=== PATIENT | male | born 1980 | race Caucasian/White ===

== ENCOUNTER 2023-05-07 08:27 | Outpatient (OUT) | payer OTHER, SELFPAY ==
--- NOTE | 2023-05-07 08:49 | MR_ITS ---
The [address] [address] Patient Name: TAHIRA IVEY MRN: [id number] date: 1980 Sex: M Assigned Patient Location: MRI Current Patient Location: MRI Accession/Order Number: [id number] Exam Date: 05/07/2023 09:00 Report Date: 05/07/2023 09:49 At the request of: PEGGY ALDANA Procedure: MR shoulder RT wo con EXAM: MR shoulder RT wo con HISTORY: Right shoulder pain Internal Derangement Of Right Shoulder M24.811 COMPARISON: None. TECHNIQUE: Multi planar, multisequence MR imaging of the right shoulder without contrast. Findings: Acromioclavicular: Minimal acromioclavicular joint osteoarthritis. The acromion is mildly curved. No os acromiale. Rotator cuff: There is a thin partial thickness 0.3 cm tear involving the insertional fibers of the anterior supraspinatus tendon (image #9 series [id number]). The infraspinatus, teres minor and subscapularis tendons are intact. No full-thickness rotator cuff tear. No significant rotator cuff muscle volume loss or edema. Biceps tendons: The visualized portions of the biceps tendons are intact and the long head resides within the groove. Glenohumeral joint: No glenohumeral joint effusion. The labrum is grossly intact within the limits of this nonarthrogram study. Miscellaneous: No acute fracture or malalignment. No focal bone marrow edema. No subacromial or subdeltoid bursal fluid. MR/MR shoulder RT wo con IMPRESSION: 1. Small partial thickness insertional tear of the supraspinatus tendon. Electronically authenticated by: BECKY LACKEY Date: 05/07/2023 09:49
== END 2023-05-07 08:28 | disposition home or self-care (01) ==
LOC: MRI 08:32
PROVIDERS: PCP Nurse Practitioner; Visit Provider Personal Emergency Response Attendant
DX: M24.811 Other specific joint derangements of right shoulder, not elsewhere classified (principal); M75.101 Unspecified rotator cuff tear or rupture of right shoulder, not specified as traumatic
CPT/HCPCS: 73221

== ENCOUNTER 2023-05-12 09:40 | Outpatient (OUT) | payer OTHER, SELFPAY ==
[2023-05-12 10:04] LABS: Bilirubin Urine NEGATIVE (NEGATIVE); Blood Urine NEGATIVE (NEGATIVE); Clarity Urine CLEAR (CLEAR); Color Urine LT. YELLOW (YELLOW); Glucose Urine UA NEGATIVE (NEGATIVE); Ketones Urine NEGATIVE (NEGATIVE); Leukocyte Esterase Urine NEGATIVE (NEGATIVE); Nitrite Urine NEGATIVE (NEGATIVE); Protein Urine NEGATIVE (NEG/TRACE); Urobilinogen Urine 0.2 EU/dL (0.2-1.0)
[2023-05-12 10:04] LABS: Basophils Absolute Auto 0.2 10^3/uL (0.0-0.1); Basophils Percent Auto 1.6 % (0.2-2.0); Eosinophils Absolute Auto 0.3 10^3/uL (0.0-0.7); Eosinophils Percent Auto 3.2 % (0.9-7.0); Hematocrit 43.4 % (42.0-54.0); Hemoglobin 15.1 g/dL (14.0-18.0); Immature Granulocytes Abs Auto 0.07 10^3/uL (0.00-0.03); Immature Granulocytes Pct Auto 0.8 % (0.0-0.5); Lymphocytes Absolute Auto 2.7 10^3/uL (1.2-3.8); Lymphocytes Percent Auto 29.5 % (20.5-60.0); Mean Corpuscular HGB Conc 34.8 g/dL (29.9-35.2); Mean Corpuscular Hemoglobin 31.5 pg (25.9-34.0); Mean Corpuscular Volume 90.6 fL (80.0-94.0); Mean Platelet Volume 9.4 fL (9.5-13.5); Monocytes Absolute Auto 0.9 10^3/uL (0.3-0.8); Monocytes Percent Auto 9.3 % (1.7-12.0); Neutrophils Absolute Auto 5.1 10^3/uL (1.4-6.5); Neutrophils Percent Auto 55.6 % (43.0-75.0); Platelet Count 287 10^3/uL (150-450); Red Blood Count 4.79 10^6/uL (4.70-6.10); White Blood Count 9.1 10^3/uL (4.0-11.0)
[2023-05-12 10:13] LABS: RBC Urine NONE SEEN #/HPF (0-2); WBC Urine NONE SEEN #/HPF (NONE SEEN)
[2023-05-12 10:14] LABS: Bacteria Urine NONE SEEN #/HPF (NONE SEEN); Cast Seen? NONE SEEN #/LPF (NONE SEEN); Crystals Seen? None Seen #/HPF (None Seen); Mucus Urine NONE SEEN (NONE SEEN); Squamous Epithelial Cell Urine NONE SEEN #/LPF (NONE/RARE)
[2023-05-12 11:39] LABS: Alanine Aminotransferase 60 U/L (16-63); Albumin Globulin Ratio 1.1; Albumin Level 3.8 g/dL (3.4-5.0); Alkaline Phosphatase 78 U/L (46-116); Anion Gap 10.5; Aspartate Amino Transferase 18 U/L (15-37); BUN Creatinine Ratio 8.9; Bilirubin Total 0.4 mg/dL (0.2-1.0); Calcium 8.8 mg/dL (8.5-10.1); Carbon Dioxide 28.4 mmol/L (21.0-32.0); Chloride 105 mmol/L (98-107); Chol HDL Ratio 3.6; Cholesterol 155 mg/dL (<=200); Estimated GFR (African America >60 (>=60); Estimated GFR (Non-African Ame >60 (>=60); Globulin 3.4 g/dL; Glucose 95 mg/dL (74-106); HDL Cholesterol 43 mg/dL (40-60); LDL Cholesterol Calculated 91.8 mg/dL; Potassium 3.9 mmol/L (3.5-5.1); Sodium 140 mmol/L (136-145); Thyroid Stimulating Hormone 2.098 uIU/mL (0.358-3.740); Total Protein 7.2 g/dL (6.4-8.2); Triglycerides 101 mg/dL (<=150); VLDL CHOLESTEROL 20.2 mg/dL
== END 2023-05-12 09:41 | disposition home or self-care (01) ==
LOC: LAB 09:40
PROVIDERS: PCP Nurse Practitioner; Visit Provider Nurse Practitioner
DX: Z00.00 Encounter for general adult medical examination without abnormal findings (principal)
CPT/HCPCS: 36415; 80053; 80061; 81001; 84443; 85025

== ENCOUNTER 2023-06-10 08:05 | Outpatient (OUT) | payer OTHER, SELFPAY ==
[2023-06-10 08:20] LABS: Basophils Absolute Auto 0.1 10^3/uL (0.0-0.1); Basophils Percent Auto 1.5 % (0.2-2.0); Eosinophils Absolute Auto 0.2 10^3/uL (0.0-0.7); Eosinophils Percent Auto 2.3 % (0.9-7.0); Hematocrit 43.5 % (42.0-54.0); Hemoglobin 14.9 g/dL (14.0-18.0); Immature Granulocytes Abs Auto 0.06 10^3/uL (0.00-0.03); Immature Granulocytes Pct Auto 0.7 % (0.0-0.5); Lymphocytes Absolute Auto 3.1 10^3/uL (1.2-3.8); Lymphocytes Percent Auto 33.8 % (20.5-60.0); Mean Corpuscular HGB Conc 34.3 g/dL (29.9-35.2); Mean Corpuscular Hemoglobin 30.8 pg (25.9-34.0); Mean Corpuscular Volume 90.1 fL (80.0-94.0); Mean Platelet Volume 9.1 fL (9.5-13.5); Monocytes Absolute Auto 0.8 10^3/uL (0.3-0.8); Monocytes Percent Auto 8.5 % (1.7-12.0); Neutrophils Absolute Auto 4.8 10^3/uL (1.4-6.5); Neutrophils Percent Auto 53.2 % (43.0-75.0); Platelet Count 324 10^3/uL (150-450); Red Blood Count 4.83 10^6/uL (4.70-6.10); Red Cell Distribution Width 11.9 % (11.0-15.0); White Blood Count 9.1 10^3/uL (4.0-11.0)
== END 2023-06-10 08:06 | disposition home or self-care (01) ==
LOC: LAB 08:06
PROVIDERS: PCP Nurse Practitioner; Visit Provider Nurse Practitioner
DX: R79.89 Other specified abnormal findings of blood chemistry (principal)
CPT/HCPCS: 36415; 85025

== ENCOUNTER 2023-09-18 08:50 | Outpatient (OUT) | payer OTHER, SELFPAY ==
--- OUTSIDE RECORDS SUMMARY | 2023-09-18 08:55 | XMS_ITS | CCD ---
Author Name Unknown Address [address] [place] [address] Organization [facility] Care Team Providers Care Lottery Manager Name Role Phone AICHHOLZ, GAS MASK ASSEMBLER [place] Admitting Unavailable AICHHOLZ, GAS MASK ASSEMBLER [place] Attending Unavailable AICHHOLZ, GAS MASK ASSEMBLER [place] Primary Care Unavailable AICHHOLZ, GAS MASK ASSEMBLER [place] Consulting Unavailable AICHHOLZ, GAS MASK ASSEMBLER [place] Admitting Unavailable AICHHOLZ, GAS MASK ASSEMBLER [place] Attending Unavailable AICHHOLZ, GAS MASK ASSEMBLER [place] Primary Care Unavailable AICHHOLZ, GAS MASK ASSEMBLER [place] Consulting Unavailable AICHHOLZ, GAS MASK ASSEMBLER [place] Admitting Unavailable AICHHOLZ, GAS MASK ASSEMBLER [place] Attending Unavailable AICHHOLZ, GAS MASK ASSEMBLER [place] Primary Care Unavailable DR LISSETH SANTOS V Consulting Unavailable AICHHOLZ, GAS MASK ASSEMBLER [place] Consulting Unavailable AICHHOLZ, GAS MASK ASSEMBLER [place] Admitting Unavailable AICHHOLZ, GAS MASK ASSEMBLER [place] Attending Unavailable AICHHOLZ, GAS MASK ASSEMBLER [place] Primary Care Unavailable Aichholz PRODUCTION ASSEMBLER, [place] Unavailable Aichholz PRODUCTION ASSEMBLER, [place] Unavailable Montrell Serrano MD Primary Care Provider Montrell Serrano MD Primary Care Provider [phone] PEGGY NOVA Attending Unavailable NORAH HANCOCK Attending Unavailable PEGGY NOVA Referring Unavailable SHIRA MAZA Attending Unavailable PEGGY NOVA Referring Unavailable NIKKI OLGUIN Attending Unavailable PEGGY NOVA Referring Unavailable SHIRA MAZA Attending Unavailable PEGGY NOVA Referring Unavailable MELVIN STARK Attending Unavailable PEGGY NOVA Referring Unavailable MELVIN STARK Attending Unavailable PEGGY NOVA Referring Unavailable PASQUALE WILSON Attending Unavailable PEGGY NOVA Referring Unavailable PASQUALE WILSON Attending Unavailable PEGGY NOVA Referring Unavailable MELVIN STARK Attending Unavailable PEGGY NOVA Referring Unavailable PEGGY NOVA Attending Unavailable NIKKI OLGUIN Attending Unavailable STEPANIC, ., MARITZA Benton Referring Unavaila ble NORAH HANCOCK Attending Unavailable STEPANIC, JR., MARITZA Benton Referring Unavaila ble MELVIN STARK Attending Unavailable STEPANIC, JR., MARITZA Benton Referring Unavaila ble SHIRA MAZA Attending Unavailable STEPANIC, JR., MARITZA Benton Referring Unavaila ble MELVIN STARK Attending Unavailable STEPANIC, JR., MARITZA Benton Referring Unavaila ble SHIRA MAZA Attending Unavailable STEPANIC, JR., MARITZA Benton Referring Unavaila ble STEPANIC, JR., MARITZA Benton Attending Unavaila ble PAIGE, SHIRA Attending Unavailable PEGGY NOVA Referring Unavailable [place] DAVEY Attending Unavailable PASQUALE WILSON Attending Unavailable PEGGY NOVA Referring Unavailable MELVIN STARK Attending Unavailable PEGGY NOVA Referring Unavailable MELVIN STARK Attending Unavailable PEGGY NOVA Referring Unavailable Allergies Allergy Classification Reported Allergen(s) Allergy Type Date of Onset Reaction(s) Facility (2 sources) Morphine Drug Allergy 10-28-2016 [facility] (2 sources) Penicillin Drug Allergy 10-28-2016 [facility] (9 sources) Morphine Drug Allergy 09-16-2018 [facility] (1 source) Penicillins Drug Allergy 09-02-2023 [facility] Medications Current Medications Medication Drug Class(es) Dates Sig (Normalized) Sig (Original) ARIPiprazole 30 mg oral tablet (9 sources) Atypical Antipsychotic take 1 tablet by mouth in the morning ARIPiprazole (Abilify) 30 MG tablet Take 1 tablet by mouth in the morning. 0 Active deutetrabenazine 9 mg oral tablet (9 sources) deutetrabenazine (Austedo) 9 MG tablet 2 tablets 0 Active naproxen 500 mg oral tablet (1 source) Nonsteroidal Anti-inflammatory Drug take 1 tablet by mouth in the morning naproxen (Naprosyn) 500 MG tablet Take 1 tablet by mouth in the morning and 1 tablet in the evening. Take with meals. 0 Active Problems Active Problems Problem Classification Problem Date Documented Date Episodic/Chronic Other non-traumatic joint disorders (14 sources) Derangement of right shoulder joint; Translations: [Other specific joint derangements of right shoulder, not elsewhere classified] Onset: 06-10-2023 06-10-2023 Chronic Residual codes; unclassified (14 sources) History of arthroscopic procedure on shoulder; Translations: [Other specified postprocedural states] Onset: 08-17-2023 08-17-2023 Episodic Past or Other Problems Problem Classification Problem Date Documented Da te Episodic/Chronic Cardiac dysrhythmias (4 sources) Palpitations; Translations: [PALPITATIONS] Onset: 08-30-2021 Episodic Other lower respiratory disease (1 source) Dyspnea, unspecified; Translations: [DYSPNEA UNSPECIFIED] Onset: 08-22-2021 Episodic Results Test Name Value Interpretation Reference Range Facil ity CBC AUTO DIFFon 04-23-2022 BASO # 0.1 103/ul Normal 0.0-0.1 [facility] Comment on above: Performed By: #### C BC #### [facility] [address] [place] [address] Dr. Lazara Mott Basophils/100 WBC (Bld) 1.4 % Normal 0.2-2.0 [facility] Comment on above: Performed By: #### C BC #### [facility] [address] [address] [address] Lazara Mott EO # 0.3 103/ul Normal 0.0-0.7 [facility] Comment on above: Performed By: #### C BC #### [facility] [address] [place] [address] Dr. Lazara Mott Eosinophils/100 WBC (Bld) 3.1 % Normal 0.9-7.0 [facility] Comment on above: Performed By: #### C BC #### [facility] [address] [place] [address] Dr. Lazara Mott Erythrocyte distribution width (RBC) [Ratio] 12.2 % Normal 11.0-15.0 [facility] Comment on above: Performed By: #### C BC #### [facility] [address] [place] [address] Dr. Lazara Mott Hematocrit (Bld) [Volume fraction] 45.0 % Normal 42.0-54.0 [facility] Comment on above: Performed By: #### C BC #### [facility] [address] [address] [address] Lazara Mott Hemoglobin (Bld) [Mass/Vol] 15.2 g/dL Normal 14.0-18.0 [facility] Comment on above: Performed By: #### C BC #### [facility] [address] [address] [address] Lazara Mott IG # 0.06 10e3/ul Critically high 0.00-0.03 [facility] Comment on above: Performed By: #### C BC #### [facility] [address] [address] [address] Lazara Mott IG % 0.7 % Critically high 0.0-0.5 [facility] Comment on above: Performed By: #### C BC #### [facility] [address] [place] [address] Dr. Lazara Mott LYMPH # 2.5 103/ul Normal 1.2-3.8 [facility] Comment on above: Performed By: #### C BC #### [facility] [address] [place] [address] Dr. Lazara Mott Lymphocytes/100 WBC (Bld) 31.5 % Normal 20.5-60.0 [facility] Comment on above: Performed By: #### C BC #### [facility] [address] [place] [address] Dr. Lazara Mott MANUAL DIFF REQ NO Normal [facility] Comment on above: Performed By: #### C BC #### [facility] [address] [address] [address] Lazara Mott MCH (RBC) [Entitic mass] 30.6 pg Normal 25.9-34.0 [facility] Comment on above: Performed By: #### C BC #### [facility] [address] [place] [address] Dr. Lazara Mott MCHC (RBC) [Mass/Vol] 33.8 g/dL Normal 29.9-35.2 [facility] Comment on above: Performed By: #### C BC #### [facility] [address] [address] [address] Lazara Mott MCV (RBC) [Entitic vol] 90.7 fL Normal 80.0-94.0 [facility] Comment on above: Performed By: #### C BC #### [facility] [address] [place] [address] Dr. Lazara Mott MONO # 0.7 103/ul Normal 0.3-0.8 [facility] Comment on above: Performed By: #### C BC #### [facility] [address] [place] [address] Dr. Lazara Mott Monocytes/100 WBC (Bld) 8.7 % Normal 1.7-12.0 [facility] Comment on above: Performed By: #### C BC #### [facility] [address] [place] [address] Dr. Lazara Mott NEUT # 4.4 103/ul Normal 1.4-6.5 [facility] Comment on above: Performed By: #### C BC #### [facility] [address] [place] [address] Dr. Lazara Mott Neutrophils/100 WBC (Bld) 54.6 % Normal 43.0-75.0 [facility] Comment on above: Performed By: #### C BC #### [facility] [address] [place] [address] Dr. Lazara Mott Platelet mean volume (Bld) [Entitic vol] 9.9 fL Normal 9.5-13.5 [facility] Comment on above: Performed By: #### C BC #### [facility] [address] [place] [address] Dr. Lazara Mott PLT 297 103/ul Normal 150-450 [facility] Comment on above: Performed By: #### C BC #### [facility] [address] [place] [address] Dr. Lazara Mott RBC 4.96 106/ul Normal 4.70-6.10 [facility] Comment on above: Performed By: #### C BC #### [facility] [address] [place] [address] Dr. Lazara Mott WBC 8.0 103/ul Normal 4.0-11.0 [facility] Comment on above: Performed By: #### C BC #### [facility] [address] [address] [address] Lazara Mott LIPID PROFILEon 04-23-2022 CHOL-HDL RATIO NORM SEE BELOW Normal [facility] Comment on above: Result Comment: 3.3 - 4.4 LOW RISK 4.4 - 7.1 AVERAGE RISK 7.1 - 11.0 MODERATE RISK >11.0 HIGH RISK Performed By: #### T SH, LIPID, CMP #### [facility] [address] [address] [address] Lazara Mott Cholesterol [Mass/Vol] 145 mg/dL Normal <=200 [facility] Comment on above: Performed By: #### T SH, LIPID, CMP #### [facility] [address] [place] [address] Dr. Lazara Mott Cholesterol in HDL [Mass/Vol] 43 mg/dL Normal 40-60 [facility] Comment on above: Performed By: #### T SH, LIPID, CMP #### [facility] [address] [address] [address] Lazara Mott Cholesterol in LDL [Mass/Vol] 62.0 mg/dL Normal [facility] Comment on above: Performed By: #### T SH, LIPID, CMP #### [facility] [address] [address] [address] Lazara Mott Cholesterol.total/C holesterol in HDL [Mass ratio] 3.4 {ratio} Normal [facility] Comment on above: Performed By: #### T SH, LIPID, CMP #### [facility] [address] [address] [address] Lazara Mott HDL NORMAL > or = 60 mg/dl - LO W CARDIOVASCULAR RISK <40 mg/dl - HIGH CARDIOVASCULAR RISK Normal [facility] Comment on above: Performed By: #### T SH, LIPID, CMP #### [facility] [address] [address] [address] Lazara Mott LDL CALC NORMAL SEE BELOW Normal [facility] Comment on above: Result Comment: <100 mg/dl OPTIMAL 100 - 129 mg/dl NEAR OR ABOVE OPTIMAL 130 - 159 mg/dl BORDERLINE HIGH 160 - 189 mg/dl HIGH >190 mg/dl VERY HIGH Performed By: #### T JOSEMANUEL LIPID, CMP #### [facility] [address] [place] [address] Dr. Lazara Mott Triglyceride [Mass/Vol] 200 mg/dL Critically high <=150 [facility] Comment on above: Performed By: #### T JOSEMANUEL, LIPID, CMP #### [facility] [address] [address] [address] Lazara Mott VLDL CALC 40.0 mg/dL Normal [facility] Comment on above: Performed By: #### T JOSEMANUEL LIPID, CMP #### [facility] [address] [place] [address] Dr. Lazara Mott PROF 14(COMP METB)on 022 Albumin [Mass/Vol] 4.0 g/dL Normal 3.4-5.0 [facility] Comment on above: Performed By: #### T JOSEMANUEL LIPID, CMP #### [facility] [address] [place] [address] Dr. Lazara Mott Albumin/Globulin [Mass ratio] 1.2 {ratio} Normal [facility] Comment on above: Performed By: #### T JOSEMANUEL LIPID, CMP #### [facility] [address] [place] [address] Dr. Lazara Mott ALP [Catalytic activity/Vol] 80 U/L Normal 46-116 [facility] Comment on above: Performed By: #### T JOSEMANUEL LIPID, CMP #### [facility] [address] [place] [address] Dr. Lazara Mott ALT [Catalytic activity/Vol] 67 U/L Critically high 16-63 [facility] Comment on above: Performed By: #### T JOSEMANUEL LIPID, CMP #### [facility] [address] [place] [address] Dr. Lazara Mott Anion gap [Moles/Vol] 13.9 mmol/L Normal [facility] Comment on above: Performed By: #### T JOSEMANUEL, LIPID, CMP #### [facility] [address] [address] [address] Lazara Mott AST [Catalytic activity/Vol] 26 U/L Normal 15-37 [facility] Comment on above: Performed By: #### T SH, LIPID, CMP #### [facility] [address] [address] [address] Lazara Mott Bilirubin [Mass/Vol] 0.6 mg/dL Normal 0.2-1.0 [facility] Comment on above: Performed By: #### T SH, LIPID, CMP #### [facility] [address] [address] [address] Lazara Mott Calcium [Mass/Vol] 8.9 mg/dL Normal 8.5-10.1 [facility] Comment on above: Performed By: #### T SH, LIPID, CMP #### [facility] [address] [place] [address] Dr. Lazara Mott Chloride [Moles/Vol] 102 mmol/L Normal 98-107 [facility] Comment on above: Performed By: #### T SH, LIPID, CMP #### [facility] [address] [place] [address] Dr. Lazara Mott CO2 [Moles/Vol] 24.9 mmol/L Normal 21.0-32.0 [facility] Comment on above: Performed By: #### T SH, LIPID, CMP #### [facility] [address] [place] [address] Dr. Lazara Mott Creatinine [Mass/Vol] 1.13 mg/dL Normal 0.70-1.30 [facility] Comment on above: Performed By: #### T SH, LIPID, CMP #### [facility] [address] [place] [address] Dr. Lazara Mott EGFR-AF CONGOLESE >60 Normal >=60 [facility] Comment on above: Performed By: #### T SH, LIPID, CMP #### [facility] [address] [place] [address] Dr. Lazara Mott EGFR-NON AF CONGOLESE >60 Normal >=60 [facility] Comment on above: Performed By: #### T SH, LIPID, CMP #### [facility] [address] [address] [address] Lazara Mott Globulin (S) [Mass/Vol] 3.3 g/dL Normal [facility] Comment on above: Performed By: #### T SH, LIPID, CMP #### [facility] [address] [address] [address] Lazara Mott Glucose [Mass/Vol] 87 mg/dL Normal 74-106 [facility] Comment on above: Performed By: #### T SH, LIPID, CMP #### [facility] [address] [place] [address] Dr. Lazara Mott Potassium [Moles/Vol] 3.8 mmol/L Normal 3.5-5.1 [facility] Comment on above: Performed By: #### T SH, LIPID, CMP #### [facility] [address] [place] [address] Dr. Lazara Mott Protein [Mass/Vol] 7.3 g/dL Normal 6.4-8.2 [facility] Comment on above: Performed By: #### T SH, LIPID, CMP #### [facility] [address] [place] [address] Dr. Lazara Mott Sodium [Moles/Vol] 137 mmol/L Normal 136-145 [facility] Comment on above: Performed By: #### T JOSEMANUEL, LIPID, CMP #### [facility] [address] [place] [address] Dr. Lazara Mott Urea nitrogen [Mass/Vol] 9.0 mg/dL Normal 7.0-18.0 [facility] Comment on above: Performed By: #### T SH, LIPID, CMP #### [facility] [address] [place] [address] Dr. Lazara Mott Urea nitrogen/Creatinine [Mass ratio] 8.0 mg/mg Normal [facility] Comment on above: Performed By: #### T SH, LIPID, CMP #### [facility] [address] [place] [address] Dr. Lazara Mott TSHon 04-23-2022 TSH 1.148 uIU/mL Normal 0.358-3.740 [facility] Comment on above: Performed By: #### T SH, LIPID, CMP #### [facility] [address] [address] [address] Lazara Mott UA RANDOM W/MICROSCOPICon AMORPHOUS CRYSTALS MODERATE Normal [facility] Comment on above: Performed By: #### U AMIC #### [facility] [address] [place] [address] Dr. Lazara Mott BACTERIA NONE SEEN Normal NONE SEEN [facility] Comment on above: Performed By: #### U AMIC #### [facility] [address] [address] [address] Lazara Mott Bilirubin Ql (U) Negative Normal NEGATIVE [facility] Comment on above: Performed By: #### U AMIC #### [facility] [address] [place] [address] Dr. Lazara Mott CAST NONE SEEN Normal NONE SEEN [facility] Comment on above: Performed By: #### U AMIC #### [facility] [address] [address] [address] Lazara Mott Clarity (U) SL CLOUDY Abnormal CLEAR [facility] Comment on above: Performed By: #### U AMIC #### [facility] [address] [place] [address] Dr. Lazara Mott Color (U) LT. YELLOW Normal YELLOW [facility] Comment on above: Performed By: #### U AMIC #### [facility] [address] [address] [address] Lazara Mott Crystals LM Nom (Urine sed) SEEN Abnormal NONE SEEN [facility] Comment on above: Performed By: #### U AMIC #### [facility] [address] [place] [address] Dr. Lazara Mott Epithelial cells LM Ql (Urine sed) NONE SEEN Normal NONE SEEN /RARE [facility] Comment on above: Performed By: #### U AMIC #### [facility] [address] [place] [address] Dr. Lazara Mott Glucose Ql (U) Negative Normal NEGATIVE [facility] Comment on above: Performed By: #### U AMIC #### [facility] [address] [address] [address] Lazara Mott Hemoglobin Ql (U) Negative Normal NEGATIVE [facility] Comment on above: Performed By: #### U AMIC #### [facility] [address] [address] [address] Lazara Mott Ketones Ql (U) Negative Normal NEGATIVE [facility] Comment on above: Performed By: #### U AMIC #### [facility] [address] [address] [address] Lazara Mott LEUKOCYTES Negative Normal NEGATIVE [facility] Comment on above: Performed By: #### U AMIC #### [facility] [address] [place] [address] Dr. Lazara Mott MUCOUS NONE SEEN Normal NONE SEEN [facility] Comment on above: Performed By: #### U AMIC #### [facility] [address] [address] [address] Lazara Mott Nitrite Ql (U) Negative Normal NEGATIVE [facility] Comment on above: Performed By: #### U AMIC #### [facility] [address] [address] [address] Lazara Mott pH (U) 8.5 [pH] Normal 5-9 [facility] Comment on above: Performed By: #### U AMIC #### [facility] [address] [place] [address] Dr. Lazara Mott RBC 0-2 Normal 0-2 [facility] Comment on above: Performed By: #### U AMIC #### [facility] [address] [address] [address] Lazara Mott SPEC GRAVITY 1.015 Normal 1.005-<=1.025 [facility] Comment on above: Performed By: #### U AMIC #### [facility] [address] [address] [address] Lazara Mott UA PROTEIN Negative Normal NEGATIVE/ TRACE [facility] Comment on above: Performed By: #### U AMIC #### [facility] [address] [place] [address] Dr. Lazara Mott Urobilinogen Qn (U) 0.2 {Anum'U}/dL Normal 0.2 - 1. 0 [facility] Comment on above: Performed By: #### U AMIC #### [facility] [address] [place] [address] Dr. Lazara Mott WBC 0-2 Abnormal NONE SEEN [facility] Comment on above: Performed By: #### U AMIC #### [facility] [address] [place] [address] Dr. Lazara Mott CBC AUTO DIFFon 08-20-2021 BASO # 0.1 103/ul Normal 0.0-0.1 [facility] Comment on above: Performed By: #### C MP, TSH, LIPID, FT3 #### [facility] [address] [place] [address] Dr. Lazara Mott Basophils/100 WBC (Bld) 1.1 % Normal 0.2-2.0 [facility] Comment on above: Performed By: #### C MP, TSH, LIPID, FT3 #### [facility] [address] [place] [address] Dr. Lazara Mott EO # 0.2 103/ul Normal 0.0-0.7 [facility] Comment on above: Performed By: #### C MP, TSH, LIPID, FT3 #### [facility] [address] [place] [address] Dr. Lazara Mott Eosinophils/100 WBC (Bld) 2.3 % Normal 0.9-7.0 [facility] Comment on above: Performed By: #### C MP, TSH, LIPID, FT3 #### [facility] [address] [place] [address] Dr. Lazara Mott Erythrocyte distribution width (RBC) [Ratio] 12.1 % Normal 11.0-15.0 [facility] Comment on above: Performed By: #### C MP, TSH, LIPID, FT3 #### [facility] [address] [place] [address] Dr. Lazara Mott Hematocrit (Bld) [Volume fraction] 42.4 % Normal 42.0-54.0 [facility] Comment on above: Performed By: #### C MP, TSH, LIPID, FT3 #### [facility] [address] [address] [address] Lazara Mott Hemoglobin (Bld) [Mass/Vol] 14.5 g/dL Normal 14.0-18.0 [facility] Comment on above: Performed By: #### C MP, TSH, LIPID, FT3 #### [facility] [address] [place] [address] Dr. Lazara Mott IG # 0.04 10e3/ul Critically high 0.00-0.03 [facility] Comment on above: Performed By: #### C MP, TSH, LIPID, FT3 #### [facility] [address] [place] [address] Dr. Lazara Mott IG % 0.5 % Normal 0.0-0.5 [facility] Comment on above: Performed By: #### C MP, TSH, LIPID, FT3 #### [facility] [address] [place] [address] Dr. Lazara Mott LYMPH # 2.5 103/ul Normal 1.2-3.8 [facility] Comment on above: Performed By: #### C MP, TSH, LIPID, FT3 #### [facility] [address] [place] [address] Dr. Lazara Mott Lymphocytes/100 WBC (Bld) 31.3 % Normal 20.5-60.0 [facility] Comment on above: Performed By: #### C MP, TSH, LIPID, FT3 #### [facility] [address] [place] [address] Dr. Lazara Mott MANUAL DIFF REQ NO Normal [facility] Comment on above: Performed By: #### C MP, TSH, LIPID, FT3 #### [facility] [address] [place] [address] Dr. Lazara Mott MCH (RBC) [Entitic mass] 30.7 pg Normal 25.9-34.0 [facility] Comment on above: Performed By: #### C MP, TSH, LIPID, FT3 #### [facility] [address] [place] [address] Dr. Lazara Mott MCHC (RBC) [Mass/Vol] 34.2 g/dL Normal 29.9-35.2 [facility] Comment on above: Performed By: #### C MP, TSH, LIPID, FT3 #### [facility] [address] [place] [address] Dr. Lazara Mott MCV (RBC) [Entitic vol] 89.6 fL Normal 80.0-94.0 [facility] Comment on above: Performed By: #### C MP, TSH, LIPID, FT3 #### [facility] [address] [place] [address] Dr. Lazara Mott MONO # 0.8 103/ul Normal 0.3-0.8 [facility] Comment on above: Performed By: #### C MP, TSH, LIPID, FT3 #### [facility] [address] [place] [address] Dr. Lazara Mott Monocytes/100 WBC (Bld) 10.2 % Normal 1.7-12.0 [facility] Comment on above: Performed By: #### C MP, TSH, LIPID, FT3 #### [facility] [address] [place] [address] Dr. Lazara Mott NEUT # 4.3 103/ul Normal 1.4-6.5 [facility] Comment on above: Performed By: #### C MP, TSH, LIPID, FT3 #### [facility] [address] [place] [address] Dr. Lazara Mott Neutrophils/100 WBC (Bld) 54.6 % Normal 43.0-75.0 [facility] Comment on above: Performed By: #### C MP, TSH, LIPID, FT3 #### [facility] [address] [place] [address] Dr. Lazara Mott Platelet mean volume (Bld) [Entitic vol] 9.3 fL Critically low 9.5-13.5 [facility] Comment on above: Performed By: #### C MP, TSH, LIPID, FT3 #### [facility] [address] [place] [address] Dr. Lazara Mott PLT 294 103/ul Normal 150-450 [facility] Comment on above: Performed By: #### C MP, TSH, LIPID, FT3 #### [facility] [address] [address] [address] Lazara Mott RBC 4.73 106/ul Normal 4.70-6.10 [facility] Comment on above: Performed By: #### C MP, TSH, LIPID, FT3 #### [facility] [address] [place] [address] Dr. Lazara Mott WBC 7.9 103/ul Normal 4.0-11.0 [facility] Comment on above: Performed By: #### C MP, TSH, LIPID, FT3 #### [facility] [address] [place] [address] Dr. Lazara Mott FREE T3on 08-20-2021 FREE T3 3.42 pg/mlL Normal 2.77-5.27 [facility] Comment on above: Performed By: #### C MP, TSH, LIPID, FT3 #### [facility] [address] [place] [address] Dr. Lazara Mott FREE T4on 08-20-2021 Free T4 [Mass/Vol] 0.95 ng/dL Normal 0.78-2.19 [facility] Comment on above: Performed By: #### C MP, TSH, LIPID, FT3 #### [facility] [address] [place] [address] Dr. Lazara Mott LIPID PROFILEon 08-20-2021 CHOL-HDL RATIO NORM SEE BELOW Normal [facility] Comment on above: Result Comment: 3.3 - 4.4 LOW RISK 4.4 - 7.1 AVERAGE RISK 7.1 - 11.0 MODERATE RISK >11.0 HIGH RISK Performed By: #### C MP, TSH, LIPID, FT3 #### [facility] [address] [place] [address] Dr. Lazara Mott Cholesterol [Mass/Vol] 159 mg/dL Normal <=200 [facility] Comment on above: Performed By: #### C MP, TSH, LIPID, FT3 #### [facility] [address] [address] [address] Lazara Mott Cholesterol in HDL [Mass/Vol] 41 mg/dL Normal [facility] Comment on above: Performed By: #### C MP, TSH, LIPID, FT3 #### [facility] [address] [address] [address] Lazara Mott Cholesterol in LDL [Mass/Vol] 94.0 mg/dL Normal [facility] Comment on above: Performed By: #### C MP, TSH, LIPID, FT3 #### [facility] [address] [address] [address] Lazara Mott Cholesterol.total/C holesterol in HDL [Mass ratio] 3.9 {ratio} Normal [facility] Comment on above: Performed By: #### C MP, TSH, LIPID, FT3 #### [facility] [address] [address] [address] Lazara Mott HDL NORMAL > or = 60 mg/dl - LO W CARDIOVASCULAR RISK <40 mg/dl - HIGH CARDIOVASCULAR RISK Normal [facility] Comment on above: Performed By: #### C MP, TSH, LIPID, FT3 #### [facility] [address] [address] [address] Lazara Mott LDL CALC NORMAL SEE BELOW Normal [facility] Comment on above: Result Comment: <100 mg/dl OPTIMAL 100 - 129 mg/dl NEAR OR ABOVE OPTIMAL 130 - 159 mg/dl BORDERLINE HIGH 160 - 189 mg/dl HIGH >190 mg/dl VERY HIGH Performed By: #### C MP, TSH, LIPID, FT3 #### [facility] [address] [address] [address] Lazara Mott Triglyceride [Mass/Vol] 120 mg/dL Normal <=150 [facility] Comment on above: Performed By: #### C MP, TSH, LIPID, FT3 #### [facility] [address] [address] [address] Lazara Mott VLDL CALC 24.0 mg/dL Normal [facility] Comment on above: Performed By: #### C MP, TSH, LIPID, FT3 #### [facility] [address] [place] [address] Dr. Lazara Mott PROF 14(COMP METB)on 022 Albumin [Mass/Vol] 4.1 g/dL Normal 3.5-5.0 [facility] Comment on above: Performed By: #### C MP, TSH, LIPID, FT3 #### [facility] [address] [place] [address] Dr. Lazara Mott Albumin/Globulin [Mass ratio] 1.2 {ratio} Normal [facility] Comment on above: Performed By: #### C MP, TSH, LIPID, FT3 #### [facility] [address] [place] [address] Dr. Lazara Mott ALP [Catalytic activity/Vol] 79 U/L Normal 38-126 [facility] Comment on above: Performed By: #### C MP, TSH, LIPID, FT3 #### [facility] [address] [place] [address] Dr. Lazara Mott ALT [Catalytic activity/Vol] 76 U/L Critically high 21-72 [facility] Comment on above: Performed By: #### C MP, TSH, LIPID, FT3 #### [facility] [address] [place] [address] Dr. Lazara Mott Anion gap [Moles/Vol] 10.6 mmol/L Normal [facility] Comment on above: Performed By: #### C MP, TSH, LIPID, FT3 #### [facility] [address] [place] [address] Dr. Lazara Mott AST [Catalytic activity/Vol] 21 U/L Normal 17-59 [facility] Comment on above: Performed By: #### C MP, TSH, LIPID, FT3 #### [facility] [address] [place] [address] Dr. Lazara Mott Bilirubin [Mass/Vol] 0.4 mg/dL Normal 0.2-1.3 [facility] Comment on above: Performed By: #### C MP, TSH, LIPID, FT3 #### [facility] [address] [address] [address] Lazara Mott Calcium [Mass/Vol] 9.0 mg/dL Normal 8.4-10.2 [facility] Comment on above: Performed By: #### C MP, TSH, LIPID, FT3 #### [facility] [address] [address] [address] Lazara Mott Chloride [Moles/Vol] 104 mmol/L Normal 98-107 [facility] Comment on above: Performed By: #### C MP, TSH, LIPID, FT3 #### [facility] [address] [address] [address] Lazara oMtt CO2 [Moles/Vol] 27.1 mmol/L Normal 22.0-30.0 [facility] Comment on above: Performed By: #### C MP, TSH, LIPID, FT3 #### [facility] [address] [address] [address] Lazara Mott Creatinine [Mass/Vol] 1.13 mg/dL Normal 0.66-1.25 [facility] Comment on above: Performed By: #### C MP, TSH, LIPID, FT3 #### [facility] [address] [address] [address] Lazara Mott EGFR-AF CONGOLESE >60 Normal >=60 [facility] Comment on above: Performed By: #### C MP, TSH, LIPID, FT3 #### [facility] [address] [address] [address] Lazara Mott EGFR-NON AF CONGOLESE >60 Normal >=60 [facility] Comment on above: Performed By: #### C MP, TSH, LIPID, FT3 #### [facility] [address] [address] [address] Lazara Mott Globulin (S) [Mass/Vol] 3.3 g/dL Normal [facility] Comment on above: Performed By: #### C MP, TSH, LIPID, FT3 #### [facility] [address] [address] [address] Lazara Mott Glucose [Mass/Vol] 95 mg/dL Normal 74-106 [facility] Comment on above: Performed By: #### C MP, TSH, LIPID, FT3 #### [facility] [address] [address] [address] Lazara Mott Potassium [Moles/Vol] 3.7 mmol/L Normal 3.4-5.0 [facility] Comment on above: Performed By: #### C MP, TSH, LIPID, FT3 #### [facility] [address] [place] [address] Dr. Lazara Mott Protein [Mass/Vol] 7.4 g/dL Normal 6.1-8.2 [facility] Comment on above: Performed By: #### C MP, TSH, LIPID, FT3 #### [facility] [address] [place] [address] Dr. Lazara Mott Sodium [Moles/Vol] 138 mmol/L Normal 137-145 [facility] Comment on above: Performed By: #### C MP, TSH, LIPID, FT3 #### [facility] [address] [place] [address] Dr. Lazara Mott Urea nitrogen [Mass/Vol] 13.0 mg/dL Normal 9.0-20.0 [facility] Comment on above: Performed By: #### C MP, TSH, LIPID, FT3 #### [facility] [address] [place] [address] Dr. Lazara Mott Urea nitrogen/Creatinine [Mass ratio] 11.5 mg/mg Normal [facility] Comment on above: Performed By: #### C MP, TSH, LIPID, FT3 #### [facility] [address] [place] [address] Dr. Lazara Mott TSHon 08-20-2021 TSH 2.329 uIU/mL Normal 0.470-4.680 [facility] Comment on above: Performed By: #### C MP, TSH, LIPID, FT3 #### [facility] [address] [place] [address] Dr. Lazara Mott TSH RANGE SEE BELOW Normal [facility] Comment on above: Result Comment: <0.3 4 UIU/ml HYPERTHYROID 0.34-5.60 UIU/ml EUTHYROID >5.60 UIU/ml HYPOTHYROID Performed By: #### C MP, TSH, LIPID, FT3 #### [facility] [address] [address] [address] Lazara Mott XR CHEST 2 Von 08-20-2021 XR CHEST 2 V EXAMINATION: XR CHES T 2 V HISTORY: Dyspnea COMPARISON: No relevant comparison available. TECHNIQUE: PA and lateral FINDINGS: LUNGS: No significant pulmonary parenchymal abnormalities. VASCULATURE: No increased pulmonary vasculature. PLEURA: No pneumothorax, effusion, or pleural thickening. CARDIAC: No cardiomegaly or cardiac silhouette abnormality. MEDIASTINUM: No visible mass or adenopathy. BONES: No fracture or visible bone lesion. OTHER: Negative. IMPRESSION: No acute disease. Electronically authenticated by: LISSETH SANTOS Date: 2021-08-20 10:06 Normal [facility] Encounters Encounter Date Encounter Type Care Provider Facility Start: 09-15-2023 End: 09-15-2023 ambulatory MELVIN LINCOLN Not Available Start: 09-11-2023 End: 09-11-2023 ambulatory MELVIN LINCOLN Not Available Start: 09-09-2023 End: 09-09-2023 ambulatory PASQUALE WILSON Not Available Start: 09-08-2023 End: 09-08-2023 ambulatory GEORGIA GILBERTSandyVINNY Not Available Start: 09-07-2023 End: 09-07-2023 ambulatory SHIRA MAZA Not Available Start: 09-04-2023 End: 09-04-2023 ambulatory MELVIN LINCOLN Not Available Start: 09-02-2023 End: 09-02-2023 ambulatory Pasquale Wilson PT Work Phone: [facility] Comment on above: Internal derangement of right shoulder (Primary Dx); S/P arthroscopy of right shoulder Start: 08-31-2023 Bamboo dominga radford PT Work Phone: [facility] Start: 08-31-2023 Bamboo flowsheet Pasquale radford PT Work Phone: [facility] Start: 08-31-2023 End: 08-31-2023 ambulatory Pasquale Wilson PT Work Phone: [facility] Comment on above: Internal derangement of right shoulder (Primary Dx); S/P arthroscopy of right shoulder Start: 08-28-2023 End: 08-28-2023 ambulatory Melvin Stark MAINTENANCE SCHEDULER [facility] Comment on above: Internal derangement of right shoulder (Primary Dx); S/P arthroscopy of right shoulder Start: 08-26-2023 Bamboo flowsheet Melvin Stark PT A [facility] Start: 08-26-2023 Bamboo flowsheet Melvin Stark PT A [facility] Start: 08-26-2023 End: 08-26-2023 ambulatory MELVIN STARK Not Available Start: 08-26-2023 End: 08-26-2023 ambulatory Melvin Stark MAINTENANCE SCHEDULER [facility] Comment on above: Internal derangement of right shoulder (Primary Dx); S/P arthroscopy of right shoulder Start: 08-24-2023 Bamboo flowsheet Shira Tattersall P TA [facility] Start: 08-24-2023 Bamboo flowsheet Shira Tattersall P TA [facility] Start: 08-24-2023 End: 08-24-2023 ambulatory Shira Maza MAINTENANCE SCHEDULER [facility] Comment on above: Internal derangement of right shoulder (Primary Dx); S/P arthroscopy of right shoulder Start: 08-20-2023 End: 08-20-2023 ambulatory NIKKI OLGUIN Not Available Start: 08-18-2023 End: 08-18-2023 ambulatory SHIRA MAZA Not Available Start: 08-15-2023 End: 08-16-2023 ambulatory NORAH HANCOCK Not Available Start: 08-14-2023 End: 08-14-2023 ambulatory PEGGY NOVA Not Available Start: 07-21-2023 End: 07-21-2023 ambulatory PEGGY NOVA Not Available Start: 07-08-2023 End: 07-08-2023 ambulatory MARITZA RAVI Not Available Start: 06-25-2023 End: 06-25-2023 ambulatory SHIRA MAZA Not Available Start: 06-23-2023 End: 06-23-2023 ambulatory MELVIN LINCOLN Not Available Start: 06-18-2023 End: 06-18-2023 ambulatory SHIRA MAZA Not Available Start: 06-16-2023 End: 06-16-2023 ambulatory MELVIN STARK Not Available Start: 06-10-2023 End: 06-10-2023 ambulatory NORAH HANCOCK Not Available Start: 06-08-2023 End: 06-08-2023 ambulatory NIKKI OLGUIN Not Available Start: 03-16-2023 Chart abstracting Peggy BLOOD Work Phone: [facility] Start: 04-25-2022 Encounter for genera l adult medical examination without abnormal findings MADALYN DAVEY [facility] Start: 04-23-2022 End: 04-24-2022 ambulatory MADALYN DAVEY Facility:[facility] Start: 04-23-2022 End: 04-24-2022 Encounter for general adult medical examination without abnormal findings MADALYN DAVEY Facility:[facility] Start: 10-07-2021 ambulatory MADALYN DAVEY Facil ity:[facility] Start: 08-30-2021 End: 08-31-2021 ambulatory MADALYN DAVEY Facility:[facility] Start: 08-20-2021 End: 08-21-2021 ambulatory MADALYN DAVEY Facility:[facility] Plan of Treatment Date Care Activity Detail Author Start: 09-11-2023 End: 09-11-2023 Patient encounter procedure 09/11/2023 10:45 AM EST Office Visit [facility] [address] [facility] [address] [place] [address] ePggy Nova PA [address] [facility] [address] [place] [address] [facility] Start: 09-11-2023 End: 09-11-2023 ambulatory 09/11/2023 9:30 AM EST Treatment [facility] [address] [facility] [address] [place] [address] Melvin Stark PTA [facility] Start: 09-09-2023 End: 09-09-2023 ambulatory 09/09/2023 11:00 AM EST Treatment [facility] [address] [place] [address] Pasquale Wilson, PT [address] [place] [address] [facility] Start: 09-08-2023 End: 09-08-2023 Patient encounter procedure 09/08/2023 9:00 AM EST Office Visit [facility] [address] [place] [address] Georgia Davey, PRODUCTION ASSEMBLER [address] [place] [address] [facility] Start: 09-07-2023 End: 09-07-2023 ambulatory [facility] Start: 09-07-2023 End: 09-07-2023 Patient encounter procedure 09/07/2023 10:00 AM EST Office Visit [facility] [address] [facility] [address] [place] [address] Peggy Nova, PA [address] [place] [address] [facility] Start: 09-04-2023 End: 09-04-2023 ambulatory 09/04/2023 11:00 AM EST Treatment [facility] [address] [place] [address] Melvin Stark, DEEPA [facility] Start: 09-02-2023 End: 09-02-2023 ambulatory [facility] Start: 08-31-2023 End: 08-31-2023 ambulatory [facility] Comment on above: Arrived Start: 08-28-2023 End: 08-28-2023 ambulatory 08/28/2023 11:00 AM EST Treatment [facility] [address] [facility] [address] [place] [address] Melvin Stark, DEEPA [facility] Start: 08-26-2023 End: 08-26-2023 ambulatory [facility] Comment on above: Internal derangement of right shoulder (Primary Dx); S/P arthroscopy of right shoulder Start: 08-24-2023 End: 08-24-2023 ambulatory 08/24/2023 10:00 AM EST Treatment [facility] [address] [facility] [address] [place] [address] Shira Maza, MAINTENANCE SCHEDULER Arrived [facility] Comment on above: Arrived Start: 03-20-2023 Influenza vaccination Influenza Vacc ine (#1) [facility] Payers Date Payer Category Payer Unknown [employer] [id number] 2022-Present [phone] [address] [address] [place] [address] [id number] 2022 Unknown [id number] 1982 Unknown [id number] 2.16.840.1.143991.3.579.2.59 3 1982 Unknown [id number] 2.16.840.1.898283.3.579.2.59 3 1982 Unknown [id number] 2.16.840.1.260299.3.579.2.59 3 1982 Unknown [id number] 2.16.840.1.611259.3.579.2.59 3 1982 Unknown [id number] 2.16.840.1.589400.3.579.2.12 59 1982 Unknown [id number] 2.16.840.1.793545.3.579.2.12 59 1982 Unknown [id number] 2.16.840.1.172030.3.579.2.12 59 1982 Unknown [id number] 2.16.840.1.162496.3.579.2.12 59 1982 Unknown [id number] 2.16.840.1.291279.3.579.2.12 1982 Unknown [id number] 2.16.840.1.654881.3.579.2.12 1982 Unknown [id number] 2.16.840.1.485051.3.579.2.12 1982 Unknown [id number] 2.16.840.1.031191.3.579.2.12 1982 Unknown [id number] 2.16.840.1.233386.3.579.2.12 1982 Unknown [id number] 2.16.840.1.121161.3.579.2.12 1982 Unknown [id number] 2.16.840.1.223746.3.579.2.12 1982 Unknown [id number] 2.16.840.1.723514.3.579.2.12 1982 Unknown [id number] 2.16.840.1.169610.3.579.2.12 1982 Unknown [id number] 2.16.840.1.341219.3.579.2.12 1982 Unknown [id number] 2.16.840.1.934245.3.579.2.12 1982 Unknown [id number] 2.16.840.1.408562.3.579.2.12 1982 Unknown [id number] 2.16.840.1.834496.3.579.2.12 1982 Unknown [id number] 2.16.840.1.836648.3.579.2.12 1982 Unknown [id number] 2.16.840.1.109567.3.579.2.12 1982 Unknown [id number] 2.16.840.1.923227.3.579.2.12 1982 Unknown [id number] 2.16.840.1.288895.3.579.2.12 1982 Unknown [id number] 2.16.840.1.134244.3.579.2.12 59 1982 Unknown [id number] 2.16.840.1.352346.3.579.2.12 59 1982 Unknown [id number] 2.16.840.1.321374.3.579.2.12 59 1959 Self-pay [id number] 1959 Unknown [id number] Social History Date Type Detail Facility Start: 03-16-2023 Tobacco smoking status NHIS Never sm oked tobacco [facility] Start: 08-07-2023 End: 09-02-2023 Alcohol intake Current drinker of alcohol (finding) [facility] Start: 05-27-2023 End: 09-02-2023 [facility] of Social function [facility] Start: 05-27-2023 End: 09-02-2023 Alcohol Use Disorder Identification Test - Consumption [AUDIT-C] [facility] How often to you hav e a drink containing alcohol? Monthly or less [facility] How many standard dr inks containing alcohol do you have on a typical day? 1 or 2 [facility] How often do you hav e 6 or more drinks on 1 occasion? Never [facility] Start: 03-16-2023 Alcohol Comment 1-2 drinks, mo nthly or less. [facility] Start: 1980 Sex Assigned At Not on file [facility] Start: 03-16-2023 Alcohol intake Ex-drinker (finding) [facility] Start: 05-17-2023 End: 05-27-2023 Exposure to SARS-CoV-2 (event) Not sure [facility] History of Present illness Narrative 09-02-2023 Pasquale Wilson, PT - 09/02/2023 1:00 PM EST Note Date & Type Note Facility 09-02-2023 History of Presen t illness Narrative Physical Therapy Treatment Visit Visit Number: 8, $20 co-pay Time In: 1:00 pM Time Out: 2:00 PM Supervised Time: 30 min Total Time: 60 min Chief Complaint: Diagnosis: s/p right rotator cuff repair, Bankhart repair, SAD on 07/31/23 by Maritza Jane DO 2 weeks post-op on 08/14/23 Mild discomfort with removal of abduction pillow by CAITIE Smallwood last visit Precautions: PROM ONLY, NO EXTERNAL ROTATION, NO AROM , NO RESISTANCE Eval Subjective Mechanism of injury: Surgery as above 2 weeks ago. Prior: no known PILY of right shoulder internal derangement. Received PT from 05/28/23 to 06/25 for 7 treatments. Location of Symptoms: right shoulder, left hand dominant but right was stronger than left. Pain level: 07/29 currently What increases symptoms: Pain at night, pain without abductor pillow, if move a lot, shoulder becomes sore. What decreases symptoms: Motrin today prior to PT. Not icing at all. Pain radiates: R elbow to forearm Timing of pain: intermittent Numbness/tingling: none Objective Posture: upright, midline Shoulder AROM: R UE: not assessed L flex: 155* L abd: 155* L ER: 60* L IR: TL junction Shoulder PROM: R flex: 60* R abd: 55* R ER: 0* R IR: 20* Cervical AROM: WFL, no pain Muscle Strength: R fingers, thumb: WFL L UE: 5/5 all groups Palpation: anterior shoulder pain over head of humerus. Incisions closed, clean, no sign of infection. Mild swelling, no erythema Joint Play: not assessed Muscle length: decreased pec minor and major with arm in sling Special Tests: NV intact right UE. 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 Good compliance with use of sling Functional Limitations: 28/80 points, 65% impairment Correction Goals: AA/AROM R shoulder to 160 flexion and abduction by 12 weeks post-op 4-5/5 strength R shoulder by 24 weeks post-op Pt cans lift overhead, push, pull, swing a golf club without increased pain by 24 weeks post op. 0-2/10 pain with patient able to resume previous level of function by 24-36 weeks post op. Rehab Potential: good Subjective: 5/10 pain upon arrival. C/c is shoulder tightness. INTERVENTIONS: Manual therapy: PROM within protocol guidelines. Grade II joint mobilization to improve arthrokinematic motion when indicated by protocol. STM/TPR to pec and UT to reduce UE tone and improve ROM (30 min) Therapeutic exercise per protocol: instructed in pendulum exercises, written instructions provided. AROM elbow wrist and hand. (10 min) Modalities: IFC E-stim + CP to R shoulder (15 min) ASSESSMENT: Pt has participated in 8 outpatient physical therapy sessions post op R RTC repair. Compliance with all protocol guidelines. Pt demos guarding with PROM, able to relax with cueing. Able to achieve 115* flexion and abd (pronated) 85* with PROM. Compliant with HEP. Plan: PT 2x/week x 4 weeks initially per referral, continue per orders, to meet above goals. Treatment: manual therapy, therapeutic exercises, therapeutic activity, neuromuscular re-ed, modalities as needed for pain and inflammation. I hereby deem this POC medically necessary. Please sign below and fax back to the number below. Physician Signature: ____ Date: documented in this encounter [facility] History of Present illness Narrative 08-31-2023 Pasquale Wilson, PT - 08/31/2023 10:00 AM EST Note Date & Type Note Facility 08-31-2023 History of Presen t illness Narrative Physical Therapy Treatment Visit Visit Number: 02/05, $20 co-pay Time In: 10:00 AM Time Out: 11:02 PM Supervised Time: 30 min Total Time: 60 min Chief Complaint: Diagnosis: s/p right rotator cuff repair, Bankhart repair, SAD on 07/31/23 by Maritza Jane DO 2 weeks post-op on 08/14/23 Mild discomfort with removal of abduction pillow by CAITIE Smallwood last visit Precautions: PROM ONLY, NO EXTERNAL ROTATION, NO AROM , NO RESISTANCE Eval Subjective Mechanism of injury: Surgery as above 2 weeks ago. Prior: no known PILY of right shoulder internal derangement. Received PT from 05/28/23 to 06/25 for 7 treatments. Location of Symptoms: right shoulder, left hand dominant but right was stronger than left. Pain level: 1/10 currently What increases symptoms: Pain at night, pain without abductor pillow, if move a lot, shoulder becomes sore. What decreases symptoms: Motrin today prior to PT. Not icing at all. Pain radiates: R elbow to forearm Timing of pain: intermittent Numbness/tingling: none Objective Posture: upright, midline Shoulder AROM: R UE: not assessed L flex: 155* L abd: 155* L ER: 60* L IR: TL junction Shoulder PROM: R flex: 60* R abd: 55* R ER: 0* R IR: 20* Cervical AROM: WFL, no pain Muscle Strength: R fingers, thumb: WFL L UE: 5/5 all groups Palpation: anterior shoulder pain over head of humerus. Incisions closed, clean, no sign of infection. Mild swelling, no erythema Joint Play: not assessed Muscle length: decreased pec minor and major with arm in sling Special Tests: NV intact right UE. 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 0-2/10 pain with patient able to resume previous level of function by 24-36 weeks post op. Rehab Potential: good Subjective: 5/10 pain upon arrival. Shoulder continues to feel very tight. Increased shoulder pain today. INTERVENTIONS: Manual therapy: PROM within protocol guidelines. Grade II joint mobilization to improve arthrokinematic motion when indicated by protocol. STM/TPR to pec and UT to reduce UE tone and improve ROM (20 min) Therapeutic exercise per protocol: instructed in pendulum exercises, written instructions provided. AROM elbow wrist and hand. (10 min) Modalities: IFC E-stim + CP to R shoulder (15 min) ASSESSMENT: Pt has participated in 7 outpatient physical therapy sessions post op R RTC repair. Compliance with all protocol guidelines. Pt demos guarding with PROM, able to relax with cueing. Able to achieve 115* flexion and abd (pronated) 85* with PROM Completed limited therex within protocol, AAROM elbow and AROM wrist. Table slides for AAROM. Added seated passive ifeanyi to HEP and POC today. Pt. Tolerated well. Pt. Continues to demonstrate shoulder tightness but as to be expected with his surgery. Plan: PT 2x/week x 4 weeks initially per referral, continue per orders, to meet above goals. Treatment: manual therapy, therapeutic exercises, therapeutic activity, neuromuscular re-ed, modalities as needed for pain and inflammation. I hereby deem this POC medically necessary. Please sign below and fax back to the number below. Physician Signature: ____ Date: documented in this encounter [facility] Evaluation note Note Date & Type Note Facility Evaluation note Diagnosis Internal derangement of right shoulder- Primary S/P arthroscopy of right shoulder documented in this encounter [facility] Evaluation note Note Date & Type Note Facility Evaluation note Diagnosis Internal derangement of right shoulder- Primary S/P arthroscopy of right shoulder documented in this encounter [facility] Evaluation note Note Date & Type Note Facility Evaluation note Diagnosis Internal derangement of right shoulder- Primary S/P arthroscopy of right shoulder documented in this encounter [facility] Reason for visit Narrative Consultation (Routine) - Authorized Note Date & Type Note Facility Reason for visit Narrative Specialty Diagnoses / Procedures Referred By Ramiro hobson Referred To Contact Physical Therapy Diagnoses S/P arthroscopy of right shoulder Procedures PA OFFICE/OUTPATIENT [facility] 60 MINUTES Peggy Nova PA [address] [facility] [address] [place] [address] Norah Hancock, PT [address] [place] [address] Referral ID Status Reason Start Date Expiration Date Visits Requested Visits Authorized [id number] Authorized Consult and Treat 08/14/2023 02/10/2024 20 20 [facility] Summary Purpose Family History No Family History Records FoundNo Family History Records Found Advance Directives No Advanced Directives Records FoundNo Advanced Directives Records Found Additional Source Comments (unrecognized sect ion and content) No Status Records FoundNo Status Records Found INFORMATION SOURCE (unrecogn ized section and content) DATE CREATED AUTHOR 04/26/2022 [facility] DATE CREATED AUTHOR AUTHOR'S ORGANIZ ATION 09/16/2023 [facility] Care Teams (unrecognized sec tion and content) Lottery Manager Relationship Specialty Start Date End Date Montrell Serrano MD [address] [place] [phone] PCP - General Family Medicine 08/10/23 Georgia Davey NP [address] [place] [phone] Nurse Practitioner Family Medicine 07/20/22 Georgia Davey NP [address] [place] [phone] Referring Physician Family Medicine 05/04/23 Lottery Manager Relationship Specialty Start Date End Date Montrell Serrano MD [address] [place] [phone] PCP - General Family Medicine 08/10/23 Georgia Davey NP [address] [place] [phone] Nurse Practitioner Family Medicine 07/20/22 Georgia Davey NP [address] [place] [phone] Referring Physician Family Medicine 05/04/23 Lottery Manager Relationship Specialty Start Date End Date Montrell Serrano MD [address] [place] [phone] PCP - General Family Medicine 08/10/23 Georgia Davey NP [address] [place] [phone] Nurse Practitioner Family Medicine 07/20/22 Georgia Davey NP [address] [place] [phone] Referring Physician Family Medicine 05/04/23 Lottery Manager Relationship Specialty Start Date End Date Montrell Serrano MD [address] [place] [phone] PCP - General Family Medicine 08/10/23 Georgia Davey NP [address] [place] [phone] Nurse Practitioner Family Medicine 07/20/22 Georgia Davey NP [address] [place] [phone] Referring Physician Family Medicine 05/04/23 Lottery Manager Relationship Specialty Start Date End Date Montrell Serrano MD [address] [place] [phone] PCP - General Family Medicine 08/10/23 Georgia Davey NP [address] [place] [phone] Nurse Practitioner Family Medicine 07/20/22 Georgia Davey NP [address] [place] [phone] Referring Physician Family Medicine 05/04/23 Lottery Manager Relationship Specialty Start Date End Date Montrell Serrano MD [address] [place] [phone] PCP - General Family Medicine 05/04/23 08/09/23 Montrell Serrano MD [address] [place] [phone] PCP - General Family Medicine 08/10/23 Georgia Davey NP [address] [place] [phone] Nurse Practitioner Family Medicine 07/20/22 Georgia Davey NP [address] [place] [phone] Referring Physician Family Medicine 05/04/23 Lottery Manager Relationship Specialty Start Date End Date Montrell Serrano MD [address] [place] [phone] PCP - General Family Medicine 08/10/23 Georgia Davey NP [address] [place] [address] Nurse Practitioner Family Medicine 07/20/22 Georgia Davey NP [address] [place] [phone] Referring Physician Family Medicine 05/04/23 FOR RECORDS PERTAINING TO PATIENTS WHO ARE OR HAVE BEEN ENROLLED IN A CHEMICAL DEPENDENCY/SUBSTANCEABUSE PROGRAM, SOME INFORMATION MAY BE OMITTED. This clinical summary was aggregated from multiple sources. Caution should be exercised in using it in the provision of clinical care. This summary normalizes information from multiple sources, and as a consequence, information in this document may materially change the coding, format and clinical context of patient data. In addition, data may be omitted in some cases. CLINICAL DECISIONS SHOULD BE BASED ON THE PRIMARY CLINICAL RECORDS. [facility] provides no warranty or guarantee of the accuracy or completeness of information in this document.
[2023-09-18 09:06] LABS: Hemoglobin 15.9 g/dL (14.0-18.0)
[2023-09-18] MEDS: ALBUTEROL SULFATE 2.5 MG/3 ML VIAL NEB IH (09:45)
--- NOTE | 2023-09-18 10:02 | RT_ITS ---
[facility] Test Date: 2023-09-18 Pat Name: TAHIRA IVEY Department: Room: - Gender: Male Presales Engineer: Milton Cline RRT : 1980 Requested By: TANK MERCER Order Number: [id number] Reading MD: Neftaly Alba Interpretive Statements Pulmonary function testing was completed according to ATS criteria. Findings were considered accurate and reproducible. Both pre- and post-bronchodilator values utilized for spirometry. Spirometry (based on pre-bronchodilator values): -FEV1/FVC: Low normal @ 71% -FEV1: Normal @ 84% -FVC: Normal @ 94% -There is no significant bronchodilator response. Lung volumes by plethysmography (based on pre-bronchodilator values): -RV: Normal @ 108% -TLC: Normal @ 100% Diffusion capacity: -DLCO: Low normal @ 80% when corrected for Hb 15.9g/dL Flow-volume loop: -Mild obstructive pattern Impressions: -Spirometry trends towards a mild obstruction pattern. There is no bronchodilator response. Lung volumes are normal. Low normal diffusion capacity. Overall study trends towards a mild COPD/emphysema pattern vs. asthma with loss of a bronchodilator response. Clinical correlation required. Electronically Signed On 09-23-2023 7:07:11 EST by Neftaly Alba
--- NOTE | 2023-09-18 10:15 | XR_ITS ---
The [address] [address] Patient Name: TAHIRA IVEY MRN: [id number] date: 1980 Sex: M Assigned Patient Location: CARD Current Patient Location: CARD Accession/Order Number: [id number] Exam Date: 09/18/2023 10:17 Report Date: 09/18/2023 10:48 At the request of: TANK MERCER Procedure: XR chest 2V EXAM: XR chest 2V HISTORY: Dyspnea R06.00, Wheezing R06.2 COMPARISON: None. TECHNIQUE: PA and lateral views of the chest. FINDINGS: The cardiomediastinal silhouette is normal. No focal consolidation is identified. There is no pneumothorax. No pleural effusion is noted. The osseous structures are intact. XR/XR chest 2V IMPRESSION: No acute cardiopulmonary process. Electronically authenticated by: SELINA MCINTOSH Date: 09/18/2023 10:48
== END 2023-09-18 08:51 | disposition home or self-care (01) ==
LOC: CARD 08:51
PROVIDERS: PCP Nurse Practitioner; Visit Provider Nurse Practitioner
DX: R06.00 Dyspnea, unspecified (principal); R06.2 Wheezing
CPT/HCPCS: 36415; 71046; 85018; 94060; 94726; 94729

== ENCOUNTER 2024-05-18 07:23 | Outpatient (OUT) | payer OTHER, SELFPAY ==
--- NOTE | 2024-05-18 | MR_ITS ---
The [address] [address] Patient Name: TAHIRA IVEY MRN: [id number] date: 1980 Sex: M Assigned Patient Location: MRI Current Patient Location: MRI Accession/Order Number: [id number] Exam Date: 05/18/2024 08:00 Report Date: 05/18/2024 14:20 At the request of: NADIA DUBOIS Procedure: MR head/brain wo/w con EXAM: MR head/brain wo/w con HISTORY: R27.0 COMPARISON: MRI brain 12/20/2020. TECHNIQUE: Multisequence MRI brain was performed with and without intravenous contrast. FINDINGS: There is no restricted diffusion to suggest acute infarct. There is no midline shift, mass effect, or abnormal extraaxial fluid collections. There are no abnormal parenchymal or leptomeningeal enhancement. The cortical sulci and ventricular system are within normal limits. The major intracranial flow voids are visualized. The cerebellar tonsils are normal in position. The orbits demonstrate no suspicious enhancement or any focal lesions. The paranasal sinuses show no air-fluid level. The mastoid air cells are clear. The calvarium and extracranial soft tissues are unremarkable. MR/MR head/brain wo/w con IMPRESSION: Unremarkable brain MRI performed without and with contrast. Electronically authenticated by: LUIZ MENDOZA Date: 05/18/2024 14:20
--- OUTSIDE RECORDS SUMMARY | 2024-05-18 07:25 | XMS_ITS | CCD ---
Author Organization [facility] Care Team Providers Care Paper Products Inspector Name Role Phone AICHHOLZ, INTEGRATION SOFTWARE ENGINEER [place] Admitting Unavailable AICHHOLZ, INTEGRATION SOFTWARE ENGINEER [place] Attending Unavailable AICHHOLZ, INTEGRATION SOFTWARE ENGINEER [place] Primary Care Unavailable AICHHOLZ, INTEGRATION SOFTWARE ENGINEER [place] Consulting Unavailable AICHHOLZ, INTEGRATION SOFTWARE ENGINEER [place] Admitting Unavailable AICHHOLZ, INTEGRATION SOFTWARE ENGINEER [place] Attending Unavailable AICHHOLZ, INTEGRATION SOFTWARE ENGINEER [place] Primary Care Unavailable AICHHOLZ, INTEGRATION SOFTWARE ENGINEER [place] Consulting Unavailable AICHHOLZ, INTEGRATION SOFTWARE ENGINEER [place] Admitting Unavailable AICHHOLZ, INTEGRATION SOFTWARE ENGINEER [place] Attending Unavailable AICHHOLZ, INTEGRATION SOFTWARE ENGINEER [place] Primary Care Unavailable DR LISSETH SANTOS V Consulting Unavailable AICHHOLZ, INTEGRATION SOFTWARE ENGINEER [place] Consulting Unavailable AICHHOLZ, INTEGRATION SOFTWARE ENGINEER [place] Admitting Unavailable AICHHOLZ, INTEGRATION SOFTWARE ENGINEER [place] Attending Unavailable AICHHOLZ, INTEGRATION SOFTWARE ENGINEER [place] Primary Care Unavailable Aichholz TIERCE FILLER, [place] Unavailable Aichholz TIERCE FILLER, [place] Unavailable Zach MEI, Montrell Primary Care Provider Zach MEI, Montrell Primary Care Provider Aichholsarah TIERCE FILLER, [place] Unavailable PEGGY NOVA Attending Unavailable NORAH HANCOCK Attending [...] WILSON Attending Unavailable PEGGY NOVA Referring Unavailable LINCOLN, MELVIN Attending Unavailable NOVA, PEGGY J Referring Unavailable NOVA, PEGGY J Attending Unavailable TATTERSSHIRA ROCHA Attending Unavailable NOVA, PEGGY J Referring Unavailable AICHHOLGEORGIA Smith Attending Unavailable BRNIKKI SUAZO Attending Unavailable JR CROW., MARITZA Benton Referring Unavaila ble HANCOCKNORAH Attending Unavailable STEPJR JANEEN., MARITZA Benton Referring Unavaila ble BLACKSTONPASQUALE Attending Unavailable NOVA, PEGGY J Referring Unavailable LINCOLN, MELVIN Attending Unavailable NOVA, PEGGY J Referring Unavailable LINCOLN, MELVIN Attending Unavailable NOVA, PEGGY J Referring Unavailable LINCOLN, MELVIN Attending Unavailable NOVA, PEGGY J Referring Unavailable LINCOLN, MELVIN Attending Unavailable NOVA, PEGGY J Referring Unavailable LINCOLN, MELVIN Attending Unavailable NOVA, PEGGY J Referring Unavailable BLACKSTON, PASQUALE T Attending Unavailable NOVA, PEGGY J Referring Unavailable LINCOLN, MELVIN Attending Unavailable NOVA, PEGGY J Referring Unavailable NOVA, PEGGY J Attending Unavailable TATTERSSHIRA ROCHA Attending Unavailable NOVA, PEGGY J Referring Unavailable AICHHOLGEORGIA Smith Attending Unavailable LINCOLN, MELVIN Attending Unavailable NOVA, PEGGY J Referring Unavailable BLACKSTON, PASQUALE T Attending Unavailable NOVA, PEGGY J Referring Unavailable LINCOLN, MELVIN Attending Unavailable NOVA, PEGGY J Referring Unavailable LINCOLN, MELVIN Attending Unavailable STEPJR JANEEN., MARITZA Benton Referring Unavaila ble SHIRA MAZA Attending Unavailable STEPJANEEN, ., MARITZA Benton Referring Unavaila ble LINCOLN, MELVIN Attending Unavailable JR CROW., MARITZA Benton Referring Unavaila ble SHIRA MAZA Attending Unavailable CROW JR., MARITZA Benton Referring Unavaila ble STEPJANEEN, JR., MARITZA Benton Attending Unavaila ble NOVA, PEGGY J Attending Unavailable LINCOLN, MELVIN Attending Unavailable NOVA, PEGGY J Referring Unavailable NOVA, PEGGY J Referring Unavailable BRNIKKI SUAZO Attending Unavailable LINCOLN, MELVIN Attending Unavailable NOVA, PEGGY J Referring Unavailable AICHHOLGEORGIA Smith Attending Unavailable AICHHOLGEORGIA Smith Attending Unavailable NADIA SWIFT Attending Unavailable AICHHOLSarah [place] Referring Unavailable Allergies Allergy Classification Reported Allergen(s) Allergy Type Date of Onset Reaction(s) Facility (2 sources) Morphine Drug Allergy 10-28-2016 [facility] Repository (2 sources) Penicillin Drug Allergy 10-28-2016 [facility] Repository (15 sources) Morphine Drug Allergy 09-16-2018 [facility] Healthcare (7 sources) Penicillins Drug Allergy 09-02-2023 Rash [facility] Healthcare Medications Current Medications Medication Drug Class(es) Dates Sig (Normalized) Sig (Original) ARIPiprazole 10 mg oral tablet (17 sources) Atypical Antipsychotic Start: 04-17-2024 take 1 tablet by mouth once daily ARIPiprazole (Abilify) 10 MG tablet Take 10 mg by mouth Daily 04/17/2024 Active Start: 11-17-2023 End: 04-19-2024 take 1 tablet by mouth once daily ARIPiprazole (Abilify) 15 MG tablet Take 15 mg by mouth Daily 11/17/2023 04/19/2024 Discontinued (Therapy completed) take 1 tablet by laisha th in the morning ARIPiprazole (Abilify) 30 MG tablet Take 1 tablet by mouth in the morning. 0 Active chlorhexidine gluconate 1.2 mg/ml mouthwash (3 sources) Start: 12-04-2023 End: 04-19-2024 take 15 mL by mouth twice daily chlorhexidine (Peridex) 0.12 % solution SWISH AND SPIT 15 MLS BY MOUTH TWICE A DAY - START 24 HOURS AFTER SURGERY 12/04/2023 04/19/2024 Discontinued (Therapy completed) deutetrabenazine 9 mg oral tablet (15 sources) End: 05-05-2024 deutetrabenazine (Austedo) 9 MG tablet 24mg and 12mg 05/05/2024 Discontinued (Therapy completed) deutetrabenazine (Austedo) 9 MG tablet 2 tablets 0 Active Deutetrabenazine ER (Austedo XR) 12 MG tablet sustained-release 24 hour (2 sources) take 1 tablet by mouth once daily, then take 1 tablet by mouth every twenty-four hours Deutetrabenazine ER (Austedo XR) 12 MG tablet sustained-release 24 hour Take 12 mg by mouth Daily Active Deutetrabenazine ER (Austedo XR) 24 MG tablet sustained-release 24 hour (2 sources) take 1 tablet by mouth once daily, then take 1 tablet by mouth every twenty-four hours Deutetrabenazine ER (Austedo XR) 24 MG tablet sustained-release 24 hour Take 24 mg by mouth Daily Active 24 hr loratadine 10 mg / pseudoephedrine sulfate 240 mg extended release oral tablet (3 sources) alpha-Adrenergic Agonist End: 2023 take 10-240 mg by mouth every twenty-four hours loratadine-pseudoephed rine ER (Claritin-D 24-hour) 10-240 MG 24 hr tablet Take 1 tablet by mouth Daily Do not crush, chew, or split. 04/19/2024 Discontinued (Therapy completed) montelukast 10 mg oral tablet (3 sources) Leukotriene Receptor Antagonist End: 2023 take 1 tablet by mouth at bedtime montelukast (Singulair) 10 MG tablet Take 10 mg by mouth at bedtime 04/19/2024 Discontinued (Therapy completed) naproxen 500 mg oral tablet (1 source) Nonsteroidal Anti-inflammatory Drug take 1 tablet by mouth in the morning naproxen (Naprosyn) 500 MG tablet Take 1 tablet by mouth in the morning and 1 tablet in the evening. Take with meals. 0 Active Problems Active Problems Problem Classification Problem Date Documented Da te Episodic/Chronic Mood disorders (6 sources) Bipolar I disorder; Translations: [Bipolar disorder, unspecified] Onset: 09-08-2023 09-08-2023 Chronic Other hereditary and degenerative nervous system conditions (2 sources) Tardive dyskinesia; Translations: [Drug induced subacute dyskinesia] 05-05-2024 Episodic Other nervous system disorders (9 sources) Tremor; Translations: [Tremor, unspecified] Onset: 04-19-2024 04-19-2024 Episodic Other nervous system disorders (4 sources) Ataxia; Translations: [Ataxia, unspecified] 05-05-2024 Episodic Other non-traumatic joint disorders (20 sources) Derangement of right shoulder joint; Translations: [Other specific joint derangements of right shoulder, not elsewhere classified] Onset: 06-10-2023 06-10-2023 Chronic Past or Other Problems Problem Classification Problem Date Documented Date Episodic/Chronic Cardiac dysrhythmias (4 sources) Palpitations; Translations: [PALPITATIONS] Onset: 08-30-2021 Episodic Other lower respiratory disease (1 source) Dyspnea, unspecified; Translations: [DYSPNEA UNSPECIFIED] Onset: 08-22-2021 Episodic Other lower respiratory disease (6 sources) Dyspnea; Translations: [Dyspnea, unspecified] Onset: 09-08-2023 09-23-2023 Episodic Other lower respiratory disease (6 sources) Wheezing; Translations: [Wheezing] Onset: 09-08-2023 09-08-2023 Episodic Other nutritional; endocrine; and metabolic disorders (8 sources) Body mass index 25-29 - overweight; Translations: [Overweight] Onset: 09-08-2023 09-08-2023 Episodic Residual codes; unclassified (20 sources) History of arthroscopic procedure on shoulder; Translations: [Other specified postprocedural states] Onset: 08-17-2023 08-17-2023 Episodic Results Test Name Value Interpretation Reference Range Facil ity CBC AUTO DIFFon 04-23-2022 BASO # 0.1 103/ul Normal 0.0-0.1 [facility] Comment on above: Performed By: #### C BC #### [facility] [address] [place] [address] Dr. Lazara Mott Basophils/100 WBC (Bld) 1.4 % Normal 0.2-2.0 [facility] Comment on above: Performed By: #### C BC #### [facility] [address] [address] [address] Lazara Mott EO # 0.3 103/ul Normal 0.0-0.7 [facility] Comment on above: Performed By: #### C BC #### [facility] [address] [place] [address] Dr. Lazara Mott Eosinophils/100 WBC (Bld) 3.1 % Normal 0.9-7.0 [facility] Comment on above: Performed By: #### C BC #### [facility] [address] [place] [address] Dr. Lazara Mott Erythrocyte distribution width (RBC) [Ratio] 12.2 % Normal 11.0-15.0 [facility] Comment on above: Performed By: #### C BC #### [facility] [address] [place] [address] Dr. Lazara Mott Hematocrit (Bld) [Volume fraction] 45.0 % Normal 42.0-54.0 [facility] Comment on above: Performed By: #### C BC #### [facility] [address] [address] [address] Lazara Mott Hemoglobin (Bld) [Mass/Vol] 15.2 g/dL Normal 14.0-18.0 [facility] Comment on above: Performed By: #### C BC #### [facility] [address] [place] [address] Dr. Lazara Mott IG # 0.06 10e3/ul Critically high 0.00-0.03 [facility] Comment on above: Performed By: #### C BC #### [facility] [address] [place] [address] Dr. Lazara Mott IG % 0.7 % Critically high 0.0-0.[address] [facility] Comment on above: Performed By: #### C BC #### [facility] [address] [place] [address] Dr. Lazara Mott LYMPH # 2.5 103/ul Normal 1.2-3.8 [facility] Comment on above: Performed By: #### C BC #### [facility] [address] [place] [address] Dr. Lazara Mott Lymphocytes/100 WBC (Bld) 31.5 % Normal 20.5-60.0 [facility] Comment on above: Performed By: #### C BC #### [facility] [address] [place] [address] Dr. Lazara Mott MANUAL DIFF REQ NO Normal [facility] Comment on above: Performed By: #### C BC #### [facility] [address] [place] [address] Dr. Lazara Mott MCH (RBC) [Entitic mass] 30.6 pg Normal 25.9-34.0 [facility] Comment on above: Performed By: #### C BC #### [facility] [address] [place] [address] Dr. Lazara Mott MCHC (RBC) [Mass/Vol] 33.8 g/dL Normal 29.9-35.2 [facility] Comment on above: Performed By: #### C BC #### [facility] [address] [address] [address] Lazara Mott MCV (RBC) [Entitic vol] 90.7 fL Normal 80.0-94.0 [facility] Comment on above: Performed By: #### C BC #### [facility] [address] [address] [address] Lazara Mott MONO # 0.7 103/ul Normal 0.3-0.8 [facility] Comment on above: Performed By: #### C BC #### [facility] [address] [place] [address] Dr. Lazara Mott Monocytes/100 WBC (Bld) 8.7 % Normal 1.7-12.0 [facility] Comment on above: Performed By: #### C BC #### [facility] [address] [place] [address] Dr. Lazara Mott NEUT # 4.4 103/ul Normal 1.4-6.5 [facility] Comment on above: Performed By: #### C BC #### [facility] [address] [place] [address] Dr. Lazara Mott Neutrophils/100 WBC (Bld) 54.6 % Normal 43.0-75.0 [facility] Comment on above: Performed By: #### C BC #### [facility] [address] [place] [address] Dr. Lazara Mott Platelet mean volume (Bld) [Entitic vol] 9.9 fL Normal 9.5-13.5 [facility] Comment on above: Performed By: #### C BC #### [facility] [address] [place] [address] Dr. Lazara Mott PLT 297 103/ul Normal 150-450 [facility] Comment on above: Performed By: #### C BC #### [facility] [address] [place] [address] Dr. Lazara Mott RBC 4.96 106/ul Normal 4.70-6.10 [facility] Comment on above: Performed By: #### C BC #### [facility] [address] [place] [address] Dr. Lazara Mott WBC 8.0 103/ul Normal 4.0-11.0 [facility] Comment on above: Performed By: #### C BC #### [facility] [address] [address] [address] Lazara Mott LIPID PROFILEon 04-23-2022 CHOL-HDL RATIO NORM SEE BELOW Normal [facility] Comment on above: Result Comment: 3.3 - 4.4 LOW RISK 4.4 - 7.1 AVERAGE RISK 7.1 - 11.0 MODERATE RISK >11.0 HIGH RISK Performed By: #### T SH, LIPID, CMP #### [facility] [address] [address] [address] Lazara Mott Cholesterol [Mass/Vol] 145 mg/dL Normal <=200 [facility] Comment on above: Performed By: #### T SH, LIPID, CMP #### [facility] [address] [address] [address] Lazara Mott Cholesterol in HDL [Mass/Vol] 43 mg/dL Normal 40-60 [facility] Comment on above: Performed By: #### T SH, LIPID, CMP #### [facility] [address] [address] [address] Lazara Mott Cholesterol in LDL [Mass/Vol] 62.0 mg/dL Normal [facility] Comment on above: Performed By: #### T SH, LIPID, CMP #### [facility] [address] [address] [address] Lazara Mott Cholesterol.total/C holesterol in HDL [Mass ratio] 3.4 {ratio} Normal [facility] Comment on above: Performed By: #### T SH, LIPID, CMP #### [facility] [address] [address] [address] Lazara Mott HDL NORMAL > or = 60 mg/dl - LO W CARDIOVASCULAR RISK <40 mg/dl - HIGH CARDIOVASCULAR RISK Normal [facility] Comment on above: Performed By: #### T SH, LIPID, CMP #### [facility] [address] [address] [address] Lazara Mott LDL CALC NORMAL SEE BELOW Normal [facility] Comment on above: Result Comment: <100 mg/dl OPTIMAL 100 - 129 mg/dl NEAR OR ABOVE OPTIMAL 130 - 159 mg/dl BORDERLINE HIGH 160 - 189 mg/dl HIGH >190 mg/dl VERY HIGH Performed By: #### T SH, LIPID, CMP #### [facility] [address] [address] [address] Lazara Mott Triglyceride [Mass/Vol] 200 mg/dL Critically high <=150 [facility] Comment on above: Performed By: #### T SH, LIPID, CMP #### [facility] [address] [address] [address] Lazara Mott VLDL CALC 40.0 mg/dL Normal [facility] Comment on above: Performed By: #### T JOSEMANUEL, LIPID, CMP #### [facility] [address] [place] [address] Dr. Lazara Mott PROF 14(COMP METB)on 022 Albumin [Mass/Vol] 4.0 g/dL Normal 3.4-5.0 [facility] Comment on above: Performed By: #### T JOSEMANUEL, LIPID, CMP #### [facility] [address] [address] [address] Lazara Mott Albumin/Globulin [Mass ratio] 1.2 {ratio} Normal [facility] Comment on above: Performed By: #### T JOSEMANUEL, LIPID, CMP #### [facility] [address] [address] [address] Lazara Mott ALP [Catalytic activity/Vol] 80 U/L Normal 46-116 [facility] Comment on above: Performed By: #### T SH, LIPID, CMP #### [facility] [address] [address] [address] Lazara Mott ALT [Catalytic activity/Vol] 67 U/L Critically high 16-63 [facility] Comment on above: Performed By: #### T SH, LIPID, CMP #### [facility] [address] [address] [address] Lazara Mott Anion gap [Moles/Vol] 13.9 mmol/L Normal [facility] Comment on above: Performed By: #### T SH, LIPID, CMP #### [facility] [address] [address] [address] Lazara Mott AST [Catalytic activity/Vol] 26 U/L Normal 15-37 [facility] Comment on above: Performed By: #### T SH, LIPID, CMP #### [facility] [address] [address] [address] Lazara Mott Bilirubin [Mass/Vol] 0.6 mg/dL Normal 0.2-1.0 [facility] Comment on above: Performed By: #### T SH, LIPID, CMP #### [facility] [address] [place] [address] Dr. Lazara Mott Calcium [Mass/Vol] 8.9 mg/dL Normal 8.5-10.1 [facility] Comment on above: Performed By: #### T SH, LIPID, CMP #### [facility] [address] [place] [address] Dr. Lazara Mott Chloride [Moles/Vol] 102 mmol/L Normal 98-107 [facility] Comment on above: Performed By: #### T SH, LIPID, CMP #### [facility] [address] [place] [address] Dr. Lazara Mott CO2 [Moles/Vol] 24.9 mmol/L Normal 21.0-32.0 [facility] Comment on above: Performed By: #### T SH, LIPID, CMP #### [facility] [address] [place] [address] Dr. Lazara Mott Creatinine [Mass/Vol] 1.13 mg/dL Normal 0.70-1.30 [facility] Comment on above: Performed By: #### T SH, LIPID, CMP #### [facility] [address] [place] [address] Dr. Lazara Mott EGFR-AF [place] >60 Normal >=60 [facility] Comment on above: Performed By: #### T SH, LIPID, CMP #### [facility] [address] [place] [address] Dr. Lazara Mott EGFR-NON AF [place] >60 Normal >=60 [facility] Comment on above: Performed By: #### T SH, LIPID, CMP #### [facility] [address] [address] [address] Lazara Mott Globulin (S) [Mass/Vol] 3.3 g/dL Normal [facility] Comment on above: Performed By: #### T SH, LIPID, CMP #### [facility] [address] [place] [address] Dr. Lazara Mott Glucose [Mass/Vol] 87 mg/dL Normal 74-106 [facility] Comment on above: Performed By: #### T SH, LIPID, CMP #### [facility] [address] [place] [address] Dr. Lazara Mott Potassium [Moles/Vol] 3.8 mmol/L Normal 3.5-5.1 [facility] Comment on above: Performed By: #### T SH, LIPID, CMP #### [facility] [address] [place] [address] Dr. Lazara Mott Protein [Mass/Vol] 7.3 g/dL Normal 6.4-8.2 [facility] Comment on above: Performed By: #### T SH, LIPID, CMP #### [facility] [address] [place] [address] Dr. Lazara Mott Sodium [Moles/Vol] 137 mmol/L Normal 136-145 [facility] Comment on above: Performed By: #### T SH, LIPID, CMP #### [facility] [address] [place] [address] Dr. Lazara Mott Urea nitrogen [Mass/Vol] 9.0 mg/dL Normal 7.0-18.0 [facility] Comment on above: Performed By: #### T SH, LIPID, CMP #### [facility] [address] [place] [address] Dr. Lazara Mott Urea nitrogen/Creatinine [Mass ratio] 8.0 mg/mg Normal [facility] Comment on above: Performed By: #### T SH, LIPID, CMP #### [facility] [address] [place] [address] Dr. Lazara Mott TSHon 04-23-2022 TSH 1.148 uIU/mL Normal 0.358-3.740 [facility] Comment on above: Performed By: #### T SH, LIPID, CMP #### [facility] [address] [place] [address] Dr. Lazara Mott UA RANDOM W/MICROSCOPICon AMORPHOUS CRYSTALS MODERATE Normal [facility] Comment on above: Performed By: #### U AMIC #### [facility] [address] [address] [address] Lazara Mott BACTERIA NONE SEEN Normal NONE SEEN [facility] Comment on above: Performed By: #### U AMIC #### [facility] [address] [place] [address] Dr. Lazara Mott Bilirubin Ql (U) Negative Normal NEGATIVE [facility] Comment on above: Performed By: #### U AMIC #### [facility] [address] [place] [address] Dr. Lazara Mott CAST NONE SEEN Normal NONE SEEN [facility] Comment on above: Performed By: #### U AMIC #### [facility] [address] [place] [address] Dr. Lazara Mott Clarity (U) SL CLOUDY Abnormal CLEAR [facility] Comment on above: Performed By: #### U AMIC #### [facility] [address] [place] [address] Dr. Lazara Mott Color (U) LT. YELLOW Normal YELLOW [facility] Comment on above: Performed By: #### U AMIC #### [facility] [address] [place] [address] Dr. Lazara Mott Crystals LM Nom (Urine sed) SEEN Abnormal NONE SEEN [facility] Comment on above: Performed By: #### U AMIC #### [facility] [address] [place] [address] Dr. Lazara Mott Epithelial cells LM Ql (Urine sed) NONE SEEN Normal NONE SEEN /RARE [facility] Comment on above: Performed By: #### U AMIC #### [facility] [address] [place] [address] Dr. Lazara Mott Glucose Ql (U) Negative Normal NEGATIVE The [facility] Comment on above: Performed By: #### U AMIC #### [facility] [address] [address] [address] Lazara Mott Hemoglobin Ql (U) Negative Normal NEGATIVE [facility] Comment on above: Performed By: #### U AMIC #### [facility] [address] [address] [address] Lazara Mott Ketones Ql (U) Negative Normal NEGATIVE [facility] Comment on above: Performed By: #### U AMIC #### [facility] [address] [address] [address] Lazara Mott LEUKOCYTES Negative Normal NEGATIVE [facility] Comment on above: Performed By: #### U AMIC #### [facility] [address] [address] [address] Lazara Mott MUCOUS NONE SEEN Normal NONE SEEN [facility] Comment on above: Performed By: #### U AMIC #### [facility] [address] [address] [address] Lazara Mott Nitrite Ql (U) Negative Normal NEGATIVE [facility] Comment on above: Performed By: #### U AMIC #### [facility] [address] [address] [address] Lazara Mott pH (U) 8.5 [pH] Normal 5-9 [facility] Comment on above: Performed By: #### U AMIC #### [facility] [address] [address] [address] Lazara Mott RBC 0-2 Normal 0-2 [facility] Comment on above: Performed By: #### U AMIC #### [facility] [address] [address] [address] Lazara Mott SPEC GRAVITY 1.015 Normal 1.005-<=1.[address] [facility] Comment on above: Performed By: #### U AMIC #### [facility] [address] [place] [address] Dr. Lazara Mott UA PROTEIN Negative Normal NEGATIVE/ TRACE [facility] Comment on above: Performed By: #### U AMIC #### [facility] [address] [place] [address] Dr. Lazara Mott Urobilinogen Qn (U) 0.2 {Anum'U}/dL Normal 0.2 - 1. 0 [facility] Comment on above: Performed By: #### U AMIC #### [facility] [address] [place] [address] Dr. Lazara Mott WBC 0-2 Abnormal NONE SEEN [facility] Comment on above: Performed By: #### U AMIC #### [facility] [address] [place] [address] Dr. Lazara Mott CBC AUTO DIFFon 08-20-2021 BASO # 0.1 103/ul Normal 0.0-0.1 [facility] Comment on above: Performed By: #### C MP, TSH, LIPID, FT3 #### [facility] [address] [place] [address] Dr. Lazara Mott Basophils/100 WBC (Bld) 1.1 % Normal 0.2-2.0 [facility] Comment on above: Performed By: #### C MP, TSH, LIPID, FT3 #### [facility] [address] [place] [address] Dr. Lazara Mott EO # 0.2 103/ul Normal 0.0-0.7 [facility] Comment on above: Performed By: #### C MP, TSH, LIPID, FT3 #### [facility] [address] [place] [address] Dr. Lazara Mott Eosinophils/100 WBC (Bld) 2.3 % Normal 0.9-7.0 [facility] Comment on above: Performed By: #### C MP, TSH, LIPID, FT3 #### [facility] [address] [place] [address] Dr. Lazara Mtot Erythrocyte distribution width (RBC) [Ratio] 12.1 % Normal 11.0-15.0 [facility] Comment on above: Performed By: #### C MP, TSH, LIPID, FT3 #### [facility] [address] [place] [address] Dr. Lazara Mott Hematocrit (Bld) [Volume fraction] 42.4 % Normal 42.0-54.0 [facility] Comment on above: Performed By: #### C MP, TSH, LIPID, FT3 #### [facility] [address] [address] [address] Lazara Mott Hemoglobin (Bld) [Mass/Vol] 14.5 g/dL Normal 14.0-18.0 [facility] Comment on above: Performed By: #### C MP, TSH, LIPID, FT3 #### [facility] [address] [address] [address] Lazara Mott IG # 0.04 10e3/ul Critically high 0.00-0.03 [facility] Comment on above: Performed By: #### C MP, TSH, LIPID, FT3 #### [facility] [address] [place] [address] Dr. Lazara Mott IG % 0.5 % Normal 0.0-0.5 [facility] Comment on above: Performed By: #### C MP, TSH, LIPID, FT3 #### [facility] [address] [address] [address] Lazara Mott LYMPH # 2.5 103/ul Normal 1.2-3.8 [facility] Comment on above: Performed By: #### C MP, TSH, LIPID, FT3 #### [facility] [address] [place] [address] Dr. Lazara Mott Lymphocytes/100 WBC (Bld) 31.3 % Normal 20.5-60.0 [facility] Comment on above: Performed By: #### C MP, TSH, LIPID, FT3 #### [facility] [address] [address] [address] Lazara Mott MANUAL DIFF REQ NO Normal [facility] Comment on above: Performed By: #### C MP, TSH, LIPID, FT3 #### [facility] [address] [place] [address] Dr. Lazara Mott MCH (RBC) [Entitic mass] 30.7 pg Normal 25.9-34.0 [facility] Comment on above: Performed By: #### C MP, TSH, LIPID, FT3 #### [facility] [address] [place] [address] Dr. Lazara Mott MCHC (RBC) [Mass/Vol] 34.2 g/dL Normal 29.9-35.2 [facility] Comment on above: Performed By: #### C MP, TSH, LIPID, FT3 #### [facility] [address] [place] [address] Dr. Lazara Mott MCV (RBC) [Entitic vol] 89.6 fL Normal 80.0-94.0 [facility] Comment on above: Performed By: #### C MP, TSH, LIPID, FT3 #### [facility] [address] [place] [address] Dr. Lazara Mott MONO # 0.8 103/ul Normal 0.3-0.8 [facility] Comment on above: Performed By: #### C MP, TSH, LIPID, FT3 #### [facility] [address] [place] [address] Dr. Lazara Mott Monocytes/100 WBC (Bld) 10.2 % Normal 1.7-12.0 [facility] Comment on above: Performed By: #### C MP, TSH, LIPID, FT3 #### [facility] [address] [place] [address] Dr. Lazara Mott NEUT # 4.3 103/ul Normal 1.4-6.5 [facility] Comment on above: Performed By: #### C MP, TSH, LIPID, FT3 #### [facility] [address] [place] [address] Dr. Lazara Mott Neutrophils/100 WBC (Bld) 54.6 % Normal 43.0-75.0 [facility] Comment on above: Performed By: #### C MP, TSH, LIPID, FT3 #### [facility] [address] [place] [address] Dr. Lazara Mott Platelet mean volume (Bld) [Entitic vol] 9.3 fL Critically low 9.5-13.5 [facility] Comment on above: Performed By: #### C MP, TSH, LIPID, FT3 #### [facility] [address] [address] [address] Lazara Mott PLT 294 103/ul Normal 150-450 [facility] Comment on above: Performed By: #### C MP, TSH, LIPID, FT3 #### [facility] [address] [address] [address] Lazara Mott RBC 4.73 106/ul Normal 4.70-6.10 [facility] Comment on above: Performed By: #### C MP, TSH, LIPID, FT3 #### [facility] [address] [address] [address] Lazara Mott WBC 7.9 103/ul Normal 4.0-11.0 [facility] Comment on above: Performed By: #### C MP, TSH, LIPID, FT3 #### [facility] [address] [place] [address] Dr. Lazara Mott FREE T3on 08-20-2021 FREE T3 3.42 pg/mlL Normal 2.77-5.27 [facility] Comment on above: Performed By: #### C MP, TSH, LIPID, FT3 #### [facility] [address] [place] [address] Dr. Lazara Mott FREE T4on 08-20-2021 Free T4 [Mass/Vol] 0.95 ng/dL Normal 0.78-2.19 [facility] Comment on above: Performed By: #### C MP, TSH, LIPID, FT3 #### [facility] [address] [place] [address] Dr. Lazara Mott LIPID PROFILEon 08-20-2021 CHOL-HDL RATIO NORM SEE BELOW Normal [facility] Comment on above: Result Comment: 3.3 - 4.4 LOW RISK 4.4 - 7.1 AVERAGE RISK 7.1 - 11.0 MODERATE RISK >11.0 HIGH RISK Performed By: #### C MP, TSH, LIPID, FT3 #### [facility] [address] [place] [address] Dr. Lazara Mott Cholesterol [Mass/Vol] 159 mg/dL Normal <=200 [facility] Comment on above: Performed By: #### C MP, TSH, LIPID, FT3 #### [facility] [address] [address] [address] Lazara Mott Cholesterol in HDL [Mass/Vol] 41 mg/dL Normal [facility] Comment on above: Performed By: #### C MP, TSH, LIPID, FT3 #### [facility] [address] [address] [address] Lazara Mott Cholesterol in LDL [Mass/Vol] 94.0 mg/dL Normal [facility] Comment on above: Performed By: #### C MP, TSH, LIPID, FT3 #### [facility] [address] [address] [address] Lazara Mott Cholesterol.total/C holesterol in HDL [Mass ratio] 3.9 {ratio} Normal [facility] Comment on above: Performed By: #### C MP, TSH, LIPID, FT3 #### [facility] [address] [address] [address] Lazara Mott HDL NORMAL > or = 60 mg/dl - LO W CARDIOVASCULAR RISK <40 mg/dl - HIGH CARDIOVASCULAR RISK Normal [facility] Comment on above: Performed By: #### C MP, TSH, LIPID, FT3 #### [facility] [address] [address] [address] Lazara Mott LDL CALC NORMAL SEE BELOW Normal [facility] Comment on above: Result Comment: <100 mg/dl OPTIMAL 100 - 129 mg/dl NEAR OR ABOVE OPTIMAL 130 - 159 mg/dl BORDERLINE HIGH 160 - 189 mg/dl HIGH >190 mg/dl VERY HIGH Performed By: #### C MP, TSH, LIPID, FT3 #### [facility] [address] [address] [address] Lazara Mott Triglyceride [Mass/Vol] 120 mg/dL Normal <=150 [facility] Comment on above: Performed By: #### C MP, TSH, LIPID, FT3 #### [facility] [address] [address] [address] Lazara Mott VLDL CALC 24.0 mg/dL Normal [facility] Comment on above: Performed By: #### C MP, TSH, LIPID, FT3 #### [facility] [address] [place] [address] Dr. Lazara Mott PROF 14(COMP METB)on 022 Albumin [Mass/Vol] 4.1 g/dL Normal 3.5-5.0 [facility] Comment on above: Performed By: #### C MP, TSH, LIPID, FT3 #### [facility] [address] [place] [address] Dr. Lazara Mott Albumin/Globulin [Mass ratio] 1.2 {ratio} Normal [facility] Comment on above: Performed By: #### C MP, TSH, LIPID, FT3 #### [facility] [address] [place] [address] Dr. Lazara Mott ALP [Catalytic activity/Vol] 79 U/L Normal 38-126 [facility] Comment on above: Performed By: #### C MP, TSH, LIPID, FT3 #### [facility] [address] [place] [address] Dr. Lazara Mott ALT [Catalytic activity/Vol] 76 U/L Critically high 21-72 [facility] Comment on above: Performed By: #### C MP, TSH, LIPID, FT3 #### [facility] [address] [place] [address] Dr. Lazara Mott Anion gap [Moles/Vol] 10.6 mmol/L Normal [facility] Comment on above: Performed By: #### C MP, TSH, LIPID, FT3 #### [facility] [address] [place] [address] Dr. Lazara Mott AST [Catalytic activity/Vol] 21 U/L Normal 17-59 [facility] Comment on above: Performed By: #### C MP, TSH, LIPID, FT3 #### [facility] [address] [place] [address] Dr. Lazara Mott Bilirubin [Mass/Vol] 0.4 mg/dL Normal 0.2-1.3 [facility] Comment on above: Performed By: #### C MP, TSH, LIPID, FT3 #### [facility] [address] [place] [address] Dr. Lazara Mott Calcium [Mass/Vol] 9.0 mg/dL Normal 8.4-10.2 [facility] Comment on above: Performed By: #### C MP, TSH, LIPID, FT3 #### [facility] [address] [place] [address] Dr. Lazara Mott Chloride [Moles/Vol] 104 mmol/L Normal 98-107 [facility] Comment on above: Performed By: #### C MP, TSH, LIPID, FT3 #### [facility] [address] [place] [address] Dr. Lazara Mott CO2 [Moles/Vol] 27.1 mmol/L Normal 22.0-30.0 [facility] Comment on above: Performed By: #### C MP, TSH, LIPID, FT3 #### [facility] [address] [place] [address] Dr. Lazara Mott Creatinine [Mass/Vol] 1.13 mg/dL Normal 0.66-1.25 [facility] Comment on above: Performed By: #### C MP, TSH, LIPID, FT3 #### [facility] [address] [place] [address] Dr. Lazara Mott EGFR-AF [place] >60 Normal >=60 [facility] Comment on above: Performed By: #### C MP, TSH, LIPID, FT3 #### [facility] [address] [place] [address] Dr. Lazara Mott EGFR-NON AF [place] >60 Normal >=60 [facility] Comment on above: Performed By: #### C MP, TSH, LIPID, FT3 #### [facility] [address] [place] [address] Dr. Lazara Mott Globulin (S) [Mass/Vol] 3.3 g/dL Normal [facility] Comment on above: Performed By: #### C MP, TSH, LIPID, FT3 #### [facility] [address] [place] [address] Dr. Lazara Mott Glucose [Mass/Vol] 95 mg/dL Normal 74-106 [facility] Comment on above: Performed By: #### C MP, TSH, LIPID, FT3 #### [facility] [address] [place] [address] Dr. Lazara Mott Potassium [Moles/Vol] 3.7 mmol/L Normal 3.4-5.0 [facility] Comment on above: Performed By: #### C MP, TSH, LIPID, FT3 #### [facility] [address] [place] [address] Dr. Lazara Mott Protein [Mass/Vol] 7.4 g/dL Normal 6.1-8.2 [facility] Comment on above: Performed By: #### C MP, TSH, LIPID, FT3 #### [facility] [address] [place] [address] Dr. Lazara Mott Sodium [Moles/Vol] 138 mmol/L Normal 137-145 [facility] Comment on above: Performed By: #### C MP, TSH, LIPID, FT3 #### [facility] [address] [place] [address] Dr. Lazara Mott Urea nitrogen [Mass/Vol] 13.0 mg/dL Normal 9.0-20.0 [facility] Comment on above: Performed By: #### C MP, TSH, LIPID, FT3 #### [facility] [address] [place] [address] Dr. Lazara Mott Urea nitrogen/Creatinine [Mass ratio] 11.5 mg/mg Normal [facility] Comment on above: Performed By: #### C MP, TSH, LIPID, FT3 #### [facility] [address] [place] [address] Dr. Lazara Mott TSHon 08-20-2021 TSH 2.329 uIU/mL Normal 0.470-4.680 [facility] Comment on above: Performed By: #### C MP, TSH, LIPID, FT3 #### [facility] [address] [place] [address] Dr. Lazara Mott TSH RANGE SEE BELOW Normal [facility] Comment on above: Result Comment: <0.3 4 UIU/ml HYPERTHYROID 0.34-5.60 UIU/ml EUTHYROID >5.60 UIU/ml HYPOTHYROID Performed By: #### C MP, TSH, LIPID, FT3 #### [facility] [address] [place] [address] Dr. Lazara Mott XR CHEST 2 Von [...] Date: 2021-08-20 10:06 Normal [facility] Vital Signs Date Time Vital Sign Value Performing Clinician Faci lity 05-05-2024 07:51-0400 [facility] [employer] [facility] 05-05-2024 07:51-0400 Body mass index (BMI) [Ratio] 28.86 kg/m2 [facility] [employer] Work [facility]: [facility] 05-05-2024 07:51-0400 Body weight 96.53 [facility] [employer] [facility] 05-05-2024 07:51-0400 Diastolic blood pressure 82 mm[Hg] [facility] [employer] [facility] 05-05-2024 07:51-0400 Heart rate 84 /min [employer] Work Phone: [facility] 05-05-2024 07:51-0400 SaO2% (BldA) [Mass fraction] 97 % [facility] 05-05-2024 07:51-0400 Systolic blood pressure 134 mm[Hg] [facility] [employer] [facility] 04-19-2024 11:15-0400 Body height 182.9 cm Georgia Goodhholz [employer] Work Phone: [facility] 04-19-2024 11:15-0400 Body mass index (BMI) [Ratio] 28.48 kg/m2 Georgia Aichholz [employer] Work Phone: [facility] 04-19-2024 11:15-0400 Body temperature 98.71 [degF] Georgia Goodhholz [employer] Work Phone: [facility] 04-19-2024 11:15-0400 Body weight 95.25 kg Georgia Aichholz [employer] Work Phone: [facility] 04-19-2024 11:15-0400 Diastolic blood pressure 72 mm[Hg] Georgia Aichholz [employer] Work Phone: [facility] 04-19-2024 11:15-0400 Heart rate 86 /min Georgia Aichholz [employer] Work Phone: [facility] 04-19-2024 11:15-0400 Respiratory rate 18 /min Georgia Aichholz [employer] Work Phone: [facility] 04-19-2024 11:15-0400 SaO2% (BldA) [Mass fraction] 97 % Georgia Goodhholz [employer] Work Phone: [facility] 04-19-2024 11:15-0400 Systolic blood pressure 110 mm[Hg] Georgia Aichholz [employer] Work Phone: [facility] Healthcare Encounters Encounter Date Encounter Type Care Provider Facility Start: 05-05-2024 End: 05-05-2024 Bamboo flowsheet Nadia Swift DO Work Phone: [facility] Start: 05-05-2024 End: 05-05-2024 Bamboo flowsheet [facility] Start: 05-05-2024 End: 05-05-2024 Office outpatient new 45 minutes Nadia Swift DO Work Phone: [facility] Comment on above: Ataxia (Primary Dx); Tremor, unspecified; Tardive dyskinesia Start: 05-05-2024 End: 05-05-2024 ambulatory NADIA SWIFT Not Available Start: 04-19-2024 End: 04-19-2024 Bamboo flowsheet Georgia Aichholz [employer] Work Phone: [facility] Start: 04-19-2024 End: 04-19-2024 Bamboo flowsheet Georgia Aichholz [employer] Work Phone: [facility] Start: 04-19-2024 End: 04-19-2024 Office outpatient visit 25 minutes Georgia Aichholz [employer] Work Phone: [facility] Comment on above: Tremor, unspecified (Primary Dx); Overweight (BMI 25.0-29.9) Start: 04-19-2024 End: 04-19-2024 ambulatory GEORGIA AICHHOLZ Not Available Start: 12-10-2023 End: 12-10-2023 ambulatory GEORGIA AICHHOLZ Not Available Start: 11-12-2023 End: 11-12-2023 ambulatory MELVIN LINCOLN Not Available Start: 11-05-2023 End: 11-05-2023 ambulatory PEGGY NOVA Not Available Start: 11-02-2023 End: 11-02-2023 ambulatory MELVIN LINCOLN Not Available Start: 10-30-2023 End: 10-30-2023 ambulatory PEGGY NOVA Not Available Start: 10-28-2023 End: 10-28-2023 ambulatory MELVIN LINCOLN Not Available Start: 10-22-2023 End: 10-22-2023 ambulatory PASQUALE WILSON Not Available Start: 10-07-2023 End: 10-07-2023 ambulatory MELVIN LINCOLN Not Available Start: 10-07-2023 End: 10-07-2023 ambulatory GEORGIA AICHHOLZ Not Available Start: 10-05-2023 End: 10-05-2023 ambulatory SHIRA MAZA Not Available Start: 10-02-2023 End: 10-02-2023 ambulatory PEGGY NOVA Not Available Start: 10-01-2023 End: 10-01-2023 ambulatory MELVIN STARK Not Available Start: 09-28-2023 End: 09-28-2023 ambulatory PASQUALE Charley WILSON Not Available Start: 09-25-2023 End: 09-25-2023 ambulatory MELVIN STARK Not Available Start: 09-22-2023 End: 09-22-2023 ambulatory MELVIN LINCOLN Not Available Start: 09-17-2023 End: 09-17-2023 ambulatory MELVIN LINCOLN Not Available Start: 09-15-2023 End: 09-15-2023 ambulatory MELVIN LINCOLN Not Available Start: 09-11-2023 End: 09-11-2023 ambulatory MELVIN STARK Not Available Start: 09-09-2023 End: 09-09-2023 ambulatory PASQUALE Charley WILSON Not Available Start: 09-08-2023 End: 09-08-2023 ambulatory GEORGIA AUGUSTEJENAROSarah Not Available Start: 09-07-2023 End: 09-07-2023 ambulatory SHIRA MAZA Not Available Start: 09-04-2023 End: 09-04-2023 ambulatory MELVIN STARK Not Available Start: 09-02-2023 End: 09-02-2023 ambulatory Pasquale Wilson PT Work Phone: [facility] Comment on above: Internal derangement of right shoulder (Primary Dx); S/P arthroscopy of right shoulder Start: 08-31-2023 Bamboo flowsheet Pasquale radford PT Work Phone: [facility] Start: 08-31-2023 Bamboo flowsheet Pasquale Charley Fred kston PT Work Phone: [facility] Start: 08-31-2023 End: 08-31-2023 ambulatory Pasquale Wilson PT Work Phone: [facility] Comment on above: Internal derangement of right shoulder (Primary Dx); S/P arthroscopy of right shoulder Start: 08-28-2023 End: 08-28-2023 ambulatory Melvin Stark [employer] [facility] Comment on above: Internal derangement of right shoulder (Primary Dx); S/P arthroscopy of right shoulder Start: 08-26-2023 Bamboo flowsheet Melvin Stark PT A [facility] Start: 08-26-2023 Bamboo flowsheet Melvin Stark PT A [facility] Start: 08-26-2023 End: 08-26-2023 ambulatory Melvin Stark [employer] [facility] Comment on above: Internal derangement of right shoulder (Primary Dx); S/P arthroscopy of right shoulder Start: 08-24-2023 Bamboo flowsheet Shira Maza P TA [facility] Start: 08-24-2023 Bamboo flowsheet Shira Palaciosall P TA [facility] Start: 08-24-2023 End: 08-24-2023 ambulatory Shira Maza [employer] [facility] Comment on above: Internal derangement of right shoulder (Primary Dx); S/P arthroscopy of right shoulder Start: 08-20-2023 End: 08-20-2023 ambulatory NIKKI OLGUIN Not Available Start: 08-18-2023 End: 08-18-2023 ambulatory SHIRA STEPHENNIKKY Not Available Start: 08-14-2023 End: 08-16-2023 ambulatory NORAH HANCOCK Not Available Start: 08-14-2023 End: 08-14-2023 ambulatory PEGGY NOVA Not Available Start: 07-21-2023 End: 07-21-2023 ambulatory PEGGY NOVA Not Available Start: 07-08-2023 End: 07-08-2023 ambulatory MARITZA RAVI Not Available Start: 06-25-2023 End: 06-25-2023 ambulatory SHIRA PALACIOSAJ Not Available Start: 06-23-2023 End: 06-23-2023 ambulatory MELVNI LINCOLN Not Available Start: 06-18-2023 End: 06-18-2023 ambulatory SHIRA PALACIOSAJ Not Available Start: 06-16-2023 End: 06-16-2023 ambulatory MELVIN LINCOLN Not Available Start: 06-10-2023 End: 06-10-2023 ambulatory NORAH HANCOCK Not Available Start: 06-08-2023 End: 06-08-2023 ambulatory NIKKI OLGUIN Not Available Start: 03-16-2023 Chart abstracting Peggy BLOOD Work Phone: [facility] Start: 04-25-2022 Encounter for genera l adult medical examination without abnormal findings [facility]ADALYN DAVEY [facility] Start: 04-23-2022 End: 04-24-2022 ambulatory MADALYN DAVEY Facility:[facility]1 Start: 04-23-2022 End: 04-24-2022 Encounter for general adult medical examination without abnormal findings MADALYN DAVEY Facility:[facility] Start: 10-07-2021 ambulatory MADALYN DAVEY Facil ity:[facility]1 Start: 08-30-2021 End: 08-31-2021 ambulatory MADALYN DAVEY Facility:[facility] Start: 08-20-2021 End: 08-21-2021 ambulatory MADALYN DAVEY Facility:[facility] Plan of Treatment Date Care Activity Detail Author Start: 06-13-2024 End: 06-13-2024 Patient encounter procedure 06/13/2024 9:00 AM EST Office Visit [facility] [address] [place] [address] Georgia Davey NP [address] [place] [address] [facility] Start: 06-02-2024 End: 06-02-2024 Patient encounter procedure 06/02/2024 8:40 AM EST Office Visit [facility] [address] [place] [phone] Chrissie Wilde NP [address] [place], [place] [id number] [facility] [address] Start: 05-05-2024 End: 05-05-2025 MR Brain WO and W contrast IV MR brain w and wo contrast routine Imaging Routine Ataxia Expected: 05/05/2024, Expires: 05/05/2025 [facility] Work Phone: Comment on above: Expected: 05/05/2024 , Expires: 05/05/2025 Start: 05-05-2024 End: 05-05-2024 Patient encounter procedure 05/05/2024 8:00 AM EDT Office Visit [facility] [place] [address] [place] [address] Nadia Swift [address] [place] [address] Tremor, unspecified [facility] [place] [facility] Comment on above: Tremor, unspecified Start: 04-19-2024 End: 04-19-2024 Patient encounter procedure 04/19/2024 11:00 AM EDT Office Visit [facility] [address] [place] [phone] Georgia Davey NP [address] [place] [address] Arrived [facility] Comment on above: Arrived Start: 09-11-2023 End: 09-11-2023 Patient encounter procedure 09/11/2023 10:45 AM EST Office Visit [facility] [address] [place] [address] Peggy Nova, PA [address] [place] [address] [facility] Start: 09-11-2023 End: 09-11-2023 ambulatory 09/11/2023 9:30 AM EST Treatment [facility] [address] [place] [address] Melvin Stark PTA [facility] Start: 09-09-2023 End: 09-09-2023 ambulatory 09/09/2023 11:00 AM EST Treatment [facility] [address] [place] [address] Pasquale Wilson, PT [address] [place] [address] [facility] Start: 09-08-2023 End: 09-08-2023 Patient encounter procedure 09/08/2023 9:00 AM EST Office Visit [facility] [address] [place] [address] Georgia Davey, TIERCE FILLER [address] [place] [address] [facility] Start: 09-07-2023 End: 09-07-2023 ambulatory [facility] Start: 09-07-2023 End: 09-07-2023 Patient encounter procedure 09/07/2023 10:00 AM EST Office Visit [facility] [address] [facility] [address] [place] [address] Peggy Nova PA [address] [place] [address] [facility] Start: 09-04-2023 End: 09-04-2023 ambulatory 09/04/2023 11:00 AM EST Treatment [facility] [address] [facility] [address] [place] [address] Melvin Stark PTA [facility] Start: 09-02-2023 End: 09-02-2023 ambulatory [facility] Start: 08-31-2023 End: 08-31-2023 ambulatory [facility] Comment on above: Arrived Start: 08-28-2023 End: 08-28-2023 ambulatory 08/28/2023 11:00 AM EST Treatment [facility] [address] [facility] [address] [place] [address] Melvin Stark PTA [facility] Start: 08-26-2023 End: 08-26-2023 ambulatory [facility] Comment on above: Internal derangement of right shoulder (Primary Dx); S/P arthroscopy of right shoulder Start: 08-24-2023 End: 08-24-2023 ambulatory 08/24/2023 10:00 AM EST Treatment [facility] [address] [place] [address] Shira Maza, DEEPA Arrived [facility] Comment on above: Arrived Start: 03-20-2023 Influenza vaccination Influenza Vacc ine (#1) [facility] Payers Date Payer Category Payer Private Health Insurance [employer] [id number] 2022 Unknown [employer] [id number] 2022-Present [phone] [address] [address] [place] [address] [id number]. [id number] 2022 Unknown [id number] 1982 Unknown [id number] 2.16.840.1.653744.3.579. 2.59 1982 Unknown [id number] 2.16840.1.028186.3.579. 2.593 1982 Unknown [id number] 2.16840.1.246106.3.579. 2.593 1982 Unknown [id number] 2.16840.1.314398.3.579. 2.59 1982 Unknown [id number] 2.16.840.1.290734.3.579. 2.1259 1982 Unknown [id number] 2.16840.1.845356.3.579. 2.1258 1982 Unknown [id number] 2.840.1.380325.3.579. 2.1258 1982 Unknown [id number] 2.840.1.258376.3.579. 2.1258 1982 Unknown [id number] 2.16.840.1.388473.3.579. 2.1258 1982 Unknown [id number] 2.840.1.999188.3.579. 2.1258 1982 Unknown [id number] 2.840.1.506880.3.579. 2.1258 1982 Unknown [id number] 2840.1.930654.3.579. 2.1258 1982 Unknown [id number] 2.840.1.970742.3.579. 2.1258 1982 Unknown [id number] 2840.1.448687.3.579. 2.1258 1982 Unknown [id number] 2840.1.950554.3.579. 2.1258 1982 Unknown [id number] 09.04.830.1.676596.3.579. 2.1258 1982 Unknown [id number] 2840.1.794669.3.579. 2.1258 1982 Unknown [id number] 840.1.439082.3.579. 2.1258 1982 Unknown [id number] 840.1.992535.3.579. 2.1258 1982 Unknown [id number] 2840.1.296587.3.579. 2.1258 1982 Unknown [id number] 2840.1.237788.3.579. 2.1258 1982 Unknown [id number] 2840.1.885781.3.579. 2.1258 1982 Unknown [id number] 2.16840.1.868821.3.579. 2.1258 1982 Unknown [id number] 2.16840.1.558075.3.579. 2.1258 1982 Unknown [id number] 2.16840.1.959257.3.579. 2.1258 1982 Unknown [id number] 2.840.1.773564.3.579. 2.1258 1982 Unknown [id number] 2.840.1.064637.3.579. 2.1258 1982 Unknown [id number] 2.840.1.544262.3.579. 2.1258 1982 Unknown [id number] 2.840.1.918818.3.579. 2.1258 1982 Unknown [id number] 20.1.524890.3.579. 2.1258 1982 Unknown [id number] 2.840.1.320105.3.579. 2.1258 1982 Unknown [id number] 2840.1.861349.3.579. 2.1258 1982 Unknown [id number] 2.840.1.973973.3.579. 2.1258 1982 Unknown [id number] 20.1.572023.3.579. 2.1258 1982 Unknown [id number] 2.840.1.980575.3.579. 2.1258 1982 Unknown [id number] 2.840.1.029635.3.579. 2.1258 1982 Unknown [id number] 2.840.1.131464.3.579. 2.1258 1982 Unknown [id number] 2.840.1.596544.3.579. 2.1258 1982 Unknown [id number] 2.16.840.1.188773.3.579. 2.9 1982 Unknown [id number] 2.16.840.1.500398.3.579. 2.1258 1982 Unknown [id number] 2.16.840.1.588520.3.579. 2.1258 1982 Unknown [id number] 2.16.840.1.470351.3.579. 2.1258 1982 Unknown [id number] 2.16.840.1.428917.3.579. 2.1258 1982 Unknown [id number] 2.16.840.1.576680.3.579. 2.1258 1982 Unknown [id number] 2.16.840.1.298422.3.579. 2.9 1982 Unknown [id number] 2.16.840.1.301282.3.579. 2.9 1959 Self-pay [id number] 1959 Unknown [id number] Social History Date Type Detail Facility Start: 03-16-2023 Tobacco smoking status MAIS Never sm oked tobacco [facility] Start: 08-07-2023 End: 05-05-2024 Alcohol intake Current drinker of alcohol (finding) [facility] Start: 05-27-2023 End: 09-07-2023 History of Social function [facility] Start: 05-27-2023 End: 09-07-2023 Alcohol Use Disorder Identification Test - Consumption [...] Comment 1-2 drinks, mo nthly or less. [facility] Start: 1980 Sex Assigned At Not on file [facility] Start: 03-16-2023 Alcohol intake Ex-drinker (finding) [facility] Start: 05-17-2023 End: 05-27-2023 Exposure to SARS-CoV-2 (event) Not sure [facility] Do you belong to any clubs or organizations such as cheondoism groups, unions, fraternal or athletic groups, or school groups? Patient declined [facility] Are you now , , , , never or living with a partner? [facility] Do you feel stress - tense, restless, nervous, or anxious, or unable to sleep at night because your mind is troubled all the time - these days [OSQ] Rather much [facility] (I/We) worried wheth er (my/our) food would run out before (I/we) got money to buy more. Never true [facility] In the past 12 month s, was there a time when you were not able to pay the mortgage or rent on time? No [facility] Clinical Notes 08-31-2023 to 05-05-2024 Nadia Swift DO - 05/05/2024 8:00 AM Buzz Davey NP - 04/19/2024 11:51 AM XENIA RODARTE - 04/19/2024 11:00 AM Buzz Davey NP - 04/19/2024 11:00 AM EDT Note Date & Type Note Facility 05-05-2024 History of Presen t illness Narrative Images from the original note were not included. Chief Complaint Patient presents with Tremors Subjective Shine Agustin, 43 y.o., male Patient is here with tremors. 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 He notes this is very noticeable at work along with at home. Patients tremors are in both hands. This started 5 months ago. Patient admits the left hand is worse then the right. Patient notices it with an increase of adrenaline. He notes this happens more with physical activity. Patient denies this affecting his driving. He states he doesn't notice it while sleeping, but once it starts it doesn't stop till he is asleep. He denies it being there right as he wakes up. He denies trying any medication. He sees a mental health doctor who thought it could have been from his Abilify, and was brought down from a 30mg dose to a 10mg. He denies testing. He states his balance is fine and denies any falls. He denies slowness of motion. He is independent with all ADL's he just struggle to eat anything with a spoon. He states his memory is good. He admits to sleeping at most 6 hours a night and struggles to fall asleep and stay asleep. Review of Systems Constitutional: Negative for appetite change, fatigue and fever. Respiratory: Negative for cough, shortness of breath and wheezing. Cardiovascular: Negative for chest pain, palpitations and leg swelling. Gastrointestinal: Negative for abdominal pain, constipation, diarrhea and nausea. Musculoskeletal: Negative for arthralgias, gait problem and myalgias. Neurological: Positive for tremors. Negative for dizziness, numbness and headaches. Past Medical History: Diagnosis Date Arthralgia Asymptomatic microscopic hematuria Bipolar 1 disorder ([facility]) 09/08/2023 Pt has a hx of bipolar one. Pt is on Benztropine, abilify and Celexa. Pt was seeing psych, however he could not afford it anymore. Pt states he has not had a manic episode in several years. Pt states he does not feel depressed at this time. Bursitis of shoulder, right Cyst of tendon sheath Pt states that for the last two weeks he has had a cyst on his R arm just below the R elbow. Pt states that it can be very painful. He states for work he has to lean against it. It can get very red and irritated. Improved today. Cyst gets bigger with extension. Dyspnea 09/08/2023 Family history of multiple sclerosis Lumbar back pain SARS-associated coronavirus exposure Past Surgical History: Procedure Laterality Date CHOLECYSTECTOMY CYST REMOVAL Bilateral breast CYST REMOVAL back of neck SHOULDER ARTHROSCOPY Right 07/31/2023 DR JANE VASECTOMY WISDOM TOOTH EXTRACTION Right 11/2023 right upper Family History Problem Relation Name Age of Onset Multiple sclerosis Father Diabetes Brother COPD Other mothers side Rheum arthritis Other mothers side Fibromyalgia Other mothers side Social History Tobacco Use Smoking status: Never Smokeless tobacco: Not on file Substance Use Topics Alcohol use: Yes Comment: 1-2 drinks, monthly or less. Allergies: Morphine and Penicillins Vitals: 05/05/24 0751 BP: 134/82 Pulse: 84 SpO2: 97% Body mass index is 28.86 kg/m . weight: 212 lb 12.8 oz Neurologic exam: Mental status: Awake, alert to person, place and time. Recent and remote memory are intact. Language is fluent without aphasia. Attention and concentration are normal. Fund of knowledge is appropriate for level of education. Cranial nerves: CN II: Visual acuity is normal. Visual peoples full to confrontation. CN III, IV, : pupils equal round and reactive to light. Extraocular movements intact. No ptosis present. CN V: Facial sensation is normal. CN VII: Full and symmetric facial movement. CN VIII: Hearing is normal to finger rub bilaterally: CN IX and X: Palate elevates symmetrically. CN XI: Shoulder shrug is normal bilaterally. CN XII: Tongue is midline without atrophy or fasciculation. Motor: RUE Strength deltoid, , biceps , triceps , wrist extensors , wrist flexor , finishing and shipping supervisor strength 5/5. LUE Strength deltoid , biceps , triceps , wrist extensors , wrist flexor , finishing and shipping supervisor strength 5/5. RLE Strength illopsoas, quadriceps, tibialis anterior, and gastrocnemius strength 5/5. LLE Strength illopsoas, quadriceps, tibialis anterior, and gastrocnemius strength 5/5. Normal tone x4 extremities. Bulk is normal. Bulk is normal. Sensory: Sensation is intact to light touch throughout Four extremities. Reflexes: RUE biceps reflex 2+ brachioradialis reflex 2+ . LUE biceps reflex 2+ brachioradialis reflex 2+ . RLE knee reflex 2+ . LLE knee reflex 2+ . Lovett's sign negative. Coordination: Abnormal bilaterally Gait: Normal Review and summary of old records: Patient states he gets his thyroid checked regularly and this has been normal. Assessment/Plan Diagnoses and all orders for this visit: Ataxia It is my impression that the patient has abnormal cryjau-ts-wken testing indicating ataxia. The patient is 43 years old and this appears to be progressive. The patient also has a family history of multiple sclerosis in his father. This is certainly concerning for intracranial pathology that could be causative for symptoms and could be debilitating if not correctly identified and treated. Plan: MRI of the brain with and without contrast Tremor, unspecified Tardive dyskinesia The patient also notes tremor in the bilateral upper extremities. This seems to be worsening over the last 6 months. This was originally thought to be due to the patient's Abilify. Abilify was decreased from 30 mg to 10 mg. This did not seem to fully resolve the problem. The patient is now on deutetrabenazine 36 mg p.o. daily. He stated this did help with the symptoms. However, it did not fully alleviate the symptoms. Patient states his thyroid has been checked by primary care and has been normal. Plan: Close follow up with mental health team Consideration could be given to alternative agents for bipolar/ mood stabilization such as lamotrigine if the symptoms persist as the Abilify may be overall causative. Pt has been fully educated on their diagnosis, treatment options, follow up plan, and return instructions documented in this encounter [facility] 04-19-2024 History of Presen t illness Narrative Associated Problem(s): Tremor, unspecified Will refer to Neuro Differentials: side effect psych meds, essential tremor, MS, parkinsons, brain lesion, spinal pathology Keep fu appt in late May as well Pt believes his hands has gotten worse over time with shaking, pt states his mental sriram doc had changed his medication doses to see if that was effecting his hands, but no changes with the shakiness after dosage adjustments. Pt states that the shakiness happens with transition of emotions (angry, excited, nervous, ect) Pt states his hands do not wake him when sleeping or shake when driving. Pt declines any burning, itchiness, redness, any other feeling with his hands other than shakiness. Images from the original note were not included. Shine Agustin is a 43 y.o. male presents with chief complaint of No chief complaint on file. HPI: Tremor The tremor affects the hands, arms, left arm, left hand, right arm and right hand. The onset of the tremor was gradual. Current severity of tremor is rated at severe. The tremor occurs intermittently. The tremor is alleviated by nothing.Associated symptoms do not include change in handwriting, difficulty balancing, difficulty starting movement, difficulty walking, drooling while sleeping, posture problems, rigidity, sleep disturbance, trouble swallowing or voice change. Additional narrative: Father hx of MS No family hx of parkinson's Mental Health has attempted adjusting psych meds, no help Left hand worse then right hand LHD SUBJECTIVE: MEDICATIONS: Current Outpatient Medications Medication Instructions ARIPiprazole (ABILIFY) 10 mg, Oral, Daily deutetrabenazine (Austedo) 9 MG tablet 24mg and 12mg ALLERGIES: Allergies Allergen Reactions Morphine Hives Severe itching Penicillins Rash REVIEW OF SYMPTOMS: Review of Systems Constitutional: Negative for activity change, appetite change and unexpected weight change. HENT: Negative for ear pain, nosebleeds, sneezing, trouble swallowing and voice change. Eyes: Negative for pain, discharge and visual disturbance. Respiratory: Negative for apnea, chest tightness and wheezing. Cardiovascular: Negative for leg swelling. Gastrointestinal: Negative for abdominal distention, blood in stool, constipation and diarrhea. Genitourinary: Negative for decreased urine volume, difficulty urinating, dysuria and hematuria. Skin: Negative for color change. Neurological: Positive for tremors. Negative for dizziness and seizures. Psychiatric/Behavioral: Negative for agitation, decreased concentration, hallucinations, self-injury and suicidal ideas. The patient is nervous/anxious. Depression Hematological: Negative for adenopathy. Does not bruise/bleed easily. Endocrine: Negative for cold intolerance, heat intolerance, polydipsia and polyuria. Allergic/Immunologic: Negative for environmental allergies and food allergies. PAST MEDICAL HISTORY Past Medical History: Diagnosis Date Arthralgia Asymptomatic microscopic hematuria Bipolar 1 disorder ([facility]) 09/08/2023 Pt has a hx of bipolar one. Pt is on Benztropine, abilify and Celexa. Pt was seeing psych, however he could not afford it anymore. Pt states he has not had a manic episode in several years. Pt states he does not feel depressed at this time. Bursitis of shoulder, right Cyst of tendon sheath Pt states that for the last two weeks he has had a cyst on his R arm just below the R elbow. Pt states that it can be very painful. He states for work he has to lean against it. It can get very red and irritated. Improved today. Cyst gets bigger with extension. Dyspnea 09/08/2023 Family history of multiple sclerosis Lumbar back pain SARS-associated coronavirus exposure Past Surgical History: Procedure Laterality Date CHOLECYSTECTOMY CYST REMOVAL Bilateral breast CYST REMOVAL back of neck SHOULDER ARTHROSCOPY Right 07/31/2023 DR JANE VASECTOMY WISDOM TOOTH EXTRACTION Right 11/2023 right upper family history includes COPD in an other family member; Diabetes in his brother; Fibromyalgia in an other family member; Multiple sclerosis in his father; Rheum arthritis in an other family member. OBJECTIVE: Visit Vitals BP 110/72 (BP Location: Left arm, Patient Position: Sitting, BP Cuff Size: Adult long) Pulse 86 Temp 98.7 F (Temporal) Resp 18 Ht 6' Wt 210 lb SpO2 97% BMI 28.48 kg/m Smoking Status Never BSA 2.2 m Physical Exam Vitals and nursing note reviewed. Constitutional: Appearance: Normal appearance. HENT: Head: Normocephalic. Right Ear: Tympanic membrane, ear canal and external ear normal. Left Ear: Tympanic membrane, ear canal and external ear normal. Nose: Nose normal. No congestion or rhinorrhea. Mouth/Throat: Mouth: Mucous membranes are moist. Pharynx: Oropharynx is clear. No oropharyngeal exudate or posterior oropharyngeal erythema. Eyes: Extraocular Movements: Extraocular movements intact. Conjunctiva/sclera: Conjunctivae normal. Pupils: Pupils are equal, round, and reactive to light. Neck: Vascular: No carotid bruit. Cardiovascular: Rate and Rhythm: Normal rate and regular rhythm. Pulses: Normal pulses. Heart sounds: Normal heart sounds. Pulmonary: Effort: Pulmonary effort is normal. Breath sounds: Normal breath sounds. Abdominal: General: Bowel sounds are normal. Palpations: Abdomen is soft. Musculoskeletal: General: Normal range of motion. Cervical back: Neck supple. Right lower leg: No edema. Left lower leg: No edema. Lymphadenopathy: Cervical: No cervical adenopathy. Skin: General: Skin is warm and dry. Capillary Refill: Capillary refill takes 2 to 3 seconds. Neurological: General: No focal deficit present. Mental Status: He is alert. Cranial Nerves: No cranial nerve deficit. Gait: Gait normal. Deep Tendon Reflexes: Reflexes normal. Comments: Tremors noted bilat hands/arms Psychiatric: Mood and Affect: Mood normal. Behavior: Behavior normal. Thought Content: Thought content normal. Judgment: Judgment normal. ASSESSMENT AND PLAN: No follow-ups on file. 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 Good compliance with use of sling Functional Limitations: 28/80 points, 65% impairment Senior Living Goals: AA/AROM R shoulder to 160 flexion [...] back to the number below. 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 Good compliance with use of sling Functional Limitations: 28/80 points, 65% impairment Business Reporter Goals: AA/AROM R shoulder to 160 flexion [...] back to the number below. Physician Signature: ___ Date: documented in this encounter [facility] Evaluation note Diagnosis Internal derangement of right shoulder- Primary S/P arthroscopy of right shoulder [facility] Diagnosis Internal derangement of right shoulder- Primary S/P arthroscopy of right shoulder [facility] Diagnosis Internal derangement of right shoulder- Primary S/P arthroscopy of right shoulder documented in this encounter [facility]* Diagnosis Tremor, unspecified- Primary Overweight (BMI 25.0-29.9) Overweight documented in this encounter [facility]* Diagnosis Dyspnea, unspecified type- Primary Wheezing Bipolar 1 disorder (CMS/HCC) Overweight (BMI 25.0-29.9) Overweight Dyspnea, unspecified type- Primary Overweight (BMI 25.0-29.9) Overweight Bipolar 1 disorder (CMS/HCC) Dyspnea, unspecified type- Primary Overweight (BMI 25.0-29.9) Overweight Tremor, unspecified- Primary Overweight (BMI 25.0-29.9) Overweight Ataxia- Primary Lack of coordination Tremor, unspecified Tardive dyskinesia Subacute dyskinesia due to drugs documented in this encounter [facility] (n[facility] Consultation (Routine) - Pending Review Specialty Diagnoses / Procedures Referred By Contchintan t Referred To Contact Neurology Diagnoses Tremor, unspecified Procedures [place] OFFICE/OUTPATIENT NEW HIGH MDM 60 MINUTES Georgia Davey NP [address] [place] [address] Estefania Sherman, JA [address] [place] [address] Referral ID Status Reason Start Date Expiration Date Visits Requested Visits Authorized [id number] Pending Review Specialty Services Required 04/19/2024 10/16/2024 1 1 [facility] for visit Narrative* Consultation (Routine) - Authorized Specialty Diagnoses / Procedures Referred By Contac t Referred To Contact Physical Therapy Diagnoses S/P arthroscopy of right shoulder Procedures [place] OFFICE/OUTPATIENT NEW HIGH MDM 60 MINUTES Peggy Nova, PA [address] [place] [address] Norah Hancock, PT [address] [place] [address] Referral ID Status Reason Start Date Expiration Date Visits Requested Visits Authorized [id number] Authorized Consult and Treat 08/14/2023 02/10/2024 20 20 [facility] Summary Purpose Family History No Family History Records FoundNo Family History Records Found Advance Directives No Advanced Directives Records FoundNo Advanced Directives Records Found Additional Source Comments (unrecognized sect ion and content) No Status Records FoundNo Status Records Found INFORMATION SOURCE (unrecogn ized section and content) DATE CREATED AUTHOR 04/26/2022 [facility] DATE CREATED AUTHOR AUTHOR'S ORGANIZ ATION 05/07/2024 [facility] EPIC Care Teams (unrecognized sec tion and content) Paper Products Inspector Relationship Specialty Start Date End Date Montrell Serrano MD [address] [place] [phone] PCP - General Family Medicine 08/10/23 Georgia Davey NP [address] [place] [address] Nurse Practitioner Family Medicine 07/20/22 Georgia Davey NP [address] [place] [address] Referring Physician Family Medicine 05/04/23 Paper Products Inspector Relationship Specialty Start Date End Date Montrell Serrano MD [address] [place] [address] PCP - General Family Medicine 08/10/23 Georgia Davey NP [address] [place] [address] Nurse Practitioner Family Medicine 07/20/22 Georgia Davey NP [address] [place] [address] Referring Physician Family Medicine 05/04/23 Paper Products Inspector Relationship Specialty Start Date End Date Montrell Serrano MD [address] [place] [address] PCP - General Family Medicine 08/10/23 Georgia Davey NP [address] [place] [address] Nurse Practitioner Family Medicine 07/20/22 Georgia Davey NP [address] [place] [address] Referring Physician Family Medicine 05/04/23 Paper Products Inspector Relationship Specialty Start Date End Date Montrell Serrano MD [address] [place] [address] PCP - General Family Medicine 08/10/23 Georgia Davey NP [address] [place] [address] Nurse Practitioner Family Medicine 07/20/22 Georgia Davey NP [address] [place] [address] Referring Physician Family Medicine 05/04/23 Paper Products Inspector Relationship Specialty Start Date End Date Montrell Serrano MD [address] [place] [address] PCP - General Family Medicine 08/10/23 Georgia Davey NP [address] [place] [address] Nurse Practitioner Family Medicine 07/20/22 Georgia Davey NP [address] [place] [address] Referring Physician Family Medicine 05/04/23 Paper Products Inspector Relationship Specialty Start Date End Date Montrell Serrano MD [address] [place] [address] PCP - General Family Medicine 05/04/23 08/09/23 Montrell Serrano MD [address] [place] [address] PCP - General Family Medicine 08/10/23 Georgia Davey NP [address] [place] [address] Nurse Practitioner Family Medicine 07/20/22 Georgia Davey NP [address] [place] [address] Referring Physician Family Medicine 05/04/23 Paper Products Inspector Relationship Specialty Start Date End Date Montrell Serrano MD [address] [place] [address] PCP - General Family Medicine 08/10/23 Georgia Davey NP [address] [place] [address] Nurse Practitioner Family Medicine 07/20/22 Georgia Davey NP [address] [place] [address] Referring Physician Family Medicine 05/04/23 Paper Products Inspector Relationship Specialty Start Date End Date Montrell Serrano MD [address] [place] [address] PCP - General Family Medicine 08/10/23 Georgia Davey NP [address] [place] [phone] Nurse Practitioner Family Medicine 07/20/22 Georgia Davey NP [address] [place] [address] Referring Physician Family Medicine 05/04/23 Paper Products Inspector Relationship Specialty Start Date End Date Montrell Serrano MD [address] [place] [address] PCP - General Family Medicine 08/10/23 Georgia Davey NP [address] [place] [address] Nurse Practitioner Family Medicine 07/20/22 Georgia Davey NP [address] [place] [phone] Referring Physician Family Medicine 05/04/23 Paper Products Inspector Relationship Specialty Start Date End Date Montrell Serrano MD [address] [place] [address] PCP - General Family Medicine 08/10/23 Georgia Davey NP [address] [place] [phone] Nurse Practitioner Family Medicine 07/20/22 Georgia Davey NP [address] [place] [phone] Referring Physician Family Medicine 05/04/23 Paper Products Inspector Relationship Specialty Start Date End Date Montrell Serrano MD [address] [place] [address] PCP - General Family Medicine 08/10/23 Georgia Davey NP [address] [place] [address] Nurse Practitioner Family Medicine 07/20/22 Georgia Davey NP [address] [place] [address] Referring Physician Family Medicine 05/04/23 Reason for Visit (unrecogniz ed section and content) Reason Comments Tremors Specialty Diagnoses / Procedures Referred By Contchintan t Referred To Contact Neurology Diagnoses Tremor, unspecified Procedures [place] OFFICE/OUTPATIENT NEW HIGH MDM 60 MINUTES Georgia Davey NP [address] [place] [address] Phone: tel: fax: Galindo Sen MD [address] [place] [address] Phone: tel: fax: Referral ID Status Reason Start Date Expiration Date V isits Requested Visits Authorized [id number] Closed Specialty Services Required 04/19/2024 10/16/2024 1 1 FOR RECORDS PERTAINING TO PATIENTS WHO ARE [...] BE BASED ON THE PRIMARY CLINICAL RECORDS. [facility] [employer] [facility] provides no warranty or guarantee of the accuracy or completeness of information in this document.
== END 2024-05-18 07:24 | disposition home or self-care (01) ==
LOC: MRI 07:23
PROVIDERS: PCP Nurse Practitioner; Visit Provider Psychiatry & Neurology Neurology
DX: R27.0 Ataxia, unspecified (principal); R25.1 Tremor, unspecified
CPT/HCPCS: 70553; A9575

== ENCOUNTER 2024-06-30 09:17 | Outpatient (OUT) | payer OTHER, SELFPAY | END 2024-06-30 09:18 | disposition home or self-care (01) | LOC: PST 09:17 | PROVIDERS: PCP Nurse Practitioner; Visit Provider Surgery | DX: Z01.818 Encounter for other preprocedural examination (principal); K62.5 Hemorrhage of anus and rectum ==

== ENCOUNTER 2024-07-05 09:39 | Day surgery (SDC) | payer OTHER, SELFPAY ==
[2024-07-05 10:45] VITALS: BP 134/74; PULSE 84; TEMP 36.2; O2SAT 97; BMI 27.7
[2024-07-05] MEDS: LACTATED RINGER'S SOLUTION 1,000 ML 50 ML IV (11:19)
--- NOTE | 2024-07-05 11:46 | W.PM.PROCNOT ---
Date of procedure: 07/05/24 Pre-op diagnosis: rectal bleeding Post-op diagnosis: other (mild internal hemorrhoids, external anal sentinel pile ) Procedure: Previous colonoscopy: never procedure: diagnostic colonoscopy The patient was given IV conscious sedation.? The patient's SPO2 remained above 90% throughout the procedure. The colonoscope was inserted per rectum and advanced under direct vision to the cecum without difficulty.? The prep was good.? Findings: Terminal ileum os: normal Cecum/Ascending colon: normal Transverse colon: normal Descending/Sigmoid colon: normal Rectum/Anus: examined in normal and retroflexed positions and mild hemorrhoids were noted, none bleeding and none large enough to band, external sentinel pile noted Withdrawal Time was (minutes): 10 The colon was decompressed and the scope was removed.? The patient tolerated the procedure well. Recommendations/Plan: 1.? Lifestyle and dietary modifications as discussed 2.?F/U in 10 years 3.? Discussed with the family Anesthesia: MAC Surgeon: Keo Brooks Estimated blood loss (mL): 0 Pathology: none sent Condition: stable Disposition: PACU
[2024-07-05 12:43] VITALS: BP 121/77; PULSE 76; TEMP 36.6; O2SAT 99
[2024-07-05 13:13] VITALS: BP 133/85; PULSE 74; TEMP 36.6; O2SAT 97
== END 2024-07-05 13:13 | disposition home or self-care (01) ==
PROVIDERS: PCP Nurse Practitioner; Visit Provider Surgery
PROC: (CPT 811; principal; 2024-07-05 11:20)
DX: K62.5 Hemorrhage of anus and rectum (principal); K64.8 Other hemorrhoids; K64.4 Residual hemorrhoidal skin tags; Z90.49 Acquired absence of other specified parts of digestive tract; G24.01 Drug induced subacute dyskinesia; F31.9 Bipolar disorder, unspecified
CPT/HCPCS: 45378; J2704

== ENCOUNTER 2025-03-30 07:22 | Outpatient (OUT) | payer OTHER, SELFPAY ==
--- NOTE | 2025-03-30 07:25 | CT_ITS ---
The [address] [address] Patient Name: TAHIRA IVEY MRN: [id number] date: 1980 Sex: M Assigned Patient Location: CT Current Patient Location: CT Accession/Order Number: [id number] Exam Date: 03/30/2025 08:30 Report Date: 03/30/2025 09:24 At the request of: TANK MERCER NP Procedure: CT abdomen pelvis w con CT CHEST, ABDOMEN AND PELVIS WITH INTRAVENOUS CONTRAST: CLINICAL HISTORY: Unintentional Weight Loss COMPARISON: CT abdomen 01/26/2020 TECHNIQUE: Spiral images were obtained through the chest, abdomen and pelvis following oral and intravenous administration of 100 mL of Omnipaque 300. Images of the chest were reviewed using both narrow and wide window settings. This CT exam was performed using one or more following dose reduction techniques: Automated exposure control, adjustment of the mA and/or kV according to patient size, or use of iterative reconstruction technique. The heart is normal size. No pericardial effusion is seen. There is no aortic aneurysm or dissection. There are small benign mediastinal, hilar and axillary lymph nodes. There is minor scarring at the lung apices and some dependent atelectasis at the bases. There is no additional consolidation, pleural effusion or pneumothorax. No pulmonary nodularity is seen. The bony structures are intact. The gallbladder is surgically absent. No common duct stones are seen. There are right hepatic hypodensities measuring up to almost 1 cm in size which are too small to fully characterize. Comparison to the prior is also limited due to lack of contrast at that time. The spleen, pancreas and adrenal glands show no acute findings. There are symmetric renal nephrograms, without hydronephrosis. There are small bilateral renal hypodensities suggesting cysts. There are stones at the mid and lower pole of the left kidney measuring 12 mm and 13 mm in greatest dimension. The abdominal aorta is normal caliber. Tiny retroperitoneal and mesenteric lymph nodes are visualized. No ascites is seen. The small bowel loops are not dilated. Stool is present throughout the colon. There is a tiny umbilical hernia containing fat. The lumbar spine is intact. Images through the pelvis show no appendiceal information. There are normal caliber small bowel loops. There is mild distal colonic stool. No diverticular disease is noted. The prostate is not significantly enlarged. The urinary bladder wall is top normal in thickness for the degree of distention. No intraluminal abnormalities are seen. There is no ascites. The scrotum is partially imaged and there is a tiny right hydrocele. CT/CT chest w con IMPRESSION: NO ACUTE INTRATHORACIC FINDINGS. INDETERMINANT RIGHT HEPATIC HYPODENSITIES, DESCRIBED. BILATERAL RENAL CYSTS. LEFT NEPHROLITHIASIS. NO BOWEL OR URINARY TRACT OBSTRUCTION. Impression dictated by: Brooklyn Velasquez M.D. 03/30/2025 9:24 AM Dictation Location: [place] [address] Electronically authenticated by: [id number] Y Date: 03/30/2025 09:24
--- NOTE | 2025-03-30 07:25 | CT_ITS ---
The [address] [address] Patient Name: TAHIRA IVEY MRN: [id number] date: 1980 Sex: M Assigned Patient Location: CT Current Patient Location: CT Accession/Order Number: [id number] Exam Date: 03/30/2025 08:30 Report Date: 03/30/2025 09:24 At the request of: TANK MERCER NP Procedure: CT abdomen pelvis w con CT CHEST, ABDOMEN AND PELVIS WITH INTRAVENOUS CONTRAST: CLINICAL HISTORY: Unintentional Weight Loss COMPARISON: CT abdomen 01/26/2020 TECHNIQUE: Spiral images were obtained through the chest, abdomen and pelvis following oral and intravenous administration of 100 mL of Omnipaque 300. Images of the chest were reviewed using both narrow and wide window settings. This CT exam was performed using one or more following dose reduction techniques: Automated exposure control, adjustment of the mA and/or kV according to patient size, or use of iterative reconstruction technique. The heart is normal size. No pericardial effusion is seen. There is no aortic aneurysm or dissection. There are small benign mediastinal, hilar and axillary lymph nodes. There is minor scarring at the lung apices and some dependent atelectasis at the bases. There is no additional consolidation, pleural effusion or pneumothorax. No pulmonary nodularity is seen. The bony structures are intact. The gallbladder is surgically absent. No common duct stones are seen. There are right hepatic hypodensities measuring up to almost 1 cm in size which are too small to fully characterize. Comparison to the prior is also limited due to lack of contrast at that time. The spleen, pancreas and adrenal glands show no acute findings. There are symmetric renal nephrograms, without hydronephrosis. There are small bilateral renal hypodensities suggesting cysts. There are stones at the mid and lower pole of the left kidney measuring 12 mm and 13 mm in greatest dimension. The abdominal aorta is normal caliber. Tiny retroperitoneal and mesenteric lymph nodes are visualized. No ascites is seen. The small bowel loops are not dilated. Stool is present throughout the colon. There is a tiny umbilical hernia containing fat. The lumbar spine is intact. Images through the pelvis show no appendiceal information. There are normal caliber small bowel loops. There is mild distal colonic stool. No diverticular disease is noted. The prostate is not significantly enlarged. The urinary bladder wall is top normal in thickness for the degree of distention. No intraluminal abnormalities are seen. There is no ascites. The scrotum is partially imaged and there is a tiny right hydrocele. CT/CT abdomen pelvis w con IMPRESSION: NO ACUTE INTRATHORACIC FINDINGS. INDETERMINANT RIGHT HEPATIC HYPODENSITIES, DESCRIBED. BILATERAL RENAL CYSTS. LEFT NEPHROLITHIASIS. NO BOWEL OR URINARY TRACT OBSTRUCTION. Impression dictated by: Brooklyn Velasquez M.D. 03/30/2025 9:24 AM Dictation Location: [place] [address] Electronically authenticated by: [id number] Y Date: 03/30/2025 09:24
--- OUTSIDE RECORDS SUMMARY | 2025-03-30 07:25 | XMS_ITS | CCD ---
Author Organization [facility] Care Team Providers Care Dynamometer Tuner Name Role Phone AICHHOLZ, CONCRETE PUMP OPERATOR HELPER [place] Admitting Unavailable AICHHOLZ, CONCRETE PUMP OPERATOR HELPER [place] Attending Unavailable AICHHOLZ, CONCRETE PUMP OPERATOR HELPER [place] Primary Care Unavailable AICHHOLZ, CONCRETE PUMP OPERATOR HELPER [place] Consulting Unavailable AICHHOLZ, CONCRETE PUMP OPERATOR HELPER [place] Admitting Unavailable AICHHOLZ, CONCRETE PUMP OPERATOR HELPER [place] Attending Unavailable AICHHOLZ, CONCRETE PUMP OPERATOR HELPER [place] Primary Care Unavailable AICHHOLZ, CONCRETE PUMP OPERATOR HELPER [place] Consulting Unavailable AICHHOLZ, CONCRETE PUMP OPERATOR HELPER [place] Admitting Unavailable AICHHOLZ, CONCRETE PUMP OPERATOR HELPER [place] Attending Unavailable AICHHOLZ, CONCRETE PUMP OPERATOR HELPER [place] Primary Care Unavailable DR LISSETH SANTOS V Consulting Unavailable AICHHOLZ, CONCRETE PUMP OPERATOR HELPER [place] Consulting Unavailable AICHHOLZ, CONCRETE PUMP OPERATOR HELPER [place] Admitting Unavailable AICHHOLZ, CONCRETE PUMP OPERATOR HELPER [place] Attending Unavailable AICHHOLZ, CONCRETE PUMP OPERATOR HELPER [place] Primary Care Unavailable Aichholz POWER AND RECOVERY SUPERINTENDENT, [place] Unavailable Aichholz POWER AND RECOVERY SUPERINTENDENT, [place] Unavailable Zach MEI, Montrell Primary Care Provider [phone] Montrell Serrano MD Primary Care Provider Aichholz POWER AND RECOVERY SUPERINTENDENT, [place] Unavailable Marcos PERES, Kwame Unavailable [phone] Nadia Swift DO Unavailable Marcos PMHNP-Kwame BOCANEGRA Unavailable Armen Hernández LPC Unavailable Unavailable Unavailable Primary Care Provider Unavailabl e KWAME FLEMING Attending Unavailable ARMEN HERNÁNDEZ Attending Unavailable KWAME FLEMING Referring Unavailable KWAME FLEMING Attending Unavailable KWAME FLEMING Attending Unavailable KWAME FLEMNIG Attending Unavailable KWAME FLEMING Attending Unavailable FLEMING, KWAME Attending Unavailable AICHHOLZ, [place] Attending Unavailable AICHHOLZ, [place] Attending Unavailable FLEMING, KWAME Attending Unavailable FLEMING, KWAME Attending Unavailable AICHHOLZ, [place] Attending Unavailable NADIA SWIFT Attending Unavailable AICHHOLZ, [place] Referring Unavailable NABEEL, JIM Attending Unavailable AICHHOLZ, [place] Attending Unavailable FLEMING, KWAME Attending Unavailable NABEEL, JIM Referring Unavailable JN BROOKS Attending Unavailable FLEMING, KWAME Attending Unavailable PATRICIA, OLENA LORRIE Referring Unavailable SELF Referring Unavailable PATRICIA, OLENA LORRIE Attending Unavailable HASNISTEVO Allen Attending Unavailable PATRICIA, OLENA LORRIE Referring Unavailable Aichholz POWER AND RECOVERY SUPERINTENDENT, [place] Unavailable Zach MEI, Montrell Primary Care Provider Allergies Allergy Classification Reported Allergen(s) Allergy Type Date of Onset Reaction(s) Facility (3 sources) Morphine; Translations: [MORPHINE] Drug Allergy 7 [facility] (2 sources) Penicillin Drug Allergy 7 [facility] (20 sources) Morphine Drug Allergy 9 Hives, Unknown [facility] (20 sources) Penicillins; Translations: [PENICILLINS] Drug Allergy 4 Rash [facility] Healthcare (4 sources) Penicillins Drug Allergy 4 Rash [facility] Medications Current Medications Medication Drug Class(es) Dates Sig (Normalized) Sig (Original) ARIPiprazole 10 mg oral tablet (20 sources) Atypical Antipsychotic Start: 04-17-2024 End: 09-14-2024 take 1 tablet by mouth once daily ARIPiprazole (Abilify) 10 MG tablet Indications: Bipolar 2 disorder (CMS/HCC) Take 1 tablet (10 mg) by mouth Daily 30 tablet 2 08/10/2024 09/14/2024 Discontinued (Ineffective) Start: 11-17-2023 End: 04-19-2024 take 1 tablet by mouth once daily ARIPiprazole (Abilify) 15 MG tablet Take 15 mg by mouth Daily 11/17/2023 04/19/2024 Discontinued (Therapy completed) take 1 tablet by laisha th in the morning ARIPiprazole (Abilify) 30 MG tablet Take 1 tablet by mouth in the morning. 0 Active betamethasone 0.5 mg/ml / clotrimazole 10 mg/ml topical cream (8 sources) Azole Antifungal, Corticosteroid Start: 06-13-2024 End: 07-11-2024 clotrimazole-betamethasone (Lotrisone) cream Indications: Rash Apply topically 2 (two) times a day for 28 days 45 g 06/13/2024 07/11/2024 Active bisacodyl 5 mg delayed release oral tablet (2 sources) Stimulant Laxative Start: 06-29-2024 End: 06-29-2024 take 1 tablet by mouth once bisacodyl (Dulcolax) 5 MG EC tablet Indications: Rectal bleeding Take 1 tablet (5 mg) by mouth 1 time for 1 dose Do not crush, chew, or split. Take as detailed on clinic hand out for colonoscopy prep 4 tablet 06/29/2024 06/29/2024 Active chlorhexidine gluconate 1.2 mg/ml mouthwash (3 [...] 9 MG tablet 2 tablets 0 Active FLUoxetine 20 mg oral capsule (20 sources) Serotonin Reuptake Inhibitor Start: 11-30-2024 End: 04-28-2025 take 1 capsule by mouth once daily FLUoxetine (PROzac) 20 MG capsule Indications: SAMRA (generalized anxiety disorder) , Tardive dyskinesia Take 1 capsule (20 mg) by mouth Daily 30 capsule 5 03/29/2025 04/28/2025 Active lamoTRIgine 25 mg oral tablet (20 sources) Mood Stabilizer, Anti-epileptic Agent Start: 11-09-2024 End: 04-28-2025 take 2 tablets by mouth once daily lamoTRIgine (LaMICtal) 25 MG tablet Indications: Bipolar 2 disorder (HCC) , Tardive dyskinesia Take 2 tablets (50 mg) by mouth Daily 60 tablet 5 03/29/2025 04/28/2025 Active Start: 10-19-2024 End: 11-16-2024 take 1 tablet by mouth once daily, then take 2 tablets by mouth once daily lamoTRIgine (LaMICtal) 25 MG tablet Indications: Bipolar 2 disorder (CMS/HCC) Take 1 tablet (25 mg) by mouth Daily for 14 days, THEN 2 tablets (50 mg) Daily for 14 days. 42 tablet 10/19/2024 11/09/2024 Discontinued (Dose adjustment) 24 hr loratadine 10 mg / pseudoephedrine sulfate 240 mg extended release oral tablet (3 sources) alpha-Adrenergic Agonist End: 04-19-2024 take 10-240 mg by mouth every twenty-four hours loratadine-pseudoephedrine ER (Claritin-D 24-hour) 10-240 MG 24 hr tablet Take 1 tablet by mouth Daily Do not crush, chew, or split. 04/19/2024 Discontinued (Therapy completed) Lumateperone Tosylate (Caplyta) 10.5 MG capsule (2 sources) Start: 09-14-2024 End: 10-14-2024 take 1 capsule by mouth once daily Lumateperone Tosylate (Caplyta) 10.5 MG capsule Indications: Bipolar 2 disorder (CMS/HCC) Take 10.5 mg by mouth Daily 30 capsule 09/14/2024 10/14/2024 Active Lumateperone Tosylate (Caplyta) 21 MG capsule (4 sources) Start: 10-05-2024 End: 10-19-2024 take 1 capsule by mouth at mealtime Lumateperone Tosylate (Caplyta) 21 MG capsule Indications: Bipolar 2 disorder (CMS/HCC) Take 21 mg by mouth in the evening. Take with meals 30 capsule 10/05/2024 10/19/2024 Discontinued (Side effects) Start: 10-05-2024 End: 11-04-2024 take 1 capsule by mouth at mealtime Lumateperone Tosylate (Caplyta) 21 MG capsule Indications: Bipolar 2 disorder (CMS/HCC) Take 21 mg by mouth in the evening. Take with meals 30 capsule 10/05/2024 11/04/2024 Active montelukast 10 mg oral tablet (3 sources) Leukotriene Receptor Antagonist End: 04-19-2024 take 1 tablet by mouth at bedtime [...] the evening. Take with meals. 0 Active polyethylene glycol 3350 58249 mg powder for oral solution (2 sources) Osmotic Laxative Start: 06-29-2024 End: 06-29-2024 take 17 g by mouth once polyethylene glycol, PEG, 3350 (Glycolax) 17 GM/SCOOP powder Indications: Colonoscopy Take 238 g by mouth 1 (one) time for 1 dose Take as detailed from clinic hand out for colonoscopy prep 238 g 06/29/2024 06/29/2024 Active 24 hr propranolol hydrochloride 60 mg extended release oral capsule (20 sources) beta-Adrenergic April Start: 08-15-2024 End: 02-28-2025 take 1 capsule by mouth once daily propranolol LA (Inderal LA) 60 MG 24 hr capsule Indications: Tremor Take 1 capsule (60 mg) by mouth Daily Do not crush, chew, or split. 90 capsule 11/30/2024 02/22/2025 Discontinued (Therapy completed) valbenazine 80 mg oral capsule (20 sources) Start: 03-29-2025 End: 04-28-2025 take 1 capsule by mouth once daily valbenazine tosylate (Ingrezza) 80 MG capsule Indications: Bipolar 2 disorder (HCC) , SAMRA (generalized anxiety disorder) Take 1 capsule (80 mg) by mouth Daily 30 capsule 1 03/29/2025 03/29/2025 Discontinued (Reorder) Start: 01-25-2025 End: 02-22-2025 valbenazine (INGREZZA) 40 mg capsule Take 40 mg by mouth. 01/25/2025 Active Start: 07-19-2024 End: 10-19-2024 take 1 capsule by mouth once daily valbenazine tosylate (Ingrezza) 40 MG capsule Indications: Tardive dyskinesia Take 1 capsule (40 mg) by mouth Daily 30 capsule 07/19/2024 10/19/2024 Discontinued (Dose adjustment) Valbenazine Tosylate (Ingrezza) 60 MG capsule (19 sources) Start: 02-22-2025 End: 03-29-2025 take 1 capsule by mouth once daily in the morning Valbenazine Tosylate (Ingrezza) 60 MG capsule Indications: Tardive dyskinesia Take 1 capsule by mouth Daily in the Morning 90 capsule 3 02/22/2025 03/29/2025 Discontinued (Dose adjustment) Start: 02-22-2025 End: 05-23-2025 take 1 capsule by mouth once daily in the morning Valbenazine Tosylate (Ingrezza) 60 MG capsule Indications: Tardive dyskinesia Take 1 capsule by mouth Daily in the Morning 90 capsule 3 02/22/2025 05/23/2025 Active Start: 11-30-2024 End: 01-25-2025 take 1 capsule by mouth once daily Valbenazine Tosylate (Ingrezza) 60 MG capsule Indications: Tardive dyskinesia Take 1 capsule by mouth Daily 30 capsule 10 11/30/2024 01/25/2025 Discontinued Start: 11-30-2024 take 1 capsule by mo [facility] once daily Valbenazine Tosylate (Ingrezza) 60 MG capsule Indications: Tardive dyskinesia Take 1 capsule by mouth Daily 30 capsule 10 11/30/2024 Active Start: 11-30-2024 End: 12-30-2024 take 1 capsule by mouth once daily Valbenazine Tosylate (Ingrezza) 60 MG capsule Indications: Tardive dyskinesia Take 1 capsule by mouth Daily 30 capsule 10 11/30/2024 12/30/2024 Active Start: 11-02-2024 End: 11-30-2024 take 1 capsule by mouth once daily Valbenazine Tosylate (Ingrezza) 60 MG capsule Indications: Tardive dyskinesia Take 1 capsule by mouth Daily 30 capsule 10 11/02/2024 11/30/2024 Discontinued (Reorder) Start: 11-02-2024 End: 12-02-2024 take 1 capsule by mouth once daily Valbenazine Tosylate (Ingrezza) 60 MG capsule Indications: Tardive dyskinesia Take 1 capsule by mouth Daily 30 capsule 10 11/02/2024 12/02/2024 Active Start: 10-19-2024 End: 11-18-2024 take 1 capsule by mouth once daily Valbenazine Tosylate (Ingrezza) 60 MG capsule Indications: Tardive dyskinesia Take 60 mg by mouth Daily 30 capsule 1 10/19/2024 11/18/2024 Active Completed/Discontinued Medications Medication Drug Class(es) Dates Sig (Normalized) Sig (Original) Deutetrabenazine ER (Austedo XR) 12 MG tablet sustained-release 24 hour (11 sources) End: 06-22-2024 take 1 tablet by mouth once daily, then take 1 tablet by mouth every twenty-four hours Deutetrabenazine ER (Austedo XR) 12 MG tablet sustained-release 24 hour Take 12 mg by mouth Daily 06/22/2024 Discontinued (Dose adjustment) take 1 tablet by laisha th once daily, then take 1 tablet by mouth every twenty-four hours Deutetrabenazine ER (Austedo XR) 12 MG tablet sustained-release 24 hour Take 12 mg by mouth Daily Active Deutetrabenazine ER (Austedo XR) 24 MG tablet sustained-release 24 hour (11 sources) End: 06-22-2024 take 1 tablet by mouth once daily, then take 1 tablet by mouth every twenty-four hours Deutetrabenazine ER (Austedo XR) 24 MG tablet sustained-release 24 hour Take 24 mg by mouth Daily 06/22/2024 Discontinued (Dose adjustment) take 1 tablet by laisha th once daily, then take 1 tablet by mouth every twenty-four hours Deutetrabenazine ER (Austedo XR) 24 MG tablet sustained-release 24 hour Take 24 mg by mouth Daily Active Deutetrabenazine ER (Austedo XR) 42 MG tablet sustained-release 24 hour (8 sources) Start: 06-22-2024 End: 07-19-2024 take 1 tablet by mouth once daily, then take 1 tablet by mouth every twenty-four hours Deutetrabenazine ER (Austedo XR) 42 MG tablet sustained-release 24 hour Indications: Tardive dyskinesia Take 42 mg by mouth Daily 30 tablet 11 06/22/2024 07/19/2024 Discontinued (Side effects) Start: 06-22-2024 End: 07-22-2024 take 1 tablet by mouth once daily, then take 1 tablet by mouth every twenty-four hours Deutetrabenazine ER (Austedo XR) 42 MG tablet sustained-release 24 hour Indications: Tardive dyskinesia Take 42 mg by mouth Daily 30 tablet 11 06/22/2024 07/22/2024 Active Problems Active Problems Problem Classification Problem Date Documented Date Episodic/Chronic Adjustment disorders (1 source) Adjustment disorder with mixed anxiety and depressed mood; Translations: [Adjustment disorder with mixed anxiety and depressed mood] 03-06-2025 Chronic Anxiety disorders (20 sources) Generalized anxiety disorder; Translations: [Generalized anxiety disorder] Onset: 11-30-2024 10-19-2024 Chronic Mood disorders (20 sources) Bipolar I disorder; Translations: [Bipolar disorder, unspecified] Onset: 09-08-2023 Resolved: 11-30-2024 09-08-2023 Chronic Other hereditary and degenerative nervous system conditions (8 sources) Functional movement disorder; Translations: [Extrapyramidal and movement disorder, unspecified] 02-06-2025 Chronic Other hereditary and degenerative nervous system conditions (1 source) Extrapyramidal and movement disorder, unspecified; Translations: [Functional movement disorder] Onset: 02-16-2025 Chronic Other hereditary and degenerative nervous system conditions (20 sources) Tardive dyskinesia; Translations: [Drug induced subacute dyskinesia] Onset: 11-30-2024 05-05-2024 Episodic Other hereditary and degenerative nervous system conditions (1 source) Drug induced subacute dyskinesia; Translations: [Dyskinesia, tardive] Onset: 02-16-2025 Episodic Other nervous system disorders (1 source) Parkinsonism due to drug; Translations: [Other drug induced secondary parkinsonism] 02-03-2025 Chronic Other nervous system disorders (1 source) Other drug induced secondary parkinsonism; 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)] Onset: 02-03-2025 Chronic Other nervous system disorders (4 sources) Ataxia; Translations: [Ataxia, unspecified] 05-05-2024 Episodic Other non-traumatic joint disorders (20 sources) Derangement of right shoulder joint; Translations: [Other specific joint derangements of right shoulder, not elsewhere classified] Onset: 06-10-2023 06-10-2023 Chronic Past or Other Problems Problem Classification Problem Date Documented Da te Episodic/Chronic Cardiac dysrhythmias (4 sources) Palpitations; Translations: [PALPITATIONS] Onset: 08-30-2021 Episodic Gastrointestinal hemorrhage (20 sources) Rectal hemorrhage; Translations: [Hemorrhage of anus and rectum] Onset: 06-13-2024 Resolved: 11-30-2024 06-13-2024 Episodic Genitourinary symptoms and ill-defined conditions (11 sources) Polyuria; Translations: [Polyuria] Onset: 12-08-2024 12-08-2024 Episodic Mood disorders (20 sources) Mood disorders Onset: 09-14-2024 Resolved: 10-19-2024 09-14-2024 Other lower respiratory disease (1 source) Dyspnea, unspecified; Translations: [DYSPNEA UNSPECIFIED] Onset: 08-22-2021 Episodic Other lower respiratory disease (20 sources) Dyspnea; Translations: [Dyspnea, unspecified] Onset: 09-08-2023 Resolved: 11-30-2024 09-23-2023 Episodic Other lower respiratory disease (20 sources) Wheezing; Translations: [Wheezing] Onset: 09-08-2023 Resolved: 11-30-2024 09-08-2023 Episodic Other nervous system disorders (20 sources) Tremor; Translations: [Tremor, unspecified] Onset: 04-19-2024 04-19-2024 Episodic Other non-traumatic joint disorders (11 sources) Joint stiffness; Translations: [Stiffness of unspecified joint, not elsewhere classified] Onset: 12-08-2024 12-08-2024 Episodic Other nutritional; endocrine; and metabolic disorders (20 sources) Body mass index 25-29 - overweight; Translations: [Overweight] Onset: 09-08-2023 09-08-2023 Episodic Other nutritional; endocrine; and metabolic disorders (13 sources) Unintentional weight loss; Translations: [Abnormal weight loss] Onset: 12-08-2024 12-08-2024 Episodic Other skin disorders (20 sources) Eruption; Translations: [Rash and other nonspecific skin eruption] Onset: 06-13-2024 Resolved: 11-30-2024 06-13-2024 Episodic Other skin disorders (11 sources) Excessive sweating; Translations: [Generalized hyperhidrosis] Onset: 12-08-2024 12-08-2024 Episodic Residual codes; unclassified (20 sources) History of arthroscopic procedure on shoulder; Translations: [Other specified postprocedural states] Onset: 08-17-2023 08-17-2023 Episodic Results Test Name Value Interpretation Reference Range Facil ity CNTHERAPYon 02-16-2025 CNTHERAPY OT/PT/Speech Visit (PHYTMN) TAHIRA IVEY ([id number]) 1980 M Date Time Provider Department 02/16/25 7:45 AM MYRIAM SWANN Date Time Provider Department [place] 02/16/2025 7:45 AM [id number] SWANN [facility] Reason for Visit: PT Eval [747] Visit Diagnoses: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 - valbenazine (INGREZZA) 40 mg capsule Take 40 mg by mouth. - lamoTRIgine (LAMICTAL) 25 mg tablet Take 50 mg by mouth. Normal [facility] CNOVon 02-15-2025 CNOV Office Visit (NREUS2 ) TAHIRA IVEY ([id number]) 1980 M Date Time Provider Department 02/15/25 8:00 AM RADHA HEAVENSUZANNA NREUS2 During your visit today, we recorded the following information about you: Stevo Garcia PSYD 03/06/2025 10:38 PM Signed [facility] [place] Clinical [facility] Psychology Evaluation Time of Service: 8:05 am to 9:00 am CPT Code: psychodiagnostic evaluation Billing Code: Radha The patient was informed that this interview was only for the purpose of assessing the presenting problem, for diagnosis and treatment planning and/or to make treatment recommendations. The patient agreed that the evaluation would not be used for forensic, disability, or child custody purposes. The following history is obtained from the patient except when noted. The content acquired from chart review has been confirmed with the patient and discrepancies were noted if any. Limits of confidentiality were discussed. Identification and Presenting Problem: Mr. Ivey is a 44 year old male who was referred by Dr. 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 He presents with a history of involuntary movement symptoms. Symptom onset: 1 year Most bothersome symptoms: tremor Aggravating factors: stress Alleviating factors: distraction Social History: Mr. Ivey was raised in [place]. He has one half brother who is 12 years younger than him. There is no family history for movement disorder. Family history is negative for severe mental illness or treatment. The patient endorses a history of bipolar affective disorder and has engaged and mental health treatment and both inpatient and outpatient settings. He currently works with a local mental health provider who manages his medication regimen. The patient denies any history of alcohol or drug abuse in his family. Likewise, he denies any history of alcohol or drug abuse on his own part. denied Mr. Ivey denies any history of physical or sexual abuse in childhood. However, he notes the loss of his grandparents was significantly distressing to him. The patient works full-time however endorses a history of bullying in the workplace for the past 8 years. The patient does not receive any disability payments, nor has he applied for any. Mr. Ivey has been to his for 7 years. He describes this relationship to be stable and supportive. He denies having children. There is no problem list on file for this patient. Current Functioning: He describes a variable sleep and wake schedule often dictated by his work hours. He describes significant fatigue throughout the day however continues to engage in recreational activity such as playing golf and completing home improvement tasks. Medications: Current Outpatient Medications Medication Sig FLUoxetine (PROZAC) 20 mg capsule Take 20 mg by mouth. valbenazine (INGREZZA) 40 mg capsule Take 40 mg by mouth. lamoTRIgine (LAMICTAL) 25 mg tablet Take 50 mg by mouth. No current facility-administered medications for this visit. Mr. Ivey reports significant depressive symptoms in the past month, including sleep disturbance, 20 pound weight loss and fatigue as well as memory and concentration problems. He denies SI, intent, plan, or recent attempts. He notes intermittent instances of irritability as well as a remote history of panic. Drug and alcohol screening and triage Caffeine use: Minimal Tobacco use: Denied Current illicit drug use: None Current marijuana use: Mr. Ivey denied marijuana use within the past month. Current use of prescribed opioids, sedatives AND benzodiazepines: Mr. Ivey does not use opioids or sedative/hypnotics. Alcohol use: Mr. Ivey has consumed no alcoholic beverages in the past week. He has not consumed more than 4 alcoholic beverages (3 if female) in a single sitting within the past month. Screening questions: - ?Has a family member, friend or physician expressed concern about your drug, alcohol, or prescription medication use?? No. - Have you ever been evaluated or treated for problems with alcohol or other drugs, including prescribed drugs? No. - Have you ever been concerned that prescriptions, recreational drugs, or alcohol had become harmful to you? No. Impressions Mr. Ivey is a 44 year old male who was referred by Dr. 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 He presents with a 1 year history of involuntary movement symptoms, including tremor. He reports aggravating factors appear to be stressful circumstances with temporary relief when implementing distraction techniques. He endorses a prior history of bipolar affective disorder for which he is treating via psychotropic medication at the (more content not included)... Normal [facility] CNOVon 02-03-2025 CNOV Office Visit (NREUS2 ) TAHIRA IVEY ([id number]) 1980 M Date Time Provider Department 02/03/25 9:30 AM OLENA GOMEZ During your visit today, we recorded the following information about you: Pulse Blood pressure 71/minute 119/80 Willow Wilkins MD 02/06/2025 12:29 PM Signed [facility] - NEW PATIENT EVALUATION Primary Movement Disorders Neurologist: Willow Wilkins MD Primary Movement Disorders JAVAN: I had the pleasure of evaluating Mr. Ivey in our clinic today. He is a 44 year old left-handed male who presents for evaluation of tardive dyskinesia since >10 years . Subjective HISTORY OF PRESENT ILLNESS: Initial HPI Tahira Ivey is a 44-year-old male with a history of bipolar affective disorder, MDD, SAMRA, tremors, and tardive dyskinsia presenting with concerns about tardive dyskinesia and tremor. He is from [facility] and follows with a local psychiatry team. Chart Review: Per records he is currently on fluoxetine, lamotrigine, propranolol, and valbenazine. He saw his psychiatry POWER AND RECOVERY SUPERINTENDENT on 01/25/2025 where he asked for a weaning protocol for his ingrezza and propranolol so we would be better able to appreciate his movements at the appointment today. He was instructed to decrease Ingrezza to 40 mg daily and decrease Propranolol to every other day for 1 week, then every 3 days for 1 week, then stop medication. August 2024 he was switched from Abilify to Caplyta (lumateperone) due to akathesia and increased tremors. Around September 2024 was put on a higher dose of caplyta (lumateperone) which resulted in excessive blinking, twitching, movement of his neck, jaw clenching, and increased anxiety prompting discontinuation of medication in October and avoidance of SGA by psychiatry provider. He was placed on lamictal in October 2024 for mood stabilization and Ingrezza was increased to 60mg for TD management. Last visit with a Neurologist was 05/05/[address] Nadia Swift with [facility]. 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 He recommended psychiatry consider non-dopamine blocking agents for management of psychiatry pathology. History Obtained Today: Tahira reports a long-standing history of involuntary tongue movements and hand postures, which have progressively worsened over time. Approximately one year ago, he began experiencing an inability to sit still and the onset of tremors, which have also progressively worsened. These symptoms are exacerbated by stress, overstimulation, and certain activities such as holding a screwdriver or flashlight. He notes a constant urge to move, particularly at night, which disrupts his sleep. He also reports excessive sweating, which began this year, and neck pain, which he attributes to his involuntary movements. He denies any falls due to his movements. Tahira has a history of bipolar disorder, for which he was previously treated with aripiprazole for over 10 years. He believes this medication may have contributed to his current symptoms. He also has a history of risperidone use, but cannot recall the duration. He has tried multiple medications for his symptoms, including benztropine, Austedo, and propranolol, but did not find them effective. He is currently taking fluoxetine 20 mg QHS, lamotrigine 50 mg QHS, and Ingrezza 40 mg QAM. He recently decreased his Ingrezza dose from 60 mg to 40 mg and discontinued propranolol 60 mg, which he was taking every 3 days with the goal of having his symptoms be worse for this appointment. He reports that Ingrezza provides some relief, but he does not think the propranolol helped. He denies any worsening in his tremor after discontinuing propranolol. He has not tried benzodiazepines. Tahira reports that his symptoms improved after discontinuing aripiprazole and Austedo, but have remained stable over the past year. He denies any family history of tremors, Parkinson's disease, or dementia. He has a family history of multiple sclerosis in his father and type 1 diabetes in his brother. He denies any history of hypertension, hypercholesterolemia, or diabetes. He has a history of cholecystectomy. He denies any tobacco, marijuana, or other drug use. He rarely consumes alcohol and did not notice any improvement in his tremor with alcohol consumption. Movement Disorders Medications Schedule - as of the start of the visit: Medications AM PM fluoxetine 20 mg 1 lamotrigine 25 mg 2 valbenazine 60 mg 1 propranolol 60 mg 1 Other Movement Disorder Prior Therapies Dutetrabenazine, Valbenazine Bneztropine Questionnaires Revi (more content not included)... Normal [facility] CBC AUTO DIFFon 04-23-2022 BASO # 0.1 103/ul Normal 0.0-0.[address] [facility] Comment on above: Performed By: #### C BC #### [facility] [address] [place] [address] Dr. Lazara Mott Basophils/100 WBC (Bld) 1.4 % Normal 0.2-2.[address] [facility] Comment on above: Performed By: #### C BC #### [facility] [address] [place] [address] Dr. Lazara Mott EO # 0.3 103/ul Normal 0.0-0.[address] [facility] Comment on above: Performed By: #### C BC #### [facility] [address] [place] [address] Dr. Lazara Mott Eosinophils/100 WBC (Bld) 3.1 % Normal 0.9-7.[address] [facility] Comment on above: Performed By: #### C BC #### [facility] [address] [place] [address] Dr. Lazara Mott Erythrocyte distribution width (RBC) [Ratio] 12.2 % Normal 11.0-15.[address] [facility] Comment on above: Performed By: #### C BC #### [facility] [address] [place] [address] Dr. Lazara Mott Hematocrit (Bld) [Volume fraction] 45.0 % Normal 42.0-54.[address] [facility] Comment on above: Performed By: #### C BC #### [facility] [address] [place] [address] Dr. Lazara Mott Hemoglobin (Bld) [Mass/Vol] 15.2 g/dL Normal 14.0-18.[address] [facility] Comment on above: Performed By: #### C BC #### [facility] [address] [place] [address] Dr. Lazara Mott IG # 0.06 10e3/ul Critically high 0.00-0.03 [facility] Comment on above: Performed By: #### C BC #### [facility] [address] [place] [address] Dr. Lazara Mott IG % 0.7 % Critically high 0.0-0.5 [facility] Comment on above: Performed By: #### C BC #### [facility] [address] [place] [address] Dr. Lazara Mott LYMPH # 2.5 103/ul Normal 1.2-3.[address] [facility] Comment on above: Performed By: #### C BC #### [facility] [address] [place] [address] Dr. Lazara Mott Lymphocytes/100 WBC (Bld) 31.5 % Normal 20.5-60.[address] [facility] Comment on above: Performed By: #### C BC #### [facility] [address] [place] [address] Dr. Lazara Mott MANUAL DIFF REQ NO Normal [facility] Comment on above: Performed By: #### C BC #### [facility] [address] [place] [address] Dr. Lazara Mott MCH (RBC) [Entitic mass] 30.6 pg Normal 25.9-34.[address] [facility] Comment on above: Performed By: #### C BC #### [facility] [address] [place] [address] Dr. Lazara Mott MCHC (RBC) [Mass/Vol] 33.8 g/dL Normal 29.9-35.[address] [facility] Comment on above: Performed By: #### C BC #### [facility] [address] [place] [address] Dr. Lazara Mott MCV (RBC) [Entitic vol] 90.7 fL Normal 80.0-94.[address] [facility] Comment on above: Performed By: #### C BC #### [facility] [address] [place] [address] Dr. Lazara Mott MONO # 0.7 103/ul Normal 0.3-0.[address] [facility] Comment on above: Performed By: #### C BC #### [facility] [address] [place] [address] Dr. Lazara Mott Monocytes/100 WBC (Bld) 8.7 % Normal 1.7-12.[address] [facility] Comment on above: Performed By: #### C BC #### [facility] [address] [place] [address] Dr. Lazara Mott NEUT # 4.4 103/ul Normal 1.4-6.[address] [facility] Comment on above: Performed By: #### C BC #### [facility] [address] [place] [address] Dr. Lazara Mott Neutrophils/100 WBC (Bld) 54.6 % Normal 43.0-75.[address] [facility] Comment on above: Performed By: #### C BC #### [facility] [address] [place] [address] Dr. Lazara Mott Platelet mean volume (Bld) [Entitic vol] 9.9 fL Normal 9.5-13.5 [facility] Comment on above: Performed By: #### C BC #### [facility] [address] [place] [address] Dr. Lazara Mott PLT 297 103/ul Normal 150-450 [facility] Comment on above: Performed By: #### C BC #### [facility] [address] [place] [address] Dr. Lazara Mott RBC 4.96 106/ul Normal 4.70-6.10 [facility] Comment on above: Performed By: #### C BC #### [facility] [address] [place] [address] Dr. Lazara Mott WBC 8.0 103/ul Normal 4.0-11.0 [facility] Comment on above: Performed By: #### C BC #### [facility] [address] [address] [address] Lazara Mott LIPID PROFILEon 04-23-2022 CHOL-HDL RATIO NORM SEE BELOW Normal [facility] Comment on above: Result Comment: 3.3 - 4.4 LOW RISK 4.4 - 7.1 AVERAGE RISK 7.1 - 11.0 MODERATE RISK >11.0 HIGH RISK Performed By: #### T SH, LIPID, CMP #### [facility] [address] [address] [address] Lazara Mott Cholesterol [Mass/Vol] 145 mg/dL Normal <=[address] [facility] Comment on above: Performed By: #### T SH, LIPID, CMP #### [facility] [address] [address] [address] Lazara Mott Cholesterol in HDL [Mass/Vol] 43 mg/dL Normal 40-[address] [facility] Comment on above: Performed By: #### T JOSEMANUEL, LIPID, CMP #### [facility] [address] [address] [address] Lazara Mott Cholesterol in LDL [Mass/Vol] 62.0 mg/dL Normal [facility] Comment on above: Performed By: #### T SH, LIPID, CMP #### [facility] [address] [address] [address] Lazara Mott Cholesterol.total/ Cholesterol in HDL [Mass ratio] 3.4 {ratio} Normal [facility] Comment on above: Performed By: #### T SH, LIPID, CMP #### [facility] [address] [address] [address] Lazara Mott HDL NORMAL > or = 60 mg/dl - LO W CARDIOVASCULAR RISK <40 mg/dl - HIGH CARDIOVASCULAR RISK Normal [facility] Comment on above: Performed By: #### T SH, LIPID, CMP #### [facility] [address] [address] [address] Lazara Mott LDL CALC NORMAL SEE BELOW Normal [facility] Comment on above: Result Comment: <100 mg/dl OPTIMAL 100 - 129 mg/dl NEAR OR ABOVE OPTIMAL 130 - 159 mg/dl BORDERLINE HIGH 160 - 189 mg/dl HIGH >190 mg/dl VERY HIGH Performed By: #### T JOSEMANUEL, LIPID, CMP #### [facility] [address] [place] [address] Dr. Lazara Mott Triglyceride [Mass/Vol] 200 mg/dL Critically high <=[address] [facility] Comment on above: Performed By: #### T SH, LIPID, CMP #### [facility] [address] [place] [address] Dr. Lazara Mott VLDL CALC 40.0 mg/dL Normal [facility] Comment on above: Performed By: #### T JOSEMANUEL, LIPID, CMP #### [facility] [address] [place] [address] Dr. Lazara Mott PROF 14(COMP METB)on 022 Albumin [Mass/Vol] 4.0 g/dL Normal 3.4-5.0 [facility] Comment on above: Performed By: #### T JOSEMANUEL, LIPID, CMP #### [facility] [address] [place] [address] Dr. Lazara Mott Albumin/Globulin [Mass ratio] 1.2 {ratio} Normal [facility] Comment on above: Performed By: #### T JOSEMANUEL, LIPID, CMP #### [facility] [address] [place] [address] Dr. Lazara Mott ALP [Catalytic activity/Vol] 80 U/L Normal 46-[address] [facility] Comment on above: Performed By: #### T JOSEMANUEL, LIPID, CMP #### [facility] [address] [place] [address] Dr. Lazara Mott ALT [Catalytic activity/Vol] 67 U/L Critically high 16-63 [facility] Comment on above: Performed By: #### T JOSEMANUEL, LIPID, CMP #### [facility] [address] [place] [address] Dr. Lazara Mott Anion gap [Moles/Vol] 13.9 mmol/L Normal [facility] Comment on above: Performed By: #### T JOSEMANUEL, LIPID, CMP #### [facility] [address] [place] [address] Dr. Lazara Mott AST [Catalytic activity/Vol] 26 U/L Normal 15-[address] [facility] Comment on above: Performed By: #### T SH, LIPID, CMP #### [facility] [address] [place] [address] Dr. Lazara oMtt Bilirubin [Mass/Vol] 0.6 mg/dL Normal 0.2-1.[address] [facility] Comment on above: Performed By: #### T SH, LIPID, CMP #### [facility] [address] [place] [address] Dr. Lazara Mott Calcium [Mass/Vol] 8.9 mg/dL Normal 8.5-10.1 [facility] Comment on above: Performed By: #### T SH, LIPID, CMP #### [facility] [address] [place] [address] Dr. Lazara Mott Chloride [Moles/Vol] 102 mmol/L Normal 98-[address] [facility] Comment on above: Performed By: #### T SH, LIPID, CMP #### [facility] [address] [place] [address] Dr. Lazara Mott CO2 [Moles/Vol] 24.9 mmol/L Normal 21.0-32.0 [facility] Comment on above: Performed By: #### T SH, LIPID, CMP #### [facility] [address] [place] [address] Dr. Lazara Mott Creatinine [Mass/Vol] 1.13 mg/dL Normal 0.70-1.[address] [facility] Comment on above: Performed By: #### T SH, LIPID, CMP #### [facility] [address] [place] [address] Dr. Lazara Mott EGFR-AF TRISTANIAN >60 Normal >=60 [facility] Comment on above: Performed By: #### T SH, LIPID, CMP #### [facility] [address] [place] [address] Dr. Lazara Mott EGFR-NON AF TRISTANIAN >60 Normal >=[address] [facility] Comment on above: Performed By: #### T SH, LIPID, CMP #### [facility] [address] [address] [address] Lazara Mott Globulin (S) [Mass/Vol] 3.3 g/dL Normal [facility] Comment on above: Performed By: #### T JOSEMANUEL, LIPID, CMP #### [facility] [address] [place] [address] Dr. Lazara Mott Glucose [Mass/Vol] 87 mg/dL Normal 74-106 [facility] Comment on above: Performed By: #### T JOSEMANUEL, LIPID, CMP #### [facility] [address] [place] [address] Dr. Lazara Mott Potassium [Moles/Vol] 3.8 mmol/L Normal 3.5-5.1 [facility] Comment on above: Performed By: #### T JOSEMANUEL LIPID, CMP #### [facility] [address] [place] [address] Dr. Lazara Mott Protein [Mass/Vol] 7.3 g/dL Normal 6.4-8.2 [facility] Comment on above: Performed By: #### T JOSEMANUEL, LIPID, CMP #### [facility] [address] [place] [address] Dr. Lazara Mott Sodium [Moles/Vol] 137 mmol/L Normal 136-145 [facility] Comment on above: Performed By: #### T JOSEMANUEL, LIPID, CMP #### [facility] [address] [place] [address] Dr. Lazara Mott Urea nitrogen [Mass/Vol] 9.0 mg/dL Normal 7.0-18.[address] [facility] Comment on above: Performed By: #### T JOSEMANUEL, LIPID, CMP #### [facility] [address] [place] [address] Dr. Lazara Mott Urea nitrogen/Creatinin e [Mass ratio] 8.0 mg/mg Normal [facility] Comment on above: Performed By: #### T JOSEMANUEL, LIPID, CMP #### [facility] [address] [place] [address] Dr. Lazara Mott TSHon 04-23-2022 TSH 1.148 uIU/mL Normal 0.358-3.740 [facility] Comment on above: Performed By: #### T SH, LIPID, CMP #### [facility] [address] [address] [address] Lazara Mott UA RANDOM W/MICROSCOPICon AMORPHOUS CRYSTALS MODERATE Normal [facility] Comment on above: Performed By: #### U AMIC #### [facility] [address] [address] [address] Lazara Mott BACTERIA NONE SEEN Normal NONE SEEN [facility] Comment on above: Performed By: #### U AMIC #### [facility] [address] [address] [address] Lazara Mott Bilirubin Ql (U) Negative Normal NEGATIVE [facility] Comment on above: Performed By: #### U AMIC #### [facility] [address] [address] [address] Lazara Mott CAST NONE SEEN Normal NONE SEEN [facility] Comment on above: Performed By: #### U AMIC #### [facility] [address] [address] [address] Lazara Mott Clarity (U) SL CLOUDY Abnormal CLEAR [facility] Comment on above: Performed By: #### U AMIC #### [facility] [address] [address] [address] Lazara Mott Color (U) LT. YELLOW Normal YELLOW [facility] Comment on above: Performed By: #### U AMIC #### [facility] [address] [address] [address] Lazara Mott Crystals LM Nom (Urine sed) SEEN Abnormal NONE SEEN [facility] Comment on above: Performed By: #### U AMIC #### [facility] [address] [address] [address] Lazara Mott Epithelial cells LM Ql (Urine sed) NONE SEEN Normal NONE SEEN /RARE [facility] Comment on above: Performed By: #### U AMIC #### [facility] [address] [address] [address] Lazara Mott Glucose Ql (U) Negative Normal NEGATIVE [facility] Comment on above: Performed By: #### U AMIC #### [facility] [address] [address] [address] Lazara Mott Hemoglobin Ql (U) Negative Normal NEGATIVE [facility] Comment on above: Performed By: #### U AMIC #### [facility] [address] [address] [address] Lazara Mott Ketones Ql (U) Negative Normal NEGATIVE [facility] Comment on above: Performed By: #### U AMIC #### [facility] [address] [address] [address] Lazara Mott LEUKOCYTES Negative Normal NEGATIVE [facility] Comment on above: Performed By: #### U AMIC #### [facility] [address] [address] [address] Lazara Mott MUCOUS NONE SEEN Normal NONE SEEN [facility] Comment on above: Performed By: #### U AMIC #### [facility] [address] [address] [address] Lazara Mott Nitrite Ql (U) Negative Normal NEGATIVE [facility] Comment on above: Performed By: #### U AMIC #### [facility] [address] [address] [address] Lazara Mott pH (U) 8.5 [pH] Normal 5-[address] [facility] Comment on above: Performed By: #### U AMIC #### [facility] [address] [place] [address] Dr. Lazara Mott RBC 0-2 Normal 0-2 [facility] Comment on above: Performed By: #### U AMIC #### [facility] [address] [place] [address] Dr. Lazara Mott SPEC GRAVITY 1.015 Normal 1.005-<=1.025 [facility] Comment on above: Performed By: #### U AMIC #### [facility] [address] [place] [address] Dr. Lazara Mott UA PROTEIN Negative Normal NEGATIVE/ TRACE [facility] Comment on above: Performed By: #### U AMIC #### [facility] [address] [place] [address] Dr. Lazara Mott Urobilinogen Qn (U) 0.2 {Anum'U}/dL Normal 0.2 - 1.0 [facility] Comment on above: Performed By: #### U AMIC #### [facility] [address] [place] [address] Dr. Lazara Mott WBC 0-2 Abnormal NONE SEEN [facility] Comment on above: Performed By: #### U AMIC #### [facility] [address] [place] [address] Dr. Lazara Mott CBC AUTO DIFFon 08-20-2021 BASO # 0.1 103/ul Normal 0.0-0.1 [facility] Comment on above: Performed By: #### C MP, TSH, LIPID, FT3 #### [facility] [address] [place] [address] Dr. Lazara Mott Basophils/100 WBC (Bld) 1.1 % Normal 0.2-2.0 [facility] Comment on above: Performed By: #### C MP, TSH, LIPID, FT3 #### [facility] [address] [place] [address] Dr. Lazara Mott EO # 0.2 103/ul Normal 0.0-0.7 [facility] Comment on above: Performed By: #### C MP, TSH, LIPID, FT3 #### [facility] [address] [place] [address] Dr. Lazara Mott Eosinophils/100 WBC (Bld) 2.3 % Normal 0.9-7.0 [facility] Comment on above: Performed By: #### C MP, TSH, LIPID, FT3 #### [facility] [address] [place] [address] Dr. Lazara Mott Erythrocyte distribution width (RBC) [Ratio] 12.1 % Normal 11.0-15.0 [facility] Comment on above: Performed By: #### C MP, TSH, LIPID, FT3 #### [facility] [address] [place] [address] Dr. Lazara Mott Hematocrit (Bld) [Volume fraction] 42.4 % Normal 42.0-54.[address] [facility] Comment on above: Performed By: #### C MP, TSH, LIPID, FT3 #### [facility] [address] [place] [address] Dr. Lazara Mott Hemoglobin (Bld) [Mass/Vol] 14.5 g/dL Normal 14.0-18.[address] [facility] Comment on above: Performed By: #### C MP, TSH, LIPID, FT3 #### [facility] [address] [place] [address] Dr. Lazara Mott IG # 0.04 10e3/ul Critically high 0.00-0.03 [facility] Comment on above: Performed By: #### C MP, TSH, LIPID, FT3 #### [facility] [address] [place] [address] Dr. Lazara Mott IG % 0.5 % Normal 0.0-0.[address] [facility] Comment on above: Performed By: #### C MP, TSH, LIPID, FT3 #### [facility] [address] [place] [address] Dr. Lazara Mott LYMPH # 2.5 103/ul Normal 1.2-3.8 [facility] Comment on above: Performed By: #### C MP, TSH, LIPID, FT3 #### [facility] [address] [place] [address] Dr. Lazara Mott Lymphocytes/100 WBC (Bld) 31.3 % Normal 20.5-60.[address] [facility] Comment on above: Performed By: #### C MP, TSH, LIPID, FT3 #### [facility] [address] [place] [address] Dr. Lazara Mott MANUAL DIFF REQ NO Normal [facility] Comment on above: Performed By: #### C MP, TSH, LIPID, FT3 #### [facility] [address] [place] [address] Dr. Lazara Mott MCH (RBC) [Entitic mass] 30.7 pg Normal 25.9-34.[address] [facility] Comment on above: Performed By: #### C MP, TSH, LIPID, FT3 #### [facility] [address] [place] [address] Dr. Lazara Mott MCHC (RBC) [Mass/Vol] 34.2 g/dL Normal 29.9-35.2 [facility] Comment on above: Performed By: #### C MP, TSH, LIPID, FT3 #### [facility] [address] [place] [address] Dr. Lazara Mott MCV (RBC) [Entitic vol] 89.6 fL Normal 80.0-94.0 [facility] Comment on above: Performed By: #### C MP, TSH, LIPID, FT3 #### [facility] [address] [place] [address] Dr. Lazara Mott MONO # 0.8 103/ul Normal 0.3-0.8 [facility] Comment on above: Performed By: #### C MP, TSH, LIPID, FT3 #### [facility] [address] [place] [address] Dr. Lazara Mott Monocytes/100 WBC (Bld) 10.2 % Normal 1.7-12.[address] [facility] Comment on above: Performed By: #### C MP, TSH, LIPID, FT3 #### [facility] [address] [place] [address] Dr. Lazara Mott NEUT # 4.3 103/ul Normal 1.4-6.5 [facility] Comment on above: Performed By: #### C MP, TSH, LIPID, FT3 #### [facility] [address] [place] [address] Dr. Lazara Mott Neutrophils/100 WBC (Bld) 54.6 % Normal 43.0-75.0 [facility] Comment on above: Performed By: #### C MP, TSH, LIPID, FT3 #### [facility] [address] [place] [address] Dr. Lazara Mott Platelet mean volume (Bld) [Entitic vol] 9.3 fL Critically low 9.5-13.[address] [facility] Comment on above: Performed By: #### C MP, TSH, LIPID, FT3 #### [facility] [address] [place] [address] Dr. Lazara Mott PLT 294 103/ul Normal 150-[address] [facility] Comment on above: Performed By: #### C MP, TSH, LIPID, FT3 #### [facility] [address] [place] [address] Dr. Lazara Mott RBC 4.73 106/ul Normal 4.70-6.[address] [facility] Comment on above: Performed By: #### C MP, TSH, LIPID, FT3 #### [facility] [address] [place] [address] Dr. Lazara Mott WBC 7.9 103/ul Normal 4.0-11.[address] [facility] Comment on above: Performed By: #### C MP, TSH, LIPID, FT3 #### [facility] [address] [place] [address] Dr. Lazara Mott FREE T3on 08-20-2021 FREE T3 3.42 pg/mlL Normal 2.77-5.[address] [facility] Comment on above: Performed By: #### C MP, TSH, LIPID, FT3 #### [facility] [address] [place] [address] Dr. Lazara Mott FREE T4on 08-20-2021 Free T4 [Mass/Vol] 0.95 ng/dL Normal 0.78-2.19 [facility] Comment on above: Performed By: #### C MP, TSH, LIPID, [id number] #### [facility] [address] [place] [address] Dr. Lazara Mott LIPID PROFILEon 08-20-2021 CHOL-HDL RATIO NORM SEE BELOW Normal [facility] Comment on above: Result Comment: 3.3 - 4.4 LOW RISK 4.4 - 7.1 AVERAGE RISK 7.1 - 11.0 MODERATE RISK >11.0 HIGH RISK Performed By: #### C MP, TSH, LIPID, FT3 #### [facility] [address] [place] [address] Dr. Lazara Mott Cholesterol [Mass/Vol] 159 mg/dL Normal <=[address] [facility] Comment on above: Performed By: #### C MP, TSH, LIPID, FT3 #### [facility] [address] [address] [address] Lazara Mott Cholesterol in HDL [Mass/Vol] 41 mg/dL Normal [facility] Comment on above: Performed By: #### C MP, TSH, LIPID, FT3 #### [facility] [address] [address] [address] Lazara Mott Cholesterol in LDL [Mass/Vol] 94.0 mg/dL Normal [facility] Comment on above: Performed By: #### C MP, TSH, LIPID, FT3 #### [facility] [address] [address] [address] Lazara Mott Cholesterol.total/ Cholesterol in HDL [Mass ratio] 3.9 {ratio} Normal [facility] Comment on above: Performed By: #### C MP, TSH, LIPID, FT3 #### [facility] [address] [address] [address] Lazara Mott HDL NORMAL > or = 60 mg/dl - LO W CARDIOVASCULAR RISK <40 mg/dl - HIGH CARDIOVASCULAR RISK Normal [facility] Comment on above: Performed By: #### C MP, TSH, LIPID, FT3 #### [facility] [address] [address] [address] Lazara Mott LDL CALC NORMAL SEE BELOW Normal [facility] Comment on above: Result Comment: <100 mg/dl OPTIMAL 100 - 129 mg/dl NEAR OR ABOVE OPTIMAL 130 - 159 mg/dl BORDERLINE HIGH 160 - 189 mg/dl HIGH >190 mg/dl VERY HIGH Performed By: #### C MP, TSH, LIPID, FT3 #### [facility] [address] [address] [address] Lazara Mott Triglyceride [Mass/Vol] 120 mg/dL Normal <=150 [facility] Comment on above: Performed By: #### C MP, TSH, LIPID, FT3 #### [facility] [address] [address] [address] Lazara Mott VLDL CALC 24.0 mg/dL Normal [facility] Comment on above: Performed By: #### C MP, TSH, LIPID, FT3 #### [facility] [address] [place] [address] Dr. Lazara Mott PROF 14(COMP METB)on 022 Albumin [Mass/Vol] 4.1 g/dL Normal 3.5-5.0 [facility] Comment on above: Performed By: #### C MP, TSH, LIPID, FT3 #### [facility] [address] [place] [address] Dr. Lazara Mott Albumin/Globulin [Mass ratio] 1.2 {ratio} Normal [facility] Comment on above: Performed By: #### C MP, TSH, LIPID, FT3 #### [facility] [address] [place] [address] Dr. Lazara Mott ALP [Catalytic activity/Vol] 79 U/L Normal 38-[address] [facility] Comment on above: Performed By: #### C MP, TSH, LIPID, FT3 #### [facility] [address] [place] [address] Dr. Lazara Mott ALT [Catalytic activity/Vol] 76 U/L Critically high 21-[address] [facility] Comment on above: Performed By: #### C MP, TSH, LIPID, FT3 #### [facility] [address] [place] [address] Dr. Lazara Mott Anion gap [Moles/Vol] 10.6 mmol/L Normal [facility] Comment on above: Performed By: #### C MP, TSH, LIPID, FT3 #### [facility] [address] [place] [address] Dr. Lazara Mott AST [Catalytic activity/Vol] 21 U/L Normal 17-[address] [facility] Comment on above: Performed By: #### C MP, TSH, LIPID, FT3 #### [facility] [address] [place] [address] Dr. Lazara Mott Bilirubin [Mass/Vol] 0.4 mg/dL Normal 0.2-1.[address] [facility] Comment on above: Performed By: #### C MP, TSH, LIPID, FT3 #### [facility] [address] [place] [address] Dr. Lazara Mott Calcium [Mass/Vol] 9.0 mg/dL Normal 8.4-10.2 [facility] Comment on above: Performed By: #### C MP, TSH, LIPID, FT3 #### [facility] [address] [address] [address] Lazara Mott Chloride [Moles/Vol] 104 mmol/L Normal 98-107 [facility] Comment on above: Performed By: #### C MP, TSH, LIPID, FT3 #### [facility] [address] [address] [address] Lazara Mott CO2 [Moles/Vol] 27.1 mmol/L Normal 22.0-30.0 [facility] Comment on above: Performed By: #### C MP, TSH, LIPID, FT3 #### [facility] [address] [place] [address] Dr. Lazara Mott Creatinine [Mass/Vol] 1.13 mg/dL Normal 0.66-1.25 [facility] Comment on above: Performed By: #### C MP, TSH, LIPID, FT3 #### [facility] [address] [place] [address] Dr. Lazara Mott EGFR-AF TRISTANIAN >60 Normal >=60 [facility] Comment on above: Performed By: #### C MP, TSH, LIPID, FT3 #### [facility] [address] [place] [address] Dr. Lazara Mott EGFR-NON AF TRISTANIAN >60 Normal >=60 [facility] Comment on above: Performed By: #### C MP, TSH, LIPID, FT3 #### [facility] [address] [address] [address] Lazara Mott Globulin (S) [Mass/Vol] 3.3 g/dL Normal [facility] Comment on above: Performed By: #### C MP, TSH, LIPID, FT3 #### [facility] [address] [place] [address] Dr. Lazara Mott Glucose [Mass/Vol] 95 mg/dL Normal 74-106 [facility] Comment on above: Performed By: #### C MP, TSH, LIPID, FT3 #### [facility] [address] [place] [address] Dr. Lazara Mott Potassium [Moles/Vol] 3.7 mmol/L Normal 3.4-5.[address] [facility] Comment on above: Performed By: #### C MP, TSH, LIPID, FT3 #### [facility] [address] [place] [address] Dr. Lazara Mott Protein [Mass/Vol] 7.4 g/dL Normal 6.1-8.2 [facility] Comment on above: Performed By: #### C MP, TSH, LIPID, FT3 #### [facility] [address] [place] [address] Dr. Lazara Mott Sodium [Moles/Vol] 138 mmol/L Normal 137-145 [facility] Comment on above: Performed By: #### C MP, TSH, LIPID, FT3 #### [facility] [address] [place] [address] Dr. Lazara Mott Urea nitrogen [Mass/Vol] 13.0 mg/dL Normal 9.0-20.[address] [facility] Comment on above: Performed By: #### C MP, TSH, LIPID, FT3 #### [facility] [address] [place] [address] Dr. Lazara Mott Urea nitrogen/Creatinin e [Mass ratio] 11.5 mg/mg Normal [facility] Comment on above: Performed By: #### C MP, TSH, LIPID, FT3 #### [facility] [address] [place] [address] Dr. Lazara Mott TSHon 08-20-2021 TSH 2.329 uIU/mL Normal 0.470-4.680 [facility] Comment on above: Performed By: #### C MP, TSH, LIPID, FT3 #### [facility] [address] [place] [address] Dr. Lazara Mott TSH RANGE SEE BELOW Normal [facility] Comment on above: Result Comment: <0.3 4 UIU/ml HYPERTHYROID 0.34-5.60 UIU/ml EUTHYROID >5.60 UIU/ml HYPOTHYROID Performed By: #### C MP, TSH, LIPID, FT3 #### [facility] [address] [address] [address] Lazara Mott XR CHEST 2 Von [...] by: LISSETH SANTOS Date: 2021-08-20 10:[address] [facility] Vital Signs Date Time Vital Sign Value Performing Clinician [facility] 02-22-2025 07:52-0400 Body mass index (BMI) [Ratio] 25.5 kg/m2 Kwame Fleming [employer] Work Phone: [facility] 02-22-2025 07:52-0400 Body weight 85.28 kg Kwame Keyeston [employer] Work Phone: [facility] 02-22-2025 07:52-0400 Diastolic blood pressure 72 mm[Hg] Kwame Fleming [employer] Work Phone: [facility] 02-22-2025 07:52-0400 Heart rate 71 /min Kwame Fleming [employer] Work Phone: [facility] 02-22-2025 07:52-0400 Systolic blood pressure 100 mm[Hg] Kwame Fleming [employer] Work Phone: [facility] 02-03-2025 09:28-0400 Diastolic blood pressure 80 mm[Hg] Olena Gomez MD Work Phone: [facility] 02-03-2025 09:28-0400 Heart rate 71 /min Olena Gomez MD Work Phone: [facility] 02-03-2025 09:28-0400 SaO2% (BldA) [Mass fraction] 99 % Olena Gomez MD Work Phone: [facility] 02-03-2025 09:28-0400 Systolic blood pressure 119 mm[Hg] Olena Gomez MD Work Phone: [facility] 01-25-2025 07:56-0400 Body mass index (BMI) [Ratio] 26.04 kg/m2 Kwame Fleming PMHNP-BC Work Phone: [facility] 01-25-2025 07:56-0400 Body weight 87.09 kg Kwame Fleming PMHNP-BC Work Phone: [facility] 01-25-2025 07:56-0400 Diastolic blood pressure 72 mm[Hg] Kwame Fleming PMHNP-BC Work Phone: [facility] 01-25-2025 07:56-0400 Heart rate 67 /min Kwame Fleming PMHNP-BC Work Phone: [facility] 01-25-2025 07:56-0400 Systolic blood pressure 108 mm[Hg] Kwame Fleming PMHNP-BC Work Phone: [facility] 01-24-2025 08:32-0400 Body mass index (BMI) [Ratio] 26.04 kg/m2 Georgia Yogeshz [employer]PER[employer] Work Phone: [facility] 01-24-2025 08:32-0400 Body temperature 97.81 [degF] Georgia Yogeshz [employer]PER[employer]ENT Work Phone: [facility] 01-24-2025 08:32-0400 Body weight 87.09 kg Georgia Aichholz [employer]PER[employer]ENT Work Phone: [facility] 01-24-2025 08:32-0400 Diastolic blood pressure 76 mm[Hg] Georgia Aichholz [employer]PER[employer]ENDENT Work Phone: [facility] 01-24-2025 08:32-0400 Heart rate 71 /min Georgia Aicnicolaz [employer] SUPER[employer]ENT Work Phone: [facility] 01-24-2025 08:32-0400 Respiratory rate 18 /min Georgia Davey [employer] SUPER[employer]ENDENT Work Phone: [facility] 01-24-2025 08:32-0400 SaO2% (BldA) [Mass fraction] 97 % Georgia Davey [employer] SUPER[employer]ENDENT Work Phone: [facility] 01-24-2025 08:32-0400 Systolic blood pressure 118 mm[Hg] eGorgia Davey [employer]PER[employer]ENDENT Work Phone: [facility] 11-30-2024 07:49-0400 Body mass index (BMI) [Ratio] 26.99 kg/m2 Kwame Keyeston PMHNP-BC Work Phone: [facility] 11-30-2024 07:49-0400 Body weight 90.27 kg Kwame Fleming PMHNP-BC Work Phone: [facility] 11-30-2024 07:49-0400 Diastolic blood pressure 64 mm[Hg] Kwame Fleming PMHNP-BC Work Phone: [facility] 11-30-2024 07:49-0400 Heart rate 86 /min Kwame Fleming PMHNP-BC Work Phone: [facility] 11-30-2024 07:49-0400 Systolic blood pressure 116 mm[Hg] Kwame Fleming PMHNP-BC Work Phone: [facility] 11-09-2024 07:55-0400 Body mass index (BMI) [Ratio] 26.99 kg/m2 Kwame Fleming PMHNP-BC Work Phone: [facility] 11-09-2024 07:55-0400 Body weight 90.27 kg Kwame Fleming PMHNP-BC Work Phone: [facility] 11-09-2024 07:55-0400 Diastolic blood pressure 70 mm[Hg] Kwame Fleming PMHNP-BC Work Phone: [facility] 11-09-2024 07:55-0400 Heart rate 67 /min Kwame Fleming PMHNP-BC Work Phone: [facility] 11-09-2024 07:55-0400 Systolic blood pressure 110 mm[Hg] Kwame Fleming PMHNP-BC Work Phone: [facility] 10-19-2024 07:49-0400 Body mass index (BMI) [Ratio] 27.53 kg/m2 Kwame Fleming PMHNP-BC Work Phone: [facility] 10-19-2024 07:49-0400 Body weight 92.08 kg Kwame Fleming PMHNP-BC Work Phone: [facility] 10-19-2024 07:49-0400 Diastolic blood pressure 69 mm[Hg] Kwame Fleming PMHNP-BC Work Phone: [facility] 10-19-2024 07:49-0400 Heart rate 68 /min Kwame Fleming PMHNP-BC Work Phone: [facility] 10-19-2024 07:49-0400 Systolic blood pressure 112 mm[Hg] Kwame Fleming PMHNP-BC Work Phone: [facility] 09-14-2024 10:30-0500 Body mass index (BMI) [Ratio] 28.48 kg/m2 Kwame Fleming PMHNP-BC Work Phone: [facility] 09-14-2024 10:30-0500 Body weight 95.25 kg Kwame Fleming PMHNP-BC Work Phone: [facility] 09-14-2024 10:30-0500 Diastolic blood pressure 64 mm[Hg] Kwame Fleming PMHNP-BC Work Phone: [facility] 09-14-2024 10:30-0500 Heart rate 67 /min Kwame Fleming PMHNP-BC Work Phone: [facility] 09-14-2024 10:30-0500 Systolic blood pressure 110 mm[Hg] Kwame Fleming PMHNP-BC Work Phone: [facility] 08-10-2024 09:18-0500 Body mass index (BMI) [Ratio] 28.48 kg/m2 Kwame Fleming [employer]PER[employer]ENT Work Phone: [facility] 08-10-2024 09:18-0500 Body weight 95.25 kg Kwame Fleming [employer]PER[employer]ENT Work Phone: [facility] 08-10-2024 09:18-0500 Diastolic blood pressure 72 mm[Hg] Kwame Fleming [employer] SUPERINTENDENT Work Phone: [facility] 08-10-2024 09:18-0500 Heart rate 74 /min Kwame Fleming [employer]PER[employer]ENT Work Phone: [facility] 08-10-2024 09:18-0500 Systolic blood pressure 126 mm[Hg] Kwame Fleming [employer]PER[employer]ENT Work Phone: [facility] 07-19-2024 08:52-0500 Body mass index (BMI) [Ratio] 28.48 kg/m2 Kwame Fleming [employer]PER[employer]ENT Work Phone: [facility] 07-19-2024 08:52-0500 Body weight 95.25 kg Kwame Fleming [employer]PER[employer]ENT Work Phone: [facility] 07-19-2024 08:52-0500 Diastolic blood pressure 82 mm[Hg] Kwame Fleming [employer] SUPER[employer]ENDENT Work Phone: [facility] 07-19-2024 08:52-0500 Heart rate 68 /min Kwame Fleming [employer] SUPER[employer]ENDENT Work Phone: [facility] 07-19-2024 08:52-0500 Systolic blood pressure 112 mm[Hg] Kwame Fleming [employer]PER[employer]ENT Work Phone: [facility] 06-29-2024 08:48-0500 Body height 182.9 cm Jnkalee Brooks DO Work Phone: [facility] 06-29-2024 08:48-0500 Body mass index (BMI) [Ratio] 28.54 kg/m2 Jn Cecilia DO Work Phone: [facility] 06-29-2024 08:48-0500 Body weight 95.44 kg Jn Brooks DO Work Phone: [facility] 06-29-2024 08:48-0500 Diastolic blood pressure 68 mm[Hg] Jn Cecilia DO Work Phone: [facility] 06-29-2024 08:48-0500 Heart rate 78 /min Jn Cecilia DO Work Phone: [facility] 06-29-2024 08:48-0500 Respiratory rate 12 /min Jn Cecilia DO Work Phone: [facility] 06-29-2024 08:48-0500 SaO2% (BldA) [Mass fraction] 99 % Jn Brooks DO Work Phone: [facility] 06-29-2024 08:48-0500 Systolic blood pressure 122 mm[Hg] Jn Brooks DO Work Phone: [facility] 06-22-2024 08:14-0500 Body mass index (BMI) [Ratio] 28.48 kg/m2 Kwame Fleming [employer]PER[employer]ENT Work Phone: [facility] 06-22-2024 08:14-0500 Body weight 95.25 kg Kwame Fleming [employer]PER[employer]ENT Work Phone: [facility] 06-22-2024 08:14-0500 Diastolic blood pressure 82 mm[Hg] Kwame Fleming [employer]PER[employer]ENDENT Work Phone: [facility] 06-22-2024 08:14-0500 Heart rate 73 /min Kwame Fleming [employer] SUPER[employer]ENDENT Work Phone: [facility] 06-22-2024 08:14-0500 Systolic blood pressure 116 mm[Hg] Kwame Fleming [employer]PER[employer]ENDENT Work Phone: [facility] 06-13-2024 08:44-0500 Body height 182.9 cm Georgia Tamica [employer]PER[employer]ENDENT Work Phone: [facility] 06-13-2024 08:44-0500 Body mass index (BMI) [Ratio] 28.21 kg/m2 Georgia Davey [employer] Work Phone: [facility] 06-13-2024 08:44-0500 Body temperature 97.81 [degF] Georgia Davey [employer]ENT Work Phone: [facility] 06-13-2024 08:44-0500 Body weight 94.35 kg Georgia Davey [employer]PER[employer]ENT Work Phone: [facility] 06-13-2024 08:44-0500 Diastolic blood pressure 74 mm[Hg] Georgia Davey [employer]PER[employer]ENDENT Work Phone: [facility] 06-13-2024 08:44-0500 Heart rate 78 /min Georgia Davey [employer] SUPER[employer]ENDENT Work Phone: [facility] 06-13-2024 08:44-0500 Respiratory rate 20 /min Georgia Davey [employer] SUPER[employer]ENDENT Work Phone: [facility] 06-13-2024 08:44-0500 SaO2% (BldA) [Mass fraction] 96 % Georgia Davey [employer] SUPER[employer]ENDENT Work Phone: [facility] 06-13-2024 08:44-0500 Systolic blood pressure 110 mm[Hg] Georiga Davey [employer] SUPER[employer]ENDENT Work Phone: [facility] 06-02-2024 08:49-0500 Body mass index (BMI) [Ratio] 28.89 kg/m2 Jim Lees [employer] Work Phone: [facility] 06-02-2024 08:49-0500 Body weight 96.62 kg Jim Lees [employer]PER[employer]ENT Work Phone: [facility] 06-02-2024 08:49-0500 Diastolic blood pressure 83 mm[Hg] Jim Lees [employer] SUPER[employer]ENDENT Work Phone: [facility] 06-02-2024 08:49-0500 Heart rate 96 /min Jim Lees [employer] SUPER[employer]ENDENT Work Phone: [facility] 06-02-2024 08:49-0500 Systolic blood pressure 142 mm[Hg] Jim Lees [employer] SUPER[employer]ENDENT Work Phone: [facility] 05-05-2024 07:51-0400 Body height 182.9 cm Christopher Jamison DO Work Phone: [facility] 05-05-2024 07:51-0400 Body mass index (BMI) [Ratio] 28.86 kg/m2 Christopher Jamison DO Work Phone: [facility] 05-05-2024 07:51-0400 Body weight 96.53 kg Christopher Jamison DO Work Phone: [facility] 05-05-2024 07:51-0400 Diastolic blood pressure 82 mm[Hg] Christopher Jamison DO Work Phone: [facility] 05-05-2024 07:51-0400 Heart rate 84 /min Christopher Jamison DO Work Phone: [facility] 05-05-2024 07:51-0400 SaO2% (BldA) [Mass fraction] 97 % Christopher Jamison DO Work Phone: [facility] 05-05-2024 07:51-0400 Systolic blood pressure 134 mm[Hg] Christopher Jamison DO Work Phone: [facility] 04-19-2024 11:15-0400 Body height 182.9 cm Georgia Davey [employer] SUPER[employer]ENDENT Work Phone: [facility] 04-19-2024 11:15-0400 Body mass index (BMI) [Ratio] 28.48 kg/m2 Georgia Davey [employer] SUPER[employer]ENT Work Phone: [facility] 04-19-2024 11:15-0400 Body temperature 98.71 [degF] Georgia Davey [employer] SUPER[employer]ENDENT Work Phone: [facility] 04-19-2024 11:15-0400 Body weight 95.25 kg Georgia Davey [employer] SUPER[employer]ENDENT Work Phone: [facility] 04-19-2024 11:15-0400 Diastolic blood pressure 72 mm[Hg] Georgia Davey [employer] SUPER[employer]ENDENT Work Phone: [facility] 04-19-2024 11:15-0400 Heart rate 86 /min Georgia Davey [employer] SUPER[employer]ENDENT Work Phone: [facility] 04-19-2024 11:15-0400 Respiratory rate 18 /min Georgia Davey [employer] SUPER[employer]ENDENT Work Phone: [facility] 04-19-2024 11:15-0400 SaO2% (BldA) [Mass fraction] 97 % Georgia Davey [employer]PER[employer]ENT Work Phone: [facility] 04-19-2024 11:15-0400 Systolic blood pressure 110 mm[Hg] Georgia Davey [employer]PER[employer]ENT Work Phone: [facility] Healthcare Encounters Encounter Date Encounter Type Care Provider Facility Start: 03-29-2025 End: 03-29-2025 Orders Only Kwame Fleming [facility] [facility] Work Phone: [facility] [employer] Comment on above: Bipolar 2 disorder ( HCC); SAMRA (generalized anxiety disorder) Start: 03-29-2025 End: 03-29-2025 Office outpatient visit 15 minutes Kwame Fleming [facility] [facility] Comment on above: Bipolar 2 disorder ( HCC); SAMRA (generalized anxiety disorder) ; Tardive dyskinesia Start: 02-22-2025 End: 02-22-2025 Bamboo flowsheet Kwame Fleming HNP-BC [facility] Start: 02-22-2025 End: 02-22-2025 Bamboo flowsheet Kwame Fleming HNP-BC [facility] Start: 02-22-2025 End: 02-22-2025 Office outpatient visit 15 minutes Kwame Fleming [facility] Comment on above: Tardive dyskinesia ( Primary Dx); SAMRA (generalized anxiety disorder) ; Bipolar 2 disorder (HCC) Start: 02-22-2025 End: 02-22-2025 ambulatory KWAME FLEMING Not Available Start: 02-16-2025 End: 02-16-2025 OT/PT/Speech Visit Myriam Swann PT Work Phone: [facility] Comment on above: Functional movement disorder; Dyskinesia, tardive Start: 02-15-2025 End: 02-15-2025 Patient encounter procedure Stevo Garcia PSYD Work Phone: [facility] Comment on above: Adjustment disorder with mixed anxiety and depressed mood (Primary Dx); Functional movement disorder; Dyskinesia, tardive Start: 02-15-2025 End: 02-15-2025 ambulatory STEVO GARCIA Facility:[facility] Start: 02-03-2025 End: 02-03-2025 E-mail encounter from caregiver Willow Wilkins MD Work Phone: [facility] Start: 02-03-2025 End: 02-03-2025 Office outpatient new 45 minutes Olena Gomez MD Work Phone: [facility] Comment on above: Functional movement disorder (Primary Dx); Dyskinesia, tardive; Drug-induced parkinsonism (HCC) Start: 02-03-2025 End: 02-03-2025 ambulatory Willow Wilkins MD Work Phone: [facility] Start: 01-25-2025 End: 01-25-2025 Office outpatient visit 25 minutes Kwame Fleming PMHNP-BC Work Phone: [facility] Comment on above: Current episode of m ajor depressive disorder without prior episode, unspecified depression episode severity ; Bipolar 2 disorder (HCC); SAMRA (generalized anxiety disorder) ; Tremor; Tardive dyskinesia Start: 01-25-2025 End: 01-25-2025 ambulatory KWAME FLEMING Not Available Start: 01-24-2025 End: 01-24-2025 Bamboo flowsheet Georgia Davey [employer] SUPER[employer]ENDENT Work Phone: [facility] Start: 01-24-2025 End: 01-24-2025 Bamboo flowsheet Georgia Schraderholz [employer] SUPER[employer]ENDENT Work Phone: [facility] Start: 01-24-2025 End: 01-24-2025 Office outpatient visit 25 minutes Georgia Schraderholz [employer] SUPER[employer]ENDENT Work Phone: [facility] Comment on above: Weight loss, uninten tional (Primary Dx); Tardive dyskinesia; Mixed bipolar affective disorder, mild (HCC) Start: 01-24-2025 End: 01-24-2025 ambulatory GEORGIA AICHHOLZ Not Available Start: 12-08-2024 End: 12-08-2024 ambulatory GEORGIA AICHHOLZ Not Available Start: 11-30-2024 End: 11-30-2024 Bamboo flowsheet Kwame Fleming PMHNP-BC Work Phone: [facility] Start: 11-30-2024 End: 11-30-2024 Bamboo flowsheet Kwame Fleming PMHNP-BC Work Phone: [facility] Start: 11-30-2024 End: 11-30-2024 Office outpatient visit 25 minutes Kwame Fleming PMHNP-BC Work Phone: [facility] Comment on above: Bipolar 2 disorder ( CMS/HCC); SAMRA (generalized anxiety disorder) (CMS/HCC); Tremor; Tardive dyskinesia; Current episode of major depressive disorder without prior episode, unspecified depression episode severity (CMS/HCC) Start: 11-30-2024 End: 11-30-2024 ambulatory KWAME FLEMING Not Available Start: 11-09-2024 End: 11-09-2024 Bamboo flowsheet Kwame Fleming PMHNP-BC Work Phone: [facility] Start: 11-09-2024 End: 11-09-2024 Bamboo flowsheet Kwame Fleming PMHNP-BC Work Phone: [facility] Start: 11-09-2024 End: 11-09-2024 Office outpatient visit 25 minutes Kwame Fleming PMHNP-BC Work Phone: [facility] Comment on above: Bipolar 2 disorder ( CMS/HCC); SAMRA (generalized anxiety disorder) (CMS/HCC); Tardive dyskinesia; Tremor Start: 11-09-2024 End: 11-09-2024 ambulatory KWAME FLEMING Not Available Start: 10-19-2024 End: 10-19-2024 Bamboo flowsheet Kwame Fleming PMHNP-BC Work Phone: [facility] Start: 10-19-2024 End: 10-19-2024 Bamboo flowsheet Kwame Fleming PMHNP-BC Work Phone: [facility] Start: 10-19-2024 End: 10-19-2024 Office outpatient visit 25 minutes Kwame Fleming PMHNP-BC Work Phone: [facility] Comment on above: Tardive dyskinesia; Bipolar 2 disorder (CMS/HCC); SAMRA (generalized anxiety disorder) (CMS/HCC) Start: 10-19-2024 End: 10-19-2024 ambulatory KWAME FLEMING Not Available Start: 10-17-2024 End: 10-17-2024 Telephone encounter Kwame Fleming PMHNP-BC Work Phone: [facility] Comment on above: Advice Only Start: 10-05-2024 End: 10-05-2024 ambulatory KWAME FLEMING Not Available Start: 09-14-2024 End: 09-14-2024 Bamboo flowsheet Kwame Fleming PMHNP-BC Work Phone: [facility] Start: 09-14-2024 End: 09-14-2024 Bamboo flowsheet Kwame Fleming PMHNP-BC Work Phone: [facility] Start: 09-14-2024 End: 09-14-2024 Office outpatient visit 25 minutes Kwame Fleming PMHNP-BC Work Phone: [facility] Comment on above: Bipolar 2 disorder ( CMS/HCC); Tardive dyskinesia; Tremor Start: 09-14-2024 End: 09-14-2024 ambulatory KWAME FLEMING Not Available Start: 08-22-2024 End: 08-22-2024 Bamboo flowsheet Armen Silvai WIRELESS OPERATOR [facility] Start: 08-22-2024 End: 08-22-2024 Bamboo flowsheet Armen Silvai WIRELESS OPERATOR [facility] Start: 08-22-2024 End: 08-22-2024 ambulatory ARMEN SILVAI Not Available Start: 08-10-2024 End: 08-10-2024 Bamboo flowsheet Kwame Fleming POWER AND RECOVERY SUPERINTENDENT Work Phone: [facility] Start: 08-10-2024 End: 08-10-2024 Bamboo flowsheet Kwame Fleming POWER AND RECOVERY SUPERINTENDENT Work Phone: [facility] Start: 08-10-2024 End: 08-10-2024 Office outpatient visit 25 minutes Kwame Fleming POWER AND RECOVERY SUPERINTENDENT Work Phone: [facility] Comment on above: Bipolar 2 disorder ( CMS/HCC); Tardive dyskinesia Start: 08-10-2024 End: 08-10-2024 ambulatory KWAME FLEMING Not Available Start: 07-19-2024 End: 07-19-2024 Bamboo flowsheet Kwame Fleming POWER AND RECOVERY SUPERINTENDENT Work Phone: [facility] Start: 07-19-2024 End: 07-19-2024 Bamboo flowsheet Kwame Fleming POWER AND RECOVERY SUPERINTENDENT Work Phone: [facility] Start: 07-19-2024 End: 07-19-2024 Office outpatient visit 25 minutes Kwame Fleming POWER AND RECOVERY SUPERINTENDENT Work Phone: [facility] Comment on above: Bipolar 2 disorder ( CMS/HCC); Tardive dyskinesia Start: 07-19-2024 End: 07-19-2024 ambulatory KWAME FLEMING Not Available Start: 06-29-2024 End: 06-29-2024 Bamboo flowsheet Jn Cecilia DO Work Phone: [facility] Start: 06-29-2024 End: 06-29-2024 Bamboo flowsheet Jn Cecilia DO Work Phone: [facility] Start: 06-29-2024 End: 06-29-2024 Office outpatient new 45 minutes Jn Brooks DO Work Phone: [facility] Comment on above: Rectal bleeding ([place] flor Dx) Start: 06-29-2024 End: 06-29-2024 ambulatory JN BROOKS Not Available Start: 06-22-2024 End: 06-22-2024 Bamboo flowsheet Kwame Fleming POWER AND RECOVERY SUPERINTENDENT Work Phone: [facility] Start: 06-22-2024 End: 06-22-2024 Bamboo flowsheet Kwame Fleming POWER AND RECOVERY SUPERINTENDENT Work Phone: [facility] Start: 06-22-2024 End: 06-22-2024 Office outpatient visit 40 minutes Kwame Fleming POWER AND RECOVERY SUPERINTENDENT Work Phone: [facility] Comment on above: Bipolar 2 disorder ( CMS/HCC); Tardive dyskinesia Start: 06-22-2024 End: 06-22-2024 ambulatory KWAME FLEMING Not Available Start: 06-13-2024 End: 06-13-2024 Bamboo flowsheet Georgia Davey POWER AND RECOVERY SUPERINTENDENT Work Phone: [facility] Start: 06-13-2024 End: 06-13-2024 Bamboo flowsheet Georgia Davey POWER AND RECOVERY SUPERINTENDENT Work Phone: [facility] Start: 06-13-2024 End: 11-30-2024 Patient encounter status Georgia Davey POWER AND RECOVERY SUPERINTENDENT Work Phone: [facility] Start: 06-13-2024 End: 06-13-2024 Periodic preventive med est patient 40-64yrs Georgia Davey POWER AND RECOVERY SUPERINTENDENT Work Phone: [facility] Comment on above: Encounter for wellne ss examination in adult (Primary Dx); Tremor, unspecified; Overweight (BMI 25.0-29.9); Bipolar 1 disorder (CMS/HCC); Rash Start: 06-13-2024 End: 06-13-2024 ambulatory GEORGIA DAVEY Not Available Start: 06-02-2024 End: 06-02-2024 Bamboo flowsheet Jim Lees POWER AND RECOVERY SUPERINTENDENT Work Phone: [facility] [place] [facility] Start: 06-02-2024 End: 06-02-2024 Bamboo flowsheet Jim Lees POWER AND RECOVERY SUPERINTENDENT Work Phone: [facility] [place] [facility] Start: 06-02-2024 End: 06-02-2024 ambulatory JIM LEES Not Available Start: 06-02-2024 End: 06-02-2024 Office outpatient visit 25 minutes Jim Lees POWER AND RECOVERY SUPERINTENDENT Work Phone: [facility] [place] [facility] Comment on above: Tardive dyskinesia ( Primary Dx); Tremor, unspecified Start: 05-05-2024 End: 05-05-2024 Bamboo flowsheet Christopher Jamison DO Work Phone: [facility] [place] [facility] Start: 05-05-2024 End: 05-05-2024 Bamboo flowsheet Christopher Jamison DO Work Phone: [facility] [place] [facility] Start: 05-05-2024 End: 05-05-2024 Office outpatient new 45 minutes Christopher Jamison DO Work Phone: [facility] [place] [facility] Comment on above: Ataxia (Primary Dx); Tremor, unspecified; Tardive dyskinesia Start: 05-05-2024 End: 05-05-2024 ambulatory CHRISTOPHER JAMISON Not Available Start: 04-19-2024 End: 04-19-2024 Bamboo flowsheet Georgia Davey POWER AND RECOVERY SUPERINTENDENT Work Phone: [facility] Start: 04-19-2024 End: 04-19-2024 Bamboo flowsheet Georgia Tamica POWER AND RECOVERY SUPERINTENDENT Work Phone: [facility] Start: 04-19-2024 End: 04-19-2024 Office outpatient visit 25 minutes Georgia Davey POWER AND RECOVERY SUPERINTENDENT Work Phone: [facility] Comment on above: Tremor, unspecified (Primary Dx); Overweight (BMI 25.0-29.9) Start: 04-19-2024 End: 04-19-2024 ambulatory GEORGIA DAVEY Not Available Start: 09-02-2023 End: 09-02-2023 ambulatory Mikey Wilson PT Work Phone: [facility] Comment on above: Internal derangement of right shoulder (Primary Dx); S/P arthroscopy of right shoulder Start: 08-31-2023 Bamboo flowsheet Mikey radford PT Work Phone: [facility] Start: 08-31-2023 Bamboo flowsheet Mikey radford PT Work Phone: [facility] Start: 08-31-2023 End: 08-31-2023 ambulatory Mikey Wilson PT Work Phone: [facility] Comment on above: Internal derangement of right shoulder (Primary Dx); S/P arthroscopy of right shoulder Start: 08-28-2023 End: 08-28-2023 ambulatory Gaudencio Solomon DAMPER MAKER [facility] Comment on above: Internal derangement of right shoulder (Primary Dx); S/P arthroscopy of right shoulder Start: 08-26-2023 Bamboo flowsheet Gaudencio Juanito PT A [facility] Start: 08-26-2023 Bamboo flowsheet Gaudencio Juanito PT A [facility] Start: 08-26-2023 End: 08-26-2023 ambulatory Gaudenciolenore Solomon DAMPER MAKER [facility] Comment on above: Internal derangement of right shoulder (Primary Dx); S/P arthroscopy of right shoulder Start: 08-24-2023 Bamboo flowsheet Desire Maza P TA [facility] Start: 08-24-2023 Bamboo flowsheet Desire Maza P TA [facility] Start: 08-24-2023 End: 08-24-2023 ambulatory Desire Maza DAMPER MAKER [facility] Comment on above: Internal derangement of right shoulder (Primary Dx); S/P arthroscopy of right shoulder Start: 03-16-2023 Chart abstracting Gio BLOOD Work Phone: [facility] Start: 04-25-2022 Encounter for genera l adult medical examination without abnormal findings MADALYN DAVEY [facility] Start: 04-23-2022 End: 04-24-2022 ambulatory MADALYN DAVEY Facility:[facility]1 Start: 04-23-2022 End: 04-24-2022 Encounter for general adult medical examination without abnormal findings MADALYN DAVEY Facility:[facility] Start: 10-07-2021 ambulatory MADALYN DAVEY Facil ity:[facility]1 Start: 08-30-2021 End: 08-31-2021 ambulatory MADALYN DAVEY Facility:[facility] Start: 08-20-2021 End: 08-21-2021 ambulatory MADALYN DAVEY Facility:[facility]1 Procedures Date Procedure Procedure Detail Performing Clinician Start: 08-22-2024 End: 08-22-2024 Psychiatric diagnostic evaluation Bipolar 2 disorder (CMS/HCC) Armen Hernández LPC Comment on above: Bipolar 2 disorder ( CMS/HCC) Plan of Treatment Date Care Activity Detail Author Start: 08-07-2025 End: 08-07-2025 Patient encounter procedure 08/07/2025 3:30 PM EST Office Visit [facility] [address] [facility] [address] [place] [address] Kwame Fleming [facility] [address] [place] [address] [facility] Start: 06-06-2025 End: 06-06-2025 Patient encounter procedure 06/06/2025 9:00 AM EST Office Visit [facility] [address] [address] Sudha Soto, CROW.CONCRETE PUMP OPERATOR HELPER [address] [address] follow up [facility] Comment on above: follow up Start: 04-10-2025 End: 04-10-2025 Patient encounter procedure 04/10/2025 9:40 AM EDT Office Visit [facility] [address] [place] [phone] Georgia Davey, JA [address] [place] [address] [facility] Start: 03-29-2025 End: 03-29-2025 Patient encounter procedure 03/29/2025 8:00 AM EDT Office Visit [facility] [place] [facility] [address] [facility] [address] [place] [address] Kwame Fleming HNP-BC [address] [facility] [address] [place] [address] [facility] Start: 03-20-2025 Influenza vaccination Influenza Vacc ine (#1) [facility] Start: 02-22-2025 End: 02-22-2025 Patient encounter procedure 02/22/2025 8:00 AM EDT Office Visit [facility] [place] [facility] [address] [facility] [address] [place] [address] Kwame Fleming HNP-BC [address] [facility] [address] [place] [address] Arrived [facility] Comment on above: Arrived Start: 02-20-2025 End: 02-20-2025 Patient encounter procedure 02/20/2025 8:00 AM EDT Office Visit [facility] [address] [facility] [address] [place] [address] Kwame Fleming HNP-BC [address] [facility] [address] [place] [address] [facility] Start: 02-16-2025 End: 02-16-2025 OT/PT/Speech Visit 02/16/2025 7:45 AM EDT OT/PT/Speech Visit [facility] [address] [place] [address] [place] [address] [place] [address] 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]; Dyskinesia, tardive [G24.01] [facility] Comment on above: FND=Functional movem ent disorder [G25.9]; Dyskinesia, tardive [G24.01] Start: 02-15-2025 End: 02-15-2025 Patient encounter procedure 02/15/2025 8:00 AM EDT Office Visit [facility] [address] [place] [address] [facility] [address] [place] [address] 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]; Dyskinesia, tardive [G24.01] [facility] Comment on above: 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]; Dyskinesia, tardive [G24.01] Start: 01-25-2025 End: 01-25-2025 Patient encounter procedure 01/25/2025 8:00 AM EDT Office Visit [facility] [address] [facility] [address] [place] [address] Kwame Fleming, [facility]- [address] [facility] [address] [place] [address] [facility] Start: 01-24-2025 End: 01-24-2025 Patient encounter procedure 01/24/2025 8:40 AM EDT Office Visit [facility] [address] [place] [address] Georgia Davey NP [address] [place] [phone] Weight loss, unintentional (Primary Dx) [facility] Comment on above: Weight loss, uninten tional (Primary Dx) Start: 12-08-2024 End: 12-08-2024 Patient encounter procedure 12/08/2024 8:40 AM EDT [facility] [address] [place] [address] Georgia Davey, JA [address] [place] [address] [facility] Start: 11-30-2024 End: 11-30-2024 Patient encounter procedure [facility] Comment on above: Bipolar 2 disorder ( CMS/HCC); SAMRA (generalized anxiety disorder) (CMS/HCC); Tremor; Tardive dyskinesia Start: 11-09-2024 End: 11-09-2024 Patient encounter procedure [facility] Comment on above: Bipolar 2 disorder ( CMS/HCC); SAMRA (generalized anxiety disorder) (CMS/HCC); Tardive dyskinesia; Tremor Start: 11-02-2024 End: 11-02-2024 Patient encounter procedure 11/02/2024 8:00 AM EDT Office Visit [facility] [address] [facility] [address] [place] [address] [facility] [address] [facility] [address] [place] [address] [facility] Start: 10-19-2024 End: 10-19-2024 Patient encounter procedure [facility] Comment on above: Arrived Start: 10-05-2024 End: 10-05-2024 Patient encounter procedure 10/05/2024 8:00 AM EDT Office Visit [facility] [address] [facility] [address] [place] [address] [facility] [address] [facility] [address] [place] [address] [facility] Start: 09-28-2024 End: 09-28-2024 Social Work 09/28/2024 9:30 AM EDT Social Work [facility] [address] [place] [address] Armen Hernández LPC [facility] Start: 09-14-2024 End: 09-14-2024 Patient encounter procedure 09/14/2024 10:30 AM EST Office Visit [facility] [address] [place] [address] Kwame Fleming, PMHNP-BC [address] [place] [address] Bipolar 2 disorder (CMS/HCC); Tardive dyskinesia; Tremor [facility] Comment on above: Bipolar 2 disorder ( CMS/HCC); Tardive dyskinesia; Tremor Start: 09-07-2024 End: 09-07-2024 Patient encounter procedure 09/07/2024 10:00 AM EST Office Visit [facility] [address] [place] [address] Kwame Fleming, POWER AND RECOVERY SUPERINTENDENT [address] [place] [address] [facility] Start: 08-22-2024 End: 08-22-2024 Social Work [facility] Comment on above: Arrived Start: 08-10-2024 End: 08-10-2024 Patient encounter procedure [facility] Comment on above: Bipolar 2 disorder ( CMS/HCC); Tardive dyskinesia Start: 07-25-2024 End: 07-25-2024 Social Work 07/25/2024 9:30 AM EST Social Work [facility] [address] [place] [address] Armen Hernández LPC [facility] Start: 07-19-2024 End: 07-19-2024 Patient encounter procedure [facility] Comment on above: Bipolar 2 disorder ( CMS/HCC); Tardive dyskinesia Start: 06-29-2024 End: 06-29-2024 Patient encounter procedure [facility] Comment on above: Arrived Start: 06-22-2024 End: 06-22-2024 Patient encounter procedure [facility] Comment on above: Tardive dyskinesia; Tremor, unspecified Start: 06-13-2024 End: 06-13-2025 CBC W Auto Differential panel - Blood CBC and differential Lab Routine Encounter for wellness examination in adult Expected: 06/13/2024 (Approximate), Expires: 06/13/2025 [facility] Work Phone: Comment on above: Expected: 06/13/2024 (Approximate), Expires: 06/13/2025 Start: 06-13-2024 End: 06-13-2025 Comprehensive metabolic 2000 panel - Serum or Plasma Comprehensive metabolic panel Lab Routine Encounter for wellness examination in adult Expected: 06/13/2024 (Approximate), Expires: 06/13/2025 [facility] Comment on above: Expected: 06/13/2024 (Approximate), Expires: 06/13/2025 Start: 06-13-2024 End: 06-13-2025 Lipid 1996 panel - Serum or Plasma Lipid panel Lab Routine Encounter for wellness examination in adult Expected: 06/13/2024 (Approximate), Expires: 06/13/2025 [facility] Comment on above: Expected: 06/13/2024 (Approximate), Expires: 06/13/2025 Start: 06-13-2024 End: 06-13-2025 Thyrotropin [Units/volume] in Serum or Plasma TSH Lab Routine Encounter for wellness examination in adult Expected: 06/13/2024 (Approximate), Expires: 06/13/2025 [facility] Comment on above: Expected: 06/13/2024 (Approximate), Expires: 06/13/2025 Start: 06-13-2024 End: 06-13-2025 Urinalysis complete panel - Urine Urinalysis with reflex microscopic (clean catch) Lab Routine Encounter for wellness examination in adult Expected: 06/13/2024 (Approximate), Expires: 06/13/2025 [facility] Comment on above: Expected: 06/13/2024 (Approximate), Expires: 06/13/2025 Start: 06-13-2024 End: 06-13-2024 Patient encounter procedure [facility] Comment on above: [facility] in adult (Primary Dx); Tremor, unspecified; Overweight (BMI 25.0-29.9); Bipolar 1 disorder (CMS/HCC) Start: 06-02-2024 End: 06-02-2024 Patient encounter procedure 06/02/2024 8:40 AM EST Office Visit [facility] [place] [facility] [address] [place] [phone] Jim Lees NP [address] [place], [place] [id number] [facility] [place] [facility] Start: 05-05-2024 End: 05-05-2025 MR Brain WO and W contrast IV MR brain w and wo contrast routine Imaging Routine Ataxia Expected: 05/05/2024, Expires: 05/05/2025 [facility] Work Phone: Comment on above: Expected: 05/05/2024 , Expires: 05/05/2025 Start: 05-05-2024 End: 05-05-2024 Patient encounter procedure 05/05/2024 8:00 AM EDT Office Visit [facility] [place] [facility] [address] [place] [address] Nadia Swift DO [address] [place], [place] [id number] Tremor, unspecified [facility] [place] [facility] Comment on above: Tremor, unspecified Start: 04-19-2024 End: 04-19-2024 Patient encounter procedure 04/19/2024 11:00 AM EDT Office Visit [facility] [address] [place] [address] Georgia Davey NP [address] [place] [phone] Arrived [facility] Comment on above: Arrived Start: 03-20-2024 Covid-19 Vaccine ( season) Covid-19 Vaccine (2023- season) [facility] Start: 09-11-2023 End: 09-11-2023 Patient encounter procedure 09/11/2023 10:45 AM EST Office Visit [facility] [address] [place] [address] Gio Nova, PA [address] [place] [address] [facility] Start: 09-11-2023 End: 09-11-2023 ambulatory 09/11/2023 9:30 AM EST Treatment [facility] [address] [place] [address] Gaudencio Solomon PTA [facility] Start: 09-09-2023 End: 09-09-2023 ambulatory 09/09/2023 11:00 AM EST Treatment [facility] [address] [place] [address] Mikey Wilson, PT [address] [place] [address] [facility] Start: 09-08-2023 End: 09-08-2023 Patient encounter procedure 09/08/2023 9:00 AM EST Office Visit [facility] [address] [place] [address] Georgia Davey, JA [address] [place] [address] [facility] Start: 09-07-2023 End: 09-07-2023 ambulatory [facility] Start: 09-07-2023 End: 09-07-2023 Patient encounter procedure 09/07/2023 10:00 AM EST Office Visit [facility] [address] [place] [address] Gio Nova, PA [address] [place] [address] [facility] Start: 09-04-2023 End: 09-04-2023 ambulatory 09/04/2023 11:00 AM EST Treatment [facility] [address] [facility] [address] [place] [address] Gaudencio Solomon PTA [facility] Start: 09-02-2023 End: 09-02-2023 ambulatory [facility] Start: 08-31-2023 End: 08-31-2023 ambulatory [facility] Comment on above: Arrived Start: 08-28-2023 End: 08-28-2023 ambulatory 08/28/2023 11:00 AM EST Treatment [facility] [address] [facility] [address] [place] [address] Gaudencio Solomon PTA [facility] Start: 08-26-2023 End: 08-26-2023 ambulatory [facility] Comment on above: Internal derangement of right shoulder (Primary Dx); S/P arthroscopy of right shoulder Start: 08-24-2023 End: 08-24-2023 ambulatory 08/24/2023 10:00 AM EST Treatment [facility] [address] [facility] [address] [place] [address] Desire Maza PTA Arrived [facility] Comment on above: Arrived Start: 03-20-2023 Influenza vaccination Influenza Vacc ine (#1) [facility] Start: 2017 Lipid panel Lipid Screening [facility] Start: 2009 HPV Vaccine (1 - 3-d ose SCDM series) HPV Vaccine (1 - 3-dose SCDM series) [facility] Start: 2001 Hepatitis B Vaccine (1 of 3 - 19+ 3-dose series) Hepatitis B Vaccine (1 of 3 - 19+ 3-dose series) [facility] Start: 2001 Urine microalbumin profile DTaP,Tdap,Td Vaccine (1 - Tdap) [facility] Start: 2000 Anxiety Screening Anxiety Screening [facility] Start: 2000 Depression Screening Depression Scre ening [facility] Start: 2000 Hepatitis C screening Hepatitis C Ct jenaro [facility] Start: 2000 HIV screening HIV Screening [facility] Payers Date Payer Category Payer Private Health Insurance [id number] 2022 Unknown [employer] [id number] 2022-Present [phone] [address] [address] [place] [address] [id number] 2022 Unknown [id number] 1982 Unknown [id number] 2.16840.1.699081.3.579. 2.593 1982 Unknown [id number] 2.16840.1.442470.3.579. 2.593 1982 Unknown [id number] 2.16840.1.723590.3.579. 2.593 1982 Unknown [id number] 2.16840.1.579228.3.579. 2.593 1982 Unknown [id number] 2.16840.1.441741.3.579. 2.9 1982 Unknown [id number] 2.16840.1.162145.3.579. 2.1258 1982 Unknown [id number] 2.16840.1.585779.3.579. 2.1259 1982 Unknown [id number] 2.16.840.1.864512.3.579. 2.1259 1982 Unknown [id number] 2.16.840.1.566499.3.579. 2.9 1982 Unknown [id number] 2.16.840.1.332874.3.579. 2.1259 1982 Unknown [id number] 2.16840.1.780380.3.579. 2.1258 1982 Unknown [id number] 2.16.840.1.970725.3.579. 2.1258 1982 Unknown [id number] 2.16.840.1.741654.3.579. 2.1258 1982 Unknown [id number] 2.16.840.1.462577.3.579. 2.1258 1982 Unknown [id number] 2.16.840.1.119061.3.579. 2.1258 1982 Unknown [id number] 2.16.840.1.570638.3.579. 2.1258 1982 Unknown [id number] 2.16.840.1.457189.3.579. 2.1258 1982 Unknown [id number] 2.16.840.1.666423.3.579. 2.1258 1982 Unknown [id number] 2.16.840.1.797264.3.579. 2.1258 1982 Unknown [id number] 2.16.840.1.754016.3.579. 2.1258 1982 Unknown [id number] 2.16.840.1.812624.3.579. 2.1258 1982 Unknown [id number] 2.16.840.1.611222.3.579. 2.9 1959 Self-pay [id number] 1959 Unknown [id number] Social History Date Type Detail Facility Start: 03-16-2023 End: 06-22-2024 Tobacco smoking status [facility] Never smoked tobacco [facility] Start: 08-07-2023 End: 02-03-2025 Alcohol intake Current drinker of alcohol (finding) [facility] Start: 05-27-2023 End: 09-07-2023 History of [...] on file [facility] Start: 03-16-2023 End: 02-22-2025 Alcohol intake Ex-drinker (finding) [facility] Start: 05-17-2023 End: 05-27-2023 Exposure to SARS-CoV-2 (event) Not sure [facility] Start: 11-29-2024 Do you belong to any clubs or organizations such as caodaism groups, unions, fraNexgence or athletic groups, or school groups? Patient [...] or rent on time? No [facility] Start: 06-22-2024 End: 02-03-2025 Tobacco use and exposure Smokeless tobacco non-user [facility] Start: 06-22-2024 Education 15 [facility] Start: 06-22-2024 Alcohol Comment caffiene- 3 sw eet tea and occasion pop [facility] Start: 02-03-2025 Alcohol Comment [facility] Clinical Notes 08-31-2023 to 03-29-2025 Kwame Fleming, [facility] - 03/29/2025 8:20 AM Eduardo Fleming, [facility]- - 03/29/2025 8:00 AM Eduardo Fleming, [facility] - 02/22/2025 8:00 AM Myriam Gorman, PT - 02/16/2025 7:49 AM EDT Note Date & Type Note Facility 03-29-2025 History of Presen t illness Narrative Rx for Ingrezza resent to [facility] documented in this encounter [facility] 03-29-2025 History of Presen t illness Narrative Images from the original note were not included. HPI: Tahira Ivey is a 44 y.o. male with a history of bipolar affective disorder, MDD, SAMRA, tremors, and tardive dyskinesia. Patient is here today for follow-up via telehealth. Location of patient: Home; located in [place] Location of provider: Office; located in [place], [place] Patient seen via: [facility]; audio and video utilized Reason for televisit: Transportation issues; Convenience; Access to care Total time spent with patient: 13 minutes Did patient gave verbal consent for today's visit? Yes No medication changes were made at patient's last visit on 02/22/25. He states that he has not seen any improvement in his movements since being on the 60 mg of Ingrezza. He is wanting to increase to the next dose to see if this will help. He continues to have weight loss and reports his most recent weight was 182 lbs. This report brings his weight loss to around 28 lbs since August. He had previous lab work completed through PCP in November that was unremarkable. He is scheduled to get a CT of his abdomen and pelvis tomorrow, which was also ordered by his PCP. He also reports excessive fatigue for several months. He still has stress with his job but does not feel that it is significant enough to contribute to his symptoms. He feels that his Lamictal and Prozac are helping his mood. SUBJECTIVE: PAST MEDICAL HISTORY: Past Medical History: Diagnosis Date Arthralgia Asymptomatic microscopic hematuria Bipolar disorder (HCC) Bursitis of shoulder, right Cyst of tendon sheath Dyspnea 09/08/2023 Family history of multiple sclerosis Hx of psychiatric hospitalization [facility] [place] in his 20s Lumbar back pain Tardive dyskinesia Tremor MEDICATIONS: Current Outpatient Medications Medication Instructions FLUoxetine (PROZAC) 20 mg, Oral, Daily lamoTRIgine (LAMICTAL) 50 mg, Oral, Daily Valbenazine Tosylate (Ingrezza) 60 MG capsule 1 capsule, Oral, Daily in the morning ALLERGIES: Allergies Allergen Reactions Morphine Hives Severe itching Penicillins Rash SURGICAL HISTORY: Past Surgical History: Procedure Laterality Date CHOLECYSTECTOMY CYST REMOVAL Bilateral breast CYST REMOVAL back of neck SHOULDER ARTHROSCOPY Right 07/31/2023 DR JANE VASECTOMY WISDOM TOOTH EXTRACTION Right 11/2023 right upper FAMILY HISTORY: Family History Problem Relation Name Age of Onset Vision loss Mother Sandra valencia Multiple sclerosis Father Juve Ivey Vision loss Father Juve Ivey Diabetes Brother Ari Ivey COPD Other mothers side Rheum arthritis Other mothers side Fibromyalgia Other mothers side Arthritis Maternal Grandmother Brinda Oro Hearing loss Maternal Grandmother Brinda Oro SOCIAL HISTORY: Social History Tobacco Use Smoking status: Never Smokeless tobacco: Never Vaping Use Vaping status: Never Used Substance Use Topics Alcohol use: Not Currently Comment: caffiene- 3 sweet tea and occasion pop Drug use: Never Patient Care Team: Montrell Serrano MD as PCP - General (Family Medicine) Georgia Davey NP as Referring Physician (Family Medicine) JESSICA Worley as Nurse Practitioner (Behavioral Health) Nadia Swift DO as Neurologist (Neurology) PSYCHIATRIC REVIEW OF SYMPTOMS AND MENTAL STATUS EXAM ROS: Patient denies malaise, night sweats, weight gain, cough, SOB, palpitations, chest pain, insomnia, dysphagia, abdominal pain, N/V/D, pruritus, rash, headache, dizziness, seizures, tremors, headache. Appearance Appearance: Normal grooming and hygiene. Appears stated age. Dressed appropriately for weather. Behavior Calm, cooperative, pleasant. Good posture. Psychomotor Activity Repetitive movements Eye contact Good Speech Normal, clear, regular rate, rhythm and volume Affect Full range. Stable. Appropriate and congruent with mood. Mood Euthymic Thought Process Organized, logical, and goal directed Thought Content: Denies suicidal and homicidal ideation. Perception: Denies auditory or visual hallucinations. No evidence of delusions. Denies derealization and depersonalization. Cognition Alert and attentive during visit Memory Immediate, recent and remote memory intact Insight Good. Acknowledges predominant symptoms of illness and need for treatment Judgement Good. Able to make reasonable life decisions. OBJECTIVE: Visit Vitals Smoking Status Never Lab Results Component Value Date TSH 1.36 12/08/2024 Lab Results Component Value Date GLU 95 12/08/2024 GLU NEGATIVE 12/08/2024 CALCIUM 9.3 12/08/2024 NA 139 12/08/2024 K 4.1 12/08/2024 CO2 25 12/08/2024 CL 106 12/08/2024 BUN 11 12/08/2024 CREATININE 1.11 12/08/2024 Lab Results Component Value Date WBC 7.3 12/08/2024 HGB 15.7 12/08/2024 HCT 46.0 12/08/2024 MCV 93.3 12/08/2024 PLT 321 12/08/2024 Lab Results Component Value Date CHOL 141 06/14/2024 Lab Results Component Value Date HDL 47 06/14/2024 Lab Results Component Value Date LDLCALC 75 06/14/2024 Lab Results Component Value Date TRIG 100 06/14/2024 ASSESSMENT AND PLAN: Impression: Patient has not seen any improvement in movements since being on the 60 mg of Ingrezza. He is agreeable to increasing to max dose of 80 mg. We discussed giving this 2 months to see how his movements do. He is aware that there is potential for his movement to remain the same despite increasing the dose. He feels his mood is controlled with Lamictal and Prozac, and desires to continue current doses of these two medications. He has had significant weight loss since August and is currently being worked up by PCP to further evaluate this. While his medications do have potential for weight loss, this amount of weight loss (nearly 30 lbs) is significant enough that there is a low likelihood if it being related to his medications. I updated both Juliana and Estefania on patient's treatment plan. Patient was reminded of my maternity leave on 02/22/25 that will be occurring this month, as well as coverage, plan for medication refills, and if any concerns arise. Assessment/Plan Diagnoses and all orders for this visit: Bipolar 2 disorder (HCC) SAMRA (generalized anxiety disorder) Tardive dyskinesia Treatment Plan/Recommendations: - Increase Ingrezza to 80 mg daily for TD. He was given 2 weeks of samples today. - Continue Lamictal 50 mg daily for bipolar disorder. - Continue Fluoxetine 20 mg for depression and anxiety. - Follow up with movement disorder specialist as scheduled. - RTC in July. Discussed any medication changes and follow-up plan with patient. Encouraged patient to call office sooner if symptoms worsen or if any questions/concerns arise. Patient was seen Televisit - Audio and Visual, Total time spent with patient was 13 minutes, which includes reviewing chart documents, previous notes/records, counseling and discussion with patient and/or coordination of care as described above. documented in this encounter [facility] 02-22-2025 History of Presen t illness Narrative Images from the original note were not included. HPI: Tahira Ivey is a 44 y.o. male with a history of bipolar affective disorder, MDD, SAMRA, tremors, and tardive dyskinesia. Patient is here today for follow-up. At patient's last visit on 01/25/25, he desires to decrease his Ingrezza dose and titrate off Propranolol prior to seeing movement disorder specialist. He reported that he wanted to see if this would exacerbate his symptoms so they can get a better assessment. Patient saw movement disorder specialist at [facility] on 02/03. They recommended increasing his Ingrezza back to 60 mg and potentially up to 80 mg in the future. They also recommended possibly restarting Propranolol if tremors worsen. They would like to avoid any SGAs in the future as these have worsened symptoms, and to consider PT/OT to address functional movement disorder features. He is scheduled to see specialist again in May. He states he did see a physical therapist through them. They gave him education on different things he can do at home. They recommended using a weighted blanket for sleep, compression socks, and a stress ball during the day. He plans to only see therapist again on an as needed basis. He is also seeing a psychologist via telehealth every other week. He states that he just did his initial intake with them and is not sure what future visits will entail. 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 He states if he gets this, he will be doing 4 years of swing shift and schooling to get his [employer] card. He states stress has decreased at work. He has lost another 4 lbs since last visit on January 25. He states he has changed his diet several months ago which could be contributing to this weight loss. He plans to talk to his PCP again about this, who had previously suggested CT scan to further evaluate. SUBJECTIVE: PAST MEDICAL HISTORY: Past Medical History: Diagnosis Date Arthralgia Asymptomatic microscopic hematuria Bipolar disorder (HCC) Bursitis of shoulder, right Cyst of tendon sheath Dyspnea 09/08/2023 Family history of multiple sclerosis Hx of psychiatric hospitalization [facility] in his 20s Lumbar back pain Tardive dyskinesia Tremor MEDICATIONS: Current Outpatient Medications Medication Instructions FLUoxetine (PROZAC) 20 mg, Oral, Daily lamoTRIgine (LAMICTAL) 50 mg, Oral, Daily Valbenazine Tosylate (Ingrezza) 60 MG capsule 1 capsule, Oral, Daily in the morning ALLERGIES: Allergies Allergen Reactions Morphine Hives Severe itching Penicillins Rash SURGICAL HISTORY: Past Surgical History: Procedure Laterality Date CHOLECYSTECTOMY CYST REMOVAL Bilateral breast CYST REMOVAL back of neck SHOULDER ARTHROSCOPY Right 07/31/2023 DR JANE VASECTOMY WISDOM TOOTH EXTRACTION Right 11/2023 right upper FAMILY HISTORY: Family History Problem Relation Name Age of Onset Vision loss Mother Sandra valencia Multiple sclerosis Father Juve Ivey Vision loss Father Juve Ivey Diabetes Brother Ari Ivey COPD Other mothers side Rheum arthritis Other mothers side Fibromyalgia Other mothers side Arthritis Maternal Grandmother Brinda Preethi Hearing loss Maternal Grandmother Brinda Preethi SOCIAL HISTORY: Social History Tobacco Use Smoking status: Never Smokeless tobacco: Never Vaping Use Vaping status: Never Used Substance Use Topics Alcohol use: Not Currently Comment: caffiene- 3 sweet tea and occasion pop Drug use: Never Patient Care Team: Montrell Serrano MD as PCP - General (Family Medicine) Georgia Davey NP as Referring Physician (Family Medicine) [facility] Practition[facility] (Behavioral Health) Nadia Swift DO as Neurologist (Neurology) PSYCHIATRIC REVIEW OF SYMPTOMS AND MENTAL STATUS EXAM ROS: Patient denies malaise, night sweats, weight loss, weight gain, cough, SOB, palpitations, chest pain, insomnia, dysphagia, abdominal pain, N/V/D, pruritus, rash, headache, dizziness, seizures, tremors, headache. Appearance Appearance: Normal grooming and hygiene. Appears stated age. Dressed appropriately for weather. Behavior Calm, cooperative, pleasant. Good posture. Psychomotor Activity Repetitive movements Eye contact Good Speech Normal, clear, regular rate, rhythm and volume Affect Full range. Stable. Appropriate and congruent with mood. Mood Euthymic Thought Process Organized, logical, and goal directed Thought Content: Denies suicidal and homicidal ideation. Perception: Denies auditory or visual hallucinations. No evidence of delusions. Denies derealization and depersonalization. Cognition Alert and attentive during visit Memory Immediate, recent and remote memory intact Insight Good. Acknowledges predominant symptoms of illness and need for treatment Judgement Good. Able to make reasonable life decisions. OBJECTIVE: Visit Vitals BP 100/72 (BP Location: Right arm, Patient Position: Sitting) Pulse 71 Wt 188 lb BMI 25.50 kg/m Smoking Status Never BSA 2.08 m Lab Results Component Value Date TSH 1.36 12/08/2024 Lab Results Component Value Date GLU 95 12/08/2024 GLU NEGATIVE 12/08/2024 CALCIUM 9.3 12/08/2024 NA 139 12/08/2024 K 4.1 12/08/2024 CO2 25 12/08/2024 CL 106 12/08/2024 BUN 11 12/08/2024 CREATININE 1.11 12/08/2024 Lab Results Component Value Date WBC 7.3 12/08/2024 HGB 15.7 12/08/2024 HCT 46.0 12/08/2024 MCV 93.3 12/08/2024 PLT 321 12/08/2024 Lab Results Component Value Date CHOL 141 06/14/2024 Lab Results Component Value Date HDL 47 06/14/2024 Lab Results Component Value Date LDLCALC 75 06/14/2024 Lab Results Component Value Date TRIG 100 06/14/2024 ASSESSMENT AND PLAN: Impression: Patient has been on 60 mg of Ingrezza for almost 3 weeks. We discussed giving this 2 months to see where his movements go before increasing to max dose of 80 mg. He is agreeable to this. He feels that tremors are stable since getting off Propranolol. He desires to continue to stay off of this medication at this time. His mood is stable with Lamictal and Prozac. Will refrain from any SGAs due to his adverse reactions. He will continue to follow with specialists at [facility] for additional care of his movements. Patient made aware of my maternity leave on 02/22/25 that will be occurring this Fall, as well as coverage, plan for medication refills, and if any concerns arise. Assessment/Plan Diagnoses and all orders for this visit: Tardive dyskinesia - Valbenazine Tosylate (Ingrezza) 60 MG capsule; Take 1 capsule by mouth Daily in the Morning - FLUoxetine (PROzac) 20 MG capsule; Take 1 capsule (20 mg) by mouth Daily - lamoTRIgine (LaMICtal) 25 MG tablet; Take 2 tablets (50 mg) by mouth Daily SAMRA (generalized anxiety disorder) - FLUoxetine (PROzac) 20 MG capsule; Take 1 capsule (20 mg) by mouth Daily Bipolar 2 disorder (HCC) - lamoTRIgine (LaMICtal) 25 MG tablet; Take 2 tablets (50 mg) by mouth Daily Treatment Plan/Recommendations: - Continue Ingrezza 60 mg daily for TD. He was given 2 weeks of samples today. - Continue Lamictal 50 mg daily for bipolar disorder. - Continue Fluoxetine 20 mg for depression and anxiety. - Follow up with movement disorder specialist on February 03. - RTC in 5 weeks. Discussed any medication changes and follow-up plan with patient. Encouraged patient to call office sooner if symptoms worsen or if any questions/concerns arise. Patient was seen Face to Face, Total time spent with patient was 25 minutes, which includes reviewing chart documents, previous notes/records, counseling and discussion with patient and/or coordination of care as described above. documented in this encounter [facility] 02-16-2025 Note HNO ID: [id number] Author: MYRIAM SWANN PT Service: ? 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 The patient presents with impairments in independence in exercise, overall function, and symptom management. PROMIS? (Patient-Reported Outcomes Measurement Information System) scores were reviewed and identified as within normal limits. Prognosis for therapy is Good due to: current objective clinical presentation, good overall health status, within-session changes . Improvements noted in dyskinetic movements and tremor with use of weighting and tactile distractions. The patient will benefit from skilled therapy services to meet the goals established for this plan of care as noted below. Goals for Episode of Care: established 02/16/25 Patient will demonstrate current home exercise program independently. Patient will independently identify 3-4 strategies for symptom management. Patient will tolerate sitting x 20 min with minimal movements and tremors. Patient Goals: Improve symptom management Time Frame for Goals and Treatment : 04/17/25 Planned Interventions, Frequency, and Duration: Current Frequency: 1 visit Duration: 1 visit Total Number of Visits Planned: 1 Planned Treatment Interventions: Therapeutic exercise (15150), Neuromuscular re-education (39515), Manual therapy (45639), Therapeutic activities (44017), Self-mcfp management (66727), Gait Training (43158), Patient/Family/Caregiver Education, Body Mechanics Training, Functional training, General Conditioning PLAN FOR NEXT VISIT: Progress diverted attention strategies, weighting, compression, sensory integration Patient demonstrates good understanding of plan of care and treatment. The above goals and plan of care were discussed and agreed upon by patient/family. SUBJECTIVE: Pt reports having tremoring in L hand, tardive dyskinesia through face. Symptoms worsen with stress and overstimulation. Nothing seems to help. No issues with balance. Symptoms typically mild in the morning, worsen as the day goes on. A lot of difficulty with sleeping due to movements. 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 5 points is clinically meaningfully difference Percentiles provide an indication of how the patient's score ranks in relation to the general population. Higher percentile rankings indicate better function/quality of life. 50th percentile is the average of the general population and indicates half of respondents had a worse score. OBJECTIVE MEASURES WITH LEVEL OF FUNCTION: Posture / Alignment Posture: Forward head, Rounded shoulders UE and Cervical Strength Strength Tested: Hand R UE Strength: Grossly 5/5 L UE Strength: Grossly 5/5 Hand Strength R Independent Jeweler Position 1 (lbs): 90 lbs R Independent Jeweler Position 2 (lbs): 90 lbs L Independent Jeweler Position 1 (lbs): 105 lbs L Independent Jeweler Position 2 (lbs): 110 lbs LE Strength R LE Strength: Grossly 5/5 L LE Strength: Grossly 5/5 Movement Description Movement Impairment(s): Tremor Tremor Comments: Mostly in L hand Gait Gait Observation: WFL Functional Performance Test Results 9 Hole Peg Test Right (seconds): 22.2 9 Hole Peg Test Left (seconds): 23.14 Education: Education Learning/educational needs: Lifestyle changes, Health promotion, Safety, Home exercise program, Plan of Care, Changes in Plan of Care, Posture TREATMENT: PT Treatment Interventions: Neuromuscular Re-Education Evaluation Evaluation Neuromuscular Re-Education: 1: Education on FND, PT role in POC 2: Education on use of diverted attention strategies for symptom management, importance of consistency with use 3: Education on benefits o (more content not included)... 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 The patient presents with impairments in independence in exercise, overall function, and symptom management. PROMIS (Patient-Reported Outcomes Measurement Information System) scores were reviewed and identified as within normal limits. Prognosis for therapy is Good due to: current objective clinical presentation, good overall health status, within-session changes . Improvements noted in dyskinetic movements and tremor with use of weighting and tactile distractions. The patient will benefit from skilled therapy services to meet the goals established for this plan of care as noted below. Goals for Episode of Care: established 02/16/25 Patient will demonstrate current home exercise program independently. Patient will independently identify 3-4 strategies for symptom management. Patient will tolerate sitting x 20 min with minimal movements and tremors. Patient Goals: Improve symptom management Time Frame for Goals and Treatment : 04/17/25 Planned Interventions, Frequency, and Duration: Current Frequency: 1 visit Duration: 1 visit Total Number of Visits Planned: 1 Planned Treatment Interventions: Therapeutic exercise (82425), Neuromuscular re-education (80025), Manual therapy (21959), Therapeutic activities (70609), Self-mcfp management (02573), Gait Training (03857), Patient/Family/Caregiver Education, Body Mechanics Training, Functional training, General Conditioning PLAN FOR NEXT VISIT: Progress diverted attention strategies, weighting, compression, sensory integration Patient demonstrates good understanding of plan of care and treatment. The above goals and plan of care were discussed and agreed upon by patient/family. SUBJECTIVE: Pt reports having tremoring in L hand, tardive dyskinesia through face. Symptoms worsen with stress and overstimulation. Nothing seems to help. No issues with balance. Symptoms typically mild in the morning, worsen as the day goes on. A lot of difficulty with sleeping due to movements. 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 5 points is clinically meaningfully difference Percentiles provide an indication of how the patient's score ranks in relation to the general population. Higher percentile rankings indicate better function/quality of life. 50th percentile is the average of the general population and indicates half of respondents had a worse score. OBJECTIVE MEASURES WITH LEVEL OF FUNCTION: Posture / Alignment Posture: Forward head, Rounded shoulders UE and Cervical Strength Strength Tested: Hand R UE Strength: Grossly 5/5 L UE Strength: Grossly 5/5 Hand Strength R Independent Jeweler Position 1 (lbs): 90 lbs R Independent Jeweler Position 2 (lbs): 90 lbs L Independent Jeweler Position 1 (lbs): 105 lbs L Independent Jeweler Position 2 (lbs): 110 lbs LE Strength R LE Strength: Grossly 5/5 L LE Strength: Grossly 5/5 Movement Description Movement Impairment(s): Tremor Tremor Comments: Mostly in L hand Gait Gait Observation: WFL Functional Performance Test Results 9 Hole Peg Test Right (seconds): 22.2 9 Hole Peg Test Left (seconds): 23.14 Education: Education Learning/educational needs: Lifestyle changes, Health promotion, Safety, Home exercise program, Plan of Care, Changes in Plan of Care, Posture TREATMENT: PT Treatment Interventions: Neuromuscular Re-Education Evaluation Evaluation Neuromuscular Re-Education: 1: Education on FND, PT role in POC 2: Education on use of diverted attention strategies for symptom management, importance of consistency with use 3: Education on benefits of NS regulation for symptom management, use of weighted blanket, compression 4: Sitting with weighted lap pad- improved LE movements 5: Holding weighted ball- improved facial movements and UE tremor 6: Education on benefits of exercise for NS regulation, starting a walking program 7: Sitting while count back from 100 by 3s with eyes closed- no significant improvement Skilled Intervention: Skilled judgment used to assess appropriate program for balance and coordination activity. Patient education as noted. Billing * Evaluation Moderate Complexity: 1 Unit Neuromuscular Re-Education Treatment Minutes: 23 Skilled Treatment Time Minutes (timed and untimed codes): 40 Total Session Time (minutes): 40 Session Start Time : 0 Session Stop Time : 829 Myriam Swann PT, DPT documented in this encounter [facility] 02-15-2025 Note HNO ID: [id number] Author: STEVO GARCIA PSYD Service: ? Author Type: Physician Type: Progress Notes Filed: 03/06/2025 22:38 Note Text: [facility] [place] Clinical Health Psychology Evaluation Time of Service: 8:05 am to 9:00 am CPT Code: psychodiagnostic evaluation Billing Code: Hasnie The patient was informed that this interview was only for the purpose of assessing the presenting problem, for diagnosis and treatment planning and/or to make treatment recommendations. The patient agreed that the evaluation would not be used for forensic, disability, or child custody purposes. The following history is obtained from the patient except when noted. The content acquired from chart review has been confirmed with the patient and discrepancies were noted if any. Limits of confidentiality were discussed. Identification and Presenting Problem: Mr. Ivey is a 44 year old male who was referred by Dr. 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 He presents with a history of involuntary movement symptoms. Symptom onset: 1 year Most bothersome symptoms: tremor Aggravating factors: stress Alleviating factors: distraction Social History: Mr. Ivey was raised in [place]. He has one half brother who is 12 years younger than him. There is no family history for movement disorder. Family history is negative for severe mental illness or treatment. The patient endorses a history of bipolar affective disorder and has engaged and mental health treatment and both inpatient and outpatient settings. He currently works with a local mental health provider who manages his medication regimen. The patient denies any history of alcohol or drug abuse in his family. Likewise, he denies any history of alcohol or drug abuse on his own part. denied Mr. Ivey denies any history of physical or sexual abuse in childhood. However, he notes the loss of his grandparents was significantly distressing to him. The patient works full-time however endorses a history of bullying in the workplace for the past 8 years. The patient does not receive any disability payments, nor has he applied for any. Mr. Ivey has been to his for 7 years. He describes this relationship to be stable and supportive. He denies having children. There is no problem list on file for this patient. Current Functioning: He describes a variable sleep and wake schedule often dictated by his work hours. He describes significant fatigue throughout the day however continues to engage in recreational activity such as playing golf and completing home improvement tasks. Medications: Current Outpatient Medications Medication Sig FLUoxetine (PROZAC) 20 mg capsule Take 20 mg by mouth. valbenazine (INGREZZA) 40 mg capsule Take 40 mg by mouth. lamoTRIgine (LAMICTAL) 25 mg tablet Take 50 mg by mouth. No current facility-administered medications for this visit. Mr. Ivey reports significant depressive symptoms in the past month, including sleep disturbance, 20 pound weight loss and fatigue as well as memory and concentration problems. He denies SI, intent, plan, or recent attempts. He notes intermittent instances of irritability as well as a remote history of panic. Drug and alcohol screening and triage Caffeine use: Minimal Tobacco use: Denied Current illicit drug use: None Current marijuana use: Mr. Ivey denied marijuana use within the past month. Current use of prescribed opioids, sedatives AND benzodiazepines: Mr. Ivey does not use opioids or sedative/hypnotics. Alcohol use: Mr. Ivey has consumed no alcoholic beverages in the past week. He has not consumed more than 4 alcoholic beverages (3 if female) in a single sitting within the past month. Screening questions: - ?Has a family member, friend or physician expressed concern about your drug, alcohol, or prescription medication use?? No. - Have you ever been evaluated or treated for problems with alcohol or other drugs, including prescribed drugs? No. - Have you ever been concerned that prescriptions, recreational drugs, or alcohol had become harmful to you? No. Impressions Mr. Ivey is a 44 year old male who was referred by Dr. 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 He presents with a 1 year history of involuntary movement symptoms, including tremor. He reports aggravating factors appear to be stressful circumstances with temporary relief when implementing distraction techniques. He endorses a prior history of bipolar affective disorder for which he is treating via psychotropic medication at the recommendation of a local mental health provider. He continues to report mild depression and anxiety symptoms largely influenced by his current movement concerns. It is recommended that the (more content not included)... [facility] 02-15-2025 History of Presen t illness Narrative [facility] [place] Clinical Health Psychology Evaluation Time of Service: 8:05 am to 9:00 am CPT Code: psychodiagnostic evaluation Billing Code: Hasnie The patient was informed that this interview was only for the purpose of assessing the presenting problem, for diagnosis and treatment planning and/or to make treatment recommendations. The patient agreed that the evaluation would not be used for forensic, disability, or child custody purposes. The following history is obtained from the patient except when noted. The content acquired from chart review has been confirmed with the patient and discrepancies were noted if any. Limits of confidentiality were discussed. Identification and Presenting Problem: Mr. Ivey is a 44 year old male who was referred by Dr. 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 He presents with a history of involuntary movement symptoms. Symptom onset: 1 year Most bothersome symptoms: tremor Aggravating factors: stress Alleviating factors: distraction Social History: Mr. Ivey was raised in [place]. He has one half brother who is 12 years younger than him. There is no family history for movement disorder. Family history is negative for severe mental illness or treatment. The patient endorses a history of bipolar affective disorder and has engaged and mental health treatment and both inpatient and outpatient settings. He currently works with a local mental health provider who manages his medication regimen. The patient denies any history of alcohol or drug abuse in his family. Likewise, he denies any history of alcohol or drug abuse on his own part. denied Mr. Ivey denies any history of physical or sexual abuse in childhood. However, he notes the loss of his grandparents was significantly distressing to him. The patient works full-time however endorses a history of bullying in the workplace for the past 8 years. The patient does not receive any disability payments, nor has he applied for any. Mr. Ivey has been to his for 7 years. He describes this relationship to be stable and supportive. He denies having children. There is no problem list on file for this patient. Current Functioning: He describes a variable sleep and wake schedule often dictated by his work hours. He describes significant fatigue throughout the day however continues to engage in recreational activity such as playing golf and completing home improvement tasks. Medications: Current Outpatient Medications Medication Sig FLUoxetine (PROZAC) 20 mg capsule Take 20 mg by mouth. valbenazine (INGREZZA) 40 mg capsule Take 40 mg by mouth. lamoTRIgine (LAMICTAL) 25 mg tablet Take 50 mg by mouth. No current facility-administered medications for this visit. Mr. Ivey reports significant depressive symptoms in the past month, including sleep disturbance, 20 pound weight loss and fatigue as well as memory and concentration problems. He denies SI, intent, plan, or recent attempts. He notes intermittent instances of irritability as well as a remote history of panic. Drug and alcohol screening and triage Caffeine use: Minimal Tobacco use: Denied Current illicit drug use: None Current marijuana use: Mr. Ivey denied marijuana use within the past month. Current use of prescribed opioids, sedatives & benzodiazepines: Mr. Ivey does not use opioids or sedative/hypnotics. Alcohol use: Mr. Ivey has consumed no alcoholic beverages in the past week. He has not consumed more than 4 alcoholic beverages (3 if female) in a single sitting within the past month. Screening questions: - Has a family member, friend or physician expressed concern about your drug, alcohol, or prescription medication use? No. - Have you ever been evaluated or treated for problems with alcohol or other drugs, including prescribed drugs? No. - Have you ever been concerned that prescriptions, recreational drugs, or alcohol had become harmful to you? No. Impressions Mr. Ivey is a 44 year old male who was referred by Dr. 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 He presents with a 1 year history of involuntary movement symptoms, including tremor. He reports aggravating factors appear to be stressful circumstances with temporary relief when implementing distraction techniques. He endorses a prior history of bipolar affective disorder for which he is treating via psychotropic medication at the recommendation of a local mental health provider. He continues to report mild depression and anxiety symptoms largely influenced by his current movement concerns. It is recommended that the patient continue follow-up and complete a brief course of CBT sessions to focus on FMD trigger identification, stress management, and relaxation training including progressive muscle relaxation, autogenic training, diaphragmatic breathing and imagery/visualization. Diagnoses: Functional movement disorder Dyskinesia, tardive Stevo Garcia Psy.D. Staff, [facility] documented in this encounter [facility] 02-03-2025 Telephone encounter Note FMD welcome message emailed to patient. [facility] 02-03-2025 Miscellaneous Notes FMD welcome message emailed to patient. documented in this encounter [facility] 02-03-2025 Instructions Olena Gomez MD - 02/03/2025 10:30 AM EDT We discussed your tardive dyskinesia and essential tremor: - Continue taking Ingrezza (valbenazine) at 60 mg daily. This is the dose you were on prior to your recent decrease. Your mental health provider will manage any dosage adjustments, including a potential increase to 80 mg if needed in the future. - You may choose to restart propranolol (60 mg daily) if you feel it was helpful in managing your symptoms. However, if your symptoms improve after resuming the 60 mg dose of Ingrezza, propranolol may not be necessary. - Avoid antipsychotic medications, as they have worsened your symptoms in the past. Your psychiatry team will continue managing your mental health with alternative treatments. - Consider physical and occupational therapy to address functional movement disorder (FMD) features. These therapies aim to help you retrain your brain to calm your nervous system and reduce excessive movements, especially during stressful or overstimulating situations. - Therapy will involve working with physical therapists, occupational therapists, and psychotherapists who specialize in movement disorders. - You will need to travel to our facility for initial sessions, as these specialists are not available locally. We will aim to consolidate appointments to minimize travel. We discussed your sleep difficulties and overstimulation: - Engage in cognitively demanding activities or distractions during periods of overstimulation to help calm your nervous system and reduce movements. - Continue taking your current medications (fluoxetine and lamotrigine) as prescribed by your mental health provider. Take fluoxetine (20 mg) and lamotrigine (25 mg, 2 tablets daily) at night, as you have been doing. Follow-up: - Schedule appointments for physical, and psychotherapy at our facility. Try to arrange all sessions on the same day to reduce travel. - Follow up with us in May for reassessment. If urgent issues arise, contact us via [employer] for guidance or to schedule an earlier visit. - Continue working with your mental health provider for medication management and updates on your treatment plan. Please let us know if you have any questions or concerns. What is Functional Neurological Disorder (FND)? Functional neurological disorder (FND) describes a problem with how the brain receives and sends information to the rest of the body. It s often helpful to think of your brain as a computer. In someone who has FND, there s no damage to the hardware, or structure, of the brain. It s the software, or program running on the computer, that isn t working properly. What are symptoms of FND? FND causes different symptoms for different people. Some people may have one symptom while others have many. Symptoms may include arm or leg weakness, tremors, difficulty walking, speech changes, sensory issues, and/or seizure-like episodes. Other symptoms like fatigue, brain fog, sleep issues, migraines, and pain are not directly caused by FND, but are often found alongside it. How is the diagnosis of FND made? A diagnosis is made when you have one or more clinical exam features that a specialist can recognize as typical of FND. The diagnosis shouldn t be made just because scans or tests for other neurological conditions are normal. What causes FND? Based on current knowledge, symptoms of FND happen because there s a problem with how the brain is sending and receiving messages to itself and other parts of the body. Using research tools, scientists can see certain circuits in the brain are not working properly in people with FND. However, there s still a lot of research to be done to understand how and why FND happens. What are the treatments for FND? FND symptoms vary from person to person and treatments are individualized. With proper treatments we have seen many patients improve. Rehabilitative therapies designed to retrain the brain can help patients improve their symptoms and overall function. This includes specialized neurological physical, occupational, and/or speech therapy that teach specific techniques to retrain brain functioning. Psychological therapy is helpful to learn brain-body connection, effective and healthy coping skills, and techniques to gain better control of movements and relax muscles. Psychological treatments can also help you learn ways to manage low mood, anxiety, or other mental health conditions. You are encouraged to attend virtual shared medical appointments (VSMA) as part of your care. VSMA for FMD is a unique platform developed by our team to provide education and support in a virtual group setting. During the VSMA, you will be joined by other patients diagnosed with FMD, to learn about this condition together. We are optimistic that by working together with you, we will be able to help you improve your symptoms over time. What is my next step? Orders have been placed for you to have additional appointments. Below is a guide for how to schedule these. Physical, Occupational, and/or Speech Therapy Call: [phone] or schedule through a ticket in [employer]. Psychology Therapy Call: [phone], ask to be scheduled with Dr. Shirin Morgan, Dr. Elizabeth Barrera, or Dr. Stevo Garcia. Virtual Shared Medical Appointment for FMD Education Call: [phone] or schedule through a ticket in [employer] Follow-up with Cheyenne Ortiz PA-C, who will help support you through your care. Call: [phone] or schedule through a ticket in [employer]. How can I learn more about FND? www.neurosymptoms.org www.fndhope.org documented in this encounter [facility] 02-03-2025 History of Presen t illness Narrative [facility] - NEW PATIENT EVALUATION Primary Movement Disorders Neurologist: Willow Wilkins MD Primary Movement Disorders JAVAN: I had the pleasure of evaluating Mr. Ivey in our clinic today. He is a 44 year old left-handed male who presents for evaluation of tardive dyskinesia since >10 years . Subjective HISTORY OF PRESENT ILLNESS: Initial HPI Tahira Ivey is a 44-year-old male with a history of bipolar affective disorder, MDD, SAMRA, tremors, and tardive dyskinsia presenting with concerns about tardive dyskinesia and tremor. He is from [facility] and follows with a local psychiatry team. Chart Review: Per records he is currently on fluoxetine, lamotrigine, propranolol, and valbenazine. He saw his psychiatry [employer] on 01/25/2025 where he asked for a weaning protocol for his ingrezza and propranolol so we would be better able to appreciate his movements at the appointment today. He was instructed to decrease Ingrezza to 40 mg daily and decrease Propranolol to every other day for 1 week, then every 3 days for 1 week, then stop medication. August 2024 he was switched from Abilify to Caplyta (lumateperone) due to akathesia and increased tremors. Around September 2024 was put on a higher dose of caplyta (lumateperone) which resulted in excessive blinking, twitching, movement of his neck, jaw clenching, and increased anxiety prompting discontinuation of medication in October and avoidance of SGA by psychiatry provider. He was placed on lamictal in October 2024 for mood stabilization and Ingrezza was increased to 60mg for TD management. Last visit with a Neurologist was 05/05/[address] Nadia Swift with [facility]. Per note at this visit he observed abnormal [id number] testing indicating ataxia for which MRI brain W/WO was ordered and was completed 05/18/[address] 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 He recommended psychiatry consider non-dopamine blocking agents for management of psychiatry pathology. History Obtained Today: Tahira reports a long-standing history of involuntary tongue movements and hand postures, which have progressively worsened over time. Approximately one year ago, he began experiencing an inability to sit still and the onset of tremors, which have also progressively worsened. These symptoms are exacerbated by stress, overstimulation, and certain activities such as holding a screwdriver or flashlight. He notes a constant urge to move, particularly at night, which disrupts his sleep. He also reports excessive sweating, which began this year, and neck pain, which he attributes to his involuntary movements. He denies any falls due to his movements. Tahira has a history of bipolar disorder, for which he was previously treated with aripiprazole for over 10 years. He believes this medication may have contributed to his current symptoms. He also has a history of risperidone use, but cannot recall the duration. He has tried multiple medications for his symptoms, including benztropine, Austedo, and propranolol, but did not find them effective. He is currently taking fluoxetine 20 mg QHS, lamotrigine 50 mg QHS, and Ingrezza 40 mg QAM. He recently decreased his Ingrezza dose from 60 mg to 40 mg and discontinued propranolol 60 mg, which he was taking every 3 days with the goal of having his symptoms be worse for this appointment. He reports that Ingrezza provides some relief, but he does not think the propranolol helped. He denies any worsening in his tremor after discontinuing propranolol. He has not tried benzodiazepines. Tahira reports that his symptoms improved after discontinuing aripiprazole and Austedo, but have remained stable over the past year. He denies any family history of tremors, Parkinson's disease, or dementia. He has a family history of multiple sclerosis in his father and type 1 diabetes in his brother. He denies any history of hypertension, hypercholesterolemia, or diabetes. He has a history of cholecystectomy. He denies any tobacco, marijuana, or other drug use. He rarely consumes alcohol and did not notice any improvement in his tremor with alcohol consumption. Movement Disorders Medications Schedule - as of the start of the visit: Medications AM PM fluoxetine 20 mg 1 lamotrigine 25 mg 2 valbenazine 60 mg 1 propranolol 60 mg 1 Other Movement Disorder Prior Therapies Dutetrabenazine, Valbenazine Bneztropine Questionnaires Review of Systems: Constitutional: (+) heat intolerance, (+) excessive sweating, (+) insomnia, (+) daytime fatigue Ears/Nose/Mouth/Throat: (+) choking on saliva Neck: (+) neck pain Respiratory: (+) cough Genitourinary: (+) nocturia Neurological: (+) tremor, (+) restlessness, (+) involuntary tongue movements, (+) involuntary hand posturing, (-) falls, (-) numbness, (-) tingling ALLERGIES Allergen Reactions Morphine Hives, Unknown Severe itching Penicillins Rash Current Outpatient Medications Medication Sig FLUoxetine (PROZAC) 20 mg capsule Take 20 mg by mouth. valbenazine (INGREZZA) 40 mg capsule Take 40 mg by mouth. lamoTRIgine (LAMICTAL) 25 mg tablet Take 50 mg by mouth. No current facility-administered medications for this visit. Past Medical and Surgical History: has a past medical history of Bipolar affective (HCC) and Tardive dyskinesia. has a past surgical history that includes removal gallbladder. Social History Tobacco Use Smoking status: Never Smokeless tobacco: Never Substance Use Topics Alcohol use: Yes Comment: rare Drug use: Never Family History: family history includes Multiple Sclerosis in his father. Objective Vital Signs: BP 119/80 (BP Site: Left Arm, BP Position: Sitting, BP Cuff Size: Regular Adult) Pulse 71 SpO2 99% Orthostatic Vitals: None for this encounter No LMP for male patient. There is no height or weight on file to calculate BMI. General Physical Examination: General Exam General Neurological Examination: Neurological Exam Mental Status Awake. Oriented to person, place, time and situation. Recent and remote memory are intact. Speech is normal. Language is fluent with no aphasia. Attention and concentration are normal. Fund of knowledge is appropriate for level of education. Cranial Nerves CN II: Visual peoples full to confrontation. CN III, IV, : Extraocular movements intact bilaterally. Normal lids and orbits bilaterally. Pupils equal round and reactive to light bilaterally. CN V: Facial sensation is normal. CN VII: Full and symmetric facial movement. CN VIII: Hearing is normal. CN IX, X: Palate elevates symmetrically CN XI: Shoulder shrug strength is normal. CN XII: Tongue midline without atrophy or fasciculations. Motor Normal muscle bulk throughout. No fasciculations present. Normal muscle tone. Dyskinetic movements throughout face, torso, arms, and legs throughout history taking. Would diminish in severity throughout examination and with Luria testing. Hand tremor at rest which would change in frequency and amplitude and improved when doing finger to nose testing with the opposite hand. Hand tremors improve with holding posture, only subtly present in left hand with holding posture.. Strength is 5/5 throughout all four extremities. Sensory Light touch is normal in upper and lower extremities. Reflexes Right Left Brachioradialis 2+ 2+ Biceps 2+ 2+ Patellar 2+ 2+ Achilles 2+ 2+ Right Plantar: downgoing Left Plantar: downgoing Coordination Right: [id number] normal. Rapid alternating movement normal. Gznb-sd-[id number] normal.Left: [id number]-[id number] normal. Rapid alternating movement normal. Hnpe-xr-bgge normal. Mild tremulousness in BL hands (L>R) with finger to nose but not consistently present.. Gait Casual gait is normal including stance, stride, and arm swing.Normal toe walking. Normal heel walking. Normal tandem gait. Romberg is absent. Able to rise from chair without using arms. Pertinent Studies MRI Brain 05/18/2024: Unremarkable brain MRI performed without and with contrast. Assessment and Plan: Assessment Mr. Ivey is a left-handed 44 year old year old male with a history of bipolar affective disorder, MDD, SAMRA, tremors, and tardive dyskinsia presenting with concerns about tardive dyskinesia and tremor presenting for a second opinion on management of his abnormal movements. He has been on aripiprazole and risperidone in the past (>10 years) with long-standing tongue movements and hand postures however over the past 1 year he has developed excessive body movements with inability to sit still and tremors (L>R hand). His psychiatry team discontinued SGAs completely in October 2024 and he has been on increasing doses of Ingrezza up to 60 mg with some effect as well as propranolol with little perceived benefit. Neurological examination reveals a possible subtle parkinsonian tremor (more likely functional tremor) more pronounced on the left side, and dyskinetic movements of face, body, and limbs that decrease with cognitive distraction. Clinical picture is consistent with tardive dyskinesia with possible mild drug induced parkinsonism complicated by functional movement disorder, given the exacerbation of symptoms with stress and improvement with distraction. We reviewed this diagnosis and management including maximizing Ingrezza dosage for management of TD and initiating FMD based therapies. He was in agreement with this plan. The following are the current problems noted and addressed during this visit: Functional movement disorder (primary encounter diagnosis) Dyskinesia, tardive Drug-induced parkinsonism (hcc) Plan 02/03/2025 Visit: Increase Ingrezza back to 60 mg daily, then titrate to 80 mg daily based on response. Monitor response to Ingrezza before considering resumption of propranolol. Referral to FMD clinic for functional movement disorder management. Follow-up appointment scheduled for May to reassess symptoms and treatment efficacy. Interested in clinical research? Not discussed Updated Movement Disorders Medication Schedule: Medications AM PM fluoxetine 20 mg 1 lamotrigine 25 mg 2 valbenazine 80 mg 1 Return at or around: 06/06/25 I performed a history and physical examination of the patient and discussed the management with Dr. Gomez. I reviewed their note and agree with the documented findings and plan of care. Aside from minor typographical errors, any additions from myself can be found in italicized text. Thank you for allowing me to be part of the clinical care of this patient! I look forward to continued participation in the patient s care with you. Please do not hesitate to call with any questions. Sincerely, Willow Wilkins MD Associate Staff Movement disorders [facility] [place] Olena Gomez MD MS Movement Disorder Fellow, PGY-6 [facility] documented in this encounter [facility] 02-03-2025 Note HNO ID: [id number] Author: WILLOW WILKINS MD Service: ? Author Type: Physician Type: Progress Notes Filed: 02/06/2025 12:29 Note Text: [facility] - NEW PATIENT EVALUATION Primary Movement Disorders Neurologist: Willow Wilkins MD Primary Movement Disorders JAVAN: I had the pleasure of evaluating Mr. Ivey in our clinic today. He is a 44 year old left-handed male who presents for evaluation of tardive dyskinesia since >10 years . Subjective HISTORY OF PRESENT ILLNESS: Initial HPI Tahria Ivey is a 44-year-old male with a history of bipolar affective disorder, MDD, SAMRA, tremors, and tardive dyskinsia presenting with concerns about tardive dyskinesia and tremor. He is from [facility] and follows with a local psychiatry team. Chart Review: Per records he is currently on fluoxetine, lamotrigine, propranolol, and valbenazine. He saw his psychiatry [employer]PERINTEND[employer] on 01/25/2025 where he asked for a weaning protocol for his ingrezza and propranolol so we would be better able to appreciate his movements at the appointment today. He was instructed to decrease Ingrezza to 40 mg daily and decrease Propranolol to every other day for 1 week, then every 3 days for 1 week, then stop medication. August 2024 he was switched from Abilify to Caplyta (lumateperone) due to akathesia and increased tremors. Around September 2024 was put on a higher dose of caplyta (lumateperone) which resulted in excessive blinking, twitching, movement of his neck, jaw clenching, and increased anxiety prompting discontinuation of medication in October and avoidance of SGA by psychiatry provider. He was placed on lamictal in October 2024 for mood stabilization and Ingrezza was increased to 60mg for TD management. Last visit with a Neurologist was 05/05/[address] Nadia Swift with [facility]. Per note at this visit he observed abnormal [id number] testing indicating ataxia for which MRI brain W/WO was ordered and was completed 05/18/[address] 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 He recommended psychiatry consider non-dopamine blocking agents for management of psychiatry pathology. History Obtained Today: Tahira reports a long-standing history of involuntary tongue movements and hand postures, which have progressively worsened over time. Approximately one year ago, he began experiencing an inability to sit still and the onset of tremors, which have also progressively worsened. These symptoms are exacerbated by stress, overstimulation, and certain activities such as holding a screwdriver or flashlight. He notes a constant urge to move, particularly at night, which disrupts his sleep. He also reports excessive sweating, which began this year, and neck pain, which he attributes to his involuntary movements. He denies any falls due to his movements. Tahira has a history of bipolar disorder, for which he was previously treated with aripiprazole for over 10 years. He believes this medication may have contributed to his current symptoms. He also has a history of risperidone use, but cannot recall the duration. He has tried multiple medications for his symptoms, including benztropine, Austedo, and propranolol, but did not find them effective. He is currently taking fluoxetine 20 mg QHS, lamotrigine 50 mg QHS, and Ingrezza 40 mg QAM. He recently decreased his Ingrezza dose from 60 mg to 40 mg and discontinued propranolol 60 mg, which he was taking every 3 days with the goal of having his symptoms be worse for this appointment. He reports that Ingrezza provides some relief, but he does not think the propranolol helped. He denies any worsening in his tremor after discontinuing propranolol. He has not tried benzodiazepines. Tahira reports that his symptoms improved after discontinuing aripiprazole and Austedo, but have remained stable over the past year. He denies any family history of tremors, Parkinson's disease, or dementia. He has a family history of multiple sclerosis in his father and type 1 diabetes in his brother. He denies any history of hypertension, hypercholesterolemia, or diabetes. He has a history of cholecystectomy. He denies any tobacco, marijuana, or other drug use. He rarely consumes alcohol and did not notice any improvement in his tremor with alcohol consumption. Movement Disorders Medications Schedule - as of the start of the visit: Medications AM PM fluoxetine 20 mg 1 lamotrigine 25 mg 2 valbenazine 60 mg 1 propranolol 60 mg 1 Other Movement Disorder Prior Therapies Dutetrabenazine, Valbenazine Bneztropine Questionnaires Review of Systems: Constitutional: (+) heat intolerance, (+) excessive sweating, (+) insomnia, (+) daytime fatigue Ears/Nose/Mouth/Throat: (+) choking on saliva Neck: (+) neck pain Respiratory: (+) cough Genitourinary: (+) n (more content not included)... [facility] 01-25-2025 History of Presen t illness Narrative Images from the original note were not included. HPI: Tahira Ivey is a 44 y.o. male with a history of bipolar affective disorder, MDD, SAMRA, tremors, and tardive dyskinesia. Patient is here today for follow-up. Patient is accompanied by his , Flor. Patient was started on Fluoxetine at his last visit on 11/30/24. He states that he feels his mood has improved since last visit. He recently went on vacation with his family to [place], [place]. He states he was able to drive down there and back without any issues or exacerbation of his tremors. He is seeing movement disorder specialist at [facility] on February 03. He is wanting to wean down on his Propranolol and Ingrezza to see if his movements will increase and give the specialist a better idea of his baseline and where to go with treatment. Saw PCP 12/08/24 for complaints of weight loss, sweating and urinary frequency. He had a work-up with blood work done on 12/08/24 that was unremarkable. He states she is wanting to do a CT in the future but he is holding off for now until he sees movement specialist. SUBJECTIVE: PAST MEDICAL HISTORY: Past Medical History: Diagnosis Date Arthralgia Asymptomatic microscopic hematuria Bipolar disorder (HCC) Bursitis of shoulder, right Cyst of tendon sheath Dyspnea 09/08/2023 Family history of multiple sclerosis Hx of psychiatric hospitalization [facility] [place] in his 20s Lumbar back pain Tardive dyskinesia Tremor MEDICATIONS: Current Outpatient Medications Medication Instructions FLUoxetine (PROZAC) 20 mg, Oral, Daily lamoTRIgine (LAMICTAL) 50 mg, Oral, Daily propranolol LA (INDERAL LA) 60 mg, Oral, Daily, Do not crush, chew, or split. valbenazine tosylate (INGREZZA) 40 mg, Oral, Daily ALLERGIES: Allergies Allergen Reactions Morphine Hives Severe itching Penicillins Rash SURGICAL HISTORY: Past Surgical History: Procedure Laterality Date CHOLECYSTECTOMY CYST REMOVAL Bilateral breast CYST REMOVAL back of neck SHOULDER ARTHROSCOPY Right 07/31/2023 DR JANE VASECTOMY WISDOM TOOTH EXTRACTION Right 11/2023 right upper FAMILY HISTORY: Family History Problem Relation Name Age of Onset Vision loss Mother Sandra valencia Multiple sclerosis Father Juve Ivey Vision loss Father Juve Ivey Diabetes Brother Ari Ivey COPD Other mothers side Rheum arthritis Other mothers side Fibromyalgia Other mothers side Arthritis Maternal Grandmother Brinda Heatonmeghan Hearing loss Maternal Grandmother Brinda Heatonmeghan SOCIAL HISTORY: Social History Tobacco Use Smoking status: Never Smokeless tobacco: Never Vaping Use Vaping status: Never Used Substance Use Topics Alcohol use: Not Currently Comment: caffiene- 3 sweet tea and occasion pop Drug use: Never Patient Care Team: Montrell Serrano MD as PCP - General (Family Medicine) Georgia Davey NP as Referring Physician (Family Medicine) ISMAEL Worley as Nurse Practitioner (Behavioral Health) Nadia Swift DO as Neurologist (Neurology) PSYCHIATRIC REVIEW OF SYMPTOMS AND MENTAL STATUS EXAM ROS: Patient denies fatigue, malaise, night sweats, weight loss, weight gain, cough, SOB, palpitations, chest pain, insomnia, dysphagia, abdominal pain, N/V/D, pruritus, rash, headache, dizziness, seizures, tremors, headache. Appearance Appearance: Normal grooming and hygiene. Appears stated age. Dressed appropriately for weather. Behavior Calm, cooperative, pleasant. Good posture. Psychomotor Activity Repetitive movements and Tremors Eye contact Good Speech Normal, clear, regular rate, rhythm and volume Affect Full range. Stable. Appropriate and congruent with mood. Mood Euthymic Thought Process Organized, logical, and goal directed Thought Content: Denies suicidal and homicidal ideation. Perception: Denies auditory or visual hallucinations. No evidence of delusions. Denies derealization and depersonalization. Cognition Alert and attentive during visit Memory Immediate, recent and remote memory intact Insight Good. Acknowledges predominant symptoms of illness and need for treatment Judgement Good. Able to make reasonable life decisions. OBJECTIVE: Visit Vitals BP 108/72 (BP Location: Right arm, Patient Position: Sitting) Pulse 67 Wt 192 lb BMI 26.04 kg/m Smoking Status Never BSA 2.1 m Lab Results Component Value Date TSH 1.36 12/08/2024 Lab Results Component Value Date GLU 95 12/08/2024 GLU NEGATIVE 12/08/2024 CALCIUM 9.3 12/08/2024 NA 139 12/08/2024 K 4.1 12/08/2024 CO2 25 12/08/2024 CL 106 12/08/2024 BUN 11 12/08/2024 CREATININE 1.11 12/08/2024 Lab Results Component Value Date WBC 7.3 12/08/2024 HGB 15.7 12/08/2024 HCT 46.0 12/08/2024 MCV 93.3 12/08/2024 PLT 321 12/08/2024 Lab Results Component Value Date CHOL 141 06/14/2024 Lab Results Component Value Date HDL 47 06/14/2024 Lab Results Component Value Date LDLCALC 75 06/14/2024 Lab Results Component Value Date TRIG 100 06/14/2024 ASSESSMENT AND PLAN: Impression: Patient has noticed improvement in mood with addition of Prozac. He is meeting with [facility] movement disorder specialist on February 03. He is requesting to wean down his Ingrezza and Propranolol doses to see if he can exacerbate symptoms and given specialist better assessment of what is going on. He was given both verbal and written instructions on how to wean down these medications. Assessment/Plan Diagnoses and all orders for this visit: Current episode of major depressive disorder without prior episode, unspecified depression episode severity Bipolar 2 disorder (HCC) - lamoTRIgine (LaMICtal) 25 MG tablet; Take 2 tablets (50 mg) by mouth Daily SAMRA (generalized anxiety disorder) - FLUoxetine (PROzac) 20 MG capsule; Take 1 capsule (20 mg) by mouth Daily Tremor Tardive dyskinesia - valbenazine tosylate (Ingrezza) 40 MG capsule; Take 1 capsule (40 mg) by mouth Daily for 14 days - FLUoxetine (PROzac) 20 MG capsule; Take 1 capsule (20 mg) by mouth Daily - lamoTRIgine (LaMICtal) 25 MG tablet; Take 2 tablets (50 mg) by mouth Daily Treatment Plan/Recommendations: - Decrease Ingrezza to 40 mg daily. 2 weeks of samples given to patient today. - Decrease Propranolol to every other day for 1 week, then every 3 days for 1 week, then stop medication. - Continue Lamictal 50 mg daily for bipolar disorder. - Continue Fluoxetine 20 mg for depression and anxiety. - Follow up with movement disorder specialist on February 03. - RTC in 1 month. Discussed any medication changes and follow-up plan with patient. Encouraged patient to call office sooner if symptoms worsen or if any questions/concerns arise. Patient was seen Face to Face, Total time spent with patient was 22 minutes, which includes reviewing chart documents, previous notes/records, counseling and discussion with patient and/or coordination of care as described above. documented in this encounter [facility] 01-24-2025 History of Presen t illness Narrative Associated Problem(s): Mixed bipolar affective disorder, mild (HCC) Continue with psych Associated Problem(s): Tardive dyskinesia Working w psych Also has movement disorder Images from the original note were not included. Tahira Ivey is a 44 y.o. male presents with chief complaint of Weight Check HPI: Here for recheck. Last appt was seen for unintentional weight loss. We completed blood work, and then were waiting on a response about ordering CT scan for further evaluation. Has lost 18 pounds since last visit He does admit to a lot of stressors work and mental health. He sees psych tomorrow, wants to wean off his tremor meds as well as TD med Also had mood stabilizer changed He is not having any red flag sxs at this time Would like to hold on CT scans, also has an appt with movement specialist at [facility] on 02/03/25 SUBJECTIVE: MEDICATIONS: Current Outpatient Medications Medication Instructions FLUoxetine (PROZAC) 20 mg, Oral, Daily lamoTRIgine (LAMICTAL) 50 mg, Oral, Daily propranolol LA (INDERAL LA) 60 mg, Oral, Daily, Do not crush, chew, or split. Valbenazine Tosylate (Ingrezza) 60 MG capsule 1 capsule, Oral, Daily ALLERGIES: Allergies Allergen Reactions Morphine Hives Severe [...] Diagnosis Date Arthralgia Asymptomatic microscopic hematuria Bipolar disorder (HCC) Bursitis of shoulder, right Cyst of tendon sheath Dyspnea 09/08/2023 Family history of multiple sclerosis Hx of psychiatric hospitalization [facility] his 20s Lumbar back pain Tardive dyskinesia Tremor Past Surgical History: Procedure Laterality Date CHOLECYSTECTOMY CYST REMOVAL Bilateral breast CYST REMOVAL back of neck SHOULDER ARTHROSCOPY Right 07/31/2023 DR JANE VASECTOMY WISDOM TOOTH EXTRACTION Right 11/2023 right upper family history includes Arthritis in his maternal grandmother; COPD in an other family member; Diabetes in his brother; Fibromyalgia in an other family member; Hearing loss in his maternal grandmother; Multiple sclerosis in his father; Rheum arthritis in an other family member; Vision loss in his father and mother. OBJECTIVE: Visit Vitals BP 118/76 (BP Location: Left arm, Patient Position: Sitting, BP Cuff Size: Adult long) Pulse 71 Temp 97.8 F (Temporal) Resp 18 Wt 192 lb SpO2 97% BMI 26.04 kg/m Smoking Status Never BSA 2.1 m Physical Exam Vitals and nursing note reviewed. Constitutional: Appearance: Normal appearance. HENT: Head: Normocephalic. Right Ear: External ear normal. Left Ear: External ear normal. Nose: Nose normal. Mouth/Throat: Mouth: Mucous membranes are moist. Pharynx: Oropharynx is clear. Eyes: Extraocular Movements: Extraocular movements intact. Conjunctiva/sclera: Conjunctivae normal. Cardiovascular: Rate and Rhythm: Normal rate and regular rhythm. Pulses: Normal pulses. Heart sounds: Normal heart sounds. Pulmonary: Effort: Pulmonary effort is normal. Breath sounds: Normal breath sounds. No wheezing or rhonchi. Abdominal: General: Bowel sounds are normal. Palpations: Abdomen is soft. Musculoskeletal: Cervical back: Neck supple. Right lower leg: No edema. Left lower leg: No edema. Lymphadenopathy: Cervical: No cervical adenopathy. Skin: General: Skin is warm and dry. Capillary Refill: Capillary refill takes 2 to 3 seconds. Neurological: Mental Status: He is alert. Comments: TD movements noted Tremors noted as well Psychiatric: Mood and Affect: Mood normal. Behavior: Behavior normal. Thought Content: Thought content normal. Judgment: Judgment normal. ASSESSMENT AND PLAN: Follow up in about 8 weeks (around 03/21/2025) for Recheck. Problem List Items Addressed This Visit Tardive dyskinesia Working w psych Also has movement disorder Mixed bipolar affective disorder, mild (HCC) Continue with psych Weight loss, unintentional - Primary Had labs completed no acute abnormals Mid December sent back my chart message about ordering CT , pt did not respond to this Discuss w him today he wants to wait until after seeing movement specialist No bloody stools, occ diarrhea but more related what foods he eats since no gallbladder Associated Problem(s): Weight loss, unintentional Had labs completed no acute abnormals Mid December sent back my chart message about ordering CT , pt did not respond to this Discuss w him today he wants to wait until after seeing movement specialist No bloody stools, occ diarrhea but more related what foods he eats since no gallbladder documented in this encounter [facility] 11-30-2024 History of Presen t illness Narrative Images from the original note were not included. HPI: Tahira Ivey is a 43 y.o. male with a history of bipolar affective disorder and tardive dyskinesia. Patient is here today for follow-up. Patient is accompanied by his , Flor. No medication changes were made at his last appointment on 11/09/24. Patient states that he has not seen any changes in his movements since our last visit. He reports tremors are stable with use of Propranolol. He also reports a stable mood since being on the Lamictal. He is reporting anxiety and depression today. He states that a lot of it is due to his environment at work. 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 He continues to complain of some sweating, feeling hot , and frequent urination that began prior to starting Ingrezza and Lamictal. He is scheduled to see his PCP at the end of the month. He has an appointment with a movement disorder specialist at [facility] on February 03. SUBJECTIVE: PAST MEDICAL HISTORY: Past Medical History: Diagnosis Date Arthralgia Asymptomatic microscopic hematuria Bipolar disorder Bursitis of shoulder, right Cyst of tendon sheath Dyspnea 09/08/2023 Family history of multiple sclerosis Hx of psychiatric hospitalization [facility] [place] in his 20s Lumbar back pain Tardive dyskinesia Tremor MEDICATIONS: Current Outpatient Medications Medication Instructions FLUoxetine (PROZAC) 20 mg, Oral, Daily lamoTRIgine (LAMICTAL) 50 mg, Oral, Daily propranolol LA (INDERAL LA) 60 mg, Oral, Daily, Do not crush, chew, or split. Valbenazine Tosylate (Ingrezza) 60 MG capsule 1 capsule, Oral, Daily ALLERGIES: Allergies Allergen Reactions Morphine Hives Severe itching Penicillins Rash SURGICAL HISTORY: Past Surgical History: Procedure Laterality Date CHOLECYSTECTOMY CYST REMOVAL Bilateral breast CYST REMOVAL back of neck SHOULDER ARTHROSCOPY Right 07/31/2023 DR JANE VASECTOMY WISDOM TOOTH EXTRACTION Right 11/2023 right upper FAMILY HISTORY: Family History Problem Relation Name Age of Onset Vision loss Mother Sandra valencia Multiple sclerosis Father Juve Ivey Vision loss Father Juve Ivey Diabetes Brother Ari Ivey COPD Other mothers side Rheum arthritis Other mothers side Fibromyalgia Other mothers side Arthritis Maternal Grandmother Brinda Oro Hearing loss Maternal Grandmother Brinda Oro SOCIAL HISTORY: Social History Tobacco Use Smoking status: Never Smokeless tobacco: Never Vaping Use Vaping status: Never Used Substance Use Topics Alcohol use: Not Currently Comment: caffiene- 3 sweet tea and occasion pop Drug use: Never Patient Care Team: Montrell Serrano MD as PCP - General (Family Medicine) Georgia Davey NP as Referring Physician (Family Medicine) MAIKEL Worley-BC as Nurse Practitioner (Behavioral Health) Nadia Swift DO as Neurologist (Neurology) Armen Hernández LPC as Freezing Room Worker (Behavioral Health) PSYCHIATRIC REVIEW OF SYMPTOMS AND MENTAL STATUS EXAM ROS: Patient denies fatigue, malaise, night sweats, weight loss, weight gain, cough, SOB, palpitations, chest pain, insomnia, dysphagia, abdominal pain, N/V/D, pruritus, rash, headache, dizziness, seizures, tremors, headache. Appearance Appearance: Normal grooming and hygiene. Appears stated age. Dressed appropriately for weather. Behavior Calm, cooperative, pleasant. Good posture. Psychomotor Activity Repetitive movements Eye contact Good Speech Normal, clear, regular rate, rhythm and volume Affect Full range. Stable. Appropriate and congruent with mood. Mood Anxious and Depressed Thought Process Organized, logical, and goal directed Thought Content: Denies suicidal and homicidal ideation. Perception: Denies auditory or visual hallucinations. No evidence of delusions. Denies derealization and depersonalization. Cognition Alert and attentive during visit Memory Immediate, recent and remote memory intact Insight Good. Acknowledges predominant symptoms of illness and need for treatment Judgement Good. Able to make reasonable life decisions. OBJECTIVE: Visit Vitals BP 116/64 (BP Location: Right arm, Patient Position: Sitting) Pulse 86 Wt 199 lb BMI 26.99 kg/m Smoking Status Never BSA 2.14 m Lab Results Component Value Date TSH 1.76 06/14/2024 Lab Results Component Value Date GLU NEGATIVE 06/14/2024 CALCIUM 9.1 06/14/2024 NA 140 06/14/2024 K 4.3 06/14/2024 CO2 26 06/14/2024 CL 106 06/14/2024 BUN 11 06/14/2024 CREATININE 1.12 06/14/2024 Lab Results Component Value Date WBC 8.5 06/14/2024 HGB 15.8 06/14/2024 HCT 46.9 06/14/2024 MCV 90.7 06/14/2024 PLT 359 06/14/2024 Lab Results Component Value Date CHOL 141 06/14/2024 Lab Results Component Value Date HDL 47 06/14/2024 Lab Results Component Value Date LDLCALC 75 06/14/2024 Lab Results Component Value Date TRIG 100 06/14/2024 ASSESSMENT AND PLAN: Impression: Patient had increased TD movements with higher dose of Caplyta. He has been 60 mg of Ingrezza for 6 weeks with minimal improvement in movements. He desires to continue this current dose for now. He feels that tremors are controlled with Propranolol. He still has irritability, anxiety, and depression, which he contributes to stress at his job. I educated on expectations of Ingrezza when it comes to helping his movements. I agreed that a movement disorder specialist is needed for further evaluation so they will keep appointment with [facility] that is scheduled in January. We discussed his mood and ways to improve this as he feels this makes his movements worse. He is agreeable to start Fluoxetine for his depression and anxiety. Assessment/Plan Diagnoses and all orders for this visit: Bipolar 2 disorder ([facility]) - lamoTRIgine (LaMICtal) 25 MG tablet; Take 2 tablets (50 mg) by mouth Daily SAMRA (generalized anxiety disorder) ([facility]) - FLUoxetine (PROzac) 20 MG capsule; Take 1 capsule (20 mg) by mouth Daily Tremor - propranolol LA (Inderal LA) 60 MG 24 hr capsule; Take 1 capsule (60 mg) by mouth Daily Do not crush, chew, or split. Tardive dyskinesia - Valbenazine Tosylate (Ingrezza) 60 MG capsule; Take 1 capsule by mouth Daily Current episode of major depressive disorder without prior episode, unspecified depression episode severity ([facility]) Treatment Plan/Recommendations: - Continue Ingrezza 60 mg for TD. - Continue Propranolol for tremors. - Continue Lamictal 50 mg daily for bipolar disorder. - Start Fluoxetine 20 mg for depression and anxiety. - Follow up with movement disorder specialist in January. - Follow up with PCP at the end of the month to discuss sweating and frequent urination. - RTC in 6 weeks. Discussed any medication changes and follow-up plan with patient. Encouraged patient to call office sooner if symptoms worsen or if any questions/concerns arise. Patient was seen Face to Face, Total time spent with patient was 30 minutes, which includes reviewing chart documents, previous notes/records, counseling and discussion with patient and/or coordination of care as described above. documented in this encounter [facility] 11-09-2024 History of Presen t illness Narrative Images from the original note were not included. HPI: Tahira Ivey is a 43 y.o. male with a history of bipolar affective disorder and tardive dyskinesia. Patient is here today for follow-up. At patient's last visit on 10/19/24, his Caplyta was discontinued and Ingrezza was increased to 60 mg due to increased TD movements. He was also put on Lamictal for history of bipolar disorder. He has been taking 50 mg of the Lamictal since 11/03. He is now taking Ingrezza in the morning to see if helps more with movements during the day. He states driving is still difficult for him. He feels his movements have slightly improved since last visit. He states tremors are not bothering him anymore and feel that the Propranolol is working well. He is still under a lot of stress at work, which is related to bullying. He states that he recently filed a case with because of this and it waiting to hear back from them. He complains of some sweating and feeling hot that began prior to starting Ingrezza and Lamictal. SUBJECTIVE: PAST MEDICAL HISTORY: Past Medical History: Diagnosis Date Arthralgia Asymptomatic microscopic hematuria Bipolar disorder Bursitis of shoulder, right Cyst of tendon sheath Dyspnea 09/08/2023 Family history of multiple sclerosis Hx of psychiatric hospitalization [facility] [place] in his 20s Lumbar back pain Tardive dyskinesia Tremor MEDICATIONS: Current Outpatient Medications Medication Instructions lamoTRIgine (LAMICTAL) 50 mg, Oral, Daily propranolol LA (INDERAL LA) 60 mg, Oral, Daily, Do not crush, chew, or split. Valbenazine Tosylate (Ingrezza) 60 MG capsule 1 capsule, Oral, Daily ALLERGIES: Allergies Allergen Reactions Morphine Hives Severe itching Penicillins Rash SURGICAL HISTORY: Past Surgical History: Procedure Laterality Date CHOLECYSTECTOMY CYST REMOVAL Bilateral breast CYST REMOVAL back of neck SHOULDER ARTHROSCOPY Right 07/31/2023 DR JANE VASECTOMY WISDOM TOOTH EXTRACTION Right 11/2023 right upper FAMILY HISTORY: Family History Problem Relation Name Age of Onset Vision loss Mother Sandra valencia Multiple sclerosis Father Juve Ivey Vision loss Father Juve Ivey Diabetes Brother Ari Ivey COPD Other mothers side Rheum arthritis Other mothers side Fibromyalgia Other mothers side Arthritis Maternal Grandmother Brinda Oro Hearing loss Maternal Grandmother Brinda Heatonmeghan SOCIAL HISTORY: Social History Tobacco Use Smoking status: Never Smokeless tobacco: Never Vaping Use Vaping status: Never Used Substance Use Topics Alcohol use: Not Currently Comment: caffiene- 3 sweet tea and occasion pop Drug use: Never Patient Care Team: Montrell Serrano MD as PCP - General (Family Medicine) Georgia Davey NP as Referring Physician (Family Medicine) ISMAEL Worley as Nurse Practitioner (Behavioral Health) Nadia Swift DO as Neurologist (Neurology) Armen Hernández LPC as Freezing Room Worker (Behavioral Health) PSYCHIATRIC REVIEW OF SYMPTOMS AND MENTAL STATUS EXAM ROS: Patient denies fatigue, malaise, night sweats, weight loss, weight gain, cough, SOB, palpitations, chest pain, dysphagia, abdominal pain, N/V/D, pruritus, rash, headache, dizziness, seizures, headache. Appearance Appearance: Normal grooming and hygiene. Appears stated age. Dressed appropriately for weather. Behavior Calm, cooperative, pleasant. Good posture. Psychomotor Activity Repetitive movements and Tremors Eye contact Good Speech Normal, clear, regular rate, rhythm and volume Affect Full range. Stable. Appropriate and congruent with mood. Mood Irritable Thought Process Organized, logical, and goal directed Thought Content: Denies suicidal and homicidal ideation. Perception: Denies auditory or visual hallucinations. No evidence of delusions. Denies derealization and depersonalization. Cognition Alert and attentive during visit Memory Immediate, recent and remote memory intact Insight Good. Acknowledges predominant symptoms of illness and need for treatment Judgement Good. Able to make reasonable life decisions. OBJECTIVE: Visit Vitals BP 110/70 (BP Location: Left arm, Patient Position: Sitting) Pulse 67 Wt 199 lb BMI 26.99 kg/m Smoking Status Never BSA 2.14 m AIMS Score: Facial and Oral Movements Muscles of Facial Expression: Moderate Lips and Perioral Area: Minimal Jaw: None, normal Tongue: None, normal Extremity Movements Upper (Arms, Wrists, Hands, Fingers): Minimal Lower (Legs, Knees, Ankles, Toes): Minimal Trunk Movements Neck, Shoulders, Hips: Minimal Overall Severity Incapacitation Due to Abnormal Movements: Mild Patient's Awareness of Abnormal Movements (Rate Only Patient's Report): Aware, mild distress Dental Status Current Problems with Teeth and/or Dentures: No Does patient usually wear dentures?: No Lab Results Component Value Date TSH 1.76 06/14/2024 Lab Results Component Value Date GLU NEGATIVE 06/14/2024 CALCIUM 9.1 06/14/2024 NA 140 06/14/2024 K 4.3 06/14/2024 CO2 26 06/14/2024 CL 106 06/14/2024 BUN 11 06/14/2024 CREATININE 1.12 06/14/2024 Lab Results Component Value Date WBC 8.5 06/14/2024 HGB 15.8 06/14/2024 HCT 46.9 06/14/2024 MCV 90.7 06/14/2024 PLT 359 06/14/2024 Lab Results Component Value Date CHOL 141 06/14/2024 Lab Results Component Value Date HDL 47 06/14/2024 Lab Results Component Value Date LDLCALC 75 06/14/2024 Lab Results Component Value Date TRIG 100 06/14/2024 ASSESSMENT AND PLAN: Impression: Patient had increased TD movements with higher dose of Caplyta. He has been 60 mg of Ingrezza for 3 weeks with some improvement in movements. He feels that tremors are controlled with Propranolol. He still has irritability, which he contributes to stress at his job. We discussed that it can take up to 2 months of treatment on Ingrezza in order to see maximum benefit with movements. He is agreeable to continue medications at current dose due to his improvement. Will consider increasing Lamictal to 100 mg at next visit if he is still experiencing mood symptoms/problems. Assessment/Plan Diagnoses and all orders for this visit: Bipolar 2 disorder (CMS/HCC) - lamoTRIgine (LaMICtal) 25 MG tablet; Take 2 tablets (50 mg) by mouth Daily SAMRA (generalized anxiety disorder) (CMS/HCC) Tardive dyskinesia Tremor - propranolol LA (Inderal LA) 60 MG 24 hr capsule; Take 1 capsule (60 mg) by mouth Daily Do not crush, chew, or split. Treatment Plan/Recommendations: - Continue Ingrezza 60 mg for TD. - Continue Propranolol for tremors. - Continue Lamictal 50 mg daily for bipolar disorder. - RTC in 3 weeks. Discussed any medication changes and follow-up plan with patient. Encouraged patient to call office sooner if symptoms worsen or if any questions/concerns arise. Patient was seen Face to Face, Total time spent with patient was 20 minutes, which includes reviewing chart documents, previous notes/records, counseling and discussion with patient and/or coordination of care as described above. documented in this encounter [facility] 10-19-2024 History of Presen t illness Narrative Images from the original note were not included. HPI: Tahira Ivey is a 43 y.o. male with a history of bipolar affective disorder and tardive dyskinesia. Patient is here today for follow-up. At patient's last visit on 10/05/24, his Caplyta was increased to 21 mg. He states he took the higher dose of medication for 7 days and then started experiencing excessive blinking, twitching, movement of his neck, jaw clenching, and increased anxiety. He states that he has been off of his medication since Thursday because of these side effects. He reports he had some increased urination but this has resolved. He is not sure if his other symptoms have improved since stopping the medication. SUBJECTIVE: PAST MEDICAL HISTORY: Past Medical History: Diagnosis Date Arthralgia Asymptomatic microscopic hematuria Bipolar disorder Bursitis of shoulder, right Cyst of tendon sheath Dyspnea 09/08/2023 Family history of multiple sclerosis Hx of psychiatric hospitalization [facility] [place] in his 20s Lumbar back pain Tardive dyskinesia Tremor MEDICATIONS: Current Outpatient Medications Medication Instructions Ingrezza 60 mg, Oral, Daily lamoTRIgine (LaMICtal) 25 MG tablet Take 1 tablet (25 mg) by mouth Daily for 14 days, THEN 2 tablets (50 mg) Daily for 14 days. propranolol LA (INDERAL LA) 60 mg, Oral, Daily, Do not crush, chew, or split. ALLERGIES: Allergies Allergen Reactions Morphine Hives Severe itching Penicillins Rash SURGICAL HISTORY: Past Surgical History: Procedure Laterality Date CHOLECYSTECTOMY CYST REMOVAL Bilateral breast CYST REMOVAL back of neck SHOULDER ARTHROSCOPY Right 07/31/2023 DR JANE VASECTOMY WISDOM TOOTH EXTRACTION Right 11/2023 right upper FAMILY HISTORY: Family History Problem Relation Name Age of Onset Vision loss Mother Sandra valencia Multiple sclerosis Father Juve Ivey Vision loss Father Juve Ivey Diabetes Brother Ari Ivey COPD Other mothers side Rheum arthritis Other mothers side Fibromyalgia Other mothers side Arthritis Maternal Grandmother Brinda Heatonmeghan Hearing loss Maternal Grandmother Brinda Heatonmeghan SOCIAL HISTORY: Social History Tobacco Use Smoking status: Never Smokeless tobacco: Never Vaping Use Vaping status: Never Used Substance Use Topics Alcohol use: Not Currently Comment: caffiene- 3 sweet tea and occasion pop Drug use: Never Patient Health Questionnaire-9 Score: 12 SAMRA-7 Total Score: 14 Patient Care Team: Montrell Serrano MD as PCP - General (Family Medicine) Georgia Davey NP as Referring Physician (Family Medicine) JESSICA Worley as Nurse Practitioner (Behavioral Health) Nadia Swift DO as Neurologist (Neurology) Armen Hernández LPC as Freezing Room Worker (Behavioral Health) PSYCHIATRIC REVIEW OF SYMPTOMS AND MENTAL STATUS EXAM ROS: Patient denies fatigue, malaise, night sweats, weight loss, weight gain, cough, SOB, palpitations, chest pain, insomnia, dysphagia, abdominal pain, N/V/D, pruritus, rash, headache, dizziness, seizures, headache. Appearance Appearance: Normal grooming and hygiene. Appears stated age. Dressed appropriately for weather. Behavior Calm, cooperative, pleasant. Good posture. Psychomotor Activity Repetitive movements and Restless Eye contact Good Speech Normal, clear, regular rate, rhythm and volume Affect Full range. Stable. Appropriate and congruent with mood. Mood Irritable Thought Process Organized, logical, and goal directed Thought Content: Denies suicidal and homicidal ideation. Perception: Denies auditory or visual hallucinations. No evidence of delusions. Denies derealization and depersonalization. Cognition Alert and attentive during visit Memory Immediate, recent and remote memory intact Insight Good. Acknowledges predominant symptoms of illness and need for treatment Judgement Good. Able to make reasonable life decisions. OBJECTIVE: Visit Vitals BP 112/69 (BP Location: Right arm, Patient Position: Sitting) Pulse 68 Wt 203 lb BMI 27.53 kg/m Smoking Status Never BSA 2.16 m AIMS Score: Facial and Oral Movements Muscles of Facial Expression: None, normal Lips and Perioral Area: None, normal Jaw: Mild Tongue: None, normal Extremity Movements Upper (Arms, Wrists, Hands, Fingers): None, normal Lower (Legs, Knees, Ankles, Toes): Minimal Trunk Movements Neck, Shoulders, Hips: Moderate Overall Severity Incapacitation Due to Abnormal Movements: Mild Patient's Awareness of Abnormal Movements (Rate Only Patient's Report): Aware, mild distress Dental Status Current Problems with Teeth and/or Dentures: No Does patient usually wear dentures?: No Lab Results Component Value Date TSH 1.76 06/14/2024 Lab Results Component Value Date GLU NEGATIVE 06/14/2024 CALCIUM 9.1 06/14/2024 NA 140 06/14/2024 K 4.3 06/14/2024 CO2 26 06/14/2024 CL 106 06/14/2024 BUN 11 06/14/2024 CREATININE 1.12 06/14/2024 Lab Results Component Value Date WBC 8.5 06/14/2024 HGB 15.8 06/14/2024 HCT 46.9 06/14/2024 MCV 90.7 06/14/2024 PLT 359 06/14/2024 Lab Results Component Value Date CHOL 141 06/14/2024 Lab Results Component Value Date HDL 47 06/14/2024 Lab Results Component Value Date LDLCALC 75 06/14/2024 Lab Results Component Value Date TRIG 100 06/14/2024 ASSESSMENT AND PLAN: Impression: Patient had increased TD movements with higher dose of Caplyta. He has been off medication since Thursday with some slight improvement in symptoms. He is concerned about these movements and is agreeable to increase his Ingrezza. He was informed that he may see improvement in movements in 2 weeks but can take up to 2 months of maximum benefit. His tremors appear to be controlled with Propranolol. He also remains concerned about this mood and irritability. Will avoid SGAs at this time due to history of negative side effects. Will start Lamictal for mood stabilization. He was educated on how to take medication as well as potential side effects, including rash. Assessment/Plan Diagnoses and all orders for this visit: Tardive dyskinesia - Valbenazine Tosylate (Ingrezza) 60 MG capsule; Take 60 mg by mouth Daily Bipolar 2 disorder (CMS/HCC) - lamoTRIgine (LaMICtal) 25 MG tablet; Take 1 tablet (25 mg) by mouth Daily for 14 days, THEN 2 tablets (50 mg) Daily for 14 days. SAMRA (generalized anxiety disorder) ([facility]) Treatment Plan/Recommendations: - Increase Ingrezza to 60 mg for TD. - Continue Propranolol for tremors. - Start Lamictal 25 mg daily for 14 days, then increase to 50 mg daily for bipolar disorder. - Discontinue Caplyta due to worsening TD. - RTC in 3 weeks. Discussed any medication changes and follow-up plan with patient. Encouraged patient to call office sooner if symptoms worsen or if any questions/concerns arise. Patient was seen Face to Face, Total time spent with patient was 20 minutes, which includes reviewing chart documents, previous notes/records, counseling and discussion with patient and/or coordination of care as described above. documented in this encounter [facility] 10-17-2024 Telephone encounter Note Spoke to patient. He stopped Caplyta on Thursday. Reports that side effects have improved a little but still having some. He is agreeable to come in Thursday to follow-up. Informed him to stay off Caplyta until we see him. Patient verbalized understanding. [facility] 10-17-2024 Miscellaneous Notes Spoke to patient. He stopped Caplyta on Thursday. Reports that side effects have improved a little but still having some. He is agreeable to come in Thursday to follow-up. Informed him to stay off Caplyta until we see him. Patient verbalized understanding. Patient called in stating that after taking his higher dose of Caplyta he started experiencing excessive blinking, body twitches, and high anxiety. Patient stated this started right after taking his increased dose and his symptoms were really bad on 10/13. Patient stated he stopped the medication on 10/14 and is still experiencing symptoms. documented in this encounter [facility] 10-17-2024 Telephone encounter Note Patient called in stating that after taking his higher dose of Caplyta he started experiencing excessive blinking, body twitches, and high anxiety. Patient stated this started right after taking his increased dose and his symptoms were really bad on 10/13. Patient stated he stopped the medication on 10/14 and is still experiencing symptoms. [facility] 09-14-2024 History of Presen t illness Narrative Images from the original note were not included. HPI: Tahira Ivey is a 43 y.o. male with a history of bipolar affective disorder and tardive dyskinesia. Patient is here today for follow-up. At patient's last visit on 08/10/24, he was started on Propranolol for tremors. He reports improvement in tremors and eye blinking. Her report tremors worsen when he gets excited. He states he still has some angry outbursts at work when someone is not doing their job. He states he still has problems with sleeping. He is seeing [facility] for counseling. SUBJECTIVE: PAST MEDICAL HISTORY: Past Medical History: Diagnosis Date Arthralgia Asymptomatic microscopic hematuria Bipolar disorder (CMS/HCC) Bursitis of shoulder, right Cyst of tendon sheath Dyspnea 09/08/2023 Family history of multiple sclerosis Hx of psychiatric hospitalization [facility] [place] in his 20s Lumbar back pain Tardive dyskinesia Tremor MEDICATIONS: Current Outpatient Medications Medication Instructions Caplyta 10.5 mg, Oral, Daily propranolol LA (INDERAL LA) 60 mg, Oral, Daily, Do not crush, chew, or split. valbenazine tosylate (INGREZZA) 40 mg, Oral, Daily ALLERGIES: Allergies Allergen Reactions Morphine Hives Severe itching Penicillins Rash SURGICAL HISTORY: Past Surgical History: Procedure Laterality Date CHOLECYSTECTOMY CYST REMOVAL Bilateral breast CYST REMOVAL back of neck SHOULDER ARTHROSCOPY Right 07/31/2023 DR JANE VASECTOMY WISDOM TOOTH EXTRACTION Right 11/2023 right upper FAMILY HISTORY: Family History Problem Relation Name Age of Onset Vision loss Mother Sandra valencia Multiple sclerosis Father Juve Ivey Vision loss Father Juve Ivey Diabetes Brother Ari Ivey COPD Other mothers side Rheum arthritis Other mothers side Fibromyalgia Other mothers side Arthritis Maternal Grandmother Brinda Heatonmeghan Hearing loss Maternal Grandmother Brinda Preethi SOCIAL HISTORY: Social History Tobacco Use Smoking status: Never Smokeless tobacco: Never Vaping Use Vaping status: Never Used Substance Use Topics Alcohol use: Not Currently Comment: caffiene- 3 sweet tea and occasion pop Drug use: Never Patient Care Team: Montrell Serrano MD as PCP - General (Family Medicine) Georgia Davey NP as Referring Physician (Family Medicine) ISMAEL Worley as Nurse Practitioner (Behavioral Health) Nadia Swift DO as Neurologist (Neurology) Armen Hernández LPC as Freezing Room Worker (Behavioral Health) PSYCHIATRIC REVIEW OF SYMPTOMS AND MENTAL STATUS EXAM ROS: Patient denies fatigue, malaise, night sweats, weight loss, weight gain, cough, SOB, palpitations, chest pain, dysphagia, abdominal pain, N/V/D, pruritus, rash, headache, dizziness, seizures, headache. Appearance Appearance: Normal grooming and hygiene. Appears stated age. Dressed appropriately for weather. Behavior Calm, cooperative, pleasant. Good posture. Psychomotor Activity Fidgety and Tremors Eye contact Good Speech Normal, clear, regular rate, rhythm and volume Affect Full range. Stable. Appropriate and congruent with mood. Mood Irritable Thought Process Organized, logical, and goal directed Thought Content: Denies suicidal and homicidal ideation. Perception: Denies auditory or visual hallucinations. No evidence of delusions. Denies derealization and depersonalization. Cognition Alert and attentive during visit Memory Immediate, recent and remote memory intact Insight Good. Acknowledges predominant symptoms of illness and need for treatment Judgement Fair OBJECTIVE: Visit Vitals BP 110/64 (BP Location: Right arm, Patient Position: Sitting) Pulse 67 Wt 210 lb BMI 28.48 kg/m Smoking Status Never BSA 2.2 m Lab Results Component Value Date TSH 1.76 06/14/2024 Lab Results Component Value Date GLU NEGATIVE 06/14/2024 CALCIUM 9.1 06/14/2024 NA 140 06/14/2024 K 4.3 06/14/2024 CO2 26 06/14/2024 CL 106 06/14/2024 BUN 11 06/14/2024 CREATININE 1.12 06/14/2024 Lab Results Component Value Date WBC 8.5 06/14/2024 HGB 15.8 06/14/2024 HCT 46.9 06/14/2024 MCV 90.7 06/14/2024 PLT 359 06/14/2024 Lab Results Component Value Date CHOL 141 06/14/2024 Lab Results Component Value Date HDL 47 06/14/2024 Lab Results Component Value Date LDLCALC 75 06/14/2024 Lab Results Component Value Date TRIG 100 06/14/2024 ASSESSMENT AND PLAN: Impression: Patient denies any current problems with mood despite being on a lower dose of Abilify. No safety concerns identified by myself or reported by patient. No evidence of active hypomania/greg today. His movements appear to be a combination of TD and parkinsonism. His TD has improved since being on VMAT2 inhibitor. He reports improvement in his tremors since starting Propranolol. Still having some ongoing anxiety, akathisia, and trouble with sleep. Discussed switching to a medication like Caplyta to help with these symptoms. Educated patient on possible side effects of this medication. Assessment/Plan Diagnoses and all orders for this visit: Bipolar 2 disorder ([facility]) - Lumateperone Tosylate (Caplyta) 10.5 MG capsule; Take 10.5 mg by mouth Daily Tardive dyskinesia Tremor Treatment Plan/Recommendations: - Continue Ingrezza 40 mg for TD. - Continue Propranolol for tremors. - Stop Abilify due to akathesia, increased anxiety. - Start Caplyta 10.5 mg daily for bipolar disorder. Titrate up to 42 mg based on response and tolerability. - Continue counseling for additional mental health support and treatment. - RTC in 3-4 weeks. Discussed any medication changes and follow-up plan with patient. Encouraged patient to call office sooner if symptoms worsen or if any questions/concerns arise. Patient was seen Face to Face, Total time spent with patient was 20 minutes, which includes reviewing chart documents, previous notes/records, counseling and discussion with patient and/or coordination of care as described above. documented in this encounter [facility] 08-10-2024 History of Presen t illness Narrative Images from the original note were not included. Tahira Ivey is a 43 y.o. male with a history of bipolar affective disorder and tardive dyskinesia who presents for psychiatric medication follow-up. HPI: At patient's last visit on 07/19/24, his Austedo was discontinued and he was started on Ingrezza 40 mg. He is taking his medication at night. He feels that his symptoms are the same since last visit. He denies any worsening symptoms. He denies any side effects from the Ingrezza. He feels that his mood is stable on Abilify. He continues to complain of problems with sleep, which is an ongoing issue for him. He has his first appointment with Armen for counseling on August 22. SUBJECTIVE: PAST MEDICAL HISTORY: Past Medical History: Diagnosis Date Arthralgia Asymptomatic microscopic hematuria Bipolar disorder (CMS/HCC) Bursitis of shoulder, right Cyst of tendon sheath Dyspnea 09/08/2023 Family history of multiple sclerosis Hx of psychiatric hospitalization [address] in his 20s Lumbar back pain Tardive dyskinesia Tremor ALLERGIES: Allergies Allergen Reactions Morphine Hives Severe itching Penicillins Rash SURGICAL HISTORY: Past Surgical History: Procedure Laterality Date CHOLECYSTECTOMY CYST REMOVAL Bilateral breast CYST REMOVAL back of neck SHOULDER ARTHROSCOPY Right 07/31/2023 DR JANE VASECTOMY WISDOM TOOTH EXTRACTION Right 11/2023 right upper FAMILY HISTORY: Family History Problem Relation Name Age of Onset Vision loss Mother Sandra valencia Multiple sclerosis Father Juve Ivey Vision loss Father Juve Ivey Diabetes Brother Ari Ivey COPD Other mothers side Rheum arthritis Other mothers side Fibromyalgia Other mothers side Arthritis Maternal Grandmother Brinda Oro Hearing loss Maternal Grandmother Brinda Oro SOCIAL HISTORY: Social History Tobacco Use Smoking status: Never Smokeless tobacco: Never Vaping Use Vaping status: Never Used Substance Use Topics Alcohol use: Not Currently Comment: caffiene- 3 sweet tea and occasion pop Drug use: Never Depression: Not at risk (08/10/2024) PHQ-2 PHQ-2 Score: 0 Patient Care Team: Montrell Serrano MD as PCP - General (Family Medicine) Georgia Davey NP as Referring Physician (Family Medicine) Kwame Fleming NP as Nurse Practitioner (Behavioral Health) Nadia Swift DO as Neurologist (Neurology) PSYCHIATRIC REVIEW OF SYMPTOMS AND MENTAL STATUS EXAM ROS: Patient denies fatigue, malaise, night sweats, weight loss, weight gain, cough, SOB, palpitations, chest pain, insomnia, dysphagia, abdominal pain, N/V/D, pruritus, rash, headache, dizziness, seizures, headache. Appearance Appearance: Casual dress, normal grooming and hygiene Behavior Cooperative, conversant, engaged, and with good eye contact. Bilateral hand tremors. Moving feet periodically during visit. No abnormal facial movements noted. Speech Normal, clear, regular rate, rhythm and volume Affect full affect appropriate with mood Mood euthymic Thought Process Organized and Clear Thought Content: Denies suicidal and homicidal ideation. Perception: Denies visual, auditory, and tactile hallucinations. Denies derealization and depersonalization. Orientation Appropriate to age Memory/Concentration Short term intact and chcf intact Insight/Judgement Good OBJECTIVE: Visit Vitals BP 126/72 (BP Location: Right arm, Patient Position: Sitting) Pulse 74 Wt 210 lb BMI 28.48 kg/m Smoking Status Never BSA 2.2 m Lab Results Component Value Date TSH 1.76 06/14/2024 Lab Results Component Value Date GLU NEGATIVE 06/14/2024 CALCIUM 9.1 06/14/2024 NA 140 06/14/2024 K 4.3 06/14/2024 CO2 26 06/14/2024 CL 106 06/14/2024 BUN 11 06/14/2024 CREATININE 1.12 06/14/2024 Lab Results Component Value Date WBC 8.5 06/14/2024 HGB 15.8 06/14/2024 HCT 46.9 06/14/2024 MCV 90.7 06/14/2024 PLT 359 06/14/2024 Lab Results Component Value Date CHOL 141 06/14/2024 Lab Results Component Value Date HDL 47 06/14/2024 Lab Results Component Value Date LDLCALC 75 06/14/2024 Lab Results Component Value Date TRIG 100 06/14/2024 ASSESSMENT AND PLAN: Impression: Patient denies any current problems with mood despite being on a lower dose of Abilify. No safety concerns identified by myself or reported by patient. No evidence of active hypomania/greg today. His movements appear to be a combination of TD and parkinsonism. His TD has improved since being on VMAT2 inhibitor. He continues to have hand tremors and akathisia. His neurologist has suggested Propranolol for treatment of his tremors. Patient was initially hesitant due to concerns of it possibly lowering BP. However, after discussion on movement disorders and treatment of each, patient is agreeable to try this. I informed him I will reach out to Jim Lees, who saw him last and recommended Propranolol, to see what dose she would recommend. Will call patient to update him on dosing of this medication once I receive a response. Patient verbalized understanding. Assessment/Plan Diagnoses and all orders for this visit: Bipolar 2 disorder ([facility]) - ARIPiprazole (Abilify) 10 MG tablet; Take 1 tablet (10 mg) by mouth Daily Tardive dyskinesia Treatment Plan/Recommendations: - Continue Ingrezza 40 mg for TD. - Start Propranolol for tremors and akathisia. Will await neurologist recommendations for dosing. - Continue Abilify 10 mg for bipolar disorder. - Keep counseling appointment on August 22 for additional mental health support and treatment. - RTC in 2-3 weeks. Discussed any medication changes and follow-up plan with patient. Encouraged patient to call office sooner if symptoms worsen or if any questions/concerns arise. Patient was seen Face to Face, Total time spent with patient was 20 minutes, which includes reviewing chart documents, previous notes/records, counseling and discussion with patient and/or coordination of care as described above. documented in this encounter [facility] 07-19-2024 History of Presen t illness Narrative Images from the original note were not included. Tahira Ivey is a 43 y.o. male with a history of bipolar affective disorder and tardive dyskinesia who presents for psychiatric medication follow-up. HPI: Patient was seen for initial intake on 06/22/24. At patient's last visit, his Austedo was increased to 42 mg. He reports taking increased dose every day. He states that he has noticed more problems with hand tremors, feet movements and prolonged eye blinking since the increase in dose. He continues to reports problems with sleep. He states he gets 5-6 hours but he wakes up frequently. He denies ever doing a sleep study. He states his mood is doing well on current Abilify dose. He has his first appointment with [facility] for counseling on August 22. SUBJECTIVE: PAST MEDICAL HISTORY: Past Medical History: Diagnosis Date Arthralgia Asymptomatic microscopic hematuria Bipolar disorder (CMS/HCC) Bursitis of shoulder, right Cyst of tendon sheath Dyspnea 09/08/2023 Family history of multiple sclerosis Hx of psychiatric hospitalization [facility] in his 20s Lumbar back pain Tardive dyskinesia Tremor ALLERGIES: Allergies Allergen Reactions Morphine Hives Severe itching Penicillins Rash SURGICAL HISTORY: Past Surgical History: Procedure Laterality Date CHOLECYSTECTOMY CYST REMOVAL Bilateral breast CYST REMOVAL back of neck SHOULDER ARTHROSCOPY Right 07/31/2023 DR JANE VASECTOMY WISDOM TOOTH EXTRACTION Right 11/2023 right upper FAMILY HISTORY: Family History Problem Relation Name Age of Onset Vision loss Mother Sandra valencia Multiple sclerosis Father Juve Ivey Vision loss Father Juve Ivey Diabetes Brother Ari Ivey COPD Other mothers side Rheum arthritis Other mothers side Fibromyalgia Other mothers side Arthritis Maternal Grandmother Brinda Preethi Hearing loss Maternal Grandmother Brinda Preethi SOCIAL HISTORY: Social History Tobacco Use Smoking status: Never Smokeless tobacco: Never Vaping Use Vaping status: Never Used Substance Use Topics Alcohol use: Not Currently Comment: caffiene- 3 sweet tea and occasion pop Drug use: Never Depression: Not at risk (07/19/2024) PHQ-2 PHQ-2 Score: 0 Patient Care Team: Montrell Serrano MD as PCP - General (Family Medicine) Georgia Davey NP as Referring Physician (Family Medicine) Kwame Fleming NP as Nurse Practitioner (Behavioral Health) Nadia Swift DO as Neurologist (Neurology) PSYCHIATRIC REVIEW OF SYMPTOMS AND MENTAL STATUS EXAM ROS: Patient denies malaise, night sweats, weight loss, weight gain, cough, SOB, palpitations, chest pain, insomnia, dysphagia, abdominal pain, N/V/D, pruritus, rash, headache, dizziness, seizures, tremors, headache. Appearance Appearance: Casual dress, normal grooming and hygiene Behavior Cooperative, conversant, engaged, and with good eye contact. Speech Normal, clear, regular rate, rhythm and volume Affect Blunted Mood euthymic Thought Process Organized and Clear Thought Content: Denies suicidal and homicidal ideation. Perception: Denies visual, auditory, and tactile hallucinations. Denies derealization and depersonalization. Orientation Appropriate to age Memory/Concentration Short term intact and long term care pharmacist intact Insight/Judgement Fair OBJECTIVE: Visit Vitals BP 112/82 (BP Location: Right arm, Patient Position: Sitting) Pulse 68 Wt 210 lb BMI 28.48 kg/m Smoking Status Never BSA 2.2 m Lab Results Component Value Date TSH 1.76 06/14/2024 Lab Results Component Value Date GLU NEGATIVE 06/14/2024 CALCIUM 9.1 06/14/2024 NA 140 06/14/2024 K 4.3 06/14/2024 CO2 26 06/14/2024 CL 106 06/14/2024 BUN 11 06/14/2024 CREATININE 1.12 06/14/2024 Lab Results Component Value Date WBC 8.5 06/14/2024 HGB 15.8 06/14/2024 HCT 46.9 06/14/2024 MCV 90.7 06/14/2024 PLT 359 06/14/2024 Lab Results Component Value Date CHOL 141 06/14/2024 Lab Results Component Value Date HDL 47 06/14/2024 Lab Results Component Value Date LDLCALC 75 06/14/2024 Lab Results Component Value Date TRIG 100 06/14/2024 ASSESSMENT AND PLAN: Impression: Patient denies any current problems with mood despite being on a lower dose of Abilify. No safety concerns identified by myself or reported by patient. No evidence of active hypomania/greg today. Patient wanting to continue to focus on treating tremors and movements related to SGA use. Educated patient on purpose of VMAT2 inhibitors and expectations in how much improvement he may or may not see with addition of this. He has had increased movements with use of Austedo so will switch to Ingrezza. Discussed how to switch over to new medication. Patient verbalized understanding. Assessment/Plan Diagnoses and all orders for this visit: Bipolar 2 disorder ([facility]) Tardive dyskinesia Treatment Plan/Recommendations: - Stop Austedo to 42 mg due to increased movements for 3 days. - Start Ingrezza 40 mg daily for TD on 07/23/24. - Continue Abilify 10 mg for bipolar disorder. - Keep counseling appointment on August 22 for additional mental health support and treatment. - RTC in 2-3 weeks. Discussed any medication changes and follow-up plan with patient. Encouraged patient to call office sooner if symptoms worsen or if any questions/concerns arise. Patient was seen Face to Face, Total time spent with patient was 20 minutes, which includes reviewing chart documents, previous notes/records, counseling and discussion with patient and/or coordination of care as described above. documented in this encounter [facility] 06-29-2024 History of Presen t illness Narrative General Surgery H&P Tahira Ivey 1980 Tahira Ivey is a 43 y.o. male presents for Colonoscopy. Denies having a colonoscopy before. Pt denies abdominal pain. Pt admits to rectal bleeding. Pt denies changes in bowel movements. Pt denies a family history of colon cancer that they know of. Pt states that he has been having rectal bleeding for at least 4 weeks. He states that it was spotting in the beginning, but now it is more persistent. He states he might have internal hemorrhoids. Never had this before. No itching, just some pressure at times when having a BM. Denies hx of unplanned weight loss. Denies fevers, chills, or sweats. Denies nausea or vomiting. Discussed diagnostic colonoscopy and need for possible internal hemorrhoid banding with all associated risks. SUBJECTIVE: MEDICATIONS: ALLERGIES Current Outpatient Medications Medication Instructions ARIPiprazole (ABILIFY) 10 mg, Oral, Daily Austedo XR 42 mg, Oral, Daily bisacodyl (DULCOLAX) 5 mg, Oral, Once, Do not crush, chew, or split. Take as detailed on clinic hand out for colonoscopy prep clotrimazole-betamethasone (Lotrisone) cream Topical, 2 times daily polyethylene glycol (PEG) 3350 (GLYCOLAX) 238 g, Oral, Once, Take as detailed from clinic hand out for colonoscopy prep Allergies Allergen Reactions Morphine Hives Severe itching Penicillins Rash PAST MEDICAL HISTORY: SOCIAL HISTORY SURGICAL HISTORY: Past Medical History: Diagnosis Date Arthralgia Asymptomatic microscopic hematuria Bipolar disorder (CMS/HCC) Bursitis of shoulder, right Cyst of tendon sheath Dyspnea 09/08/2023 Family history of multiple sclerosis Hx of psychiatric hospitalization [facility] in his 20s Lumbar back pain Tardive dyskinesia Tremor Social History Tobacco Use Smoking status: Never Smokeless tobacco: Never Vaping Use Vaping status: Never Used Substance Use Topics Alcohol use: Not Currently Comment: caffiene- 3 sweet tea and occasion pop Drug use: Never Past Surgical History: Procedure Laterality Date CHOLECYSTECTOMY CYST REMOVAL Bilateral breast CYST REMOVAL back of neck SHOULDER ARTHROSCOPY Right 07/31/2023 DR JANE VASECTOMY WISDOM TOOTH EXTRACTION Right 11/2023 right upper Family History Problem Relation Name Age of Onset Vision loss Mother Sandra valencia Multiple sclerosis Father Juve Ivey Vision loss Father Juve Ivey Diabetes Brother Ari Ivey COPD Other mothers side Rheum arthritis Other mothers side Fibromyalgia Other mothers side Arthritis Maternal Grandmother Brinda Preethi Hearing loss Maternal Grandmother Brinda Preethi Allergies Allergen Reactions Morphine Hives Severe itching Penicillins Rash Past Surgical History: Procedure Laterality Date CHOLECYSTECTOMY CYST REMOVAL Bilateral breast CYST REMOVAL back of neck SHOULDER ARTHROSCOPY Right 07/31/2023 DR JANE VASECTOMY WISDOM TOOTH EXTRACTION Right 11/2023 right upper Tobacco Use: Low Risk (06/29/2024) Patient History Smoking Tobacco Use: Never Smokeless Tobacco Use: Never Passive Exposure: Not on file Alcohol Use: Not At Risk (06/22/2024) AUDIT-C Frequency of Alcohol Consumption: Monthly or less Average Number of Drinks: 1 or 2 Frequency of Binge Drinking: Never Depression: Not at risk (12/10/2023) PHQ-2 PHQ-2 Score: 0 Physical Activity: Insufficiently Active (09/07/2023) Exercise Vital Sign Days of Exercise per Week: 2 days Minutes of Exercise per Session: 20 min REVIEW OF SYMPTOMS: Review of Systems All other systems reviewed and are negative. 10 systems were reviewed. Positives noted above. Remainder are negative per CMS guidelines. OBJECTIVE: Visit Vitals BP 122/68 Pulse 78 Resp 12 Ht 6' Wt 210 lb 6.4 oz SpO2 99% BMI 28.54 kg/m Smoking Status Never BSA 2.2 m Physical Exam Vitals reviewed. General: AAOx3, NAD Head: atraumatic normocephalic Neck: trachea midline. No masses or lymphadenopathy Heart: Regular rate and rhythm Lungs: equal chest rise and fall, non labored breathing Abdomen: soft, nontender, and non distended Ext: motor 5/5 all extremities with no gross deformities Psych: alert and oriented, behavior appropriate ASSESSMENT AND PLAN: Assessment/Plan Diagnoses and all orders for this visit: Rectal bleeding - bisacodyl (Dulcolax) 5 MG EC tablet; Take 1 tablet (5 mg) by mouth 1 time for 1 dose Do not crush, chew, or split. Take as detailed on clinic hand out for colonoscopy prep - polyethylene glycol, PEG, 3350 (Glycolax) 17 GM/SCOOP powder; Take 238 g by mouth 1 (one) time for 1 dose Take as detailed from clinic hand out for colonoscopy prep Plan: Patient is increased risk for colon cancer. Colonoscopy with possible internal hemorrhoid banding can be scheduled electively. Patient informed of the risks of procedure which include but not limited to bleeding, perforation, and risks of anesthesia. Patient understood risks and signed informed consent for the procedure under monitored anesthesia care. Handout for bowel prep provided in clinic. Patient was informed of the need for a ride home from the hospital and the need for someone to be with them for the following 24 hrs post procedure. Hemorrhoid instructions: Avoid sitting on the toilet for long periods of time Avoid straining during bowel movements Milk of magnesia 30 ml daily until first bowel movement Take stool softeners (colace) and Miralax as discussed to help with comfort with bowel movements Siiting in warm tub of water/Sitz bath 2-3 times a day: after sitz bath, apply witch yusuf and large cotton ball to perianal area for 5 minutes and then apply topical Preparation H thinly to the area High fiber diet, ensure adequate water intake daily Topical Dibucaine ointment twice daily as needed for discomfort/pain Thank you, Kelly Brooks DO documented in this encounter [facility] 06-22-2024 History of Presen t illness Narrative Images from the original note were not included. Tahira Ivey is a 43 y.o. male with a history of bipolar affective disorder who presents as a new patient for psychiatric evaluation and medication management. HPI: Reason for visit: Tahira Ivey is here today to discuss possible medication adjustments for his hand tremors. He reports problems with movements in his mouth and face that has been going on for many years. He cannot recall when he was put on Austedo for these movements but states that he has been on the same dosage (36 mg) for the entire year of 2023. He reports improvement in facial movements since being on Austedo but has not seen improvement in his hand tremors. He feels tremors began 5-6 months ago. He states movements are impacting his ability to hold a flashlight or screwdriver at work, as well as his ability to hold a utensil properly to eat. He states tremors are constant but worsen with stress or if he gets angry. He states mood has been stable for quite some time on the Abilify and remains okay since his dose has been titrated down. He feels that he has issues with being tearful and crying most days. He has seen Neurologist recently for his tremors. He had brain MRI that was unremarkable. Last note reports suggestions for use of Propranolol to help with tremors. Patient states that he wanted to come to today's visit before considering this medication as he has fears of it causing a lower BP. He states he is transferring care to [facility] because his previous psychiatric provider left and he wants to keep all of his providers in one organization. Developmental History: Patient states he was raised by biological parents up until he was 3-4 years old when they . Mother did remarry his step father. He spent most of his time with them and then would go to his biological father's house on the weekends. He reports a good childhood. Past Psychiatric History: Previous diagnoses: Bipolar disorder Previous psychiatric treatment: States that he has never done therapy. Reports seeing Deana Zaman at [facility] prior to her leaving. Reports doing his recent visits mostly by telephone as they were making dosing adjustments. States he last saw her about 4 weeks ago. Previous medications: Patient states he was on other medications while hospitalized and to help with sleep, but cannot recall any of the medications. He states that one of the meds that he was on in his 20s caused the facial movements and hand posturing but he doesn't know the name of it. Current medications: Abilify 10 mg daily - Reports being on this medication since he was in his 20s. States he has been weaned down from 30 mg over the past 4-5 months due to concerns for his movement disorder. Austedo XR 36 mg daily - Reports improvement in facial movements and hand gestures since starting medication. Previous psychiatric hospitalizations: States he was hospitalized in 20s at [facility] and that is when he received his bipolar diagnosis. Previous suicide attempts or self harm: Reports 1 suicide attempt in his early 20s. History of trauma: He reports good friend when he was a teenager and he saw them performing CPR on him. His step father when he was 20. Grandfather who he was really close to 4 years ago and grandmother earlier this year. Education: Graduated from [employer]. Reports being bullied his entire life. States he also went to [employer] and did some college classes after high school. Legal history: Reports he got charged for aggravated trespassing in his 20s Family history of mental health conditions: Unknown. PHQ-9 score: 5 SAMRA-7 score: 6 Substance Abuse History: Recreational drugs: Denies Use of alcohol: Denies Use of caffeine: Sweet tea and occasional pop Tobacco or vaping use: Denies Patient Care Team: Montrell Serrano MD as PCP - General (Family Medicine) Georgia Davey NP as Nurse Practitioner (Family Medicine) Georgia Davey NP as Referring Physician (Family Medicine) SUBJECTIVE: PAST MEDICAL HISTORY: Past Medical History: Diagnosis Date Arthralgia Asymptomatic microscopic hematuria Bipolar 1 disorder ([facility]) 09/08/2023 Bursitis of shoulder, right Cyst of tendon sheath Dyspnea 09/08/2023 Family history of multiple sclerosis Hx of psychiatric hospitalization [facility] in his 20s Lumbar back pain SARS-associated coronavirus exposure Tardive dyskinesia Tremor Patient denies any history of heart problems, head trauma, seizures, stroke/TIA, infectious disorders (e.g., meningitis), lung disorders, tics/tourette s, eating disorders. MEDICATIONS: Current Outpatient Medications Medication Instructions ARIPiprazole (ABILIFY) 10 mg, Daily Austedo XR 12 mg, Daily Austedo XR 24 mg, Daily clotrimazole-betamethasone (Lotrisone) cream Topical, 2 times daily ALLERGIES: Allergies Allergen Reactions Morphine Hives Severe itching Penicillins Rash SURGICAL HISTORY: Past Surgical History: Procedure Laterality Date CHOLECYSTECTOMY CYST REMOVAL Bilateral breast CYST REMOVAL back of neck SHOULDER ARTHROSCOPY Right 07/31/2023 DR JANE VASECTOMY WISDOM TOOTH EXTRACTION Right 11/2023 right upper FAMILY HISTORY: Family History Problem Relation Name Age of Onset Multiple sclerosis Father Diabetes Brother COPD Other mothers side Rheum arthritis Other mothers side Fibromyalgia Other mothers side SOCIAL HISTORY: Social History Tobacco Use Smoking status: Never Smokeless tobacco: Never Vaping Use Vaping status: Never Used Substance Use Topics Alcohol use: Not Currently Comment: caffiene- 3 sweet tea and occasion pop Drug use: Never Depression: Not at risk (12/10/2023) PHQ-2 PHQ-2 Score: 0 Relationship/marital status: Reports he has been with partner for 10 years and will be to her for 7 years this upcoming December. 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 Reports marriage is good. Children: None Living situation: Lives with . Reports his [id number] and niece temporarily moved in with them recently Occupation: Has been working at [employer] for the past 11-12 years. 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 PSYCHIATRIC REVIEW OF SYMPTOMS AND MENTAL STATUS EXAM Psychiatric Review Of Systems: Sleep: Patient admits to problems with falling asleep and staying asleep. Patient states he will get 5-6 hours of sleep a night but it is not consecutive hours. Appetite changes: Denies Weight changes: Reports intentional weight loss over the past year. Energy: Good Interest/pleasure/anhedonia: Admits Concentration: Denies any problems Agitation/Irritability: Admits to history of anger and aggression. He states that he used to fight, yell, and threaten others frequently when he was in his 20s. He states he hasn't had any recent problems with this. Impulsivity: Patient admits to history of impulse buying. Grandiosity: Patient denies any feelings of inflated self esteem or self image. Flight of ideas: Patient admits to problems in the past. Denies anything currently. Anxiety/panic: Reports some anxiety. States he has had 1 panic attack in his lifetime. Self-injurious behavior/risky behavior: Denies Suicidal ideation: Denies Suicidal plan: Denies Any current drug use?: Denies Any current alcohol use?: Denies Appearance Appearance: Casual dress, normal grooming and hygiene Attitude Attitude: Cooperative, conversant, engaged, and with good eye contact. Behavior Cooperative, conversant, engaged, and with good eye contact. Speech Normal, clear, regular rate, rhythm and volume Affect Sad/tearful - Becomes tearful when talking about the loss of his grandfather. Mood euthymic Thought Process Organized and Clear Thought Content: Denies suicidal and homicidal ideation. Perception: Denies visual, auditory, and tactile hallucinations. Denies derealization and depersonalization. Orientation Appropriate to age Memory/Concentration Short term intact and chcf intact Insight/Judgement Good OBJECTIVE: Visit Vitals BP 116/82 (BP Location: Right arm, Patient Position: Sitting) Pulse 73 Wt 210 lb BMI 28.48 kg/m Smoking Status Never BSA 2.2 m AIMS SCORE: positive Lab results: Lab Results Component Value Date TSH 1.76 06/14/2024 Lab Results Component Value Date GLU NEGATIVE 06/14/2024 CALCIUM 9.1 06/14/2024 NA 140 06/14/2024 K 4.3 06/14/2024 CO2 26 06/14/2024 CL 106 06/14/2024 BUN 11 06/14/2024 CREATININE 1.12 06/14/2024 Lab Results Component Value Date WBC 8.5 06/14/2024 HGB 15.8 06/14/2024 HCT 46.9 06/14/2024 MCV 90.7 06/14/2024 PLT 359 06/14/2024 Lab Results Component Value Date CHOL 141 06/14/2024 Lab Results Component Value Date HDL 47 06/14/2024 Lab Results Component Value Date LDLCALC 75 06/14/2024 Lab Results Component Value Date TRIG 100 06/14/2024 ASSESSMENT AND PLAN: Impression: Patient denies any current problems with mood despite being on a lower dose of Abilify. No safety concerns identified by myself or reported by patient. No evidence of active hypomania/greg today. Patient reports wanting to focus on treating tremors and see if any improvement can be made. Educated patient on SGAs and possible movement disorders that may occur with their use. Also discussed purpose of VMAT2 inhibitors like the Austedo that he is on, as well as expectations of drug and how it may not completely get rid of all of his symptoms. He has seen benefit with mouth movements and hand posturing since being on medication. He continues to have some movement in his BLE and BUE during conversation and with AIMS test. Patient agreeable to increasing Austedo to 42 mg for these movements. Can consider mood stabilizer at future visits and then possibly weaning of Abilify. Informed patient that these future decisions are all based on risks and benefits. Discussed counseling as a part of his treatment plan to help with his previous trauma and grief, as well as learning coping skills to help with anger. Patient agreeable to this. MARISEL signed by patient to review records from previous psych provider. 1) Bipolar disorder - Patient has both current/past hypomanic episode and current/past major depressive episode. Patient's hypomanic episode presents as an abnormally and persistently elevated, expansive and irritable mood with increased energy lasting at least 4 consecutive days and present most of the day, nearly every day. Patient has also had 3 or more of the following: inflated self esteem/grandiosity; decreased need for sleep; more talkative than usual/pressure to keep talking; flight of ideas; distractibility; psychomotor agitation; excessive involvement in activities with high potential for painful consequences. Assessment/Plan Diagnoses and all orders for this visit: Bipolar 2 disorder ([facility]) - ARIPiprazole (Abilify) 10 MG tablet; Take 1 tablet (10 mg) by mouth Daily Tardive dyskinesia - Ambulatory referral to Psychiatry - Deutetrabenazine ER (Austedo XR) 42 MG tablet sustained-release 24 hour; Take 42 mg by mouth Daily Treatment Plan/Recommendations: - Increase Austedo to 42 mg for TD - Continue Abilify 10 mg for bipolar disorder - Encouraged counseling for additional mental health support and treatment. Reviewed the risks, benefits, and potential side effects from the medications. The patient agrees the benefits outweigh the risks and agrees to treat their symptoms. Discussed treatment plan, the patient was allowed time to ask questions, and the patient agreed with the plan moving forward. Instructed patient to call office with any complications or potential side effects. Patient instructed to present to the local ER or call Suicide Hotline (929) for any psychosis, suicidal or homicidal ideation, or with any risk of harm to self or others. Recommend to follow-up in 3 weeks to re-evaluate symptoms. Discussed follow-up plan with patient, and encouraged patient to call office sooner if symptoms worsen or if any questions/concerns arise. Patient was seen Face to Face, Total time spent with patient was 65 minutes, which includes reviewing chart documents, previous notes/records, counseling and discussion with patient and/or coordination of care as described above. documented in this encounter [facility] 06-13-2024 History of Presen t illness Narrative Associated Problem(s): Rash No improvement in rash with steroid (Rx strength) Will trial lotrisone cream If not better contact office Images from the original note were not included. Tahira Ivey is a 43 y.o. male presents with chief complaint of No chief complaint on file. HPI: Here for a wellness examination: Diet: balanced, sweet tea, not a lot of pop Activity:- a lot of walking while at work, no other organized exercise program Sleep: 5 hours per night, trouble falling and staying asleep: has trialed many different meds over the years Mental Health: no SI/HI/Hallucinations, still with tremors, is working with Psych on this Concerns: rash bilat feet, itching, no pain, no drainage, trialed steroid cream no help with getting rid of rash, but has helped with itching SUBJECTIVE: MEDICATIONS: Current Outpatient Medications Medication Instructions ARIPiprazole (ABILIFY) 10 mg, Daily Austedo XR 12 mg, Daily Austedo XR 24 mg, Daily clotrimazole-betamethasone (Lotrisone) cream Topical, 2 times daily ALLERGIES: Allergies Allergen Reactions Morphine Hives Severe [...] volume, difficulty urinating, dysuria and hematuria. Skin: Positive for rash. Negative for color change. Neurological: Positive for tremors. Negative for dizziness and seizures. Psychiatric/Behavioral: Negative for agitation, decreased concentration, hallucinations, self-injury and suicidal ideas. The patient is nervous/anxious. Hematological: Negative for adenopathy. Does not bruise/bleed easily. Endocrine: Negative for cold intolerance, heat intolerance, polydipsia and polyuria. Allergic/Immunologic: Negative for environmental allergies and food allergies. PAST MEDICAL HISTORY Past Medical History: Diagnosis Date Arthralgia Asymptomatic microscopic hematuria Bipolar 1 disorder (CMS/HCC) 09/08/2023 Bursitis of shoulder, right Cyst of tendon sheath Dyspnea 09/08/2023 Family history of multiple sclerosis Lumbar back pain SARS-associated coronavirus exposure Tremor Past Surgical History: Procedure Laterality Date CHOLECYSTECTOMY [...] other family member. OBJECTIVE: Visit Vitals BP 110/74 (BP Location: Left arm, Patient Position: Sitting, BP Cuff Size: Adult long) Pulse 78 Temp 97.8 F (Temporal) Resp 20 Ht 6' Wt 208 lb SpO2 96% BMI 28.21 kg/m Smoking Status Never BSA 2.19 m Physical Exam Vitals and nursing note reviewed. Constitutional: Appearance: Normal appearance. HENT: Head: Normocephalic. Right Ear: External ear normal. Left Ear: External ear normal. Nose: Nose normal. Mouth/Throat: Mouth: Mucous membranes are moist. Pharynx: Oropharynx is clear. Eyes: Extraocular Movements: Extraocular movements intact. Conjunctiva/sclera: Conjunctivae normal. Neck: Vascular: No carotid bruit. Cardiovascular: Rate and Rhythm: Normal rate and regular rhythm. Pulses: Normal pulses. Heart sounds: Normal heart sounds. Pulmonary: Effort: Pulmonary effort is normal. Breath sounds: Normal breath sounds. Abdominal: General: Bowel sounds are normal. Palpations: Abdomen is soft. Musculoskeletal: Cervical back: Neck supple. Right lower leg: No edema. Left lower leg: No edema. Skin: General: Skin is warm and dry. Capillary Refill: Capillary refill takes 2 to 3 seconds. Findings: Rash present. Comments: Bilat dorsal aspect of foot/anterior ankle region: mild erythema, patches, no scales or ulcerations Neurological: General: No focal deficit present. Mental Status: He is alert. Comments: Tremor noted Psychiatric: Mood and Affect: Mood normal. Behavior: Behavior normal. Thought Content: Thought content normal. Judgment: Judgment normal. ASSESSMENT AND PLAN: Follow up in about 6 months (around 12/11/2024) for Recheck. Problem List Items Addressed This Visit Bipolar 1 disorder (CMS/HCC) Will have pt continue to follow with Psych provider for management of symptoms Overweight (BMI 25.0-29.9) Recommend exercise Tremor, unspecified Had evaluation with neurology , also had MRI I have reviewed the MRI brain w and w/o: normal Reviewed Neurology notes as well Encounter for wellness examination in adult - Primary Reviewed Ht/Wt/BMI Recommend eye exam yearly Recommend dental exams twice a year Balance work/leisure activities Exercises is recommended most days of the week (appropriate as chronic conditions allow) Follow up yearly and prn Relevant Orders CBC and differential Comprehensive metabolic panel TSH Lipid panel Urinalysis with reflex microscopic (clean catch) Rash No improvement in rash with steroid (Rx strength) Will trial lotrisone cream If not better contact office Relevant Medications clotrimazole-betamethasone (Lotrisone) cream Associated Problem(s): Overweight (BMI 25.0-29.9) Recommend exercise Associated Problem(s): Encounter for wellness examination in adult Reviewed Ht/Wt/BMI Recommend eye exam yearly Recommend dental exams twice a year Balance work/leisure activities Exercises is recommended most days of the week (appropriate as chronic conditions allow) Follow up yearly and prn Associated Problem(s): Bipolar 1 disorder (CMS/HCC) Will have pt continue to follow with Psych provider for management of symptoms Associated Problem(s): Tremor, unspecified Had evaluation with neurology , also had MRI I have reviewed the MRI brain w and w/o: normal Reviewed Neurology notes as well documented in this encounter [facility] 06-13-2024 Instructions Georgia Davey NP - 06/13/2024 9:00 AM EST Trial lotrisone cream twice a day for 4 weeks, if not better call office documented in this encounter [facility] 06-02-2024 History of Presen t illness Narrative Images from the original note were not included. Chief Complaint Patient presents with Tardive Dyskinesia Tremors Subjective Tahira Ivey, 43 y.o., male Patient is here with for follow up to hand tremor and history of tardive dyskinesia. Admits MRI of the brain since last seen. He states that he has been following with psychiatry but states he would like to follow more locally. He has been traveling from [place] to [place]. He states that his Abilify was reduced as an attempt to reduce his symptoms. He states this did help, mildly. He continues on Austedo for TD. He denies any change to symptoms since last seen. Patient admits the left hand tremor is worse then the right. He is left handed. He notes this increases when he is agitated/angry. He denies further concern today. Review of Systems Constitutional: Negative for appetite [...] Arthralgia Asymptomatic microscopic hematuria Bipolar 1 disorder ([facility]) 09/08/2023 Bursitis of shoulder, right Cyst of tendon sheath Dyspnea 09/08/2023 Family history of multiple sclerosis Lumbar back pain SARS-associated coronavirus exposure Tremor Past Surgical History: Procedure Laterality Date CHOLECYSTECTOMY [...] or less. Allergies: Morphine and Penicillins Vitals: 06/02/24 0849 BP: 142/83 Pulse: 96 Body mass index is 28.89 kg/m . weight: 213 lb Neurologic exam: Mental status: Well nourished, well developed and in no acute distress. Grossly oriented to person, place and time. Recent and [...] symmetric facial movement. CN VIII: Hearing is intact. CN IX and X: Palate elevates symmetrically. CN XI: Shoulder shrug is normal bilaterally. CN XII: Tongue is midline without atrophy or fasciculation. Motor: RUE Strength deltoid, , biceps , triceps , wrist extensors , wrist flexor , edge stainer strength 5/5. LUE Strength deltoid , biceps , triceps , wrist extensors , wrist flexor , edge stainer strength 5/5. RLE Strength illopsoas, quadriceps, tibialis anterior, and gastrocnemius strength 5/5. LLE Strength illopsoas, quadriceps, tibialis anterior, and gastrocnemius strength 5/5. Normal tone x4 extremities. Bulk is normal. Mild postural tremor of the bilateral upper extremities L>R. No resting tremor. No rigidity. Sensory: Sensation is intact to light touch throughout distal extremities. Reflexes: RUE biceps reflex 2+ brachioradialis reflex 2+ . LUE biceps reflex 2+ brachioradialis reflex 2+ . RLE knee reflex 2+ . LLE knee reflex 2+ . Lovett's sign negative. Coordination: Finger to nose testing is normal bilaterally. Rapid alternating hand movements are normal Gait: Normal Review and summary of old records: MRI of the brain with and without contrast at [facility] on 05/18/24: Unremarkable brain MRI performed with and without contrast. Assessment/Plan Diagnoses and all orders for this visit: Tremor, unspecified The patient has a postural tremor of the bilateral upper extremities. The patient admits to progressive worsening over the last 6 months. This was originally thought to be due to the patient's Abilify and so the dose was decreased from 30 mg to 10 mg. However, this did not seem to fully resolve the problem. The patient is now on deutetrabenazine 36 mg daily. The patient does admit that this has helped though not resolved his symptoms. MRI of the brain was unremarkable for cause and he states that his thyroid has been checked by his PCP and has been normal. PLAN: - Referral to psychiatry at [facility] in [place] per patient request - We have discussed possible initiation of propranolol to further help with the patients tremor. Though he would like to first try to further maximize psychiatric management before adding additional medication and I believe this is reasonable. - Consideration could be given to alternative agents for bipolar/ mood stabilization such as lamotrigine if the symptoms persist as the Abilify may be overall causative. Tardive dyskinesia See above. Ataxia It is my impression that the patient demonstrated ataxia with finger to nose testing at his previous visit. MRI of the brain was unremarkable and this is not re demonstrated on clinical exam today. Scheduled follow up is deferred today per patient request. The patient would like to call to schedule follow up should he decide to pursue further intervention or sooner if symptoms worsen, fail to improve, or should a new neurological concern arise. Pt has been fully educated on their diagnosis, treatment options, follow up plan, and return instructions documented in this encounter [facility] 05-05-2024 History of Presen t illness Narrative Images from the original note were not included. Chief Complaint Patient presents with Tremors Subjective Tahira Ivey, 43 y.o., male Patient is here with tremors. 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 LUE Strength deltoid , biceps , triceps , wrist extensors , wrist flexor , edge stainer strength 5/5. RLE Strength illopsoas, quadriceps, tibialis [...] my impression that the patient has abnormal [id number] testing indicating ataxia. The patient is 43 [...] and return instructions documented in this encounter [facility] 04-19-2024 History of Presen t illness Narrative [...] from the original note were not included. Tahira Ivey is a 43 y.o. 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 Good compliance with use of sling Functional Limitations: 28/80 points, 65% impairment Mcfp Goals: AA/AROM R shoulder to 160 flexion [...] back to the number below. 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 Good compliance with use of sling Functional Limitations: 28/80 points, 65% impairment Law Office Assistant Goals: AA/AROM R shoulder to 160 flexion [...] back to the number below. Physician Signature: Date: documented in this encounter [facility] Diagnosis Internal derangement of right shoulder- Primary S/P arthroscopy of right shoulder [facility]* Diagnosis Internal derangement of right shoulder- Primary S/P arthroscopy of right shoulder [facility]* Diagnosis Internal derangement of right shoulder- Primary S/P arthroscopy of right shoulder [facility]* Diagnosis Tremor, unspecified- Primary Overweight (BMI 25.0-29.9) Overweight [facility]* Diagnosis Dyspnea, unspecified type- Primary Wheezing Bipolar 1 disorder ([facility]/HCC) Overweight (BMI 25.0-29.9) Overweight Dyspnea, unspecified type- Primary Overweight (BMI 25.0-29.9) Overweight Bipolar 1 disorder ([facility]) Dyspnea, unspecified type- Primary Overweight (BMI 25.0-29.9) Overweight Tremor, unspecified- Primary Overweight (BMI 25.0-29.9) Overweight Ataxia- Primary Lack of coordination Tremor, unspecified Tardive dyskinesia Subacute dyskinesia due to drugs [facility]* Diagnosis Dyspnea, unspecified type- Primary Wheezing Bipolar 1 disorder ([facility]/HCC) Overweight (BMI 25.0-29.9) Overweight Dyspnea, unspecified type- Primary Overweight (BMI 25.0-29.9) Overweight Bipolar 1 disorder ([facility]/HCC) Dyspnea, unspecified type- Primary Overweight (BMI 25.0-29.9) Overweight Tremor, unspecified- Primary Overweight (BMI 25.0-29.9) Overweight Tardive dyskinesia- Primary Subacute dyskinesia due to drugs Tremor, unspecified [facility]* Diagnosis Dyspnea, unspecified type- Primary Wheezing Bipolar 1 disorder ([facility]) Overweight (BMI 25.0-29.9) Overweight Dyspnea, unspecified type- Primary Overweight (BMI 25.0-29.9) Overweight Bipolar 1 disorder ([facility]) Dyspnea, unspecified type- Primary Overweight (BMI 25.0-29.9) Overweight Tremor, unspecified- Primary Overweight (BMI 25.0-29.9) Overweight Encounter for wellness examination in adult- Primary Tremor, unspecified Overweight (BMI 25.0-29.9) Overweight Bipolar 1 disorder ([facility]) Rash Rash and other nonspecific skin eruption documented [facility]* Diagnosis Dyspnea, unspecified type- Primary Wheezing Bipolar 1 disorder ([facility]/HCC) Overweight (BMI 25.0-29.9) Overweight Dyspnea, unspecified type- Primary Overweight (BMI 25.0-29.9) Overweight Bipolar 1 disorder ([facility]/HCC) Dyspnea, unspecified type- Primary Overweight (BMI 25.0-29.9) Overweight Tremor, unspecified- Primary Overweight (BMI 25.0-29.9) Overweight Encounter for wellness examination in adult- Primary Tremor, unspecified Overweight (BMI 25.0-29.9) Overweight Bipolar 1 disorder ([facility]) Rash Rash and other nonspecific skin eruption Rectal bleeding Hemorrhage of rectum and anus Bipolar 2 disorder ([facility]) Other bipolar disorders Tardive dyskinesia Subacute dyskinesia due to drugs documented [facility]* Diagnosis Dyspnea, unspecified type- Primary Wheezing Bipolar 1 disorder ([facility]/HCC) Overweight (BMI 25.0-29.9) Overweight Dyspnea, unspecified type- Primary Overweight (BMI 25.0-29.9) Overweight Bipolar 1 disorder ([facility]) Dyspnea, unspecified type- Primary Overweight (BMI 25.0-29.9) Overweight Tremor, unspecified- Primary Overweight (BMI 25.0-29.9) Overweight Encounter for wellness examination in adult- Primary Tremor, unspecified Overweight (BMI 25.0-29.9) Overweight Bipolar 1 disorder ([facility]) Rash Rash and other nonspecific skin eruption Rectal bleeding Hemorrhage of rectum and anus Rectal bleeding- Primary Hemorrhage of rectum and anus documented [facility]* Diagnosis Dyspnea, unspecified type- Primary Wheezing Bipolar 1 disorder ([facility]) Overweight (BMI 25.0-29.9) Overweight Dyspnea, unspecified type- Primary Overweight (BMI 25.0-29.9) Overweight Bipolar 1 disorder ([facility]) Dyspnea, unspecified type- Primary Overweight (BMI 25.0-29.9) Overweight Tremor, unspecified- Primary Overweight (BMI 25.0-29.9) Overweight Encounter for wellness examination in adult- Primary Tremor, unspecified Overweight (BMI 25.0-29.9) Overweight Bipolar 1 disorder ([facility]) Rash Rash and other nonspecific skin eruption Rectal bleeding Hemorrhage of rectum and anus Bipolar 2 disorder ([facility]) Other bipolar disorders Tardive dyskinesia Subacute dyskinesia due to drugs documented [facility]* Diagnosis Dyspnea, unspecified type- Primary Wheezing Bipolar 1 disorder ([facility]/HCC) Overweight (BMI 25.0-29.9) Overweight Dyspnea, unspecified type- Primary Overweight (BMI 25.0-29.9) Overweight Bipolar 1 disorder ([facility]/HCC) Dyspnea, unspecified type- Primary Overweight (BMI 25.0-29.9) Overweight Tremor, unspecified- Primary Overweight (BMI 25.0-29.9) Overweight Encounter for wellness examination in adult- Primary Tremor, unspecified Overweight (BMI 25.0-29.9) Overweight Bipolar 1 disorder ([facility]) Rash Rash and other nonspecific skin eruption Rectal bleeding Hemorrhage of rectum and anus Bipolar 2 disorder ([facility]) Other bipolar disorders Tardive dyskinesia Subacute dyskinesia due to drugs [facility]* Diagnosis Dyspnea, unspecified type- Primary Wheezing Bipolar 1 disorder ([facility] [facility]) Overweight (BMI 25.0-29.9) Overweight Dyspnea, unspecified type- Primary Overweight (BMI 25.0-29.9) Overweight Bipolar 1 disorder ([facility]) Dyspnea, unspecified type- Primary Overweight (BMI 25.0-29.9) Overweight Tremor, unspecified- Primary Overweight (BMI 25.0-29.9) Overweight Encounter for wellness examination in adult- Primary Tremor, unspecified Overweight (BMI 25.0-29.9) Overweight Bipolar 1 disorder ([facility]) Rash Rash and other nonspecific skin eruption Rectal bleeding Hemorrhage of rectum and anus Bipolar 2 disorder ([facility]) Other bipolar disorders documented in this encounter [facility]* Diagnosis Dyspnea, unspecified type- Primary Wheezing Bipolar 1 disorder ([facility]) Overweight (BMI 25.0-29.9) Overweight Dyspnea, unspecified type- Primary Overweight (BMI 25.0-29.9) Overweight Bipolar 1 disorder ([facility]) Dyspnea, unspecified type- Primary Overweight (BMI 25.0-29.9) Overweight Tremor, unspecified- Primary Overweight (BMI 25.0-29.9) Overweight Encounter for wellness examination in adult- Primary Tremor, unspecified Overweight (BMI 25.0-29.9) Overweight Bipolar 1 disorder ([facility]) Rash Rash and other nonspecific skin eruption Rectal bleeding Hemorrhage of rectum and anus Bipolar 2 disorder ([facility]) Other bipolar disorders Tardive dyskinesia Subacute dyskinesia due to drugs Tremor Abnormal involuntary movements documented in this encounter [facility]* Diagnosis Dyspnea, unspecified type- Primary Wheezing Bipolar 1 disorder ([facility]) Overweight (BMI 25.0-29.9) Overweight Dyspnea, unspecified type- Primary Overweight (BMI 25.0-29.9) Overweight Bipolar 1 disorder ([facility]) Dyspnea, unspecified type- Primary Overweight (BMI 25.0-29.9) Overweight Tremor, unspecified- Primary Overweight (BMI 25.0-29.9) Overweight Encounter for wellness examination in adult- Primary Tremor, unspecified Overweight (BMI 25.0-29.9) Overweight Bipolar 1 disorder ([facility]) Rash Rash and other nonspecific skin eruption Rectal bleeding Hemorrhage of rectum and anus Tardive dyskinesia Subacute dyskinesia due to drugs Bipolar 2 disorder ([facility]) Other bipolar disorders SAMRA (generalized anxiety disorder) ([facility] [place]) Generalized anxiety disorder documented in this encounter [facility]* Diagnosis Dyspnea, unspecified type- Primary Wheezing Bipolar 1 disorder ([facility]) Overweight (BMI 25.0-29.9) Overweight Dyspnea, unspecified type- Primary Overweight (BMI 25.0-29.9) Overweight Bipolar 1 disorder ([facility]) Dyspnea, unspecified type- Primary Overweight (BMI 25.0-29.9) Overweight Tremor, unspecified- Primary Overweight (BMI 25.0-29.9) Overweight Encounter for wellness examination in adult- Primary Tremor, unspecified Overweight (BMI 25.0-29.9) Overweight Bipolar 1 disorder ([facility]) Rash Rash and other nonspecific skin eruption Rectal bleeding Hemorrhage of rectum and anus Bipolar 2 disorder ([facility]) Other bipolar disorders SAMRA (generalized anxiety disorder) ([facility] [place]) Generalized anxiety disorder Tardive dyskinesia Subacute dyskinesia due to drugs Tremor Abnormal involuntary movements documented in this encounter [facility]* Diagnosis Tremor, unspecified- Primary Overweight (BMI 25.0-29.9) Overweight Encounter for wellness examination in adult- Primary Tremor, unspecified Overweight (BMI 25.0-29.9) Overweight Bipolar 1 disorder (CMS/HCC) Rash Rash and other nonspecific skin eruption Rectal bleeding Hemorrhage of rectum and anus Bipolar 2 disorder (CMS/HCC) Other bipolar disorders SAMRA (generalized anxiety disorder) ([facility]) Generalized anxiety disorder Tremor Abnormal involuntary movements Tardive dyskinesia Subacute dyskinesia due to drugs Current episode of major depressive disorder without prior episode, unspecified depression episode severity ([facility]) documented in this encounter [facility]* Diagnosis Tremor, unspecified- Primary Overweight (BMI 25.0-29.9) Overweight Encounter for wellness examination in adult- Primary Tremor, unspecified Overweight (BMI 25.0-29.9) Overweight Bipolar 1 disorder (HCC) Rash Rash and other nonspecific skin eruption Rectal bleeding Hemorrhage of rectum and anus Weight loss, unintentional- Primary Loss of weight Overweight (BMI 25.0-29.9) Overweight Bipolar 2 disorder (HCC) Other bipolar disorders Tardive dyskinesia Subacute dyskinesia due to drugs Tremor Abnormal involuntary movements Joint stiffness Stiffness of joint, not elsewhere classified, unspecified site Excessive sweating Generalized hyperhidrosis Polyuria Weight loss, unintentional- Primary Loss of weight Tardive dyskinesia Subacute dyskinesia due to drugs Mixed bipolar affective disorder, mild (HCC) Bipolar I disorder, most recent episode (or current) mixed, mild Current episode of major depressive disorder without prior episode, unspecified depression episode severity Bipolar 2 disorder (HCC) Other bipolar disorders SAMRA (generalized anxiety disorder) Generalized anxiety disorder Tremor Abnormal involuntary movements Tardive dyskinesia Subacute dyskinesia due to drugs documented in this encounter [facility]* Diagnosis Tremor, unspecified- Primary Overweight (BMI 25.0-29.9) Overweight Encounter for wellness examination in adult- Primary Tremor, unspecified Overweight (BMI 25.0-29.9) Overweight Bipolar 1 disorder (HCC) Rash Rash and other nonspecific skin eruption Rectal bleeding Hemorrhage of rectum and anus Weight loss, unintentional- Primary Loss of weight Overweight (BMI 25.0-29.9) Overweight Bipolar 2 disorder (HCC) Other bipolar disorders Tardive dyskinesia Subacute dyskinesia due to drugs Tremor Abnormal involuntary movements Joint stiffness Stiffness of joint, not elsewhere classified, unspecified site Excessive sweating Generalized hyperhidrosis Polyuria Weight loss, unintentional- Primary Loss of weight Tardive dyskinesia Subacute dyskinesia due to drugs Mixed bipolar affective disorder, mild (HCC) Bipolar I disorder, most recent episode (or current) mixed, mild Current episode of major depressive disorder without prior episode, unspecified depression episode severity Bipolar 2 disorder (HCC) Other bipolar disorders SAMRA (generalized anxiety disorder) Generalized anxiety disorder Tremor Abnormal involuntary movements Tardive dyskinesia Subacute dyskinesia due to drugs documented in this encounter [facility]* Diagnosis 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 Dyskinesia, tardive Subacute dyskinesia due to drugs 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 Parkinsonism [facility] 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 Dyskinesia, tardive Subacute dyskinesia due to drugs [facility] Diagnosis Tremor, unspecified- Primary Overweight (BMI 25.0-29.9) Overweight Encounter for wellness examination in adult- Primary Tremor, unspecified Overweight (BMI 25.0-29.9) Overweight Bipolar 1 disorder (HCC) Rash Rash and other nonspecific skin eruption Rectal bleeding Hemorrhage of rectum and anus Weight loss, unintentional- Primary Loss of weight Overweight (BMI 25.0-29.9) Overweight Bipolar 2 disorder (HCC) Other bipolar disorders Tardive dyskinesia Subacute dyskinesia due to drugs Tremor Abnormal involuntary movements Joint stiffness Stiffness of joint, not elsewhere classified, unspecified site Excessive sweating Generalized hyperhidrosis Polyuria Weight loss, unintentional- Primary Loss of weight Tardive dyskinesia Subacute dyskinesia due to drugs Mixed bipolar affective disorder, mild (HCC) Bipolar I disorder, most recent episode (or current) mixed, mild Tardive dyskinesia- Primary Subacute dyskinesia due to drugs SAMRA (generalized anxiety disorder) Generalized anxiety disorder Bipolar 2 disorder (HCC) Other bipolar disorders documented in this encounter [facility]* Diagnosis Adjustment disorder with mixed anxiety and depressed mood- Primary 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 Dyskinesia, tardive Subacute dyskinesia due to drugs [facility] Diagnosis Tremor, unspecified- Primary Overweight (BMI 25.0-29.9) Overweight Encounter for wellness examination in adult- Primary Tremor, unspecified Overweight (BMI 25.0-29.9) Overweight Bipolar 1 disorder (HCC) Rash Rash and other nonspecific skin eruption Rectal bleeding Hemorrhage of rectum and anus Weight loss, unintentional- Primary Loss of weight Overweight (BMI 25.0-29.9) Overweight Bipolar 2 disorder (HCC) Other bipolar disorders Tardive dyskinesia Subacute dyskinesia due to drugs Tremor Abnormal involuntary movements Joint stiffness Stiffness of joint, not elsewhere classified, unspecified site Excessive sweating Generalized hyperhidrosis Polyuria Weight loss, unintentional- Primary Loss of weight Tardive dyskinesia Subacute dyskinesia due to drugs Mixed bipolar affective disorder, mild (HCC) Bipolar I disorder, most recent episode (or current) mixed, mild Bipolar 2 disorder (HCC) Other bipolar disorders SAMRA (generalized anxiety disorder) Generalized anxiety disorder Tardive dyskinesia Subacute dyskinesia due to drugs documented in [facility] encounter [facility]* Diagnosis Tremor, unspecified- Primary Overweight (BMI 25.0-29.9) Overweight Encounter for wellness examination in adult- Primary Tremor, unspecified Overweight (BMI 25.0-29.9) Overweight Bipolar 1 disorder (HCC) Rash Rash and other nonspecific skin eruption Rectal bleeding Hemorrhage of rectum and anus Weight loss, unintentional- Primary Loss of weight Overweight (BMI 25.0-29.9) Overweight Bipolar 2 disorder (HCC) Other bipolar disorders Tardive dyskinesia Subacute dyskinesia due to drugs Tremor Abnormal involuntary movements Joint stiffness Stiffness of joint, not elsewhere classified, unspecified site Excessive sweating Generalized hyperhidrosis Polyuria Weight loss, unintentional- Primary Loss of weight Tardive dyskinesia Subacute dyskinesia due to drugs Mixed bipolar affective disorder, mild (HCC) Bipolar I disorder, most recent episode (or current) mixed, mild Bipolar 2 disorder (HCC) Other bipolar disorders SAMRA (generalized anxiety disorder) Generalized anxiety disorder [facility] encounter [facility] Consultation (Routine) - Pending Review Specialty Diagnoses / Procedures Referred By Ramiro hobson Referred To Contact Neurology Diagnoses Tremor, unspecified Procedures [place] OFFICE/OUTPATIENT NEW HIGH MDM 60 MINUTES Georgia Davey NP [address] [place] [address] Estefania Sherman NP [address] [place] [address] Referral ID Status Reason Start Date Expiration Date Visits Requested Visits Authorized [id number] Pending Review Specialty Services Required 04/19/2024 10/16/2024 1 1 [facility] N[facility]ative* Consultation (Routine) - Authorized Specialty Diagnoses / Procedures Referred By Contac t Referred To Contact Physical Therapy Diagnoses S/P arthroscopy of right shoulder Procedures [place] OFFICE/OUTPATIENT NEW [facility] MDM 60 MINUTES Gio Nova, PA [address] [place] [address] Norah Cardenas, PT [address] [place] [address] Referral ID Status Reason Start Date Expiration Date Visits Requested Visits Authorized [id number] Authorized Consult and Treat 08/14/2023 02/10/2024 20 20 [facility] Summary Purpose Family History No Family History Records FoundNo Family History Records FoundNo Family History Records Found Advance Directives No Advanced Directives Records FoundNo Advanced Directives Records FoundNo Advanced Directives Records Found Additional Source Comments (unrecognized sect ion and content) No Status Records FoundNo Status Records FoundNo Status Records Found INFORMATION SOURCE (unrecogn ized section and content) DATE CREATED AUTHOR 04/26/2022 [facility] DATE CREATED AUTHOR AUTHOR'S ORGANIZ ATION 02/24/2025 [facility] EPIC DATE CREATED AUTHOR AUTHOR'S ORGANIZ ATION 03/08/2025 [facility] Care Teams (unrecognized sec tion and content) Dynamometer Tuner Relationship Specialty Start Date End Date Montrell Serrano MD [address] [place] [address] PCP - General Family Medicine 08/10/23 Georgia Davey NP [address] [place] [address] Nurse Practitioner Family Medicine 07/20/22 Georgia Davey NP [address] [place] [address] Referring Physician Family Medicine 05/04/23 Dynamometer Tuner Relationship Specialty Start Date End Date Montrell Serrano MD [address] [place] [address] PCP - General Family Medicine 08/10/23 Georgia Davey NP [address] [place] [address] Nurse Practitioner Family Medicine 07/20/22 Georgia Davey NP [address] [place] [address] Referring Physician Family Medicine 05/04/23 Dynamometer Tuner Relationship Specialty Start Date End Date Montrell Serrano MD [address] [place] [address] PCP - General Family Medicine 08/10/23 Georgia Davey NP [address] [place] [address] Nurse Practitioner Family Medicine 07/20/22 Georgia Davey NP [address] [place] [address] [address] Referring Physician Family Medicine 05/04/23 Dynamometer Tuner Relationship Specialty Start Date End Date Montrell Serrano MD [address] [place] [address] PCP - General Family Medicine 08/10/23 Georgia Davey NP [address] [place] [address] Nurse Practitioner Family Medicine 07/20/22 Georgia Davey NP [address] [place] [address] Referring Physician Family Medicine 05/04/23 Dynamometer Tuner Relationship Specialty Start Date End Date Montrell Serrano MD [address] [place] [address] PCP - General Family Medicine 08/10/23 Georgia Davey NP [address] [place] [address] Nurse Practitioner Family Medicine 07/20/22 Georgia Davey NP [address] [place] [address] Referring Physician Family Medicine 05/04/23 Dynamometer Tuner Relationship Specialty Start Date End Date Montrell Serrano MD [address] [place] [address] PCP - General Family Medicine 05/04/23 08/09/23 Montrell Serrano MD [address] [place] [address] PCP - General Family Medicine 08/10/23 Georgia Davey NP [address] [place] [address] Nurse Practitioner Family Medicine 07/20/22 Georgia Davey NP [address] [place] [address] Referring Physician Family Medicine 05/04/23 Dynamometer Tuner Relationship Specialty Start Date End Date Montrell Serrano MD [address] [place] [address] PCP - General Family Medicine 08/10/23 Georgia Davey NP [address] [place] [address] Nurse Practitioner Family Medicine 07/20/22 Georgia Davey NP [address] [place] [address] Referring Physician Family Medicine 05/04/23 Dynamometer Tuner Relationship Specialty Start Date End Date Montrell Serrano MD [address] [place] [address] PCP - General Family Medicine 08/10/23 Georgia Davey NP [address] [place] [address] Nurse Practitioner Family Medicine 07/20/22 Georgia Davey NP [address] [place] [address] Referring Physician Family Medicine 05/04/23 Dynamometer Tuner Relationship Specialty Start Date End Date Montrell Serrano MD [address] [place] [address] PCP - General Family Medicine 08/10/23 Georgia Davey NP [address] [place] [address] Nurse Practitioner Family Medicine 07/20/22 Georgia Davey NP [address] [place] [address] Referring Physician Family Medicine 05/04/23 Dynamometer Tuner Relationship Specialty Start Date End Date Montrell Serrano MD [address] [place] [address] PCP - General Family Medicine 08/10/23 Georgia Davey NP [address] [place] [address] Nurse Practitioner Family Medicine 07/20/22 Georgia Davey NP [address] [place] [address] Referring Physician Family Medicine 05/04/23 Dynamometer Tuner Relationship Specialty Start Date End Date Montrell Serrano MD [address] [place] [address] PCP - General Family Medicine 08/10/23 Georgia Davey NP [address] [place] [address] Nurse Practitioner Family Medicine 07/20/22 Georgia Davey NP [address] [place] [address] Referring Physician Family Medicine 05/04/23 Dynamometer Tuner Relationship Specialty Start Date End Date Montrell Serrano MD [address] [place] [address] PCP - General Family Medicine 08/10/23 Georgia Davey NP [address] [place] [address] Nurse Practitioner Family Medicine 07/20/22 Georgia Davey NP [address] [place] [address] Referring Physician Family Medicine 05/04/23 Dynamometer Tuner Relationship Specialty Start Date End Date Montrell Serrano MD [address] [place] [address] PCP - General Family Medicine 08/10/23 Georgia Davey NP [address] [place] [address] Nurse Practitioner Family Medicine 07/20/22 Georgia Davey NP [address] [place] [address] Referring Physician Family Medicine 05/04/23 Dynamometer Tuner Relationship Specialty Start Date End Date Montrell Serrano MD [address] [place] [address] PCP - General Family Medicine 08/10/23 Georgia Davey NP [address] [place] [address] Nurse Practitioner Family Medicine 07/20/22 Georgia Davey NP [address] [place] [address] Referring Physician Family Medicine 05/04/23 Dynamometer Tuner Relationship Specialty Start Date End Date Montrell Serrano MD [address] [place] [address] PCP - General Family Medicine 08/10/23 Georgia Davey NP [address] [place] [address] Nurse Practitioner Family Medicine 07/20/22 Georgia Davey NP [address] [place] [address] Referring Physician Family Medicine 05/04/23 Dynamometer Tuner Relationship Specialty Start Date End Date Montrell Serrano MD [address] [place] [address] PCP - General Family Medicine 08/10/23 Georgia Davey NP [address] [place] [address] Referring Physician Family Medicine 05/04/23 Kwame Fleming NP [address] [address] Nurse Practitioner Behavioral Health 06/22/24 Nadia Swift DO [address] [phone] Neurologist Neurology 06/22/24 Dynamometer Tuner Relationship Specialty Start Date End Date Montrell Serrano MD [address] [place] [address] PCP - General Family Medicine 08/10/23 Georgia Davey NP [address] [place] [address] Referring Physician Family Medicine 05/04/23 Kwame Fleming NP [address] [address] Nurse Practitioner Behavioral Health 06/22/24 Nadia Swift DO [address] [place] [phone] Neurologist Neurology 06/22/24 Dynamometer Tuner Relationship Specialty Start Date End Date Montrell Serrano MD [address] [place] [address] PCP - General Family Medicine 08/10/23 Georgia Davey NP [address] [place] [address] Referring Physician Family Medicine 05/04/23 Kwame Fleming NP [address] [address] Nurse Practitioner Behavioral Health 06/22/24 Nadia Swift DO [address] [phone] Neurologist Neurology 06/22/24 Dynamometer Tuner Relationship Specialty Start Date End Date Montrell Serrano MD [address] [place] [address] PCP - General Family Medicine 08/10/23 Georgia Davey NP [address] [place] [address] Referring Physician Family Medicine 05/04/23 Kwame Fleming NP [address] [address] Nurse Practitioner Behavioral [facility] 06/22/24 Nadia Swift DO [address] [place] [phone] Neurologist Neurology 06/22/24 Dynamometer Tuner Relationship Specialty Start Date End Date Montrell Serrano MD [address] [place] [address] PCP - General Family Medicine 08/10/23 Georgia Davey NP [address] [place] [address] Referring Physician Family Medicine 05/04/23 Kwame Fleming NP [address] [address] Nurse Practitioner Behavioral Health 06/22/24 Nadia Swift DO [address] [phone] Neurologist Neurology 06/22/24 Dynamometer Tuner Relationship Specialty Start Date End Date Montrell Serrano MD [address] [place] [address] PCP - General Family Medicine 08/10/23 Georgia Davey NP [address] [place] [address] Referring Physician Family Medicine 05/04/23 Kwame Fleming NP [address] [address] Nurse Practitioner Behavioral Health 06/22/24 Nadia Swift DO [address] [place] [phone] Neurologist Neurology 06/22/24 Dynamometer Tuner Relationship Specialty Start Date End Date Montrell Serrano MD [address] [place] [address] PCP - General Family Medicine 08/10/23 Georgia Davey NP [address] [place] [address] Referring Physician Family Medicine 05/04/23 Kawme Fleming NP [address] [address] Nurse Practitioner Behavioral Health 06/22/24 Nadia Swift DO [address] [place] [phone] Neurologist Neurology 06/22/24 Dynamometer Tuner Relationship Specialty Start Date End Date Montrell Serrano MD [address] [place] [address] PCP - General Family Medicine 08/10/23 Georgia Davey NP [address] [place] [address] Referring Physician Family Medicine 05/04/23 Kwame Fleming [facility] [address] [phone] Nurse Practitioner Behavioral Health 06/22/24 Nadia Swift DO [address] [place] [phone] Neurologist Neurology 06/22/24 Armen Hernández LPC Freezing Room Worker Behavioral Health 08/24/24 Dynamometer Tuner Relationship Specialty Start Date End Date Montrell Serrano MD [address] [place] [address] PCP - General Family Medicine 08/10/23 Georgia Davey NP [address] [place] [address] Referring Physician Family Medicine 05/04/23 [facility] 112 [facility] [address] [place] [address] Nurse Practitioner Behavioral Health 06/22/24 Nadia Swift DO [address] [phone] Neurologist Neurology 06/22/24 Armen Hernández LPC Freezing Room Worker Behavioral Health 08/24/24 Dynamometer Tuner Relationship Specialty Start Date End Date Montrell Serrano MD [address] [place] [address] PCP - General Family Medicine 08/10/23 Georgia Davey NP [address] [place] [address] Referring Physician Family Medicine 05/04/23 Kwame Fleming [facility] [address] [address] [place] [address] Nurse Practitioner Behavioral Health 06/22/24 Nadia Swift DO [address] [address] [place] [phone] Neurologist Neurology 06/22/24 Armen Hernández LPC Freezing Room Worker Behavioral Health 08/24/24 Dynamometer Tuner Relationship Specialty Start Date End Date Montrell Serrano MD [address] [place] [phone] PCP - General Family Medicine 08/10/23 Georgia Davey, JA [address] [place] [phone] Referring Physician Family Medicine 05/04/23 [facility] [address] [facility] [address] [place] [address] Nurse Practitioner Behavioral Health 06/22/24 Nadia Swift DO [address] [place] [phone] Neurologist Neurology 06/22/24 Armen Hernández LPC Freezing Room Worker Behavioral Health 08/24/24 Dynamometer Tuner Relationship Specialty Start Date End Date Montrell Serrano MD [address] [place] [phone] PCP - General Family Medicine 08/10/23 Georgia Davey, JA [address] [place] [phone] Referring Physician Family Medicine 05/04/23 Kwame Fleming [facility] [address] [facility] [place] [address] Nurse Practitioner Behavioral Health 06/22/24 Nadia Swift DO [address] [place] [phone] Neurologist Neurology 06/22/24 Armen Hernández LPC Freezing Room Worker Behavioral Health 08/24/24 Dynamometer Tuner Relationship Specialty Start Date End Date Montrell Serrano MD [address] [place] [phone] PCP - General Family Medicine 08/10/23 Georgia Davey NP [address] [place] [phone] Referring Physician Family Medicine 05/04/23 Kwame Fleming [facility] [address] [facility] [address] [place] [phone] Nurse Practitioner Behavioral Health 06/22/24 Nadia Swift DO [address] [place] [phone] Neurologist Neurology 06/22/24 Armen Hernández LPC Freezing Room Worker Behavioral Health 08/24/24 Dynamometer Tuner Relationship Specialty Start Date End Date Montrell Serrano MD [address] [place] [phone] PCP - General Family Medicine 08/10/23 Georgia Davey NP [address] [place] [phone] Referring Physician Family Medicine 05/04/23 Kwame Fleming [facility] [address] [facility] [address] [place] [phone] Nurse Practitioner Behavioral Health 06/22/24 Nadia Swift DO [address] [phone] Neurologist Neurology 06/22/24 Es ArmenKIM Freezing Room Worker Behavioral Health 08/24/24 Dynamometer Tuner Relationship Specialty Start Date End Date Montrell Serrano MD [address] [place] [phone] PCP - General Family Medicine 08/10/23 Georgia Davey, JA [address] [place] [phone] Referring Physician Family Medicine 05/04/23 Kwame Fleming [facility] [address] [facility] [address] [place] [phone] Nurse Practitioner Behavioral Health 06/22/24 Nadia Swift DO [address] [phone] Neurologist Neurology 06/22/24 Dynamometer Tuner Relationship Specialty Start Date End Date Montrell Serrano MD [address] [place] [phone] PCP - General Family Medicine 08/10/23 Georgia Davey, JA [address] [place] [address] Referring Physician Family Medicine 05/04/23 Kwame Fleming [facility] [address] [facility] [address] [place] [address] Nurse Practitioner Behavioral Health 06/22/24 Nadia Swift DO [address] [phone] Neurologist Neurology 06/22/24 Dynamometer Tuner Relationship Specialty Start Date End Date Montrell Serrano MD [address] [place] [phone] PCP - General Family Medicine 08/10/23 Georgia Davey, JA [address] [place] [phone] Referring Physician Family Medicine 05/04/23 Kwame Fleming [facility] [address] [place] [phone] Nurse Practitioner Behavioral Health 06/22/24 Nadia Swift DO [address] [phone] Neurologist Neurology 06/22/24 Dynamometer Tuner Relationship Specialty Start Date End Date Montrell Serrano MD [address] [place] [phone] PCP - General Family Medicine 08/10/23 Georgia Davey, JA [address] [place] [phone] Referring Physician Family Medicine 05/04/23 Kwame Fleming [facility] [address] [place] [address] [address] [place] [phone] Nurse Practitioner Behavioral Health 06/22/24 Nadia Swift DO [address] [phone] Neurologist Neurology 06/22/24 Dynamometer Tuner Relationship Specialty Start Date End Date Montrell Serrano MD PCP - General Family Medicine 08/10/23 Georgia Davey NP Referring Physician Family Medicine 05/04/23 Kwame Fleming [facility] [address] [phone] Nurse Practitioner Behavioral Health 06/22/24 Nadia Swift DO [address] [phone] Neurologist Neurology 06/22/24 Dynamometer Tuner Relationship Specialty Start Date End Date Montrell Serrano MD PCP - General Family Medicine 08/10/23 Georgia Davey NP Referring Physician Family Medicine 05/04/23 Kwame Fleming [facility] [address] [place] [address] [address] [place] [address] Nurse Practitioner Behavioral Health 06/22/24 Nadia Swift DO [address] [facility] [address] [place] [address] Neurologist Neurology 06/22/24 Reason for Visit (unrecogniz ed section and content) Reason Comments Tremors Specialty Diagnoses / Procedures Referred By Contac t Referred To Contact Neurology Diagnoses Tremor, unspecified Procedures [place] OFFICE/OUTPATIENT NEW HIGH MDM 60 MINUTES Georgia Davey NP [address] [place] [address] Phone: tel: fax: Galindo Sen MD [address] [place] [address] Phone: tel: fax: Referral ID Status Reason Start Date Expiration Date V isits Requested Visits Authorized [id number] Closed Specialty Services Required 04/19/2024 10/16/2024 1 1 Reason Comments Tardive Dyskinesia Tremors Reason Comments Psychiatric Evaluation Specialty Diagnoses / Procedures Referred By Contac t Referred To Contact Behavioral Health Diagnoses Tardive dyskinesia Tremor, unspecified Procedures [place] OFFICE/OUTPATIENT NEW HIGH [facility] Jim Lees NP [address] [place] [address] Phone: tel: fax: Kwame Fleming NP [address] [facility] [address] [place] [address] Phone: tel: fax: Referral ID Status Reason Start Date Expiration Date V isits Requested Visits Authorized [id number] Closed Specialty Services Required 06/02/2024 11/29/2024 1 1 Reason Comments Colonoscopy Pt presents today fo r a colonoscopy consult. Pt denies/admits to: denies having a colonoscopy before. Last colonoscopy was never. Pt denies abdominal pain. Pt admits to rectal bleeding. Pt denies changes in bowel movements. Pt denies a family history of colon cancer that they know of. Pt states that he has been having rectal bleeding for at least 4 weeks. He states that it was spotting in the beginning, but now it is more persistent. He states he might have internal hemorrhoids. Reason Comments Med Management Follow-up Specialty Diagnoses / Procedures Referred By Contac t Referred To Contact Behavioral Health Diagnoses Counseling Procedures Counseling [facility] [address] [facility] [address] [place] [address] Phone: tel: fax: [facility] [address] [facility] [address] [place] [address] Phone: tel: fax: Referral ID Status Reason Start Date Expiration Date Visits Re quested Visits Authorized [id number] Closed 06/29/2024 12/26/2024 1 1 Reason Comments Bipolar Specialty Diagnoses / Procedures Referred By Contac t Referred To Contact Behavioral Health Diagnoses Counseling Procedures Counseling [facility] [address] [facility] [address] [place] [address] Phone: tel: fax: [facility] [address] [facility] [address] [place] [address] Phone: tel: fax: Reason Onset Date Comments Advice Only 10/17/2024 Reason Comments Weight Check Reason Comments New Patient Movement Disorder (T ardive Dyskinesia; Tremors) Reason Comments PT Eval Specialty Diagnoses / Procedures Referred By Contac t Referred To Contact [facility] Diagnoses Functional movement disorder Dyskinesia, tardive Procedures CONSULT TO PHYSICAL THERAPY PHYSICAL THERAPY EVALUATION HIGH COMPLEX 45 MINS THERAPEUTIC EXERCISES RE, EA 15 MIN. Olena Gomez MD [address] [place] [address] Phone: tel: fax: [facility] [address] [place] [phone] Referral ID Status Reason Start Date Expiration Date Visits Requested Visits Authorized [id number] Authorized Auto-Generat ed Referral 07/20/2024 07/19/2025 40 40 Reason Comments Consult Specialty Diagnoses / Procedures Referred By Contac t Referred To Contact Psychology / [facility] Diagnoses Functional movement disorder Dyskinesia, tardive Procedures OFFICE/OUTPATIENT NEW HIGH MDM 60 MINUTES Olena Gomez MD [address] [place] [address] Phone: tel: fax: [facility] [address] [facility] [address] Phone: tel: Referral ID Status Reason Start Date Expiration Date V isits Requested Visits Authorized [id number] Closed PCP Requested Referral 02/15/2025 05/16/2025 1 1 Reason Comments Follow-up Med Management Bipolar Anxiety Source Comments (unrecognize d section and content) In the event this informatio n is protected by the Federal Confidentiality of Alcohol and Drug Abuse Patient Records regulations: The Federal rules restrict any use of the information to criminally investigate or prosecute any alcohol or drug abuse patient.[facility] the event this information is protected by the Federal Confidentiality of Alcohol and Drug Abuse Patient Records regulations: The Federal rules restrict any use of the information to criminally investigate or prosecute any alcohol or drug abuse patient.[facility] the event this information is protected by the Federal Confidentiality of Alcohol and Drug Abuse Patient Records regulations: The Federal rules restrict any use of the information to criminally investigate or prosecute any alcohol or drug abuse patient.[facility] the event this information is protected by the Federal Confidentiality of Alcohol and Drug Abuse Patient Records regulations: The Federal rules restrict any use of the information to criminally investigate or prosecute any alcohol or drug abuse patient.[facility] FOR RECORDS PERTAINING TO PATIENTS WHO ARE [...] BE BASED ON THE PRIMARY CLINICAL RECORDS. [facility] [employer] [facility] provides no warranty or guarantee of the accuracy or completeness of information in this document.
== END 2025-03-30 07:23 | disposition home or self-care (01) ==
LOC: CT 07:22
PROVIDERS: PCP Nurse Practitioner; Visit Provider Nurse Practitioner
DX: R63.4 Abnormal weight loss (principal); N28.1 Cyst of kidney, acquired; N20.0 Calculus of kidney
CPT/HCPCS: 71260; 74177; Q9967

== ENCOUNTER 2025-04-26 15:59 | Outpatient (OUT) | payer OTHER, SELFPAY ==
--- OUTSIDE RECORDS SUMMARY | 2025-04-24 15:30 | XMS_ITS | CCD ---
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 LIPID, FT3 #### [facility] [address] [address] [address] Lazara Mott Cholesterol in HDL [Mass/Vol] 41 mg/dL Normal [facility] Comment on above: Performed By: #### C MP, TSH, LIPID, FT3 #### [facility] [address] [address] [address] Lazara Mott Cholesterol in LDL [Mass/Vol] 94.0 mg/dL Normal [facility] Comment on above: Performed By: #### C MP, TSH, LIPID, FT3 #### [facility] [address] [address] [address] Lazara Mott Cholesterol.total/ Cholesterol in HDL [Mass ratio] 3.9 {ratio} Normal [facility] Comment on above: Performed By: #### C MP, TSH, LIPID, FT3 #### [facility] [address] [address] [address] Lazara Mott HDL NORMAL > or = 60 mg/dl - LO W CARDIOVASCULAR RISK <40 mg/dl - HIGH CARDIOVASCULAR RISK Normal [facility] Comment on above: Performed By: #### C MP, TSH, LIPID, FT3 #### [facility] [address] [address] [address] Lazara Mott LDL CALC NORMAL SEE BELOW Normal [facility] Comment on above: Result Comment: <100 mg/dl OPTIMAL 100 - 129 mg/dl NEAR OR ABOVE OPTIMAL 130 - 159 mg/dl BORDERLINE HIGH 160 - 189 mg/dl HIGH >190 mg/dl VERY HIGH Performed By: #### C MP, TSH, LIPID, FT3 #### [facility] [address] [address] [address] Lazara Mott Triglyceride [Mass/Vol] 120 mg/dL Normal <=150 [facility] Comment on above: Performed By: #### C MP, TSH, LIPID, FT3 #### [facility] [address] [address] [address] Lazara Mott VLDL CALC 24.0 mg/dL Normal [facility] Comment on above: Performed By: #### C MP, TSH, LIPID, FT3 #### [facility] [address] [place] [address] Dr. Lazara Mott PROF 14(COMP METB)on 022 Albumin [Mass/Vol] 4.1 g/dL Normal 3.5-5.0 [facility] Comment on above: Performed By: #### C MP, TSH, LIPID, FT3 #### [facility] [address] [place] [address] Dr. Lazara Mott Albumin/Globulin [Mass ratio] 1.2 {ratio} Normal [facility] Comment on above: Performed By: #### C MP, TSH, LIPID, FT3 #### [facility] [address] [place] [address] Dr. Lazara Mott ALP [Catalytic activity/Vol] 79 U/L Normal 38-126 [facility] Comment on above: Performed By: #### C MP, TSH, LIPID, FT3 #### [facility] [address] [place] [address] Dr. Lazara Mott ALT [Catalytic activity/Vol] 76 U/L Critically high 21-72 [facility] Comment on above: Performed By: #### C MP, TSH, LIPID, FT3 #### [facility] [address] [place] [address] Dr. Lazara Mott Anion gap [Moles/Vol] 10.6 mmol/L Normal [facility] Comment on above: Performed By: #### C MP, TSH, LIPID, FT3 #### [facility] [address] [place] [address] Dr. Lazara Mott AST [Catalytic activity/Vol] 21 U/L Normal 17-59 [facility] Comment on above: Performed By: #### C MP, TSH, LIPID, FT3 #### [facility] [address] [place] [address] Dr. Lazara Mott Bilirubin [Mass/Vol] 0.4 mg/dL Normal 0.2-1.3 [facility] Comment on above: Performed By: #### C MP, TSH, LIPID, FT3 #### [facility] [address] [place] [address] Dr. Lazara Mott Calcium [Mass/Vol] 9.0 mg/dL Normal 8.4-10.2 [facility] Comment on above: Performed By: #### C MP, TSH, LIPID, FT3 #### [facility] [address] [address] [address] Lazara Mott Chloride [Moles/Vol] 104 mmol/L Normal 98-107 [facility] Comment on above: Performed By: #### C MP, TSH, LIPID, FT3 #### [facility] [address] [address] [address] Lazara Mott CO2 [Moles/Vol] 27.1 mmol/L Normal 22.0-30.0 [facility] Comment on above: Performed By: #### C MP, TSH, LIPID, FT3 #### [facility] [address] [place] [address] Dr. Lazara Mott Creatinine [Mass/Vol] 1.13 mg/dL Normal 0.66-1.25 [facility] Comment on above: Performed By: #### C MP, TSH, LIPID, FT3 #### [facility] [address] [place] [address] Dr. Lazara Mott EGFR-AF WELSH >60 Normal >=60 [facility] Comment on above: Performed By: #### C MP, TSH, LIPID, FT3 #### [facility] [address] [place] [address] Dr. Lazara Mott EGFR-NON AF WELSH >60 Normal >=60 [facility] Comment on above: Performed By: #### C MP, TSH, LIPID, FT3 #### [facility] [address] [address] [address] Lazara Mott Globulin (S) [Mass/Vol] 3.3 g/dL Normal [facility] Comment on above: Performed By: #### C MP, TSH, LIPID, FT3 #### [facility] [address] [place] [address] Dr. Lazara Mott Glucose [Mass/Vol] 95 mg/dL Normal 74-106 [facility] Comment on above: Performed By: #### C MP, TSH, LIPID, FT3 #### [facility] [address] [place] [address] Dr. Lazara Mott Potassium [Moles/Vol] 3.7 mmol/L Normal 3.4-5.0 [facility] Comment on above: Performed By: #### C MP, TSH, LIPID, FT3 #### [facility] [address] [place] [address] Dr. Lazara Mott Protein [Mass/Vol] 7.4 g/dL Normal 6.1-8.2 [facility] Comment on above: Performed By: #### C MP, TSH, LIPID, FT3 #### [facility] [address] [place] [address] Dr. Lazara Mott Sodium [Moles/Vol] 138 mmol/L Normal 137-145 [facility] Comment on above: Performed By: #### C MP, TSH, LIPID, FT3 #### [facility] [address] [place] [address] Dr. Lzaara Mott Urea nitrogen [Mass/Vol] 13.0 mg/dL Normal 9.0-20.0 [facility] Comment on above: Performed By: #### C MP, TSH, LIPID, FT3 #### [facility] [address] [place] [address] Dr. Lazara Mott Urea nitrogen/Creatinin e [Mass ratio] 11.5 mg/mg Normal [facility] Comment on above: Performed By: #### C MP, TSH, LIPID, FT3 #### [facility] [address] [place] [address] Dr. Lazara Mott TSHon 08-20-2021 TSH 2.329 uIU/mL Normal 0.470-4.680 [facility] Comment on above: Performed By: #### C MP, TSH, LIPID, FT3 #### [facility] [address] [place] [address] Dr. Lazara Mott TSH RANGE SEE BELOW Normal [facility] Comment on above: Result Comment: <0.3 4 UIU/ml HYPERTHYROID 0.34-5.60 UIU/ml EUTHYROID >5.60 UIU/ml HYPOTHYROID Performed By: #### C MP, TSH, LIPID, FT3 #### [facility] [address] [address] [address] Lazara Mott XR CHEST 2 Von [...] by: LISSETH SANTOS Date: 2021-08-20 10:06 Normal [facility] Vital Signs Date Time Vital Sign Value Performing Clinician [facility] 02-22-2025 07:52-0400 Body mass index (BMI) [Ratio] 25.5 kg/m2 Kwame Rodríguez HNP-Above Security Work Phone: [facility] 02-22-2025 07:52-0400 Body weight 85.28 kg Kwame Keyeston HNP-Above [employer] Work Phone: [facility] 02-22-2025 07:52-0400 Diastolic blood pressure 72 mm[Hg] Kwame Rodríguez HNP-Above [employer] Work Phone: [facility] 02-22-2025 07:52-0400 Heart rate 71 /min Kwame Rodríguez HNP-Above [employer] Work Phone: [facility] 02-22-2025 07:52-0400 Systolic blood pressure 100 mm[Hg] Kwame Rodríguez HNP-Above Security Work Phone: [facility] 02-03-2025 09:28-0400 Diastolic blood pressure 80 mm[Hg] Olena Gomez MD Work Phone: [facility] 02-03-2025 09:28-0400 Heart rate 71 /min Olena Gomez MD Work Phone: [facility] 02-03-2025 09:28-0400 SaO2% (BldA) [Mass fraction] 99 % Olena Gomez MD Work Phone: [facility] 02-03-2025 09:28-0400 Systolic blood pressure 119 mm[Hg] Olena Gomez MD Work Phone: [facility] 01-25-2025 07:56-0400 Body mass index (BMI) [Ratio] 26.04 kg/m2 Kwame Rodríguez PMHNP-BC Work Phone: [facility] 01-25-2025 07:56-0400 Body weight 87.09 kg Kwame Rodríguez PMHNP-BC Work Phone: [facility] 01-25-2025 07:56-0400 Diastolic blood pressure 72 mm[Hg] Kwame Rodríguez PMHNP-BC Work Phone: [facility] 01-25-2025 07:56-0400 Heart rate 67 /min Kwame Rodríguez PMHNP-BC Work Phone: [facility] 01-25-2025 07:56-0400 Systolic blood pressure 108 mm[Hg] Kwame Rodríguez PMHNP-BC Work Phone: [facility] 01-24-2025 08:32-0400 Body mass index (BMI) [Ratio] 26.04 kg/m2 Georgia Yogeshz [employer] Work Phone: [facility] 01-24-2025 08:32-0400 Body temperature 97.81 [degF] Georgia Yogeshz [employer] Work Phone: [facility] 01-24-2025 08:32-0400 Body weight 87.09 kg Georgia Aichholz [employer] Work Phone: [facility] 01-24-2025 08:32-0400 Diastolic blood pressure 76 mm[Hg] Georgia Aichholz [employer] Work Phone: [facility] 01-24-2025 08:32-0400 Heart rate 71 /min Georgia Aicnicolaz [employer] Work Phone: [facility] 01-24-2025 08:32-0400 Respiratory rate 18 /min Georgia Davey [employer] Work Phone: [facility] 01-24-2025 08:32-0400 SaO2% (BldA) [Mass fraction] 97 % Georgia Davey [employer] Work Phone: [facility] 01-24-2025 08:32-0400 Systolic blood pressure 118 mm[Hg] Georgia Davey [employer] Work Phone: [facility] 11-30-2024 07:49-0400 Body mass index (BMI) [Ratio] 26.99 kg/m2 Kwame Keyeston PMHNP-BC Work Phone: [facility] 11-30-2024 07:49-0400 Body weight 90.27 kg Kwame Rodríguez PMHNP-BC Work Phone: [facility] 11-30-2024 07:49-0400 Diastolic blood pressure 64 mm[Hg] Kwame Rodríguez PMHNP-BC Work Phone: [facility] 11-30-2024 07:49-0400 Heart rate 86 /min Kwame Rodríguez PMHNP-BC Work Phone: [facility] 11-30-2024 07:49-0400 Systolic blood pressure 116 mm[Hg] Kwame Rodríguez PMHNP-BC Work Phone: [facility] 11-09-2024 07:55-0400 Body mass index (BMI) [Ratio] 26.99 kg/m2 Kwame Rodríguez PMHNP-BC Work Phone: [facility] 11-09-2024 07:55-0400 Body weight 90.27 kg Kwame Rodríguez PMHNP-BC Work Phone: [facility] 11-09-2024 07:55-0400 Diastolic blood pressure 70 mm[Hg] Kwame Rodríguez PMHNP-BC Work Phone: [facility] 11-09-2024 07:55-0400 Heart rate 67 /min Kwame Rodríguez PMHNP-BC Work Phone: [facility] 11-09-2024 07:55-0400 Systolic blood pressure 110 mm[Hg] Kwame Rodríguez PMHNP-BC Work Phone: [facility] 10-19-2024 07:49-0400 Body mass index (BMI) [Ratio] 27.53 kg/m2 Kwame Rodríguez PMHNP-BC Work Phone: [facility] 10-19-2024 07:49-0400 Body weight 92.08 kg Kwame Rodríguez PMHNP-BC Work Phone: [facility] 10-19-2024 07:49-0400 Diastolic blood pressure 69 mm[Hg] Kwame Rodríguez PMHNP-BC Work Phone: [facility] 10-19-2024 07:49-0400 Heart rate 68 /min Kwame Rodríguez PMHNP-BC Work Phone: [facility] 10-19-2024 07:49-0400 Systolic blood pressure 112 mm[Hg] Kwame Rodríguez PMHNP-BC Work Phone: [facility] 09-14-2024 10:30-0500 Body mass index (BMI) [Ratio] 28.48 kg/m2 Kwame Rodríguez PMHNP-BC Work Phone: [facility] 09-14-2024 10:30-0500 Body weight 95.25 kg Kwame Rodríguez PMHNP-BC Work Phone: [facility] 09-14-2024 10:30-0500 Diastolic blood pressure 64 mm[Hg] Kwame Rodríguez PMHNP-BC Work Phone: [facility] 09-14-2024 10:30-0500 Heart rate 67 /min Kwame Rodríguez PMHNP-BC Work Phone: [facility] 09-14-2024 10:30-0500 Systolic blood pressure 110 mm[Hg] Kwame Rodríguez PMHNP-BC Work Phone: [facility] 08-10-2024 09:18-0500 Body mass index (BMI) [Ratio] 28.48 kg/m2 Kwame Rodríguez [employer] Work Phone: [facility] 08-10-2024 09:18-0500 Body weight 95.25 kg Kwame Rodríguez [employer] Work Phone: [facility] 08-10-2024 09:18-0500 Diastolic blood pressure 72 mm[Hg] Kwame Rodríguez [employer] Work Phone: [facility] 08-10-2024 09:18-0500 Heart rate 74 /min Kwame Rodríguez [employer] Work Phone: [facility] 08-10-2024 09:18-0500 Systolic blood pressure 126 mm[Hg] Kwame Rodríguez [employer] Work Phone: [facility] 07-19-2024 08:52-0500 Body mass index (BMI) [Ratio] 28.48 kg/m2 Kwame Rodríguez [employer] Work Phone: [facility] 07-19-2024 08:52-0500 Body weight 95.25 kg Kwame Rodríguez [employer] Work Phone: [facility] 07-19-2024 08:52-0500 Diastolic blood pressure 82 mm[Hg] Kwame Rodríguez [employer] Work Phone: [facility] 07-19-2024 08:52-0500 Heart rate 68 /min Kwame Rodríguez [employer] Work Phone: [facility] 07-19-2024 08:52-0500 Systolic blood pressure 112 mm[Hg] Kwame Rodríguez [employer] Work Phone: [facility] 06-29-2024 08:48-0500 Body height 182.9 cm Jnkalee Mccullough DO Work Phone: [facility] 06-29-2024 08:48-0500 Body mass index (BMI) [Ratio] 28.54 kg/m2 Jn Cecilia DO Work Phone: [facility] 06-29-2024 08:48-0500 Body weight 95.44 kg Jn Mccullough DO Work Phone: [facility] 06-29-2024 08:48-0500 Diastolic blood pressure 68 mm[Hg] Jn Cecilia DO Work Phone: [facility] 06-29-2024 08:48-0500 Heart rate 78 /min Jn Cecilia DO Work Phone: [facility] 06-29-2024 08:48-0500 Respiratory rate 12 /min Jn Cecilia DO Work Phone: [facility] 06-29-2024 08:48-0500 SaO2% (BldA) [Mass fraction] 99 % Jn Mccullough DO Work Phone: [facility] 06-29-2024 08:48-0500 Systolic blood pressure 122 mm[Hg] Jn Mccullough DO Work Phone: [facility] 06-22-2024 08:14-0500 Body mass index (BMI) [Ratio] 28.48 kg/m2 Kwame Rodríguez [employer] Work Phone: [facility] 06-22-2024 08:14-0500 Body weight 95.25 kg Kwame Rodríguez [employer] Work Phone: [facility] 06-22-2024 08:14-0500 Diastolic blood pressure 82 mm[Hg] Kwame Rodríguez [employer] Work Phone: [facility] 06-22-2024 08:14-0500 Heart rate 73 /min Kwame Rodríguez [employer] Work Phone: [facility] 06-22-2024 08:14-0500 Systolic blood pressure 116 mm[Hg] Kwame Rodríguez [employer] Work Phone: [facility] 06-13-2024 08:44-0500 Body height 182.9 cm Georgia Tamica [employer] Work Phone: [facility] 06-13-2024 08:44-0500 Body mass index (BMI) [Ratio] 28.21 kg/m2 Georgia Davey [employer] Work Phone: [facility] 06-13-2024 08:44-0500 Body temperature 97.81 [degF] Georgia Davey [employer] Work Phone: [facility] 06-13-2024 08:44-0500 Body weight 94.35 kg Georgia Davey [employer] Work Phone: [facility] 06-13-2024 08:44-0500 Diastolic blood pressure 74 mm[Hg] Georgia Davey [employer] Work Phone: [facility] 06-13-2024 08:44-0500 Heart rate 78 /min Georgia Davey [employer] Work Phone: [facility] 06-13-2024 08:44-0500 Respiratory rate 20 /min Georgia Davey [employer] Work Phone: [facility] 06-13-2024 08:44-0500 SaO2% (BldA) [Mass fraction] 96 % Georgia Davey [employer] Work Phone: [facility] 06-13-2024 08:44-0500 Systolic blood pressure 110 mm[Hg] Georgia Davey [employer] Work Phone: [facility] 06-02-2024 08:49-0500 Body mass index (BMI) [Ratio] 28.89 kg/m2 Jim Lees [employer] Work Phone: [facility] 06-02-2024 08:49-0500 Body weight 96.62 kg Jim Lees [employer] Work Phone: [facility] 06-02-2024 08:49-0500 Diastolic blood pressure 83 mm[Hg] Jim Lees [employer] Work Phone: [facility] 06-02-2024 08:49-0500 Heart rate 96 /min Jim Lees [employer] Work Phone: [facility] 06-02-2024 08:49-0500 Systolic blood pressure 142 mm[Hg] Jim Lees [employer] Work Phone: [facility] 05-05-2024 07:51-0400 Body height 182.9 cm Christopher Jamison DO Work Phone: [facility] 05-05-2024 07:51-0400 Body mass index (BMI) [Ratio] 28.86 kg/m2 Christopher Jamison DO Work Phone: [facility] 05-05-2024 07:51-0400 Body weight 96.53 kg Christopher Jamison DO Work Phone: [facility] 05-05-2024 07:51-0400 Diastolic blood pressure 82 mm[Hg] Christopher Jamison DO Work Phone: [facility] 05-05-2024 07:51-0400 Heart rate 84 /min Christopher Jamison DO Work Phone: [facility] 05-05-2024 07:51-0400 SaO2% (BldA) [Mass fraction] 97 % Christopher Jamison DO Work Phone: [facility] 05-05-2024 07:51-0400 Systolic blood pressure 134 mm[Hg] Christopher Jamison DO Work Phone: [facility] 04-19-2024 11:15-0400 Body height 182.9 cm Georgia Davey [employer] Work Phone: [facility] 04-19-2024 11:15-0400 Body mass index (BMI) [Ratio] 28.48 kg/m2 Georgia Davey [employer] Work Phone: [facility] 04-19-2024 11:15-0400 Body temperature 98.71 [degF] Georgia Davey [employer] Work Phone: [facility] 04-19-2024 11:15-0400 Body weight 95.25 kg Georgia Davey [employer] Work Phone: [facility] 04-19-2024 11:15-0400 Diastolic blood pressure 72 mm[Hg] Georgia Davey [employer] Work Phone: [facility] 04-19-2024 11:15-0400 Heart rate 86 /min Georgia Zuñigaz [employer] Work Phone: [facility] 04-19-2024 11:15-0400 Respiratory rate 18 /min Georgia Zuñigaz [employer] Work Phone: [facility] 04-19-2024 11:15-0400 SaO2% (BldA) [Mass fraction] 97 % Georgia Zuñigaz [employer] Work Phone: [facility] 04-19-2024 11:15-0400 Systolic blood pressure 110 mm[Hg] Georgia Zuñigaz [employer] Work Phone: [facility] Healthcare Encounters Encounter Date Encounter Type Care Provider Facility Start: 05-08-2025 ambulatory Taras Vasquez ty:DAYANNA Cotton Start: 04-11-2025 ambulatory Taras STUART Facility : [facility] Start: 03-29-2025 End: 03-29-2025 Office outpatient visit 15 minutes Kwame Rodríguez PMHNP-BC Work Phone: [facility] Comment on above: Bipolar 2 disorder ( HCC); SAMRA (generalized anxiety disorder) ; Tardive dyskinesia Start: 03-29-2025 End: 03-29-2025 Orders Only Kwamekelly Rodríguez PMHNP-BC Work Phone: [facility] Comment on above: Bipolar 2 disorder ( HCC); SAMRA (generalized anxiety disorder) Start: 02-22-2025 End: 02-22-2025 Bamboo flowsheet Kwame Keyeston PMHNP-BC Work Phone: [facility] Start: 02-22-2025 End: 02-22-2025 Bamboo flowsheet Kwame Rodríguez PMHNP-BC Work Phone: [facility] Start: 02-22-2025 End: 02-22-2025 Office outpatient visit 15 minutes Kwamekelly Rodríguez PMHNP-BC Work Phone: [facility] Comment on above: Tardive dyskinesia ( Primary Dx); SAMRA (generalized anxiety disorder) ; Bipolar 2 disorder (HCC) Start: 02-22-2025 End: 02-22-2025 ambulatory KWAME RODRÍGUEZ Not Available Start: 02-16-2025 End: 02-16-2025 OT/PT/Speech Visit Myriam Luis PT Work Phone: [facility] Comment on above: Functional movement disorder; Dyskinesia, tardive Start: 02-15-2025 End: 02-15-2025 Patient encounter procedure Stevo Garcia PSYD Work Phone: [facility] Comment on above: Adjustment disorder with mixed anxiety and depressed mood (Primary Dx); Functional movement disorder; Dyskinesia, tardive Start: 02-15-2025 End: 02-15-2025 ambulatory STEVO GARCIA Facility:[facility] Start: 02-03-2025 End: 02-03-2025 E-mail encounter from caregiver Willow Ramos MD Work Phone: [facility] Start: 02-03-2025 End: 02-03-2025 Office outpatient new 45 minutes Olena Gomez MD Work Phone: [facility] Comment on above: Functional movement disorder (Primary Dx); Dyskinesia, tardive; Drug-induced parkinsonism (HCC) Start: 02-03-2025 End: 02-03-2025 ambulatory Willow Ramos MD Work Phone: [facility] Start: 01-25-2025 End: 01-25-2025 Office outpatient visit 25 minutes Kwame Rodríguez [facility]- Work Phone: [facility] Comment on above: Current episode of m ajor depressive disorder without prior episode, unspecified depression episode severity ; Bipolar 2 disorder (HCC); SAMRA (generalized anxiety disorder) ; Tremor; Tardive dyskinesia Start: 01-25-2025 End: 01-25-2025 ambulatory KWAME RODRÍGUEZ Not Available Start: 01-24-2025 End: 01-24-2025 Bamboo flowsheet Georgia Aichholz COMPUTER GAME TESTER Work Phone: [facility] Start: 01-24-2025 End: 01-24-2025 Bamboo flowsheet Georgia Aichholz COMPUTER GAME TESTER Work Phone: [facility] Start: 01-24-2025 End: 01-24-2025 Office outpatient visit 25 minutes Georgia Racielholz COMPUTER GAME TESTER Work Phone: [facility] Comment on above: Weight loss, uninten tional (Primary Dx); Tardive dyskinesia; Mixed bipolar affective disorder, mild (HCC) Start: 01-24-2025 End: 01-24-2025 ambulatory GEORGIA AICHHOLZ Not Available Start: 12-08-2024 End: 12-08-2024 ambulatory GEORGIA AICHHOLZ Not Available Start: 11-30-2024 End: 11-30-2024 Bamboo flowsheet Kwame Rodríguez PMHNP-BC Work Phone: [facility] Start: 11-30-2024 End: 11-30-2024 Bamboo flowsheet Kwame Rodríguez PMHNP-BC Work Phone: [facility] Start: 11-30-2024 End: 11-30-2024 Office outpatient visit 25 minutes Kwame Rodríguez PMHNP-BC Work Phone: [facility] Comment on above: Bipolar 2 disorder ( CMS/HCC); SAMRA (generalized anxiety disorder) (CMS/HCC); Tremor; Tardive dyskinesia; Current episode of major depressive disorder without prior episode, unspecified depression episode severity (CMS/HCC) Start: 11-30-2024 End: 11-30-2024 ambulatory KWAME RODRÍGUEZ Not Available Start: 11-09-2024 End: 11-09-2024 Bamboo flowsheet Kwame Rodríguez PMHNP-BC Work Phone: [facility] Start: 11-09-2024 End: 11-09-2024 Bamboo flowsheet Kwame Rodríguez PMHNP-BC Work Phone: [facility] Start: 11-09-2024 End: 11-09-2024 Office outpatient visit 25 minutes Kwame Rodríguez PMHNP-BC Work Phone: [facility] Comment on above: Bipolar 2 disorder ( CMS/HCC); SAMRA (generalized anxiety disorder) (CMS/HCC); Tardive dyskinesia; Tremor Start: 11-09-2024 End: 11-09-2024 ambulatory KWAME RODRÍGUEZ Not Available Start: 10-19-2024 End: 10-19-2024 Bamboo flowsheet Kwame Rodríguez PMHNP-BC Work Phone: [facility] Start: 10-19-2024 End: 10-19-2024 Bamboo flowsheet Kwame Rodríguez PMHNP-BC Work Phone: [facility] Start: 10-19-2024 End: 10-19-2024 Office outpatient visit 25 minutes Kwame Rodríguez PMHNP-BC Work Phone: [facility] Comment on above: Tardive dyskinesia; Bipolar 2 disorder (CMS/HCC); SAMRA (generalized anxiety disorder) (CMS/HCC) Start: 10-19-2024 End: 10-19-2024 ambulatory KWAME RODRÍGUEZ Not Available Start: 10-17-2024 End: 10-17-2024 Telephone encounter Kwame Rodríguez PMHNP-BC Work Phone: [facility] Comment on above: Advice Only Start: 10-05-2024 End: 10-05-2024 ambulatory KWAME RODRÍGUEZ Not Available Start: 09-14-2024 End: 09-14-2024 Bamboo flowsheet Kwame Rodríguez PMHNP-BC Work Phone: [facility] Start: 09-14-2024 End: 09-14-2024 Bamboo flowsheet Kwame Rodríguez PMHNP-BC Work Phone: [facility] Start: 09-14-2024 End: 09-14-2024 Office outpatient visit 25 minutes Kwame Rodríguez PMHNP-BC Work Phone: [facility] Comment on above: Bipolar 2 disorder ( CMS/HCC); Tardive dyskinesia; Tremor Start: 09-14-2024 End: 09-14-2024 ambulatory KWAME RODRÍGUEZ Not Available Start: 08-22-2024 End: 08-22-2024 Bamboo flowsheet Armen Valenciai BILINGUAL STUDENT TUTOR [facility] Start: 08-22-2024 End: 08-22-2024 Bamboo flowsheet Armen Addisonicki BILINGUAL STUDENT TUTOR [facility] Start: 08-22-2024 End: 08-22-2024 ambulatory ARMEN ADDISONICKI Not Available Start: 08-10-2024 End: 08-10-2024 Bamboo flowsheet Kwame Keyeston COMPUTER GAME TESTER Work Phone: [facility] Start: 08-10-2024 End: 08-10-2024 Bamboo flowsheet Kwame Rodríguez COMPUTER GAME TESTER Work Phone: [facility] Start: 08-10-2024 End: 08-10-2024 Office outpatient visit 25 minutes Kwame Rodríguez COMPUTER GAME TESTER Work Phone: [facility] Comment on above: Bipolar 2 disorder ( CMS/HCC); Tardive dyskinesia Start: 08-10-2024 End: 08-10-2024 ambulatory KWAME RODRÍGUEZ Not Available Start: 07-19-2024 End: 07-19-2024 Bamboo flowsheet Kwame Rodríguez COMPUTER GAME TESTER Work Phone: [facility] Start: 07-19-2024 End: 07-19-2024 Bamboo flowsheet Kwame Rodríguez COMPUTER GAME TESTER Work Phone: [facility] Start: 07-19-2024 End: 07-19-2024 Office outpatient visit 25 minutes Kwame Rodríguez COMPUTER GAME TESTER Work Phone: [facility] Comment on above: Bipolar 2 disorder ( CMS/HCC); Tardive dyskinesia Start: 07-19-2024 End: 07-19-2024 ambulatory KWAME RODRÍGUEZ Not Available Start: 06-29-2024 End: 06-29-2024 Bamboo flowsheet Jn Mccullough DO Work Phone: [facility] Start: 06-29-2024 End: 06-29-2024 Bamboo flowsheet Jn Mccullough DO Work Phone: [facility] Start: 06-29-2024 End: 06-29-2024 Office outpatient new 45 minutes Jn Mccullough DO Work Phone: [facility] Comment on above: Rectal bleeding ([place] Dx) Start: 06-29-2024 End: 06-29-2024 ambulatory JN MCCULLOUGH Not Available Start: 06-22-2024 End: 06-22-2024 Bamboo flowsheet Kwamekelly Rodríguez COMPUTER GAME TESTER Work Phone: [facility] Start: 06-22-2024 End: 06-22-2024 Bamboo flowsheet Kwamekelly Rodríguez COMPUTER GAME TESTER Work Phone: [facility] Start: 06-22-2024 End: 06-22-2024 Office outpatient visit 40 minutes Kwame Rodríguez COMPUTER GAME TESTER Work Phone: [facility] Comment on above: Bipolar 2 disorder ( CMS/HCC); Tardive dyskinesia Start: 06-22-2024 End: 06-22-2024 ambulatory KWAMEKELLY RODRÍGUEZ Not Available Start: 06-13-2024 End: 06-13-2024 Bamboo flowsheet Georgia Davey COMPUTER GAME TESTER Work Phone: [facility] Start: 06-13-2024 End: 06-13-2024 Bamboo flowsheet Georgia Davey COMPUTER GAME TESTER Work Phone: [facility] Start: 06-13-2024 End: 11-30-2024 Patient encounter status Georgia Davey COMPUTER GAME TESTER Work Phone: [facility] Start: 06-13-2024 End: 06-13-2024 Periodic preventive med est patient 40-64yrs Georgia Davey COMPUTER GAME TESTER Work Phone: [facility] Comment on above: Encounter for wellne ss examination in adult (Primary Dx); Tremor, unspecified; Overweight (BMI 25.0-29.9); Bipolar 1 disorder ([facility]); Rash Start: 06-13-2024 End: 06-13-2024 ambulatory GEORGIA DAVEY Not Available Start: 06-02-2024 End: 06-02-2024 Bamboo flowsheet Jim Lees COMPUTER GAME TESTER Work Phone: [facility] Start: 06-02-2024 End: 06-02-2024 Bamboo flowsheet Jim Lees COMPUTER GAME TESTER Work Phone: [facility] Start: 06-02-2024 End: 06-02-2024 ambulatory JIMLe LEES Not Available Start: 06-02-2024 End: 06-02-2024 Office outpatient visit 25 minutes Jimle Lees COMPUTER GAME TESTER Work Phone: [facility] Comment [...] 04-19-2024 End: 04-19-2024 Bamboo flowsheet Georgia Davey COMPUTER GAME TESTER Work Phone: [facility] Start: 04-19-2024 End: 04-19-2024 Bamboo flowsheet Georgia Davey COMPUTER GAME TESTER Work Phone: [facility] Start: 04-19-2024 End: 04-19-2024 Office outpatient visit 25 minutes Georgia Schradervidalsarah COMPUTER GAME TESTER Work Phone: [facility] Comment on [...] [facility] Start: 08-31-2023 Bamboo flowsheet Mkiey radford PT Work Phone: [facility] Start: 08-31-2023 End: 08-31-2023 ambulatory Mikey Wilson PT Work Phone: [facility] Comment on above: Internal derangement of right shoulder (Primary Dx); S/P arthroscopy of right shoulder Start: 08-28-2023 End: 08-28-2023 ambulatory Gaudencio Solomon EVENT ORGANIZER [facility] Comment on above: Internal derangement of right shoulder (Primary Dx); S/P arthroscopy of right shoulder Start: 08-26-2023 Bamboo flowsheet Gaudencio Solomon PT A [facility] Start: 08-26-2023 Bamboo flowsheet Gaudencio Solomon PT A [facility] Start: 08-26-2023 End: 08-26-2023 ambulatory Gaudencio Solomon EVENT ORGANIZER [facility] Comment on above: Internal derangement of right shoulder (Primary Dx); S/P arthroscopy of right shoulder Start: 08-24-2023 Bamboo flowsheet Desire Maza P TA [facility] Start: 08-24-2023 Bamboo flowsheet Desire Maza P TA [facility] Start: 08-24-2023 End: 08-24-2023 ambulatory Desire Maza EVENT ORGANIZER [facility] Comment on above: Internal derangement of right shoulder (Primary Dx); S/P arthroscopy of right shoulder Start: 03-16-2023 Chart abstracting Gio BLOOD Work Phone: [facility] Start: 04-25-2022 Encounter for genera l adult medical examination without abnormal findings [facility]ADALYN [facility]RAD[facility] Start: 04-23-2022 End: 04-24-2022 [facility] Start: 04-23-2022 End: 04-24-2022 Encounter for general adult medical examination without abnormal findings [facility] Start: 10-07-2021 ambulatory MADALYN DAVEY Facil ity:H1 Start: 08-30-2021 End: 08-31-2021 ambulatory MADALYN SCHRADERVIDALSarah Facility:[facility]1 Start: 08-20-2021 End: 08-21-2021 ambulatory [facility] Procedures Date Procedure Procedure Detail Performing Clinician Start: 08-22-2024 End: 08-22-2024 Psychiatric diagnostic evaluation Bipolar 2 disorder (CMS/HCC) Armen Hernández LPC Comment on above: Bipolar 2 disorder ( CMS/HCC) Plan of Treatment Date Care Activity Detail Author Start: 08-07-2025 End: 08-07-2025 Patient encounter procedure 08/07/2025 3:30 PM EST [facility] [address] [facility] [address] [place] [address] Kwame Rodríguez [facility]- [address] [facility] [address] [place] [address] [facility] Start: 06-06-2025 End: 06-06-2025 Patient encounter procedure 06/06/2025 9:00 AM EST Office Visit [facility] [address] [place] [address] Sudha Soto, PATIENT REGISTRATION SPECIALIST.STAFFING OPERATIONS MANAGER [address] [id number] follow up [facility] Comment on above: follow up Start: 04-10-2025 End: 04-10-2025 Patient encounter procedure 04/10/2025 9:40 AM EDT Office Visit [facility] [address] [place] [address] Georgia Davey, JA [address] [place] [address] [facility] Start: 03-29-2025 End: 03-29-2025 Patient encounter procedure 03/29/2025 8:00 AM EDT Office Visit [facility] [place] [facility] [address] [facility] [place] [address] Kwame Rodríguez, PMHNP-BC [address] [facility] [address] [place] [address] [facility] [place] [facility] Start: 03-20-2025 Influenza vaccination Influenza Vacc ine (#1) [facility] Start: 02-22-2025 End: 02-22-2025 Patient encounter procedure 02/22/2025 8:00 AM EDT Office Visit [facility] [place] [facility] [address] [facility] [address] [place] [address] Kwame Rodríguez, PMHNP-BC [address] [facility] [address] [place] [address] Arrived [facility] [place] [facility] Comment on above: Arrived Start: 02-20-2025 End: 02-20-2025 Patient encounter procedure 02/20/2025 8:00 AM EDT Office Visit [facility] [address] [facility] [address] [place] [address] Kwame Rodríguez, PMHNP-BC [address] [facility] [address] [place] [address] [facility] Start: 02-16-2025 End: 02-16-2025 OT/PT/Speech Visit 02/16/2025 7:45 AM EDT OT/PT/Speech Visit [facility] [address] [place] [address] [place] [address] [place] [address] 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]; Dyskinesia, tardive [G24.01] [facility] Comment on above: FND=Functional movem ent disorder [G25.9]; Dyskinesia, tardive [G24.01] Start: 02-15-2025 End: 02-15-2025 Patient encounter procedure 02/15/2025 8:00 AM EDT Office Visit [facility] [address] [place] [address] Stevo Garcia PSYD [address] [place] [address] 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 [address] [place] [address] Kwame Rodríguez, [facility] [address] [facility] [address] [place] [address] [facility] Start: 01-24-2025 End: 01-24-2025 Patient encounter procedure 01/24/2025 8:40 AM EDT Office Visit [facility] [address] [place] [address] Georgia Davey, JA [address] [place] [phone] Weight loss, unintentional (Primary Dx) [facility] Comment on above: Weight loss, uninten tional (Primary Dx) Start: 12-08-2024 End: 12-08-2024 Patient encounter procedure 12/08/2024 8:40 AM EDT [facility] [address] [place] [address] Georgia Davey, JA [address] [place] [address] [facility] Start: 11-30-2024 End: 11-30-2024 Patient encounter procedure [facility] Comment on above: Bipolar 2 disorder ( CMS/HCC); SAMRA (generalized anxiety disorder) (CMS/HCC); Tremor; Tardive dyskinesia Start: 11-09-2024 End: 11-09-2024 Patient encounter procedure [facility] Comment on above: Bipolar 2 disorder ( CMS/HCC); SAMRA (generalized anxiety disorder) (CMS/HCC); Tardive dyskinesia; Tremor Start: 11-02-2024 End: 11-02-2024 Patient encounter procedure 11/02/2024 8:00 AM EDT Office Visit [facility] [address] [facility] [address] [place] [address] Kwame Rodríguez HNP-BC [address] [facility] [address] [place] [address] [facility] Start: 10-19-2024 End: 10-19-2024 Patient encounter procedure [facility] Comment on above: Arrived Start: 10-05-2024 End: 10-05-2024 Patient encounter procedure 10/05/2024 8:00 AM EDT Office Visit [facility] [address] [facility] [address] [place] [address] Kwame Rodríguez HNP-BC [address] [facility] [address] [place] [address] [facility] Start: 09-28-2024 End: 09-28-2024 Social Work 09/28/2024 9:30 AM EDT Social Work [facility] [address] [place] [address] Armen Hernández, KIM [facility] Start: 09-14-2024 End: 09-14-2024 Patient encounter procedure 09/14/2024 10:30 AM EST Office Visit [facility] [address] [place] [address] Kwame Rodríguez, PMHNP-BC [address] [place] [address] Bipolar 2 disorder (CMS/HCC); Tardive dyskinesia; Tremor [facility] Comment on above: Bipolar 2 disorder ( CMS/HCC); Tardive dyskinesia; Tremor Start: 09-07-2024 End: 09-07-2024 Patient encounter procedure 09/07/2024 10:00 AM EST Office Visit [facility] [address] [place] [address] Kwame Rodríguez, COMPUTER GAME TESTER [address] [place] [address] [facility] Start: 08-22-2024 End: 08-22-2024 Social Work [facility] Comment on above: Arrived Start: 08-10-2024 End: 08-10-2024 Patient encounter procedure [facility] Comment on above: Bipolar 2 disorder ( CMS/HCC); Tardive dyskinesia Start: 07-25-2024 End: 07-25-2024 Social Work 07/25/2024 9:30 AM EST Social Work [facility] [address] [place] [address] Armen Hernández, KIM [facility] Start: 07-19-2024 End: 07-19-2024 Patient encounter procedure [facility] Comment on above: Bipolar 2 disorder ( [facility]); Tardive dyskinesia Start: 06-29-2024 End: 06-29-2024 Patient encounter procedure [facility] Comment on above: Arrived Start: 06-22-2024 End: 06-22-2024 Patient encounter procedure [facility] Comment on above: Tardive dyskinesia; Tremor, unspecified [...] in adult Expected: 06/13/2024 (Approximate), Expires: 06/13/2025 [facility] Comment on above: Expected: 06/13/2024 (Approximate), Expires: 06/13/2025 Start: 06-13-2024 End: 06-13-2025 Lipid 1996 panel - Serum or Plasma Lipid panel Lab Routine Encounter for wellness examination in adult Expected: 06/13/2024 (Approximate), Expires: 06/13/2025 [facility] Comment on above: Expected: 06/13/2024 (Approximate), [...] 06-13-2024 End: 06-13-2024 Patient encounter procedure [facility] Comment on above: Encounter for [facility] ss examination in adult (Primary Dx); Tremor, unspecified; Overweight (BMI 25.0-29.9); Bipolar 1 disorder ([facility]) Start: 06-02-2024 End: 06-02-2024 Patient encounter procedure 06/02/2024 8:40 AM EST Office Visit [facility] [address] [place] [phone] Jim Lees NP [address] [place] [address] [facility] [place] [facility] Start: 05-05-2024 End: 05-05-2025 MR Brain WO and W contrast IV MR brain w and wo contrast routine Imaging Routine Ataxia Expected: 05/05/2024, Expires: 05/05/2025 [facility] Work Phone: Comment on above: Expected: 05/05/2024 , Expires: 05/05/2025 Start: 05-05-2024 End: 05-05-2024 Patient encounter procedure 05/05/2024 8:00 AM EDT Office Visit [facility] [address] [place] [phone] Nadia Swift DO [address] [place], [place] [id number] Tremor, unspecified [facility] [place] [facility] Comment on above: Tremor, unspecified Start: 04-19-2024 End: 04-19-2024 Patient encounter procedure 04/19/2024 11:00 AM EDT Office Visit [facility] [address] [place] [address] Georgia Davey NP [address] [place] [phone] Arrived [facility] Comment on above: Arrived Start: 03-20-2024 Covid-19 Vaccine ( season) Covid-19 Vaccine ( season) [facility] Start: 09-11-2023 End: 09-11-2023 Patient encounter procedure 09/11/2023 10:45 AM EST Office Visit [facility] [address] [place] [address] Gio Nova, PA [address] [place] [address] [facility] Start: 09-11-2023 End: 09-11-2023 ambulatory 09/11/2023 9:30 AM EST Treatment [facility] [address] [place] [address] Gaudencio Solomon PTA [facility] Start: 09-09-2023 End: 09-09-2023 ambulatory 09/09/2023 11:00 AM EST Treatment [facility] [address] [place] [address] Mikey Wilson, PT [address] [place] [address] [facility] Start: 09-08-2023 End: 09-08-2023 Patient encounter procedure 09/08/2023 9:00 AM EST Office Visit [facility] [address] [place] [address] Georgia Davey NP [address] [place] [address] [facility] Start: 09-07-2023 End: 09-07-2023 ambulatory [facility] Start: 09-07-2023 End: 09-07-2023 Patient encounter procedure 09/07/2023 10:00 AM EST Office Visit [facility] [address] [place] [address] Goi Nova PA [address] [facility] [address] [place] [address] [facility] Start: 09-04-2023 End: 09-04-2023 ambulatory 09/04/2023 11:00 AM EST Treatment [facility] [address] [facility] [address] [place] [address] Gaudencio Solomon PTA [facility] Start: 09-02-2023 End: 09-02-2023 ambulatory [facility] Start: 08-31-2023 End: 08-31-2023 ambulatory [facility] Comment on above: Arrived Start: 08-28-2023 End: 08-28-2023 ambulatory 08/28/2023 11:00 AM EST Treatment [facility] [address] [facility] [address] [place] [address] Gaudencio Solomon PTA [facility] Start: 08-26-2023 End: 08-26-2023 ambulatory [facility] Comment on above: Internal derangement of right shoulder (Primary Dx); S/P arthroscopy of right shoulder Start: 08-24-2023 End: 08-24-2023 ambulatory 08/24/2023 10:00 AM EST Treatment [facility] [address] [facility] [address] [place] [address] Desire Maza PTA Arrived [facility] Comment on above: Arrived Start: 03-20-2023 Influenza vaccination Influenza Vacc ine (#1) [facility] Start: 2017 Lipid panel Lipid Screening [facility] Start: 2009 HPV Vaccine (1 - 3-d ose SCDM series) HPV Vaccine (1 - 3-dose SCDM series) [facility] Start: 2001 Hepatitis B Vaccine (1 of 3 - 19+ 3-dose series) Hepatitis B Vaccine (1 of 3 - 19+ 3-dose series) [facility] Start: 2001 Urine microalbumin profile DTaP,Tdap,Td Vaccine (1 - Tdap) [facility] Start: 2000 Anxiety Screening Anxiety Screening [facility] Start: 2000 Depression Screening Depression Scre keely [facility] Start: 2000 Hepatitis C screening Hepatitis C Sc jenaro [facility] Start: 2000 HIV screening HIV Screening Nguyễn vergara [facility] Payers Date Payer Category Payer Private Health Insurance [id number] 2022 Unknown [employer] [id number] 2022-Present [phone] [address] [address] [place] [address] [id number] 2022 Unknown [id number] 1982 Unknown [id number] 2.16840.1.557100.3.579. 2.593 1982 Unknown [id number] 2.16840.1.798160.3.579. 2.593 1982 Unknown [id number] 2.16840.1.460374.3.579. 2.593 1982 Unknown [id number] 2.16840.1.797658.3.579. 2.593 1982 Unknown [id number] 2.16840.1.578571.3.579. 2.1259 1982 Unknown [id number] 2.16.840.1.537589.3.579. 2.1259 1982 Unknown [id number] 2.16.840.1.331446.3.579. 2.1259 1982 Unknown [id number] 2.16840.1.899809.3.579. 2.1259 1982 Unknown [id number] 2.16.840.1.080369.3.579. 2.1259 1982 Unknown [id number] 2.16840.1.736699.3.579. 2.1258 1982 Unknown [id number] 2.16840.1.913958.3.579. 2.1258 1982 Unknown [id number] 2.16840.1.515586.3.579. 2.1258 1982 Unknown [id number] 2.16840.1.617327.3.579. 2.1258 1982 Unknown [id number] 2.840.1.468398.3.579. 2.1258 1982 Unknown [id number] 2.840.1.555084.3.579. 2.1258 1982 Unknown [id number] 2.840.1.008080.3.579. 2.1258 1982 Unknown [id number] 2.840.1.421476.3.579. 2.1258 1982 Unknown [id number] 2.840.1.823900.3.579. 2.1258 1982 Unknown [id number] 2.840.1.399298.3.579. 2.1258 1982 Unknown [id number] 2.16840.1.902838.3.579. 2.1258 1982 Unknown [id number] .840.1.274956.3.579. 2.1258 1982 Unknown [id number] .840.1.744333.3.579. 2.1258 1982 Unknown [id number] 840.1.804317.3.579. 2.1258 1982 Unknown [id number] .16840.1.017055.3.579. 2.727 1959 Self-pay [id number] 1959 Unknown [id number] Social History Date Type Detail Facility Start: 03-16-2023 End: 06-22-2024 Tobacco smoking status [facility] Never smoked tobacco [facility] Start: 08-07-2023 End: 02-03-2025 Alcohol intake Current drinker of alcohol (finding) [facility] Start: 05-27-2023 End: 09-07-2023 History of Social function [facility] Start: 05-27-2023 End: 09-07-2023 Alcohol [...] 03-16-2023 End: 02-22-2025 Alcohol intake Ex-drinker (finding) [facility] Start: 05-17-2023 End: 05-27-2023 Exposure to SARS-CoV-2 (event) Not sure [facility] Start: 11-29-2024 Do you belong to any clubs or organizations such as restorationism groups, unions, fraternal or athletic groups, or school groups? Patient declined [facility] Are you now , , , , never or living with a partner? [facility] Do you feel stress - tense, restless, nervous, or anxious, or unable to sleep at night because your mind is troubled all the time - these days [OSQ] Rather much [facility] (I/We) worried ariane er (my/our) food would run out before [...] Healthcare Start: 02-03-2025 Alcohol Comment [facility] Clinical Notes 08-31-2023 to 03-29-2025 Kwame MAIKEL Rodríguez-BC - 03/29/2025 8:20 AM BRADLEYROBERmarcelaarcelia Rodríguez, ISMAEL - 03/29/2025 8:00 AM Lolaarcelia Rodríguez, MAIKEL-BC - 02/22/2025 8:00 AM Myriam Gorman, PT - 02/16/2025 7:49 AM EDT Note Date & Type Note Facility 03-29-2025 History of Presen t illness Narrative Rx for Ingrezza [facility] documented in this encounter [facility] 03-29-2025 History of Presen t illness Narrative Images from the original note were not included. HPI: Tahira Agustin is a 44 y.o. male with a history of bipolar affective disorder, MDD, SAMRA, tremors, and tardive dyskinesia. Patient is here today for follow-up via telehealth. Location of patient: Home; located in [place] Location of provider: Office; located in [place], [place] Patient seen via: [facility]; audio and video utilized Reason for [...] of multiple sclerosis Hx of psychiatric hospitalization [facility] 1 [place] in his 20s Lumbar back [...] Mother Sandra valencia Multiple sclerosis Father Juve Agustin Vision loss Father Juve Agustin Diabetes Brother Ari Agustin COPD Other mothers side Rheum arthritis Other [...] as described above. documented in this encounter [facility] 02-22-2025 History of Presen t illness Narrative Images from the original note were not included. HPI: Tahira Agustin is a 44 y.o. male with a [...] assessment. Patient saw movement disorder specialist at [facility] on 02/03. 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 He states if he gets this, he will be doing 4 years of swing shift and schooling to get his [employer] card. He states stress has decreased at [...] of multiple sclerosis Hx of psychiatric hospitalization [facility] 1 south in his 20s Lumbar back [...] Mother Sandra valencia Multiple sclerosis Father Juve Agustin Vision loss Father Juve Agustin Diabetes Brother Ari Agustin COPD Other mothers side Rheum arthritis Other [...] will continue to follow with specialists at [facility] for additional care of his movements. Patient [...] as described above. documented in this encounter [facility] 02-16-2025 Note HNO ID: [id number] Author: MYRIAM LUIS PT Service: ? Author Type: Physical Therapist Type: Progress Notes Filed: 02/16/2025 10:07 Note Text: Episode Visit Count: 1 Therapist That Will Accept/Oversee The Plan Of Care: Myriam Luis, PT, DPT Start of Care Date: 02/16/25 Onset Date: 02/17/24 Patient Identified by Name and Date of : Yes REHABILITATION AND SPORTS THERAPY PHYSICAL THERAPY EVALUATION PLAN OF CARE: Assessment: Tahira Agustin presents with diagnosis of Functional Neurologic Disorder [...] Planned: 1 Planned Treatment Interventions: Therapeutic exercise (16875), Neuromuscular re-education (59859), Manual therapy (42599), Therapeutic activities (36907), Self-longterm management (43365), Gait Training (26690), Patient/Family/Caregiver Education, Body Mechanics Training, Functional training, [...] with patient no issues were identified 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 [facility] 02-16-2025 History of Presen t illness Narrative Episode Visit Count: 1 Therapist That Will Accept/Oversee The Plan Of Care: Myriam Luis, PT, DPT Start of Care Date: 02/16/25 Onset Date: 02/17/24 Patient Identified by Name and Date of : Yes REHABILITATION AND SPORTS THERAPY PHYSICAL THERAPY EVALUATION PLAN OF CARE: Assessment: Tahira Agustin presents with diagnosis of Functional Neurologic Disorder [...] Planned: 1 Planned Treatment Interventions: Therapeutic exercise (84276), Neuromuscular re-education (62798), Manual therapy (60913), Therapeutic activities (60922), Self-longterm management (72265), Gait Training (12424), Patient/Family/Caregiver Education, Body Mechanics Training, Functional training, [...] with patient no issues were identified 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, 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, 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 [...] UE Strength: Grossly 5/5 Hand Strength R Behavioral Specialist Position 1 (lbs): 90 lbs R Behavioral Specialist Position 2 (lbs): 90 lbs L Behavioral Specialist Position 1 (lbs): 105 lbs L Behavioral Specialist Position 2 (lbs): 110 lbs LE Strength R LE Strength: Grossly 5/5 L LE Strength: Grossly 5/5 Movement Description Movement Impairment(s): Tremor Tremor Comments: Mostly in L hand Gait Gait Observation: WF Functional Performance Test Results 9 Hole Peg [...] Time (minutes): 40 Session Start Time : 0750 Session Stop Time : 0830 Myriam Luis PT, DPT documented in this encounter [facility] 02-15-2025 Note HNO ID: [id number] Author: STEVO GARCIA PSYD Service: ? Author Type: Physician Type: Progress Notes Filed: 03/06/2025 22:38 Note Text: [facility] Clinical [facility] Psychology Evaluation Time of Service: 8:05 [...] were discussed. Identification and Presenting Problem: Mr. Agustin is a 44 year old male who was referred by Dr. 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 He presents with a history of involuntary movement symptoms. Symptom onset: 1 year Most bothersome symptoms: tremor Aggravating factors: stress Alleviating factors: distraction Social History: Mr. Agustin was raised in [place]. He has one half brother who is [...] abuse on his own part. denied Mr. Agustin denies any history of physical or sexual abuse in childhood. However, he notes the loss of his grandparents was significantly distressing to him. The patient works full-time however endorses a history of bullying in the workplace for the past 8 years. The patient does not receive any disability payments, nor has he applied for any. Mr. Agustin has been to his for 7 years. [...] current facility-administered medications for this visit. Mr. Agustin reports significant depressive symptoms in the past [...] drug use: None Current marijuana use: Mr. Agustin denied marijuana use within the past month. Current use of prescribed opioids, sedatives AND benzodiazepines: Mr. Agustin does not use opioids or sedative/hypnotics. Alcohol use: Mr. Agustin has consumed no alcoholic beverages in the [...] become harmful to you? No. Impressions Mr. Agustin is a 44 year old male who [...] recommended that the (more content not included)... [facility] 02-15-2025 History of Presen t illness Narrative [facility] Clinical [facility] Psychology Evaluation Time of Service: 8:05 [...] were discussed. Identification and Presenting Problem: Mr. Agustin is a 44 year old male who was referred by Dr. 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 He presents with a history of involuntary movement symptoms. Symptom onset: 1 year Most bothersome symptoms: tremor Aggravating factors: stress Alleviating factors: distraction Social History: Mr. Agustin was raised in [place]. He has one half brother who is [...] abuse on his own part. denied Mr. Agustin denies any history of physical or sexual abuse in childhood. However, he notes the loss of his grandparents was significantly distressing to him. The patient works full-time however endorses a history of bullying in the workplace for the past 8 years. The patient does not receive any disability payments, nor has he applied for any. Mr. Agustin has been to his for 7 years. [...] current facility-administered medications for this visit. Mr. Agustin reports significant depressive symptoms in the past [...] drug use: None Current marijuana use: Mr. Agustin denied marijuana use within the past month. Current use of prescribed opioids, sedatives & benzodiazepines: Mr. Agustin does not use opioids or sedative/hypnotics. Alcohol use: Mr. Agustin has consumed no alcoholic beverages in the [...] become harmful to you? No. Impressions Mr. Agustin is a 44 year old male who [...] Stevo Garcia Psy.D. Staff, [facility] documented in this encounter [facility] 02-03-2025 Telephone encounter Note FMD welcome message emailed to patient. [facility] 02-03-2025 Miscellaneous Notes FMD welcome message emailed to patient. documented in this encounter [facility] 02-03-2025 Instructions Olena Gomez MD - 02/03/2025 [...] If urgent issues arise, contact us via [place] for guidance or to schedule an earlier [...] these. Physical, Occupational, and/or Speech Therapy Call: [phone] or schedule through a ticket in [place]. Psychology Therapy Call: [phone], ask to be scheduled with Dr. Shirin Morgan, Dr. Elizabeth Barrera, or Dr. Stevo Garcia. Virtual Shared Medical Appointment for FMD Education Call: [phone] or schedule through a ticket in [place] Follow-up with Cheyenne Ortiz PA-C, who will help support you through your care. Call: [phone] or schedule through a ticket in [place]. How can I learn more about FND? www.neurosymptoms.org www.fndhope.org documented in this encounter [facility] 02-03-2025 History of Presen t illness Narrative [facility] - NEW PATIENT EVALUATION Primary Movement Disorders Neurologist: Willow Raoms MD Primary Movement Disorders JAVAN: I had the pleasure of evaluating Mr. Agustin in our clinic today. He is a 44 year old left-handed male who presents for evaluation of tardive dyskinesia since >10 years . Subjective HISTORY OF PRESENT ILLNESS: Initial HPI Tahira Agustin is a 44-year-old male with a history of bipolar affective disorder, MDD, SAMRA, tremors, and tardive dyskinsia presenting with concerns about tardive dyskinesia and tremor. He is from [facility] and follows with a local psychiatry team. Chart Review: Per records he is currently on fluoxetine, lamotrigine, propranolol, and valbenazine. He saw his psychiatry COMPUTER GAME TESTER on 01/25/2025 where he asked for a [...] note at this visit he observed abnormal nzxxtj-bq-ugdc testing indicating ataxia for which MRI brain [...] Plantar: downgoing Left Plantar: downgoing Coordination Right: Cyirrw-wh-ptvv normal. Rapid alternating movement normal. Zbag-xg-rhaw normal.Left: Ceprox-ud-tmcj normal. Rapid alternating movement normal. Xbww-di-atgb normal. Mild tremulousness in BL hands (L>R) with finger to nose but not consistently present.. Gait Casual gait is normal including stance, stride, and arm swing.Normal toe walking. Normal heel walking. Normal tandem gait. Romberg is absent. Able to rise from chair without using arms. Pertinent Studies MRI Brain 05/18/2024: Unremarkable brain MRI performed without and with contrast. Assessment and Plan: Assessment Mr. Agustin is a left-handed 44 year old year [...] to call with any questions. Sincerely, Willow Ramos MD Associate Staff [facility] Olena Gomez MD MS Movement Disorder Fellow, PGY-6 [facility] documented in this encounter [facility] 02-03-2025 Note HNO ID: [id number] Author: WILLOW RAMOS MD Service: ? Author Type: Physician Type: Progress Notes Filed: 02/06/2025 12:29 Note Text: [facility] - NEW PATIENT EVALUATION Primary Movement Disorders Neurologist: Willow Ramos MD Primary Movement Disorders JAVAN: I had the pleasure of evaluating Mr. Agustin in our clinic today. He is a 44 year old left-handed male who presents for evaluation of tardive dyskinesia since >10 years . Subjective HISTORY OF PRESENT ILLNESS: Initial HPI Tahira Agustin is a 44-year-old male with a history of bipolar affective disorder, MDD, SAMRA, tremors, and tardive dyskinsia presenting with concerns about tardive dyskinesia and tremor. He is from [facility] and follows with a local psychiatry team. Chart Review: Per records he is currently on fluoxetine, lamotrigine, propranolol, and valbenazine. He saw his psychiatry COMPUTER GAME TESTER on 01/25/2025 where he asked for a [...] note at this visit he observed abnormal oegqha-lc-fewu testing indicating ataxia for which MRI brain [...] Genitourinary: (+) n (more content not included)... [facility] 01-25-2025 History of Presen t illness Narrative Images from the original note were not included. HPI: Tahira Agustin is a 44 y.o. male with a history of bipolar affective disorder, MDD, SAMRA, tremors, and tardive dyskinesia. Patient is here today for follow-up. Patient is accompanied by his , [place]. Patient was started on Fluoxetine at his last visit on 11/30/24. He states that he feels his mood has improved since last visit. He recently went on vacation with his family to [place], [place]. He states he was able to drive down there and back without any issues or exacerbation of his tremors. He is seeing movement disorder specialist at [facility] on February 03. He is wanting to [...] of multiple sclerosis Hx of psychiatric hospitalization [facility] 1 [place] in his 20s Lumbar back [...] Mother Sandra valencia Multiple sclerosis Father Juve Agustin Vision loss Father Juve Agustin Diabetes Brother Ari Agustin COPD Other mothers side Rheum arthritis Other [...] NP as Referring Physician (Family Medicine) [facility] as Nurse Practitioner (Behavioral Health) Nadia Swift [...] addition of Prozac. He is meeting with [facility] movement disorder specialist on February 03. He [...] as described above. documented in this encounter [facility] 01-24-2025 History of Presen t illness Narrative Associated Problem(s): Mixed bipolar affective disorder, mild (HCC) Continue with psych Associated Problem(s): Tardive dyskinesia Working w psych Also has movement disorder Images from the original note were not included. Tahira Agustin is a 44 y.o. male presents with [...] has an appt with movement specialist at [facility] on 02/03/25 SUBJECTIVE: MEDICATIONS: Current Outpatient [...] of multiple sclerosis Hx of psychiatric hospitalization [facility] 1 south in his 20s Lumbar back [...] since no gallbladder documented in this encounter [facility] 11-30-2024 History of Presen t illness Narrative Images from the original note were not included. HPI: Tahira Agustin is a 43 y.o. male with a [...] appointment with a movement disorder specialist at [facility] on February 03. SUBJECTIVE: PAST MEDICAL HISTORY: Past Medical History: Diagnosis Date Arthralgia Asymptomatic microscopic hematuria Bipolar disorder Bursitis of shoulder, right Cyst of tendon sheath Dyspnea 09/08/2023 Family history of multiple sclerosis Hx of psychiatric hospitalization [facility] 1 south in his 20s Lumbar back [...] Mother Sandra valencia Multiple sclerosis Father Juve Agustin Vision loss Father Juve Agustin Diabetes Brother Ari Agustin COPD Other mothers side Rheum arthritis Other [...] as Neurologist (Neurology) Armen Hernández LPC as Director Of Sustainable Design (Behavioral Health) PSYCHIATRIC REVIEW OF SYMPTOMS AND [...] evaluation so they will keep appointment with [facility] that is scheduled in January. We discussed [...] mouth Daily SAMRA (generalized anxiety disorder) (CMS/HCC) - FLUoxetine (PROzac) 20 MG capsule; Take [...] prior episode, unspecified depression episode severity (CMS/HCC) Treatment Plan/Recommendations: - Continue Ingrezza 60 mg [...] as described above. documented in this encounter [facility] 11-09-2024 History of Presen t illness Narrative Images from the original note were not included. HPI: Tahira Agustin is a 43 y.o. male with a [...] of multiple sclerosis Hx of psychiatric hospitalization [facility] in his 20s Lumbar back pain Tardive [...] Mother Sandra valencia Multiple sclerosis Father Juve Agustin Vision loss Father Juve Agustin Diabetes Brother Ari Agustin COPD Other mothers side Rheum arthritis Other [...] as Neurologist (Neurology) Armen Hernández LPC as Director Of Sustainable Design (Behavioral Health) PSYCHIATRIC REVIEW OF SYMPTOMS AND [...] by mouth Daily SAMRA (generalized anxiety disorder) (CMS/[facility]) Tardive dyskinesia Tremor - propranolol LA (Inderal [...] as described above. documented in this encounter [facility] 10-19-2024 History of Presen t illness Narrative Images from the original note were not included. HPI: Tahira Agustin is a 43 y.o. male with a [...] of multiple sclerosis Hx of psychiatric hospitalization [facility] 1 south in his 20s Lumbar back [...] Mother Sandra valencia Multiple sclerosis Father Juve Agustin Vision loss Father Juve Agustin Diabetes Brother Ari Agustin COPD Other mothers side Rheum arthritis Other [...] as Neurologist (Neurology) Armen Hernández LPC as Director Of Sustainable Design (Behavioral Health) PSYCHIATRIC REVIEW OF SYMPTOMS AND [...] mg by mouth Daily Bipolar 2 disorder ([facility]) - lamoTRIgine (LaMICtal) 25 MG tablet; Take 1 tablet (25 mg) by mouth Daily for 14 days, THEN 2 tablets (50 mg) Daily for 14 days. SAMRA (generalized anxiety disorder) ([facility]) Treatment Plan/Recommendations: - Increase Ingrezza [...] as described above. documented in this encounter [facility] 10-17-2024 Telephone encounter Note Spoke to patient. He stopped Caplyta on Thursday. Reports that side effects have improved a little but still having some. He is agreeable to come in Thursday to follow-up. Informed him to stay off Caplyta until we see him. Patient verbalized understanding. [facility] 10-17-2024 Miscellaneous Notes Spoke to patient. He [...] still experiencing symptoms. documented in this encounter [facility] 10-17-2024 Telephone encounter Note Patient called in stating that after taking his higher dose of Caplyta he started experiencing excessive blinking, body twitches, and high anxiety. Patient stated this started right after taking his increased dose and his symptoms were really bad on 10/13. Patient stated he stopped the medication on 10/14 and is still experiencing symptoms. [facility] 09-14-2024 History of Presen t illness Narrative Images from the original note were not included. HPI: Tahira Agustin is a 43 y.o. male with a [...] has problems with sleeping. He is seeing Armen for counseling. SUBJECTIVE: PAST MEDICAL HISTORY: Past Medical History: Diagnosis Date Arthralgia Asymptomatic microscopic hematuria Bipolar disorder (CMS/HCC) Bursitis of shoulder, right Cyst of tendon sheath Dyspnea 09/08/2023 Family history of multiple sclerosis Hx of psychiatric hospitalization [facility] 1 south in his 20s Lumbar back [...] Mother Sandra valencia Multiple sclerosis Father Juve Agustin Vision loss Father Juve Agustin Diabetes Brother Ari Agustin COPD Other mothers side Rheum arthritis Other mothers side Fibromyalgia Other mothers side Arthritis Maternal Grandmother Brinda Oro Hearing loss Maternal Grandmother Brinda Preethi SOCIAL HISTORY: Social History Tobacco Use Smoking status: Never Smokeless tobacco: Never Vaping Use Vaping status: Never Used Substance Use Topics Alcohol use: Not Currently Comment: caffiene- 3 sweet tea and occasion pop Drug use: Never Patient Care Team: Montrell Serrano MD as PCP - General (Family Medicine) Georgia Davey NP as Referring Physician (Family Medicine) MAIKEL Worley- as Nurse Practitioner (Behavioral Health) Nadia Swift DO as Neurologist (Neurology) Armen Hernández LPC as Director Of Sustainable Design (Behavioral Health) PSYCHIATRIC REVIEW OF SYMPTOMS AND [...] this visit: Bipolar 2 disorder (CMS/HCC) - Lumateperone Tosylate (Caplyta) 10.5 MG capsule; [...] as described above. documented in this encounter [facility] 08-10-2024 History of Presen t illness Narrative Images from the original note were not included. Tahira Agustin is a 43 y.o. male with a [...] of multiple sclerosis Hx of psychiatric hospitalization [facility] 1 [place] in his 20s Lumbar back [...] Mother Sandra valencia Multiple sclerosis Father Juve Agustin Vision loss Father Juve Agustin Diabetes Brother Ari Agustin COPD Other mothers side Rheum arthritis Other [...] NP as Referring Physician (Family Medicine) Kwame Rodríguez NP as Nurse Practitioner (Behavioral Health) Nadia [...] to age Memory/Concentration Short term intact and termite treater intact Insight/Judgement Good OBJECTIVE: Visit Vitals BP [...] orders for this visit: Bipolar 2 disorder ([facility]) - ARIPiprazole (Abilify) 10 MG [...] as described above. documented in this encounter [facility] 07-19-2024 History of Presen t illness Narrative Images from the original note were not included. Tahira Agustin is a 43 y.o. male with a [...] of multiple sclerosis Hx of psychiatric hospitalization [address] in his 20s Lumbar back pain [...] Mother Sandra valencia Multiple sclerosis Father Juve Agustin Vision loss Father Juve Agustin Diabetes Brother Ari Agustin COPD Other mothers side Rheum arthritis Other [...] NP as Referring Physician (Family Medicine) Kwame Rodríguez NP as Nurse Practitioner (Behavioral Health) Nadia [...] to age Memory/Concentration Short term intact and fpc intact Insight/Judgement Fair OBJECTIVE: Visit Vitals BP [...] orders for this visit: Bipolar 2 disorder ([facility]) Tardive dyskinesia Treatment Plan/Recommendations: - [...] as described above. documented in this encounter [facility] 06-29-2024 History of Presen t illness Narrative General Surgery H&P Tahira Agustin 1980 Tahira Agustin is a 43 y.o. male presents for [...] of multiple sclerosis Hx of psychiatric hospitalization [facility] his 20s Lumbar back pain Tardive [...] Mother Sandra valencia Multiple sclerosis Father Juve Agustin Vision loss Father Juve Agustin Diabetes Brother Ari Agustin COPD Other mothers side Rheum arthritis Other mothers side Fibromyalgia Other mothers side Arthritis Maternal Grandmother Brinda Oro Hearing loss Maternal Grandmother Brinda Preethi Allergies [...] as needed for discomfort/pain Thank you, Kelly Mccullough DO documented in this encounter [facility] 06-22-2024 History of Presen t illness Narrative Images from the original note were not included. Tahira Agustin is a 43 y.o. male with a history of bipolar affective disorder who presents as a new patient for psychiatric evaluation and medication management. HPI: Reason for visit: Tahira Agustin is here today to discuss possible medication [...] He states he is transferring care to [facility] [facility] and [...] done therapy. Reports seeing Deana Zaman at [facility] prior to her leaving. Reports doing his [...] States he was hospitalized in 20s at [facility] and that is when he received his [...] grandmother earlier this year. Education: Graduated from [employer]. Reports being bullied his entire life. States he also went to [employer] and did some college classes after high [...] of multiple sclerosis Hx of psychiatric hospitalization [facility] [place] in his 20s Lumbar back [...] Living situation: Lives with . Reports his izexcd-ob-sal and niece temporarily moved in with them recently Occupation: Has been working at [employer] for the past 11-12 years. Has been [...] to age Memory/Concentration Short term intact and termite treater intact Insight/Judgement Good OBJECTIVE: Visit Vitals BP [...] orders for this visit: Bipolar 2 disorder ([facility]) - ARIPiprazole (Abilify) 10 MG [...] the local ER or call Suicide Hotline (901) for any psychosis, suicidal or homicidal ideation, [...] as described above. documented in this encounter [facility] 06-13-2024 History of Presen t illness Narrative Associated Problem(s): Rash No improvement in rash with steroid (Rx strength) Will trial lotrisone cream If not better contact office Images from the original note were not included. Tahira Agustin is a 43 y.o. male presents [...] Items Addressed This Visit Bipolar 1 disorder ([facility]) Will have pt continue to follow with [...] notes as well documented in this encounter [facility] 06-13-2024 Instructions Georgia Davey NP - 06/13/2024 9:00 AM EST Trial lotrisone cream twice a day for 4 weeks, if not better call office documented in this encounter [facility] 06-02-2024 History of Presen t illness Narrative Images from the original note were not included. Chief Complaint Patient presents with Tardive Dyskinesia Tremors Subjective Tahira Agustin, 43 y.o., male Patient is here with for follow up to hand tremor and history of tardive dyskinesia. Admits MRI of the brain since last seen. He states that he has been following with psychiatry but states he would like to follow more locally. He has been traveling from [place] to [place]. He states that his Abilify was reduced [...] , wrist extensors , wrist flexor , indian blanket weaver strength 5/5. LUE Strength deltoid , biceps , triceps , wrist extensors , wrist flexor , indian blanket weaver strength 5/5. RLE Strength illopsoas, quadriceps, tibialis [...] the brain with and without contrast at [facility] on 05/18/24: Unremarkable brain MRI performed [...] normal. PLAN: - Referral to psychiatry at [facility] in [place] per patient request - We have discussed [...] return instructions documented in this encounter [facility] 05-05-2024 History of Presen t illness Narrative Images from the original note were not included. Chief Complaint Patient presents with Tremors Subjective Tahira Agustin, 43 y.o., male Patient is here with tremors. 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 LUE Strength deltoid , biceps , triceps , wrist extensors , wrist flexor , indian blanket weaver strength 5/5. RLE Strength illopsoas, quadriceps, tibialis [...] my impression that the patient has abnormal [id number] testing indicating ataxia. The patient is 43 [...] return instructions documented in this encounter [facility] 04-19-2024 History of Presen t illness Narrative [...] the original note were not included. Tahira Agustin is a 43 y.o. 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 Good compliance with use of sling Functional Limitations: 28/80 points, 65% impairment Long-Term Goals: AA/AROM R shoulder to 160 flexion [...] Physician Signature: Date: documented in this encounter [facility] 08-31-2023 History of Presen t illness Narrative [...] right was stronger than left. 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 Good compliance with use of sling Functional Limitations: 28/80 points, 65% impairment Court Worker Goals: AA/AROM R shoulder to 160 flexion [...] Physician Signature: Date: documented in this encounter [facility] Evaluation note Diagnosis Internal derangement of [...] unspecified type- Primary Wheezing Bipolar 1 disorder ([facility]) Overweight (BMI 25.0-29.9) Overweight Dyspnea, unspecified type- Primary Overweight (BMI 25.0-29.9) Overweight Bipolar 1 disorder ([facility]) Dyspnea, unspecified type- Primary Overweight (BMI 25.0-29.9) Overweight Tremor, unspecified- Primary Overweight (BMI 25.0-29.9) Overweight Encounter for wellness examination in adult- Primary Tremor, unspecified Overweight (BMI 25.0-29.9) Overweight Bipolar 1 disorder ([facility]) Rash Rash and other nonspecific skin eruption documented [facility] Diagnosis Dyspnea, unspecified type- Primary Wheezing Bipolar 1 disorder ([facility]) Overweight (BMI 25.0-29.9) Overweight Dyspnea, unspecified type- Primary Overweight (BMI 25.0-29.9) Overweight Bipolar 1 disorder ([facility]) Dyspnea, unspecified type- Primary Overweight (BMI 25.0-29.9) Overweight Tremor, unspecified- Primary Overweight (BMI 25.0-29.9) Overweight Encounter for wellness examination in adult- Primary Tremor, unspecified Overweight (BMI 25.0-29.9) Overweight Bipolar 1 disorder ([facility]) Rash Rash and other nonspecific skin eruption Rectal bleeding Hemorrhage of rectum and anus Bipolar 2 disorder ([facility]) Other bipolar disorders Tardive dyskinesia Subacute dyskinesia due to drugs [facility]* Diagnosis Dyspnea, unspecified type- Primary Wheezing Bipolar 1 disorder ([facility]) Overweight (BMI 25.0-29.9) Overweight Dyspnea, unspecified type- Primary Overweight (BMI 25.0-29.9) Overweight Bipolar 1 disorder ([facility]) Dyspnea, unspecified type- Primary Overweight (BMI 25.0-29.9) Overweight Tremor, unspecified- Primary Overweight (BMI 25.0-29.9) Overweight Encounter for wellness examination in adult- Primary Tremor, unspecified Overweight (BMI 25.0-29.9) Overweight Bipolar 1 disorder ([facility]) Rash Rash and other nonspecific skin eruption Rectal bleeding Hemorrhage of rectum and anus Rectal bleeding- Primary Hemorrhage of rectum and anus documented [facility]* Diagnosis Dyspnea, unspecified type- Primary Wheezing Bipolar 1 disorder ([facility]) Overweight (BMI 25.0-29.9) Overweight Dyspnea, unspecified type- Primary Overweight (BMI 25.0-29.9) Overweight Bipolar 1 disorder ([facility]) Dyspnea, unspecified type- Primary Overweight (BMI 25.0-29.9) Overweight Tremor, unspecified- Primary Overweight (BMI 25.0-29.9) Overweight Encounter for wellness examination in adult- Primary Tremor, unspecified Overweight (BMI 25.0-29.9) Overweight Bipolar 1 disorder ([facility]) Rash Rash and other nonspecific skin eruption Rectal bleeding Hemorrhage of rectum and anus Bipolar 2 disorder ([facility]) Other bipolar disorders Tardive dyskinesia Subacute dyskinesia due to drugs [facility]* Diagnosis Dyspnea, unspecified type- Primary Wheezing Bipolar 1 disorder ([facility]) Overweight (BMI 25.0-29.9) Overweight Dyspnea, unspecified type- Primary Overweight (BMI 25.0-29.9) Overweight Bipolar 1 disorder ([facility]) Dyspnea, unspecified type- Primary Overweight (BMI 25.0-29.9) Overweight Tremor, unspecified- Primary Overweight (BMI 25.0-29.9) Overweight Encounter for wellness examination in adult- Primary Tremor, unspecified Overweight (BMI 25.0-29.9) Overweight Bipolar 1 disorder ([facility]) Rash Rash and other nonspecific skin eruption Rectal bleeding Hemorrhage of rectum and anus Bipolar 2 disorder ([facility]) Other bipolar disorders Tardive dyskinesia Subacute dyskinesia due to drugs [facility]* Diagnosis Dyspnea, unspecified type- Primary Wheezing Bipolar 1 disorder ([facility]) Overweight (BMI 25.0-29.9) Overweight Dyspnea, unspecified type- Primary Overweight (BMI 25.0-29.9) Overweight Bipolar 1 disorder ([facility]) Dyspnea, unspecified type- Primary Overweight (BMI 25.0-29.9) Overweight Tremor, unspecified- Primary Overweight (BMI 25.0-29.9) Overweight Encounter for wellness examination in adult- Primary Tremor, unspecified Overweight (BMI 25.0-29.9) Overweight Bipolar 1 disorder ([facility]) Rash Rash and other nonspecific skin eruption Rectal bleeding Hemorrhage of rectum and anus Bipolar 2 disorder ([facility]) Other bipolar disorders [facility]* Diagnosis Dyspnea, unspecified type- Primary Wheezing Bipolar 1 disorder ([facility]) Overweight (BMI 25.0-29.9) Overweight Dyspnea, unspecified type- Primary Overweight (BMI 25.0-29.9) Overweight Bipolar 1 disorder ([facility]) Dyspnea, unspecified type- Primary Overweight (BMI 25.0-29.9) Overweight Tremor, unspecified- Primary Overweight (BMI 25.0-29.9) Overweight Encounter for wellness examination in adult- Primary Tremor, unspecified Overweight (BMI 25.0-29.9) Overweight Bipolar 1 disorder ([facility]) Rash Rash and other nonspecific skin eruption Rectal bleeding Hemorrhage of rectum and anus Bipolar 2 disorder ([facility]) Other bipolar disorders Tardive dyskinesia Subacute dyskinesia due to drugs Tremor Abnormal involuntary movements [facility]* Diagnosis Dyspnea, unspecified type- Primary Wheezing Bipolar 1 disorder ([facility]) Overweight (BMI 25.0-29.9) Overweight Dyspnea, unspecified type- Primary Overweight (BMI 25.0-29.9) Overweight Bipolar 1 disorder ([facility]) Dyspnea, unspecified type- Primary Overweight (BMI 25.0-29.9) Overweight Tremor, unspecified- Primary Overweight (BMI 25.0-29.9) Overweight Encounter for wellness examination in adult- Primary Tremor, unspecified Overweight (BMI 25.0-29.9) Overweight Bipolar 1 disorder ([facility]) Rash Rash and other nonspecific skin eruption Rectal bleeding Hemorrhage of rectum and anus Tardive dyskinesia Subacute dyskinesia due to drugs Bipolar 2 disorder ([facility] Other bipolar disorders SAMRA (generalized anxiety disorder) ([facility]) Generalized anxiety disorder documented in [facility] encounter [facility]* Diagnosis Dyspnea, unspecified type- Primary Wheezing Bipolar 1 disorder ([facility]) Overweight (BMI 25.0-29.9) Overweight Dyspnea, unspecified type- Primary Overweight (BMI 25.0-29.9) Overweight Bipolar 1 disorder ([facility]) Dyspnea, unspecified type- Primary Overweight (BMI 25.0-29.9) Overweight Tremor, unspecified- Primary Overweight (BMI 25.0-29.9) Overweight Encounter for wellness examination in adult- Primary Tremor, unspecified Overweight (BMI 25.0-29.9) Overweight Bipolar 1 disorder ([facility]) Rash Rash and other nonspecific skin eruption Rectal bleeding Hemorrhage of rectum and anus Bipolar 2 disorder ([facility]) Other bipolar disorders SAMRA (generalized anxiety disorder) ([facility]) Generalized anxiety disorder Tardive dyskinesia Subacute dyskinesia due to drugs Tremor Abnormal involuntary movements [facility]* Diagnosis Tremor, unspecified- Primary Overweight (BMI 25.0-29.9) Overweight Encounter for wellness examination in adult- Primary Tremor, unspecified Overweight (BMI 25.0-29.9) Overweight Bipolar 1 disorder ([facility]) Rash Rash and other nonspecific skin eruption Rectal bleeding Hemorrhage of rectum and anus Bipolar 2 disorder ([facility]) Other bipolar disorders SAMRA (generalized anxiety disorder) ([facility]) Generalized anxiety disorder Tremor Abnormal involuntary movements Tardive dyskinesia Subacute dyskinesia due to drugs Current episode of major depressive disorder without prior episode, unspecified depression episode severity ([facility]) documented in this [facility] [...] to drugs [facility] 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 Dyskinesia, tardive Subacute dyskinesia due to drugs 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 Parkinsonism [facility] 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 Dyskinesia, tardive Subacute dyskinesia due to drugs [facility] Diagnosis Tremor, unspecified- Primary Overweight (BMI [...] Other bipolar disorders documented in this encounter [facility]* Diagnosis Adjustment disorder with mixed anxiety and depressed mood- Primary 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 Dyskinesia, tardive Subacute dyskinesia due to drugs [facility] Tremor, unspecified- Primary Overweight (BMI [...] due to drugs documented in this encounter [facility]* Diagnosis Tremor, unspecified- Primary Overweight [...] Review Specialty Diagnoses / Procedures Referred By Contac t Referred To Contact Neurology Diagnoses Tremor, unspecified Procedures VA OFFICE/OUTPATIENT NEW HIGH MDM 60 MINUTES Georgia Davey NP [address] [place] [address] Estefania Sherman NP [address] [place] [address] Referral ID Status Reason Start Date Expiration Date Visits Requested Visits Authorized [id number] Pending Review Specialty Services Required 04/19/2024 10/16/2024 1 1 [facility] N[facility]* Consultation (Routine) - Authorized Specialty Diagnoses / Procedures Referred By Contac t Referred To Contact Physical Therapy Diagnoses S/P arthroscopy of right shoulder Procedures [facility] OFFICE/OUTPATIENT NEW HIGH MDM 60 MINUTES Gio Nova PA [address] [place] [address] Norah Cardenas, PT [address] [place] [address] Referral ID Status Reason Start Date Expiration Date Visits Requested Visits Authorized [id number] Authorized Consult and Treat 08/14/2023 02/10/2024 20 [...] Records FoundNo Status Records FoundNo Status Records FoundNo Status Records Found INFORMATION SOURCE (unrecogn ized section and content) DATE CREATED AUTHOR 04/26/2022 [facility] DATE CREATED AUTHOR AUTHOR'S ORGANIZ ATION 03/08/2025 [facility] DATE CREATED AUTHOR AUTHOR'S ORGANIZ ATION 03/31/2025 [facility] DATE CREATED AUTHOR AUTHOR'S ORGANIZ ATION 04/22/2025 Reinier Pettit [facility] Care Teams (unrecognized sec tion and content) Medicaid Collection Specialist Relationship Specialty Start Date End Date Montrell Serrano MD [address] [place] [address] PCP - General Family Medicine 08/10/23 Georgia Davey NP [address] [place] [address] Nurse Practitioner Family Medicine 07/20/22 Georgia Davey NP [address] [place] [address] Referring Physician Family Medicine 05/04/23 Medicaid Collection Specialist Relationship Specialty Start Date End Date Montrell Serrano MD [address] [place] [phone] PCP - General Family Medicine 08/10/23 Georgia Davey NP [address] [place] [address] Nurse Practitioner Family Medicine 07/20/22 Georgia Davey NP [address] [place] [address] Referring Physician Family Medicine 05/04/23 Medicaid Collection Specialist Relationship Specialty Start Date End Date Montrell Serrano MD [address] [place] [address] PCP - General Family Medicine 08/10/23 Georgia Davey NP [address] [place] [address] Nurse Practitioner Family Medicine 07/20/22 Georgia Davey NP [address] [place] [address] Referring Physician Family Medicine 05/04/23 Medicaid Collection Specialist Relationship Specialty Start Date End Date Montrell Serrano MD [address] [place] [address] PCP - General Family Medicine 08/10/23 Georgia Davey NP [address] [place] [address] Nurse Practitioner Family Medicine 07/20/22 Georgia Davey NP [address] [place] [address] Referring Physician Family Medicine 05/04/23 Medicaid Collection Specialist Relationship Specialty Start Date End Date Montrell Serrano MD [address] [place] [address] PCP - General Family Medicine 08/10/23 Georgia Davey NP [address] [place] [address] Nurse Practitioner Family Medicine 07/20/22 Georgia Davey NP [address] [place] [address] Referring Physician Family Medicine 05/04/23 Medicaid Collection Specialist Relationship Specialty Start Date End Date Montrell Serrano MD [address] [place] [phone] PCP - General Family Medicine 05/04/23 08/09/23 Montrell Serrano MD [address] [place] [address] PCP - General Family Medicine 08/10/23 Georgia Davey NP [address] [place] [address] Nurse Practitioner Family Medicine 07/20/22 Georgia Davey NP [address] [place] [address] Referring Physician Family Medicine 05/04/23 Medicaid Collection Specialist Relationship Specialty Start Date End Date Montrell Serrano MD [address] [place] [address] PCP - General Family Medicine 08/10/23 Georgia Davey NP [address] [place] [address] Nurse Practitioner Family Medicine 07/20/22 Georgia Davey NP [address] [place] [address] Referring Physician Family Medicine 05/04/23 Medicaid Collection Specialist Relationship Specialty Start Date End Date Montrell Serrano MD [address] [place] [address] PCP - General Family Medicine 08/10/23 Georgia Davey NP [address] [place] [address] Nurse Practitioner Family Medicine 07/20/22 Georgia Davey NP [address] [place] [address] Referring Physician Family Medicine 05/04/23 Medicaid Collection Specialist Relationship Specialty Start Date End Date Montrell Serrano MD [address] [place] [address] PCP - General Family Medicine 08/10/23 Georgia Davey NP [address] [place] [address] Nurse Practitioner Family Medicine 07/20/22 Georgia Davey NP [address] [place] [address] Referring Physician Family Medicine 05/04/23 Medicaid Collection Specialist Relationship Specialty Start Date End Date Montrell Serrano MD [address] [place] [address] PCP - General Family Medicine 08/10/23 Georgia Davey NP [address] [place] [address] Nurse Practitioner Family Medicine 07/20/22 Georgia Davey NP [address] [place] [address] Referring Physician Family Medicine 05/04/23 Medicaid Collection Specialist Relationship Specialty Start Date End Date Montrell Serrano MD [address] [place] [address] PCP - General Family Medicine 08/10/23 Georgia Davey NP [address] [place] [address] Nurse Practitioner Family Medicine 07/20/22 Georgia Davey NP [address] [place] [address] Referring Physician Family Medicine 05/04/23 Medicaid Collection Specialist Relationship Specialty Start Date End Date Montrell Serrano MD [address] [place] [address] PCP - General Family Medicine 08/10/23 Georgia Davey NP [address] [place] [address] Nurse Practitioner Family Medicine 07/20/22 Georgia Davey NP [address] [place] [address] Referring Physician Family Medicine 05/04/23 Medicaid Collection Specialist Relationship Specialty Start Date End Date Montrell Serrano MD [address] [place] [address] PCP - General Family Medicine 08/10/23 Georgia Davey NP [address] [place] [address] Nurse Practitioner Family Medicine 07/20/22 eGorgia Davey NP [address] [place] [address] Referring Physician Family Medicine 05/04/23 Medicaid Collection Specialist Relationship Specialty Start Date End Date Montrell Serrano MD [address] [place] [address] PCP - General Family Medicine 08/10/23 Georgia Dvaey NP [address] [place] [address] Nurse Practitioner Family Medicine 07/20/22 Georgia Davey NP [address] [place] [address] Referring Physician Family Medicine 05/04/23 Medicaid Collection Specialist Relationship Specialty Start Date End Date Montrell Serrano MD [address] [place] [address] PCP - General Family Medicine 08/10/23 Georgia Davey NP [address] [place] [address] Nurse Practitioner Family Medicine 07/20/22 Georgia Davey NP [address] [place] [address] Referring Physician Family Medicine 05/04/23 Medicaid Collection Specialist Relationship Specialty Start Date End Date Montrell Serrano MD [address] [place] [address] PCP - General Family Medicine 08/10/23 Georgia Davey NP [address] [place] [address] Referring Physician Family Medicine 05/04/23 Kwame Rodríguez NP [address] [address] [place] [address] Nurse Practitioner Behavioral Health 06/22/24 Nadia Swift DO [address] [place] [phone] Neurologist Neurology 06/22/24 Medicaid Collection Specialist Relationship Specialty Start Date End Date Montrell Serrano MD [address] [place] [address] PCP - General Family Medicine 08/10/23 Georgia Davey NP [address] [place] [phone] Referring Physician Family Medicine 05/04/23 Kwame Rodríguez NP [address] [place] [phone] Nurse Practitioner Behavioral Health 06/22/24 Nadia Swift DO [address] [place] [phone] Neurologist Neurology 06/22/24 Medicaid Collection Specialist Relationship Specialty Start Date End Date Montrell Serrano MD [address] [place] [address] PCP - General Family Medicine 08/10/23 Georgia Davey NP [address] [place] [address] Referring Physician Family Medicine 05/04/23 Kwame Rodríguez NP [address] [place] [address] [place] [address] Nurse Practitioner Behavioral Health 06/22/24 Nadia Swift DO [address] [place] [phone] Neurologist Neurology 06/22/24 Medicaid Collection Specialist Relationship Specialty Start Date End Date Montrell Serrano MD [address] [place] [address]010[address] PCP - General Family Medicine 08/10/23 Georgia Davey NP [address] [place] [address]10[address] Referring Physician Family Medicine 05/04/23 Kwame Rodríguez NP [address] [place] [phone] Nurse Practitioner Behavioral Health 06/22/24 Nadia Swift DO [address] [place] [phone] Neurologist Neurology 06/22/24 Medicaid Collection Specialist Relationship Specialty Start Date End Date Montrell Serrano MD [address] [place] [address]10[address] PCP - General Family Medicine 08/10/23 Georgia Davey NP [address] [place] [phone] Referring Physician Family Medicine 05/04/23 Kwame Rodríguez NP [address] [place], [place] [address] [address] Nurse Practitioner Behavioral Health 06/22/24 Nadia Swift DO [address] [place] [phone] Neurologist Neurology 06/22/24 Medicaid Collection Specialist Relationship Specialty Start Date End Date Montrell Serrano MD [address] [place] [phone] PCP - General Family Medicine 08/10/23 Georgia Davey NP [address] [place] [address] Referring Physician Family Medicine 05/04/23 Kwame Rodríguez NP [address] [place] [phone] Nurse Practitioner Behavioral Health 06/22/24 Nadia Swift DO [address] [place] [phone] Neurologist Neurology 06/22/24 Medicaid Collection Specialist Relationship Specialty Start Date End Date Montrell Serrano MD [address] [place] [address]10[address] PCP - General Family Medicine 08/10/23 Georgia Davey, JA [address] [place] [address]10[address] Referring Physician Family Medicine 05/04/23 Kwame Rodríguez NP [address] [address] [place] [address] Nurse Practitioner Behavioral Health 06/22/24 Nadia Swift DO [address] [place] [phone] Neurologist Neurology 06/22/24 Medicaid Collection Specialist Relationship Specialty Start Date End Date Montrell Serrano MD [address] [place] [address]10[address] PCP - General Family Medicine 08/10/23 Georgia Davey, JA [address] [place] [address] Referring Physician Family Medicine 05/04/23 Kwame Rodríguez, DENISAP- [address] [address] [place] [address] Nurse Practitioner Behavioral Health 06/22/24 Nadia Swift DO [address] [place] [phone] Neurologist Neurology 06/22/24 Armen Hernández LPC Director Of Sustainable Design Behavioral Health 08/24/24 Medicaid Collection Specialist Relationship Specialty Start Date End Date Montrell Serrano MD [address] [place] [address]84110[address] PCP - General Family Medicine 08/10/23 Georgia Davey, JA [address] [place] [address] Referring Physician Family Medicine 05/04/23 Kwame Rodríguez [facility] [address] [facility] [address] [place] [address] Nurse Practitioner Behavioral Health 06/22/24 Nadia Swift DO [address] [place] [phone] Neurologist Neurology 06/22/24 Armen Hernández LPC Director Of Sustainable Design Behavioral Health 08/24/24 Medicaid Collection Specialist Relationship Specialty Start Date End Date Montrell Serrano MD [address] [place] [address] PCP - General Family Medicine 08/10/23 Georgia Davey NP [address] [place] [address] Referring Physician Family Medicine 05/04/23 Kwame Rodríguez [facility] 112 [facility] 160 [place] [address] Nurse Practitioner Behavioral Health 06/22/24 Nadia Swift DO [address] [place] [phone] Neurologist Neurology 06/22/24 Armen Hernández LPC Director Of Sustainable Design Behavioral Health 08/24/24 Medicaid Collection Specialist Relationship Specialty Start Date End Date Montrell Serrano MD [address] [place] [address]10[address] PCP - General Family Medicine 08/10/23 Georgia Davey NP [address] [place] [address] Referring Physician Family Medicine 05/04/23 Kwame Rodríguez [facility] [address] [place], [place] [address], [place] [address] Nurse Practitioner Behavioral Health 06/22/24 Nadia Swift DO [address] [place] [phone] Neurologist Neurology 06/22/24 Armen Hernández LPC Director Of Sustainable Design Behavioral Health 08/24/24 Medicaid Collection Specialist Relationship Specialty Start Date End Date Montrell Serrano MD [address] [place] [address] PCP - General Family Medicine 08/10/23 Georgia aDvey NP [address] [place] [address] Referring Physician Family Medicine 05/04/23 [facility] 112 [facility] 160 [place] [address] Nurse Practitioner Behavioral Health 06/22/24 Nadia Swift DO [address] [phone] Neurologist Neurology 06/22/24 Armen Hernández LPC Director Of Sustainable Design Behavioral Health 08/24/24 Medicaid Collection Specialist Relationship Specialty Start Date End Date Montrell Serrano MD [address] [place] [address] PCP - General Family Medicine 08/10/23 Georgia Davey NP [address] [place] [address]10[address] Referring Physician Family Medicine 05/04/23 [facility] 112 [facility] 160 [place] [address] Nurse Practitioner Behavioral Health 06/22/24 Nadia Swift DO [address] [address] [place] [phone] Neurologist Neurology 06/22/24 Armen Hernández LPC Director Of Sustainable Design Behavioral Health 08/24/24 Medicaid Collection Specialist Relationship Specialty Start Date End Date Montrell Serrano MD [address] [place] [address] PCP - General Family Medicine 08/10/23 Georgia Davey, JA [address] [place] [address] Referring Physician Family Medicine 05/04/23 Kwame Rodríguez [facility] 112 [facility] 160 [place] [address] Nurse Practitioner Behavioral Health 06/22/24 Nadia Swift DO [address] [place] [phone] Neurologist Neurology 06/22/24 Armen Hernández LPC Director Of Sustainable Design Behavioral Health 08/24/24 Medicaid Collection Specialist Relationship Specialty Start Date End Date Montrell Serrano MD [address] [place] [address] PCP - General Family Medicine 08/10/23 Georgia Davey, JA [address] [place] [address] Referring Physician Family Medicine 05/04/23 Kwame Rodríguez [facility] 112 [facility] 160 [place] [address] Nurse Practitioner Behavioral Health 06/22/24 Nadia Swift DO [address] [place] [phone] Neurologist Neurology 06/22/24 Medicaid Collection Specialist Relationship Specialty Start Date End Date Montrell Serrano MD [address] [place] [address] PCP - General Family Medicine 08/10/23 Georgia Davey, JA [address] [place] [phone] Referring Physician Family Medicine 05/04/23 [facility] 112 [facility] 160 [place] [address] Nurse Practitioner Behavioral Health 06/22/24 Nadia Swift DO [address] [place] [phone] Neurologist Neurology 06/22/24 Medicaid Collection Specialist Relationship Specialty Start Date End Date Montrell Serrano MD [address] [place] [address] PCP - General Family Medicine 08/10/23 Georgia Davey, JA [address] [place] [address] Referring Physician Family [facility] 05/04/23 [facility] [address] [phone] Nurse Practitioner Behavioral Health 06/22/24 Nadia Swift DO [address] [place] [phone] Neurologist Neurology 06/22/24 Medicaid Collection Specialist Relationship Specialty Start Date End Date Montrell Serrano MD [address] [place] [address] PCP - General Family Medicine 08/10/23 Georgia Davey, JA [address] [place] [address] Referring Physician Family Medicine 05/04/23 [facility] [address] [address] Nurse Practitioner Behavioral Health 06/22/24 Nadia Swift DO [address] [place] [phone] Neurologist Neurology 06/22/24 Medicaid Collection Specialist Relationship Specialty Start Date End Date Montrell Serrano MD PCP - General Family Medicine 08/10/23 Georgia Davey, JA Referring Physician Family [facility] 05/04/23 [facility] [address] [phone] Nurse Practitioner Behavioral Health 06/22/24 Nadia Swift DO [address] [place] [phone] Neurologist Neurology 06/22/24 Medicaid Collection Specialist Relationship Specialty Start Date End Date Montrell Serrano MD PCP - General Family Medicine 08/10/23 Georgia Davey NP Referring Physician Family Medicine 05/04/23 Kwame Rodríguez HNP- 112 [facility] 160 [place] [address] Nurse Practitioner Behavioral Health 06/22/24 Nadia Swift DO [address] [phone] Neurologist Neurology 06/22/24 Reason for Visit (unrecogniz ed section and content) Reason Comments Tremors Specialty Diagnoses / Procedures Referred By Contac t Referred To Contact Neurology Diagnoses Tremor, unspecified Procedures [facility] OFFICE/OUTPATIENT NEW HIGH MDM 60 MINUTES Georgia Davey NP [address] [place] [address] Phone: tel: fax: Galindo eSn MD [address] [place] [address] Phone: tel: fax: Referral ID Status Reason Start Date Expiration Date V isits Requested Visits Authorized [id number] Closed Specialty Services Required 04/19/2024 10/16/2024 1 1 Reason Comments Tardive Dyskinesia Tremors Reason Comments Psychiatric Evaluation Specialty Diagnoses / Procedures Referred By Contac t Referred To Contact Behavioral Health Diagnoses Tardive dyskinesia Tremor, unspecified Procedures [facility] OFFICE/OUTPATIENT NEW HIGH MDM Jim Lees NP [address] [place] [address] Phone: tel: fax: Kwame Rodríguez NP 112 [facility] 160 [place] [address] Phone: tel: fax: Referral ID Status Reason Start Date Expiration Date V isits Requested Visits Authorized [id number] Closed Specialty Services Required 06/02/2024 11/29/2024 1 [...] Behavioral Health Diagnoses Counseling Procedures Counseling [facility] [address] [address] Phone: tel: fax: [facility] [address] [address] Phone: tel: fax: Referral ID Status Reason Start Date Expiration Date Visits Re quested Visits Authorized [id number] Closed 06/29/2024 12/26/2024 1 1 Reason Comments Bipolar Specialty Diagnoses / Procedures Referred By Contac t Referred To Contact Behavioral Health Diagnoses Counseling Procedures Counseling [facility] 112 [facility] 160 [place] [address] Phone: tel: fax: [facility] [address] [address] Phone: tel: fax: Reason Onset Date Comments [...] RE, EA 15 MIN. Olena Gomez MD [address] [id number] Phone: tel: fax: [facility] [address] [phone] Referral ID Status Reason Start Date Expiration Date Visits Requested Visits Authorized [id number] Authorized Auto-Generat ed Referral 07/20/2024 07/19/2025 40 40 Reason Comments Consult Specialty Diagnoses / Procedures Referred By Contac t Referred To Contact Psychology / NEUROLOGICAL AMISH Diagnoses Functional movement disorder Dyskinesia, tardive Procedures OFFICE/OUTPATIENT [facility] 60 MINUTES Olena Gomez MD [address] [id number] Phone: tel: fax: Neurological [facility] [address] [phone] Phone: tel: Referral ID Status Reason Start Date Expiration Date V isits Requested Visits Authorized [id number] Closed PCP Requested Referral 02/15/2025 05/16/2025 1 1 Reason Comments Follow-up Med Management Bipolar Anxiety Source Comments (unrecognize d section and content) In the event this informatio n is protected by the Federal Confidentiality of Alcohol and Drug Abuse Patient Records regulations: The Federal rules restrict any use of the information to criminally investigate or prosecute any alcohol or drug abuse patient.[facility] the event this information is protected by the Federal Confidentiality of Alcohol and Drug Abuse Patient Records regulations: The Federal rules restrict any use of the information to criminally investigate or prosecute any alcohol or drug abuse patient.[facility] the event this information is protected by the Federal Confidentiality of Alcohol and Drug Abuse Patient Records regulations: The Federal rules restrict any use of the information to criminally investigate or prosecute any alcohol or drug abuse patient.[facility] the event this information is protected by the Federal Confidentiality of Alcohol and Drug Abuse Patient Records regulations: The Federal rules restrict any use of the information to criminally investigate or prosecute any alcohol or drug abuse patient.[facility] FOR RECORDS PERTAINING TO PATIENTS WHO ARE [...] BE BASED ON THE PRIMARY CLINICAL RECORDS. [facility]. provides no warranty or guarantee of the accuracy or completeness of information in this document.
--- OUTSIDE RECORDS SUMMARY | 2025-04-26 16:15 | XMS_ITS | CCD ---
Author Organization [facility] Care Team Providers Care Lacing Operator Name Role Phone AICHHOLZ, WORD PROCESSOR [place] Admitting Unavailable AICHHOLZ, WORD PROCESSOR [place] Attending Unavailable AICHHOLZ, WORD PROCESSOR [place] Primary Care Unavailable AICHHOLZ, WORD PROCESSOR [place] Consulting Unavailable AICHHOLZ, WORD PROCESSOR [place] Admitting Unavailable AICHHOLZ, WORD PROCESSOR [place] Attending Unavailable AICHHOLZ, WORD PROCESSOR [place] Primary Care Unavailable AICHHOLZ, WORD PROCESSOR [place] Consulting Unavailable AICHHOLZ, WORD PROCESSOR [place] Admitting Unavailable AICHHOLZ, WORD PROCESSOR [place] Attending Unavailable AICHHOLZ, WORD PROCESSOR [place] Primary Care Unavailable DR LISSETH SANTOS V Consulting Unavailable AICHHOLZ, WORD PROCESSOR [place] Consulting Unavailable AICHHOLZ, WORD PROCESSOR [place] Admitting Unavailable AICHHOLZ, WORD PROCESSOR [place] Attending Unavailable AICHHOLZ, WORD PROCESSOR [place] Primary Care Unavailable Aichholz CIVIL MANAGER, [place] Unavailable Aichholz CIVIL MANAGER, [place] Unavailable Montrell Serrano MD Primary Care Provider Montrell Serrano MD Primary Care Provider Aichluis CIVIL MANAGER, [place] Unavailable Marcos PERES, Kwame Unavailable [phone] Nadia Swift DO Unavailable [phone] Marcos [facility] Kwame Unavailable Armen Hernández [facility] Unavailable Unavailable Unavailable Primary Care Provider UnavailOLENA Livingston Referring Unavailable SELF Referring Unavailable OLENA GOMEZ Attending Unavailable STEVO GARCIA Attending Unavailable OLENA GOMEZ Referring Unavailable Aichholz CIVIL MANAGER, [place] Unavailable Montrell Serrano MD Primary Care [...] Morphine; Translations: [MORPHINE] Drug Allergy 7 [facility] (2 sources) Penicillin Drug Allergy 7 [facility] (20 sources) Morphine Drug Allergy 9 Hives, Unknown [facility] (20 sources) Penicillins; Translations: [PENICILLINS] Drug Allergy [address] [facility] (4 sources) Penicillins Drug Allergy [address] [facility] Medications Current Medications Medication Drug [...] with meals. 0 Active polyethylene glycol 3350 40117 mg powder for oral solution (2 sources) [...] Start: 11-30-2024 take 1 capsule by mo [facility] once daily Valbenazine Tosylate (Ingrezza) 60 [...] 02-16-2025 CNTHERAPY OT/PT/Speech Visit (PHYTMN) TAHIRA AGUSTIN ([id number]) 1980 M Date Time Provider Department 02/16/25 7:45 AM MYRIAM LUIS Date Time Provider Department [place] 02/16/2025 7:45 AM [id number] LUIS PHYTKRISTA Main - C Bld Reason [...] tablet Take 50 mg by mouth. Normal [facility] CNOVon 02-15-2025 CNOV Office Visit (NREUS2 ) TAHIRA AGUSTIN ([id number]) 1980 M Date Time Provider Department 02/15/25 8:00 AM RADHA HEAVENSUZANNA NREUS2 During your visit today, we recorded the following information about you: Stevo Garcia PSYD 03/06/2025 10:38 PM Signed [facility] Clinical [facility] Psychology Evaluation Time of Service: 8:05 [...] Social History: Mr. Agustin was raised in [place]. He has one half brother who is [...] at the (more content not included)... Normal [facility] CNOVon 02-03-2025 CNOV Office Visit (NREUS2 ) TAHIRA AGUSTIN ([id number]) 1980 M Date Time Provider Department 02/03/25 [...] tardive dyskinesia and tremor. He is from [facility] and follows with a local psychiatry team. Chart Review: Per records he is currently on fluoxetine, lamotrigine, propranolol, and valbenazine. 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 Normal [facility] CBC AUTO DIFFon 04-23-2022 BASO # 0.1 103/ul Normal 0.0-0.1 [facility] Comment on above: Performed By: #### C BC #### [facility] [address] [place] [address] Dr. Lazara Mott Basophils/100 WBC (Bld) 1.4 % Normal 0.2-2.0 [facility] Comment on above: Performed By: #### C BC #### [facility] [address] [place] [address] Dr. Lazara Mott EO # 0.3 103/ul Normal 0.0-0.7 [facility] Comment on above: Performed By: #### C BC #### [facility] [address] [place] [address] Dr. Lazara Mott Eosinophils/100 WBC (Bld) 3.1 % Normal 0.9-7.0 [facility] Comment on above: Performed By: #### C BC #### [facility] [address] [place] [address] Dr. Lazara Mott Erythrocyte distribution width (RBC) [Ratio] 12.2 % Normal 11.0-15.0 [facility] Comment on above: Performed By: #### C BC #### [facility] [address] [place] [address] Dr. Lazara Mott Hematocrit (Bld) [Volume fraction] 45.0 % Normal 42.0-54.0 [facility] Comment on above: Performed By: #### C BC #### [facility] [address] [place] [address] Dr. Lazara Mott Hemoglobin (Bld) [Mass/Vol] 15.2 g/dL Normal 14.0-18.0 [facility] Comment on above: Performed By: #### C BC #### [facility] [address] [place] [address] Dr. Lazara Mott IG # 0.06 10e3/ul Critically high 0.00-0.03 [facility] Comment on above: Performed By: #### C BC #### [facility] [address] [place] [address] Dr. Lazara Mott IG % 0.7 % Critically high 0.0-0.5 [facility] Comment on above: Performed By: #### C BC #### [facility] [address] [place] [address] Dr. Lazara Mott LYMPH # 2.5 103/ul Normal 1.2-3.8 [facility] Comment on above: Performed By: #### C BC #### [facility] [address] [place] [address] Dr. Lazara Mott Lymphocytes/100 WBC (Bld) 31.5 % Normal 20.5-60.0 [facility] Comment on above: Performed By: #### C BC #### [facility] [address] [place] [address] Dr. Lazara Mott MANUAL DIFF REQ NO Normal [facility] Comment on above: Performed By: #### C BC #### [facility] [address] [place] [address] Dr. Lazara Mott MCH (RBC) [Entitic mass] 30.6 pg Normal 25.9-34.0 [facility] Comment on above: Performed By: #### C BC #### [facility] [address] [place] [address] Dr. Lazara Mott MCHC (RBC) [Mass/Vol] 33.8 g/dL Normal 29.9-35.2 [facility] Comment on above: Performed By: #### C BC #### [facility] [address] [place] [address] Dr. Lazara Mott MCV (RBC) [Entitic vol] 90.7 fL Normal 80.0-94.0 [facility] Comment on above: Performed By: #### C BC #### [facility] [address] [place] [address] Dr. Lazara Mott MONO # 0.7 103/ul Normal 0.3-0.8 [facility] Comment on above: Performed By: #### C BC #### [facility] [address] [place] [address] Dr. Lazara Mott Monocytes/100 WBC (Bld) 8.7 % Normal 1.7-12.0 [facility] Comment on above: Performed By: #### C BC #### [facility] [address] [place] [address] Dr. Lazara Mott NEUT # 4.4 103/ul Normal 1.4-6.5 [facility] Comment on above: Performed By: #### C BC #### [facility] [address] [place] [address] Dr. Lazara Mott Neutrophils/100 WBC (Bld) 54.6 % Normal 43.0-75.0 [facility] Comment on above: Performed By: #### C BC #### [facility] [address] [place] [address] Dr. Lazara Mott Platelet mean volume (Bld) [Entitic vol] 9.9 fL Normal 9.5-13.5 [facility] Comment on above: Performed By: #### C BC #### [facility] [address] [place] [address] Dr. Lazara Mott PLT 297 103/ul Normal 150-450 [facility] Comment on above: Performed By: #### C BC #### [facility] [address] [place] [address] Dr. Lazara Mott RBC 4.96 106/ul Normal 4.70-6.10 [facility] Comment on above: Performed By: #### C BC #### [facility] [address] [place] [address] Dr. Lazara Mott WBC 8.0 103/ul Normal 4.0-11.0 [facility] Comment on above: Performed By: #### C BC #### [facility] [address] [address] [address] Lazara Mott LIPID PROFILEon 04-23-2022 CHOL-HDL RATIO NORM SEE BELOW Normal [facility] Comment on above: Result Comment: 3.3 - 4.4 LOW RISK 4.4 - 7.1 AVERAGE RISK 7.1 - 11.0 MODERATE RISK >11.0 HIGH RISK Performed By: #### T SH, LIPID, CMP #### [facility] [address] [address] [address] Lazara Mott Cholesterol [Mass/Vol] 145 mg/dL Normal <=200 [facility] Comment on above: Performed By: #### T SH, LIPID, CMP #### [facility] [address] [address] [address] Lazara Mott Cholesterol in HDL [Mass/Vol] 43 mg/dL Normal 40-60 [facility] Comment on above: Performed By: #### T JOSEMANUEL, LIPID, CMP #### [facility] [address] [address] [address] Lazara Mott Cholesterol in LDL [Mass/Vol] 62.0 mg/dL Normal [facility] Comment on above: Performed By: #### T SH, LIPID, CMP #### [facility] [address] [address] [address] Lazara Mott Cholesterol.total/ Cholesterol in HDL [Mass ratio] 3.4 {ratio} Normal [facility] Comment on above: Performed By: #### T SH, LIPID, CMP #### [facility] [address] [address] [address] Lazara Mott HDL NORMAL > or = 60 mg/dl - LO W CARDIOVASCULAR RISK <40 mg/dl - HIGH CARDIOVASCULAR RISK Normal [facility] Comment on above: Performed By: #### T SH, LIPID, CMP #### [facility] [address] [address] [address] Lazara Mott LDL CALC NORMAL SEE BELOW Normal [facility] Comment on above: Result Comment: <100 mg/dl OPTIMAL 100 - 129 mg/dl NEAR OR ABOVE OPTIMAL 130 - 159 mg/dl BORDERLINE HIGH 160 - 189 mg/dl HIGH >190 mg/dl VERY HIGH Performed By: #### T JOSEMANUEL, LIPID, CMP #### [facility] [address] [place] [address] Dr. Lazara Mott Triglyceride [Mass/Vol] 200 mg/dL Critically high <=150 [facility] Comment on above: Performed By: #### T SH, LIPID, CMP #### [facility] [address] [place] [address] Dr. Lazara Mott VLDL CALC 40.0 mg/dL Normal [facility] Comment on above: Performed By: #### T JOSEMANUEL, LIPID, CMP #### [facility] [address] [place] [address] Dr. Lazara Mott PROF 14(COMP METB)on 022 Albumin [Mass/Vol] 4.0 g/dL Normal 3.4-5.0 [facility] Comment on above: Performed By: #### T JOSEMANUEL, LIPID, CMP #### [facility] [address] [place] [address] Dr. Lazara Mott Albumin/Globulin [Mass ratio] 1.2 {ratio} Normal [facility] Comment on above: Performed By: #### T JOSEMANUEL, LIPID, CMP #### [facility] [address] [place] [address] Dr. Lazara Mott ALP [Catalytic activity/Vol] 80 U/L Normal 46-116 [facility] Comment on above: Performed By: #### T JOSEMANUEL, LIPID, CMP #### [facility] [address] [place] [address] Dr. Lazara Mott ALT [Catalytic activity/Vol] 67 U/L Critically high 16-63 [facility] Comment on above: Performed By: #### T JOSEMANUEL, LIPID, CMP #### [facility] [address] [place] [address] Dr. Lazara Mott Anion gap [Moles/Vol] 13.9 mmol/L Normal [facility] Comment on above: Performed By: #### T JOSEMANUEL, LIPID, CMP #### [facility] [address] [place] [address] Dr. Lazara Mott AST [Catalytic activity/Vol] 26 U/L Normal 15-37 [facility] Comment on above: Performed By: #### T SH, LIPID, CMP #### [facility] [address] [place] [address] Dr. Lazara Mott Bilirubin [Mass/Vol] 0.6 mg/dL Normal 0.2-1.0 [facility] Comment on above: Performed By: #### T SH, LIPID, CMP #### [facility] [address] [place] [address] Dr. Lazara Mott Calcium [Mass/Vol] 8.9 mg/dL Normal 8.5-10.1 [facility] Comment on above: Performed By: #### T SH, LIPID, CMP #### [facility] [address] [place] [address] Dr. Lazara Mott Chloride [Moles/Vol] 102 mmol/L Normal 98-107 [facility] Comment on above: Performed By: #### T SH, LIPID, CMP #### [facility] [address] [place] [address] Dr. Lazara Mott CO2 [Moles/Vol] 24.9 mmol/L Normal 21.0-32.0 [facility] Comment on above: Performed By: #### T SH, LIPID, CMP #### [facility] [address] [place] [address] Dr. Lazara Mott Creatinine [Mass/Vol] 1.13 mg/dL Normal 0.70-1.30 [facility] Comment on above: Performed By: #### T SH, LIPID, CMP #### [facility] [address] [place] [address] Dr. Lazara Mott EGFR-AF GREENLANDIC >60 Normal >=60 [facility] Comment on above: Performed By: #### T SH, LIPID, CMP #### [facility] [address] [place] [address] Dr. Lazara Mott EGFR-NON AF GREENLANDIC >60 Normal >=60 [facility] Comment on above: Performed By: #### T SH, LIPID, CMP #### [facility] [address] [address] [address] Lazara Mott Globulin (S) [Mass/Vol] 3.3 g/dL Normal [facility] Comment on above: Performed By: #### T JOSEMANUEL, LIPID, CMP #### [facility] [address] [place] [address] Dr. Lazara Mott Glucose [Mass/Vol] 87 mg/dL Normal 74-106 [facility] Comment on above: Performed By: #### T JOSEMANUEL, LIPID, CMP #### [facility] [address] [place] [address] Dr. Lazara Mott Potassium [Moles/Vol] 3.8 mmol/L Normal 3.5-5.1 [facility] Comment on above: Performed By: #### T JOSEMANUEL LIPID, CMP #### [facility] [address] [place] [address] Dr. Lazara Mott Protein [Mass/Vol] 7.3 g/dL Normal 6.4-8.2 [facility] Comment on above: Performed By: #### T JOSEMANUEL, LIPID, CMP #### [facility] [address] [place] [address] Dr. Lazara Mott Sodium [Moles/Vol] 137 mmol/L Normal 136-145 [facility] Comment on above: Performed By: #### T JOSEMANUEL, LIPID, CMP #### [facility] [address] [place] [address] Dr. Lazara Mott Urea nitrogen [Mass/Vol] 9.0 mg/dL Normal 7.0-18.0 [facility] Comment on above: Performed By: #### T JOSEMANUEL, LIPID, CMP #### [facility] [address] [place] [address] Dr. Lazara Mott Urea nitrogen/Creatinin e [Mass ratio] 8.0 mg/mg Normal [facility] Comment on above: Performed By: #### T JOSEMANUEL, LIPID, CMP #### [facility] [address] [place] [address] Dr. Lazara Mott TSHon 04-23-2022 TSH 1.148 uIU/mL Normal 0.358-3.740 [facility] Comment on above: Performed By: #### T SH, LIPID, CMP #### [facility] [address] [address] [address] Lazara Mott UA RANDOM W/MICROSCOPICon AMORPHOUS CRYSTALS MODERATE Normal [facility] Comment on above: Performed By: #### U AMIC #### [facility] [address] [address] [address] Lazara Mott BACTERIA NONE SEEN Normal NONE SEEN [facility] Comment on above: Performed By: #### U AMIC #### [facility] [address] [address] [address] Lazara Mott Bilirubin Ql (U) Negative Normal NEGATIVE [facility] Comment on above: Performed By: #### U AMIC #### [facility] [address] [address] [address] Lazara Mott CAST NONE SEEN Normal NONE SEEN [facility] Comment on above: Performed By: #### U AMIC #### [facility] [address] [address] [address] Lazara Mott Clarity (U) SL CLOUDY Abnormal CLEAR [facility] Comment on above: Performed By: #### U AMIC #### [facility] [address] [address] [address] Lazara Mott Color (U) LT. YELLOW Normal YELLOW [facility] Comment on above: Performed By: #### U AMIC #### [facility] [address] [address] [address] Lazara Mott Crystals LM Nom (Urine sed) SEEN Abnormal NONE SEEN [facility] Comment on above: Performed By: #### U AMIC #### [facility] [address] [address] [address] Lazara Mott Epithelial cells LM Ql (Urine sed) NONE SEEN Normal NONE SEEN /RARE [facility] Comment on above: Performed By: #### U AMIC #### [facility] [address] [address] [address] Lazara Mott Glucose Ql (U) Negative Normal NEGATIVE [facility] Comment on above: Performed By: #### U AMIC #### [facility] [address] [address] [address] Lazara Mott Hemoglobin Ql (U) Negative Normal NEGATIVE [facility] Comment on above: Performed By: #### U AMIC #### [facility] [address] [address] [address] Lazara Mott Ketones Ql (U) Negative Normal NEGATIVE [facility] Comment on above: Performed By: #### U AMIC #### [facility] [address] [address] [address] Lazara Mott LEUKOCYTES Negative Normal NEGATIVE [facility] Comment on above: Performed By: #### U AMIC #### [facility] [address] [address] [address] Lazara Mott MUCOUS NONE SEEN Normal NONE SEEN [facility] Comment on above: Performed By: #### U AMIC #### [facility] [address] [address] [address] Lazara Mott Nitrite Ql (U) Negative Normal NEGATIVE [facility] Comment on above: Performed By: #### U AMIC #### [facility] [address] [address] [address] Lazara Mott pH (U) 8.5 [pH] Normal 5-9 [facility] Comment on above: Performed By: #### U AMIC #### [facility] [address] [place] [address] Dr. Lazara Mott RBC 0-2 Normal 0-2 [facility] Comment on above: Performed By: #### U AMIC #### [facility] [address] [place] [address] Dr. Lazara Mott SPEC GRAVITY 1.015 Normal 1.005-<=1.025 [facility] Comment on above: Performed By: #### U AMIC #### [facility] [address] [place] [address] Dr. Lazara Mott UA PROTEIN Negative Normal NEGATIVE/ TRACE [facility] Comment on above: Performed By: #### U AMIC #### [facility] [address] [place] [address] Dr. Lazara Mott Urobilinogen Qn (U) 0.2 {Anum'U}/dL Normal 0.2 - 1.0 [facility] Comment on above: Performed By: #### U AMIC #### [facility] [address] [place] [address] Dr. Lazara Mott WBC 0-2 Abnormal NONE SEEN [facility] Comment on above: Performed By: #### U AMIC #### [facility] [address] [place] [address] Dr. Lazara Mott CBC AUTO DIFFon 08-20-2021 BASO # 0.1 103/ul Normal 0.0-0.1 [facility] Comment on above: Performed By: #### C MP, TSH, LIPID, FT3 #### [facility] [address] [place] [address] Dr. Lazara Mott Basophils/100 WBC (Bld) 1.1 % Normal 0.2-2.0 [facility] Comment on above: Performed By: #### C MP, TSH, LIPID, FT3 #### [facility] [address] [place] [address] Dr. Lazara Mott EO # 0.2 103/ul Normal 0.0-0.7 [facility] Comment on above: Performed By: #### C MP, TSH, LIPID, FT3 #### [facility] [address] [place] [address] Dr. Lazara Mott Eosinophils/100 WBC (Bld) 2.3 % Normal 0.9-7.0 [facility] Comment on above: Performed By: #### C MP, TSH, LIPID, FT3 #### [facility] [address] [place] [address] Dr. Lazara Mott Erythrocyte distribution width (RBC) [Ratio] 12.1 % Normal 11.0-15.0 [facility] Comment on above: Performed By: #### C MP, TSH, LIPID, FT3 #### [facility] [address] [place] [address] Dr. Lazara Mott Hematocrit (Bld) [Volume fraction] 42.4 % Normal 42.0-54.0 [facility] Comment on above: Performed By: #### C MP, TSH, LIPID, FT3 #### [facility] [address] [place] [address] Dr. Lazara Mott Hemoglobin (Bld) [Mass/Vol] 14.5 g/dL Normal 14.0-18.0 [facility] Comment on above: Performed By: #### C MP, TSH, LIPID, FT3 #### [facility] [address] [place] [address] Dr. Lazara Mott IG # 0.04 10e3/ul Critically high 0.00-0.03 [facility] Comment on above: Performed By: #### C MP, TSH, LIPID, FT3 #### [facility] [address] [place] [address] Dr. Lazara Mott IG % 0.5 % Normal 0.0-0.5 [facility] Comment on above: Performed By: #### C MP, TSH, LIPID, FT3 #### [facility] [address] [place] [address] Dr. Lazara Mott LYMPH # 2.5 103/ul Normal 1.2-3.8 [facility] Comment on above: Performed By: #### C MP, TSH, LIPID, FT3 #### [facility] [address] [place] [address] Dr. Lazara Mott Lymphocytes/100 WBC (Bld) 31.3 % Normal 20.5-60.0 [facility] Comment on above: Performed By: #### C MP, TSH, LIPID, FT3 #### [facility] [address] [place] [address] Dr. Lazara Mott MANUAL DIFF REQ NO Normal [facility] Comment on above: Performed By: #### C MP, TSH, LIPID, FT3 #### [facility] [address] [place] [address] Dr. Lazara Mott MCH (RBC) [Entitic mass] 30.7 pg Normal 25.9-34.0 [facility] Comment on above: Performed By: #### C MP, TSH, LIPID, FT3 #### [facility] [address] [place] [address] Dr. Lazara Mott MCHC (RBC) [Mass/Vol] 34.2 g/dL Normal 29.9-35.2 [facility] Comment on above: Performed By: #### C MP, TSH, LIPID, FT3 #### [facility] [address] [place] [address] Dr. Lazara Mott MCV (RBC) [Entitic vol] 89.6 fL Normal 80.0-94.0 [facility] Comment on above: Performed By: #### C MP, TSH, LIPID, FT3 #### [facility] [address] [place] [address] Dr. Lazara Mott MONO # 0.8 103/ul Normal 0.3-0.8 [facility] Comment on above: Performed By: #### C MP, TSH, LIPID, FT3 #### [facility] [address] [place] [address] Dr. Lazara Mott Monocytes/100 WBC (Bld) 10.2 % Normal 1.7-12.0 [facility] Comment on above: Performed By: #### C MP, TSH, LIPID, FT3 #### [facility] [address] [place] [address] Dr. Lazara Mott NEUT # 4.3 103/ul Normal 1.4-6.5 [facility] Comment on above: Performed By: #### C MP, TSH, LIPID, FT3 #### [facility] [address] [place] [address] Dr. Lazara Mott Neutrophils/100 WBC (Bld) 54.6 % Normal 43.0-75.0 [facility] Comment on above: Performed By: #### C MP, TSH, LIPID, FT3 #### [facility] [address] [place] [address] Dr. Lazara Mott Platelet mean volume (Bld) [Entitic vol] 9.3 fL Critically low 9.5-13.5 [facility] Comment on above: Performed By: #### C MP, TSH, LIPID, FT3 #### [facility] [address] [place] [address] Dr. Lazara Mott PLT 294 103/ul Normal 150-450 [facility] Comment on above: Performed By: #### C MP, TSH, LIPID, FT3 #### [facility] [address] [place] [address] Dr. Lazara Mott RBC 4.73 106/ul Normal 4.70-6.10 [facility] Comment on above: Performed By: #### C MP, TSH, LIPID, FT3 #### [facility] [address] [place] [address] Dr. Lazara Mott WBC 7.9 103/ul Normal 4.0-11.0 [facility] Comment on above: Performed By: #### C MP, TSH, LIPID, FT3 #### [facility] [address] [place] [address] Dr. Lazara Mott FREE T3on 08-20-2021 FREE T3 3.42 pg/mlL Normal 2.77-5.27 [facility] Comment on above: Performed By: #### C MP, TSH, LIPID, FT3 #### [facility] [address] [place] [address] Dr. Lazara Mott FREE T4on 08-20-2021 Free T4 [Mass/Vol] 0.95 ng/dL Normal 0.78-2.19 [facility] Comment on above: Performed By: #### C MP, TSH, LIPID, FT3 #### [facility] [address] [place] [address] Dr. Lazara Mott LIPID PROFILEon 08-20-2021 CHOL-HDL RATIO NORM SEE BELOW Normal [facility] Comment on above: Result Comment: 3.3 - 4.4 LOW RISK 4.4 - 7.1 AVERAGE RISK 7.1 - 11.0 MODERATE RISK >11.0 HIGH RISK Performed By: #### C MP, TSH, LIPID, FT3 #### [facility] [address] [place] [address] Dr. Lazara Mott Cholesterol [Mass/Vol] 159 mg/dL Normal <=200 [facility] Comment on above: Performed By: #### C MP, TSH, LIPID, FT3 #### [facility] [address] [address] [address] Lazara Mott Cholesterol in HDL [Mass/Vol] 41 mg/dL Normal [facility] Comment on above: Performed By: #### C MP, TSH, LIPID, FT3 #### [facility] [address] [address] [address] Lazara Mott Cholesterol in LDL [Mass/Vol] 94.0 mg/dL Normal [facility] Comment on above: Performed By: #### C MP, TSH, LIPID, FT3 #### [facility] [address] [address] [address] Lazara Mott Cholesterol.total/ Cholesterol in HDL [Mass ratio] 3.9 {ratio} Normal [facility] Comment on above: Performed By: #### C MP, TSH, LIPID, FT3 #### [facility] [address] [address] [address] Lazara Mott HDL NORMAL > or = 60 mg/dl - LO W CARDIOVASCULAR RISK <40 mg/dl - HIGH CARDIOVASCULAR RISK Normal [facility] Comment on above: Performed By: #### C MP, TSH, LIPID, FT3 #### [facility] [address] [address] [address] Lazara Mott LDL CALC NORMAL SEE BELOW Normal [facility] Comment on above: Result Comment: <100 mg/dl OPTIMAL 100 - 129 mg/dl NEAR OR ABOVE OPTIMAL 130 - 159 mg/dl BORDERLINE HIGH 160 - 189 mg/dl HIGH >190 mg/dl VERY HIGH Performed By: #### C MP, TSH, LIPID, FT3 #### [facility] [address] [address] [address] Lazara Mott Triglyceride [Mass/Vol] 120 mg/dL Normal <=150 [facility] Comment on above: Performed By: #### C MP, TSH, LIPID, FT3 #### [facility] [address] [address] [address] Lazara Mott VLDL CALC 24.0 mg/dL Normal [facility] Comment on above: Performed By: #### C MP, TSH, LIPID, FT3 #### [facility] [address] [place] [address] Dr. Lazara Mott PROF 14(COMP METB)on 022 Albumin [Mass/Vol] 4.1 g/dL Normal 3.5-5.0 [facility] Comment on above: Performed By: #### C MP, TSH, LIPID, FT3 #### [facility] [address] [place] [address] Dr. Lazara Mott Albumin/Globulin [Mass ratio] 1.2 {ratio} Normal [facility] Comment on above: Performed By: #### C MP, TSH, LIPID, FT3 #### [facility] [address] [place] [address] Dr. Lazara Mott ALP [Catalytic activity/Vol] 79 U/L Normal 38-126 [facility] Comment on above: Performed By: #### C MP, TSH, LIPID, FT3 #### [facility] [address] [place] [address] Dr. Lazara Mott ALT [Catalytic activity/Vol] 76 U/L Critically high 21-72 [facility] Comment on above: Performed By: #### C MP, TSH, LIPID, FT3 #### [facility] [address] [place] [address] Dr. Lazara Mott Anion gap [Moles/Vol] 10.6 mmol/L Normal [facility] Comment on above: Performed By: #### C MP, TSH, LIPID, FT3 #### [facility] [address] [place] [address] Dr. Lazara Mott AST [Catalytic activity/Vol] 21 U/L Normal 17-59 [facility] Comment on above: Performed By: #### C MP, TSH, LIPID, FT3 #### [facility] [address] [place] [address] Dr. Lazara Mott Bilirubin [Mass/Vol] 0.4 mg/dL Normal 0.2-1.3 [facility] Comment on above: Performed By: #### C MP, TSH, LIPID, FT3 #### [facility] [address] [place] [address] Dr. Lazara Mott Calcium [Mass/Vol] 9.0 mg/dL Normal 8.4-10.2 [facility] Comment on above: Performed By: #### C MP, TSH, LIPID, FT3 #### [facility] [address] [address] [address] Lazara Mott Chloride [Moles/Vol] 104 mmol/L Normal 98-107 [facility] Comment on above: Performed By: #### C MP, TSH, LIPID, FT3 #### [facility] [address] [address] [address] Lazara Mott CO2 [Moles/Vol] 27.1 mmol/L Normal 22.0-30.0 [facility] Comment on above: Performed By: #### C MP, TSH, LIPID, FT3 #### [facility] [address] [place] [address] Dr. Lazara Mott Creatinine [Mass/Vol] 1.13 mg/dL Normal 0.66-1.25 [facility] Comment on above: Performed By: #### C MP, TSH, LIPID, FT3 #### [facility] [address] [place] [address] Dr. Lazara Mott EGFR-AF GREENLANDIC >60 Normal >=60 [facility] Comment on above: Performed By: #### C MP, TSH, LIPID, FT3 #### [facility] [address] [place] [address] Dr. Lazara Mott EGFR-NON AF GREENLANDIC >60 Normal >=60 [facility] Comment on above: Performed By: #### C MP, TSH, LIPID, FT3 #### [facility] [address] [address] [address] Lazara Mott Globulin (S) [Mass/Vol] 3.3 g/dL Normal [facility] Comment on above: Performed By: #### C MP, TSH, LIPID, FT3 #### [facility] [address] [place] [address] Dr. Lazara Mott Glucose [Mass/Vol] 95 mg/dL Normal 74-106 [facility] Comment on above: Performed By: #### C MP, TSH, LIPID, FT3 #### [facility] [address] [place] [address] Dr. Lazara Mott Potassium [Moles/Vol] 3.7 mmol/L Normal 3.4-5.0 [facility] Comment on above: Performed By: #### C MP, TSH, LIPID, FT3 #### [facility] [address] [place] [address] Dr. Lazara Mott Protein [Mass/Vol] 7.4 g/dL Normal 6.1-8.2 [facility] Comment on above: Performed By: #### C MP, TSH, LIPID, FT3 #### [facility] [address] [place] [address] Dr. Lazara Mott Sodium [Moles/Vol] 138 mmol/L Normal 137-145 [facility] Comment on above: Performed By: #### C MP, TSH, LIPID, FT3 #### [facility] [address] [place] [address] Dr. Lazara Mott Urea nitrogen [Mass/Vol] 13.0 mg/dL Normal 9.0-20.0 [facility] Comment on above: Performed By: #### C MP, TSH, LIPID, FT3 #### [facility] [address] [place] [address] Dr. Lazara Mott Urea nitrogen/Creatinin e [Mass ratio] 11.5 mg/mg Normal [facility] Comment on above: Performed By: #### C MP, TSH, LIPID, FT3 #### [facility] [address] [place] [address] Dr. Lazara Mott TSHon 08-20-2021 TSH 2.329 uIU/mL Normal 0.470-4.680 [facility] Comment on above: Performed By: #### C MP, TSH, LIPID, FT3 #### [facility] [address] [place] [address] Dr. Lazara Mott TSH RANGE SEE BELOW Normal [facility] Comment on above: Result Comment: <0.3 4 UIU/ml HYPERTHYROID 0.34-5.60 UIU/ml EUTHYROID >5.60 UIU/ml HYPOTHYROID Performed By: #### C MP, TSH, LIPID, FT3 #### [facility] [address] [address] [address] Lazara Mott XR CHEST 2 Von [...] by: LISSETH SANTOS Date: 2021-08-20 10:06 Normal [facility] Vital Signs Date Time Vital Sign Value Performing Clinician [facility] 02-22-2025 07:52-0400 Body mass index (BMI) [Ratio] 25.5 kg/m2 Kwame Rodríguez HNP-[facility] Work Phone: [facility] 02-22-2025 07:52-0400 Body weight 85.28 kg Kwame Keyeston HNP-[facility] Work Phone: [facility] 02-22-2025 07:52-0400 Diastolic blood pressure 72 mm[Hg] Kwame Rodríguez [facility]NP[facility] Work Phone: [facility] 02-22-2025 07:52-0400 Heart rate 71 /min Kwame Rodríguez HNP[facility] Work Phone: [facility] 02-22-2025 07:52-0400 Systolic blood pressure 100 mm[Hg] Kwame Rodríguez [facility]NP[facility] Work Phone: [facility] 02-03-2025 09:28-0400 Diastolic blood pressure 80 mm[Hg] Olena Gomez MD Work Phone: [facility] 02-03-2025 09:28-0400 Heart rate 71 /min Olena Gomez MD Work Phone: [facility] 02-03-2025 09:28-0400 SaO2% (BldA) [Mass fraction] 99 % Olena Gomez MD Work Phone: [facility] 02-03-2025 09:28-0400 Systolic blood pressure 119 mm[Hg] Olena Gomez MD Work Phone: [facility] 01-25-2025 07:56-0400 Body mass index (BMI) [Ratio] 26.04 kg/m2 Kwame Rodríguez PMHNP-BC Work Phone: [facility] 01-25-2025 07:56-0400 Body weight 87.09 kg Kwame Rodríguez PMHNP-BC Work Phone: [facility] 01-25-2025 07:56-0400 Diastolic blood pressure 72 mm[Hg] Kwame Rodríguez PMHNP-BC Work Phone: [facility] 01-25-2025 07:56-0400 Heart rate 67 /min Kwame Rodríguez PMHNP-BC Work Phone: [facility] 01-25-2025 07:56-0400 Systolic blood pressure 108 mm[Hg] Kwame Rodríguez PMHNP-BC Work Phone: [facility] 01-24-2025 08:32-0400 Body mass index (BMI) [Ratio] 26.04 kg/m2 Georgia Yogeshz [employer]IV[employer] MA[employer]GER Work Phone: [facility] 01-24-2025 08:32-0400 Body temperature 97.81 [degF] Georgia Yogeshz CIVIL MANAGER Work Phone: [facility] 01-24-2025 08:32-0400 Body weight 87.09 kg Georgia Aichholz CIVIL MANAGER Work Phone: [facility] 01-24-2025 08:32-0400 Diastolic blood pressure 76 mm[Hg] Georgia Aichholz CIVIL MANAGER Work Phone: [facility] 01-24-2025 08:32-0400 Heart rate 71 /min Georgia Aicnicolaz CIVIL MANAGER Work Phone: [facility] 01-24-2025 08:32-0400 Respiratory rate 18 /min Georgia Davey CIVIL MANAGER Work Phone: [facility] 01-24-2025 08:32-0400 SaO2% (BldA) [Mass fraction] 97 % Georgia Davey CIVIL MANAGER Work Phone: [facility] 01-24-2025 08:32-0400 Systolic blood pressure 118 mm[Hg] Georgia Davey CIVIL MANAGER Work Phone: [facility] 11-30-2024 07:49-0400 Body mass index (BMI) [Ratio] 26.99 kg/m2 Kwame Keyeston PMHNP-BC Work Phone: [facility] 11-30-2024 07:49-0400 Body weight 90.27 kg Kwame Rodríguez PMHNP-BC Work Phone: [facility] 11-30-2024 07:49-0400 Diastolic blood pressure 64 mm[Hg] Kwame Rodríguez PMHNP-BC Work Phone: [facility] 11-30-2024 07:49-0400 Heart rate 86 /min Kwame Rodríguez PMHNP-BC Work Phone: [facility] 11-30-2024 07:49-0400 Systolic blood pressure 116 mm[Hg] Kwame Rodríguez PMHNP-BC Work Phone: [facility] 11-09-2024 07:55-0400 Body mass index (BMI) [Ratio] 26.99 kg/m2 Kwame Rodríguez PMHNP-BC Work Phone: [facility] 11-09-2024 07:55-0400 Body weight 90.27 kg Kwame Rodríguez PMHNP-BC Work Phone: [facility] 11-09-2024 07:55-0400 Diastolic blood pressure 70 mm[Hg] Kwame Rodríguez PMHNP-BC Work Phone: [facility] 11-09-2024 07:55-0400 Heart rate 67 /min Kwame Rodríguez PMHNP-BC Work Phone: [facility] 11-09-2024 07:55-0400 Systolic blood pressure 110 mm[Hg] Kwame Rodríguez PMHNP-BC Work Phone: [facility] 10-19-2024 07:49-0400 Body mass index (BMI) [Ratio] 27.53 kg/m2 Kwame Rodríguez PMHNP-BC Work Phone: [facility] 10-19-2024 07:49-0400 Body weight 92.08 kg Kwame Rodríguez PMHNP-BC Work Phone: [facility] 10-19-2024 07:49-0400 Diastolic blood pressure 69 mm[Hg] Kwame Rodríguez PMHNP-BC Work Phone: [facility] 10-19-2024 07:49-0400 Heart rate 68 /min Kwame Rodríguez PMHNP-BC Work Phone: [facility] 10-19-2024 07:49-0400 Systolic blood pressure 112 mm[Hg] Kwame Rodríguez PMHNP-BC Work Phone: [facility] 09-14-2024 10:30-0500 Body mass index (BMI) [Ratio] 28.48 kg/m2 Kwame Rodríguez PMHNP-BC Work Phone: [facility] 09-14-2024 10:30-0500 Body weight 95.25 kg Kwame Rodríguez PMHNP-BC Work Phone: [facility] 09-14-2024 10:30-0500 Diastolic blood pressure 64 mm[Hg] Kwame Rodríguez PMHNP-BC Work Phone: [facility] 09-14-2024 10:30-0500 Heart rate 67 /min Kwame Rodríguez PMHNP-BC Work Phone: [facility] 09-14-2024 10:30-0500 Systolic blood pressure 110 mm[Hg] Kwame Rodríguez PMHNP-BC Work Phone: [facility] 08-10-2024 09:18-0500 Body mass index (BMI) [Ratio] 28.48 kg/m2 Kwame Rodríguez CIVIL MANAGER Work Phone: [facility] 08-10-2024 09:18-0500 Body weight 95.25 kg Kwame Rodríguez CIVIL MANAGER Work Phone: [facility] 08-10-2024 09:18-0500 Diastolic blood pressure 72 mm[Hg] Kwame Rodríguez CIVIL MANAGER Work Phone: [facility] 08-10-2024 09:18-0500 Heart rate 74 /min Kwame Rodríguez CIVIL MANAGER Work Phone: [facility] 08-10-2024 09:18-0500 Systolic blood pressure 126 mm[Hg] Kwame Rodríguez CIVIL MANAGER Work Phone: [facility] 07-19-2024 08:52-0500 Body mass index (BMI) [Ratio] 28.48 kg/m2 Kwame Rodríguez CIVIL MANAGER Work Phone: [facility] 07-19-2024 08:52-0500 Body weight 95.25 kg Kwame Rodríguez CIVIL MANAGER Work Phone: [facility] 07-19-2024 08:52-0500 Diastolic blood pressure 82 mm[Hg] Kwame Rodríguez CIVIL MANAGER Work Phone: [facility] 07-19-2024 08:52-0500 Heart rate 68 /min Kwame Rodríguez CIVIL MANAGER Work Phone: [facility] 07-19-2024 08:52-0500 Systolic blood pressure 112 mm[Hg] Kwame Rodríguez CIVIL MANAGER Work Phone: [facility] 06-29-2024 08:48-0500 Body height 182.9 cm Jnkalee Mccullough DO Work Phone: [facility] 06-29-2024 08:48-0500 Body mass index (BMI) [Ratio] 28.54 kg/m2 Jn Cecilia DO Work Phone: [facility] 06-29-2024 08:48-0500 Body weight 95.44 kg Jn Mccullough DO Work Phone: [facility] 06-29-2024 08:48-0500 Diastolic blood pressure 68 mm[Hg] Jn Cecilia DO Work Phone: [facility] 06-29-2024 08:48-0500 Heart rate 78 /min Jn Cecilia DO Work Phone: [facility] 06-29-2024 08:48-0500 Respiratory rate 12 /min Jn Cecilia DO Work Phone: [facility] 06-29-2024 08:48-0500 SaO2% (BldA) [Mass fraction] 99 % Jn Mccullough DO Work Phone: [facility] 06-29-2024 08:48-0500 Systolic blood pressure 122 mm[Hg] Jn Mccullough DO Work Phone: [facility] 06-22-2024 08:14-0500 Body mass index (BMI) [Ratio] 28.48 kg/m2 Kwame Rodríguez CIVIL MANAGER Work Phone: [facility] 06-22-2024 08:14-0500 Body weight 95.25 kg Kwame Rodríguez CIVIL MANAGER Work Phone: [facility] 06-22-2024 08:14-0500 Diastolic blood pressure 82 mm[Hg] Kwame Rodríguez CIVIL MANAGER Work Phone: [facility] 06-22-2024 08:14-0500 Heart rate 73 /min Kwame Rodríguez CIVIL MANAGER Work Phone: [facility] 06-22-2024 08:14-0500 Systolic blood pressure 116 mm[Hg] Kwame Rodríguez CIVIL MANAGER Work Phone: [facility] 06-13-2024 08:44-0500 Body height 182.9 cm Georgia Tamica CIVIL MANAGER Work Phone: [facility] 06-13-2024 08:44-0500 Body mass index (BMI) [Ratio] 28.21 kg/m2 Georgia Davey CIVIL MANAGER Work Phone: [facility] 06-13-2024 08:44-0500 Body temperature 97.81 [degF] Georgia Davey CIVIL MANAGER Work Phone: [facility] 06-13-2024 08:44-0500 Body weight 94.35 kg Georgia Davey CIVIL MANAGER Work Phone: [facility] 06-13-2024 08:44-0500 Diastolic blood pressure 74 mm[Hg] Georgia Davey CIVIL MANAGER Work Phone: [facility] 06-13-2024 08:44-0500 Heart rate 78 /min Georgia Davey CIVIL MANAGER Work Phone: [facility] 06-13-2024 08:44-0500 Respiratory rate 20 /min Georgia Davey CIVIL MANAGER Work Phone: [facility] 06-13-2024 08:44-0500 SaO2% (BldA) [Mass fraction] 96 % Georgia Davey CIVIL MANAGER Work Phone: [facility] 06-13-2024 08:44-0500 Systolic blood pressure 110 mm[Hg] Georgia Davey CIVIL MANAGER Work Phone: [facility] 06-02-2024 08:49-0500 Body mass index (BMI) [Ratio] 28.89 kg/m2 Jim Lees CIVIL MANAGER Work Phone: [facility] 06-02-2024 08:49-0500 Body weight 96.62 kg Jim Lees CIVIL MANAGER Work Phone: [facility] 06-02-2024 08:49-0500 Diastolic blood pressure 83 mm[Hg] Jim Lees CIVIL MANAGER Work Phone: [facility] 06-02-2024 08:49-0500 Heart rate 96 /min Jim Lees CIVIL MANAGER Work Phone: [facility] 06-02-2024 08:49-0500 Systolic blood pressure 142 mm[Hg] Jim Lees CIVIL MANAGER Work Phone: [facility] 05-05-2024 07:51-0400 Body height 182.9 cm Christopher Jamison DO Work Phone: [facility] 05-05-2024 07:51-0400 Body mass index (BMI) [Ratio] 28.86 kg/m2 Christopher Jamison DO Work Phone: [facility] 05-05-2024 07:51-0400 Body weight 96.53 kg Christopher Jamison DO Work Phone: [facility] 05-05-2024 07:51-0400 Diastolic blood pressure 82 mm[Hg] Christopher Jamison DO Work Phone: [facility] 05-05-2024 07:51-0400 Heart rate 84 /min Christopher Jamison DO Work Phone: [facility] 05-05-2024 07:51-0400 SaO2% (BldA) [Mass fraction] 97 % Christopher Jamison DO Work Phone: [facility] 05-05-2024 07:51-0400 Systolic blood pressure 134 mm[Hg] Christopher Jamison DO Work Phone: [facility] 04-19-2024 11:15-0400 Body height 182.9 cm Georgia Davey CIVIL MANAGER Work Phone: [facility] 04-19-2024 11:15-0400 Body mass index (BMI) [Ratio] 28.48 kg/m2 Georgia Davey CIVIL MANAGER Work Phone: [facility] 04-19-2024 11:15-0400 Body temperature 98.71 [degF] Georgia Davey CIVIL MANAGER Work Phone: [facility] 04-19-2024 11:15-0400 Body weight 95.25 kg Georgia Davey CIVIL MANAGER Work Phone: [facility] 04-19-2024 11:15-0400 Diastolic blood pressure 72 mm[Hg] Georgia Davey CIVIL MANAGER Work Phone: [facility] 04-19-2024 11:15-0400 Heart rate 86 /min Georgia Zuñigaz CIVIL MANAGER Work Phone: [facility] 04-19-2024 11:15-0400 Respiratory rate 18 /min Georgia Zuñigaz CIVIL MANAGER Work Phone: [facility] 04-19-2024 11:15-0400 SaO2% (BldA) [Mass fraction] 97 % Georgia Zuñigaz CIVIL MANAGER Work Phone: [facility] 04-19-2024 11:15-0400 Systolic blood pressure 110 mm[Hg] Georgia Zuñigaz CIVIL MANAGER Work Phone: [facility] Healthcare Encounters Encounter Date Encounter Type [...] OT/PT/Speech Visit Myriam Luis PT Work Phone: [facility] Comment on above: Functional movement disorder; Dyskinesia, tardive Start: 02-15-2025 End: 02-15-2025 Patient encounter procedure Stevo Garcia PSYD Work Phone: [facility] Comment on above: Adjustment disorder with mixed anxiety and depressed mood (Primary Dx); Functional movement disorder; Dyskinesia, tardive Start: 02-15-2025 End: 02-15-2025 ambulatory STEVO GARCIA Facility:[facility] Start: 02-03-2025 End: 02-03-2025 E-mail encounter from caregiver Willow Ramos MD Work Phone: [facility] Start: 02-03-2025 End: 02-03-2025 Office outpatient new 45 minutes Olena Gomez MD Work Phone: [facility] Comment on above: Functional movement disorder (Primary Dx); Dyskinesia, tardive; Drug-induced parkinsonism (HCC) Start: 02-03-2025 End: 02-03-2025 ambulatory Willow Ramos MD Work Phone: [facility] Start: 01-25-2025 End: 01-25-2025 Office outpatient visit 25 minutes Kwame Rodríguez [facility] Work Phone: [facility] Comment on above: Current episode of m ajor depressive disorder without prior episode, unspecified depression episode severity ; Bipolar 2 disorder (HCC); SAMRA (generalized anxiety disorder) ; Tremor; Tardive dyskinesia Start: 01-25-2025 End: 01-25-2025 ambulatory KWAME RODRÍGUEZ Not Available Start: 01-24-2025 End: 01-24-2025 Bamboo flowsheet Georgia Aichholz [employer]IVIL MANAGER Work Phone: [facility] Start: 01-24-2025 End: 01-24-2025 Bamboo flowsheet Georgia Aichholz CIVIL MANAGER Work Phone: [facility] Start: 01-24-2025 End: 01-24-2025 Office outpatient visit 25 minutes Georgia Racielholz CIVIL MANAGER Work Phone: [facility] Comment on [...] 08-22-2024 End: 08-22-2024 Bamboo flowsheet Armen Valenciai DOLL REPA[employer]ER [facility] Start: 08-22-2024 End: 08-22-2024 Bamboo flowsheet Armen Addisonicki DOLL REPAIRER [facility] Start: 08-22-2024 End: 08-22-2024 ambulatory ARMEN ADDISONICKI Not Available Start: 08-10-2024 End: 08-10-2024 Bamboo flowsheet Kwame Keyeston CIVIL MANAGER Work Phone: [facility] Start: 08-10-2024 End: 08-10-2024 Bamboo flowsheet Kwame Rodríguez CIVIL MANAGER Work Phone: [facility] Start: 08-10-2024 End: 08-10-2024 Office outpatient visit 25 minutes Kwame Rodríguez CIVIL MA[employer]GER Work Phone: [facility] Comment on above: Bipolar 2 disorder ( CMS/HCC); Tardive dyskinesia Start: 08-10-2024 End: 08-10-2024 ambulatory KWAME RODRÍGUEZ Not Available Start: 07-19-2024 End: 07-19-2024 Bamboo flowsheet Kwame Rodríguez CIVIL MANAGER Work Phone: [facility] Start: 07-19-2024 End: 07-19-2024 Bamboo flowsheet Kwame Rodríguez CIVIL MANAGER Work Phone: [facility] Start: 07-19-2024 End: 07-19-2024 Office outpatient visit 25 minutes Kwmae Rodríguez CIVIL MANAGER Work Phone: [facility] Comment on above: [...] 06-22-2024 End: 06-22-2024 Bamboo flowsheet Kwamekelly Rodríguez CIVIL MANAGER Work Phone: [facility] Start: 06-22-2024 End: 06-22-2024 Bamboo flowsheet Kwamekelly Rodríguez CIVIL MANAGER Work Phone: [facility] Start: 06-22-2024 End: 06-22-2024 Office outpatient visit 40 minutes Kwame Rodríguez CIVIL MANAGER Work Phone: [facility] Comment on above: Bipolar 2 disorder ( CMS/HCC); Tardive dyskinesia Start: 06-22-2024 End: 06-22-2024 ambulatory KWAMEKELLY RODRÍGUEZ Not Available Start: 06-13-2024 End: 06-13-2024 Bamboo flowsheet Georgia Davey CIVIL MANAGER Work Phone: [facility] Start: 06-13-2024 End: 06-13-2024 Bamboo flowsheet Georgia Davey CIVIL MANAGER Work Phone: [facility] Start: 06-13-2024 End: 11-30-2024 Patient encounter status Georgia Davey CIVIL MANAGER Work Phone: [facility] Start: 06-13-2024 End: 06-13-2024 Periodic preventive med est patient 40-64yrs Georgia Davey CIVIL MANAGER Work Phone: [facility] Comment on above: Encounter for wellne ss examination in adult (Primary Dx); Tremor, unspecified; Overweight (BMI 25.0-29.9); Bipolar 1 disorder ([facility]); Rash Start: 06-13-2024 End: 06-13-2024 ambulatory GEORGIA DAVEY Not Available Start: 06-02-2024 End: 06-02-2024 Bamboo flowsheet Jim Lees CIVIL MANAGER Work Phone: [facility] Start: 06-02-2024 End: 06-02-2024 Bamboo flowsheet Jim Lees CIVIL MANAGER Work Phone: [facility] Start: 06-02-2024 End: 06-02-2024 ambulatory JIMLe LEES Not Available Start: 06-02-2024 End: 06-02-2024 Office outpatient visit 25 minutes Jimle Lees CIVIL MANAGER Work Phone: [facility] Comment [...] 04-19-2024 End: 04-19-2024 Bamboo flowsheet Georgia Davey CIVIL MANAGER Work Phone: [facility] Start: 04-19-2024 End: 04-19-2024 Bamboo flowsheet Georgia Davey CIVIL MANAGER Work Phone: [facility] Start: 04-19-2024 End: 04-19-2024 Office outpatient visit 25 minutes Georgia Schradervidalsarah CIVIL MANAGER Work Phone: [facility] Comment on [...] Start: 08-28-2023 End: 08-28-2023 ambulatory Gaudencio Solomon MINK FARMER [facility] Comment on above: Internal derangement of right shoulder (Primary Dx); S/P arthroscopy of right shoulder Start: 08-26-2023 Bamboo flowsheet Gaudencio Solomon PT A [facility] Start: 08-26-2023 Bamboo flowsheet Gaudencio Solomon PT A [facility] Start: 08-26-2023 End: 08-26-2023 ambulatory Gaudencio Solomon MINK FARMER [facility] Comment on above: Internal derangement of right shoulder (Primary Dx); S/P arthroscopy of right shoulder Start: 08-24-2023 Bamboo flowsheet Desire Maza P TA [facility] Start: 08-24-2023 Bamboo flowsheet Desire Maza P TA [facility] Start: 08-24-2023 End: 08-24-2023 ambulatory Desire Maza MINK FARMER [facility] Comment on above: Internal derangement of right shoulder (Primary Dx); S/P arthroscopy of right shoulder Start: 03-16-2023 Chart abstracting Gio BLOOD Work Phone: [facility] Start: 04-25-2022 Encounter for genera l adult medical examination without abnormal findings [facility] Start: 04-23-2022 End: 04-24-2022 [facility] Start: 04-23-2022 End: 04-24-2022 Encounter for general adult medical examination without abnormal findings [facility] Start: 10-07-2021 ambulatory MADALYN DAVEY Facil ity:H1 Start: 08-30-2021 End: 08-31-2021 ambulatory MADALYN [facility]IDALS[facility]ah Facility:[facility]1 Start: 08-20-2021 End: 08-21-2021 ambulatory [facility] Procedures Date Procedure Procedure Detail Performing Clinician Start: 08-22-2024 End: 08-22-2024 Psychiatric diagnostic evaluation Bipolar 2 disorder (CMS/HCC) Armen Hernández LPC Comment on above: Bipolar 2 disorder ( CMS/HCC) Plan of Treatment Date Care Activity Detail Author Start: 08-07-2025 End: 08-07-2025 Patient encounter procedure 08/07/2025 3:30 PM EST [facility] [address] [facility] [address] [place] [address] Kwame Rod[facility]guez [facility] [address] [facility] [address] [place] [address] [facility] Start: 06-06-2025 End: 06-06-2025 Patient encounter procedure 06/06/2025 9:00 AM EST Office Visit [facility] [address] [place] [address] Sudha Soto, LICENSED OPTICIAN.WORD PROCESSOR [address] [id number] follow up [facility] Comment on above: follow up Start: 04-10-2025 End: 04-10-2025 Patient encounter procedure 04/10/2025 9:40 AM EDT Office Visit [facility] [address] [place] [address] Georgia Davey, JA [address] [place] [address] [facility] Start: 03-29-2025 End: 03-29-2025 Patient encounter procedure 03/29/2025 8:00 AM EDT Office Visit [facility] [place] [facility] [address] [facility] [place] [address] Kwame Rodríguez, PMHNP-BC [address] [facility] [address] [place] [address] [facility] [place] [facility] Start: 03-20-2025 Influenza vaccination Influenza Vacc ine (#1) [facility] Start: 02-22-2025 End: 02-22-2025 Patient encounter procedure 02/22/2025 8:00 AM EDT Office Visit [facility] [place] [facility] [address] [facility] [address] [place] [address] Kwame Rodríguez, PMHNP-BC [address] [facility] [address] [place] [address] Arrived [facility] [place] [facility] Comment on above: Arrived Start: 02-20-2025 End: 02-20-2025 Patient encounter procedure 02/20/2025 8:00 AM EDT Office Visit [facility] [address] [facility] [address] [place] [address] Kwame Rodríguez, PMHNP-BC [address] [facility] [address] [place] [address] [facility] Start: 02-16-2025 End: 02-16-2025 OT/PT/Speech Visit 02/16/2025 7:45 AM EDT OT/PT/Speech Visit [facility] [address] [place] [address] [place] [address] [place] [address] 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]; Dyskinesia, tardive [G24.01] [facility] Comment on above: FND=Functional movem ent disorder [G25.9]; Dyskinesia, tardive [G24.01] Start: 02-15-2025 End: 02-15-2025 Patient encounter procedure 02/15/2025 8:00 AM EDT Office Visit [facility] [address] [place] [address] Stevo Garcia PSYD [address] [place] [address] 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]; Dyskinesia, tardive [G24.01] [facility] Comment on above: 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]; Dyskinesia, tardive [G24.01] Start: 01-25-2025 End: 01-25-2025 Patient encounter procedure 01/25/2025 8:00 AM EDT Office Visit [facility] [address] [facility] [address] [place] [address] Kw[facility] [address] [facility] [address] [place] [address] [facility] Start: 01-24-2025 End: 01-24-2025 Patient encounter procedure 01/24/2025 8:40 AM EDT Office Visit [facility] [address] [place] [address] Georgia Davey, JA [address] [place] [id number] Weight loss, unintentional (Primary Dx) [facility] Comment on above: Weight loss, uninten tional (Primary Dx) Start: 12-08-2024 End: 12-08-2024 Patient encounter procedure 12/08/2024 8:40 AM EDT [facility] [address] [place] [address] Georgia Davey, JA [address] [place] [address] [facility] Start: 11-30-2024 End: 11-30-2024 Patient encounter procedure [facility] Comment on above: Bipolar 2 disorder ( CMS/HCC); SAMRA (generalized anxiety disorder) (CMS/HCC); Tremor; Tardive dyskinesia Start: 11-09-2024 End: 11-09-2024 Patient encounter procedure [facility] Comment on above: Bipolar 2 disorder ( CMS/HCC); SAMRA (generalized anxiety disorder) (CMS/HCC); Tardive dyskinesia; Tremor Start: 11-02-2024 End: 11-02-2024 Patient encounter procedure 11/02/2024 8:00 AM EDT Office Visit [facility] [address] [facility] [address] [place] [address] Kwame Rodríguez HNP-BC [address] [facility] [address] [place] [address] [facility] Start: 10-19-2024 End: 10-19-2024 Patient encounter procedure [facility] Comment on above: Arrived Start: 10-05-2024 End: 10-05-2024 Patient encounter procedure 10/05/2024 8:00 AM EDT Office Visit [facility] [address] [facility] [address] [place] [address] Kwame Rodríguez HNP-BC [address] [facility] [address] [place] [address] [facility] Start: 09-28-2024 End: 09-28-2024 Social Work 09/28/2024 9:30 AM EDT Social Work [facility] [address] [place] [address] Armen Hernández, KIM [facility] Start: 09-14-2024 End: 09-14-2024 Patient encounter procedure 09/14/2024 10:30 AM EST Office Visit [facility] [address] [place] [address] Kwame Rodríguez, PMHNP-BC [address] [place] [address] Bipolar 2 disorder (CMS/HCC); Tardive dyskinesia; Tremor [facility] Comment on above: Bipolar 2 disorder ( CMS/HCC); Tardive dyskinesia; Tremor Start: 09-07-2024 End: 09-07-2024 Patient encounter procedure 09/07/2024 10:00 AM EST Office Visit [facility] [address] [place] [address] Kwame Rodríguez, CIVIL MANAGER [address] [place] [address] [facility] Start: 08-22-2024 End: 08-22-2024 Social Work [facility] Comment on above: Arrived Start: 08-10-2024 End: 08-10-2024 Patient encounter procedure [facility] Comment on above: Bipolar 2 disorder ( CMS/HCC); Tardive dyskinesia Start: 07-25-2024 End: 07-25-2024 Social Work 07/25/2024 9:30 AM EST Social Work [facility] [address] [place] [address] Armen Hernández, KIM [facility] Start: 07-19-2024 End: 07-19-2024 Patient encounter procedure [facility] Comment on above: Bipolar 2 disorder ( [facility]); Tardive dyskinesia Start: 06-29-2024 End: 06-29-2024 Patient [...] in adult Expected: 06/13/2024 (Approximate), Expires: 06/13/2025 [facility] Comment on above: Expected: 06/13/2024 (Approximate), Expires: 06/13/2025 Start: 06-13-2024 End: 06-13-2025 Lipid 1996 panel - Serum or Plasma Lipid panel Lab Routine Encounter for wellness examination in adult Expected: 06/13/2024 (Approximate), Expires: 06/13/2025 [facility] Comment on above: Expected: 06/13/2024 [...] [facility] Comment on above: Encounter for [facility] ss examination in adult (Primary Dx); Tremor, unspecified; Overweight (BMI 25.0-29.9); Bipolar 1 disorder ([facility]) Start: 06-02-2024 End: 06-02-2024 Patient encounter procedure 06/02/2024 8:40 AM EST Office Visit [facility] [address] [place] [address] Jim Lees NP [address] [place] [address] [facility] [place] [facility] Start: 05-05-2024 End: 05-05-2025 MR Brain WO and W contrast IV MR brain w and wo contrast routine Imaging Routine Ataxia Expected: 05/05/2024, Expires: 05/05/2025 [facility] Work Phone: Comment on above: Expected: 05/05/2024 , Expires: 05/05/2025 Start: 05-05-2024 End: 05-05-2024 Patient encounter procedure 05/05/2024 8:00 AM EDT Office Visit [facility] [address] [place] [address] Nadia Swift DO [address] [place], [place] [id number] Tremor, unspecified [facility] [place] [facility] Comment on above: Tremor, unspecified Start: 04-19-2024 End: 04-19-2024 Patient encounter procedure 04/19/2024 11:00 AM EDT Office Visit [facility] [address] [place] [phone] Georgia Davey NP [address] [place] [address] Arrived [facility] Comment on above: Arrived Start: 03-20-2024 Covid-19 Vaccine ( season) Covid-19 Vaccine ( season) [facility] Start: 09-11-2023 End: 09-11-2023 Patient encounter procedure 09/11/2023 10:45 AM EST Office Visit [facility] [address] [place] [address] Gio Nova, PA [address] [place] [address] [facility] Start: 09-11-2023 End: 09-11-2023 ambulatory 09/11/2023 9:30 AM EST Treatment [facility] [address] [place] [address] Gaudencio Solomon PTA [facility] Start: 09-09-2023 End: 09-09-2023 ambulatory 09/09/2023 11:00 AM EST Treatment [facility] [address] [place] [address] Mikey Wilson, PT [address] [place] [address] [facility] Start: 09-08-2023 End: 09-08-2023 Patient encounter procedure 09/08/2023 9:00 AM EST Office Visit [facility] [address] [place] [address] Georgia Davey NP [address] [place] [address] [facility] Start: 09-07-2023 End: 09-07-2023 ambulatory [facility] Start: 09-07-2023 End: 09-07-2023 Patient encounter procedure 09/07/2023 10:00 AM EST Office Visit [facility] [address] [place] [address] Gio Nova PA [address] [facility] [address] [place] [address] [facility] Start: 09-04-2023 End: 09-04-2023 ambulatory 09/04/2023 11:00 AM EST Treatment [facility] [address] [facility] [address] [place] [address] Gaudencio Solomon PTA [facility] Start: 09-02-2023 End: 09-02-2023 ambulatory [facility] Start: 08-31-2023 End: 08-31-2023 ambulatory [facility] Comment on above: Arrived Start: 08-28-2023 End: 08-28-2023 ambulatory 08/28/2023 11:00 AM EST Treatment [facility] [address] [facility] [address] [place] [address] Gaudencio Solomon PTA [facility] Start: 08-26-2023 End: 08-26-2023 ambulatory [facility] Comment on above: Internal derangement of right shoulder (Primary Dx); S/P arthroscopy of right shoulder Start: 08-24-2023 End: 08-24-2023 ambulatory 08/24/2023 10:00 AM EST Treatment [facility] [address] [facility] [address] [place] [address] Desire Maza PTA Arrived [facility] Comment on above: Arrived Start: 03-20-2023 Influenza vaccination Influenza Vacc ine (#1) [facility] Start: 2017 Lipid panel Lipid Screening [facility] Start: 2009 HPV Vaccine (1 - 3-d ose SCDM series) HPV Vaccine (1 - 3-dose SCDM series) [facility] Start: 2001 Hepatitis B Vaccine (1 of 3 - 19+ 3-dose series) Hepatitis B Vaccine (1 of 3 - 19+ 3-dose series) [facility] Start: 2001 Urine microalbumin profile DTaP,Tdap,Td Vaccine (1 - Tdap) [facility] Start: 2000 Anxiety Screening Anxiety Screening [facility] Start: 2000 Depression Screening Depression Scre keely [facility] Start: 2000 Hepatitis C screening Hepatitis C Sc jenaro [facility] Start: 2000 HIV screening HIV Screening Nguyễn vergara [facility] Payers Date Payer Category Payer Private Health Insurance [id number] 2022 Unknown [employer] [id number] 2022-Present [phone] [address] [address] [place] [address] [id number] 2022 Unknown [id number] 1982 Unknown [id number] 2.16840.1.374042.3.579. 2.593 1982 Unknown [id number] 2.16840.1.927497.3.579. 2.593 1982 Unknown [id number] 2.16840.1.673271.3.579. 2.593 1982 Unknown [id number] 2.16840.1.200514.3.579. 2.593 1982 Unknown [id number] 2.16840.1.852637.3.579. 2.1259 1982 Unknown [id number] 2.16.840.1.040835.3.579. 2.1259 1982 Unknown [id number] 2.16.840.1.142604.3.579. 2.1259 1982 Unknown [id number] 2.16840.1.106053.3.579. 2.1259 1982 Unknown [id number] 2.16.840.1.639175.3.579. 2.1259 1982 Unknown [id number] 2.16840.1.878918.3.579. 2.1258 1982 Unknown [id number] 2.16840.1.395919.3.579. 2.1258 1982 Unknown [id number] 2.16840.1.241576.3.579. 2.1258 1982 Unknown [id number] 2.16840.1.048104.3.579. 2.1258 1982 Unknown [id number] 2.840.1.991802.3.579. 2.1258 1982 Unknown [id number] 2.840.1.106506.3.579. 2.1258 1982 Unknown [id number] 2.840.1.943761.3.579. 2.1258 1982 Unknown [id number] 2.840.1.514352.3.579. 2.1258 1982 Unknown [id number] 2.840.1.725905.3.579. 2.1258 1982 Unknown [id number] 2.840.1.959469.3.579. 2.1258 1982 Unknown [id number] 2.16840.1.803686.3.579. 2.1258 1982 Unknown [id number] .840.1.305604.3.579. 2.1258 1982 Unknown [id number] .840.1.764718.3.579. 2.1258 1982 Unknown [id number] 840.1.756598.3.579. 2.1258 1982 Unknown [id number] .16840.1.628965.3.579. 2.727 1959 Self-pay [id number] 1959 Unknown [id number] Social History Date Type Detail Facility Start: 03-16-2023 End: 06-22-2024 Tobacco smoking status [facility] Never smoked tobacco [facility] Start: [...] to any clubs or organizations such as faith groups, unions, fraternal or athletic groups, or [...] Healthcare Start: 02-03-2025 Alcohol Comment solomon [facility] Clinical Notes 08-31-2023 to 03-29-2025 Kwame MAIKEL Rodríguez-BC - 03/29/2025 8:20 AM BRADLEYROBERmarcelaarcelia Rodríguez, ISMAEL - 03/29/2025 8:00 AM Lolaarcelia Rodríguez, MAIKEL-BC - 02/22/2025 8:00 AM Myriam Gorman, PT - 02/16/2025 7:49 AM EDT Note Date & Type Note Facility 03-29-2025 History of Presen t illness Narrative Rx for Ingrezza resent to [facility] documented in this encounter [facility] 03-29-2025 History of Presen t illness Narrative Images from the original note were not included. HPI: Tahira Agustin is a 44 y.o. male with a history of bipolar affective disorder, MDD, SAMRA, tremors, and tardive dyskinesia. Patient is here today for follow-up via telehealth. Location of patient: Home; located in [place] Location of provider: Office; located in [place], [place] Patient seen via: [employer] Telehealth; audio and video utilized Reason for [...] of multiple sclerosis Hx of psychiatric hospitalization [facility] 1 south in his [...] as described above. documented in this encounter [facility] 02-22-2025 History of Presen t [...] assessment. Patient saw movement disorder specialist at [facility] on 02/03. 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 He states if he gets this, he will be doing 4 years of swing shift and schooling to get his [employer] card. He states stress has decreased at [...] of multiple sclerosis Hx of psychiatric hospitalization [facility] 1 south in his [...] will continue to follow with specialists at [facility] for additional care of his [...] as described above. documented in this encounter [facility] 02-16-2025 Note HNO ID: [id number] Author: MYRIAM LUIS PT Service: ? 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 02-15-2025 Note HNO ID: [id number] Author: STEVO GARCIA PSYD Service: ? Author Type: Physician Type: Progress Notes Filed: 03/06/2025 22:38 Note Text: [facility] Clinical [facility] Psychology Evaluation Time of Service: 8:05 [...] Social History: Mr. Agustin was raised in [place]. He has one half brother who is [...] recommended that the (more content not included)... [facility] 02-15-2025 History of Presen t illness Narrative [facility] Clinical [facility] Psychology Evaluation Time of Service: 8:05 [...] Social History: Mr. Agustin was raised in [place]. He has one half brother who is [...] Stevo Garcia Psy.D. Staff, [facility] documented in this encounter [facility] 02-03-2025 Telephone encounter Note FMD welcome message emailed to patient. [facility] 02-03-2025 Miscellaneous Notes FMD welcome message emailed to patient. documented in this encounter [facility] 02-03-2025 Instructions Olena Gomez MD [...] If urgent issues arise, contact us via [employer] for guidance or to schedule an earlier [...] these. Physical, Occupational, and/or Speech Therapy Call: [phone] or schedule through a ticket in [employer]. Psychology Therapy Call: [phone], ask to be scheduled with Dr. Shirin Morgan, Dr. Elizabeth Barrera, or Dr. Stevo Garcia. Virtual Shared Medical Appointment for FMD Education Call: [phone] or schedule through a ticket in [employer] Follow-up with Cheyenne Ortiz PA-C, who will help support you through your care. Call: [phone] or schedule through a ticket in [employer]. How can I learn more about FND? www.neurosymptoms.org www.fndhope.org documented in this encounter [facility] 02-03-2025 History of Presen t [...] tardive dyskinesia and tremor. He is from [facility] and follows with a local psychiatry team. Chart Review: Per records he is currently on fluoxetine, lamotrigine, propranolol, and valbenazine. He saw his psychiatry CIVIL MANAGER on 01/25/2025 where he asked for a [...] note at this visit he observed abnormal frnlet-hn-wabn testing indicating ataxia for which MRI brain [...] Plantar: downgoing Left Plantar: downgoing Coordination Right: Pliemu-in-symq normal. Rapid alternating movement normal. Sych-ko-odrk normal.Left: Eoyosz-ey-byct normal. Rapid alternating movement normal. Fsip-mp-uumw normal. Mild tremulousness in BL hands (L>R) [...] Associate Staff Movement disorders [facility] Olena Gomez MD MS Movement Disorder Fellow, PGY-6 [facility] documented in this encounter [facility] 02-03-2025 Note HNO ID: [id number] Author: WILLOW RAMOS MD Service: ? Author [...] tardive dyskinesia and tremor. He is from [facility] and follows with a local psychiatry team. Chart Review: Per records he is currently on fluoxetine, lamotrigine, propranolol, and valbenazine. He saw his psychiatry CIVIL MANAGER on 01/25/2025 where he asked for a [...] note at this visit he observed abnormal zuktry-yt-sjqw testing indicating ataxia for which MRI brain [...] Genitourinary: (+) n (more content not included)... [facility] 01-25-2025 History of Presen t illness Narrative [...] went on vacation with his family to [place], [place]. He states he was able to drive down there and back without any issues or exacerbation of his tremors. He is seeing movement disorder specialist at [facility] on February 03. He is [...] of multiple sclerosis Hx of psychiatric hospitalization [facility] 1 south in his [...] NP as Referring Physician (Family Medicine) [facility] ([facility] Health) Nadia Swift [...] addition of Prozac. He is meeting with [facility] movement disorder specialist on February [...] as described above. documented in this encounter [facility] 01-24-2025 History of Presen t [...] has an appt with movement specialist at [facility] on 02/03/25 SUBJECTIVE: MEDICATIONS: Current Outpatient Medications [...] of multiple sclerosis Hx of psychiatric hospitalization [facility] 1 south in his [...] since no gallbladder documented in this encounter [facility] 11-30-2024 History of Presen t [...] appointment with a movement disorder specialist at [facility] on February 03. SUBJECTIVE: PAST MEDICAL HISTORY: Past Medical History: Diagnosis Date Arthralgia Asymptomatic microscopic hematuria Bipolar disorder Bursitis of shoulder, right Cyst of tendon sheath Dyspnea 09/08/2023 Family history of multiple sclerosis Hx of psychiatric hospitalization [facility] 1 south in his [...] as Neurologist (Neurology) Armen Hernández LPC as Auxiliary Power Equipment Operator (Behavioral Health) PSYCHIATRIC REVIEW OF SYMPTOMS AND [...] evaluation so they will keep appointment with [facility] that is scheduled in January. [...] as described above. documented in this encounter [facility] 11-09-2024 History of Presen t [...] of multiple sclerosis Hx of psychiatric hospitalization [facility] in his 20s Lumbar back pain [...] as Neurologist (Neurology) Armen Hernández LPC as Auxiliary Power Equipment Operator (Behavioral Health) PSYCHIATRIC REVIEW OF SYMPTOMS AND [...] by mouth Daily SAMRA (generalized anxiety disorder) ([facility]) Tardive dyskinesia Tremor - propranolol LA (Inderal [...] as described above. documented in this encounter [facility] 10-19-2024 History of Presen t [...] of multiple sclerosis Hx of psychiatric hospitalization [facility] 1 south in his [...] as Neurologist (Neurology) Armen Hernández LPC as Auxiliary Power Equipment Operator (Behavioral Health) PSYCHIATRIC REVIEW OF SYMPTOMS AND [...] mg by mouth Daily Bipolar 2 disorder ([facility]) - lamoTRIgine (LaMICtal) 25 MG tablet; Take 1 tablet (25 mg) by mouth Daily for 14 days, THEN 2 tablets (50 mg) Daily for 14 days. SAMRA (generalized anxiety disorder) ([facility]) Treatment Plan/Recommendations: - Increase Ingrezza to 60 [...] as described above. documented in this encounter [facility] 10-17-2024 Telephone encounter Note Spoke to patient. He stopped Caplyta on Thursday. Reports that side effects have improved a little but still having some. He is agreeable to come in Thursday to follow-up. Informed him to stay off Caplyta until we see him. Patient verbalized understanding. [facility] 10-17-2024 Miscellaneous Notes Spoke to [...] still experiencing symptoms. documented in this encounter [facility] 10-17-2024 Telephone encounter Note Patient called in stating that after taking his higher dose of Caplyta he started experiencing excessive blinking, body twitches, and high anxiety. Patient stated this started right after taking his increased dose and his symptoms were really bad on 10/13. Patient stated he stopped the medication on 10/14 and is still experiencing symptoms. [facility] 09-14-2024 History of Presen t [...] of multiple sclerosis Hx of psychiatric hospitalization [facility] 1 south in his [...] as Neurologist (Neurology) Armen Hernández LPC as Auxiliary Power Equipment Operator (Behavioral Health) PSYCHIATRIC REVIEW OF SYMPTOMS AND [...] as described above. documented in this encounter [facility] 08-10-2024 History of Presen t [...] of multiple sclerosis Hx of psychiatric hospitalization [facility] 1 south in his [...] to age Memory/Concentration Short term intact and tube fitter intact Insight/Judgement Good OBJECTIVE: Visit Vitals BP [...] orders for this visit: Bipolar 2 disorder ([facility]) - ARIPiprazole (Abilify) 10 MG tablet; Take [...] as described above. documented in this encounter [facility] 07-19-2024 History of Presen t [...] of multiple sclerosis Hx of psychiatric hospitalization [address] in his 20s Lumbar back pain [...] to age Memory/Concentration Short term intact and nursing home intact Insight/Judgement Fair OBJECTIVE: Visit Vitals BP [...] orders for this visit: Bipolar 2 disorder ([facility]) Tardive dyskinesia Treatment Plan/Recommendations: - Stop Austedo [...] as described above. documented in this encounter [facility] 06-29-2024 History of Presen t [...] of multiple sclerosis Hx of psychiatric hospitalization [facility] his 20s Lumbar back pain [...] loss Father Juve Agustin Diabetes Brother Ari Agusitn COPD Other mothers side Rheum arthritis Other [...] Kelly Mccullough DO documented in this encounter [facility] 06-22-2024 History of Presen t [...] He states he is transferring care to [facility] because his previous psychiatric provider left [...] done therapy. Reports seeing Deana Zaman at [facility] prior to her leaving. Reports doing [...] States he was hospitalized in 20s at [facility] and that is when [...] grandmother earlier this year. Education: Graduated from [employer]. Reports being bullied his entire life. 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 Reports marriage is good. Children: None Living situation: Lives with . Reports his [id number] and niece temporarily moved in with them recently Occupation: Has been working at [email or web address] for the past 11-12 years. Has been [...] to age Memory/Concentration Short term intact and tube fitter intact Insight/Judgement Good OBJECTIVE: Visit Vitals BP [...] orders for this visit: Bipolar 2 disorder ([facility]) - ARIPiprazole (Abilify) 10 MG tablet; Take [...] the local ER or call Suicide Hotline (200) for any psychosis, suicidal or homicidal ideation, [...] as described above. documented in this encounter [facility] 06-13-2024 History of Presen t [...] Items Addressed This Visit Bipolar 1 disorder ([facility]) Will have pt continue to follow with [...] notes as well documented in this encounter [facility] 06-13-2024 Instructions Georgia Davey NP - 06/13/2024 9:00 AM EST Trial lotrisone cream twice a day for 4 weeks, if not better call office documented in this encounter [facility] 06-02-2024 History of Presen t [...] more locally. He has been traveling from [place] to [place]. He states that his Abilify was reduced [...] , wrist extensors , wrist flexor , fitness and wellness director strength 5/5. LUE Strength deltoid , biceps , triceps , wrist extensors , wrist flexor , fitness and wellness director strength 5/5. RLE Strength illopsoas, quadriceps, tibialis [...] the brain with and without contrast at [facility] on 05/18/24: Unremarkable brain MRI performed [...] normal. PLAN: - Referral to psychiatry at [facility] in [place] per patient request - We have discussed [...] and return instructions documented in this encounter [facility] 05-05-2024 History of Presen t illness Narrative Images from the original note were not included. Chief Complaint Patient presents with Tremors Subjective Tahira Agustin, 43 y.o., male Patient is here with tremors. 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 LUE Strength deltoid , biceps , triceps , wrist extensors , wrist flexor , fitness and wellness director strength 5/5. RLE Strength illopsoas, quadriceps, tibialis [...] my impression that the patient has abnormal [id number] testing indicating ataxia. The patient is 43 [...] and return instructions documented in this encounter [facility] 04-19-2024 History of Presen t [...] Arthralgia Asymptomatic microscopic hematuria Bipolar 1 disorder ([facility]) 09/08/2023 Pt has a hx of [...] referral to Neurology documented in this encounter 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 Good compliance with use of sling Functional Limitations: 28/80 points, 65% impairment Ink Grinder Goals: AA/AROM R shoulder to 160 flexion [...] Physician Signature: Date: documented in this encounter [facility] Healthcare Evaluation note Diagnosis Internal derangement [...] unspecified type- Primary Wheezing Bipolar 1 disorder ([facility]) Overweight (BMI 25.0-29.9) Overweight Dyspnea, unspecified type- Primary Overweight (BMI 25.0-29.9) Overweight Bipolar 1 disorder ([facility]) Dyspnea, unspecified type- Primary Overweight (BMI 25.0-29.9) Overweight Tremor, unspecified- Primary Overweight (BMI 25.0-29.9) Overweight Encounter for wellness examination in adult- Primary Tremor, unspecified Overweight (BMI 25.0-29.9) Overweight Bipolar 1 disorder ([facility]) Rash Rash and other nonspecific skin eruption documented [facility]* Diagnosis Dyspnea, unspecified type- Primary Wheezing Bipolar 1 disorder ([facility]) Overweight (BMI 25.0-29.9) Overweight Dyspnea, unspecified type- Primary Overweight (BMI 25.0-29.9) Overweight Bipolar 1 disorder ([facility]) Dyspnea, unspecified type- Primary Overweight (BMI 25.0-29.9) Overweight Tremor, unspecified- Primary Overweight (BMI 25.0-29.9) Overweight Encounter for wellness examination in adult- Primary Tremor, unspecified Overweight (BMI 25.0-29.9) Overweight Bipolar 1 disorder ([facility]) Rash Rash and other nonspecific skin eruption Rectal bleeding Hemorrhage of rectum and anus Bipolar 2 disorder ([facility]) Other bipolar disorders Tardive dyskinesia Subacute dyskinesia due to drugs documented [facility]* Diagnosis Dyspnea, unspecified type- Primary Wheezing Bipolar 1 disorder ([facility]) Overweight (BMI 25.0-29.9) Overweight Dyspnea, unspecified type- Primary Overweight (BMI 25.0-29.9) Overweight Bipolar 1 disorder ([facility]) Dyspnea, unspecified type- Primary Overweight (BMI 25.0-29.9) Overweight Tremor, unspecified- Primary Overweight (BMI 25.0-29.9) Overweight Encounter for wellness examination in adult- Primary Tremor, unspecified Overweight (BMI 25.0-29.9) Overweight Bipolar 1 disorder ([facility]) Rash Rash and other nonspecific skin eruption Rectal bleeding Hemorrhage of rectum and anus Rectal bleeding- Primary Hemorrhage of rectum and anus documented [facility]* Diagnosis Dyspnea, unspecified type- Primary Wheezing Bipolar 1 disorder ([facility]) Overweight (BMI 25.0-29.9) Overweight Dyspnea, unspecified type- Primary Overweight (BMI 25.0-29.9) Overweight Bipolar 1 disorder ([facility]) Dyspnea, unspecified type- Primary Overweight (BMI 25.0-29.9) Overweight Tremor, unspecified- Primary Overweight (BMI 25.0-29.9) Overweight Encounter for wellness examination in adult- Primary Tremor, unspecified Overweight (BMI 25.0-29.9) Overweight Bipolar 1 disorder ([facility]) Rash Rash and other nonspecific skin eruption Rectal bleeding Hemorrhage of rectum and anus Bipolar 2 disorder ([facility]) Other bipolar disorders Tardive dyskinesia Subacute dyskinesia due to drugs documented [facility]* Diagnosis Dyspnea, unspecified type- Primary Wheezing Bipolar 1 disorder ([facility]) Overweight (BMI 25.0-29.9) Overweight Dyspnea, unspecified type- Primary Overweight (BMI 25.0-29.9) Overweight Bipolar 1 disorder ([facility]) Dyspnea, unspecified type- Primary Overweight (BMI 25.0-29.9) Overweight Tremor, unspecified- Primary Overweight (BMI 25.0-29.9) Overweight Encounter for wellness examination in adult- Primary Tremor, unspecified Overweight (BMI 25.0-29.9) Overweight Bipolar 1 disorder ([facility]) Rash Rash and other nonspecific skin eruption Rectal bleeding Hemorrhage of rectum and anus Bipolar 2 disorder ([facility]) Other bipolar disorders Tardive dyskinesia Subacute dyskinesia due to drugs documented [facility]* Diagnosis Dyspnea, unspecified type- Primary Wheezing Bipolar 1 disorder ([facility]) Overweight (BMI 25.0-29.9) Overweight Dyspnea, unspecified type- Primary Overweight (BMI 25.0-29.9) Overweight Bipolar 1 disorder ([facility]) Dyspnea, unspecified type- Primary Overweight (BMI 25.0-29.9) Overweight Tremor, unspecified- Primary Overweight (BMI 25.0-29.9) Overweight Encounter for wellness examination in adult- Primary Tremor, unspecified Overweight (BMI 25.0-29.9) Overweight Bipolar 1 disorder ([facility]) Rash Rash and other nonspecific skin eruption Rectal bleeding Hemorrhage of rectum and anus Bipolar 2 disorder ([facility]) Other bipolar disorders documented [facility]* Diagnosis Dyspnea, unspecified type- Primary Wheezing Bipolar 1 disorder ([facility]) Overweight (BMI 25.0-29.9) Overweight Dyspnea, unspecified type- Primary Overweight (BMI 25.0-29.9) Overweight Bipolar 1 disorder ([facility]) Dyspnea, unspecified type- Primary Overweight (BMI 25.0-29.9) Overweight Tremor, unspecified- Primary Overweight (BMI 25.0-29.9) Overweight Encounter for wellness examination in adult- Primary Tremor, unspecified Overweight (BMI 25.0-29.9) Overweight Bipolar 1 disorder ([facility]) Rash Rash and other nonspecific skin eruption Rectal bleeding Hemorrhage of rectum and anus Bipolar 2 disorder ([facility]) Other bipolar disorders Tardive dyskinesia Subacute dyskinesia due to drugs Tremor Abnormal involuntary movements documented [facility] encounter [facility]* Diagnosis Dyspnea, unspecified type- Primary Wheezing Bipolar 1 disorder ([facility]) Overweight (BMI 25.0-29.9) Overweight Dyspnea, unspecified type- Primary Overweight (BMI 25.0-29.9) Overweight Bipolar 1 disorder ([facility]) Dyspnea, unspecified type- Primary Overweight (BMI 25.0-29.9) Overweight Tremor, unspecified- Primary Overweight (BMI 25.0-29.9) Overweight Encounter for wellness examination in adult- Primary Tremor, unspecified Overweight (BMI 25.0-29.9) Overweight Bipolar 1 disorder ([facility]) Rash Rash and other nonspecific skin eruption Rectal bleeding Hemorrhage of rectum and anus Tardive dyskinesia Subacute dyskinesia due to drugs Bipolar 2 disorder ([facility]) Other bipolar disorders SAMRA (generalized anxiety disorder) ([facility]) Generalized anxiety disorder documented in [facility] encounter [facility]* Diagnosis Dyspnea, unspecified type- Primary Wheezing Bipolar 1 disorder ([facility]) Overweight (BMI 25.0-29.9) Overweight Dyspnea, unspecified type- Primary Overweight (BMI 25.0-29.9) Overweight Bipolar 1 disorder ([facility]) Dyspnea, unspecified type- Primary Overweight (BMI 25.0-29.9) Overweight Tremor, unspecified- Primary Overweight (BMI 25.0-29.9) Overweight Encounter for wellness examination in adult- Primary Tremor, unspecified Overweight (BMI 25.0-29.9) Overweight Bipolar 1 disorder ([facility]) Rash Rash and other nonspecific skin eruption Rectal bleeding Hemorrhage of rectum and anus Bipolar 2 disorder ([facility]) Other bipolar disorders SAMRA (generalized anxiety disorder) ([facility]) Generalized anxiety disorder Tardive dyskinesia Subacute dyskinesia due to drugs Tremor Abnormal involuntary movements documented [facility] encounter [facility]* Diagnosis Tremor, unspecified- Primary Overweight (BMI 25.0-29.9) Overweight Encounter for wellness examination in adult- Primary Tremor, unspecified Overweight (BMI 25.0-29.9) Overweight Bipolar 1 disorder ([facility]) Rash Rash and other nonspecific skin eruption Rectal bleeding Hemorrhage of rectum and anus Bipolar 2 disorder ([facility]) Other bipolar disorders SAMRA (generalized anxiety disorder) ([facility]) Generalized anxiety disorder Tremor Abnormal involuntary movements Tardive dyskinesia Subacute dyskinesia due to drugs Current episode of major depressive disorder without prior episode, unspecified depression episode severity ([facility]) [facility] [...] due to drugs 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 Diagnosis Tremor, unspecified- Primary [...] due to drugs documented in this encounter [facility]* Diagnosis Tremor, unspecified- Primary [...] To Contact Neurology Diagnoses Tremor, unspecified Procedures NE OFFICE/OUTPATIENT NEW HIGH MDM 60 MINUTES Georgia Davey NP [address] [place] [address] Estefania Sherman NP [address] [place] [address] Referral ID Status Reason Start Date Expiration Date Visits Requested Visits Authorized [id number] Pending Review Specialty Services Required 04/19/2024 10/16/2024 1 1 [facility] N[facility]* Consultation (Routine) - Authorized Specialty Diagnoses / Procedures Referred By Contac t Referred To Contact Physical Therapy Diagnoses S/P arthroscopy of right shoulder Procedures NE OFFICE/OUTPATIENT NEW HIGH MDM 60 MINUTES Gio Nova PA [address] [place] [address] Norah Cardenas, PT [address] [place] [address] Referral ID Status Reason Start Date Expiration Date Visits Requested Visits Authorized [id number] Authorized Consult and Treat 08/14/2023 02/10/2024 20 [...] DATE CREATED AUTHOR AUTHOR'S ORGANIZ ATION 03/08/2025 [facility] DATE CREATED AUTHOR AUTHOR'S ORGANIZ ATION 03/31/2025 [facility] DATE CREATED AUTHOR AUTHOR'S ORGANIZ ATION 04/22/2025 Reinier Pettit [facility] Care Teams (unrecognized sec tion and content) Lacing Operator Relationship Specialty Start Date End Date Montrell Serrano MD [address] [place] [phone] PCP - General Family Medicine 08/10/23 Georgia Davey NP [address] [place] [phone] Nurse Practitioner Family Medicine 07/20/22 Georgia Davey NP [address] [place] [phone] Referring Physician Family Medicine 05/04/23 Lacing Operator Relationship Specialty Start Date End Date Montrell Serrano MD [address] [place] [phone] PCP - General Family Medicine 08/10/23 Georgia Davey NP [address] [place] [address] Nurse Practitioner Family Medicine 07/20/22 Georgia Davey NP [address] [place] [phone] Referring Physician Family Medicine 05/04/23 Lacing Operator Relationship Specialty Start Date End Date Montrell Serrano MD [address] [place] [phone] PCP - General Family Medicine 08/10/23 Georgia Davey NP [address] [place] [address] Nurse Practitioner Family Medicine 07/20/22 Georgia Davey NP [address] [place] [phone] Referring Physician Family Medicine 05/04/23 Lacing Operator Relationship Specialty Start Date End Date Montrell Serrano MD [address] [place] [phone] PCP - General Family Medicine 08/10/23 Georgia Davey NP [address] [place] [address] Nurse Practitioner Family Medicine 07/20/22 Georgia Davey NP [address] [place] [phone] Referring Physician Family Medicine 05/04/23 Lacing Operator Relationship Specialty Start Date End Date Montrell Serrano MD [address] [place] [phone] PCP - General Family Medicine 08/10/23 Georgia Davey NP [address] [place] [address] Nurse Practitioner Family Medicine 07/20/22 Georgia Davey NP [address] [place] [phone] Referring Physician Family Medicine 05/04/23 Lacing Operator Relationship Specialty Start Date End Date Montrell Serrano MD [address] [place] [phone] PCP - General Family Medicine 05/04/23 08/09/23 Montrell Serrano MD [address] [place] [phone] PCP - General Family Medicine 08/10/23 Georgia Davey NP [address] [place] [phone] Nurse Practitioner Family Medicine 07/20/22 Georgia Davey NP [address] [place] [phone] Referring Physician Family Medicine 05/04/23 Lacing Operator Relationship Specialty Start Date End Date Montrell Serrano MD [address] [place] [phone] PCP - General Family Medicine 08/10/23 Georgia Davey NP [address] [place] [phone] Nurse Practitioner Family Medicine 07/20/22 Georgia Davey NP [address] [place] [phone] Referring Physician Family Medicine 05/04/23 Lacing Operator Relationship Specialty Start Date End Date Montrell Serrano MD [address] [place] [phone] PCP - General Family Medicine 08/10/23 Georgia Davey NP [address] [place] [phone] Nurse Practitioner Family Medicine 07/20/22 Georgia Davey NP [address] [place] [address] Referring Physician Family Medicine 05/04/23 Lacing Operator Relationship Specialty Start Date End Date Montrell Serrano MD [address] [place] [address] PCP - General Family Medicine 08/10/23 Georgia Davey NP [address] [place] [address] Nurse Practitioner Family Medicine 07/20/22 Georgia Davey NP [address] [place] [address] Referring Physician Family Medicine 05/04/23 Lacing Operator Relationship Specialty Start Date End Date Montrell Serrano MD [address] [place] [address] PCP - General Family Medicine 08/10/23 Georgia Davey NP [address] [place] [address]10[address] Nurse Practitioner Family Medicine 07/20/22 Georgia Davey NP [address] [place] [address] Referring Physician Family Medicine 05/04/23 Lacing Operator Relationship Specialty Start Date End Date Montrell Serrano MD [address] [place] [address] PCP - General Family Medicine 08/10/23 Georgia Davey NP [address] [place] [address] Nurse Practitioner Family Medicine 07/20/22 Georgia Davey NP [address] [place] [address] Referring Physician Family Medicine 05/04/23 Lacing Operator Relationship Specialty Start Date End Date Montrell Serrano MD [address] [place] [address] PCP - General Family Medicine 08/10/23 Georgia Davey NP [address] [place] [address] Nurse Practitioner Family Medicine 07/20/22 Georgia Davey NP [address] [place] [address] Referring Physician Family Medicine 05/04/23 Lacing Operator Relationship Specialty Start Date End Date Montrell Serrano MD [address] [place] [address] PCP - General Family Medicine 08/10/23 Georgia Davey NP [address] [place] [address] Nurse Practitioner Family Medicine 07/20/22 Georgia Davey NP [address] [place] [address]010[address] Referring Physician Family Medicine 05/04/23 Lacing Operator Relationship Specialty Start Date End Date Montrell Serrano MD [address] [place] [address]6710[address] PCP - General Family Medicine 08/10/23 Georgia Davey NP [address] [place] [address]-414[address] Nurse Practitioner Family Medicine 07/20/22 Georgia Davey NP [address] [place] [address]-163710[address] Referring Physician Family Medicine 05/04/23 Lacing Operator Relationship Specialty Start Date End Date Montrell Serrano MD [address] [place] [address]0210-[address] PCP - General Family Medicine 08/10/23 Georgia Davey NP [address] [place] [address]4110[address]1002 Nurse Practitioner Family Medicine 07/20/22 Georgia Davey NP [address] [place] [address]5710[address] Referring Physician Family Medicine 05/04/23 Lacing Operator Relationship Specialty Start Date End Date Montrell Serrano MD [address] [place] [address]45810-[address] PCP - General Family Medicine 08/10/23 Georgia Davey NP [address] [place] [address]2310[address] Referring Physician Family Medicine 05/04/23 Kwame Rodríguez NP [address] [address] [place] [address] Nurse Practitioner Behavioral Health 06/22/24 Nadia Swift DO [address] [place] [phone] Neurologist Neurology 06/22/24 Lacing Operator Relationship Specialty Start Date End Date Montrell Serrano MD [address] [place] [address]793210[address] PCP - General Family Medicine 08/10/23 Georgia Davey NP [address] [place] [address]-678310[address] Referring Physician Family Medicine 05/04/23 Kwame Rodríguez NP [address] [place] [address] Nurse Practitioner Behavioral Health 06/22/24 Nadia Swift DO [address] [place] [phone] Neurologist Neurology 06/22/24 Lacing Operator Relationship Specialty Start Date End Date Montrell Serrano MD [address] [place] [address]10[address] PCP - General Family Medicine 08/10/23 Geogria Davey NP [address] [place] [address]6510[address] Referring Physician Family Medicine 05/04/23 Kwame Rodríguez NP [address] [place] [address] [place] [address] Nurse Practitioner Behavioral Health 06/22/24 Nadia Swift DO [address] [place] [phone] Neurologist Neurology 06/22/24 Lacing Operator Relationship Specialty Start Date End Date Montrell Serrano MD [address] [place] [address]2810-1002 PCP - General Family Medicine 08/10/23 Georgia Davey NP [address] [place] [address]-418110[address] Referring Physician Family Medicine 05/04/23 Kwame Rodríguez NP [address] [place] [address] Nurse Practitioner Behavioral Health 06/22/24 Nadia Swift DO [address] [place] [phone] Neurologist Neurology 06/22/24 Lacing Operator Relationship Specialty Start Date End Date Montrell Serrano MD [address] [place] [address]-917110-[address] PCP - General Family Medicine 08/10/23 Georgia Davey NP [address] [place] [address]8110[address] Referring Physician Family Medicine 05/04/23 Kwame Rodríguez NP [address] [place], [place] [address] [address] Nurse Practitioner Behavioral Health 06/22/24 Nadia Swift DO [address] [place] [phone] Neurologist Neurology 06/22/24 Lacing Operator Relationship Specialty Start Date End Date Montrell Serrano MD [address] [place] [address]-615310-1002 PCP - General Family Medicine 08/10/23 Georgia Davey NP [address] [place] [address]6710[address] Referring Physician Family Medicine 05/04/23 Kwame Rodríguez NP [address] [place] [address] Nurse Practitioner Behavioral Health 06/22/24 Nadia Swift DO [address] [place] [phone] Neurologist Neurology 06/22/24 Lacing Operator Relationship Specialty Start Date End Date Montrell Serrano MD [address] [place] [address]-847210[address] PCP - General Family Medicine 08/10/23 Georgia Davey, JA [address] [place] [address]4610[address] Referring Physician Family Medicine 05/04/23 Kwame Rodríguez NP [address] [address] [place] [address] Nurse Practitioner Behavioral Health 06/22/24 Nadia Swift DO [address] [place] [phone] Neurologist Neurology 06/22/24 Lacing Operator Relationship Specialty Start Date End Date Montrell Serrano MD [address] [place] [address]-941510-1002 PCP - General Family Medicine 08/10/23 Georgia Davey, JA [address] [place] [address]3610-[address] Referring Physician Family Medicine 05/04/23 Kwame Rodríguez, DENISAP- [address] [address] [place] [address] Nurse Practitioner Behavioral Health 06/22/24 Nadia Swift DO [address] [place] [phone] Neurologist Neurology 06/22/24 Armen Hernández LPC Auxiliary Power Equipment Operator Behavioral Health 08/24/24 Lacing Operator Relationship Specialty Start Date End Date Montrell Serrano MD [address] [place] [address]-191410[address] PCP - General Family Medicine 08/10/23 Georgia Davey, JA [address] [place] [address] Referring Physician Family Medicine 05/04/23 Kwame Rodríguez [facility] [address] [facility] [address] [place] [address] Nurse Practitioner Behavioral Health 06/22/24 Nadia Swift DO [address] [place] [phone] Neurologist Neurology 06/22/24 Armen Hernández LPC Auxiliary Power Equipment Operator Behavioral Health 08/24/24 Lacing Operator Relationship Specialty Start Date End Date Montrell Serrano MD [address] [place] [address]3210-1002 PCP - General Family Medicine 08/10/23 Georgia Davey NP [address] [place] [address]-858910-[address] Referring Physician Family Medicine 05/04/23 Kwame Rodríguez [facility] [address] [facility] [address] [place] [address]2410[address]12 Nurse Practitioner Behavioral Health 06/22/24 Nadia Swift DO [address] [place] [phone] Neurologist Neurology 06/22/24 Armen Hernández LPC Auxiliary Power Equipment Operator Behavioral Health 08/24/24 Lacing Operator Relationship Specialty Start Date End Date Montrell Serrano MD [address] [place] [address]263410[address]1002 PCP - General Family Medicine 08/10/23 Georgia Davey NP [address] [place] [address]685110[address] Referring Physician Family Medicine 05/04/23 Kwame Rodríguez [facility] [address] [place] [address] [address] Nurse Practitioner Behavioral Health 06/22/24 Nadia Swift DO [address] [place] [phone] Neurologist Neurology 06/22/24 Armen Hernández LPC Auxiliary Power Equipment Operator Behavioral Health 08/24/24 Lacing Operator Relationship Specialty Start Date End Date Montrell Serrano MD [address] [place] [address]-1002 PCP - General Family Medicine 08/10/23 Georgia Davey NP [address] [place] [address]-1002 Referring Physician Family Medicine 05/04/23 [facility] [address] [facility] 160 [place] [address] Nurse Practitioner Behavioral Health 06/22/24 Nadia Swift DO [address] [phone] Neurologist Neurology 06/22/24 Armen Hernández LPC Auxiliary Power Equipment Operator Behavioral Health 08/24/24 Lacing Operator Relationship Specialty Start Date End Date Montrell Serrano MD [address] [place] [address]-1002 PCP - General Family Medicine 08/10/23 Georgia Davey NP [address] [place] [address]8910-1002 Referring Physician Family Medicine 05/04/23 [facility] 112 [facility] 160 [place] [address]12 Nurse Practitioner Behavioral Health 06/22/24 Nadia Swift DO [address] [address] [place] [address]-9999 Neurologist Neurology 06/22/24 Armen Hernández LPC Auxiliary Power Equipment Operator Behavioral Health 08/24/24 Lacing Operator Relationship Specialty Start Date End Date Montrell Serrano MD [address] [place] [address]-804210-1002 PCP - General Family Medicine 08/10/23 Georgia Davey, JA [address] [place] [address]-1002 Referring Physician Family Medicine 05/04/23 Kwame Rodríguez [facility] 112 [facility] 160 [place] [address] Nurse Practitioner Behavioral Health 06/22/24 Nadia Swift DO [address] [place] [phone] Neurologist Neurology 06/22/24 Armen Hernández LPC Auxiliary Power Equipment Operator Behavioral Health 08/24/24 Lacing Operator Relationship Specialty Start Date End Date Montrell Serrano MD [address] [place] [address] PCP - General Family Medicine 08/10/23 Georgia Davey, JA [address] [place] [address]-1002 Referring Physician Family Medicine 05/04/23 Kwame Rodríguez [facility] 112 [facility] 160 [place] [address] Nurse Practitioner Behavioral Health 06/22/24 Nadia Swift DO [address] [place] [phone] Neurologist Neurology 06/22/24 Lacing Operator Relationship Specialty Start Date End Date Montrell Serrano MD [address] [place] [address] PCP - General Family Medicine 08/10/23 Georgia Davey, JA [address] [place] [address]-1002 Referring Physician Family Medicine 05/04/23 [facility] 112 [facility] 160 [place] [address]29812 Nurse Practitioner Behavioral Health 06/22/24 Nadia Swift DO [address] [place] [phone] Neurologist Neurology 06/22/24 Lacing Operator Relationship Specialty Start Date End Date Montrell Serrano MD [address] [place] [address]-1002 PCP - General Family Medicine 08/10/23 Georgia Davey, JA [address] [place] [address]-1002 Referring Physician Family [facility] 05/04/23 [facility] [address] [phone] Nurse Practitioner Behavioral Health 06/22/24 Nadia Swift DO [address] [place] [phone] Neurologist Neurology 06/22/24 Lacing Operator Relationship Specialty Start Date End Date Montrell Serrano MD [address] [place] [phone] PCP - General Family Medicine 08/10/23 Georgia Davey, JA [address] [place] [address] Referring Physician Family Medicine 05/04/23 [facility] [address] [address] Nurse Practitioner Behavioral Health 06/22/24 Nadia Swift DO [address] [place] [phone] Neurologist Neurology 06/22/24 Lacing Operator Relationship Specialty Start Date End Date Montrell Serrano MD PCP - General Family Medicine 08/10/23 Georgia Davey, JA Referring Physician Family [facility] 05/04/23 [facility] [address] [phone] Nurse Practitioner Behavioral Health 06/22/24 Nadia Swift DO [address] [place] [phone] Neurologist Neurology 06/22/24 Lacing Operator Relationship Specialty Start Date End Date Montrell Serrano MD PCP - General Family Medicine 08/10/23 Georgia Davey NP Referring Physician Family Medicine 05/04/23 Kwame Rodríguez HNP- [address] [facility] 160 [place] [address] Nurse Practitioner Behavioral Health 06/22/24 Nadia Swift DO [address] [phone] Neurologist Neurology 06/22/24 Reason for Visit (unrecogniz ed section and content) Reason Comments Tremors Specialty Diagnoses / Procedures Referred By Contac t Referred To Contact Neurology Diagnoses Tremor, unspecified Procedures NE OFFICE/OUTPATIENT NEW HIGH MDM 60 MINUTES Georgia Davey NP [address] [place] [address] Phone: tel: fax: Galindo Sen MD [address] [place] [address] Phone: tel: fax: Referral ID Status Reason Start Date Expiration Date V isits Requested Visits Authorized [id number] Closed Specialty Services Required 04/19/2024 10/16/2024 1 1 Reason Comments Tardive Dyskinesia Tremors Reason Comments Psychiatric Evaluation Specialty Diagnoses / Procedures Referred By Contac t Referred To Contact Behavioral Health Diagnoses Tardive dyskinesia Tremor, unspecified Procedures NE OFFICE/OUTPATIENT NEW HIGH MDM Jim Lees NP [address] [place] [address] Phone: tel: fax: Kwame Rodríguez NP 112 [facility] 160 [place] [address] Phone: tel: fax: Referral ID Status Reason Start Date Expiration Date V isits Requested Visits Authorized [id number] Closed Specialty Services Required 06/02/2024 11/29/2024 1 [...] Behavioral Health Diagnoses Counseling Procedures Counseling [facility] [address] [address] Phone: tel: fax: [facility] [address] [address] Phone: tel: fax: Referral ID Status Reason Start Date Expiration Date Visits Re quested Visits Authorized [id number] Closed 06/29/2024 12/26/2024 1 1 Reason Comments Bipolar Specialty Diagnoses / Procedures Referred By Contac t Referred To Contact Behavioral Health Diagnoses Counseling Procedures Counseling [facility] 112 [facility] 160 [place] [address] Phone: tel: fax: [facility] [address] [address] Phone: tel: fax: Reason Onset Date Comments [...] EA 15 MIN. Olena Gomez MD [address] [phone] Phone: tel: fax: [facility] [address] [phone] Referral ID Status Reason Start Date Expiration Date Visits Requested Visits Authorized [id number] Authorized Auto-Generat ed Referral 07/20/2024 07/19/2025 40 40 Reason Comments Consult Specialty Diagnoses / Procedures Referred By Contac t Referred To Contact Psychology / NEUROLOGICAL UATSDIN Diagnoses Functional movement disorder Dyskinesia, tardive Procedures OFFICE/OUTPATIENT [facility] 60 MINUTES Olena Gomez MD [address] [phone] Phone: tel: fax: [facility] [address] [phone] Phone: tel: Referral ID Status Reason Start Date Expiration Date V isits Requested Visits Authorized [id number] Closed PCP Requested Referral 02/15/2025 05/16/2025 1 1 Reason Comments Follow-up Med Management Bipolar Anxiety Source Comments (unrecognize d section and content) In the event this informatio n is protected by the Federal Confidentiality of Alcohol and Drug Abuse Patient Records regulations: The Federal rules restrict any use of the information to criminally investigate or prosecute any alcohol or drug abuse patient.[facility] Center[facility] the event this information is protected by the Federal Confidentiality of Alcohol and Drug Abuse Patient Records regulations: The Federal rules restrict any use of the information to criminally investigate or prosecute any alcohol or drug abuse patient.[facility] Center[facility] the event this information is protected by the Federal Confidentiality of Alcohol and Drug Abuse Patient Records regulations: The Federal rules restrict any use of the information to criminally investigate or prosecute any alcohol or drug abuse patient.[facility] CenterIn the event this information is protected by the Federal Confidentiality of Alcohol and Drug Abuse Patient Records regulations: The Federal rules restrict any use of the information to criminally investigate or prosecute any alcohol or drug abuse patient.[facility] FOR RECORDS PERTAINING TO PATIENTS [...] BE BASED ON THE PRIMARY CLINICAL RECORDS. [facility] [employer] [facility]. provides no warranty or guarantee of the accuracy or completeness of information in this document.
== END 2025-04-26 16:00 | disposition home or self-care (01) ==
LOC: LAB 15:59
PROVIDERS: PCP Nurse Practitioner; Visit Provider Nurse Practitioner
DX: Z12.5 Encounter for screening for malignant neoplasm of prostate (principal)
CPT/HCPCS: 36415; G0103

== ENCOUNTER 2025-05-29 14:20 | Outpatient (OUT) | payer OTHER, SELFPAY ==
--- OUTSIDE RECORDS SUMMARY | 2025-05-29 14:22 | XMS_ITS | Encounter Summary ---
Author Organization [facility] Address [address] [place] [address] Care Team Providers Care Itinerant Teacher Assistant Name Role Phone Georgia Davey MEDIA MARKETING COORDINATOR Unavailable [phone] Georgia Davey NP Unavailable [phone] Montrell Serrano MD Primary Care Provider [phone] Eunice Rodríguez [facility]- Unavailable Jj Swift DO Unavailable [phone] Armen Suggs LPC Unavailable Unavailable Encounter Details DateTypeDepartmentCare Team (Latest Contact Info)Jpdanvprxme46/01/2024Clinisync Result Encounter [facility] External Department Unsolicited Georgia Davey NP [address] [place] [address] Social History Tobacco UseTypesPacks/DayYears UsedDateSmoking Tobacco: NeverAlcohol UseStandard Drinks/WeekCommentsYes0 (1 standard drink = 0.6 oz pure alcohol)1-2 drinks, monthly or less.Social Connection and Isolation PanelAnswerDate RecordedIn a typical week, how many times do you talk on the phone with family, friends, or neighbors?More than three times a week09/07/2023How often do you get together with friends or relatives?Twice a week09/07/2023How often do you attend muslim or confucianism services?More than 4 times per year4Do you belong to any clubs or organizations such as muslim groups, unions, fraternal or athletic taty ups, or school groups?Patient iisfzusg80/19/2024How often do you attend meetings of the clubs or organizations you belong to?Patient sayjksht51/19/2024re you , , , , never , or living with a partner? Jjprdwk2509/07/2023UDIT-CAnswerDate RecordedQ1: How often do you have a drink containing alcohol?Monthly or less06/22/2024Q2: How many drinks containing alcohol do you have on a typical day when you are drinking?1 or Q3: How often do you have six or more drinks on one occasion?Never06/22/2024Overall Financial Resource Strain (CARDIA)AnswerDate RecordedHow hard is it for you to pay for the very basics like food, housing, medical care, and heating?Not hard at all09/07/2023HQ-2AnswerDate RecordedPatient Health Questionnaire-2 Score0 10/19/2024[facility] [place] [facility] Occup[facility] - Occupational Stress QuestionnaireAnswerDate RecordedDo you feel stress - tense, restless, nervous, or anxious, or unable to sleep at night because yourmind is troubled all the time - these days?Rather much09/07/2023Exercise Vital SignAnswerDate RecordedOn average, how many days per week do you engage in moderate to strenuous exercise (like a brisk walk)?2 days09/07/2023On average, how many minutes do you engage in exercise at this level?20 min09/07/2023Hunger Vital SignAnswerDate Recorded Within the past 12 months, you worried that your food would run out before you got the money to buymore.Never true09/07/2023Within the past 12 months, the food you bought just didn't last and you didn't have money to get more.Never true 09/07/2023RAPARE - TransportationAnswerDate RecordedIn the past 12 months, has lack of transportation kept you from medical appointments or from getting medications?No09/07/2023In the past 12 months, has lack of transportation kept you from meetings, work, or from getting things needed for daily living?No 09/07/2023Housing Stability Vital SignAnswerDate RecordedIn the last 12 months, was there a time when you were not able to pay the mortgage or rent on time?No 09/07/2023In the last 12 months, how many places have you lived?In the last 12 months, was there a time when you did not have a steady place to sleep or slept in [facility] (including now)?No09/07/2023Sex and Gender InformationValueDate RecordedSex Assigned at BirthNot on fileLegal SexMale 10/01/2022 7:11 PM EDTGender IdentityNot on fileSexual OrientationNot on file documented as of this encounter Functional Status * AUDIT-C ScoreAnswerDate of GsmruzeftcWcvrtz597/04/2024 8:16 AM Juliana Morales LPN * QuestionAnswerDate of AssessmentAuthorQ1: How often do you have a drink containing alcohol?Monthly or less06/22/2024 8:16 AM Juliana Morales LPNQ2: How many drinks containing alcohol do you have on a typical day when you are drinking?1 or 8:16 AM Juliana Morales LPNQ3: How often do you have six or more drinks on one occasion?Never06/22/2024 8:16 AM Juliana Morales LPN * Over the past 2 weeks, how often have you been bothered by any of the following problems?QuestionAnswerDate of AssessmentAuthorPatient Health Questionnaire-2 Zhnqz368 7:52 AM Juliana Potter LPN * How difficult have these problems made it for you to do your work, take care of things at home, or get along with other people?AnswerDate of Assessment AuthorVery cpewmmvwa29/02/2025 7:52 AM Juliana Potter LPN * Over the last 2 weeks, how often have you been bothered by any of the following problems?QuestionAnswerDate of AssessmentAuthorFeeling nervous, anxious, or on fvpu934 7:54 AM Juliana Potter LPNNot being able to stop or control nchacpsk890/02/2025 7:54 AM EDTCollrene Juliana, LPNWorrying too much about different gnqjhu371 7:54 AM EDTCollins Juliana, LPNTrouble yoxmforb231/02/2025 7:54 AM EDTCollins Juliana, LPNBeing so restless that it is hard to sit tupud146 7:54 AM EDTCollins Juliana, LPNBecoming easily annoyed or dhutlwhrs667/02/2025 7:54 AM EDTCollins, Juliana, LPNFeeling afraid as if something awful might igvtjc316 7:54 AM EDTCollFlower lópezi, LPNGAD-7 Total Nhbnp4270/02/2025 7:54 AM EDTCollins Juliana, ELOCUTION TEACHER * Over the past 2 weeks, how often have you been bothered by any of the following problems?QuestionAnswerDate of AssessmentAuthorLittle interest or pleasure in doing thingsNot at all10/19/2024 7:52 AM EDTCollins, Juliana, ELOCUTION TEACHER Feeling down, depressed, or hopelessNot at all10/19/2024 7:52 AM EDTCollins, Juliana, LPNTrouble falling or staying asleep, or sleeping too muchNearly every day10/19/2024 7:52 AM EDTCollins, Juliana, LPNFeeling tired or having little energyNearly every day10/19/2024 7:52 AM EDTCollrene Juliana, LPNPoor appetite or overeatingNot at all10/19/2024 7:52 AM EDTCollins, Juliana, LPNFeeling bad about yourself - or that you are a failure or have let yourself or your family down Not at all10/19/2024 7:52 AM EDTCollins, Juliana, LPNTrouble concentrating on things, such as reading the newspaper or watching televisionNearly every day 10/19/2024 7:52 AM EDTCollrene Juliana, LPNMoving or speaking so slowly that other people could have noticed? Or the opposite - being so fidgety or restless that you have been moving around a lot more than usual.Nearly every day10/19/2024 7:52 AM Juliana Potter LPNThoughts that you would be better off or hurting yourself in some wayNot at all10/19/2024 7:52 AM Juliana Josue LPNPatient Health Questionnaire-9 Cuqgv3358/02/2025 7:52 AM Juliana Josue LPN documented as of this encounter Plan of Treatment DateTypeDepartmentCare Team (Latest Contact Info)Fltspflpgsc25/19/2026 3:30 PM ESTOffice Visit [facility] [address] [place] [address] Eunice Rod[facility]guez, [facility] [address] [place] [address] documented as of this encounter Procedures Procedure NamePriorityDate/TimeAssociated DiagnosisCommentsXR CHEST 2V09/18/2023 10:48 AM EST documented in this encounter Results * XR CHEST 2V (09/18/2023 10:48 AM EST)Anatomical RegionLateralityModalityOther Specimen (Source)Anatomical Location / LateralityCollection Method / Volume Collection TimeReceived Time09/18/2023 10:48 AM EST Narrative 09/18/2023 10:51 AM EST [facility] ?[address] ? [place] [address] ?XRay Report ? Signed ? Patient: SHINE IVEY ?MR#: [id number] ?? : 1980 ?Acct:[id number] ?? Age/Sex: 42 / M ?ADM Date: 09/18/23 ?? Loc: CARD ? Attending Dr: Georgia Davey MEDIA MARKETING COORDINATOR ? Ordering Physician: Georgia Davey NP ?? Date of Service: 09/18/23 ?? Procedure(s): XR chest 2V ?? Accession Number(s): [id number] ? cc: Georgia Davey MEDIA MARKETING COORDINATOR ? [facility] ? [address] ? [place] [address] ? Patient Name: ?? SHINE IVEY ? MRN: [facility]:[id number] ? date: 1980 ?Sex: M ?? Assigned Patient Location: CARD ?? Current Patient Location: CARD ?? Accession/Order Number: [id number] ?? Exam Date: 09/18/2023 ??10:17 ?Report Date: 09/18/2023 ??10:48 ? At the request of: ?? GEORGIA DAVEY ? Procedure: ??XR chest 2V ? EXAM: XR chest 2V ? HISTORY: Dyspnea R06.00, Wheezing R06.2 ? COMPARISON: None. ? TECHNIQUE: PA and lateral views of the chest. ? FINDINGS: ?? The cardiomediastinal silhouette is normal. ? No focal consolidation is identified. ?? There is no pneumothorax. ?? No pleural effusion is noted. ? The osseous structures are intact. ? XR/XR chest 2V ?? IMPRESSION: ?? No acute cardiopulmonary process. ? Electronically authenticated by: SELINA ??LE ?? Date: 09/18/2023 ??10:48 ? Dictated By: ?Selina Mcintosh M.D. ? Signed By: ?09/18/231 ? DD/ 1048 ? TD/TT: ? Tube And Rod Straightener: Procedure Note Radiology, Radiologist, MD - 09/18/2023 The [place] [id number] XRay Report Signed Patient: SHINE IVEY MMR#: [id number] : 1980Acct:[id number] Age/Sex: 42 / MADM Date: 09/18/23 Loc: CARD Attending Dr: Georgia Davey MEDIA MARKETING COORDINATOR Ordering Physician: Georgia Davey NP Date of Service: 09/18/23 Procedure(s): XR chest 2V Accession Number(s): [id number] cc: Georgia Davey NP The [address] [address] Patient Name: SHINE IVEY MRN: [id number] date: 1980 Sex: M Assigned Patient Location: CARD Current Patient Location: CARD Accession/Order Number: [id number] Exam Date: 09/18/2023 10:17 Report Date: 09/18/2023 10:48 At the request of: GEORGIA J AICHHOLZ Procedure: XR chest 2V EXAM: XR chest 2V HISTORY: Dyspnea R06.00, Wheezing R06.2 COMPARISON: None. TECHNIQUE: PA and lateral views of the chest. FINDINGS: The cardiomediastinal silhouette is normal. No focal consolidation is identified. There is no pneumothorax. No pleural effusion is noted. The osseous structures are intact. XR/XR chest 2V IMPRESSION: No acute cardiopulmonary process. Electronically authenticated by: SELINA MCINTOSH Date: 09/18/2023 10:48 Dictated By: Selina Mcintosh M.D. Signed By:09/18/23 1051 DD/ 1048 TD/TT: Tube And Rod Straightener: Authorizing ProviderResult TypeResult StatusLisa Lancaster Rehabilitation Hospitalannette NPCLINISYNC IMAGING Final Result documented in this encounter Visit Diagnoses Not on filedocumented in this encounter Care Teams Team MemberRelationshipSpecialtyStart DateEnd Date Montrell Serrano MD PCP - GeneralFamily Medicine08/10/23 Georgia Davey NP Nurse PractitionerFamily Medicine07/20/2311 Georgia Davey NP Referring PhysicianFamily Wqzeqzua23/16/23 [facility]unice Rod[facility] [address] [facility] [address] [place] [address] Nurse PractitionerBehavioral Cagbhs09/4/24 Jj Swift DO [address] [facility] [address] [place] [phone] UplphbibayeOiyqrjomu91/4/24 Armen Suggs LPC Social WorkerBehavioral Healthdocumented as of this encounter
--- OUTSIDE RECORDS SUMMARY | 2025-05-29 14:22 | XMS_ITS | Encounter Summary ---
Author Organization [facility] Address [address] [facility] [place] [address] Care Team Providers Care Forensic Examiner Name Role Phone Georgia Davey NP Unavailable [phone] Georgia Davey NP Unavailable [phone] Montrell Serrano MD Primary Care Provider [phone] Eunice Rodríguez [facility]- Unavailable [phone] Nadia Dubois DO Unavailable [phone] Armen Suggs LPC Unavailable Unavailable Encounter Details DateTypeDepartmentCare Team (Latest Contact Info)Bpajhryxccg31/30/2024Clinisync Result Encounter [facility] External Department Unsolicited Nadia Dubois DO [address] [place] [address] Social History Tobacco UseTypesPacks/DayYears UsedDateSmoking Tobacco: NeverAlcohol UseStandard Drinks/WeekCommentsYes0 (1 standard drink = 0.6 oz pure alcohol)1-2 drinks, monthly or less.Social Connection and Isolation PanelAnswerDate RecordedIn a typical week, how many times do you talk on the phone with family, friends, or neighbors?More than three times a week09/07/2023How often do you get together with friends or relatives?Twice a week09/07/2023How often do you attend taoist or adventist services?More than 4 times per year4Do you belong to any clubs or organizations such as taoist groups, unions, fraternal or athletic taty ups, or school groups?Patient jgszxryw28/19/2024How often do you attend meetings of the clubs or organizations you belong to?Patient qockbnxj15/19/2024re you , , , , never , or living with a partner? Ewnnnqm5509/07/2023UDIT-CAnswerDate RecordedQ1: How often do you have a [...] hard at all09/07/2023HQ-2AnswerDate RecordedPatient Health Questionnaire-2 Score0 10/19/2024[facility] [place] [facility] Occupational Health - Occupational Stress QuestionnaireAnswerDate [...] steady place to sleep or slept in [place] (including now)?No09/07/2023Sex and Gender InformationValueDate RecordedSex Assigned at BirthNot on fileLegal SexMale 10/01/2022 7:11 PM EDTGender IdentityNot on fileSexual OrientationNot on file documented as of this encounter Functional Status * AUDIT-C ScoreAnswerDate of QcvvqvjpzzOruzod423/04/2024 8:16 AM Juliana Morales LPN * QuestionAnswerDate [...] the following problems?QuestionAnswerDate of AssessmentAuthorPatient Health Questionnaire-2 Pxfme233 7:52 AM Juliana Potter LPN * How difficult have these problems made it for you to do your work, take care of things at home, or get along with other people?AnswerDate of Assessment AuthorVery chxlevaop11/02/2025 7:52 AM Juliana Potter LPN * Over the last 2 weeks, how often have you been bothered by any of the following problems?QuestionAnswerDate of AssessmentAuthorFeeling nervous, anxious, or on jwfk351 7:54 AM Juliana Potter LPNNot being able to stop or control zfhtuxwt004/02/2025 7:54 AM EDTCollins, Juliana, LPNWorrying too much about different zatsfm572 7:54 AM EDTCollins, Juliana, LPNTrouble phvkeubw774/02/2025 7:54 AM EDTCollrene Juliana, LPNBeing so restless that it is hard to sit ixomg126 7:54 AM EDTCollins Juliana, LPNBecoming easily annoyed or pxczutliv751/02/2025 7:54 AM EDTCollins, Juliana, LPNFeeling afraid as if something awful might 7:54 AM EDTCollFlower lópezi, LPNGAD-7 Total Lxwkv0490/02/2025 7:54 AM EDTCollins Juliana, SUSTAINABLE LANDSCAPE ARCHITECT * Over the past 2 weeks, how often have you been bothered by any of the following problems?QuestionAnswerDate of AssessmentAuthorLittle interest or pleasure in doing thingsNot at all10/19/2024 7:52 AM EDTCollins, Juliana, SUSTAINABLE LANDSCAPE ARCHITECT Feeling down, depressed, or hopelessNot at all10/19/2024 [...] watching televisionNearly every day 10/19/2024 7:52 AM EDTCollins, Juliana, LPNMoving or speaking so slowly that other people could have noticed? Or the opposite - being so fidgety or restless that you have been moving around a lot more than usual.Nearly every day10/19/2024 7:52 AM BRADLEYTCJuliana thompson LPNThoughts that you would be better off or hurting yourself in some wayNot at all10/19/2024 7:52 AM EDT Juliana Tillman LPNPatient Health Questionnaire-9 Usvhm4758/02/2025 7:52 AM EDT Juliana Tillman LPN documented as of this encounter Plan of Treatment DateTypeDepartmentCare Team (Latest Contact Info)Ygucsqrjjeo02/19/2026 3:30 PM ESTOffice Visit [facility] [address] [place] [address] Eunice Rodríguez, [facility]- [address] [place] [address] documented as of this encounter Procedures Procedure NamePriorityDate/TimeAssociated DiagnosisCommentsMRI HEAD/BRAIN WO/W CONTR05/18/2024 2:20 PM EDT documented in this encounter Results * MRI HEAD/BRAIN WO/W CONTR (05/18/2024 2:20 PM EDT)Anatomical RegionLaterality ModalityRadiographic ImagingSpecimen (Source)Anatomical Location / Laterality Collection Method / VolumeCollection TimeReceived Time05/18/2024 2:20 PM EDT Narrative 05/18/2024 2:23 PM EDT [facility] ?[address] ? [place] [address] ? Magnetic Resonance Report ? Signed ? Patient: SHINE IVEY ?MR#: [id number] ?? : 1980 ?Acct:[id number] ?? Age/Sex: 43 / M ?ADM Date: 05/18/24 ?? Loc: MRI ? Attending Dr: Nadia Dubois D.O. ? Ordering Physician: Nadia Dubois D.O. ?? Date of Service: 05/18/24 ?? Procedure(s): MR head/brain wo/w con ?? Accession Number(s): [id number] ? cc: Georgia Davey LAYBOY OPERATOR; Nadia Dubois D.O. ? [facility] ? [address] ? [place] [address] ? Patient Name: ?? SHINE IVEY ? MRN: [facility]:[id number] ? date: 1980 ?Sex: M ?? Assigned Patient Location: MRI ?? Current Patient Location: MRI ?? Accession/Order Number: [id number] ?? Exam Date: 05/18/2024 ??08:00 ?Report Date: 05/18/2024 ??14:20 ? At the request of: ?? NADIA ??SHERLY ? Procedure: ??MR head/brain wo/w con ? EXAM: MR head/brain wo/w con ? HISTORY: R27.0 ? COMPARISON: MRI brain 12/20/2020. ? TECHNIQUE: Multisequence MRI brain was performed with and without intravenous ?? contrast. ? FINDINGS: ? There is no restricted diffusion to suggest acute infarct. There is no midline ? shift, mass effect, or abnormal extraaxial fluid collections. ? There are no abnormal parenchymal or leptomeningeal enhancement. ? The cortical sulci and ventricular system are within normal limits. ? The major intracranial flow voids are visualized. The cerebellar tonsils are ?? normal in position. ? The orbits demonstrate no suspicious enhancement or any focal lesions. The ?? paranasal sinuses show no air-fluid level. The mastoid air cells are clear. ?? The ?? calvarium and extracranial soft tissues are unremarkable. ? MR/MR head/brain wo/w con ?? IMPRESSION: ? Unremarkable brain MRI performed without and with contrast. ? Electronically authenticated by: LUIZ ??UNLU ?? Date: 05/18/2024 ??14:20 ? Dictated By: ?UNLU,LUIZ M.D. ? Signed By: ?05/18/24 1423 ? DD/ 1420 ? TD/TT: ? Position Description Manager: Procedure Note Radiology, Radiologist, MD - 05/18/2024 [place] [address] Magnetic Resonance Report Signed Patient: SHINE [facility]EY [facility] [id number] : 1980Acct:[id number] Age/Sex: 43 / MADM Date: 05/18/24 Loc: MRI Attending Dr: Nadia Dubois D.O. Ordering Physician: Nadia Dubois D.O. Date of Service: 05/18/24 Procedure(s): MR head/brain wo/w con Accession Number(s): [id number] cc: Georgia Davey NP; Nadia Dubois D.O. [place] [id number] Patient Name: SHINE IVEY MRN: [id number] date: 1980 Sex: M Assigned Patient Location: MRI Current Patient Location: MRI Accession/Order Number: [id number] Exam Date: 05/18/2024 08:00 Report Date: 05/18/2024 14:20 At the request of: NADIA DUBOIS Procedure: MR head/brain wo/w con EXAM: MR head/brain wo/w con HISTORY: R27.0 COMPARISON: MRI brain 12/20/2020. TECHNIQUE: Multisequence MRI brain was performed with and withoutintravenous contrast. FINDINGS: There is no restricted diffusion to suggest acute infarct. There is nomidline shift, mass effect, or abnormal extraaxial fluid collections. There are no abnormal parenchymal or leptomeningeal enhancement. The cortical sulci and ventricular system are within normal limits. The major intracranial flow voids are visualized. The cerebellar tonsilsare normal in position. The orbits demonstrate no suspicious enhancement or any focal lesions. The paranasal sinuses show no air-fluid level. The mastoid air cells areclear. The calvarium and extracranial soft tissues are unremarkable. MR/MR head/brain wo/w con IMPRESSION: Unremarkable brain MRI performed without and with contrast. Electronically authenticated by: LUIZ MENDOZA Date: 05/18/2024 14:20 Dictated By: LUIZ MENDOZA M.D. Signed By:05/18/24 1423 DD/ 142 TD/TT: Position Description Manager: Authorizing ProviderResult TypeResult StatusChristopher Dubois DOIMG XR PROCEDURESFinal Result documented in this encounter Visit Diagnoses Not on filedocumented in this encounter Care Teams Team MemberRelationshipSpecialtyStart DateEnd Date Montrell Serrano MD PCP - GeneralFamily Medicine08/10/23 Georgia Davey NP Nurse PractitionerFamily Medicine07/20/2311 Georgia Davey NP Referring PhysicianFamily Vpqnyiwx75/16/23 Eunice Rodríguez [facility] [address] [place] [phone] Nurse PractitionerBehavioral Vpomut17/4/24 Nadia Dubois DO [address] [phone] OczxvwlpjxeWudbxrkrf99/4/24 Armen Suggs LPC Social WorkerBehavioral Healthdocumented as of this encounter
--- OUTSIDE RECORDS SUMMARY | 2025-05-29 14:22 | XMS_ITS | Clinical Summary ---
Author Organization [facility] Address [address] [facility] [place] [address] Care Team Providers Care Bakery Decorator Name Role Phone Georgia Davey NP Unavailable [phone] Montrell Serrano MD Primary Care Provider [phone] Eunice Rodríguez PMHNP- Unavailable [phone] Jj Swift DO Unavailable [phone] Allergies Active AllergyReactionsCriticalityNoted JluoPkpefivpMyogkgutBinbt47/28/2019 Severe itching HhfjjtlyeieLebzHpv89/14/2024 Medications MedicationSigDispense QuantityRefillsLast FilledStart DateEnd DateStatus lamoTRIgine (LaMICtal) 25 MG tablet Indications:Bipolar 2 disorder (HCC),Tardive dyskinesiaTake 2 tablets (50 mg) by mouth Daily 60 tablet 5Active FLUoxetine (PROzac) 20 MG capsule Indications:SAMRA (generalized anxiety disorder),Tardive dyskinesiaTake 1 capsule (20 mg) by mouth Daily 30 capsule 5Active valbenazine tosylate (Ingrezza) 80 MG capsule Indications:Bipolar 2 disorder (HCC),SAMRA (generalized anxiety disorder)Take 1 capsule (80 mg) by mouth Daily 90 capsule /ctive valbenazine tosylate (Ingrezza) 80 MG capsule Indications:Bipolar 2 disorder (HCC),SAMRA (generalized anxiety disorder)Take 1 capsule (80 mg) by mouth Daily 30 capsule 51Discontinued(Reorder) valbenazine tosylate (Ingrezza) 80 MG capsule Indications:Bipolar 2 disorder (HCC),SAMRA (generalized anxiety disorder)Take 1 capsule (80 mg) by mouth Daily 90 capsule Discontinued(Reorder) Active Problems ProblemNoted DateDiagnosed DateMixed bipolar affective disorder, mild12/08/2024 Assessment & Plan (01/24/2025 9:02 AM EDT): Continue with psych Joint hcwvoxhvv46/22/2025 Assessment & Plan (12/08/2024 9:32 AM EDT): Family hx RA Excessive eybvhbaf12/22/2025 Assessment & Plan (12/08/2024 9:32 AM EDT): Check labs ??side effect meds?? Zmzonqse41/22/2025Weight loss, degjqiyjiofin18/22/2025 Assessment & Plan (01/24/2025 9:01 AM EDT): Had labs completed no acute abnormals Mid December sent back my chart message about ordering CT , pt did not respond to this Discuss w him today he wants to wait until after seeing movement specialist No bloody stools, occ diarrhea but more related what foods he eats since no gallbladder Assessment & Plan (12/08/2024 9:32 AM EDT): Unclear etiology Family hx DM, autoimmune as well ? Psych related? Bipolar 2 akrtlizi13/14/2025 Assessment & Plan (12/08/2024 6:11 AM EDT): Under the care of psychological aide Current meds: fluoxetine, lamictal, inderal, ingrezza SAMRA (generalized anxiety disorder)11/30/2024Tardive bcpyxegmup42/14/2025 Assessment & Plan (01/24/2025 8:58 AM EDT): Working w psych Also has movement disorder Assessment & Plan (12/08/2024 6:11 AM EDT): Taking ingrezza Follow w psych Current episode of major depressive disorder without prior qatvqna3411/30/2024 Wtqmhq4304/19/2024 Assessment & Plan (12/08/2024 9:32 AM EDT): Taking inderal for this ? Thyroid, ?? Side effect meds Assessment & Plan (06/13/2024 6:15 AM EST): Had evaluation with neurology , also had MRI I have reviewed the MRI brain w and w/o: normal Reviewed Neurology notes as well Assessment & Plan (04/19/2024 11:51 AM EDT): Will refer to Neuro Differentials: side effect psych meds, essential tremor, MS, parkinsons, brain lesion, spinal pathology Keep fu appt in late May as well Overweight (BMI 25.0-29.9)09/08/2023 Assessment & Plan (12/08/2024 6:10 AM EDT): Recommend exercise, balanced diet as well Assessment & Plan (06/13/2024 8:58 AM EST): Recommend exercise S/P arthroscopy of right sfpwacxn79/29/2024Internal derangement of right igdfahro83/22/2023 Resolved Problems ProblemNoted DateDiagnosed DateResolved DateEncounter for wellness examination in adult Assessment & Plan (06/13/2024 6:17 AM EST): Reviewed Ht/Wt/BMI Recommend eye exam yearly Recommend dental exams twice a year Balance work/leisure activities Exercises is recommended most days of the week (appropriate as chronic conditions allow) Follow up yearly and prn Rash/ Assessment & Plan (06/13/2024 9:06 AM EST): No improvement in rash with steroid (Rx strength) Will trial lotrisone cream If not better contact office Rectal bfbejpra62/ Assessment & Plan (06/13/2024 10:05 AM EST): When returning to room to give AVS, pt states that he has had rectal bleeding for the last several weeks. He believes he has an internal hemorrhoid Will refer to General surgeon for eval Bipolar 1 djgawwvv42/ Overview (09/08/2023): Pt has a hx of bipolar one. Pt is on Benztropine, abilify and Celexa. Pt was seeing psych, however he could not afford it anymore. Pt states he has not had a manic episode in several years. Pt stateshe does not feel depressed at this time. Assessment & Plan (06/13/2024 6:16 AM EST): Will have pt continue to follow with Psych provider for management of symptoms Assessment & Plan (10/07/2023 9:46 AM EDT): Will verify with psych if ok for use of singulair Assessment & Plan (09/08/2023 9:36 AM EST): Continue with psych for managment Pvxqimi82/ Overview (09/23/2023): Had normal CXR 10/10, 09/18/2023: PFT: FEV1: 84%, FVC 94%, and FEV1/FVC; 71%, mild obstruction pattern, trends toward mild COPD/Emphysema pattern vs asthma with loss of a bronchodilator response Assessment & Plan (12/10/2023 9:32 AM EDT): Finished singulair, did not notice any difference At this point he does not really want to trial something different, does feel it is better And he will monitor for now Fu in 6 months Assessment & Plan (10/08/2023 5:10 PM EDT): Reviewed PFT, at this point would like to trial singulair, will verify first with psych provider Deana Zaman in [place] to make sure ok to use with psych diagnosis [phone] 10/07/23 message regarding this , will await a call back No smoking history, however he has had second hand smoke exposure for many years Fu in 6 weeks 10/08/23 10:23 Trinh from Deana Zaman's office called back ok to trial fabi, just monitor for worsening in mood LA Assessment & Plan (09/08/2023 9:36 AM EST): Check xray and pft Discussed other differentials: cardiac, and anxiety Fu in 4 weeks Evpxynba03/ Assessment & Plan (09/08/2023 9:36 AM EST): No hx of asthma, no smoking hx +family hx COPD/Emphysema, however members are smokers Check cxr and pft Fu in 4 weeks Encounters DateTypeDepartmentCare VvaaWsmgtftjlcc05/29/2025Refill [facility] [address] [facility] [address] [place] [phone] Juliana Tillman LPN Bipolar 2 disorder (HCC); SAMRA (generalized anxiety disorder)05/11/2025Refill [facility] [address] [facility] [address] [place] [phone] Eunice Rodríguez [facility]- Bipolar 2 disorder (HCC); SAMRA (generalized anxiety disorder)03/29/2025 8:00 AM EDTTelemedicine [facility] [address] [facility] [address] [place] [phone] [facility] Bipolar 2 disorder (HCC); SAMRA (generalized anxiety disorder) ; Tardive ksfggeooej97/10/2025Orders Only [facility] [address] [facility] [address] [place] [phone] [facility] Bipolar 2 disorder (HCC); SAMRA (generalized anxiety disorder)03/22/2025Travelfrom Last 3 Months Family History Medical HistoryRelationNameCommentsDiabetesBrotherDrew HenryMultiple sclerosis FatherRickie HenryVision lossFatherRickie HenryArthritisMaternal Grandmother Brinda ShearnHearing lossMaternal GrandmotherCarolyn ShearnVision lossMother Sandra sorgCOPDOthermothers sideFibromyalgiaOthermothers sideRheum arthritisOther mothers sideRelationNameStatusCommentsBrotherDrew VamsiFaJessica AgustinAlive Maternal GrandmotherLeifn ShearnMotherPenny sorgAliveOthermothers side Social History Tobacco UseTypesPacks/DayYears UsedDateSmoking Tobacco: NeverSmokeless Tobacco: Never Tobacco Cessation:Counseling Given: Not Answered Alcohol UseStandard Drinks/WeekCommentsNot Currently0 (1 standard drink = 0.6 oz pure alcohol)caffiene- 3 sweet tea and occasion popSocial Connection and Isolation PanelAnswerDate RecordedIn a typical week, how many times do you talk on the phone with family, friends, or neighbors?More than three times a week 09/07/2023How often do you get together with friends or relatives?Twice a week 09/07/2023How often do you attend holiness or uatsdin services?More than 4 times per year09/07/2023o you belong to any clubs or organizations such as holiness groups, unions, fraternal or athletic groups, or school groups?Patient declined 09/07/2023How often do you attend meetings of the clubs or organizations you belong to?Patient hhcrwvum24/19/2024re you , , , , never , or living with a partner?Sjujipg7109/07/2023UDIT-C AnswerDate RecordedQ1: How often do you have a drink containing alcohol?Monthly or less06/22/2024Q2: How many drinks containing alcohol do you have on a typical day when you are drinking?1 or Q3: How often do you have six or more drinks on one occasion?Never06/22/2024Overall Financial Resource Strain (CARDIA) AnswerDate RecordedHow hard is it for you to pay for the very basics like food, housing, medical care, and heating?Not hard at all09/07/2023HQ-2AnswerDate RecordedPatient Health Questionnaire-2 Iupuz215Finj[facility] [place] of Occupational Health - Occupational Stress QuestionnaireAnswerDate RecordedDo you feel stress - tense, restless, nervous, or anxious, or unable to sleep at night because yourmind is troubled all the time - these days?Rather much09/07/2023 Exercise Vital SignAnswerDate RecordedOn average, how many days per week do you engage in moderate to strenuous exercise (like a brisk walk)?2 days09/07/2023On average, how many minutes do you engage in exercise at this level?20 min 09/07/2023Hunger Vital SignAnswerDate RecordedWithin the past 12 months, you worried that your food would run out before you got the money to buymore.Never true09/07/2023Within the past 12 months, the food you bought just didn't last and you didn't have money to get more.Never true09/07/2023RAPARE - TransportationAnswerDate RecordedIn the past 12 months, has lack of transportation kept you from medical appointments or from getting medications?No 09/07/2023In the past 12 months, has lack of transportation kept you from meetings, work, or from getting things needed for daily living?No09/07/2023 Housing Stability Vital SignAnswerDate RecordedIn the last 12 months, was there a time when you were not able to pay the mortgage or rent on time?No09/07/2023In the last 12 months, how many places have you lived?In the last 12 months, was there a time when you did not have a steady place to sleep or slept in [facility] (including now)?No09/07/2023EducationAnswerDate RecordedWhat is the highest level of school you have completed or the highest degree you have received?Associate degree: occupational, technical, or vocational program 06/22/2024Sex and Gender InformationValueDate RecordedSex Assigned at BirthNot on fileLegal PbpQyyc6910/01/2022 7:11 PM EDTGender IdentityNot on fileSexual OrientationNot on file Last Filed Vital Signs Vital SignReadingTime TakenCommentsBlood Shmqhzix426/7208 7:52 AM EDT Paosp9044 7:52 AM AJMBgrqulditos37.6 ??C (97.8 ??F)01/24/2025 8:32 AM EDTRespiratory Zvvy584001/24/2025 8:32 AM EDTOxygen Kpypoirpsc50%01/24/2025 8:32 AM EDTInhaled Oxygen Concentration--Aaywoa29.3 kg (188 lb)02/22/2025 7:52 AM EDT Khorwd402.9 cm (6')06/29/2024 8:48 AM ESTBody Mass Index25. 8:48 AM EST Plan of Treatment DateTypeDepartmentCare Team (Latest Contact Info)Ruzdnvrfsiu96/19/2026 3:30 PM ESTOffice Visit [facility] [address] [facility] [address] [place] [phone] Eunice Rodríguez, [facility] [address] [facility] [address] [place] [phone] Health MaintenanceDue DateLast DoneCommentsCOVID-19 Vaccine (2024- season) /, 11/08/2020, 10/18/2020Influenza VaccineDiscontinued Pneumococcal Vaccine: Pediatrics (0 to 5 Years) and At-Risk Patients (6 to 64 Years)Aged OutNo longer eligible based on patient's age to complete this topic Insurance Care Teams Team MemberRelationshipSpecialtyStart DateEnd Date Montrell Serrano MD PCP - GeneralFamily Medicine08/10/23 Georgia Davey NP Referring PhysicianFami Qgzkzmms28/16/23 Eunice Rodríguez PMHNP- [address] [place] [phone] Nurse PractitionerPenn Presbyterian Medical Center06/22/24 Jj Swift DO [address] [place] [phone] CjkbqrkqhgwEdmnfcwyj96/4/24
--- OUTSIDE RECORDS SUMMARY | 2025-05-29 14:22 | XMS_ITS | Encounter Summary ---
Author Organization [facility] Address [address] [place] [address] Care Team Providers Care Team Primary Care Physician Name Role Phone Georgia Davey TRANSFORMER MOLDER Unavailable [phone] Georgia Davey NP Unavailable [phone] Montrell Serrano MD Primary Care Provider [phone] Eunice Rodríguez [facility]- Unavailable Jj Swift DO Unavailable [phone] Armen Suggs LPC Unavailable Unavailable Encounter Details DateTypeDepartmentCare Team (Latest Contact Info)Ukybbyunckm99/01/2024Clinisync Result Encounter [facility] External Department Unsolicited Georgia Davey NP [address] [place] [address] Social History Tobacco UseTypesPacks/DayYears UsedDateSmoking Tobacco: NeverAlcohol UseStandard Drinks/WeekCommentsYes0 (1 standard drink = 0.6 oz pure alcohol)1-2 drinks, monthly or less.Social Connection and Isolation PanelAnswerDate RecordedIn a typical week, how many times do you talk on the phone with family, friends, or neighbors?More than three times a week09/07/2023How often do you get together with friends or relatives?Twice a week09/07/2023How often do you attend buddhism or pentecostalism services?More than 4 times per year4Do you belong to any clubs or organizations such as buddhism groups, unions, fraternal or athletic taty ups, or school groups?Patient gmsipmds17/19/2024How often do you attend meetings of the clubs or organizations you belong to?Patient rpfuwkhs39/19/2024re you , , , , never , or living with a partner? Cdghnfs6109/07/2023UDIT-CAnswerDate RecordedQ1: How often do you have a [...] hard at all09/07/2023HQ-2AnswerDate RecordedPatient Health Questionnaire-2 Score0 10/19/2024Fin[facility] [place] of Occupational Health - Occupational Stress QuestionnaireAnswerDate [...] steady place to sleep or [facility])?No09/07/2023Sex and Gender InformationValueDate RecordedSex Assigned at BirthNot on fileLegal SexMale 10/01/2022 7:11 PM EDTGender IdentityNot on fileSexual OrientationNot on file documented as of this encounter Functional Status * AUDIT-C ScoreAnswerDate of VmxbywvpbiOrjesq800/04/2024 8:16 AM Juliana Morales LPN * QuestionAnswerDate [...] the following problems?QuestionAnswerDate of AssessmentAuthorPatient Health Questionnaire-2 Cnqpz449 7:52 AM Juliana Potter LPN * How difficult have these problems made it for you to do your work, take care of things at home, or get along with other people?AnswerDate of Assessment AuthorVery ytouwtjkb66/02/2025 7:52 AM Juliana Potter LPN * Over the last 2 weeks, how often have you been bothered by any of the following problems?QuestionAnswerDate of AssessmentAuthorFeeling nervous, anxious, or on llra594 7:54 AM Juliana Potter LPNNot being able to stop or control ujvaduwt896/02/2025 7:54 AM EDTCollrene Juliana, LPNWorrying too much about different sczhdo119 7:54 AM EDTCollins Juliana, LPNTrouble scmnkiyl980/02/2025 7:54 AM EDTCollins Juliana, LPNBeing so restless that it is hard to sit tefbt396 7:54 AM EDTCollins Juliana, LPNBecoming easily annoyed or gcgzcpuud061/02/2025 7:54 AM EDTCollins, Juliana, LPNFeeling afraid as if something awful might 7:54 AM EDTCollFlower lópezi, LPNGAD-7 Total Stmbc2834/02/2025 7:54 AM EDTCollins Juliana, SECONDARY SET UP MAN * Over the past 2 weeks, how often have you been bothered by any of the following problems?QuestionAnswerDate of AssessmentAuthorLittle interest or pleasure in doing thingsNot at all10/19/2024 7:52 AM EDTCollins, Juliana, SECONDARY SET UP MAN Feeling down, depressed, or hopelessNot at all10/19/2024 [...] some wayNot at all10/19/2024 7:52 AM Juliana Joseu LPNPatient Health Questionnaire-9 Fhfwy3189/02/2025 7:52 AM Juliana Josue LPN documented as of this encounter Plan of Treatment DateTypeDepartmentCare Team (Latest Contact Info)Cksgwejqdjz42/19/2026 3:30 PM ESTOffice Visit [facility] [address] [place] [address] Eunice Rodríguez, [facility] [address] [place] [address] documented as of this encounter Procedures Procedure NamePriorityDate/TimeAssociated DiagnosisCommentsRT PULMONARY FUNCTION TEST09/18/2023 9:07 AM EST documented in this encounter Results * RT PULMONARY FUNCTION TEST (09/18/2023 9:07 AM EST)Anatomical RegionLaterality ModalityOtherSpecimen (Source)Anatomical Location / LateralityCollection Method / VolumeCollection TimeReceived Time09/18/2023 9:07 AM EST Narrative 09/23/2023 7:07 AM EST [facility] ?[address] ? [place] [address] ? Respiratory Report ? Signed ? Patient: SHINE IVEY ?MR#: [id number] ?? : 1980 ?Acct:[id number] ?? Age/Sex: 42 / M ?ADM Date: 09/18/23 ?? Loc: CARD ? Attending Dr: Georgai Davey TRANSFORMER MOLDER ? Ordering Physician: Georgia Davey TRANSFORMER MOLDER ?? Date of Service: 09/18/23 ?? Procedure(s): RT pulmonary function test ?? Accession Number(s): [id number] ? cc: ?[facility] ? Test Date: ?2023-09-18 ?? Pat Name: ? SHINE IVEY ?Department: ? Room: ? - ?? Gender: ? Male ? Oil Well Service Unit Operator: ?? Milton Cline, CAKE MIXER ?? : ?1980 ? Requested By: GEORGIA DAVEY ?? Order Number: [id number] ?Reading MD: ?? Neftaly Alba ? Interpretive Statements ?? Pulmonary function testing was completed according to ATS criteria. Findings ?? were considered accurate and reproducible. Both pre- and post-bronchodilator ?? values utilized for spirometry. ? Spirometry (based on pre-bronchodilator values): ?? -FEV1/FVC: Low normal @ 71% ?? -FEV1: Normal @ 84% ?? -FVC: Normal @ 94% ?? -There is no significant bronchodilator response. ? Lung volumes by plethysmography (based on pre-bronchodilator values): ?? -RV: Normal @ 108% ?? -TLC: Normal @ 100% ? Diffusion capacity: ?? -DLCO: Low normal @ 80% when corrected for Hb 15.9g/dL ? Flow-volume loop: ?? -Mild obstructive pattern ? Impressions: ?? -Spirometry trends towards a mild obstruction pattern. ??There is no ?? bronchodilator response. ??Lung volumes are normal. Low normal diffusion ?? capacity. ??Overall study trends towards a mild COPD/emphysema pattern vs. ?? asthma with loss of a bronchodilator response. ??Clinical correlation ?? required. ? Electronically Signed On 09-23-2023 7:07:11 EST by Neftaly Alba ? Dictated By: ?Neftaly Alba D.O. ? Signed By: ?09/23/23706 ? DD/ 6 ? TD/TT: ? Team Primary Care Physician: Procedure Note Radiology, Radiologist, MD - 09/23/2023 [place] [address] Respiratory Report Signed Patient: SHINE IVEY MMR#: [id number] : 1980Acct:[id number] Age/Sex: 42 / MADM Date: 09/18/23 Loc: CARD Attending Dr: Georgia Davey NP Ordering Physician: Georgia Davey NP Date of Service: 09/18/23 Procedure(s): RT pulmonary function test Accession Number(s): [id number] cc: [facility] Test Date: 2023-09-18 Pat Name: SHINE IVEY Department: Room: - Gender: Male [employer] Service Unit Operator: Milton Cline RRT : 1980 Requested By: GEORGIA DAVEY Order Number: [id number] Reading MD: Neftaly Alba Interpretive Statements Pulmonary function testing was completed according to ATS criteria.Findings were considered accurate and reproducible. Both pre- andpost-bronchodilator values utilized for spirometry. Spirometry (based on pre-bronchodilator values): -FEV1/FVC: Low normal @ 71% -FEV1: Normal @ 84% -FVC: Normal @ 94% -There is no significant bronchodilator response. Lung volumes by plethysmography (based on pre-bronchodilator values): -RV: Normal @ 108% -TLC: Normal @ 100% Diffusion capacity: -DLCO: Low normal @ 80% when corrected for Hb 15.9g/dL Flow-volume loop: -Mild obstructive pattern Impressions: -Spirometry trends towards a mild obstruction pattern. There is no bronchodilator response. Lung volumes are normal. Low normal diffusion capacity. Overall study trends towards a mild COPD/emphysema pattern vs. asthma with loss of a bronchodilator response. Clinical correlation required. Electronically Signed On 09-23-2023 7:07:11 EST by Neftaly Alba Dictated By: Neftaly Alba D.O. Signed By:09/23/23706 DD/ 6 TD/TT: Team Primary Care Physician: Authorizing ProviderResult TypeResult StatusLisa Davey NPCLINISYNC IMAGING Final Result documented in this encounter Visit Diagnoses Not on filedocumented in this encounter Care Teams Team MemberRelationshipSpecialtyStart DateEnd Date Montrell Serrano MD PCP - GeneralFamily Medicine08/10/23 Georgia Davey NP Nurse PractitionerFamily Medicine07/20/2311 Georgia Davey NP Referring PhysicianFamily Blvbcvcq58/16/23 [facility] [address] [place] [phone] Nurse PractitionerBehavioral Kaisjg43/4/24 Jj Swift DO [address] [place] [phone] JfhxababkhiNsbkjocgy13/4/24 Armen Suggs LPC Social WorkerBehavioral Healthdocumented as of this encounter
--- OUTSIDE RECORDS SUMMARY | 2025-05-29 14:22 | XMS_ITS | Encounter Summary ---
Author Organization [facility] Address [address] [place] [address] Care Team Providers Care Lumber Carrier Operator Name Role Phone Georgia Davey NP Unavailable [phone] Montrell Serrano MD Primary Care Provider [phone] Eunice Rodríguez PMP- Unavailable Jj Swift DO Unavailable [phone] Reason for Visit * ReasonOnset DateCommentsMed Yeakte7105/17/2025 Encounter Details DateTypeDepartmentCare Team (Latest Contact Info)Yvldsxzljau34/29/2025Refill [facility] [address] [place] [id number] Juliana Tillman LPN Bipolar 2 disorder (HCC); SAMRA (generalized anxiety disorder) Social History Tobacco UseTypesPacks/DayYears UsedDateSmoking Tobacco: NeverSmokeless Tobacco: NeverAlcohol UseStandard Drinks/WeekCommentsNot Currently0 (1 standard drink = 0.6 oz pure alcohol)caffiene- 3 sweet tea and occasion popSocial Connection and Isolation PanelAnswerDate RecordedIn a typical week, how many times do you talk on the phone with family, friends, or neighbors?More than three times a week 09/07/2023How often do you get together with friends or relatives?Twice a week 09/07/2023How often do you attend tenriism or pentecostal services?More than 4 times per year09/07/2023o you belong to any clubs or organizations such as tenriism groups, unions, fraternal or athletic groups, or school groups?Patient declined 09/07/2023How often do you attend meetings of the clubs or organizations you belong to?Patient osukmwfw09/19/2024re you , , , , never , or living with a partner?Ptqsois5909/07/2023UDIT-C AnswerDate RecordedQ1: How often do you have [...] heating?Not hard at all09/07/2023HQ-2AnswerDate RecordedPatient Health Questionnaire-2 Aifqb404Finprimary [facility]'s hospital [place] of Occupational Health - Occupational Stress QuestionnaireAnswerDate [...] steady place to sleep or slept in ashelter (including now)?No09/07/2023EducationAnswerDate RecordedWhat is the highest level of school you have completed or the highest degree you have received?Associate degree: occupational, technical, or vocational program 06/22/2024Sex and Gender InformationValueDate RecordedSex Assigned at BirthNot on fileLegal YinYkkf9510/01/2022 7:11 PM EDTGender IdentityNot on fileSexual OrientationNot on filedocumented as of this encounter Miscellaneous Notes * Telephone Encounter - Juliana Tillman LPN - 05/17/2025 12:51 PM EDT Estella called to inquire about a script for Ingrezza that was cancelled in Mar. This nurse explained the situations that had been currently going on. [facility]. She stated that since he is on PT assistance script go to them. Scripts only go to [place] if they do not have pt assistance. Informed her that aPA was complete and closed sent to [facility]. She stated that it was not needed. Going forward all scripts be sent to [facility] He is due for pt assistance renewal Jun which they will send reminder. They sent patient refill and will be receiving Thursday. They are requesting new script be sent. This nurse will send. documented in this encounter Plan of Treatment DateTypeDepartmentCare Team (Latest Contact Info)Iddtuylxllp68/19/2026 3:30 PM ESTOffice Visit [facility] [address] [facility] [address] [place] [address] Eunice Rodríguez, HNP- [address] [facility] [address] [place] [address] documented as of this encounter Visit Diagnoses Diagnosis Bipolar 2 disorder (HCC) Other bipolar disorders SAMRA (generalized anxiety disorder) Generalized anxiety disorder documented in this encounter Additional Health Concerns AssessmentNoted TimePHQ-9 Depression Total Score: 12010/19/2024 7:52 AM EDT documented as of this encounter Care Teams Team MemberRelationshipSpecialtyStart DateEnd Date Montrell Serrano MD PCP - GeneralFamily Medicine08/10/23 Georgia Davey NP Referring PhysicianFamily Gtldfxwm51/16/23 [facility] [address] [facility] [address] [place] [id number] Nurse PractitionerBehavioral Gcynmb21/4/24 Jj Swift DO [address] [facility] [address] [place] [id number] MnqikfcqfxeTleksvlye96/4/24documented as of this encounter
--- OUTSIDE RECORDS SUMMARY | 2025-05-29 14:22 | XMS_ITS | Clinical Summary ---
Author Organization [facility] Address [address] [place], [place] [id number] Care Team Providers Care Armhole Presser Name Role Phone Unavailable Primary Care Provider Unavailabl e Allergies Active AllergyReactionsCriticalityNoted DateCommentsMorphineHives,Unknown 09/16/2018 Severe itching NrezscmgikvZbslCeq88/14/2024 Medications MedicationSigDispense QuantityRefillsLast FilledStart DateEnd DateStatus FLUoxetine (PROZAC) 20 mg capsule Take 20 mg by mouth.5Active valbenazine (INGREZZA) 40 mg capsule Take 40 mg by mouth.5Active lamoTRIgine (LAMICTAL) 25 mg tablet Take 50 mg by mouth.5Active Family History Medical HistoryRelationCommentsMultiple SclerosisFatherRelationStatusComments Father Social History Tobacco UseTypesPacks/DayYears UsedDateSmoking Tobacco: NeverSmokeless Tobacco: Never Tobacco Cessation:Counseling Given: Not Answered Alcohol UseStandard Drinks/WeekCommentsYes0 (1 standard drink = 0.6 oz pure alcohol)rarePHQ-2AnswerDate RecordedPHQ-2 ntmgz395Sex and Gender InformationValueDate RecordedSex Assigned at BirthNot on fileLegal SexMale 11/29/2024 8:44 AM EDTGender IdentityNot on fileSexual OrientationNot on file Last Filed Vital Signs Vital SignReadingTime TakenCommentsBlood Ronybvpw902/8007 9:28 AM EDT Wmprq5017 9:28 AM EDTTemperature--Respiratory Rate--Oxygen Tcibnlbhfe43% 02/03/2025 9:28 AM EDTInhaled Oxygen Concentration--Weight--Height--Body Mass Index-- Plan of Treatment Health MaintenanceDue DateLast DoneCommentsAnxiety Feasdkgal78/12/2001Depression Metmrqyjd87/12/2001HIV Yaqbhxpca12/12/2001Hepatitis C Zmrcuyrnj25/12/2001 DTaP,Tdap,Td Vaccine (1 - Tdap)2001Hepatitis B Vaccine (1 of 3 - 19+ 3- dose series)2001HPV Vaccine (1 - 3-dose SCDM series)2009Lipid Lrdsiofff77/12/2018Covid-19 Vaccine ( - 2024- season)2025Influenza Vaccine (#1)2025 Insurance [place] [id number]
--- OUTSIDE RECORDS SUMMARY | 2025-05-29 14:22 | XMS_ITS | Clinical Summary ---
Author Organization [facility] Address [id number] [place] [address] Care Team Providers Care Internal Controls Consultant Name Role Phone Amari Holloway MD Primary Care Provider [phone] Allergies Active AllergyReactionsCriticalityNoted LsyjNrxycflxAegsdryy58/28/2019 Severe itching Medications MedicationSigDispense QuantityRefillsLast FilledStart DateEnd DateStatus citalopram (CeleXA) 20 mg tablet Take 20 mg by mouth daily.Active ARIPiprazole (ABILIFY) 20 mg tablet Take 20 mg by mouth daily.Active benztropine (COGENTIN) 2 mg tablet Take 2 mg by mouth 2 (two) times a day.Active Social History Tobacco UseTypesPacks/DayYears UsedDateSmoking Tobacco: NeverSmokeless Tobacco: NeverAlcohol UseStandard Drinks/WeekCommentsNo0 (1 standard drink = 0.6 oz pure alcohol)AUDIT-CAnswerDate RecordedFrequency of Alcohol ConsumptionNever 09/16/2018Average Number of DrinksNot on file09/16/2018Frequency of Binge DrinkingNot on file09/16/2018ChildcareAnswerDate RecordedChildcareUnknown 2018EmploymentAnswerDate DtvnspqaSvxgohgpmqMjratfw95/12/2019Purpose - Life AnswerDate RecordedPurpose and direction in ispcRptzyzg19/11/2021Sex and Gender InformationValueDate RecordedSex Assigned at BirthNot on fileLegal SexMale 02/22/2015 11:36 AM EDTGender IdentityNot on fileSexual OrientationNot on file Last Filed Vital Signs Vital SignReadingTime TakenCommentsBlood Pressure--Pulse--Temperature-- Respiratory Rate--Oxygen Saturation--Inhaled Oxygen Concentration--Wchohe45.2 kg (190 lb)09/16/2018 10:04 AM AOHBnkscb193.9 cm (6')09/16/2018 10:04 AM ESTBody Mass Index25.77009/16/2018 10:04 AM EST Plan of Treatment Health MaintenanceDue DateLast DoneCommentsDepression Rwdjnrcbo32/12/1995Tobacco Rxlsxuypg81/12/1995Adult BMI Gnklhqcij25/12/2001DTaP,Tdap and Td Vaccines (1 - Tdap)2001Influenza Frkqdec8903/20/2025 Medical Devices Not on file Insurance Care Teams Team MemberRelationshipSpecialtyStart DateEnd Date Amari Holloway MD [address] [place] [address] PCP - GeneralFamily Medicine09/16/18
--- OUTSIDE RECORDS SUMMARY | 2025-05-29 14:30 | XMS_ITS | CCD ---
Author Organization [facility] Care Team Providers Care Director Engineering Name Role Phone AICHHOLZ, FOURCHETTE SEWER [place] Admitting Unavailable AICHHOLZ, FOURCHETTE SEWER [place] Attending Unavailable AICHHOLZ, FOURCHETTE SEWER [place] Primary Care Unavailable AICHHOLZ, FOURCHETTE SEWER [place] Consulting Unavailable AICHHOLZ, FOURCHETTE SEWER [place] Admitting Unavailable AICHHOLZ, FOURCHETTE SEWER [place] Attending Unavailable AICHHOLZ, FOURCHETTE SEWER [place] Primary Care Unavailable AICHHOLZ, FOURCHETTE SEWER [place] Consulting Unavailable AICHHOLZ, FOURCHETTE SEWER [place] Admitting Unavailable AICHHOLZ, FOURCHETTE SEWER [place] Attending Unavailable AICHHOLZ, FOURCHETTE SEWER [place] Primary Care Unavailable DR LISSETH SANTOS V Consulting Unavailable AICHHOLZ, FOURCHETTE SEWER [place] Consulting Unavailable AICHHOLZ, FOURCHETTE SEWER [place] Admitting Unavailable AICHHOLZ, FOURCHETTE SEWER [place] Attending Unavailable AICHHOLZ, FOURCHETTE SEWER [place] Primary Care Unavailable Aichholz LAPELER, [place] Unavailable Aichholz LAPELER, [place] Unavailable Zach MEI, Montrell Primary Care Provider Zach MEI, Montrell Primary Care Provider Aichholz LAPELER, [place] Unavailable Kwame Rodríguez NP Unavailable Nadia Swift DO Unavailable [phone] Marcos [facility] BOCANEGRA Unavailable [phone] Armen Hernández LPC Unavailable Unavailable Unavailable Primary Care Provider Unavailabl e Aichholz LAPELER, [place] Unavailable Montrell Serrano MD Primary Care Provider KWAME RODRÍGUEZ Attending Unavailable ARMEN HERNÁNDEZ Attending Unavailable RODRÍGUEZ, KWAME Referring Unavailable RODRÍGUEZ, KWAME Attending Unavailable RODRÍGUEZ, KWAME Attending Unavailable RODRÍGUEZ, KWAME Attending Unavailable RODRÍGUEZ, KWAME Attending Unavailable AICHHOLZ, [place] Attending Unavailable NADIA SWIFT Attending Unavailable AICHHOLZ, [place] Referring Unavailable RODRÍGUEZ, KWAME Attending Unavailable AICHHOLZ, [place] Attending Unavailable AICHHOLZ, [place] Attending Unavailable RODRÍGUEZ, KWAME Attending Unavailable RODRÍGUEZ, KWAME Attending Unavailable RODRÍGUEZ, KWAME Attending Unavailable NABEEL, JIM Attending Unavailable AICHHOLZ, [place] Attending Unavailable RODRÍGUEZ, KWAME Attending Unavailable NABEEL, JIM Referring Unavailable JN MCCULLOUGH Attending Unavailable RODRÍGUEZ, KWAME Attending Unavailable HASNISTEVO Allen Attending Unavailable PATRICIA, OLENA Referring Unavailable SELF Referring Unavailable PATRICIA, OLENA Attending Unavailable PATRICIA, OLENA Referring Unavailable AICHHOLZ, [place] J Primary Care Physician Taras STUART Attending Unavailable Taras STUART Attending Unavailable Aiczeferino LAPELER, [place] Unavailable Armen Hernández LPC Unavailable Unavailable Allergies Allergy ClassificationReported Allergen(s)Allergy TypeDate of OnsetReaction(s) Facility (4 sources)Morphine; Translations: [MORPHINE]Drug Jjkwwro66-78-6385Mod [facility] Repository (4 sources)Penicillin; Translations: [penicillin]Drug Xsnaxwj29-52-2808Wmpynllt of skin (disorder)[facility] Repository (20 sources)Morphine; Translations: [morphine]Drug Zbaxtcg53-07-0221Iwadq, Unknown, Weal (disorder)[facility] (20 sources)Penicillins; Translations: [PENICILLINS]Drug Rttffxd43-61-6118Tvnr [facility] (4 sources)PenicillinsDrug Svutugv96-50-3324[facility] Medications Current Medications MedicationDrug Class(es)DatesSig (Normalized)Sig (Original)ARIPiprazole 10 mg oral tablet (20 sources)Atypical AntipsychoticStart: 04-17-2024 End: 72-28-0544zmdv 1 tablet by mouth once dailyARIPiprazole (Abilify) 10 MG tablet Indications: Bipolar 2 disorder (CMS/HCC) Take 1 tablet (10 mg)by mouth Daily 30 tablet 2 08/10/2024 09/14/2024 Discontinued (Ineffective)Start: 11-17-2023 End: 80-88-0961souz 1 tablet by mouth once dailyARIPiprazole (Abilify) 15 MG tablet Take 15 mg by mouth Daily 11/17/2023 04/19/2024 Discontinued (Therapy completed)take 1 tablet by mouth in the morningARIPiprazole (Abilify) 30 MG tablet Take 1 tablet by mouth in the morning. 0 Activebetamethasone 0.5 mg/ml / clotrimazole 10 mg/ml topical cream (8 sources)Azole Antifungal, CorticosteroidStart: 06-13-2024 End: 69-54-3071swjirsluyned-betamethasone (Lotrisone) cream Indications: Rash Apply topically 2 (two) times a day for 28 days 45 g 06/13/2024 07/11/2024 Activebisacodyl 5 mg delayed release oral tablet (2 sources)Stimulant LaxativeStart: 06-29-2024 End: 15-51-8898dahn 1 tablet by mouth oncebisacodyl (Dulcolax) 5 MG EC tablet Indications: Rectal bleeding Take 1 tablet (5 mg) by mouth 1 time for 1 dose Do not crush, chew, or split. Take as detailed on clinic hand out for colonoscopy prep4 tablet 06/29/2024 06/29/2024 Activechlorhexidine gluconate 1.2 mg/ml mouthwash (3 sources)Start: 12-04-2023 End: 82-71-4039fjnw 15 mL by mouth twice dailychlorhexidine (Peridex) 0.12 % solution SWISH AND SPIT 15 MLS BY MOUTH TWICE A DAY - START 24 HOURSAFTER SURGERY 12/04/2023 04/19/2024 Discontinued (Therapy completed)deutetrabenazine 9 mg oral tablet (15 sources) End: 41-74-6589izdmvbnfavkedupo (Austedo) 9 MG tablet 24mg and 12mg 05/05/2024 Discontinued (Therapy completed)deutetrabenazine (Austedo) 9 MG tablet 2 tablets 0 ActiveFLUoxetine 20 mg oral capsule (20 sources)Serotonin Reuptake InhibitorStart: 61-04-7229BAQlnhuzuc 20 mg Cap 20 mg = 1 cap(s) Start Date: 05/08/25 Status: Ordered Repeat number: 1Start: 11-30-2024 End: 33-34-5343iybd 1 capsule by mouth once dailyFLUoxetine (PROzac) 20 MG capsule Indications: SAMRA (generalized anxiety disorder) , Tardive dyskinesia Take 1 capsule (20 mg) by mouth Daily 30 capsule 5 03/29/2025 04/28/2025 Active lamoTRIgine 25 mg oral tablet (20 sources)Mood Stabilizer, Anti-epileptic AgentStart: 61-45-7841evkrbkmidfu 25 mg Tab 25 mg = 1 tab(s) Start Date: 05/08/25 Status: Ordered Repeat number: 1 Start: 11-09-2024 End: 04-05-9764ctxd 2 tablets by mouth once dailylamoTRIgine (LaMICtal) 25 MG tablet Indications: Bipolar 2 disorder (HCC) , Tardive dyskinesia Take2 tablets (50 mg) by mouth Daily 60 tablet 5 03/29/2025 04/28/2025 ActiveStart: 10-19-2024 End: 39-15-0071emjg 1 tablet by mouth once daily, then take 2 tablets by mouth once dailylamoTRIgine (LaMICtal) 25 MG tablet Indications: Bipolar 2 disorder (CMS/HCC) Take 1 tablet (25 mg)by mouth Daily for 14 days, THEN 2 tablets (50 mg) Daily for 14 days. 42 tablet 10/19/2024 11/09/2024 Discontinued (Dose adjustment)24 hr loratadine 10 mg / pseudoephedrine sulfate 240 mg extended release oral tablet (3 sources)alpha-Adrenergic Agonist End: 66-65-7626sebg 10-240 mg by mouth every twenty-four hoursloratadine- pseudoephedrine ER (Claritin-D 24-hour) 10-240 MG 24 hr tablet Take 1 tablet by mouth Daily Do not crush, chew, or split. 04/19/2024 Discontinued (Therapy completed)Lumateperone Tosylate (Caplyta) 10.5 MG capsule (2 sources)Start: 09-14-2024 End: 85-84-5885actg 1 capsule by mouth once dailyLumateperone Tosylate (Caplyta) 10.5 MG capsule Indications: Bipolar 2 disorder (CMS/HCC) Take 10.5mg by mouth Daily 30 capsule 09/14/2024 10/14/2024 ActiveLumateperone Tosylate (Caplyta) 21 MG capsule (4 sources)Start: 10-05-2024 End: 12-98-7684wbwx 1 capsule by mouth at mealtimeLumateperone Tosylate (Caplyta) 21 MG capsule Indications: Bipolar 2 disorder (CMS/HCC) Take 21 mg by mouth in the evening. Take with meals 30 capsule 10/05/2024 10/19/2024 Discontinued (Side effects)Start: 10-05-2024 End: 55-83-3191lutx 1 capsule by mouth at mealtimeLumateperone Tosylate (Caplyta) 21 MG capsule Indications: Bipolar 2 disorder (CMS/HCC) Take 21 mg by mouth in the evening. Take with meals 30 capsule 10/05/2024 11/04/2024 Active montelukast 10 mg oral tablet (3 sources)Leukotriene Receptor Antagonist End: 52-19-2122uixl 1 tablet by mouth at bedtimemontelukast (Singulair) 10 MG tablet Take 10 mg by mouth at bedtime 04/19/2024 Discontinued (Therapy completed)naproxen 500 mg oral tablet (1 source)Nonsteroidal Anti-inflammatory Drugtake 1 tablet by mouth in the morningnaproxen (Naprosyn) 500 MG tablet Take 1 tablet by mouth in the morning and 1 tablet in the evening. Take with meals. 0 Activepolyethylene glycol 3350 87072 mg powder for oral solution (2 sources)Osmotic LaxativeStart: 06-29-2024 End: 27-77-6556bltb 17 g by mouth oncepolyethylene glycol, PEG, 3350 (Glycolax) 17 GM/SCOOP powder Indications: Colonoscopy Take 238 g bymouth 1 (one) time for 1 dose Take as detailed from clinic hand out for colonoscopy prep 238 g 06/2906/29/2024 Toneiw24 hr propranolol hydrochloride 60 mg extended release oral capsule (20 sources)beta-Adrenergic BlockerStart: 08-15-2024 End: 75-52-5524idqy 1 capsule by mouth once dailypropranolol LA (Inderal LA) 60 MG 24 hr capsule Indications: Tremor Take 1 capsule (60 mg) by mouthDaily Do not crush, chew, or split. 90 capsule 11/30/2024 02/22/2025 Discontinued (Therapy completed)valbenazine 80 mg oral capsule (20 sources)Start: 20-19-8908ncaj 1 capsule by mouth once dailyIngrezza 80 mg oral capsule 80 mg = 1 cap(s), Oral, Daily Start Date: 05/08/25 Status: Ordered Repeat number: 1Start: 03-29-2025 End: 47-06-0628dfva 1 capsule by mouth once dailyvalbenazine tosylate (Ingrezza) 80 MG capsule Indications: Bipolar 2 disorder (HCC) , SAMRA (generalized anxiety disorder) Take 1 capsule (80 mg) by mouth Daily 30 capsule 1 03/29/2025 03/29/2025 Discontinued (Reorder)Start: 01-25-2025 End: 11-76-5589cpffakqitoo (INGREZZA) 40 mg capsule Take 40 mg by mouth. 01/25/2025 ActiveStart: 07-19-2024 End: 17-79-7874rspv 1 capsule by mouth once dailyvalbenazine tosylate (Ingrezza) 40 MG capsule Indications: Tardive dyskinesia Take 1 capsule (40 mg) by mouth Daily 30 capsule 07/19/2024 10/19/2024 Discontinued (Dose adjustment)Valbenazine Tosylate (Ingrezza) 60 MG capsule (19 sources)Start: 02-22-2025 End: 75-08-7817ryvt 1 capsule by mouth once daily in the morningValbenazine Tosylate (Ingrezza) 60 MG capsule Indications: Tardive dyskinesia Take 1 capsule by mouth Daily in the Morning 90 capsule 3 02/22/2025 03/29/2025 Discontinued (Dose adjustment)Start: 02-22-2025 End: 29-54-8179edvh 1 capsule by mouth once daily in the morningValbenazine Tosylate (Ingrezza) 60 MG capsule Indications: Tardive dyskinesia Take 1 capsule by mouth Daily in the Morning 90 capsule 3 02/22/2025 05/23/2025 ActiveStart: 11-30-2024 End: 51-95-2373zdnm 1 capsule by mouth once dailyValbenazine Tosylate (Ingrezza) 60 MG capsule Indications: Tardive dyskinesia Take 1 capsule by mouth Daily 30 capsule 10 11/30/2024 01/25/2025 DiscontinuedStart: 79-35-1211tzdo 1 capsule by mouth once dailyValbenazine Tosylate (Ingrezza) 60 MG capsule Indications: Tardive dyskinesia Take 1 capsule by mouth Daily 30 capsule 10 11/30/2024 Active Start: 11-30-2024 End: 55-27-0820knst 1 capsule by mouth once dailyValbenazine Tosylate (Ingrezza) 60 MG capsule Indications: Tardive dyskinesia Take 1 capsule by mouth Daily 30 capsule 10 11/30/2024 12/30/2024 ActiveStart: 11-02-2024 End: 45-72-0591rypk 1 capsule by mouth once dailyValbenazine Tosylate (Ingrezza) 60 MG capsule Indications: Tardive dyskinesia Take 1 capsule by mouth Daily 30 capsule 10 11/02/2024 11/30/2024 Discontinued (Reorder)Start: 11-02-2024 End: 51-71-8111fqys 1 capsule by mouth once dailyValbenazine Tosylate (Ingrezza) 60 MG capsule Indications: Tardive dyskinesia Take 1 capsule by mouth Daily 30 capsule 10 11/02/2024 12/02/2024 ActiveStart: 10-19-2024 End: 26-40-2220sjjo 1 capsule by mouth once dailyValbenazine Tosylate (Ingrezza) 60 MG capsule Indications: Tardive dyskinesia Take 60 mg by mouth Daily 30 capsule 1 10/19/2024 11/18/2024 Active Completed/Discontinued Medications MedicationDrug Class(es)DatesSig (Normalized)Sig (Original)Deutetrabenazine ER (Austedo XR) 12 MG tablet sustained-release 24 hour (11 sources) End: 22-07-1417vilx 1 tablet by mouth once daily, then take 1 tablet by mouth every twenty-four hoursDeutetrabenazine ER (Austedo XR) 12 MG tablet sustained- release 24 hour Take 12 mg by mouth Daily 06/22/2024 Discontinued (Dose adjustment)take 1 tablet by mouth once daily, then take 1 tablet by mouth every twenty-four hoursDeutetrabenazine ER (Austedo XR) 12 MG tablet sustained-release 24 hour Take 12 mg by mouth Daily ActiveDeutetrabenazine ER (Austedo XR) 24 MG tablet sustained-release 24 hour (11 sources) End: 37-71-8343rdwz 1 tablet by mouth once daily, then take 1 tablet by mouth every twenty-four hoursDeutetrabenazine ER (Austedo XR) 24 MG tablet sustained- release 24 hour Take 24 mg by mouth Daily 06/22/2024 Discontinued (Dose adjustment)take 1 tablet by mouth once daily, then take 1 tablet by mouth every twenty-four hoursDeutetrabenazine ER (Austedo XR) 24 MG tablet sustained-release 24 hour Take 24 mg by mouth Daily ActiveDeutetrabenazine ER (Austedo XR) 42 MG tablet sustained-release 24 hour (8 sources)Start: 06-22-2024 End: 78-01-6137dblj 1 tablet by mouth once daily, then take 1 tablet by mouth every twenty-four hoursDeutetrabenazine ER (Austedo XR) 42 MG tablet sustained- release 24 hour Indications: Tardive dyskinesia Take 42 mg by mouth Daily 30 tablet 11 06/22/2024 07/19/2024 Discontinued (Side effects)Start: 06-22-2024 End: 91-60-9470xjoc 1 tablet by mouth once daily, then take 1 tablet by mouth every twenty-four hoursDeutetrabenazine ER (Austedo XR) 42 MG tablet sustained- release 24 hour Indications: Tardive dyskinesia Take 42 mg by mouth Daily 30 tablet 11 06/22/2024 07/22/2024 Active Problems Active Problems Problem ClassificationProblemDateDocumented DateEpisodic/ChronicAdjustment disorders (1 source)Adjustment disorder with mixed anxiety and depressed mood; Translations: [Adjustment disorder with mixed anxiety and depressed mood] 14-38-1230KpwbicpOwucasx disorders (20 sources)Generalized anxiety disorder; Translations: [Generalized anxiety disorder]Onset: 119563-10-6999JausqhkVcvexwhl of urinary tract (2 sources)Kidney stone; Translations: [Calculus of kidney]Onset: 05-08-2025 EpisodicDisorders of teeth and jaw (1 source)Loss of teeth due to oslyuidang10-81-7119KyfedbiFpys disorders (20 sources)Bipolar I disorder; Translations: [Bipolar disorder, unspecified] Onset: 09-08-2023 Resolved: 089717-99-1199DtmfrsjHqcze gastrointestinal disorders (1 source)Fudlyynq60-12-6967FcdervzcIfpmv hereditary and degenerative nervous system conditions (9 sources)Functional movement disorder; Translations: [Extrapyramidal and movement disorder, unspecified]74-65-1458RmriyyyEykca hereditary and degenerative nervous system conditions (1 source)Extrapyramidal and movement disorder, unspecified; Translations: [Functional movement disorder]Onset: 68-22-6054QqiubapIqwph hereditary and degenerative nervous system conditions (1 source)Drug induced subacute dyskinesia; Translations: [Dyskinesia, tardive] Onset: 42-28-3349KqhjcgqsUtbsr nervous system disorders (2 sources)Parkinsonism due to drug; Translations: [Other drug induced secondary parkinsonism]38-56-6740MyintotJtepq nervous system disorders (1 source)Other drug induced secondary parkinsonism; 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)]Onset: 06-68-3031VgaolabGlelx nervous system disorders (5 sources)Ataxia; Translations: [Ataxia, unspecified]99-37-0025UrsuwilfTmwmu non-traumatic joint disorders (20 sources)Derangement of right shoulder joint; Translations: [Other specific joint derangements of right shoulder, not elsewhere classified]Onset: 06-10-2023 28-98-8168ZcbkbzgSqkrh screening for suspected conditions (not mental disorders or infectious disease) (1 source)Encounter for screening for malignant neoplasm of prostate; Translations: [Screening for malignant neoplasm done]Onset: 37-49-0119Itsvhhht Other upper respiratory disease (1 source)Seasonal kqsweor97-38-2158VtwntbxIibevtaqbgmk (1 source)Patient encounter dojqdb76-19-3507 Past or Other Problems Problem ClassificationProblemDateDocumented DateEpisodic/ChronicCardiac dysrhythmias (4 sources)Palpitations; Translations: [PALPITATIONS]Onset: 28-98-6552Lazupbnn Gastrointestinal hemorrhage (20 sources)Rectal hemorrhage; Translations: [Hemorrhage of anus and rectum] Onset: 06-13-2024 Resolved: 910875-63-5153XcoltleqWbhehbpjxpwvo symptoms and ill-defined conditions (17 sources)Polyuria; Translations: [Polyuria]Onset: EpisodicMood disorders (20 sources)Mood disordersOnset: 09-14-2024 Resolved: Other hereditary and degenerative nervous system conditions (20 sources)Tardive dyskinesia; Translations: [Drug induced subacute dyskinesia] Onset: 233502-17-7853AqwzumyyFyzpp lower respiratory disease (1 source)Dyspnea, unspecified; Translations: [DYSPNEA UNSPECIFIED]Onset: 34-20-7445CotwwkxoOgdtn lower respiratory disease (20 sources)Dyspnea; Translations: [Dyspnea, unspecified]Onset: 09-08-2023 Resolved: 395721-89-6024LcrkacnkYnsmu lower respiratory disease (20 sources)Wheezing; Translations: [Wheezing]Onset: 09-08-2023 Resolved: 293820-55-5425TdypzrerZqkvv nervous system disorders (20 sources)Tremor; Translations: [Tremor, unspecified]Onset: 04-19-2024 63-11-8541VpsmheiyKufdm non-traumatic joint disorders (15 sources)Joint stiffness; Translations: [Stiffness of unspecified joint, not elsewhere classified]Onset: 103655-73-8771IyuxrakcFrhdj nutritional; endocrine; and metabolic disorders (20 sources)Body mass index 25-29 - overweight; Translations: [Overweight]Onset: 695404-73-6742UdbocugpFmfcb nutritional; endocrine; and metabolic disorders (16 sources)Unintentional weight loss; Translations: [Abnormal weight loss] Onset: 704087-33-8052ZfhrbhtdXsugh skin disorders (20 sources)Eruption; Translations: [Rash and other nonspecific skin eruption] Onset: 06-13-2024 Resolved: 833570-30-3796TrheyoqaNgoqh skin disorders (15 sources)Excessive sweating; Translations: [Generalized hyperhidrosis]Onset: 934845-51-2278LalliwdtTpulfsgm codes; unclassified (20 sources)History of arthroscopic procedure on shoulder; Translations: [Other specified postprocedural states]Onset: 217480-10-9519Mmohtgqb Results Test NameValueInterpretationReference RangeFacilityAmbulatory Visit Summaryon 24-21-8982Zbfkfktmgh Visit SummaryAmbulatory Visit Summary TAHIRA AGUSTIN :1980 Visit Date:05/08/2025 Ambulatory Visit Instructions Your Diagnosis Kidney stones Urinary frequency Screening PSA (prostate specific antigen) Your Care Team Attending Physician - Taras STUART MD Primary Care Physician - [place] DAVEY CNP This Is Your Medications List Contact prescribing physician if questions or concerns fluoxetine (FLUoxetine 20 mg Cap) lamotrigine (lamotrigine 25 mg Tab) valbenazine (Ingrezza 80 mg oral capsule) Procedures Performed H/O: vasectomy, History of cholecystectomy, History of repair of musculotendinous cuff of shoulder. Discharge Vitals Heart Rate (Peripheral) 81 Blood Pressure 107/59 Height 184 cm Height 72 in Weight 84.9 kg Weight 187.172 lb BMI 25.08 What to do next You Need to Schedule the Following Appointments Follow Up with SADE MEI, [place], ELENO When: Comments: sched cysto, L URS, laser litho, poss stent placement Where: [address] [place] [address] Medications What How Much When Instructions Unchanged fluoxetine (FLUoxetine 20 mg Cap) 1 Capsules Contact prescribing physician if questions or concerns Unchanged lamotrigine (lamotrigine 25 mg Tab) 1 Tablets Contact prescribing physician if questions or concerns Unchanged valbenazine (Ingrezza 80 mg oral capsule) 1 Capsules By Mouth Every day Contact prescribing physician if questions or concerns Allergies morphine (Hives) penicillin (Rash) Problems Ongoing - Any problem that you are currently receiving treatment for. 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 Bipolar I disorder Dyspnea Eruption Rectal hemorrhage Wheezing Patient Survey You may receive a survey via text or e-mail asking about your office visit. Please share your experience with us by completing your survey. We appreciate your feedback and thank you for choosing us for your care. Education Materials Ureteral Stent Implantation, Care After The following information offers guidance on how to care for yourself after your procedure. Your health care provider may also give you more specific instructions. If you have problems or questions, contact your health care provider. What can I expect after the procedure? After the procedure, it is common to have: ??? Nausea. ??? Mild pain when you urinate. You may feel this pain in your lower back or lower abdomen. The pain should stop within a few minutes after you urinate. This pattern may last for up to 1 week. ??? A small amount of blood in your urine for several days. Follow these instructions at home: Medicines ??? Take oqit-zbz-hqtgnwv and prescription medicines only as told by your health care provider. ??? If you were prescribed antibiotics, take them as told by your health care provider. Do not stop using the antibiotic even if you start to feel better. ??? If you were given a sedative during the procedure, it can affect you for several hours. Do not drive or operate machinery until your health care provider says that it is safe. ??? Ask your health care provider if the medicine prescribed to you: ? Requires you to avoid driving or using machinery. ? Can cause constipation. You may need to take these actions to prevent or treat constipation: ? Take pehe-qex-wnwmlvw or prescription medicines. ? Eat foods that are high in fiber, such as beans, whole grains, and fresh fruits and vegetables. ? Limit foods that are high in fat and processed sugars, such as fried or sweet foods. Activity ??? Rest as told by your health care provider. ??? Do not sit for a long time without moving. Get up to take short walks every 1???2 hours. This will improve blood flow and breathing. Ask for help if you feel weak or unsteady. ??? Return to your normal activities as told by your health care provider. Ask your health care provider what activities are safe for you. General instructions ??? If you have a catheter: ? Follow instructions from your health care provider about taking care of your catheter and collection bag. ? Do not take baths, swim, or use a hot tub until your health care provider approves. Ask your healthcare provider if you may take showers. You may only be allowed to take sponge baths. ??? Drink enough fluid to keep your urine pale yellow. ??? Do not use any products that contain nicoti (more content not included)...[facility]-63-5770WYVHREBGDNX/PT/Speech Visit (PHYTMN) TAHIRA AGUSTIN ([id number]) 1980 M Date Time Provider Department 02/16/25 7:45 AM MYRIAM LUIS Date Time Provider Department Center 02/16/2025 7:45 AM [id number] LUIS Reason for Visit: PT Discharge [752] Visit Diagnoses: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] Dyskinesia, tardive [G24.01] Allergies As of Date: 02/16/2025 Noted Allergy Reaction MORPHINE 09/16/2018 4 - Hives 16 - Unknown Comments: Severe itching PENICILLINS 09/02/2023 2 - Rash Date Reviewed: 02/03/2025 Reviewed by: Selvin Boyd MA - Fully Assessed Prescriptions as of 04/28/2025 - FLUoxetine (PROZAC) 20 mg capsule Take 20 mg by mouth. - valbenazine (INGREZZA) 40 mg capsule Take 40 mg by mouth. - lamoTRIgine (LAMICTAL) 25 mg tablet Take 50 mg by mouth.NormalProMedica Bay Park HospitalOV 90-04-0737WISTEqkony Visit (NREUS2) TAHIRA AGUSTIN ([id number]) 1980 M Date Time Provider Department 02/15/25 8:00 AM STEVO GARCIA NREUS2 During your visit today, we recorded the following information about you: Stevo Garcia PSYD 03/06/2025 10:38 PM Signed [facility] Clinical [facility] Psychology Evaluation Time of Service: 8:05 am to 9:00 am CPT Code: psychodiagnostic evaluation Billing Code: Mahesh The patient was informed that this interview [...] Social History: Mr. Agustin was raised in [place]. He has one half brother who is [...] become harmful to you? No. Impressions Mr. Agustni is a 44 year old male who [...] psychotropic medication at the (more content not included)...NormalProMedica Bay Park HospitalOVon 29-73-3410PSWISiqkhm Visit (NREUS2) TAHIRA AGUSTIN ([id number]) 1980 M Date Time Provider Department 02/03/25 9:30 AM OLENA GOMEZ During your visit today, we recorded the following information about you: Pulse Blood pressure 71/minute 119/80 Willow Ramos MD 02/06/2025 12:29 PM Signed [facility] - NEW PATIENT EVALUATION [...] tardive dyskinesia and tremor. He is from [facility] and follows with a local psychiatry team. Chart Review: Per records he is currently on fluoxetine, lamotrigine, propranolol, and valbenazine. He saw his psychiatry LAPELER on 01/25/2025 where he asked for a [...] note at this visit he observed abnormal lscrqo-hu-ujld testing indicating ataxia for which MRI brain [...] Valbenazine Bneztropine Questionnaires Revi (more content not included)...NormalDoctors HospitalI HEAD/BRAIN WO/W CONTRon 35-40-6283BmiViola, [place] [address] Magnetic Resonance Report Signed Patient: TAHIRA AGUSTIN MR#: [id number] : 1980 Acct:[id number] Age/Sex: 43 / M ADM Date: 05/18/24 Loc: MRI Attending Dr: Nadia Swift D.O. Ordering Physician: Nadia Swift D.O. Date of Service: 05/18/24 Procedure(s): MR head/brain wo/w con Accession Number(s): [id number] cc: Georgia Davey LAPELER; Nadia Swift D.O. [place] [address] Patient Name: TAHIRA AGUSTIN MRN: [id number] date: 1980 Sex: M Assigned Patient Location: MRI Current Patient Location: MRI Accession/Order Number: [id number] Exam Date: 05/18/2024 08:00 Report Date: 05/18/2024 14:20 At the request of: NADIA SWIFT Procedure: MR head/brain wo/w con EXAM: MR head/brain wo/w con HISTORY: R27.0 COMPARISON: MRI brain 12/20/2020. TECHNIQUE: Multisequence MRI brain was performed with and without intravenous contrast. FINDINGS: There is no restricted diffusion to suggest acute infarct. There is no midline shift, mass effect, or abnormal extraaxial fluid collections. There are no abnormal parenchymal or leptomeningeal enhancement. The cortical sulci and ventricular system are within normal limits. The major intracranial flow voids are visualized. The cerebellar tonsils are normal in position. The orbits demonstrate no suspicious enhancement or any focal lesions. The paranasal sinuses show no air-fluid level. The mastoid air cells are clear. The calvarium and extracranial soft tissues are unremarkable. MR/MR head/brain wo/w con IMPRESSION: Unremarkable brain MRI performed without and with contrast. Electronically authenticated by: LUIZ MENDOZA Date: 05/18/2024 14:20 Dictated By: LUIZ MENDOZA M.D. Signed By: 05/18/241422 DD/ 19 TD/TT: Registered Nurse Nursery:[facility], Radiologist, MD - 05/18/2024 [place] [address] Magnetic Resonance Report Signed Patient: TAHIRA AGUSTIN MR#: [id number] : 1980 Acct:[id number] Age/Sex: 43 / M ADM Date: 05/18/24 Loc: MRI Attending Dr: Nadia Swift D.O. Ordering Physician: Nadia Swift D.O. Date of Service: 05/18/24 Procedure(s): MR head/brain wo/w con Accession Number(s): [id number] cc: Georgia Davey NP; Nadia Swift D.O. [address] [place] [address] Patient Name: TAHIRA AGUSTIN MRN: [id number] date: 1980 Sex: M Assigned Patient Location: MRI Current Patient Location: MRI Accession/Order Number: [id number] Exam Date: 05/18/2024 08:00 Report Date: 05/18/2024 14:20 At the request of: NADIA SWIFT Procedure: MR head/brain wo/w con EXAM: MR head/brain wo/w con HISTORY: R27.0 COMPARISON: MRI brain 12/20/2020. TECHNIQUE: Multisequence MRI brain was performed with and without intravenous contrast. FINDINGS: There is no restricted diffusion to suggest acute infarct. There is no midline shift, mass effect, or abnormal extraaxial fluid collections. There are no abnormal parenchymal or leptomeningeal enhancement. The cortical sulci and ventricular system are within normal limits. The major intracranial flow voids are visualized. The cerebellar tonsils are normal in position. The orbits demonstrate no suspicious enhancement or any focal lesions. The paranasal sinuses show no air-fluid level. The mastoid air cells are clear. The calvarium and extracranial soft tissues are unremarkable. MR/MR head/brain wo/w con IMPRESSION: Unremarkable brain MRI performed without and with contrast. Electronically authenticated by: LUIZ MENDOZA Date: 05/18/2024 14:20 Dictated By: LUIZ MENDOZA M.D. Signed By: 05/18/241422 DD/ 19 TD/TT: Registered Nurse Nursery: [facility] HealthcareRadiology Study observation (narrative)[facility]I HEAD/BRAIN WO/W CONTROrdered By: Radiologist Radiology on [id number] Work Phone: rt PULMONARY FUNCTION TESTon 88-51-0673QhqViola, [place] [address] Respiratory Report Signed Patient: TAHIRA AGUSTIN MR#: [id number] : 1980 Acct:[id number] Age/Sex: 42 / M ADM Date: 09/18/23 Loc: CARD Attending Dr: Georgia Davey NP Ordering Physician: Georgia Davey NP Date of Service: 09/18/23 Procedure(s): RT pulmonary function test Accession Number(s): [id number] cc: [facility] Test Date: 2023-09-18 Pat Name: TAHIRA AGUSTIN Department: Room: - 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 Findings were considered accurate and reproducible. Both pre- and post-bronchodilator values utilized for spirometry. Spirometry (based on [...] Alba Dictated By: Neftaly Alba D.O. 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 Findings were considered accurate and reproducible. Both pre- and post-bronchodilator values utilized for spirometry. Spirometry (based on [...] Alba Dictated By: Neftaly Alba D.O. Signed By: 09/23/23706 DD/ 6 TD/TT: Registered Nurse Nursery: [facility] Managed by Q PULMONARY FUNCTION TESTOrdered By: Radiologist Radiology on [id number] Work Phone: RT PULMONARY FUNCTION TESTon 65-25-4277Derwbswcr Study observation (narrative)[facility] Managed by QXR CHEST 2Von 43-44-2524ZxfViola, [place] [address] XRay Report Signed Patient: TAHIRA AGUSTIN MR#: [id number] : 1980 Acct:[id number] Age/Sex: 42 / M ADM Date: 09/18/23 Loc: CARD Attending Dr: Georgia Davey NP Ordering Physician: Georgia Davey NP Date of Service: 09/18/23 Procedure(s): XR chest 2V Accession Number(s): [id number] cc: Georgia Davey NP [place] [id number] Patient Name: TAHIRA AGUSTIN MRN: [id number] date: 1980 Sex: M Assigned Patient Location: CARD Current Patient Location: CARD Accession/Order Number: [id number] Exam Date: 09/18/2023 10:17 Report Date: 09/18/2023 10:48 At the request of: GEORGIA DAVEY Procedure: XR chest 2V EXAM: XR chest [...] 10:48 Dictated By: Selina Mcintosh M.D. Signed By: 09/18/23 1051 DD/ 1048 TD/TT: Registered Nurse Nursery:[facility]iology, Radiologist, - 09/18/2023 [place] [address] XRay Report Signed Patient: TAHIRA AGUSTIN MR#: [id number] : 1980 Acct:[id number] Age/Sex: 42 / M ADM Date: 09/18/23 Loc: CARD Attending Dr: Georgia Davey NP Ordering Physician: Georgia Davey NP Date of Service: 09/18/23 Procedure(s): XR chest 2V Accession Number(s): [id number] cc: Georgia Davey NP [place] [id number] Patient Name: TAHIRA AGUSTIN MRN: [id number] date: 1980 Sex: M Assigned Patient Location: CARD Current Patient Location: CARD Accession/Order Number: [id number] Exam Date: 09/18/2023 10:17 Report Date: 09/18/2023 10:48 At the request of: GEORGIA DAVEY Procedure: XR chest 2V EXAM: XR chest [...] SELINA MCINTOSH Date: 09/18/2023 10:48 Dictated By: Le,Selina M.D. Signed By: 09/18/23 1051 DD/ 1048 TD/TT: Registered Nurse Nursery: [facility] HealthcareRadiology Study observation (narrative)[facility] HealthcareXR CHEST 2V Ordered By: Radiologist Radiology on 68-38-4956OZWWSouthPointe Hospital Work Phone: cbc AUTO DIFFon 91-94-8944KFTJ #0.1 103/ulNormal 0.0-0.1The [facility] CenterComment on above:Performed By: #### CBC #### [facility] [address] [place] [address] [address] Lazara MottBasophils/100 WBC (Bld)1.4 %Normal0.2-2.0[facility] Comment on above:Performed By: #### CBC #### [facility] [address] [place] [address] Dr. Lazara Wilks #0.3 103/ulNormal0.0-0.7The [facility] CenterComment on above: Performed By: #### CBC #### [facility] [address] [place] [address] [address] Lazara Quanosinophils/100 WBC (Bld)3.1 %Normal0.9-7.0The [facility] Comment on above:Performed By: #### CBC #### [facility] [address] [place] [address] Dr. Lazara Quanrythrocyte distribution width (RBC) [Ratio]12.2 %Xebrfd16.0-15.0 [facility] CenterComment on above:Performed By: #### CBC #### [facility] [address] [place] [address] Dr. Lazara MottHematocrit (Bld) [Volume fraction]45.0 %Fuozuf40.0-54.0The [facility] CenterComment on above:Performed By: #### CBC #### [facility] [address] [place] [address] Dr. Lazara MottHemoglobin (Bld) [Mass/Vol]15.2 g/bZZstxqf29.0-18.0The [facility] CenterComment on above:Performed By: #### CBC #### [facility] [address] [place] [address] [address] Lazara Valdes #0.06 10e3/ulCritically high0.00-0.03The [facility] Comment on above:Performed By: #### CBC #### [facility] [address] [place] [address] Dr. Lazara Valdes %0.7 %Critically high0.0-0.5The [facility] CenterComment on above:Performed By: #### CBC #### [facility] [address] [place] [address] Dr. Lazara Live #2.5 103/ulNormal1.2-3.8The [facility] CenterComment on above:Performed By: #### CBC #### [facility] [address] [place] [address] Dr. Lazara Sheppardhocytes/100 WBC (Bld)31.5 %Eqqmgl21.5-60.0The [facility] CenterComment on above:Performed By: #### CBC #### [facility] [address] [place] [address] Dr. Lazara KingUAL DIFF REQNONormalThe [facility] CenterComment on above: Performed By: #### CBC #### [facility] [address] [place] [address] Dr. Lazara Pichardo (RBC) [Entitic mass]30.6 evYgplkk49.9-34.0The [facility] CenterComment on above:Performed By: #### CBC #### [facility] [address] [place] [address] Dr. Lazara Pichardo (RBC) [Mass/Vol]33.8 g/yPNkbahx79.9-35.2The [facility] CenterComment on above:Performed By: #### CBC #### [facility] [address] [place] [address] Dr. Lazara Pichardo (RBC) [Entitic vol]90.7 lXEamnte59.0-94.0The [facility] CenterComment on above:Performed By: #### CBC #### [facility] [address] [place] [address] [address] Lazara Colmenares #0.7 103/ulNormal0.3-0.8The [facility] CenterComment on above:Performed By: #### CBC #### [facility] [address] [place] [address] Dr. Lazara Christiansenocytes/100 WBC (Bld)8.7 %Normal1.7-12.0The [facility] Comment on above:Performed By: #### CBC #### [facility] [address] [place] [address] Dr. Lazara Keating #4.4 103/ulNormal1.4-6.5The [facility] CenterComment on above:Performed By: #### CBC #### [facility] [address] [place] [address] Dr. Lazara Ferrerutrophils/100 WBC (Bld)54.6 %Fyrjya57.0-75.0The [facility] CenterComment on above:Performed By: #### CBC #### [facility] [address] [place] [address] Dr. Lazara Lai mean volume (Bld) [Entitic vol]9.9 fLNormal9.5-13.5The [facility] CenterComment on above:Performed By: #### CBC #### [facility] [address] [place] [address] Dr. Lazara MottPLT297 103/qaWjekop272-061Pek [facility] CenterComment on above: Performed By: #### CBC #### [facility] [address] [place] [address] Dr. Lazara MottRBC4.96 106/ulNormal4.70-6.10The [facility] CenterComment on above:Performed By: #### CBC #### [facility] [address] [place] [address] Dr. Lazara MottWBC8.0 103/ulNormal4.0-11.0The [facility] CenterComment on above: Performed By: #### CBC #### [facility] [address] [place] [address] [address] Lazara VerasID PROFILEon 84-19-8486TDMG-HDL RATIO NORMSBlanchard Valley Health SystemComment on above:Result Comment: 3.3 - 4.4 LOW RISK 4.4 - 7.1 AVERAGE RISK 7.1 - 11.0 MODERATE RISK >11.0 HIGH RISKPerformed By: #### TSH, LIPID, CMP #### [facility] [address] [place] [address] [address] Lazara MottCholesterol [Mass/Vol]145 mg/dLNormal<=200[facility] Comment on above:Performed By: #### TSH, LIPID, CMP #### [facility] [address] [address] [address] Lazara MottCholesterol in HDL [Mass/Vol]43 mg/sTVgwftp75-66VnmMercy Health Defiance HospitalComment on above:Performed By: #### TSH, LIPID, CMP #### [facility] [address] [address] [address] Lazara MottCholesterol in LDL [Mass/Vol]62.0 mg/dLKettering Health Washington TownshipComment on above:Performed By: #### TSH, LIPID, CMP #### [facility] [address] [place] [address] [address] Lazara Andersonesterambrosio.total/Cholesterol in HDL [Mass ratio]3.4 {ratio} NormalMercy Health Defiance HospitalComment on above:Performed By: #### TSH, LIPID, CMP #### [facility] [address] [address] [address] Lazara MottHDL NORMAL> or = 60 mg/dl - LOW CARDIOVASCULAR RISK <40 mg/dl - HIGH CARDIOVASCULAR RISKKettering Health Washington TownshipComment on above:Performed By: #### TSH, LIPID, CMP #### [facility] [address] [address] [address] Lazara MottLDL CALC NORMALSEE Memorial Health SystemComment on above:Result Comment: <100 mg/dl OPTIMAL 100 - 129 mg/dl NEAR OR ABOVE OPTIMAL 130 - 159 mg/dl BORDERLINE HIGH 160 - 189 mg/dl HIGH >190 mg/dl VERY HIGH Performed By: #### TSH, LIPID, CMP #### [facility] [address] [address] [address] Lazara MottTriglyceride [Mass/Vol]200 mg/dLCritically high<=150The [facility]terson Medical Centerment on above:Performed By: #### TSH, LIPID, CMP #### [facility] [address] [address] [address] Lazara MottVLDL CALC40.0 mg/dLNormalThe [facility] CenterComment on above: Performed By: #### TSH, LIPID, CMP #### [facility] [address] [place] [address] Dr. Lazara Sylvester 14(COMP METB)on 29-15-2574Csrxjzq [Mass/Vol]4.0 g/dLNormal 3.4-5.0The [facility] CenterComment on above:Performed By: #### TSH, LIPID, CMP #### [facility] [address] [place] [address] Dr. Lazara MottAlbumin/Globulin [Mass ratio]1.2 {ratio}NormalThe [facility]-Patterson Medical Centerment on above:Performed By: #### TSH, LIPID, CMP #### [facility] [address] [place] [address] Dr. Lazara Irving [Catalytic activity/Vol]80 U/WCkfqod14-123Hcq [facility] on above:Performed By: #### TSH, LIPID, CMP #### [facility] [address] [address] [address] Lazara Savage [Catalytic activity/Vol]67 U/LCritically huvy83-13Quk [facility] on above:Performed By: #### TSH, LIPID, CMP #### [facility] [address] [address] [address] Lazara Acosta gap [Moles/Vol]13.9 mmol/LNormalThe [facility] Comment on above:Performed By: #### TSH, LIPID, CMP #### [facility] [address] [address] [address] Lazraa MottAST [Catalytic activity/Vol]26 U/NQzhluq69-01Sjz [facility] CenterComment on above:Performed By: #### TSH, LIPID, CMP #### [facility] [address] [address] [address] Lazara MottBilirubin [Mass/Vol]0.6 mg/dLNormal0.2-1.0[facility] Comment on above:Performed By: #### TSH, LIPID, CMP #### [facility] [address] [address] [address] Lazara MottCalcium [Mass/Vol]8.9 mg/dLNormal8.5-10.1The [facility] Comment on above:Performed By: #### TSH, LIPID, CMP #### [facility] [address] [place] [address] Dr. Lazara MottChloride [Moles/Vol]102 mmol/CUhepla63-408Gxe [facility] Comment on above:Performed By: #### TSH, LIPID, CMP #### [facility] [address] [address] [address] Lazara MottCO2 [Moles/Vol]24.9 mmol/AFlxnqt47.0-32.0The [facility] Comment on above:Performed By: #### TSH, LIPID, CMP #### [facility] [address] [address] [address] Lazara MottCreatinine [Mass/Vol]1.13 mg/dLNormal0.70-1.30The [facility] CenterComment on above:Performed By: #### TSH, LIPID, CMP #### [facility] [address] [place] [address] Dr. Lazara QuanGFR-AF GEORGIAN>60Normal>=60The [facility] CenterComment on above:Performed By: #### TSH, LIPID, CMP #### [facility] [address] [address] [address] Lazara QuanGFR-NON AF GEORGIAN>60Normal>=60The [facility] CenterComment on above:Performed By: #### TSH, LIPID, CMP #### [facility] [address] [address] [address] Lazara MottGlobulin (S) [Mass/Vol]3.3 g/dLNormOhioHealth Grove City Methodist HospitalComment on above:Performed By: #### TSH, LIPID, CMP #### [facility] [address] [address] [address] Lazara MottGlucose [Mass/Vol]87 mg/tNEgipay12-754VtsMercy Health [facility] Hospital Comment on above:Performed By: #### TSH, LIPID, CMP #### [facility] [address] [place] [address] Dr. Lazara MottPotassium [Moles/Vol]3.8 mmol/LNormal3.5-5.1[facility] Comment on above:Performed By: #### TSH, LIPID, CMP #### [facility] [address] [place] [address] Dr. Lazara MottProtein [Mass/Vol]7.3 g/dLNormal6.4-8.2[facility] Comment on above:Performed By: #### TSH, LIPID, CMP #### [facility] [address] [place] [address] Dr. Lazara MottSodium [Moles/Vol]137 mmol/CCbokzu725-346XrzMercy Health Defiance Hospital Comment on above:Performed By: #### TSH, LIPID, CMP #### [facility] [address] [place] [address] Dr. Lazara MottUrea nitrogen [Mass/Vol]9.0 mg/dLNormal7.0-18.0[facility] HospitalComment on above:Performed By: #### TSH, LIPID, CMP #### [facility] [address] [place] [address] Dr. Lazara MottUrea nitrogen/Creatinine [Mass ratio]8.0 mg/mgNormOhioHealth Grove City Methodist HospitalComment on above:Performed By: #### TSH, LIPID, CMP #### [facility] [address] [place] [address] Dr. Lazara Kruse 65-32-2974PBT3.148 uIU/mLNormal0.358-3.740The [facility] CenterComment on above:Performed By: #### TSH, LIPID, CMP #### [facility] [address] [address] [address] Lazara [place] RANDOM W/MICROSCOPICon 81-85-4132VAMVZLFZU CRYSTALSMODERATE NormalThe [facility] CenterComment on above:Performed By: #### UAMIC #### [facility] [address] [address] [address] Lazara MottBACTERIANONE SEENNormalNONE SEENThe [facility] CenterComment on above:Performed By: #### UAMIC #### [facility] [address] [address] [address] Lazara Rivera Ql (U)NegativeNormalNEGATIVEThe [facility] Comment on above:Performed By: #### UAMIC #### [facility] [address] [address] [address] Lazara MottCASTNONE SEENNormalNONE SEENMercy Health Defiance HospitalComment on above:Performed By: #### UAMIC #### [facility] [address] [address] [address] Lazara Andraed (U)SL CLOUDYAbnormalCLEARThe [facility] CenterComment on above:Performed By: #### UAMIC #### [facility] [address] [address] [address] Lazara Weston (U)LT. YELLOWNormalYELLOWMercy Health Defiance HospitalComment on above:Performed By: #### UAMIC #### [facility] [address] [address] [address] Lazara Young LM Nom (Urine sed)SEENAbnormalNONE SEENThe [facility] CenterComment on above:Performed By: #### UAMIC #### [facility] [address] [address] [address] Haile ChangEpithelial cells LM Ql (Urine sed)NONE SEENNormalNONE SEEN /RARE The [facility] CenterComment on above:Performed By: #### UAMIC #### [facility] [address] [address] [address] Lazara MottGlucose Ql (U)NegativeNormalNEGATIVEMercy Health Defiance HospitalComment on above:Performed By: #### UAMIC #### [facility] [address] [address] [address] Lazara MottHemoglobin Ql (U)NegativeNormalNEGATIVEOhiohealth Mansfield Hospital on above:Performed By: #### UAMIC #### [facility] [address] [address] [address] Lazara MottKetones Ql (U)NegativeNormalNEGATIVEMercy Health Defiance HospitalComment on above:Performed By: #### UAMIC #### [facility] [address] [place] [address] Dr. Lazara MottLEUKOCYTESNegativeNormalNEGATIVEMercy Health Defiance HospitalComment on above:Performed By: #### UAMIC #### [facility] [address] [address] [address] Lazara MottMUCOUSNONE SEENNormalNONE SEENMercy Health Defiance HospitalComment on above:Performed By: #### UAMIC #### [facility] [address] [place] [address] Dr. Lazara MottNitrite Ql (U)NegativeNormalNEGATIVEMercy Health Defiance HospitalComment on above:Performed By: #### UAMIC #### [facility] [address] [address] [address] Lazara MottpH (U)8.5 [pH]Normal5-9The [facility] CenterComment on above: Performed By: #### UAMIC #### [facility] [address] [place] [address] Dr. Lazara MottFjvarMTL3-8Ohgbrg9-7Aja [facility] CenterComment on above:Performed By: #### UAMIC #### [facility] [address] [address] [address] Lazara MottSPEC GRAVITY1.324Bnqiuk0.005-<=1.025The [facility] CenterComment on above:Performed By: #### UAMIC #### [facility] [address] [place] [address] Dr. Lazara [place] PROTEINNegativeNormalNEGATIVE/ TRACEThe [facility] Comment on above:Performed By: #### UAMIC #### [facility] [address] [place] [address] Dr. Lazara Mcknightbilantonina Qn (U)0.2 {Anum'U}/dLNormal0.2 - 1.0The [facility] CenterComment on above:Performed By: #### UAMIC #### [facility] [address] [place] [address] Dr. Lazara StricklandBC0-2AbnormalNONE SEENMercy Health Defiance HospitalComment on above: Performed By: #### UAMIC #### [facility] [address] [place] [address] Dr. Lazara Alex AUTO DIFFon [id number] #0.1 103/ulNormal0.0-0.1[facility] Defiance HospitalComment on above:Performed By: #### CMP, TSH, LIPID, FT3 #### [facility] [address] [place] [address] Dr. Lazara MottBasophils/100 WBC (Bld)1.1 %Normal0.2-2.0[facility] Comment on above:Performed By: #### CMP, TSH, LIPID, FT3 #### [facility] [address] [place] [address] Dr. Lazara Wilks #0.2 103/ulNormal0.0-0.7The [facility] CenterComment on above: Performed By: #### CMP, TSH, LIPID, FT3 #### [facility] [address] [place] [address] Dr. Lazara Quanosinophils/100 WBC (Bld)2.3 %Normal0.9-7.0[facility] Comment on above:Performed By: #### CMP, TSH, LIPID, FT3 #### [facility] [address] [place] [address] Dr. Lazara Quanrythrocyte distribution width (RBC) [Ratio]12.1 %Iokqjx05.0-15.0 The [facility] CenterComment on above:Performed By: #### CMP, TSH, LIPID, FT3 #### [facility] [address] [place] [address] Dr. Lazara MottHematocrit (Bld) [Volume fraction]42.4 %Tohowr35.0-54.0The [facility] CenterComment on above:Performed By: #### CMP, TSH, LIPID, FT3 #### [facility] [address] [place] [address] Dr. Lazara MottHemoglobin (Bld) [Mass/Vol]14.5 g/nVKisbkg77.0-18.0The [facility] CenterComment on above:Performed By: #### CMP, TSH, LIPID, FT3 #### [facility] [address] [place] [address] Dr. Lazara Valdes #0.04 10e3/ulCritically high0.00-0.03The [facility] Comment on above:Performed By: #### CMP, TSH, LIPID, FT3 #### [facility] [address] [place] [address] Dr. Lazara Valdes %0.5 %Normal0.0-0.5The [facility] CenterComment on above: Performed By: #### CMP, TSH, LIPID, FT3 #### [facility] [address] [place] [address] Dr. Lazara Live #2.5 103/ulNormal1.2-3.8The [facility] CenterComment on above:Performed By: #### CMP, TSH, LIPID, FT3 #### [facility] [address] [place] [address] Dr. Lazara Mayermphocytes/100 WBC (Bld)31.3 %Iuwgsn41.5-60.0The [facility] CenterComment on above:Performed By: #### CMP, TSH, LIPID, FT3 #### [facility] [address] [place] [address] Dr. Lazara KingUAL DIFF REQNONormalThe [facility] CenterComment on above: Performed By: #### CMP, TSH, LIPID, FT3 #### [facility] [address] [place] [address] Dr. Lazara Pichardo (RBC) [Entitic mass]30.7 sdZqscus79.9-34.0The [facility] HospitalComment on above:Performed By: #### CMP, TSH, LIPID, FT3 #### [facility] [address] [place] [address] Dr. Lazara Pichardo (RBC) [Mass/Vol]34.2 g/rSCwprll09.9-35.2The [facility] CenterComment on above:Performed By: #### CMP, TSH, LIPID, FT3 #### [facility] [address] [place] [address] Dr. Lazara Pichardo (RBC) [Entitic vol]89.6 jQUtuwzc57.0-94.0The [facility] CenterComment on above:Performed By: #### CMP, TSH, LIPID, FT3 #### [facility] [address] [place] [address] Dr. Lazara Colmenares #0.8 103/ulNormal0.3-0.8The [facility] CenterComment on above:Performed By: #### CMP, TSH, LIPID, FT3 #### [facility] [address] [place] [address] Dr. Lazara Christiansenocytes/100 WBC (Bld)10.2 %Normal1.7-12.0The [facility] Comment on above:Performed By: #### CMP, TSH, LIPID, FT3 #### [facility] [address] [place] [address] Dr. Lazara Keating #4.3 103/ulNormal1.4-6.5The [facility] CenterComment on above:Performed By: #### CMP, TSH, LIPID, FT3 #### [facility] [address] [address] [address] Lazara Ferrerutrophils/100 WBC (Bld)54.6 %Mqphjz30.0-75.0The [facility] Centerment on above:Performed By: #### CMP, TSH, LIPID, FT3 #### [facility] [address] [place] [address] Dr. Lazara Lai mean volume (Bld) [Entitic vol]9.3 fLCritically low 9.5-13.5The [facility] Centerment on above:Performed By: #### CMP, TSH, LIPID, FT3 #### [facility] [address] [place] [address] Dr. Lazara MottPLT294 103/tkPaiatq165-081Vkp [facility] on above: Performed By: #### CMP, TSH, LIPID, FT3 #### [facility] [address] [place] [address] Dr. Lazara MottRBC4.73 106/ulNormal4.70-6.10The [facility] on above:Performed By: #### CMP, TSH, LIPID, FT3 #### [facility] [address] [place] [address] Dr. Lazara MottWBC7.9 103/ulNormal4.0-11.0The [facility] on above: Performed By: #### CMP, TSH, LIPID, FT3 #### [facility] [address] [place] [address] Dr. Lazara Cervatnes T3on [id number] T33.42 pg/mlLNormal2.77-5.27The [facility] on above:Performed By: #### CMP, TSH, LIPID, FT3 #### [facility] [address] [place] [address] Dr. Lazara Cervantes T4on [id number] T4 [Mass/Vol]0.95 ng/dLNormal0.78-2.19 The [facility] Centerment on above:Performed By: #### CMP, TSH, LIPID, FT3 #### [facility] [address] [address] [address] Lazara MottLIPID PROFILEon [id number]-HDL RATIO NORMSBlanchard Valley Health SystemComment on above:Result Comment: 3.3 - 4.4 LOW RISK 4.4 - 7.1 AVERAGE RISK 7.1 - 11.0 MODERATE RISK >11.0 HIGH RISKPerformed By: #### CMP, TSH, LIPID, FT3 #### [facility] [address] [address] [address] Lazara MottCholesterol [Mass/Vol]159 mg/dLNormal<=200[facility] Comment on above:Performed By: #### CMP, TSH, LIPID, FT3 #### [facility] [address] [place] [address] Dr. Lazara MottCholesterol in HDL [Mass/Vol]41 mg/dLKettering Health [facility] Township Comment on above:Performed By: #### CMP, TSH, LIPID, FT3 #### [facility] [address] [place] [address] Dr. Lazara MottCholesterol in LDL [Mass/Vol]94.0 mg/dLKettering Health Washington TownshipComment on above:Performed By: #### CMP, TSH, LIPID, FT3 #### [facility] [address] [place] [address] Dr. Lazara Andersonesterambrosio.total/Cholesterol in HDL [Mass ratio]3.9 {ratio} NormalMercy Health Defiance HospitalComment on above:Performed By: #### CMP, TSH, LIPID, FT3 #### [facility] [address] [place] [address] Dr. Lazara MottHDMary NORMAL> or = 60 mg/dl - LOW CARDIOVASCULAR RISK <40 mg/dl - HIGH CARDIOVASCULAR RISKKettering Health Washington TownshipCommary [facility] bed rehabilitation [facility] on above:Performed By: #### CMP, TSH, LIPID, FT3 #### [facility] [address] [place] [address] Dr. Lazara MottLDL CALC NORMALSEE Memorial Health SystemComment on above:Result Comment: <100 mg/dl OPTIMAL 100 - 129 mg/dl NEAR OR ABOVE OPTIMAL 130 - 159 mg/dl BORDERLINE HIGH 160 - 189 mg/dl HIGH >190 mg/dl VERY HIGH Performed By: #### CMP, TSH, LIPID, FT3 #### [facility] [address] [place] [address] Dr. Lazara MottTriglyceride [Mass/Vol]120 mg/dLNormal<=150The [facility] Comment on above:Performed By: #### CMP, TSH, LIPID, FT3 #### [facility] [address] [place] [address] Dr. Lazara MottVLDL CALC24.0 mg/dLNormalThe [facility] CenterComment on above: Performed By: #### CMP, TSH, LIPID, FT3 #### [facility] [address] [place] [address] Dr. Lazara Sylvester 14(COMP METB)on [id number] [Mass/Vol]4.1 g/dLNormal 3.5-5.0The [facility] CenterComment on above:Performed By: #### CMP, TSH, LIPID, FT3 #### [facility] [address] [place] [address] Dr. Lazara MottAlbumin/Globulin [Mass ratio]1.2 {ratio}NormalThe [facility] on above:Performed By: #### CMP, TSH, LIPID, FT3 #### [facility] [address] [place] [address] Dr. Lazara Irving [Catalytic activity/Vol]79 U/LIlemfm45-274Fts [facility] CenterComment on above:Performed By: #### CMP, TSH, LIPID, FT3 #### [facility] [address] [place] [address] Dr. Lazara Savage [Catalytic activity/Vol]76 U/LCritically etfh85-94Mfs [facility] on above:Performed By: #### CMP, TSH, LIPID, FT3 #### [facility] [address] [place] [address] Dr. Lazara Acosta gap [Moles/Vol]10.6 mmol/LNormalMercy Health Defiance Hospital Comment on above:Performed By: #### CMP, TSH, LIPID, FT3 #### [facility] [address] [address] [address] Lazara MottAST [Catalytic activity/Vol]21 U/NPobhbx49-08Mtk [facility] CenterComment on above:Performed By: #### CMP, TSH, LIPID, FT3 #### [facility] [address] [place] [address] Dr. Lazara MottBilirubin [Mass/Vol]0.4 mg/dLNormal0.2-1.3The [facility] Comment on above:Performed By: #### CMP, TSH, LIPID, FT3 #### [facility] [address] [place] [address] Dr. Lazara MottCalcium [Mass/Vol]9.0 mg/dLNormal8.4-10.2[facility] Comment on above:Performed By: #### CMP, TSH, LIPID, FT3 #### [facility] [address] [place] [address] Dr. Lazara MottChloride [Moles/Vol]104 mmol/WAgbzkr68-677SjcMercy Health Defiance Hospital Comment on above:Performed By: #### CMP, TSH, LIPID, FT3 #### [facility] [address] [place] [address] Dr. Lazara MottCO2 [Moles/Vol]27.1 mmol/WNhtqex59.0-30.0The [facility] Comment on above:Performed By: #### CMP, TSH, LIPID, FT3 #### [facility] [address] [place] [address] Dr. Lazara MottCreatinine [Mass/Vol]1.13 mg/dLNormal0.66-1.25The [facility] CenterComment on above:Performed By: #### CMP, TSH, LIPID, FT3 #### [facility] [address] [place] [address] Dr. Haile ChangEGFR-AF GEORGIAN>60Normal>=60The [facility] CenterComment on above:Performed By: #### CMP, TSH, LIPID, FT3 #### [facility] [address] [place] [address] Dr. Lazara QuanGFR-NON AF GEORGIAN>60Normal>=60The [facility] CenterComment on above:Performed By: #### CMP, TSH, LIPID, FT3 #### [facility] [address] [place] [address] Dr. Lazara MottGlobulin (S) [Mass/Vol]3.3 g/dLNormalThe [facility] CenterComment on above:Performed By: #### CMP, TSH, LIPID, FT3 #### [facility] [address] [place] [address] Dr. Lazara MottGlucose [Mass/Vol]95 mg/tYRutmde41-558PkvMercy Health Defiance Hospital Comment on above:Performed By: #### CMP, TSH, LIPID, FT3 #### [facility] [address] [place] [address] Dr. Lazara MottPotassium [Moles/Vol]3.7 mmol/LNormal3.4-5.0The [facility] Comment on above:Performed By: #### CMP, TSH, LIPID, FT3 #### [facility] [address] [place] [address] Dr. Lazara MottProtein [Mass/Vol]7.4 g/dLNormal6.1-8.2[facility] Comment on above:Performed By: #### CMP, TSH, LIPID, FT3 #### [facility] [address] [place] [address] Dr. Lazara MottSodium [Moles/Vol]138 mmol/QZpmplm562-683EifMercy Health Defiance Hospital Comment on above:Performed By: #### CMP, TSH, LIPID, FT3 #### [facility] [address] [place] [address] Dr. Lazara MottUrea nitrogen [Mass/Vol]13.0 mg/dLNormal9.0-20.0The [facility] CenterComment on above:Performed By: #### CMP, TSH, LIPID, FT3 #### [facility] [address] [address] [address] Lazara MottUrea nitrogen/Creatinine [Mass ratio]11.5 mg/mgKettering Health Washington TownshipComment on above:Performed By: #### CMP, TSH, LIPID, FT3 #### [facility] [address] [place] [address] Dr. Lazara GranadosHon 41-30-6961UHY2.329 uIU/mLNormal0.470-4.680The [facility] CenterComment on above:Performed By: #### CMP, TSH, LIPID, FT3 #### [facility] [address] [place] [address] Dr. Lazara GranadosSELECT SPECIALTY HOSPITAL BELOWKettering Health Washington TownshipComment on above: Result Comment: <0.34 UIU/ml HYPERTHYROID 0.34-5.60 UIU/ml EUTHYROID >5.60 UIU/ml HYPOTHYROIDPerformed By: #### CMP, TSH, LIPID, FT3 #### [facility] [address] [place] [address] Dr. Lazara MottXR CHEST 2 Von [id number] CHEST 2 VEXAMINATION: XR CHEST 2 V HISTORY: Dyspnea COMPARISON: No relevant [...] Electronically authenticated by: LISSETH SANTOS Date: 2021-08-20 10:06[facility] Vital Signs Date TimeVital SignValuePerforming RfdnzoidsUnczvgeh73-76-8914 07:52-0400Body mass index (BMI) [Ratio]25.5 kg/o0Brkschnj Marcos [facility]- Work Phone: [facility] HospitalIrptefucjf26-99-4311 07:52-0400Body hmykac13.28 kgKwame Rodríguez [facility] Work Phone: [facility] HospitalIcxvzlqtsy27-09-9317 07:52-0400Diastolic blood vwrdefxy29 mm[Hg]Kwame Rodríguez PMHNP-BC Work Phone: 1(165)[facility] [place], [place] [address]Xxjjmmhqxt30-46-1757 07:52-0400Heart rate71 /min Kwame Rodríguez PMHNP-BC Work Phone: 1(949)[address] [place], [place] 7407808-06-2025 07:52-0400Systolic blood vnpduiex188 mm[Hg]Kwame Rodríguez PMHNP-BC Work Phone: 1(746)[address] [place], [place] 7407807-18-2025 09:28-0400Diastolic blood elyzvdud23 mm[Hg]Olena Gomez MD Work Phone: [facility]07-18-2025 09:28-0400Heart rate71 /min Olena Gomez MD Work Phone: [facility]07-18-2025 09:28-7286SlJ7% (BldA) [Mass fraction]99 %Olena Gomez MD Work Phone: [facility]07-18-2025 09:28-0400Systolic blood isuskwys740 mm[Hg]Olena Gomez MD Work Phone: [facility]07-09-2025 07:56-0400Body mass index (BMI) [Ratio]26.04 kg/s5PiulxtgnKwame Rodríguez PMHNP-BC Work Phone: 1(694)640-[facility] HospitalSxfdmfyxmy74-76-5837 07:56-0400Body cyjjwq01.09 kgKwame Rodríguez PMHNP-BC Work Phone: 1(239)[address]07-09-2025 07:56-0400Diastolic blood aoeaihgo46 mm[Hg]Kwame Rodríguez PMHNP-BC Work Phone: 1(810)646-[address] [place], [place] [address]Skyjvmxvmb46-62-8877 07:56-0400Heart rate67 /min Kwame Rodríguez PMHNP-BC Work Phone: 1(135)[facility] [place], [place] [address]Icxblprbam48-66-2559 07:56-0400Systolic blood zurcsptf536 mm[Hg]Kwame Rodríguez PMHNP-BC Work Phone: [facility] HospitalLokxtoemlf70-67-9290 08:32-0400Body mass index (BMI) [Ratio]26.04 kg/m2Georgia Davey LAPELER Work Phone: noSt. Louis Children's HospitalIxovmkxtpe65-52-2526 08:32-0400Body temperature 97.81 [degF]Georgia Davey LAP[employer] Work Phone: [facility] HospitalAraftxfgso13-90-3390 08:32-0400Body .09 kgGeorgia Davey LAPELER Work Phone: [facility] HospitalJisgsoxigh59-75-4934 08:32-0400Diastolic blood ebjhgpmu08 mm[Hg]Georgia Davey [employer]EL[employer] Work Phone: [facility] HospitalYqbtlvivdp58-01-5441 08:32-0400Heart rate71 /min Georgia Davey [employer] Work Phone: [facility] HospitalVxdwahziti38-01-3989 08:32-0400Respiratory rate18 /minLisa Davey LAPELER Work Phone: [facility] HospitalFnkuqitgey72-41-1284 08:32-1295DjC4% (BldA) [Mass fraction]97 %Georgia Davey [employer] Work Phone: [facility] HospitalMeqhtifsdk58-48-9033 08:32-0400Systolic blood qebgthby564 mm[Hg]Georgia Davey [employer] Work Phone: [facility] HospitalBxedyhzody00-58-1326 07:49-0400Body mass index (BMI) [Ratio]26.99 kg/x7KzdumphkKwame Rodríguez PMHNP-BC Work Phone: [facility] HospitalKmkgveyboo63-51-3738 07:49-0400Body gbuwwq78.27 kgKwame Rodríguez PMHNP-BC Work Phone: noSt. Louis Children's HospitalTyweteoxyh07-13-5964 07:49-0400Diastolic blood mm[Hg]Kwame Rodríguez PMHNP-BC Work Phone: 1(870)[address] [place], [place] 7407805-14-2025 07:49-0400Heart rate86 /min Kwame Rodríguez PMHNP-BC Work Phone: 1(319)[address] [place], [place] 7407805-14-2025 07:49-0400Systolic blood tkpakpup124 mm[Hg]Kwame Rodríguez PMHNP-BC Work Phone: 1(113)[address] [place], [place] 7407804-23-2025 07:55-0400Body mass index (BMI) [Ratio]26.99 kg/q7NascqdeyKwame Rodríguez PMHNP-BC Work Phone: 1(246)[address] [place], [place] 7407804-23-2025 07:55-0400Body argimj86.27 kgKwame Rodríguez PMHNP-BC Work Phone: 1(354)[address] [place], [place] 7407804-23-2025 07:55-0400Diastolic blood pksyoenm54 mm[Hg]Kwame Rodríguez PMHNP-BC Work Phone: 1(393)[address] [place], [place] 7407804-23-2025 07:55-0400Heart rate67 /min Kwame Rodríguez PMHNP-BC Work Phone: 1(261)[address] [place], [place] 7407804-23-2025 07:55-0400Systolic blood bjiddjrp916 mm[Hg]Kwame Rodríguez PMHNP-BC Work Phone: 1(797)[address] [place], [place] 7407804-02-2025 07:49-0400Body mass index (BMI) [Ratio]27.53 kg/q7MaajvmigKwame Rodríguez PMHNP-BC Work Phone: 1(270)[address] [place], [place] 7407804-02-2025 07:49-0400Body ppikbs81.08 kgKwame Rodríguez PMHNP-BC Work Phone: 1(199)[address] [place] [address]-02-2025 07:49-0400Diastolic blood wxcecbim02 mm[Hg]Kwame Rodríguez PMHNP-BC Work Phone: 1(786)[address] [place], [place] 7407804-02-2025 07:49-0400Heart rate68 /min Kwame Rodríguez PMHNP-BC Work Phone: 1(777)[address] [place], [place] 7407804-02-2025 07:49-0400Systolic blood ukoagewz952 mm[Hg]Kwame Rodríguez PMHNP-BC Work Phone: 1(938)[address] [place], [place] 7407802-26-2025 10:30-0500Body mass index (BMI) [Ratio]28.48 kg/z1OmwlugcwKwame Rodríguez PMHNP-BC Work Phone: 1(001)[address] [place], [place] 7407802-26-2025 10:30-0500Body qfihem51.25 kgKwame Rodríguez PMHNP-BC Work Phone: 1(342)[address] [place], [place] 7407802-26-2025 10:30-0500Diastolic blood idljijpx42 mm[Hg]Kwame Rodríguez PMHNP-BC Work Phone: 1(402)[address] [place], [place] 7407802-26-2025 10:30-0500Heart rate67 /min Kwame Rodríguez PMHNP-BC Work Phone: 1(822)[address] [place], [place] 7407802-26-2025 10:30-0500Systolic blood ysixxlck893 mm[Hg]Kwame Rodríguez PMHNP-BC Work Phone: 1(152)[address] [place], [place] 7407801-22-2025 09:18-0500Body mass index (BMI) [Ratio]28.48 kg/c5ZdvexphvKwame Rodríguez LAPELER Work Phone: 1(399)[address] [place], [place] 7407801-22-2025 09:18-0500Body mudrcf81.25 kgKwame Rodríguez LAP[employer] Work Phone: 1(084)[address] [place], [place] 7407801-22-2025 09:18-0500Diastolic blood ataqneeh03 mm[Hg]Kwame Keyeston LAP[employer]ER Work Phone: 1(113)[address] [place], [place] 7407801-22-2025 09:18-0500Heart rate74 /min Kwame Keyeston [employer] Work Phone: 1(273)[address] [place], [place] 7407801-22-2025 09:18-0500Systolic blood fvkcfekm595 mm[Hg]Kwame Keyeston LAPELER Work Phone: 1(046)[address] [place], [place] 7407812-31-2024 08:52-0500Body mass index (BMI) [Ratio]28.48 kg/n6AqygbfgaKwame Rodríguez LAPELER Work Phone: [facility] HospitalBiwmvorsyk25-72-5750 08:52-0500Body rsaigw53.25 kgKwame Rodríguez LAP[employer]ER Work Phone: 1(775)[facility]-[address] [place], [place] [address]Vuybrafmvl04-05-1153 08:52-0500Diastolic blood hzunkpic84 mm[Hg]Kwame Rodríguez [employer] Work Phone: 1(057)[facility] [place], [place] [address]Jbprtrxgcu09-19-8967 08:52-0500Heart rate68 /min Kwame Rodríguez [employer] Work Phone: 1(450)[facility] [place], [place] [address]Snuzgxmhtn52-87-8536 08:52-0500Systolic blood mm[Hg]Kawme Rodríguez [employer] Work Phone: 1(493)694-[address] [place], [place] [address]Jrfojlviui91-17-5915 08:48-0500Body rwysuf287.9 cmJn Mcclulough DO Work Phone: 1(630)[address] [place], [place] 0357612-11-2024 08:48-0500Body mass index (BMI) [Ratio]28.54 kg/m2Jn Mccullough DO Work Phone: 1(849)[facility] [place], [place] [address]Zadsvrvqio94-07-1955 08:48-0500Body udhjtw42.44 kgJn Mccullough DO Work Phone: 1(030)[facility] [place], [place] [address]Lgxhrtviux14-49-5828 08:48-0500Diastolic blood uyzrieyc37 mm[Hg]Jn Mccullough DO Work Phone: 1(801)[facility] [place], [place] [address]Bftpmvjnxm85-01-1624 08:48-0500Heart rate78 /min Jn Mccullough DO Work Phone: 1(709)[facility] [place], [place] [address]Jnlmimaovn89-39-3199 08:48-0500Respiratory rate12 /minJn Mccullough DO Work Phone: 1(616)[facility] [place], [place] [address]Kpnqakqhwv13-67-9799 08:48-9801NuS7% (BldA) [Mass fraction]99 %Jn Mccullough DO Work Phone: 1(873)[facility] [place], [place] [address]Veikftglnv17-70-7040 08:48-0500Systolic blood jdlmperr764 mm[Hg]Jn Mccullough DO Work Phone: noSt. Louis Children's HospitalKfwzqwwfke79-46-3867 08:14-0500Body mass index (BMI) [Ratio]28.48 kg/s0XiipdgntKwame Rodríguez LAPELER Work Phone: noSt. Louis Children's HospitalIfgfcoxjsy63-37-1530 08:14-0500Body dagckf37.25 kgKwame Rodríguez LAPELER Work Phone: noSt. Louis Children's HospitalTlasvcugoj08-94-1475 08:14-0500Diastolic blood nxooieja89 mm[Hg]Kwame Rodríguez LAP[employer] Work Phone: [facility] HospitalWfawmsgpvg70-65-8840 08:14-0500Heart rate73 /min Kwame Rodríguez [employer] Work Phone: noSt. Louis Children's HospitalAmqxgcbvzs36-17-8064 08:14-0500Systolic blood cpojmtms386 mm[Hg]Kwame Rodríguez LAP[employer] Work Phone: [facility] HospitalNttcafqrwe01-66-5070 08:44-0500Body xbvtra641.9 Tarijae Tamica LAP[employer]ER Work Phone: [address] [address]Xblxcecsfj45-27-6455 08:44-0500Body mass index (BMI) [Ratio]28.21 kg/m2Sherrill Tamica LAPELER Work Phone: [facility] HospitalHniezgjddo63-09-5678 08:44-0500Body temperature 97.81 [degF]Georgia Tamica LAPELER Work Phone: [facility] HospitalIcfmozpfbk78-92-1220 08:44-0500Body tugauu82.35 kgLisa Tamica LAPELER Work Phone: [address] [address]Cigptodhju36-96-9330 08:44-0500Diastolic blood fdwungcs60 mm[Hg]Georgia Tamica [employer]ER Work Phone: [address] [address]Abmarjmigo42-25-6717 08:44-0500Heart rate78 /min Georgia Tamica [employer] Work Phone: [address] [place] [address]Ktkvnardpe83-88-5672 08:44-0500Respiratory rate20 /minLisa Tamica LAPELER Work Phone: [facility] HospitalEhtjdzljxj14-73-4490 08:44-4163OiX3% (BldA) [Mass fraction]96 %Georgia Davey [employer]ER Work Phone: [facility] HospitalCbcgxaskml56-98-2329 08:44-0500Systolic blood hangkych092 mm[Hg]Georgia Davey LAPELER Work Phone: [facility] HospitalOyzqvksxgb36-40-3508 08:49-0500Body mass index (BMI) [Ratio]28.89 kg/z8JsbtpdJim Wilde LAPELER Work Phone: [facility] HospitalJfecrjbnkp10-59-9873 08:49-0500Body pdoxjb65.62 kgJim Wilde LAPELER Work Phone: [facility] HospitalNxxiotivox84-41-9050 08:49-0500Diastolic blood mnxpfich94 mm[Hg]Jim Wilde LAPELER Work Phone: [facility] HospitalLvzshsbmoj08-18-2992 08:49-0500Heart rate96 /min Jim Wilde LAPELER Work Phone: [place] [address]Tsdcdwaami30-24-7287 08:49-0500Systolic blood dpoeotcl104 mm[Hg]Jim Wilde LAPELER Work Phone: [facility] HospitalFbepvknmyq33-68-4832 07:51-0400Body siemuj361.9 cmChristopher Jamison DO Work Phone: [facility] HospitalYcdtfxhpew83-44-9895 07:51-0400Body mass index (BMI) [Ratio]28.86 kg/s4Mwqegpnftsb Jamison DO Work Phone: [place] [address]Hjinpaejap56-10-5705 07:51-0400Body .53 kgChristopher Jamison DO Work Phone: [place] [address]Tfxbczppmm23-35-8539 07:51-0400Diastolic blood mm[Hg]Christopher Jamison DO Work Phone: [place] [address]Qnyylhcuke19-63-6572 07:51-0400Heart rate84 /min Christopher Jamison DO Work Phone: noSt. Louis Children's HospitalRfxaahvrlm16-12-9573 07:51-3137YnG6% (BldA) [Mass fraction]97 %Nadia Swift DO Work Phone: noSt. Louis Children's HospitalXfwekldlgz15-25-0539 07:51-0400Systolic blood yhgymzzj534 mm[Hg]Nadia Swift DO Work Phone: noSt. Louis Children's HospitalVhkjpogydf17-28-9009 11:15-0400Body nypxmp026.9 cmLisa Yogeshz LAPELER Work Phone: [facility] HospitalZkqbkrtxln65-02-1240 11:15-0400Body mass index (BMI) [Ratio]28.48 kg/m2Lisa Racielholz LAPELER Work Phone: [facility] HospitalXwngjbsvhu76-28-6423 11:15-0400Body temperature 98.71 [degF]Georgia Tamica LAPELER Work Phone: [facility] HospitalUkgfzxrtfp43-47-2709 11:15-0400Body oyvvsr24.25 kgLisa Goodhholz LAPELER Work Phone: [facility] HospitalXbxcxqqete90-02-5265 11:15-0400Diastolic blood mm[Hg]Georgia Racielvidalz LAPELER Work Phone: [facility] HospitalYluypkbygo75-00-6400 11:15-0400Heart rate86 /min Georgia Racielholz LAPELER Work Phone: [facility] HospitalKxrcynpmis39-36-1364 11:15-0400Respiratory rate18 /minLisa Goodhholz LAPELER Work Phone: [facility] HospitalVnfjgeugpe57-83-7725 11:15-1970XxP0% (BldA) [Mass fraction]97 %Georgia Racielholz LAPELER Work Phone: [facility] HospitalZaemfekako31-45-6747 11:15-0400Systolic blood mm[Hg]Georgia Goodhholz LAPELER Work Phone: [facility] Healthcare Encounters Encounter DateEncounter TypeCare ProviderFacilityStart: 59-85-9477onssnapqbz [place] SADEFacility:CD:[id number]: 05-08-2025 End: 51-03-3134jpfrsfseqqQaqnfkg R WATERSFacility:EU EugeniaueStart: 05-08-2025 End: 07-80-6187Hqtervs encounter procedureCaitieroc STUART [facility] [place] start: 07-11-8972ovzfcmvjcqOedpyhs WATERSFacility:EU [place]kyStart: 03-29-2025 End: 88-51-3690Gjyzbd outpatient visit 15 minutesKwame Rodríguez [facility]- Work Phone: noms [facility] Behavioral HealthComment on above:Bipolar 2 disorder (HCC); SAMRA (generalized anxiety disorder) ; Tardive dyskinesiaStart: 03-29-2025 End: 97-07-8657Cccgqw OnlyKwame Rodríguez [facility]- Work Phone: noms [facility]al HealthComment on above:Bipolar 2 disorder (HCC); SAMRA (generalized anxiety disorder)Start: 02-22-2025 End: 83-57-0708Ucohxy flowsValerie Rodríguez HNP-BC Work Phone: noms [facility] HealthStart: 02-22-2025 End: 11-00-2922Udrpea flowsValerie Rodríguez HNP-BC Work Phone: noms [facility] HealthStart: 02-22-2025 End: 75-75-4055Dbotpl outpatient visit 15 minutesKwame Rodríguez HNP-BC Work Phone: noms [facility]al HealthComment on above:Tardive dyskinesia (Primary Dx); SAMRA (generalized anxiety disorder) ; Bipolar 2 disorder (HCC)Start: 02-22-2025 End: 28-90-0155qfzhyqatsgQTHHQVKR MARCOSNot AvailableStart: 02-16-2025 End: 59-88-8839WS/PT/Speech VisitRickalee Luis PT Work Phone: [facility] Physical TherapyComment on above:Functional movement disorder; Dyskinesia, tardiveStart: 02-15-2025 End: 26-18-7205Qlyxezm encounter procedureStevo Garcia PSYD Work Phone: Neurological RestorationComment on above:Adjustment disorder with mixed anxiety and depressed mood (Primary Dx); Functional movement disorder; Dyskinesia, tardiveStart: 02-15-2025 End: 66-74-9264wgdiuftvteACAMQ HASNIEFacility:[facility] Systemtart: 02-03-2025 End: 87-12-1292P-mail encounter from Leslie Ramos MD Work Phone: Neurological RestorationStart: 02-03-2025 End: 76-06-1737Rsodvc outpatient new 45 minutesOlena Gomez MD Work Phone: Neurological RestorationComment on above:Functional movement disorder (Primary Dx); Dyskinesia, tardive; Drug-induced parkinsonism (HCC)Start: 02-03-2025 End: 35-28-6708sfqhejclupVgex A Shuaib MD Work Phone: Neurological RestorationStart: 01-25-2025 End: 00-93-1031Itwinw outpatient visit 25 minutesKwame Rodríguez PMHNP-BC Work Phone: NOMS CI BHComment on above:Current episode of major depressive disorder without prior episode, unspecified depression episode s everity ; Bipolar 2 disorder (HCC); SAMRA (generalized anxiety disorder) ; Tremor; Tardive dyskinesiaStart: 01-25-2025 End: 89-48-8497ybuszjqgfnXVGNXCNH BRITTONNot AvailableStart: 01-24-2025 End: 35-03-9455Fxhajw flowsheetLisa Aichholz LAPELER Work Phone: NONX CWM FMStart: 01-24-2025 End: 74-74-1886Hfjhnm flowsheetLisa Aichholz LAPELER Work Phone: noms CWM FMStart: 01-24-2025 End: 99-01-4596Skdqco outpatient visit 25 minutesLisa Racielholz LAPELER Work Phone: noms CWM FMComment on above:Weight loss, unintentional (Primary Dx); Tardive dyskinesia; Mixed bipolar affective disorder, mild (HCC)Start: 01-24-2025 End: 11-53-2577bzhblmywpjKCJU AICHHOLZNot AvailableStart: 12-08-2024 End: 33-31-8915hxvbmswktrVIKW AICHHOLZNot AvailableStart: 11-30-2024 End: 87-06-4262Rlprkf flowsheetKwame Rodríguez PMHNP-BC Work Phone: NOMS CI BHStart: 11-30-2024 End: 15-58-4183Ivasbr flowsheetKwame Rodríguez PMHNP-BC Work Phone: NOMS CI BHStart: 11-30-2024 End: 22-65-0208Ghrdur outpatient visit 25 minutesKwame Rodríguez PMHNP-BC Work Phone: NOMS CI BHComment on above:Bipolar 2 disorder (CMS/HCC); SAMRA (generalized anxiety disorder) (CMS/HCC); Tremor; Tardive dyskinesia; Current episode of major depressive disorder without prior episode, unspecified depression episode severity (CMS/HCC)Start: 11-30-2024 End: 36-10-8424nwjzocksquELBKAPIV BRITTONNot AvailableStart: 11-09-2024 End: 63-20-5835Xmvial flowsheetKwame Rodríguez PMHNP-BC Work Phone: NOMS CI BHStart: 11-09-2024 End: 23-56-4271Vmoxhq flowsheetKwame Rodríguez PMHNP-BC Work Phone: NOMS CI BHStart: 11-09-2024 End: 81-02-2390Fdqkju outpatient visit 25 minutesKwame Rodríguez PMHNP-BC Work Phone: NOMS CI BHComment on above:Bipolar 2 disorder (CMS/HCC); SAMRA (generalized anxiety disorder) (CMS/HCC); Tardive dyskinesia; TremorStart: 11-09-2024 End: 01-18-8286alrbijkidtNLIHCXIV BRITDANYNot AvailableStart: 10-19-2024 End: 43-35-7336Zuxxyx flowsheetKwame Rodríguez PMHNP-BC Work Phone: NOMS CI BHStart: 10-19-2024 End: 06-19-6133Zlocoj flowsheetMerflex Rodríguez PMHNP-BC Work Phone: NOMS CI BHStart: 10-19-2024 End: 39-37-6358Ormpqt outpatient visit 25 minutesMerflex Rodríguez PMHNP-BC Work Phone: NOMS CI BHComment on above:Tardive dyskinesia; Bipolar 2 disorder (CMS/HCC); SAMRA (generalized anxiety disorder) (CMS/HCC)Start: 10-19-2024 End: 75-69-7428gjcraobgfxPZOOBIXV BRITTONNot AvailableStart: 10-17-2024 End: 50-33-9714Bxnjewbdf encounterMerflex Rodríguez PMHNP-BC Work Phone: NOMS CI BHComment on above:Advice OnlyStart: 10-05-2024 End: 68-36-9481gggzcxvbvcOWOQXBPP BRITDANYNot AvailableStart: 09-14-2024 End: 33-75-0099Qespwu flowsheetKwame Rodríguez PMHNP-BC Work Phone: NOMS CI BHStart: 09-14-2024 End: 09-25-8325Baxyyy flowsheetKwame Rodríguez PMHNP-BC Work Phone: NOMS CI BHStart: 09-14-2024 End: 59-31-4239Lclwqh outpatient visit 25 minutesMerflex Rodríguez PMHNP-BC Work Phone: NOMS CI BHComment on above:Bipolar 2 disorder (CMS/HCC); Tardive dyskinesia; TremorStart: 09-14-2024 End: 48-42-6048socfewxpymJCWQAAJA BRITTONNot AvailableStart: 08-22-2024 End: 20-22-6037Kuyzxf flowsheetBayley Malicki LPCNOMS CI BHStart: 08-22-2024 End: 34-18-6439Zshynm flowsheetBayley Malicki LPCNOMS CI BHStart: 08-22-2024 End: 30-30-1562zabawbkjhtQIFEQR MALICKINot AvailableStart: 08-10-2024 End: 13-62-1030Ssytip flowsheetMeredarcelia Rodríguez LAPELER Work Phone: NOMS CI BHStart: 08-10-2024 End: 10-14-2242Mwlycv flowsheetMeredarcelia Rodríguez LAPELER Work Phone: NOMS CI BHStart: 08-10-2024 End: 74-30-9255Ilpxik outpatient visit 25 minutesKwame Rodríguez LAPELER Work Phone: NOMS CI BHComment on above:Bipolar 2 disorder (CMS/HCC); Tardive dyskinesiaStart: 08-10-2024 End: 14-85-9095cflllbngomJFVDBYQO BRITTONNot AvailableStart: 07-19-2024 End: 36-29-8489Ofevfe flowsheetMeredarcelia Rodríguez LAPELER Work Phone: NOMS CI BHStart: 07-19-2024 End: 41-41-4836Srahlz flowsheetMerflex Rodríguez LAPELER Work Phone: NOMS CI BHStart: 07-19-2024 End: 96-19-5987Jdtxtz outpatient visit 25 minutesKwame Rodríguez LAPELER Work Phone: NOMS CI BHComment on above:Bipolar 2 disorder (CMS/HCC); Tardive dyskinesiaStart: 07-19-2024 End: 58-87-3837gwcnowjlxlUZLCRHBS BRITTONNot AvailableStart: 06-29-2024 End: 20-76-6360Jdknmz flowsheetJn Mccullough DO Work Phone: NOMS BWM GENSStart: 06-29-2024 End: 11-72-6040Qkzopk flowsheetJn Mccullough DO Work Phone: NOMS BWM GENSStart: 06-29-2024 End: 16-84-3129Zrchxv outpatient new 45 minutesKyle Cecilia DO Work Phone: NOMS BWM GENSComment on above:Rectal bleeding (Primary Dx)Start: 06-29-2024 End: 92-58-8721thrqayqvksINBF TRINIDADETTNot AvailableStart: 06-22-2024 End: 02-41-0485Tqarvg Gloria Rodríguez LAPELER Work Phone: NOMS CI BHStart: 06-22-2024 End: 06-76-9395Gbiyob Gloria Rodríguez LAPELER Work Phone: NOMS CI BHStart: 06-22-2024 End: 50-88-7638Ofwfll outpatient visit 40 minutesKwame Rodríguez LAPELER Work Phone: NOMS CI BHComment on above:Bipolar 2 disorder (CMS/HCC); Tardive dyskinesiaStart: 06-22-2024 End: 44-60-8916bdsugeiyoySILCXDYY BRITTONNot AvailableStart: 06-13-2024 End: 82-69-8056Ulefxm flowsheetGeorgia Davey LAPELER Work Phone: NOCD CWM FMStart: 06-13-2024 End: 80-08-8804Jhdeqt flowsheetGeorgia Davey LAPELER Work Phone: NOAG CWM FMStart: 06-13-2024 End: 61-46-9198Xvkgoaz encounter statusLisa Tamica LAPELER Work Phone: NOVQ HealthcareStart: 06-13-2024 End: 75-61-1269Iasveegv preventive med est patient 40-64yrsLisa Davey LAPELER Work Phone: NOFT CWM FMComment on above:Encounter for wellness examination in adult (Primary Dx); Tremor, unspecified; Overweight (BMI 25.0-29.9); Bipolar 1 disorder ([facility]); RashStart: 06-13-2024 End: 72-73-5173rascnfsnuqURUX Kelechi AvailableStart: 06-02-2024 End: 74-25-0586Rbqajp Tony Wilde LAPELER Work Phone: [facility] [place] [facility]TEStart: 06-02-2024 End: 72-43-1838Xuceqn Tony Wilde LAPELER Work Phone: N[facility] [facility]TEStart: 06-02-2024 End: 79-65-4427axaxgrpgstZPOHME MORRISNot AvailableStart: 06-02-2024 End: 65-42-1209Hakmdp outpatient visit 25 minutesJim Wilde LAPELER Work Phone: NOMS [facility] ROUTEComment on above:Tardive dyskinesia (Primary Dx); Tremor, unspecifiedStart: 05-18-2024 End: 69-02-6334Tcfefsxqt Result EncounterChristopher Jamison DO Work Phone: NOMS External Department UnsolicitedStart: 05-18-2024 End: 01-83-7179Zadxukeoi Result EncounterChristopher Jamison DO Work Phone: NOMS External Department UnsolicitedStart: 05-05-2024 End: 59-91-2004Wyhksx flowsheetChristopher Jamison DO Work Phone: N[facility] [facility]TEStart: 05-05-2024 End: 37-86-4797Bvprhv flowsheetChristopher Jamison DO Work Phone: N[facility]S [facility] [facility]TEStart: 05-05-2024 End: 34-88-3248Wyvljf outpatient new 45 minutesChristopher Jamison DO Work Phone: NOMS [facility] [facility] ROUTEComment on above:Ataxia (Primary Dx); Tremor, unspecified; Tardive dyskinesiaStart: 05-05-2024 End: 49-64-5333djcpzbadbuOBEFWRRGXNT HASSETTNot AvailableStart: 04-19-2024 End: 58-54-8861Ziigoo Stephon Davey LAPELER Work Phone: NOMS CWM FMStart: 04-19-2024 End: 85-83-4890Fqwkkr Stephon Davey LAPELER Work Phone: NOTK CWM FMStart: 04-19-2024 End: 96-71-2051Rrvkpk outpatient visit 25 minutesGeorgia Davey LAPELER Work Phone: NOBJ CWM FMComment on above:Tremor, unspecified (Primary Dx); Overweight (BMI 25.0-29.9)Start: 04-19-2024 End: 60-11-3714suydumitaiJOPK AICHHOLZNot AvailableStart: 09-18-2023 End: 97-97-4132Rwegfmliz Result EncounterGeorgia Davey LAPELER Work Phone: noms External Department UnsolicitedStart: 09-18-2023 End: 53-87-4480Wxguevvbq Result EncounterGeorgia Davey LAPELER Work Phone: noms External Department UnsolicitedStart: 09-02-2023 End: 63-68-8588butqbyqmdhMkirrv T Blackston PT Work Phone: NOMS CI PTComment on above:Internal derangement of right shoulder (Primary Dx); S/P arthroscopy of right shoulderStart: 86-80-3129Tehfaa flowsChanaremle T Blackston PT Work Phone: NOMS CI PTStart: 51-21-9253Dwnlss flowsheetJeremy T Blackston PT Work Phone: NOMS CI PTStart: 08-31-2023 End: 51-74-9955ukblbrisbqSqnhym T Blackston PT Work Phone: NOMS CI PTComment on above:Internal derangement of right shoulder (Primary Dx); S/P arthroscopy of right shoulderStart: 08-28-2023 End: 23-31-2097aaujdhflwdQwrkbdtElen Solomon PTANOMS CI PTComment on above:Internal derangement of right shoulder (Primary Dx); S/P arthroscopy of right shoulderStart: 41-38-9077Euhgru Saud Solomon PTANOMS CI PTStart: 60-25-7612Jtuobk Saud Solomon PTANOMS CI PTStart: 08-26-2023 End: 30-04-2022jextdpxqxdZipmlji Lawrence PTANOMS CI PTComment on above:Internal derangement of right shoulder (Primary Dx); S/P arthroscopy of right shoulderStart: 47-41-0243Jcwazc Tripp Maza PTANOMS CI PTStart: 43-95-3900Ftnbzr Tripp Maza CAROUSEL ATTENDANT NOMS CI PTStart: 08-24-2023 End: 85-58-4404vcgaydbxzbFwfpgz Tattersall PTANOMS CI PTComment on above: Internal derangement of right shoulder (Primary Dx); S/P arthroscopy of right shoulderStart: 80-38-9252Jcflg abstractingGio BLOOD Work Phone: noms ORTHOPAEDICSStart: 43-37-2164Avvozrxaw for general adult medical examination without abnormal findingsCNP [place] Khan [facility] HospitalStart: 04-23-2022 End: 84-05-2486xmxkrubhwcVPG GEOR[place]IA DAVEYFacility:P9Ibfsb: 04-23-2022 End: 43-44-5601Ciehvohww for general adult medical examination without abnormal findingsCNP GEOR[place]IA TAMICAFacility:F5Xjewv: 30-57-7407ahvswywrfjPXG GEOR[place]IA DAVEY Facility:F1Remnm: 08-30-2021 End: 10-20-8146dnbeulhcjuKUQ GEOR[place]IA TAMICAFacility:J0Lqrbw: 08-20-2021 End: 83-48-3343qxujkeozwqFOP GE[place]IA TAMICAFacility:H1 Procedures DateProcedureProcedure DetailPerforming ClinicianStart: 08-22-2024 End: 14-58-0724Iirebqrsjdo diagnostic evaluationBipolar 2 disorder (CMS/HCC) Armen Hernández LPCComment on above:Bipolar 2 disorder (CMS/HCC)Start: 05-18-2024 MRI HEAD/BRAIN WO/W CONTRChristopher Jamison DO Work Phone: Start: 03-75-3718HK CHEST 2VLisa Tamica LAPELER Work Phone: Start: 87-06-0363YS PULMONARY FUNCTION TESTLisa Aichluis LAPELER Work Phone: H/O: vasectomyPatrick STUART History of cholecystectomyPatrick STUART History of repair of musculotendinous cuff of shoulder Taras SADE Plan of Treatment DateCare ActivityDetailAuthorStart: 08-07-2025 End: 39-20-0827Ppkzits encounter /19/2026 3:30 PM EST [facility] [address] [place] [address] Kwame Rodríguez [facility]HNOT[facility] [address] [place] [address] [facility] Start: 06-06-2025 End: 83-23-8419Wxauqko encounter ugbituujo53/18/2025 9:00 AM EST Office Visit [facility] [address] [place] [address] Sudha Soto, TRACK VEHICLE REPAIRER.FOURCHETTE SEWER [address] [place] [address] follow upNeurological RestorationComment on above:follow up Start: 04-10-2025 End: 59-29-2798Shvuyec encounter ilqtoughx27/22/2025 9:40 AM EDT Office Visit [facility] [address] [place] [address] Georgia Davey, JA [address] [place] [address] [facility]: 03-29-2025 End: 67-62-8873Vxbcszx encounter borfxfaiv50/10/2025 8:00 AM EDT Office Visit [facility] [address] [facility] [address] [place] [phone] Kwame Rodríguez [facility] [address] [facility] [address] [place] [address] [facility] Start: 92-48-8017KTJUN-19 Vaccine ( season)COVID-19 Vaccine ( season)NOMS HealthcareStart: 21-11-7863Kzsihmcbq vaccinationInfluenza Vaccine (#1)[facility]: 02-22-2025 End: 36-56-4526Ptvheog encounter cdhopkgav90/06/2025 8:00 AM EDT Office Visit [facility] [address] [facility] [address] [place] [phone] Kwame Rodríguez [facility] [address] [facility] [address] [place] [phone] ArrivedNOMS [facility] Behavioral HealthComment on above:ArrivedStart: 02-20-2025 End: 25-90-8634Fwveaca encounter fzciqxwck97/04/2025 8:00 AM EDT Office Visit N[facility] [address] [facility] [address] [place] [address] Kwame Rodríguez [facility] [address] [facility] [address] [place] [address] NOMS CI BHStart: 02-16-2025 End: 62-31-3469CV/PT/Speech Visit02/16/2025 7:45 AM EDT OT/PT/Speech Visit [facility] [address] [place] [address] [place] [address] [place] [address] 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]; Dyskinesia, tardive [G24.01][facility] Physical TherapyComment on above: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]; Dyskinesia, tardive [G24.01] Start: 02-15-2025 End: 22-48-2292Szhqwjf encounter zjqublxdf33/30/2025 8:00 AM EDT Office Visit [facility] [address] [place] [address] Stevo Garcia PSYD [address] [place] [address] 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]; Dyskinesia, tardive [G24.01]Neurological RestorationComment on above: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]; Dyskinesia, tardive [G24.01]Start: 01-25-2025 End: 34-48-9760Tarcnma encounter /09/2025 8:00 AM EDT Office Visit [facility] [address] [facility] [address] [place] [address] Kwame Rodríguez [facility]- [address] [facility] [address] [place] [address] NOMS CI BHStart: 01-24-2025 End: 54-25-0804Hjnoine encounter uwhtdjpjv70/08/2025 8:40 AM EDT Office Visit [facility] [address] [address] Georgia Davey, JA [address] [place] [address] Weight loss, unintentional (Primary Dx)NOMS CWM FMComment on above:Weight loss, unintentional (Primary Dx)Start: 12-08-2024 End: 24-63-2256Vsrvsjp encounter vlyidvvxl53/22/2025 8:40 AM EDT Office Visit [facility] [address] [place] [address] Georgia Davey, JA [address] [place] [address] NOMS CWM FMStart: 11-30-2024 End: 50-71-4939Teuapiz encounter procedureNOMS CI BHComment on above:Bipolar 2 disorder (CMS/HCC); SAMRA (generalized anxiety disorder) (CMS/HCC); Tremor; Tardive dyskinesiaStart: 11-09-2024 End: 41-84-5028Nfhonoe encounter procedureNOMS CI BHComment on above:Bipolar 2 disorder (CMS/HCC); SAMRA (generalized anxiety disorder) (CMS/HCC); Tardive dyskinesia; TremorStart: 11-02-2024 End: 25-58-2616Iaqlpmo encounter carrlnfag68/16/2025 8:00 AM EDT Office Visit [facility] [address] [facility] [address] [place] [address] Kwame Rodríguez PMP-BC [address] [facility] [address] [place] [address] NOMS CI BHStart: 10-19-2024 End: 40-85-3964Mbxuwcn encounter procedureNOMS CI BHComment on above:Arrived Start: 10-05-2024 End: 07-75-0546Ngcrqbh encounter /19/2025 8:00 AM EDT Office Visit [facility] [address] [facility] [address] [place] [address] Kwame Rodríguez, HNP-BC [address] [facility] [address] [place] [address] NOMS CI BHStart: 09-28-2024 End: 03-87-3982Gtiogo Work09/28/2024 9:30 AM EDT Social Work [facility] [address] [place] [address] Armen Hernández LPC NOMS CI BHStart: 09-14-2024 End: 38-44-6642Iuibnia encounter /26/2025 10:30 AM EST Office Visit [facility] [address] [place] [address] Kwame Rodríguez, PMHNP-BC [address] [place] [address] Bipolar 2 disorder (CMS/HCC); Tardive dyskinesia; TremorNOMS CI BHComment on above:Bipolar 2 disorder (CMS/HCC); Tardive dyskinesia; TremorStart: 09-07-2024 End: 94-40-0064Yefnqbn encounter uvqokngeu82/19/2025 10:00 AM EST Office Visit [facility] [address] [place] [address] Kwame Rodríguez, LAPELER [address] [place] [address] NOMS CI BHStart: 08-22-2024 End: 44-51-5254Sxiuhh WorkNOMS CI BHComment on above:ArrivedStart: 08-10-2024 End: 19-72-6508Itcpkxe encounter procedureNOMS CI BHComment on above:Bipolar 2 disorder (CMS/HCC); Tardive dyskinesiaStart: 07-25-2024 End: 21-40-0552Fegkgz Work07/25/2024 9:30 AM EST Social Work [facility] [address] [place] [address] Armen Hernández LPC NOMS CI BHStart: 07-19-2024 End: 65-99-0809Jlbyhpc encounter procedureNOMS CI BHComment on above:Bipolar 2 disorder (CMS/HCC); Tardive dyskinesiaStart: 06-29-2024 End: 19-79-8286Exfrxki encounter procedureNOMS BWM GENSComment on above:Arrived Start: 06-22-2024 End: 30-41-1133Awowbdr encounter procedureNOMS CI BHComment on above:Tardive dyskinesia; Tremor, unspecifiedStart: 06-13-2024 End: 65-25-5478ASR W Auto Differential panel - BloodCBC and differential Lab Routine Encounter for wellness examination in adult Expected: 06/13/2024 (A pproximate), Expires: 06/13/2025[facility] Work Phone: Comment on above:Expected: 06/13/2024 (Approximate), Expires: 06/13/2025Start: 06-13-2024 End: 80-35-5600Yxahzdobklzaq metabolic 2000 panel - Serum or PlasmaComprehensive metabolic panel Lab Routine Encounter for wellness examination in adult Expected: 06/13/2024 (Approximate), Expires: 06/13/2025[facility] HealthcareComment on above:Expected: 06/13/2024 (Approximate), Expires: 06/13/2025Start: 06-13-2024 End: 79-04-4821Wgvwr 1996 panel - Serum or PlasmaLipid panel Lab Routine Encounter for wellness examination in adult Expected: 06/13/2024 (Approximate), Expires: 06/13/2025AL HealthcareComment on above:Expected: 06/13/2024 (Approximate), Expires: 06/13/2025Start: 06-13-2024 End: 09-74-0915Beaecqvervf [Units/volume] in Serum or PlasmaTSH Lab Routine Encounter for wellness examination in adult Expected: 06/13/2024 (Approximate), Expires: 06/13/2025AL HealthcareComment on above:Expected: 06/13/2024 (Approximate), Expires: 06/13/2025Start: 06-13-2024 End: 58-29-4197Xokhonwghg complete panel - UrineUrinalysis with reflex microscopic (clean catch) Lab Routine Encounter for wellness examination in a dult Expected: 06/13/2024 (Approximate), Expires: 06/[facility]/2025[facility] Comment on above:Expected: 06/13/2024 (Approximate), Expires: 06/13/2025Start: 06-13-2024 End: 98-91-3773Dadrnky encounter procedureNOMS [facility] FMComment on above:Encounter for wellness examination in adult (Primary Dx); Tremor, unspecified; Overweight (BMI 25.0-29.9); Bipolar 1 disorder ([facility])Start: 06-02-2024 End: 65-17-0983Bofxuee encounter drfposrad62/14/2024 8:40 AM EST Office Visit [facility] [place] [address] [place] [address] Jim Wilde NP [address] [place], [place] [id number] [facility]: 05-05-2024 End: 33-74-0323DR Brain WO and W contrast IVMR brain w and wo contrast routine Imaging Routine Ataxia Expected: 05/05/2024, Expires: 05/05/2025[facility] Work Phone: comment on above:Expected: 05/05/2024, Expires: 05/05/2025Start: 05-05-2024 End: 34-33-3495Csypmve encounter zvyvyaqkg74/17/2024 8:00 AM EDT Office Visit [facility] [place] [address] [place] [id number] Nadia Swift DO [address] [place] [address] Tremor, unspecifiedNOMS [facility]TEComment on above:Tremor, unspecifiedStart: 04-19-2024 End: 33-80-4991Xvwvpoq encounter ilfdztvse91/01/2024 11:00 AM EDT Office Visit [facility] FM [address] [place] [address] Georgia Davey NP [address] [place] [address] [facility] FMComment on above:ArrivedStart: 03-20-2024 Covid-19 Vaccine ( season)Cov[facility]19 [facility] ( [facility] End: 03-27-5054Mjivgma encounter qyiswkgbd88/23/2024 10:45 AM EST Office Visit [facility] [address] [facility] [address] [place] [address] Gio Nova PA [address] [place] [address] [facility]: 09-11-2023 End: 16-57-1650nxiplbzgrv62/23/2024 9:30 AM EST Treatment [facility] [address] [facility] [address] [place] [address] Gaudencio Solomon PTANOMS CI PTStart: 09-09-2023 End: 97-72-9529atrsbycszc35/21/2024 11:00 AM EST Treatment [facility] [address] [facility] [address] [place] [address] Mikey Wilson, PT [address] [facility] [address] [place] [address] [facility] PTStart: 09-08-2023 End: 33-54-0627Gyzgdmz encounter hdyfflxca07/20/2024 9:00 AM EST Office Visit [facility] FM [address] [place] [address] Georgia Davey, JA [address] [place] [address] [facility] CWM FMStart: 09-07-2023 End: 16-19-9232lfslbsvedqCURI CI PTStart: 09-07-2023 End: 41-36-0119Xtpsxnz encounter halpxuysy36/19/2024 10:00 AM EST Office Visit [facility] [address] [facility] [address] [place] [address] Gio Nova PA [address] [place] [address] [place] [address] [facility] CI ORTHOPAEDICSStart: 09-04-2023 End: 22-91-0670uanmozucsj95/16/2024 11:00 AM EST Treatment [facility] PT [address] [facility] [address] [place] [address] Gaudencio Solomon PTANOMS CI PTStart: 09-02-2023 End: 91-31-5293iqrpszvepkMQVW CI PTStart: 08-31-2023 End: 04-48-0045zsizqfbpepWCIB CI PTComment on above:ArrivedStart: 08-28-2023 End: 27-80-7919jcmwovgpeu95/09/2024 11:00 AM EST Treatment [facility] PT [address] [facility] [address] [place] [address] Gaudencio Solomon PTANOMS CI PTStart: 08-26-2023 End: 99-43-0094lzydfheppaILNZ CI PTComment on above:Internal derangement of right shoulder (Primary Dx); S/P arthroscopy of right shoulderStart: 08-24-2023 End: 73-35-6787jzhfykwuwi38/05/2024 10:00 AM EST Treatment [facility] PT [address] [facility] [address] [place] [address] Desire Maza PTA ArrivedNOMS CI PTComment on above:ArrivedStart: 63-25-4896Qsurzctxf vaccinationInfluenza Vaccine (#1)[facility] HealthcareStart: 04-27-3238Baeku panel Lipid ScreeningMartin [facility] Hospitaltart: 17-69-8583ONA Vaccine (1 - 3-dose SCDM series)HPV Vaccine (1 - 3-dose SCDM series)[facility]: 21-74-9617WGY Vaccines (1 - 3-dose SCDM series)HPV Vaccines (1 - 3-dose SCDM series)[facility]OM HealthcareStart: 60-18-9366Nvjeanlda B Vaccine (1 of 3 - 19+ 3-dose series) Hepatitis B Vaccine (1 of 3 - 19+ 3-dose series)[facility]: 03-34-7343Pqwdgayqg B Vaccines (1 of 3 - 19+ 3-dose series)Hepatitis B Vaccines (1 of 3 - 19+ 3-dose series)[facility] HealthcareStart: 70-76-1177Ndusm microalbumin profileDTaP,Tdap,Td Vaccine (1 - Tdap)[facility]: 53-53-3772Mhezkth ScreeningAnxiety ScreeningMartin Memorial Hospitaltart: 63-98-1533Fvuohfkqcd Screening Depression ScreeningMartin [facility] Hospitaltart: 71-79-6704Ieuddwwhm C screening Hepatitis C ScreeningMartin [facility] Hospitalt[facility]: 67-90-6890KVZ screeningHIV Screening [facility]: 41-97-7982Pdncrqm of varicella vaccinationVaricella Vaccines (1 of 2 - 13+ 2-dose series)[facility]OM HealthcareStart: 1989 DTaP/Tdap/Td Vaccines (1 - Tdap)DTaP/Tdap/Td Vaccines (1 - Tdap)[facility] Start: 74-05-6437RPO Vaccines (1 of 1 - Standard series)MMR Vaccines (1 of 1 - Standard series)[facility] Healthcare Payers DatePayer CategoryPayerPolicy [id number] Health Insurance [id number] [employer] [id number] 2022-Present [phone] [address] [address] [place] [id number] [id number] 2.16.840.1.486586.3.579.2. [id number] 2..1.204261.3.57[id number] 2..1.563828.3.57[id number] 2..1.962390.3.57[id number] 2..1.062817.3.57[id number] 2..1.863975.3.57[id number] 2..1.073596.3.57[id number] 2..1.338911.3.579.2.781645-99-1881Hxfnjxi3572191 2..1.427595.3.579.2.007155-64-0377Zpmhymp5288566 2..1.065944.3.579.2.255932-12-4251Cvozqzh3434549 2..1.599128.3.579.2.354191-38-5770Ficyzld5335018 2..1.970224.3.579.2.458579-02-5928Dachhnb9841195 2..1.880393.3.579.2.642621-94-3110Tuawicn0641532 2..1.477882.3.57[id number] 2..1.864500.3.579.2.571758-10-6054Xqmolfz0217591 2..1.446016.3.579.[id number] 2..840.1.943775.3.579.2.[id number] 2.16.840.1.880782.3.57[id number] 2.16.840.1.587902.3.579.2.[id number] 2.16.840.1.120962.3.579.2.722245-79-5197Tzoehid1778628 2..840.1.637734.3.579.2.530719-34-1068Etfmmga5330099 2..840.1.001111.3.579.2.370903-67-1532Navnvuq1378120 2.0.1.100408.3.579.2.039120-13-2837Uyvqhcl11896639 2..840.1.816102.3.579.2.45140-62-1474Azdc-svk02741739669-38-4434Ylyquci [id number] Social History DateTypeDetailFacilityStart: 03-16-2023 End: 04-28-9667Fmednua smoking status NHISNever smoked tobaccoNOMS Healthcare Start: 08-07-2023 End: 53-89-6648Gglhcjq intakeCurrent drinker of alcohol (finding)[facility] Start: 05-27-2023 End: 82-93-2124Akugodj of Social functionNOMS HealthcareStart: 05-27-2023 End: 04-66-8378Fihdeys Use Disorder Identification Test - Consumption [AUDIT-C] [facility] HealthcareHow often to you have a drink containing alcohol?Monthly or less [facility] HealthcareHow many standard drinks containing alcohol do you have on a typical day?1 or 2NOMS HealthcareHow often do you have 6 or more drinks on 1 occasion?NeverNOMS HealthcareStart: 70-64-0719Oegdhke Comment1-2 drinks, monthly or less.[facility] HealthcareStart: 88-48-4516Lyn Assigned At BirthNot on fileNOMS HealthcareStart: 03-16-2023 End: 18-87-9207Cakppne intakeEx-drinker (finding)[facility] HealthcareStart: 05-17-2023 End: 31-07-9442Ilpsrkae to SARS-CoV-2 (event)Not sureNOMS HealthcareStart: 10-01-2022 End: 03-43-0416Wr you belong to any clubs or organizations such as congregational groups, unions, fraternal or athletic groups, or school groups?Patient declined [facility] HealthcareAre you now , , , , never or living with a partner?MarriedNOMS HealthcareDo you feel stress - tense, restless, nervous, or anxious, or unable to sleep at night because yourmind is troubled all the time - these days [OSQ]Rather muchN[facility]S Healthcare(I/We) worried whether (my/our) food would run out before (I/we) got money to buy more.Never trueNOMS HealthcareIn the past 12 months, was there a time when you were not able to pay the mortgage or rent on time?NoNOMS HealthcareStart: 06-22-2024 End: 09-00-5493Dvzmutd use and exposureSmokeless tobacco non-userN[facility]S Healthcare Start: 70-58-9254Hegnnngql11XOQG HealthcareStart: 92-83-6394Jkywgpk Comment caffiene- 3 sweet tea and occasion popNOMS HealthcareStart: 04-01-5750Zcaegvw CommentrareCleveland ClinicSexual OrientationExecutive Urology of [facility] sexMale (finding)[facility] Functional Status ShmbZvuktpipftVhssqoGfbkisdp05-96-6777Kde difficult have these problems made it for you to do your work, take care of things at home, or get along with other people?Very difficult 10/19/2024 7:52 AM Juliana Josue LPN Very difficult [facility]Eepbzgpgep43-19-6252Xgnociogrph anxiety disorder 7 item (SAMRA-7)[facility] HospitalVxhmwnqahh91-10-7506Gzactff Health Questionnaire 2 item (PHQ-2) [Reported][facility] HospitalMnndzlurwh20-74-3751IGT-5 quick depression assessment panel [Reported.PHQ][facility] HospitalMtnwtuvjaq31-22-0296Crqkw score [AUDIT-C]1 06/22/2024 8:16 AM Juliana Daniels LPNNOMS Fpobrbzrzz22-68-3502Htbsrsk Health Questionnaire 2 item (PHQ-2) [Reported][facility] HospitalIpjhwnscld62-69-4400FJV-7 quick depression assessment panel [Reported.PHQ][facility] Clinical Notes 08-31-2023 to 05-08-2025 Note Date & ZxxoFjzsPjzlqbim91-20-6580 Hospital Discharge instructions Patient Education 05/08/2025 15:13:48 Ureteral Stent Implantation, Care After Ureteral Stent Implantation, Care After The following information offers guidance on how to care for yourself after your procedure. Your health care provider may also give you more specific instructions. If you have problems or questions, contact your health care provider. What can I expect after the procedure? After the procedure, it is common to have: Nausea. Mild pain when you urinate. You may feel this pain in your lower back or lower abdomen. The pain should stop within a few minutes after you urinate. This pattern may last for up to 1 week. A small amount of blood in your urine for several days. Follow these instructions at home: Medicines Take gcfm-nvn-zoxujek and prescription medicines only as told by your health care provider. If you were prescribed antibiotics, take them as told by your health care provider. Do not stop using the antibiotic even if you start to feel better. If you were given a sedative during the procedure, it can affect you for several hours. Do not drive or operate machinery until your health care provider says that it is safe. Ask your health care provider if the medicine prescribed to you: ?Requires you to avoid driving or using machinery. ?Can cause constipation. You may need to take these actions to prevent or treat constipation: ?Take fweh-ekj-veutrdz or prescription medicines. ?Eat foods that are high in fiber, such as beans, whole grains, and fresh fruits and vegetables. ?Limit foods that are high in fat and processed sugars, such as fried or sweet foods. Activity Rest as told by your health care provider. Do not sit for a long time without moving. Get up to take short walks every 1 2 hours. This will improve blood flow and breathing. Ask for help if you feel weak or unsteady. Return to your normal activities as told by your health care provider. Ask your health care provider what activities are safe for you. General instructions If you have a catheter: ?Follow instructions from your health care provider about taking care of your catheter and collection bag. ?Do not take baths, swim, or use a hot tub until your health care provider approves. Ask your health care provider if you may take showers. You may only be allowed to take sponge baths. Drink enough fluid to keep your urine pale yellow. Do not use any products that contain nicotine or tobacco. These products include cigarettes, chewing tobacco, and vaping devices, such as e-cigarettes. These can delay healing after surgery. If you need help quitting, ask your health care provider. Keep all follow-up visits. Contact a health care provider if: You start passing blood clots, or you have more than a small amount of blood in your urine. You have pain that gets worse or does not get better with medicine, especially pain when you urinate. You have trouble urinating. You feel nauseous or you vomit again and again during a period of more than 2 days after the procedure. You have a fever. Get help right away if: You are passing blood clots that are 1 inch (2.5 cm) or larger in size. You are leaking urine (have incontinence), or you cannot urinate. The end of the stent comes out of your urethra. You have sudden, sharp, or severe pain in your abdomen or lower back. You have swelling or pain in your legs. You have trouble breathing. These symptoms may be an emergency. Get help right away. Call 911. Do not wait to see if the symptoms will go away. Do not drive yourself to the hospital. Summary After the procedure, it is common to have mild pain when you urinate that goes away within a few minutes after you urinate. This may last for up to 1 week. Take ybxs-luf-uajqtff and prescription medicines only as told by your health care provider. Drink enough fluid to keep your urine pale yellow. Call your health care provider if you start passing blood clots, or you have more than a small amount of blood in your urine. This information is not intended to replace advice given to you by your health care provider. Make sure you discuss any questions you have with your health care provider. Document Revised: 08/11/2022 Document Reviewed: 08/11/2022 [employer] Patient Education 2023 [employer]. 05/08/2025 15:13:47 Ureteral Stent Implantation Ureteral Stent Implantation Ureteral stent implantation is a procedure to insert (implant) a flexible, soft, plastic tube (stent) into a ureter. Ureters are the tubelike parts of the body that drain urine from the kidneys. A ureteral stent may be implanted: After a procedure to remove a blockage from the ureter (ureterolysis or pyeloplasty). To open the flow of urine when a blockage is caused by a kidney stone, tumor, blood clot, or infection. You have two ureters, one on each side of your body. The ureters connect your kidneys to your bladder. The stent is placed so that one end is in your kidney, and one end is in your bladder. The stentsupports the ureter while it heals and helps to drain urine. The stent is usually taken out after your ureter has healed. Depending on your condition, you may have a stent for just a few weeks, or you may have a long-term stent that will need to be replaced every few months. Tell a health care provider about: Any allergies you have. All medicines you are taking, including vitamins, herbs, eye drops, creams, and fpyv-kgc-sgxycnp medicines. Any problems you or family members have had with anesthetic medicines. Any bleeding problems you have. Any surgeries you have had. Any medical conditions you have. Whether you are or may be . What are the risks? Generally, this is a safe procedure. However, problems may occur, including: Infection. Bleeding. Allergic reactions to medicines. Damage to nearby structures or organs, such as tearing (perforation) of the ureter. Movement of the stent away from where it is placed during surgery (migration). Buildup of a crust or hard coating (encrustation) on the stent. This happens when bacteria in the body form crystals on the stent, causing it to weaken. What happens before the procedure? Medicines Ask your health care provider about: Changing or stopping your regular medicines. These include any diabetes medicines or blood thinnersyou take. Taking medicines such as aspirin and ibuprofen. These medicines can thin your blood. Do not take them unless your health care provider tells you to. Taking bnim-qwy-xrkzemz medicines, vitamins, herbs, and supplements. When to stop eating and drinking Follow instructions from your health care provider about what you may eat and drink. These may include: 8 hours before your procedure ?Stop eating most foods. Do not eat meat, fried foods, or fatty foods. ?Eat only light foods, such as toast or crackers. ?All liquids are okay except energy drinks and alcohol. 6 hours before your procedure ?Stop eating. ? Drink only clear liquids, such as water, clear fruit juice, black coffee, plain tea, and sports drinks. ?Do not drink energy drinks or alcohol. 2 hours before your procedure ?Stop drinking all liquids. ?You may be allowed to take medicines with small sips of water. If you do not follow your health care provider's instructions, your procedure may be delayed or canceled. General instructions Do not use any products that contain nicotine or tobacco for at least 4 weeks before the procedure.These products include cigarettes, chewing tobacco, and vaping devices, such as e-cigarettes. If you need help quitting, ask your health care provider. You may have an exam or testing, such as imaging or blood tests. If you will be going home right after the procedure, plan to have a responsible adult: ?Take you home from the hospital or clinic. You will not be allowed to drive. ?Care for you for the time you are told. Ask your health care provider what steps will be taken to help prevent infection. These steps may include: ?Removing hair at the surgery site. ?Washing skin with a soap that kills germs. ?Taking antibiotic medicine. What happens during the procedure? An IV will be inserted into one of your veins. You may be given: ?A medicine to help you relax (sedative). ?A medicine to make you fall asleep (general anesthetic). A thin, tube-shaped instrument with a light and tiny camera at the end (cystoscope) will be inserted into your urethra. The urethra is the part of your body that drains urine from the bladder. The urethra opens at the end of the penis or in front of the vaginal opening. The cystoscope will be passed into your bladder. Guided imagery using X-ray may be used to pass a thin wire (guide wire) through your bladder and into your ureter. This wire is used to guide the stent into your ureter. The stent will be inserted into your ureter. The guide wire and the cystoscope will be removed. A thin, flexible tube (catheter) may be put through your urethra so that one end is in your bladder. This helps to drain urine from your bladder. The procedure may vary among hospitals and health care providers. What happens after the procedure? Your blood pressure, heart rate, breathing rate, and blood oxygen level will be monitored until youleave the hospital or clinic. You may continue to get medicine and fluids through an IV. You may have some soreness or pain in your abdomen and urethra. You may be given medicines for this. You will be encouraged to get up and walk around as soon as you can. You may have a catheter draining your urine. Summary Ureteral stent implantation is a procedure to insert a flexible, soft, plastic tube (stent) into a ureter. You may have a stent implanted to support the ureter while it heals after a procedure or to open the flow of urine if there is a blockage. You may have a stent for just a few weeks, or you may have a long-term stent that will need to be replaced every few months. Follow instructions from your health care provider about taking medicines and about eating and drinking before the procedure. This information is not intended to replace advice given to you by your health care provider. Make sure you discuss any questions you have with your health care provider. Document Revised: 08/11/2022 Document Reviewed: 08/11/2022 [employer] Patient Education 2023 [employer]. 05/08/2025 15:13:43 Laser Therapy for Kidney Stones, Care After Laser Therapy for Kidney Stones, Care After After laser therapy for kidney stones, it is common to have: Pain. A burning feeling when you pee (urinate). Small amounts of blood in your pee (urine). A need to pee a lot. Parts of the kidney stone in your pee. Mild discomfort in your back when you pee. You may have this if you had a small mesh tube (stent) placed during the procedure. Follow these instructions at home: Medicines Take plck-rcf-zwunqtc and prescription medicines only as told by your health care provider. If you were prescribed antibiotics, take them as told by your provider. Do not stop using the antibiotic even if you start to feel better. Ask your provider if the medicine prescribed to you: ?Requires you to avoid driving or using machinery. ?Can cause constipation. You may need to take these actions to prevent or treat constipation: ?Drink enough fluid to keep your pee pale yellow. ?Take xeam-cwo-oilchqy or prescription medicines. ?Eat foods that are high in fiber, such as beans, whole grains, and fresh fruits and vegetables. ?Limit foods that are high in fat and processed sugars, such as fried or sweet foods. Activity If you were given a sedative during the procedure, it can affect you for several hours. Do not drive or operate machinery until your provider says that it is safe. Return to your normal activities as told by your provider. Ask your provider what activities are safe for you. General instructions Your provider may recommend that you drink a lot of water for a few hours after your procedure. If you have heart or kidney disease, ask your provider how much you should drink. You may be asked to strain your pee to collect any stone pieces that you pass. Your provider may have these pieces tested. Do not take baths, swim, or use a hot tub until your provider approves. Ask your provider if you may take warm baths to soothe the burning. Keep all follow-up visits. If you have a stent, you will need to go back to your provider to have it removed. Your provider may give you more instructions. Make sure you know what you can and cannot do. Contact a health care provider if: You have pain or a burning feeling that lasts for more than 2 days. You feel nauseous. You vomit more and more often. You have trouble peeing. You have pain that gets worse or does not get better with medicine. You have a fever or shaking chills. Get help right away if: You cannot pee, even when your bladder feels full. You faint. You have chest pain, shortness of breath, or cough up blood. You have: ?Bright red blood or blood clots in your pee. ?Severe pain or discomfort. ?Pain in your abdomen. ?Swelling in your legs. These symptoms may be an emergency. Get help right away. Call 911. Do not wait to see if the symptoms will go away. Do not drive yourself to the hospital. This information is not intended to replace advice given to you by your health care provider. Make sure you discuss any questions you have with your health care provider. Document Revised: 03/06/2023 Document Reviewed: 03/06/2023 [employer] Patient Education 2023 [employer]. 05/08/2025 15:13:42 Laser Therapy for Kidney Stones Laser Therapy for Kidney Stones Laser therapy for kidney stones is a procedure to break up rock-like masses that form inside the kidneys (kidney stones). It is done using a device that beams a strong light (laser) on the kidney stones. This breaks the stones up into small pieces. These small pieces may leave your body when you pee (urinate) or may be taken out during the procedure. You may need laser therapy if you have kidney stones that are painful or that are stopping you frombeing able to pee. Tell a health care provider about: Any allergies you have. All medicines you are taking, including vitamins, herbs, eye drops, creams, and ahep-zmg-ackwove medicines. Any problems you or family members have had with anesthesia. Any bleeding problems you have. Any surgeries you have had. Any medical conditions you have. Whether you are or may be . What are the risks? Your health care provider will talk with you about risks. These may include: Infection. Bleeding. Allergic reactions to medicines. Damage to: ?The part of your body that drains pee (urine) from the bladder (urethra). ?The bladder. ?The tube that connects the bladder to the kidneys (ureter). Urinary tract infection (UTI). Urethral stricture. This is when the urethra is narrowed by scarring. Trouble peeing. Blockage of the kidney. This may be caused by a piece of kidney stone. What happens before the procedure? When to stop eating and drinking Follow instructions from your provider about what you may eat and drink. These may include: 8 hours before the procedure ?Stop eating most foods. Do not eat meat, fried foods, or fatty foods. ?Eat only light foods, such as toast or crackers. ?All liquids are okay except energy drinks and alcohol. 6 hours before the procedure ?Stop eating. ?Drink only clear liquids, such as water, clear fruit juice, black coffee, plain tea, and sports drinks. ?Do not drink energy drinks or alcohol. 2 hours before the procedure ?Stop drinking all liquids. ?You may be allowed to take medicines with small sips of water. If you do not follow your provider's instructions, your procedure may be delayed or canceled. Medicines Ask your provider about: ?Changing or stopping your regular medicines. These include any diabetes medicines or blood thinners you take. ?Taking medicines such as aspirin and ibuprofen. These medicines can thin your blood. Do not take them unless your provider tells you to. ?Taking yonj-qqf-oycsjee medicines, vitamins, herbs, and supplements. Tests You may have a physical exam before the procedure. You may also have tests done. These may include: ?Imaging tests. ?Blood or pee tests. Surgery safety Ask your provider: ?How your surgery site will be marked. ?What steps will be taken to help prevent infection. These steps may include: ?Removing hair at the surgery site. ?Washing skin with a soap that kills germs. ?Taking antibiotics. General instructions Do not use any products that contain nicotine or tobacco for at least 4 weeks before the procedure.These products include cigarettes, chewing tobacco, and vaping devices, such as e-cigarettes. If you need help quitting, ask your provider. If you will be going home right after the procedure, plan to have a responsible adult: ?Take you home from the hospital or clinic. You will not be allowed to drive. ?Care for you for the time you are told. What happens during the procedure? An IV will be inserted into one of your veins. You will be given: ?A sedative. This helps you relax. ?Anesthesia. This keeps you from feeling pain. It will make you fall asleep for surgery. A tool with a camera on the end (ureteroscope) will be put into your urethra. It will be moved through your bladder to your kidney. It will send pictures to a screen in the operating room. This will show what parts of your kidney need to be treated. A tube will be put through the ureteroscope. It will be moved into your kidney. The laser device will be put into your kidney through the tube. The laser will be used to break up the kidney stones. A tool with a tiny wire basket may be put through the tube into your kidney. This can help remove the small pieces of the kidney stone. A small mesh tube (stent) may be placed to allow your kidney to drain. The tube and ureteroscope will be taken out at the end of the surgery. The procedure may vary among providers and hospitals. What happens after the procedure? Your blood pressure, heart rate, breathing rate, and blood oxygen level will be monitored until youleave the hospital or clinic. If you had a stent placed, it may have a string that will be secured to your skin. This helps your provider remove the stent. You may be given a strainer to collect any stone pieces that you pass in your pee. Your provider may have these tested. This information is not intended to replace advice given to you by your health care provider. Make sure you discuss any questions you have with your health care provider. Document Revised: 03/06/2023 Document Reviewed: 03/06/2023 Nutshell Patient Education 2023 [employer]. Follow Up Care 04/14/2025 13:58:00 With:SADE MEI, Taras [place], URL Address: [address] [place] [id number] When: Unknown Comments:sched cysto, L URS, laser litho, poss stent placement [facility] 10-20-2025 NoteUrology Office/Clinic Note Chief Complaint Referral for kidney stones HPI Staff Pt is a 44 year old male referred for kidney stones CT done 03/30/25 PSA 0.22 done 04/26/25 Pt. has a H/O kidney stones. Pt. states he passed a kidney stone about 10 years ago. IPSS 8 Pt. denies having incontinence Pt. denies having pain with urination Pt. denies having gross hematuria Pt. denies having abd pain Pt. having lower back pain, Pt. states the pain is on and off. History of Present Illness Tests reviewed: reviewed UA, referral records, CT, PSA I have reviewed the previous health record information and history for this patient from external providers. I have reviewed and verified the staff HPI to be accurate for this encounter. Review of Systems ROS - Provider Constitutional: denies weight loss, denies hot flashes. Eyes: denies eye problems. Gastrointestinal: denies nausea, denies vomiting. Cardiovascular: denies chest pain or angina. Integumentary: no dryness Musculoskeletal: denies musculoskeletal symptoms. ENMT: denies otolaryngeal symptoms. Respiratory: no shortness of breath. Heme/Lymph: denies easy bleeding tendency, denies easy bruising tendency. Psychiatric: no confusion, no anxiety. Genitourinary: See HPI. Physical Exam Vitals & Measurements HR: 81(Peripheral) BP: 107/59 HT: 72 in HT: 184 cm WT: 187.172 lb WT: 84.9 kg BMI: 25.08 General Appearance: alert, no distress, well nourished, well developed male. Assessment/Plan Tahira is a 44 yo M new pt referred for kidney stone. 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 1. Kidney stones (N20.0: Calculus of kidney) CT AP w con 03/30/25 [facility] (ordered d/t unexplained weight loss) - Small bilateral renal hypodensities suggesting cysts. Stones at mid and lower pole of L kidney measuring 12 mm and 13 mm. Hx of kidney stone 10 yrs ago, passed on own. UA neg. Reports lower back pain, across entire back. Discussed this is likely musculoskeletal givenlocation and kidney stones not typically causing pain unless obstructing. Reviewed imaging results.Advised pt stones are too large to pass on own. Discussed surgical intervention options including ESWL if visible on x-ray (less invasive, lower stone free rate) and ureteroscopy/laser litho with possible stent placement (more invasive, higher stone free rate). Risks and benefits of each discussed.Recommended KUB to determine if he is a candidate for ESWL. However pt is interested in URS/laser litho vs ESWL so KUB is not warranted. Discussed metabolic workup to determine the etiology of kidneystone formation, including genetic predisposition, dietary factors, and different metabolism in patients. Recommended pt to complete this after treatment. -Will schedule a Cystoscopy with Left Ureteroscopy, Left Laser Litho, Left Stone Basket, Left possible left stent placement. The procedure risks, benefits, alternatives and complications have been discussed with the patient. These include but are not limited to bleeding, pain, infection, ureteral perforation, extravasation, stricture formation, sepsis, obstruction, inability to reach the stone, inability to fragment the stone, and inability to retrieve all stone fragments. The need for ancillary procedures such as stent placement and removal, retrograde urography, and percutaneous nephrostomywere also discussed. The patient also understood that a ureteral stent may be placed and removal of the stent is critical. Failure to follow up for stent removal can result in recurrent UTIs, encrustation of the stent, loss of kidney function and need for nephrectomy. All of their questions and concerns have been addressed. Full informed consent has been obtained. Will order General anesthesia. -Complete metabolic workup after stone procedure 2. Urinary frequency (R35.0: Frequency of micturition) IPSS 8. Frequency is most bothersome sx. Voiding up to 2x/hr. Started over 1 yr ago. Strong stream.On SSRIs, switched meds ~6 mos ago. Did not notice a difference in urination with this. Will revisit this after stone procedure. 3. Screening PSA (prostate specific antigen) (Z12.5: Encounter for screening for malignant neoplasmof prostate) PSA 04/26/25 - 0.22 -Cont monitoring w/ PCP Follow-up With When Contact Information Taras STUART MD, URL [address] [place] [address] [place] [address] Additional Instructions: sched cysto, L URS, laser litho, poss stent placement Patient Education Ureteral Stent Implantation, Care After Ureteral Stent Implantation Laser Therapy for Kidney Stones, Care After Laser Therapy for Kidney Stones I, Misty Pablo, personally scribed for Dr. Stuart on 05/08/2025 15:19:43. . Documentation recorded by the scribeMisty, accurately reflects the services(s) I performed and decisions made by me. Authenticated by Dr. Stuart on 05/08/2025 15:24:00. Problem List/Past Medical History Ongoing Ataxia B (more content not included)...[facility]: Result Comment: Electronically Signed By: Taras STUART MD\.br\Date and Time Signed: 05/08/25 15:24 EDT\.br\Electronically Co-Signed By: Misty Pablo\.br\Date and Time Co-Signed: 05/08/25 15:22 [id number] NotePatient Education Nephrology Laser Therapy for Kidney Stones, Care After After laser therapy for kidney stones, it is common to have: ??? Pain. ??? A burning feeling when you pee (urinate). ??? Small amounts of blood in your pee (urine). ??? A need to pee a lot. ??? Parts of the kidney stone in your pee. ??? Mild discomfort in your back when you pee. You may have this if you had a small mesh tube (stent) placed during the procedure. Follow these instructions at home: Medicines ??? Take bnvd-vrh-axualey and prescription medicines only as told by your health care provider. ??? If you were prescribed antibiotics, take them as told by your provider. Do not stop using the antibiotic even if you start to feel better. ??? Ask your provider if the medicine prescribed to you: ? Requires you to avoid driving or using machinery. ? Can cause constipation. You may need to take these actions to prevent or treat constipation: ? Drink enough fluid to keep your pee pale yellow. ? Take wyvp-xbk-imkxzep or prescription medicines. ? Eat foods that are high in fiber, such as beans, whole grains, and fresh fruits and vegetables. ? Limit foods that are high in fat and processed sugars, such as fried or sweet foods. Activity ??? If you were given a sedative during the procedure, it can affect you for several hours. Do not drive or operate machinery until your provider says that it is safe. ??? Return to your normal activities as told by your provider. Ask your provider what activities are safe for you. General instructions ??? Your provider may recommend that you drink a lot of water for a few hours after your procedure.If you have heart or kidney disease, ask your provider how much you should drink. ??? You may be asked to strain your pee to collect any stone pieces that you pass. Your provider may have these pieces tested. ??? Do not take baths, swim, or use a hot tub until your provider approves. Ask your provider if you may take warm baths to soothe the burning. ??? Keep all follow-up visits. If you have a stent, you will need to go back to your provider to have it removed. Your provider may give you more instructions. Make sure you know what you can and cannot do. Contact a health care provider if: ??? You have pain or a burning feeling that lasts for more than 2 days. ??? You feel nauseous. ??? You vomit more and more often. ??? You have trouble peeing. ??? You have pain that gets worse or does not get better with medicine. ??? You have a fever or shaking chills. Get help right away if: ??? You cannot pee, even when your bladder feels full. ??? You faint. ??? You have chest pain, shortness of breath, or cough up blood. ??? You have: ? Bright red blood or blood clots in your pee. ? Severe pain or discomfort. ? Pain in your abdomen. ? Swelling in your legs. These symptoms may be an emergency. Get help right away. Call 911. ??? Do not wait to see if the symptoms will go away. ??? Do not drive yourself to the hospital. This information is not intended to replace advice given to you by your health care provider. Make sure you discuss any questions you have with your health care provider. Document Revised: 03/06/2023 Document Reviewed: 03/06/2023 Nutshell Patient Education ? 2023 [employer]. Laser Therapy for Kidney Stones Laser therapy for kidney stones is a procedure to break up rock-like masses that form inside the kidneys (kidney stones). It is done using a device that beams a strong light (laser) on the kidney stones. This breaks the stones up into small pieces. These small pieces may leave your body when you pee (urinate) or may be taken out during the procedure. You may need laser therapy if you have kidney stones that are painful or that are stopping you frombeing able to pee. Tell a health care provider about: ??? Any allergies you have. ??? All medicines you are taking, including vitamins, herbs, eye drops, creams, and rzxu-bbo-ibtvfff medicines. ??? Any problems you or family members have had with anesthesia. ??? Any bleeding problems you have. ??? Any surgeries you have had. ??? Any medical conditions you have. ??? Whether you are or may be . What are the risks? Your health care provider will talk with you about risks. These may include: ??? Infection. ??? Bleeding. ??? Allergic reactions to medicines. ??? Damage to: ? The part of your body that drains pee (urine) from the bladder (urethra). ? The bladder. ? The tube that connects the bladder to the kidneys (ureter). ??? Urinary tract infection (UTI). ??? Urethral stricture. This is when the urethra is narrowed by scarring. ??? Trouble peeing. ??? Blockage of the kidney. This may be caused by a piece of kidney stone. What happens before the procedure? When to stop eating and drinking Follow instructions from your provider about what you may eat and drink. Thes (more content not included)...[facility] NoteHNO ID: [id number] Author: MYRIAM LUIS PT Service: ? Author Type: Physical Therapist Type: Progress Notes Filed: 04/28/2025 12:38 Note Text: 04/28/2025 [facility] PHYSICAL THERAPY DISCONTINUANCE OF CARE Plan of Care Period: Start of Care Date: 02/16/25 Last Visit Date: 02/16/2025 Therapy Program: Patient did not return for follow up care as planned. Please refer to last visit note for interventions provided for this episode of care. Assessment: Unable to formally assess goal achievement. Reason for Discontinuation of Care: Patient has not returned to therapy or scheduled additional follow-up appointments. Myriam Luis, PT, DPTCMemorial [facility] History of Present illness Narrative* ISMAEL Worley - 03/29/2025 8:20 AM EDT Rx for Ingrez[facility] documented in this encounterSouthPointe [id number] History of Present illness Narrative* ISMAEL Worley - 03/29/2025 8:00 AM EDT Images from the original note were not included. HPI: Tahira Agustin is a 44 y.o. male with a history of bipolar affective disorder, MDD, SAMRA, tremors, and tardive dyskinesia. Patient is here today for follow-up via telehealth. Location of patient: Home; located in [place] Location of provider: Office; located in [place], [place] Patient seen via: [employer] [facility]; audio and video utilized Reason for [...] of multiple sclerosis Hx of psychiatric hospitalization [facility] [address] [place] in his [...] since being on the 60 mg of Ingrezza.He is agreeable to increasing to max dose [...] care as described above. documented in this encounterSouthPointe [id number] History of Present illness Narrative* ISMAEL Worley - 02/22/2025 8:00 AM EDT Images from the original note were not [...] a better assessment. [facility] recommended increasing his Ingrezza back to 60 mg and potentiallyup to 80 mg in the future. They also recommended possibly restarting Propranolol if tremors worsen.They would like to avoid any SGAs in the future as these have worsened symptoms, and to consider PT/OT to address functional movement disorder features. He is scheduled to see specialist again in May. He states he did see a physical therapist through them. They gave him education on different thingshe can do at home. 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 He states if he gets this, he will be doing 4 years of swing shift and schooling to get his [employer] card. He states stress has decreased at [...] of multiple sclerosis Hx of psychiatric hospitalization [facility] 1 south in his [...] will continue to follow with specialists at [facility] for additional care of his movements. Patient [...] care as described above. documented in this encounterSouthPointe [id number] NoteHNO ID: [id number] Author: MYRIAM LUIS PT Service: ? 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, 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, 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 [...] UE Strength: Grossly 5/5 Hand Strength R Settlement Technician Position 1 (lbs): 90 lbs R Settlement Technician Position 2 (lbs): 90 lbs L Settlement Technician Position 1 (lbs): 105 lbs L Settlement Technician Position 2 (lbs): 110 lbs LE Strength [...] Education on benefits o (more content not included)...[facility]07-31-2025 History of Present illness Narrative* Myriam Luis, PT - 02/16/2025 7:49 AM EDT Episode Visit Count: 1 Therapist That Will Accept/Oversee The Plan Of Care: Myriam Luis PT, DPT Start of Care Date: 02/16/25 Onset Date: 02/17/24 Patient Identified by Name and Date of : Yes REHABILITATION AND SPORTS THERAPY PHYSICAL THERAPY EVALUATION PLAN OF CARE: Assessment: Tahira Agustin presents with diagnosis of 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 The patient presents with impairments in independence in exercise, overall function, and symptom management. PROMIS (Patient-Reported Outcomes Measurement Information System) scores were reviewed and identified as within normal limits. Prognosis for therapy is Good due to: current objective clinical presentation, good overall health status, within-session changes .Improvements noted in dyskinetic movements and tremor with [...] Planned: 1 Planned Treatment Interventions: Therapeutic exercise (31479), Neuromuscular re- education (60131), Manual therapy (17215), Therapeutic activities (79816), Self- prison management (50716), Gait Training (06716), Patient/Family/Caregiver Education, Body Mechanics Training, Functional training, General Conditioning PLAN FOR NEXT VISIT: Progress diverted attention strategies, weighting, compression, sensory integration Patient demonstrates good understanding of plan of care and treatment. The above goals and plan of care were discussed and agreed upon by patient/family. SUBJECTIVE: Pt reports having tremoring in L hand, tardive dyskinesia through face. Symptoms worsen with stressand overstimulation. Nothing seems to help. No issues with balance. Symptoms typically mild in the morning, worsen as the day goes on. A lot of difficulty with sleeping due to movements. 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 Author Type: Physician Type: Progress Notes Filed: 03/06/2025 22:38 Note Text: [facility] Clinical Health Psychology Evaluation Time of Service: [...] Social History: Mr. Agustin was raised in [place]. He has one half brother who is [...] is recommended that the (more content not included)...[facility]07-30-2025 History of Present illness Narrative* Stevo Garcia PSYD - 02/15/2025 8:05 AM EDT [facility] Clinical Health Psychology Evaluation Time of Service: 8:05 am to 9:00 am CPT Code: psychodiagnostic evaluation Billing Code: Mahesh The patient was informed that this interview was only for the purpose of assessing the presenting problem, for diagnosis and treatment planning and/or to make treatment recommendations. The patient agreed that the evaluation would not be used for forensic, disability, or child custody purposes. Thefollowing history is obtained from the patient except when noted. The content acquired from chart review has been confirmed with the patient and discrepancies were noted if any. Limits of confidentiality were discussed. Identification and Presenting Problem: Mr. Agustin is a 44 year old male who was referred by Dr. 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 He presents with a history of involuntary movement symptoms. Symptom onset: 1 year Most bothersome symptoms: tremor Aggravating factors: stress Alleviating factors: distraction Social History: Mr. Agustin was raised in [place]. He has one half brother who is [...] He describes this relationship to be stable andsupportive. He denies having children. There is no [...] referred by Dr. 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 He presents with a 1 year history of involuntary movement symptoms, including tremor. He reports aggravating factors appearto be stressful circumstances with temporary relief when [...] Stevo Garcia Psy.D. Staff, [facility] documented in this encounterMemorial [facility] System07-[facility]-2025 Telephone encounter Note * Telephone Encounter - Deana Betancourt RN - 02/03/2025 11:54 AM EDT FMD welcome message emailed to patient. [facility]07-18-2025 Miscellaneous Notes* Telephone Encounter - Deana Betancourt RN - 02/03/2025 11:54 AM EDT FMD welcome message emailed to patient. documented in this encounterMemorial Health System07-18-2025 Instructions* Patient Instructions* Olena Gomez MD - 02/03/2025 10:30 AM EDT We discussed your tardive dyskinesia and essential tremor: - Continue taking Ingrezza (valbenazine) at 60 mg daily. This is the dose you were on prior to yourrecent decrease. Your mental health provider will manage [...] worsened your symptoms in the past. Your psychiatryteam will continue managing your mental health with [...] mg, 2 tablets daily) at night, as youhave been doing. Follow-up: - Schedule appointments for physical, and psychotherapy at our facility. Try to arrange all sessions on the same day to reduce travel. - Follow up with us in May for reassessment. If urgent issues arise, contact us via [employer] for guidance or to schedule an earlier [...] of the brain. It s the software, orprogram running on the computer, that isn t [...] working properly in people with FND. However, theres still a lot of research to be done to understand how and why FND happens. What are the treatments for FND? FND symptoms vary from person to person and treatments are individualized. With proper treatments we have seen many patients improve. Rehabilitative therapies designed to retrain the brain can help patients improve their symptoms andoverall function. This includes specialized neurological physical, occupational, [...] other patients diagnosed with FMD, to learn aboutthis condition together. We are optimistic that by working together with you, we will be able to help you improve your symptoms over time. What is my next step? Orders have been placed for you to have additional appointments. Below is a guide for how to schedule these. Physical, Occupational, and/or Speech Therapy Call: [phone] or schedule through a ticket in AtTask. Psychology Therapy Call: [phone], ask to be scheduled with Dr. Shirin Morgan, Dr. Elizabeth Barrera, or Dr. Stevo Garcia. Virtual Shared Medical Appointment for FMD Education Call: [phone] or schedule through a ticket in AtTask Follow-up with Cheyenne Ortiz PA-C, who will help support you through your care. Call: [phone] or schedule through a ticket in AtTask. How can I learn more about FND? www.neurosymptoms.org www.fndhope.org documented in this encounterMemorial Health System07-18-2025 History of Present illness Narrative* Willow Ramos MD - 02/03/2025 9:30 AM EDT [facility] - NEW PATIENT EVALUATION [...] tardive dyskinesia and tremor. He is from [facility] and follows with a local psychiatry team. Chart Review: Per records he is currently on fluoxetine, lamotrigine, propranolol, and valbenazine. He saw his psychiatry [facility] on 01/25/2025 where he asked for a weaning protocol for his ingrezza and propranolol so wewould be better able to appreciate his movements [...] was put on a higher dose of caplyta(lumateperone) which resulted in excessive blinking, twitching, movement [...] note at this visit he observed abnormal rhqccx-jd-ldrq testing indicating ataxia for which MRI brain [...] other drug use. He rarely consumes alcohol anddid not notice any improvement in his tremor [...] Plantar: downgoing Left Plantar: downgoing Coordination Right: Wjpmfr-ri-dmhu normal. Rapid alternating movement normal. Ngqq-jy-xmbf normal.Left: Xckpzq-gl-jhsf normal. Rapid alternating movement normal. Axni-hl-blnq normal. Mild tremulousness in BL hands (L>R) [...] side, and dyskinetic movements of face, body, andlimbs that decrease with cognitive distraction. Clinical picture [...] the patient and discussed the management with . I reviewed their note and agree with [...] Associate Staff Movement disorders [facility] Olena Gomez MD MS Movement Disorder Fellow, PGY-6 [facility] NoteHNO ID: [id number] Author: WILLOW RAMOS MD Service: ? Author [...] tardive dyskinesia and tremor. He is from [facility] and follows with a local psychiatry team. Chart Review: Per records he is currently on fluoxetine, lamotrigine, propranolol, and valbenazine. He saw his psychiatry LAPELER on 01/25/2025 where he asked for a [...] note at this visit he observed abnormal zxwmoj-hj-lhwo testing indicating ataxia for which MRI brain [...] cough Genitourinary: (+) n (more content not included)...[facility] 01-25-2025 History of Present illness Narrative* Kwame Rodríguez, PMHNP-BC - 01/25/2025 8:00 AM EDT Images from the original note were not included. HPI: Tahira Agustin is a 44 y.o. male with a history of bipolar affective disorder, MDD, SAMRA, tremors, and tardive dyskinesia. Patient is here today for follow-up. Patient is accompanied by his , Tabby. Patient was started on Fluoxetine at his last visit on 11/30/24. He states that he feels his mood has improved since last visit. He recently went on vacation with his family to [place], [place]. He states he was able to drive down there and back without any issues or exacerbation of his tremors. He is seeing movement disorder specialist at [facility] on February 03. He is wanting to [...] of multiple sclerosis Hx of psychiatric hospitalization [facility] 1 south in his [...] Father Juve Agustin Vision loss Father Juve Agsutin Diabetes Brother Ari Agustin COPD Other mothers [...] addition of Prozac. He is meeting with [facility] movement disorder specialist on February 03. He is requesting to wean down his Ingrezza and Propranolol doses to see if he can exacerbate symptoms and given specialist better assessment ofwhat is going on. He was given both [...] care as described above. documented in this encounterSouthPointe [id number] History of Present illness Narrative* Georgia Davey NP - 01/24/2025 9:02 AM EDTAssociated Problem(s): Mixed bipolar affective disorder, mild (HCC) Continue with psych * Georgia Davey NP - 01/24/2025 8:58 AM EDTAssociated Problem(s): Tardive dyskinesia Working w psych Also has movement disorder * Georgia Davey NP - 01/24/2025 8:40 AM EDT Images from the original note were not [...] has an appt with movement specialist at [facility] on 02/03/25 SUBJECTIVE: MEDICATIONS: Current Outpatient [...] of multiple sclerosis Hx of psychiatric hospitalization [facility] 1 south in his [...] what foods he eats since no gallbladder * Georgia Davey NP - 01/24/2025 5:56 AM EDTAssociated Problem(s): Weight loss, unintentional Had labs completed no acute abnormals Mid December sent back my chart message about ordering CT , pt did not respond to this Discuss w him today he wants to wait until after seeing movement specialist No bloody stools, occ diarrhea but more related what foods he eats since no gallbladder documented in this encounterSouthPointe [id number] History of Present illness Narrative* Kwame Rodríguez, HNP-BC - 11/30/2024 8:00 AM EDT Images from the original note were not included. HPI: Tahira Agustin is a 43 y.o. male with a history of bipolar affective disorder and tardive dyskinesia. Patient is here today for follow-up. Patient is accompanied by his , Tabby. No medication changes were made at his [...] appointment with a movement disorder specialist at [facility] on February 03. SUBJECTIVE: PAST MEDICAL HISTORY: Past Medical History: Diagnosis Date Arthralgia Asymptomatic microscopic hematuria Bipolar disorder Bursitis of shoulder, right Cyst of tendon sheath Dyspnea 09/08/2023 Family history of multiple sclerosis Hx of psychiatric hospitalization [facility] 1 south in his [...] as Neurologist (Neurology) Armen Hernández LPC as Buyer Intern (Behavioral Health) PSYCHIATRIC REVIEW OF SYMPTOMS AND [...] that a movement disorder specialist is needed forfurther evaluation so they will keep appointment with [facility] that is scheduled in January. We discussed [...] care as described above. documented in this encounterSouthPointe [id number] History of Present illness Narrative* ISMAEL Worley - 11/09/2024 8:00 AM EDT Images from the original note were not included. HPI: Tahira Agustin is a 43 y.o. male with a history of bipolar affective disorder and tardive dyskinesia. Patient is here today for follow-up. At patient's last visit on 10/19/24, his Caplyta was discontinued and Ingrezza was increased to 60 mgdue to increased TD movements. He was also [...] states tremors are not bothering him anymore andfeel that the Propranolol is working well. He is still under a lot of stress at work, which is related to bullying. He states that he recently filed a case with HR because of this and it waiting to hear back from them. He complains of some sweating and feeling hot that began prior to starting Ingrezza and Lamictal. SUBJECTIVE: PAST MEDICAL HISTORY: Past Medical History: Diagnosis Date Arthralgia Asymptomatic microscopic hematuria Bipolar disorder Bursitis of shoulder, right Cyst of tendon sheath Dyspnea 09/08/2023 Family history of multiple sclerosis Hx of psychiatric hospitalization [facility] 1 south in his [...] NP as Referring Physician (Family Medicine) [facility] Practitioner (Behavioral Health) Nadia Swift DO as Neurologist (Neurology) Armen Hernández LPC as Buyer Intern (Behavioral Health) PSYCHIATRIC REVIEW OF SYMPTOMS AND [...] stress at his job. We discussed that itcan take up to 2 months of treatment on Ingrezza in order to see maximum benefit with movements. Heis agreeable to continue medications at current dose due to his improvement. Will consider increasing Lamictal to 100 mg at next visit if he is still experiencing mood symptoms/problems. Assessment/Plan Diagnoses and all orders for this visit: Bipolar 2 disorder (CMS/[facility]) - lamoTRIgine (LaMICtal) 25 MG tablet; Take 2 tablets (50 mg) by mouth Daily SAMRA (generalized anxiety disorder) (CMS/[facility]) Tardive dyskinesia Tremor - propranolol LA (Inderal [...] care as described above. documented in this [facility]04-02-2025 History of Present illness Narrative* ISMAEL Worley - 10/19/2024 8:00 AM EDT Images from the original note were not [...] of multiple sclerosis Hx of psychiatric hospitalization [facility] in his 20s Lumbar back [...] as Neurologist (Neurology) Armen Hernández LPC as Buyer Intern (Behavioral Health) PSYCHIATRIC REVIEW OF SYMPTOMS AND [...] symptoms. He is concerned about these movements andis agreeable to increase his Ingrezza. He was [...] mg by mouth Daily Bipolar 2 disorder (CMS/[facility]) - lamoTRIgine (LaMICtal) 25 MG tablet; Take 1 tablet (25 mg) by mouth Daily for 14 days, THEN 2 tablets (50 mg) Daily for 14 days. SAMRA (generalized anxiety disorder) (CMS/[facility]) Treatment Plan/Recommendations: - Increase Ingrezza to 60 [...] care as described above. documented in this encounterSouthPointe [id number] Telephone encounter Note* Telephone Encounter - ISMAEL Worley - 10/17/2024 10:18 AM EDT Spoke to patient. He stopped Caplyta on Thursday. Reports that side effects have improved a little but still having some. He is agreeable to come in Thursday to follow-up. Informed him to stay off Caplyta until we see him. Patient verbalized understanding. SouthPointe [id number] Miscellaneous Notes* Telephone Encounter - ISMAEL Worley - 10/17/2024 10:18 AM EDT Spoke to patient. He stopped Caplyta on Thursday. Reports that side effects have improved a little but still having some. He is agreeable to come in Thursday to follow-up. Informed him to stay off Caplyta until we see him. Patient verbalized understanding. * Telephone Encounter - Kirsten Mkceon - 10/17/2024 10:01 AM EDT Patient called in stating that after taking his higher dose of Caplyta he started experiencing excessive blinking, body twitches, and high anxiety. Patient stated this started right after taking his increased dose and his symptoms were really bad on 10/13. Patient stated he stopped the medication on 10/14 and is still experiencing symptoms. documented in this encounterSouthPointe [id number] Telephone encounter Note* Telephone Encounter - Kirsten Mckeon - 10/17/2024 10:01 AM EDT Patient called in stating that after taking his higher dose of Caplyta he started experiencing excessive blinking, body twitches, and high anxiety. Patient stated this started right after taking his increased dose and his symptoms were really bad on 10/13. Patient stated he stopped the medication on 10/14 and is still experiencing symptoms. N[facility] [id number] History of Present illness Narrative* Kwame Rodríguez, PMHNP-BC - 09/14/2024 10:30 AM EST Images from the original note were not [...] of multiple sclerosis Hx of psychiatric hospitalization [address] in his 20s Lumbar back pain [...] as Neurologist (Neurology) Armen Hernández LPC as Buyer Intern (Behavioral Health) PSYCHIATRIC REVIEW OF SYMPTOMS AND [...] despite being on a lower dose of Abilify.No safety concerns identified by myself or reported by patient. No evidence of active hypomania/greg today. His movements appear to be a combination of TD and parkinsonism. His TD has improved sincebeing on VMAT2 inhibitor. He reports improvement in his tremors since starting Propranolol. Still having some ongoing anxiety, akathisia, and trouble with sleep. Discussed switching to a medication like Caplyta to help with these symptoms. Educated patient on possible side effects of this medication. Assessment/Plan Diagnoses and all orders for this visit: Bipolar 2 disorder ([facility]) - Lumateperone Tosylate (Caplyta) 10.5 MG capsule; [...] care as described above. documented in this encounterSouthPointe [id number] History of Present illness Narrative* Kwame Rodríguez NP - 08/10/2024 9:30 AM EST Images from the original note were not included. Tahira Agustin is a 43 y.o. male with a history of bipolar affective disorder and tardive dyskinesia who presents for psychiatric medication follow-up. HPI: At patient's last visit on 07/19/24, his Austedo was discontinued and he was started on Ingrezza 40mg. He is taking his medication at night. He feels that his symptoms are the same since last visit.He denies any worsening symptoms. He denies any side effects from the Ingrezza. He feels that his mood is stable on Abilify. He continues to complain of problems with sleep, which is an ongoing issuefor him. He has his first appointment with Armen for counseling on August 22. SUBJECTIVE: PAST MEDICAL HISTORY: Past Medical History: Diagnosis Date Arthralgia Asymptomatic microscopic hematuria Bipolar disorder (CMS/HCC) Bursitis of shoulder, right Cyst of tendon sheath Dyspnea 09/08/2023 Family history of multiple sclerosis Hx of psychiatric hospitalization [facility] 1 south in his [...] to age Memory/Concentration Short term intact and terminal manager intact Insight/Judgement Good OBJECTIVE: Visit Vitals BP [...] despite being on a lower dose of Abilify.No safety concerns identified by myself or reported by patient. No evidence of active hypomania/greg today. His movements appear to be a combination of TD and parkinsonism. His TD has improved sincebeing on VMAT2 inhibitor. He continues to have hand tremors and akathisia. His neurologist has suggested Propranolol for treatment of his tremors. Patient was initially hesitant due to concerns of itpossibly lowering BP. However, after discussion on movement disorders and treatment of each, patient is agreeable to try this. I informed him I will reach out to Jim Wilde, who saw him last and recommended Propranolol, to see what dose she would recommend. Will call patient to update him on dosing of this medication once I receive a response. Patient verbalized understanding. Assessment/Plan Diagnoses and all orders for this visit: Bipolar 2 disorder (CMS/HCC) - ARIPiprazole (Abilify) 10 MG tablet; Take [...] care as described above. documented in this encounterSouthPointe [id number] History of Present illness Narrative* Kwame Rodríguez NP - 07/19/2024 9:30 AM EST Images from the original note were not included. Tahira Agustin is a 43 y.o. male with a history of bipolar affective disorder and tardive dyskinesia who presents for psychiatric medication follow-up. HPI: Patient was seen for initial intake on 06/22/24. At patient's last visit, his Austedo was increasedto 42 mg. He reports taking increased dose every day. He states that he has noticed more problems with hand tremors, feet movements and prolonged eye blinking since the increase in dose. He continuesto reports problems with sleep. He states he [...] of multiple sclerosis Hx of psychiatric hospitalization [facility] 1 south in his 20s Lumbar back [...] to age Memory/Concentration Short term intact and terminal manager intact Insight/Judgement Fair OBJECTIVE: Visit Vitals BP [...] despite being on a lower dose of Abilify.No safety concerns identified by myself or reported by patient. No evidence of active hypomania/greg today. Patient wanting to continue to focus on treating tremors and movements related to SGA use.Educated patient on purpose of VMAT2 inhibitors and expectations in how much improvement he may or may not see with addition of this. He has had increased movements with use of Austedo so will switchto Ingrezza. Discussed how to switch over to new medication. Patient verbalized understanding. Assessment/Plan Diagnoses and all orders for this visit: Bipolar 2 disorder ([facility]) Tardive dyskinesia Treatment Plan/Recommendations: - Stop Austedo [...] care as described above. documented in this encounterSouthPointe [id number] History of Present illness Narrative* Jn Mccullough, DO - 06/29/2024 9:00 AM EST General Surgery H&P Tahira Agustin 1980 Tahira Agustin is a 43 y.o. male presents for Colonoscopy. Denies having a colonoscopy before. Pt denies abdominal pain. Pt admits to rectal bleeding. Pt denies changes in bowel movements. Pt deniesa family history of colon cancer that they [...] for possible internal hemorrhoid banding with all associatedrisks. SUBJECTIVE: MEDICATIONS: ALLERGIES Current Outpatient Medications Medication [...] of multiple sclerosis Hx of psychiatric hospitalization [facility] 1 south in his [...] Oro Hearing loss Maternal Grandmother Brinda Oro Allergies Allergen Reactions Morphine Hives Severe itching [...] risks of procedure which include but not limitedto bleeding, perforation, and risks of anesthesia. Patient [...] you, Kelly Mccullough DO documented in this [facility]12-04-2024 History of Present illness Narrative* Kwame Rodríguez NP - 06/22/2024 8:00 AM EST Images from the original note were not [...] of 2023. He reports improvement in facial movementssince being on Austedo but has not seen improvement in his hand tremors. He feels tremors began 5-6months ago. He states movements are impacting his [...] had brain MRI that was unremarkable. Last notereports suggestions for use of Propranolol to help with tremors. Patient states that he wanted to come to today's visit before considering this medication as he has fears of it causing a lower BP. He states he is transferring care to [facility] because his previous psychiatric provider left and he wants to keep all of his providers in one organization. Developmental History: Patient states he was raised by biological parents up until he was 3-4 yearsold when they . Mother did remarry his step father. He spent most of his time with them andthen would go to his biological father's house on the weekends. He reports a good childhood. Past Psychiatric History: Previous diagnoses: Bipolar disorder Previous psychiatric treatment: States that he has never done therapy. Reports seeing De[facility] prior to her leaving. Reports doing his recent visits mostly by telephoneas they were making dosing adjustments. States he [...] States he was hospitalized in 20s at [facility] and that is when [...] grandmother earlier this year. Education: Graduated from [employer]. Reports being bullied his entire life. 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 Reports marriage is good. Children: None Living situation: Lives with . Reports his nrauln-xs-tfi and niece temporarily moved in with them recently Occupation: Has been working at [employer] for the past 11-12 years. Has been [...] aggression. He states that he used to fight,yell, and threaten others frequently when he was [...] to age Memory/Concentration Short term intact and terminal manager intact Insight/Judgement Good OBJECTIVE: Visit Vitals BP [...] despite being on a lower dose of Abilify.No safety concerns identified by myself or reported [...] symptoms. He has seen benefit with mouth movementsand hand posturing since being on medication. He continues to have some movement in his BLE and BUEduring conversation and with AIMS test. Patient agreeable to increasing Austedo to 42 mg for these movements. Can consider mood stabilizer at future visits and then possibly weaning of Abilify. Informed patient that these future decisions are all based on risks and benefits. Discussed counseling as a part of his treatment plan to help with his previous trauma and grief, aswell as learning coping skills to help with [...] orders for this visit: Bipolar 2 disorder ([facility]) - ARIPiprazole (Abilify) 10 MG tablet; Take [...] the local ER or call Suicide Hotline (190) for any psychosis, suicidal or homicidal ideation, [...] care as described above. documented in this encounterSouthPointe [id number] History of Present illness Narrative* Georgia Davey NP - 06/13/2024 9:06 AM ESTAssociated Problem(s): Rash No improvement in rash with steroid (Rx strength) Will trial lotrisone cream If not better contact office * Georgia Davey NP - 06/13/2024 9:00 AM EST Images from the original note were not [...] member; Diabetes in his brother; Fibromyalgia in another family member; Multiple sclerosis in his father; [...] contact office Relevant Medications clotrimazole-betamethasone (Lotrisone) cream * Georgia Davey NP - 06/13/2024 8:58 AM ESTAssociated Problem(s): Overweight (BMI 25.0-29.9) Recommend exercise * Georgia Davey NP - 06/13/2024 6:17 AM ESTAssociated Problem(s): Encounter for wellness examination in adult Reviewed Ht/Wt/BMI Recommend eye exam yearly Recommend dental exams twice a year Balance work/leisure activities Exercises is recommended most days of the week (appropriate as chronic conditions allow) Follow up yearly and prn * Georgia Davey NP - 06/13/2024 6:16 AM ESTAssociated Problem(s): Bipolar 1 disorder ([facility]) Will have pt continue to follow with Psych provider for management of symptoms * Georgia Davey NP - 06/13/2024 6:15 AM ESTAssociated Problem(s): Tremor, unspecified Had evaluation with neurology , also had MRI I have reviewed the MRI brain w and w/o: normal Reviewed Neurology notes as well documented in this [facility]11-25-2024 Instructions* Patient Instructions* Georgia Davey NP - 06/13/2024 9:00 AM EST Trial lotrisone cream twice a day for 4 weeks, if not better call office documented in this [facility]11-14-2024 History of Present illness Narrative* Jim Wilde NP - 06/02/2024 8:40 AM EST Images from the original note were not [...] more locally. He has been traveling from [place] to [place]. He states that his Abilifywas reduced as an attempt to reduce his [...] Arthralgia Asymptomatic microscopic hematuria Bipolar 1 disorder ([facility]) 09/08/2023 Bursitis of shoulder, right Cyst of [...] , wrist extensors , wrist flexor , concrete swimming pool installer strength 5/5. LUE Strength deltoid , biceps , triceps , wrist extensors , wrist flexor , concrete swimming pool installer strength 5/5. RLE Strength illopsoas, quadriceps, tibialis [...] the brain with and without contrast at [facility] on 05/18/24: Unremarkable brain MRI performed with [...] normal. PLAN: - Referral to psychiatry at [facility] in [place] per patient request - We have discussed [...] plan, and return instructions documented in this encounterSouthPointe [id number] History of Present illness Narrative* Nadia Swift, - 05/05/2024 8:00 AM EDT Images from the original note were not included. Chief Complaint Patient presents with Tremors Subjective Tahira Agustin, 43 y.o., male Patient is here with tremors. 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 He notes this is very noticeable at work along with at home. Patients tremors are in both hands. This started 5 months ago. Patient admits the left hand is worse then the right. Patient notices it with an increase of adrenaline. He notes this happens more withphysical activity. Patient denies this affecting his driving. He states he doesn't notice it while sleeping, but once it starts it doesn't stop till he is asleep. He denies it being there right as hewakes up. He denies trying any medication. He sees a mental health doctor who thought it could have been fromhis Abilify, and was brought down from a [...] Arthralgia Asymptomatic microscopic hematuria Bipolar 1 disorder ([facility]) 09/08/2023 Pt has a hx of bipolar [...] , wrist extensors , wrist flexor , concrete swimming pool installer strength 5/5. LUE Strength deltoid , biceps , triceps , wrist extensors , wrist flexor , concrete swimming pool installer strength 5/5. RLE Strength illopsoas, quadriceps, tibialis [...] my impression that the patient has abnormal aihjcr-lc-sdct testing indicating ataxia. The patient is 43 [...] plan, and return instructions documented in this encounterSouthPointe [id number] History of Present illness Narrative* Georgia Davey NP - 04/19/2024 11:51 AM EDTAssociated Problem(s): Tremor, unspecified Will refer to Neuro Differentials: side effect psych meds, essential tremor, MS, parkinsons, brain lesion, spinal pathology Keep fu appt in late May as well * XENIA WINCHESTER - 04/19/2024 11:00 AM EDT Pt believes his hands has gotten worse over time with shaking, pt states his mental sriram doc had changed his medication doses to see if that was effecting his hands, but no changes with the shakiness after dosage adjustments. Pt states that the shakiness happens with transition of emotions (angry,excited, nervous, ect) Pt states his hands do not wake him when sleeping or shake when driving. Pt declines any burning, itchiness, redness, any other feeling with his hands other than shakiness. * Georgia Davey, JA - 04/19/2024 11:00 AM EDT Images from the original note were not included. Tahira Agustin is a 43 y.o. male presents with chief complaint of No chief complaint on file. HPI: Tremor The tremor affects the hands, arms, left arm, left hand, right arm and right hand. The onset of thetremor was gradual. Current severity of tremor is rated at severe. The tremor occurs intermittently. The tremor is alleviated by nothing.Associated symptoms do not include change in handwriting, difficulty balancing, difficulty starting movement, difficulty walking, drooling while sleeping, postureproblems, rigidity, sleep disturbance, trouble swallowing or voice [...] Arthralgia Asymptomatic microscopic hematuria Bipolar 1 disorder ([facility]) 09/08/2023 Pt has a hx of bipolar [...] member; Diabetes in his brother; Fibromyalgia in another family member; Multiple sclerosis in his father; [...] Ambulatory referral to Neurology documented in this encounterSouthPo[facility] [id number] History of Present illness Narrative* Mikey Wilson, PT - 09/02/2023 1:00 PM EST Physical Therapy Treatment Visit Visit Number: 03/08, [...] to don/doff sling Extracurricular Activities: Golf 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 Good compliance with use of sling Functional Limitations: 28/80 points, 65% impairment Detention Goals: AA/AROM R shoulder to 160 flexion [...] protocol: instructed in pendulum exercises, written instructions provided.AROM elbow wrist and hand. (10 min) Modalities: IFC E-stim + CP to R shoulder (15 min) ASSESSMENT: Pt has participated in 8 outpatient physical therapy sessions post op R RTC repair. Compliance withall protocol guidelines. Pt demos guarding with PROM, [...] below. Physician Signature: Date: documented in this encounterSouthPointe [id number] History of Present illness Narrative* Mikey Wilson, PT - 08/31/2023 10:00 AM EST Physical Therapy Treatment Visit Visit Number: 7, $20 co-pay Time In: 10:00 AM Time [...] right was stronger than left. 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 Good compliance with use of sling Functional Limitations: 28/80 points, 65% impairment [employer] Rep[employer]r Goals: AA/AROM R shoulder to 160 flexion [...] protocol: instructed in pendulum exercises, written instructions provided.AROM elbow wrist and hand. (10 min) Modalities: IFC E-stim + CP to R shoulder (15 min) ASSESSMENT: Pt has participated in 7 outpatient physical therapy sessions post op R RTC repair. Compliance withall protocol guidelines. Pt demos guarding with PROM, [...] below. Physician Signature: Date: [facility] note No data available for this section [facility] evaluation note* Diagnosis Internal derangement of right shoulder- Primary S/P arthroscopy of right shoulder documented in this encounter [facility] HealthcareEvaluation note* Diagnosis Internal derangement of right shoulder- Primary S/P arthroscopy of right shoulder documented in this encounter [facility] HealthcareEvaluation note* Diagnosis Internal derangement of right shoulder- Primary S/P arthroscopy of right shoulder documented in this encounter [facility] HealthcareEvaluation note* Diagnosis Tremor, unspecified- Primary Overweight (BMI 25.0-29.9) Overweight documented in this encounter [facility] HealthcareEvaluation note* Diagnosis Dyspnea, unspecified type- Primary Wheezing Bipolar 1 disorder (CMS/HCC) Overweight (BMI 25.0-29.9) Overweight Dyspnea, unspecified type- Primary Overweight (BMI 25.0-29.9) Overweight Bipolar 1 disorder (CMS/HCC) Dyspnea, unspecified type- Primary Overweight (BMI 25.0-29.9) Overweight Tremor, unspecified- Primary Overweight (BMI 25.0-29.9) Overweight Ataxia- Primary Lack of coordination Tremor, unspecified Tardive dyskinesia Subacute dyskinesia due to drugs documented in this encounter [facility] HealthcareEvaluation note* Diagnosis Dyspnea, unspecified type- Primary Wheezing Bipolar 1 disorder ([facility]/HCC) Overweight (BMI 25.0-29.9) Overweight Dyspnea, unspecified type- Primary Overweight (BMI 25.0-29.9) Overweight Bipolar 1 disorder ([facility]/HCC) Dyspnea, unspecified type- Primary Overweight (BMI 25.0-29.9) Overweight Tremor, unspecified- Primary Overweight (BMI 25.0-29.9) Overweight Tardive dyskinesia- Primary Subacute dyskinesia due to drugs Tremor, unspecified documented in [facility] encounter [facility]* Diagnosis Dyspnea, unspecified type- Primary Wheezing Bipolar 1 disorder ([facility]/HCC) Overweight (BMI 25.0-29.9) Overweight Dyspnea, unspecified type- Primary Overweight (BMI 25.0-29.9) Overweight Bipolar 1 disorder ([facility]/HCC) Dyspnea, unspecified type- Primary Overweight (BMI 25.0-29.9) Overweight Tremor, unspecified- Primary Overweight (BMI 25.0-29.9) Overweight Encounter for wellness examination in adult- Primary Tremor, unspecified Overweight (BMI 25.0-29.9) Overweight Bipolar 1 disorder ([facility]) Rash Rash and other nonspecific skin eruption documented in this encounter [facility]* Diagnosis Dyspnea, unspecified type- Primary Wheezing Bipolar 1 disorder ([facility]/HCC) Overweight (BMI 25.0-29.9) Overweight Dyspnea, unspecified type- Primary Overweight (BMI 25.0-29.9) Overweight Bipolar 1 disorder ([facility]) Dyspnea, unspecified type- Primary Overweight (BMI 25.0-29.9) Overweight Tremor, unspecified- Primary Overweight (BMI 25.0-29.9) Overweight Encounter for wellness examination in adult- Primary Tremor, unspecified Overweight (BMI 25.0-29.9) Overweight Bipolar 1 disorder ([facility]) Rash Rash and other nonspecific skin eruption Rectal bleeding Hemorrhage of rectum and anus Bipolar 2 disorder ([facility]) Other bipolar disorders Tardive dyskinesia Subacute dyskinesia due to drugs documented in this encounter [facility]* Diagnosis Dyspnea, unspecified type- Primary Wheezing Bipolar 1 disorder ([facility]) Overweight (BMI 25.0-29.9) Overweight Dyspnea, unspecified type- Primary Overweight (BMI 25.0-29.9) Overweight Bipolar 1 disorder ([facility]) Dyspnea, unspecified type- Primary Overweight (BMI 25.0-29.9) Overweight Tremor, unspecified- Primary Overweight (BMI 25.0-29.9) Overweight Encounter for wellness examination in adult- Primary Tremor, unspecified Overweight (BMI 25.0-29.9) Overweight Bipolar 1 disorder ([facility]) Rash Rash and other nonspecific skin eruption Rectal bleeding Hemorrhage of rectum and anus Rectal bleeding- Primary Hemorrhage of rectum and anus documented in this encounter [facility] note* Diagnosis Dyspnea, unspecified type- Primary Wheezing Bipolar 1 disorder ([facility]) Overweight (BMI 25.0-29.9) Overweight Dyspnea, unspecified type- Primary Overweight (BMI 25.0-29.9) Overweight Bipolar 1 disorder ([facility]) Dyspnea, unspecified type- Primary Overweight (BMI 25.0-29.9) Overweight Tremor, unspecified- Primary Overweight (BMI 25.0-29.9) Overweight Encounter for wellness examination in adult- Primary Tremor, unspecified Overweight (BMI 25.0-29.9) Overweight Bipolar 1 disorder ([facility]) Rash Rash and other nonspecific skin eruption Rectal bleeding Hemorrhage of rectum and anus Bipolar 2 disorder ([facility]) Other bipolar disorders Tardive dyskinesia Subacute dyskinesia due to drugs documented in this encounter [facility]* Diagnosis Dyspnea, unspecified type- Primary Wheezing Bipolar 1 disorder ([facility]) Overweight (BMI 25.0-29.9) Overweight Dyspnea, unspecified type- Primary Overweight (BMI 25.0-29.9) Overweight Bipolar 1 disorder ([facility]) Dyspnea, unspecified type- Primary Overweight (BMI 25.0-29.9) Overweight Tremor, unspecified- Primary Overweight (BMI 25.0-29.9) Overweight Encounter for wellness examination in adult- Primary Tremor, unspecified Overweight (BMI 25.0-29.9) Overweight Bipolar 1 disorder ([facility]) Rash Rash and other nonspecific skin eruption Rectal bleeding Hemorrhage of rectum and anus Bipolar 2 disorder ([facility]) Other bipolar disorders Tardive dyskinesia Subacute dyskinesia due to drugs documented in this encounter [facility]* Diagnosis Dyspnea, unspecified type- Primary Wheezing Bipolar 1 disorder ([facility]) Overweight (BMI 25.0-29.9) Overweight Dyspnea, unspecified type- Primary Overweight (BMI 25.0-29.9) Overweight Bipolar 1 disorder ([facility]) Dyspnea, unspecified type- Primary Overweight (BMI 25.0-29.9) Overweight Tremor, unspecified- Primary Overweight (BMI 25.0-29.9) Overweight Encounter for wellness examination in adult- Primary Tremor, unspecified Overweight (BMI 25.0-29.9) Overweight Bipolar 1 disorder ([facility]) Rash Rash and other nonspecific skin eruption Rectal bleeding Hemorrhage of rectum and anus Bipolar 2 disorder ([facility]) Other bipolar disorders documented in this encounter [facility]* Diagnosis Dyspnea, unspecified type- Primary Wheezing Bipolar 1 disorder ([facility]) Overweight (BMI 25.0-29.9) Overweight Dyspnea, unspecified type- Primary Overweight (BMI 25.0-29.9) Overweight Bipolar 1 disorder ([facility]) Dyspnea, unspecified type- Primary Overweight (BMI 25.0-29.9) Overweight Tremor, unspecified- Primary Overweight (BMI 25.0-29.9) Overweight Encounter for wellness examination in adult- Primary Tremor, unspecified Overweight (BMI 25.0-29.9) Overweight Bipolar 1 disorder ([facility]) Rash Rash and other nonspecific skin eruption Rectal bleeding Hemorrhage of rectum and anus Bipolar 2 disorder ([facility]) Other bipolar disorders Tardive dyskinesia Subacute dyskinesia due to drugs Tremor Abnormal involuntary movements documented in this encounter [facility]* Diagnosis Dyspnea, unspecified type- Primary Wheezing Bipolar 1 disorder ([facility]) Overweight (BMI 25.0-29.9) Overweight Dyspnea, unspecified type- Primary Overweight (BMI 25.0-29.9) Overweight Bipolar 1 disorder ([facility]) Dyspnea, unspecified type- Primary Overweight (BMI 25.0-29.9) Overweight Tremor, unspecified- Primary Overweight (BMI 25.0-29.9) Overweight Encounter for wellness examination in adult- Primary Tremor, unspecified Overweight (BMI 25.0-29.9) Overweight Bipolar 1 disorder ([facility]) Rash Rash and other nonspecific skin eruption Rectal bleeding Hemorrhage of rectum and anus Tardive dyskinesia Subacute dyskinesia due to drugs Bipolar 2 disorder ([facility]) Other bipolar disorders SAMRA (generalized anxiety disorder) ([facility]) Generalized anxiety disorder documented in this encounter [facility]* Diagnosis Dyspnea, unspecified type- Primary Wheezing Bipolar 1 disorder ([facility]) Overweight (BMI 25.0-29.9) Overweight Dyspnea, unspecified type- Primary Overweight (BMI 25.0-29.9) Overweight Bipolar 1 disorder ([facility]) Dyspnea, unspecified type- Primary Overweight (BMI 25.0-29.9) Overweight Tremor, unspecified- Primary Overweight (BMI 25.0-29.9) Overweight Encounter for wellness examination in adult- Primary Tremor, unspecified Overweight (BMI 25.0-29.9) Overweight Bipolar 1 disorder ([facility]) Rash Rash and other nonspecific skin eruption Rectal bleeding Hemorrhage of rectum and anus Bipolar 2 disorder ([facility]) Other bipolar disorders SAMRA (generalized anxiety disorder) ([facility]) Generalized anxiety disorder Tardive dyskinesia Subacute dyskinesia due to drugs Tremor Abnormal involuntary movements documented in this encounter [facility] HealthcareEvaluation note* Diagnosis Tremor, unspecified- Primary Overweight (BMI 25.0-29.9) Overweight Encounter for wellness examination in adult- Primary Tremor, unspecified Overweight (BMI 25.0-29.9) Overweight Bipolar 1 disorder ([facility]) Rash Rash and other nonspecific skin eruption Rectal bleeding Hemorrhage of rectum and anus Bipolar 2 disorder ([facility]) Other bipolar disorders SAMRA (generalized anxiety disorder) ([facility]) Generalized anxiety disorder Tremor Abnormal involuntary movements Tardive dyskinesia Subacute dyskinesia due to drugs Current episode of major depressive disorder without prior episode, unspecified depression episode severity ([facility]) documented in this encounter [facility] HealthcareEvaluation note* Diagnosis Tremor, unspecified- Primary Overweight (BMI 25.0-29.9) Overweight Encounter for wellness examination in adult- Primary Tremor, unspecified Overweight (BMI 25.0-29.9) Overweight Bipolar 1 disorder ([facility]) Rash Rash and other nonspecific skin eruption Rectal bleeding Hemorrhage of rectum and anus Weight loss, unintentional- Primary Loss of weight Overweight (BMI 25.0-29.9) Overweight Bipolar 2 disorder ([facility]) Other bipolar disorders Tardive dyskinesia Subacute dyskinesia [...] due to drugs documented in this encounter [facility] HealthcareEvaluation note* Diagnosis Tremor, unspecified- Primary Overweight [...] due to drugs documented in this encounter [facility] HealthcareEvaluation note* Diagnosis 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 Dyskinesia, tardive Subacute dyskinesia due to drugs 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 Parkinsonism [facility] Diagnosis 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 Dyskinesia, tardive Subacute dyskinesia due to drugs [facility] Tremor, unspecified- Primary Overweight (BMI [...] Other bipolar disorders documented in this encounter [facility]Evaluation note* Diagnosis Adjustment disorder with mixed anxiety and depressed mood- Primary 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 Dyskinesia, tardive Subacute dyskinesia due to drugs [facility] Diagnosis Tremor, unspecified- Primary Overweight (BMI [...] due to drugs documented in this encounter [facility] HealthcareEvaluation note* Diagnosis Tremor, unspecified- Primary Overweight [...] anxiety disorder documented in this encounter [facility]Progress note No data available for this section [facility] reason for referral (narrative)* Consultation (Routine) - Pending ReviewSpecialtyDiagnoses / ProceduresReferred By ContactReferred To ContactNeurology Diagnoses Tremor, unspecified Procedures NV OFFICE/OUTPATIENT NEW HIGH MDM 60 MINUTES Georgia Davey NP [address] [place] [address] Estefania Sherman NP [address] [place] [address] Ref[facility]Status[facility] DateExpiration DateVisits RequestedVisits [id number] Review Specialty Services Required / [facility]Po[facility] HospitalReason for visit Narrative* Consultation (Routine) - Authorized SpecialtyDiagnoses / ProceduresReferred By ContactReferred To ContactPhysical Therapy Diagnoses S/P arthroscopy of right shoulder Procedures NV OFFICE/OUTPATIENT NEW HIGH MDM 60 MINUTES Gio Nova PA [address] [place] [address] Norah Cardenas, PT [address] [place] [address] Referral IDStatSum[facility] DateExpiration DateVisits RequestedVisits [id number] Consult and Treat / [facility] Healthcare Summary Purpose Family History No Family History Records FoundNo Family History Records FoundNo Family History Records Found No data available for this section No Family History Records Found Advance Directives No Advanced Directives Records FoundNo Advanced Directives Records FoundNo Advanced Directives Records FoundNo Advanced Directives Records Found Additional Source Comments (unrecognized sect ion and content) No Status Records FoundNo Status Records FoundNo Status Records FoundNo Status Records Found INFORMATION SOURCE (unrecogn ized section and content) DATE CREATED AUTHOR 04/26/2022 [facility] DATE CREATED AUTHOR AUTHOR'S ORGANIZ ATION 03/31/2025 [facility] DATE CREATED AUTHOR AUTHOR'S ORGANIZ ATION 04/30/2025 [facility] DATE CREATED AUTHOR AUTHOR'S ORGANIZ ATION 05/09/2025 [facility] Care Teams (unrecognized sec tion and content) Team MemberRelationshipSpecialtyStart DateEnd Date Montrell Serrano MD [address] [place] [address] [facility]/10/23 Georgia Davey NP [address] [place] [address] Nurse Practitionermily Medicine07/20/22 Georgia Davey NP [address] [place] [address] Referring PhysicianFamily Xctestyf05/16/23Team MemberRelationshipSpecialtyStart DateEnd Date Montrell Serrano MD [address] [place] [address] PCP - Generalmily Medicine08/10/23 Georgia Davey NP [address] [place] [address] Nurse PractitionerFamily Medicine07/20/22 Georgia Davey NP [address] [place] [address] Referring Physicianmily Cusubpqy07/16/23Team MemberRelationshipSpecialtyStart DateEnd Date Montrell Serrano MD [address] [place] [address] PCP - Generalmily Medicine08/10/23 Georgia Davey NP [address] [place] [address] Nurse PractitionerBoston [facility] Medicine07/20/22 Georgia Davey NP [address] [place] [address] Referring PhysicianNorth[facility]05/04/23Team MemberRelationshipSpecialtyStart DateEnd Date Montrell Serrano MD [address] [place] [address] PCP - [facility]Mer[facility]ly [facility]08/10/23 Georgia Davey NP [address] [place] [address] Nurse PractitionerBoston [facility] Medicine07/20/22 Georgia Davey NP [address] [place] [address] Referring PhysicianBoston [facility] Center Cdymphiq31/16/23Team MemberRelationshipSpecialtyStart DateEnd Date Montrell Serrano MD [address] [place] [address] PCP - Generalmily Medicine08/10/23 Georgia Davey NP [address] [place] [address] Nurse PractitionerMercyone [facility] Centerly Medicine07/20/22 Georgia Davey NP [address] [place] [address] Referring PhysicianBoston [facility] Mgeuwrsh88/16/23Team MemberRelationshipSpecialtyStart DateEnd Date Montrell Serrano MD [address] [place] [address] PCP - Generalmily Ilsrflyq41/16/231 Montrell Serrano MD [address] [place] [address] PCP - [facility] Medicine08/10/23 Georgia Davey NP [address] [place] [address] Nurse PractitionerBoston [facility] Medicine07/20/22 Georgia Davey NP [address] [place] [address] Referring PhysicianBoston [facility] Medical Center Bseajwpq59/16/23Team MemberRelationshipSpecialtyStart DateEnd Date Montrell Serrano MD [address] [place] [address] PCP - GeneralFamily Medicine08/10/23 Georgia Davey NP [address] [place] [address] Nurse PractitionerMercyone [facility] Centerly Medicine07/20/22 Georgia Davey NP [address] [place] [address] Referring PhysicianBoston [facility] Center Sonvgsia35/16/23Team MemberRelationshipSpecialtyStart DateEnd Date Montrell Serrano MD [address] [place] [address] PCP - [facility] Medicine08/10/23 Georgia Davey NP [address] [place] [address] Nurse PractitionerBoston [facility] Medicine07/20/22 Georgia Davey NP [address] [place] [address] Referring PhysicianBoston [facility] Medical Center Dbnxgabe05/16/23Team MemberRelationshipSpecialtyStart DateEnd Date Montrell Serrano MD [address] [place] [address] PCP - [facility] Medicine08/10/23 Georgia Davey NP [address] [place] [address] Nurse PractitionerBoston [facility] Medicine07/20/22 Georgia Davey NP [address] [place] [address] Referring PhysicianBoston Hope Medical Center Wshlknib32/16/23Team MemberRelationshipSpecialtyStart DateEnd Date Montrell Serrano MD [address] [place] [address] PCP - [facility] Medicine08/10/23 Georgia Davey NP [address] [place] [address] Nurse PractitionerNorth[facility] Center07/20/22 Georgia Davey NP [address] [place] [address] Referring PhysicianNorthridge Medical Center05/04/23Team MemberRelationshipSpecialtyStart DateEnd Date Montrell Serrano MD [address] [place] [address] PCP - [facility] Medicine08/10/23 Georgia Davey NP [address] [place] [address] Nurse PractitionerBoston [facility] Medicine07/20/22 Georgia Davey NP [address] [place] [address] Referring PhysicianBoston Hope Medical Center Sepilpwc21/16/23Team MemberRelationshipSpecialtyStart DateEnd Date Montrell Serrano MD [address] [place] [address] PCP - [facility] Medicine08/10/23 Georgia Davey NP [address] [place] [address] Nurse Practitioner[facility] Medicine07/20/22 Georgia Davey NP [address] [place] [address] Referring PhysicianNorthridge Medical Center05/04/23Team MemberRelationshipSpecialtyStart DateEnd Date Montrell Serrano MD [address] [place] [address] PCP - [facility]08/10/23 Georgia Davey NP [address] [place] [address] Nurse PractitionerNorth[facility] Center07/20/22 Georgia Davey NP [address] [place] [address] Referring PhysicianNorthridge Medical Center05/04/23Team MemberRelationshipSpecialtyStart DateEnd Date Montrell Serrano MD [address] [place] [address] PCP - [facility] Medicine08/10/23 Georgia Davey NP [address] [place] [address] Nurse PractitionerBoston [facility] Medicine07/20/22 Georgia Davey NP [address] [place] [address] Referring PhysicianNorthridge Medical Center05/04/23Te MemberRelationshipSpecialtyStart DateEnd Date Montrell Serrano MD [address] [place] [address] PCP - [facility]08/10/23 Georgia Davey NP [address] [place] [address] Nurse PractitionerNorth[facility] Center07/20/22 Georgia Davey NP [address] [place] [address] Referring PhysicianNorthridge Medical Center05/04/23Te MemberRelationshipSpecialtyStart DateEnd Date Montrell Serrano MD [address] [place] [address] PCP - [facility]08/10/23 Georgia Davey NP [address] [place] [address] Referring Physician[facility]05/04/23 Kwame Rodríguez NP [address] [facility] [place] [place] [address] Nurse PractitionerLehigh Valley Health Network06/22/24 Nadia Siwft DO [address] [phone] TizbwukxgjrWryujsoty86/4/24Team MemberRelationshipSpecialtyStart DateEnd Date Montrell Serrano MD [address] [place] [address] PCP - GeneralFamily Medicine08/10/23 Georgia Davey NP [address] [place] [address] Referring PhysicianBoston [facility] Rtrvacwt44/16/23 Kwame Rodríguez NP [address] [facility] [address] [place] [address] Nurse PractitionerLehigh Valley Health Network06/22/24 Nadia Swift DO [address] [phone] JkrpsncoqtxNqligiovj84/4/24Team MemberRelationshipSpecialtyStart DateEnd Date Montrell Serrano MD [address] [place] [address] PCP - GeneralFami Medicine08/10/23 Georgia Davey NP [address] [place] [address] Referring PhysicianBoston [facility] Medical Center Oxtwnjey37/16/23 Kwame Rodríguez NP [address] [phone] Nurse PractitionerBehavioral Qziwgi73/4/24 Nadia Swift DO [address] [phone] FixsxqqwyssKgxbobzyw77/4/24Team MemberRelationshipSpecialtyStart DateEnd Date Montrell Serrano MD [address] [place] [address] PCP - GeneralFamily Medicine08/10/23 Georgia Davey NP [address] [place] [address] Referring PhysicianFamily Zogekmga12/16/23 Kwame Rodríguez NP [address] [place] [phone] Nurse PractitionerBehavioral Jwdpfd60/4/24 Nadia Swift DO [address] [phone] IdqpjoyhjedUwgbvqkmu59/4/24Te MemberRelationshipSpecialtyStart DateEnd Date Montrell Serrano MD [address] [place] [address] PCP - GeneralFamily Medicine08/10/23 Georgia Davey NP [address] [place] [address] Referring PhysicianFamily Esejoxrh29/16/23 Kwame Rodríguez NP [address] [facility] [address] [place] [address] Nurse PractitionerLehigh Valley Health Network06/22/24 Nadia Swift DO [address] [phone] KghzzonnpjdParwprmib15/4/24Te MemberRelationshipSpecialtyStart DateEnd Date Montrell Serrano MD [address] [place] [address] PCP - GeneralBoston [facility] Medical Center Medicine08/10/23 Georgia Davey NP [address] [place] [address] Referring Physicianmi Qupubvzt57/16/23 Kwame Rodríguez NP [address] [place] [address] Nurse PractitionerLehigh Valley Health Network06/22/24 Nadia Swift DO [address] [address] QqicliqolugFggymsfem04/4/24Te MemberRelationshipSpecialtyStart DateEnd Date Montrell Serrano MD [address] [place] [address] PCP - GeneralBoston [facility] Medical Center Medicine08/10/23 Georgia Davey NP [address] [place] [address] Referring PhysicianFamily Qtcarmum07/16/23 Kwame Rodríguez, JA [address] [facility] [address] [place] [address] Nurse PractitionerBehavioral Cpowcl26/4/24 Nadia Swift DO [address] [phone] ZkmqonaiyeyKneotzryi05/4/24Team MemberRelationshipSpecialtyStart DateEnd Date Montrell Serrano MD [address] [place] [address] PCP - Generalmily Medicine08/10/23 Georgia Davey, JA [address] [place] [address] Referring PhysicianFamily Zosdmqgf09/16/23 Kwame Rodríguez, [facility] [address] [facility] [address] [place] [address] Nurse PractitionerBehavioral Jducay82/4/24 Nadia Swift DO [address] [address] [place] [address] AernxtiojhkRojijabuy48/4/24 Armen Hernández LPC Social Workerhavioral [facility]08/24/24Team MemberRelationshipSpecialtyStart Date End Date Montrell Serrano MD [address] [place] [address] PCP - GeneralFamily Medicine08/10/23 Georgia Davey, JA [address] [place] [address] Referring PhysicianFamily Hkjuokev84/16/23 Kwame Rodríguez [facility] [address] [facility] [address] [place] [address] Nurse Practitionerhavioral Sxcgkg55/4/24 Nadia Swift DO [address] [place] [phone] WzufwzuciqoPqakyqkxt75/4/24 Armen Hernández LPC Social WorkerLehigh Valley Health Network08/24/24Team MemberRelationshipSpecialtyStart Date End Date Montrell Serrano MD [address] [place] [address] PCP - GeneralMercyone Newton Medical Centerly Medicine08/10/23 Georgia Davey NP [address] [place] [address] Referring Physicianmily Nvjifmoo91/16/23 Kwame Rodríguez [facility] [address] [facility] [address] [place] [address] Nurse PractitionerLehigh Valley Health Network06/22/24 Nadia Swift DO [address] [place] [phone] EzocgwcdhllJmfdekrhh10/4/24 Azaelmagdalene Armen [facility] Social Workerhavioral Health08/24/24Team MemberRelationshipSpecialtyStart Date End Date Montrell Serrano MD [address] [place] [address] PCP - GeneralFamily Medicine08/10/23 Georgia Davey, JA [address] [place] [address] Referring PhysicianBoston [facility] Medical Center Nypeyqlq98/16/23 Kwame Rodríguez [facility] [address] [place] [address] [place] [address] Nurse Practitionerhavioral Xlmrqg42/4/24 Nadia Swift DO [address] [phone] SaiyqrqyoimXeskynkdc16/4/24 Eriktamiko Armen [facility] Social WorkerLehigh Valley Health Network08/24/24Team MemberRelationshipSpecialtyStart Date End Date Montrell Serrano MD [address] [place] [address] PCP - Generalmily Medicine08/10/23 Georgia Davey, JA [address] [place] [address] Referring PhysicianBoston [facility] Medical Center Dqxkqrby60/16/23 Kwaem Rodríguez [facility] [address] [facility] [address] [place] [address] Nurse PractitionerBehavioral Iuqtnw98/4/24 Nadia Swift DO [address] [place] [phone] ThplaualzudTejhhamps04/4/24 Armen Hernández LPC Social WorkerBehavioral Health08/24/24Team MemberRelationshipSpecialtyStart Date End Date Montrell Serrano MD [address] [place] [address] PCP - GeneralFamily Medicine08/10/23 Georgia Davey NP [address] [place] [address] Referring Physicianmily Snpyuauk95/16/23 Kwame Rodríguez [facility] [address] [place] [address] [place] [address] Nurse PractitionerBehavioral Eyrczr67/4/24 Nadia Swift DO [address] [place] [phone] SwcdmerjosqHpxatdamw04/4/24 Armen Hernández [facility] Social WorkerBehavioral Health08/24/24Te MemberRelationshipSpecialtyStart Date End Date Montrell Serrano MD [address] [place] [address] PCP - GeneralFamily Medicine08/10/23 Georgia Davey NP [address] [place] [address] Referring PhysicianFamily Auwjuunl25/16/23 [facility] [address] [facility] [address] [place] [address] Nurse PractitionerBehavioral Wkcdhm70/4/24 Nadia Swift DO [address] [phone] SvzhgamdaneVbkfrjvvh08/4/24 Armen Hernández LPC Social WorkerMass[facility] Health08/24/24Team MemberRelationshipSpecialtyStart Date End Date Montrell Serrano MD [address] [place] [address] PCP - GeneralFamily Medicine08/10/23 Georgia Davey, JA [address] [place] [address] Referring PhysicianFamily Pqvnjefa86/16/23 [facility] [address] [facility] [address] [place] [address] Nurse PractitionerBehavioral Fzvfbr62/4/24 Nadia Swift DO [address] [phone] VxgglyajuwgXdzhnoqqc72/4/24Team MemberRelationshipSpecialtyStart DateEnd Date Montrell Serrano MD [address] [place] [address] PCP - Generalmily Medicine08/10/23 Georgia Davey, JA [address] [place] [address] Referring PhysicianNorth[facility]05/04/23 [facility] [address] [facility] [address] [place] [address] Nurse PractitionerLehigh Valley Health Network06/22/24 Nadia Swift DO [address] [place] [phone] XfbakfuosuhXvxvnxxga77/4/24Team MemberRelationshipSpecialtyStart DateEnd Date Montrell Serrano MD [address] [place] [address] PCP - [facility]08/10/23 Georgia Davey, JA [address] [place] [address] Referring PhysicianNorthridge Medical Center05/04/23 [facility] [address] [facility] [address] [place] [address] Nurse PractitionerLehigh Valley Health Network06/22/24 Nadia Swift DO [address] [place] [phone] WytedzdtcrlVcvvtgens09/4/24Team MemberRelationshipSpecialtyStart DateEnd Date Montrell Serrano MD [address] [place] [address] PCP - Generalmily Medicine08/10/23 Georgia Davey NP [address] [place] [address] Referring PhysicianNorth[facility] Medical Center05/04/23 [facility] [address] [facility] [address] [place] [address] Nurse PractitionerLehigh Valley Health Network06/22/24 Nadia Swift DO [address] [place] [phone] XuekmhxipqvNotcsiyhv93/4/24Team MemberRelationshipSpecialtyStart DateEnd Date Montrell Serrano MD PCP - [facility]08/10/23 Georgia Davey NP Referring PhysicianNorthridge Medical Center05/04/23 Kwame Rodríguez [facility] [address] [place] [address] Nurse PractitionerLehigh Valley Health Network06/22/24 Nadia Swift DO [address] [place] [phone] MjtdsnafvpoWxiylazuv67/4/24Team MemberRelationshipSpecialtyStart DateEnd Date Montrell Serrano MD PCP - GeneralFamily Medicine08/10/23 Georgia Davey NP Referring Physicianmily Xocvyuhv41/16/23 [facility] [address] [facility] [address] [place] [address] Nurse PractitionerLehigh Valley Health Network06/22/24 Nadia Swift DO [address] [place] [address] YoebdrqkwcmWtuuusycu19/4/24Team MemberRelationshipSpecialtyStart DateEnd Date Montrell Serrano MD PCP - Generalmily Medicine08/10/23 Georgia Davey NP Nurse PractitionerMercyone Newton Medical Centerly Medicine07/20/2311 Georgia Davey NP Referring PhysicianNorth[facility] Center05/04/23 Kwame Rodríguez, [facility] [address] [facility] [address] [place] [address] Nurse PractitionerLehigh Valley Health Network06/22/24 Nadia Swift DO [address] [place] [phone] ZsuwvprtaroShwwdsesp85/4/24 Armen Hernández LPC Social WorkerBehavioral Health Reason for Visit (unrecogniz ed section and content) ReasonCommentsTremorsSpecialtyDiagnoses / ProceduresReferred By ContactReferred To ContactNeurology Diagnoses Tremor, unspecified Procedures [place] OFFICE/OUTPATIENT [facility] 60 MINUTES Georgia Davey NP [address] [place] [address] Phone: tel: fax: Galindo Sen MD [address] [place] [address] Phone: tel: fax: Referral IDStatusReasonStart DateExpiration DateVisits RequestedVisits [id number] Specialty Services Required [id number] DyskinesiaTremorsReasonComments Psychiatric EvaluationSpecialtyDiagnoses / ProceduresReferred By ContactReferred To ContactBehavioral Health Diagnoses Tardive dyskinesia Tremor, unspecified Procedures [place] OFFICE/OUTPATIENT [facility] Jim Wilde NP [address] [place] [address] Phone: tel: fax: Kwame Rodríguez NP [address] [facility] [address] [place] [address] Phone: tel: fax: Referral IDStatusReasonStart DateExpiration DateVisits RequestedVisits [id number] Specialty Services Required [id number]mEt presents today for a colonoscopy consult. Pt denies/admits to: denies [...] He states he might have internal hemorrhoids. ReasonCommentsMed ManagementFollow-upSpecialtyDiagnoses / ProceduresReferred By ContactReferred To ContactBehavioral Health Diagnoses Counseling Procedures Counseling [facility] [address] [facility] [address] [place] [address] Phone: tel: fax: [facility] [address] [facility] [address] [place] [address] Phone: tel: fax: Referral IDStatusReasonStart DateExpiration DateVisits RequestedVisits [id number]/11/20246/9/[id number]iShzanwtdq Diagnoses / ProceduresReferred By ContactReferred To ContactBehavioral Health Diagnoses Counseling Procedures Counseling [facility] [address] [address] Phone: tel: fax: [facility] [address] [address] Phone: tel: fax: ReasonOnset DateCommentsAdvice Only10/17/2024ReasonCommentsWeight CheckReason CommentsNew PatientMovement Disorder (Tardive Dyskinesia; Tremors)ReasonComments PT EvalSpecialtyDiagnoses / ProceduresReferred By ContactReferred To Contact [facility] Diagnoses Functional movement disorder Dyskinesia, tardive Procedures CONSULT TO PHYSICAL THERAPY PHYSICAL THERAPY EVALUATION HIGH COMPLEX 45 MINS THERAPEUTIC EXERCISES RE, EA 15 MIN. Olena Gomez MD [address] [place] [address] Phone: tel: fax: [facility] [address] [phone] Referral IDStatusReasonStart DateExpiration DateVisits RequestedVisits [id number] Auto-Generated Referral [id number]xgrhjfPcqhdzbnf / Procedures Referred By ContactReferred To ContactPsychology / NEUROLOGICAL WORSHIP Diagnoses Functional movement disorder Dyskinesia, tardive Procedures OFFICE/OUTPATIENT [facility] 60 MINUTES Olena Gomez MD [address] [phone] Phone: tel: fax: [facility] [address] [phone] Phone: tel: Referral IDStatusReasonStart DateExpiration DateVisits RequestedVisits [id number] PCP Requested Referral [id number]-shDzp ManagementBipolarAnxiety Source Comments (unrecognize d section and content) In the event this informatio n is protected by the Federal Confidentiality of Alcohol and Drug Abuse Patient Records regulations: The Federal rules restrict any use of the information to criminally investigate or prosecute any alcohol or drug abuse patient.[facility] Health SystemIn the event this information is protected by the Federal Confidentiality of Alcohol and Drug Abuse Patient Records regulations: The Federal rules restrict any use of the information to criminally investigate or prosecute any alcohol or drug abuse patient.[facility] SystemIn the event this information is protected by the Federal Confidentiality of Alcohol and Drug Abuse Patient Records regulations: The Federal rules restrict any use of the information to criminally investigate or prosecute any alcohol or drug abuse patient.[facility] SystemIn the event this information is protected by the Federal Confidentiality of Alcohol and Drug Abuse Patient Records regulations: The Federal rules restrict any use of the information to criminally investigate or prosecute any alcohol or drug abuse patient.[facility] FOR RECORDS PERTAINING TO PATIENTS WHO ARE [...] BE BASED ON THE PRIMARY CLINICAL RECORDS. [employer] [facility]. provides no warranty or guarantee of the accuracy or completeness of information in this document.
[2025-05-29 14:49] LABS: Hematocrit 42.7 % (42.0-54.0); Hemoglobin 15.0 g/dL (14.0-18.0); Immature Granulocytes Abs Auto 0.02 10^3/uL (0.00-0.03); Immature Granulocytes Pct Auto 0.3 % (0.0-0.5); Lymphocytes Absolute Auto 2.4 10^3/uL (1.2-3.8); Mean Corpuscular HGB Conc 35.1 g/dL (29.9-35.2); Mean Corpuscular Hemoglobin 31.5 pg (25.9-34.0); Mean Corpuscular Volume 89.7 fL (80.0-94.0); Platelet Count 303 10^3/uL (150-450); Red Blood Count 4.76 10^6/uL (4.70-6.10); White Blood Count 7.3 10^3/uL (4.0-11.0)
--- NOTE | 2025-05-29 14:50 | PM.PRESUREVA ---
History of Present Illness History of Present Illness Chief complaint: Left Kidney Stone Narrative: Patient presents for presurgical testing. Please see HPI from Dr. Hernandez dated May 08, 2025. Review of Systems ROS Narrative Please see ROS from Dr. Hernandez dated May 08, 2025. PFSH PFS Medical History (Updated 05/29/25 @ 14:37 by Nicky Melvin NP) Knee pain ?M25.569 - Pain in unspecified knee (ICD-10) Back pain ?M54.9 - Dorsalgia, unspecified (ICD-10) Shoulder pain ?M25.519 - Pain in unspecified shoulder (ICD-10) Ataxia ?R27.0 - Ataxia, unspecified (ICD-10) Tremor ?R25.1 - Tremor, unspecified (ICD-10) Kidney stones ?N20.0 - Calculus of kidney (ICD-10) Tardive dyskinesia ?G24.01 - Drug induced subacute dyskinesia (ICD-10) Bipolar disorder ?F31.9 - Bipolar disorder, unspecified (ICD-10) COVID-19 ?U07.1 - COVID-19 (ICD-10) Seasonal allergies ?J30.2 - Other seasonal allergic rhinitis (ICD-10) Diarrhea ?R19.7 - Diarrhea, unspecified (ICD-10) Surgical History (Updated 05/29/25 @ 14:30 by Nicky Melvin NP) H/O arthroscopy of shoulder ?Z98.890 - Other specified postprocedural states (ICD-10) H/O colonoscopy (07/05/24) ?Z98.890 - Other specified postprocedural states (ICD-10) History of wisdom tooth extraction ?K08.409 - Partial loss of teeth, unspecified cause, unspecified class (ICD-10) History of vasectomy ?Z98.52 - Vasectomy status (ICD-10) History of cholecystectomy ?Z90.49 - Acquired absence of other specified parts of digestive tract (ICD-10) History of repair of rotator cuff ?Z98.890 - Other specified postprocedural states (ICD-10) Family History (Updated 06/30/24 @ 09:14 by Jessika Lea) Other Family history of COPD (chronic obstructive pulmonary disease) Family history of MS (multiple sclerosis) Family history of coronary artery disease Family history of diabetes mellitus Family history of emphysema Family history of heart disease Family history of myocardial infarction Social History (Updated 05/29/25 @ 14:35 by Nicky Melvin NP) Within the past year, how often did you have a drink containing alcohol: never Score interpretation: A score less than 4 is consistent with normal alcohol consumption. 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 Highest level of school completed/degree received: some college, no degree Meds Home Medications and Allergies Home Medications ?Medication ?Instructions ?Recorded ?Confirmed ?Type fluoxetine 20 mg capsule 20 mg PO QPM 05/29/25 05/29/25 History lamotrigine 25 mg tablet 50 mg PO QPM 05/29/25 05/29/25 History valbenazine 80 mg capsule 80 mg PO DAILY 05/29/25 05/29/25 History (Ingrezza) Allergies Allergy/AdvReac Type Severity Reaction Status Date / Time morphine Allergy Mild Hives Verified 05/29/25 14:33 Penicillins Allergy Mild Hives Verified 05/29/25 14:33 Exam Narrative Exam Narrative: Constitutional: Awake, alert, comfortable, well-appearing, nontoxic, interactive, vital signs as charted Head: Normocephalic, atraumatic Neck: Supple, normal appearance, normal range of motion, no meningeal signs, no lymphadenopathy Respiratory: No respiratory distress, breath sounds clear Cardiovascular: Regular rate and rhythm, strong and regular heart tones Abdomen: Nontender, normal bowel sounds, soft, no CVA tenderness Musculoskeletal: Normal gait, no swelling or edema Skin: No rashes or induration, no lesions, only visible skin inspected Neuro: Rhythmic movements of the face, trunk, and extremities Psychiatric: Oriented ?3, normal affect Assessment and Plan Assessment and Plan (1) Kidney stones: Plan Cystoscopy, left retrograde, left ureteroscopy, laser, possible left stent placement scheduled with Dr. Hernandez June 06, 2025.
[2025-05-29 15:15] LABS: INR 1.09; Partial Thromboplastin Time 28.8 sec (22.3-36.2); Prothrombin Time 11.5 sec (9.0-11.6)
[2025-05-29 16:11] LABS: Anion Gap 10.8; Blood Urea Nitrogen 10.0 mg/dL (7.0-18.0); Calcium 8.8 mg/dL (8.5-10.1); Carbon Dioxide 28.1 mmol/L (21.0-32.0); Chloride 105 mmol/L (98-107); Estimated GFR (African America >60 (>=60 mL/min/1.73m^2); Estimated GFR (Non-African Ame >60 (>=60 mL/min/1.73m^2); Glucose 78 mg/dL (74-106); Potassium 3.9 mmol/L (3.5-5.1); Sodium 140 mmol/L (136-145)
== END 2025-05-29 14:21 | disposition home or self-care (01) ==
LOC: PST 14:20
PROVIDERS: PCP Nurse Practitioner; Visit Provider Urology
DX: Z01.812 Encounter for preprocedural laboratory examination (principal); Z01.818 Encounter for other preprocedural examination; N20.0 Calculus of kidney
CPT/HCPCS: 80048; 85025; 85610; 85730; G0463

== ENCOUNTER 2025-06-06 07:03 | Day surgery (SDC) | payer OTHER, SELFPAY ==
[2025-05-29 14:45] VITALS: BP 116/70; PULSE 63; TEMP 36.3; O2SAT 97; BMI 24.1
[2025-06-06] VITALS (11 sets, daily range): BP systolic 103–130; BP diastolic 60–78; PULSE 62–75; TEMP 36.1–36.8; O2SAT 94–100; BMI 24.3
--- OUTSIDE RECORDS SUMMARY | 2025-06-06 07:06 | XMS_ITS | CCD ---
Author Organization [facility] Care Team Providers Care Math Instructor Name Role Phone AICHHOLZ, KICKING MACHINE OPERATOR [place] Admitting Unavailable AICHHOLZ, KICKING MACHINE OPERATOR [place] Attending Unavailable AICHHOLZ, KICKING MACHINE OPERATOR [place] Primary Care Unavailable AICHHOLZ, KICKING MACHINE OPERATOR [place] Consulting Unavailable AICHHOLZ, KICKING MACHINE OPERATOR [place] Admitting Unavailable AICHHOLZ, KICKING MACHINE OPERATOR [place] Attending Unavailable AICHHOLZ, KICKING MACHINE OPERATOR [place] Primary Care Unavailable AICHHOLZ, KICKING MACHINE OPERATOR [place] Consulting Unavailable AICHHOLZ, KICKING MACHINE OPERATOR [place] Admitting Unavailable AICHHOLZ, KICKING MACHINE OPERATOR [place] Attending Unavailable AICHHOLZ, KICKING MACHINE OPERATOR [place] Primary Care Unavailable DR LISSETH SANTOS V Consulting Unavailable AICHHOLZ, KICKING MACHINE OPERATOR [place] Consulting Unavailable AICHHOLZ, KICKING MACHINE OPERATOR [place] Admitting Unavailable AICHHOLZ, KICKING MACHINE OPERATOR [place] Attending Unavailable AICHHOLZ, KICKING MACHINE OPERATOR [place] Primary Care Unavailable Aichholz TUTOR, [place] Unavailable Aichholz TUTOR, [place] Unavailable Zach MEI, Montrell Primary Care Provider [phone] Zach MEI, Montrell Primary Care Provider [phone] Aichholz TUTOR, [place] Unavailable Kwame Rodríguez NP Unavailable Nadia Swift DO Unavailable Marcos [facility] Unavailable Armen Hernández LPC Unavailable Unavailable Unavailable Primary Care Provider Unavailabl e Aichholz TUTOR, [place] Unavailable Montrell Serrano MD Primary Care Provider KWAME RODRÍGUEZ Attending Unavailable ARMEN HERNÁNDEZ Attending Unavailable RODRÍGUEZ, KWAEM Referring Unavailable RODRÍGUEZ, KWAME Attending Unavailable RODRÍGUEZ, [...] Attending Unavailable Taras STUART Attending Unavailable Aiczeferino TUTOR, [place] Unavailable Armen Hernández LPC Unavailable Unavailable Allergies Allergy ClassificationReported Allergen(s)Allergy TypeDate of OnsetReaction(s) Facility (4 sources)Morphine; Translations: [MORPHINE]Drug Mmpxibf45-92-2091Gyu [facility] Repository (4 sources)Penicillin; Translations: [penicillin]Drug Tvrqkew38-41-9785Upyxqlsi of skin (disorder)[facility] Repository (20 sources)Morphine; Translations: [morphine]Drug Kohrvix90-65-2745Zkvhe, Unknown, Weal (disorder)[facility] (20 sources)Penicillins; Translations: [PENICILLINS]Drug Ccycvuv13-05-8208Unfr [facility] (4 sources)PenicillinsDrug Ecgbibd97-84-0081JxblShuqsdulv Clinic Medications Current Medications MedicationDrug Class(es)DatesSig (Normalized)Sig (Original)ARIPiprazole 10 mg oral tablet (20 sources)Atypical AntipsychoticStart: 04-17-2024 End: 45-18-5252hoho 1 tablet by mouth once dailyARIPiprazole (Abilify) 10 MG tablet Indications: Bipolar 2 disorder (CMS/HCC) Take 1 tablet (10 mg)by mouth Daily 30 tablet 2 08/10/2024 09/14/2024 Discontinued (Ineffective)Start: 11-17-2023 End: 84-71-0361usmg 1 tablet by mouth once dailyARIPiprazole (Abilify) 15 MG tablet Take 15 mg by mouth Daily 11/17/2023 04/19/2024 Discontinued (Therapy completed)take 1 tablet by mouth in the morningARIPiprazole (Abilify) 30 MG tablet Take 1 tablet by mouth in the morning. 0 Activebetamethasone 0.5 mg/ml / clotrimazole 10 mg/ml topical cream (8 sources)Azole Antifungal, CorticosteroidStart: 06-13-2024 End: 32-44-9041ahzumixygbld-betamethasone (Lotrisone) cream Indications: Rash Apply topically 2 (two) times a day for 28 days 45 g 06/13/2024 07/11/2024 Activebisacodyl 5 mg delayed release oral tablet (2 sources)Stimulant LaxativeStart: 06-29-2024 End: 17-51-6880uzeo 1 tablet by mouth oncebisacodyl (Dulcolax) 5 MG EC tablet Indications: Rectal bleeding Take 1 tablet (5 mg) by mouth 1 time for 1 dose Do not crush, chew, or split. Take as detailed on clinic hand out for colonoscopy prep4 tablet 06/29/2024 06/29/2024 Activechlorhexidine gluconate 1.2 mg/ml mouthwash (3 sources)Start: 12-04-2023 End: 39-53-5620yyst 15 mL by mouth twice dailychlorhexidine (Peridex) 0.12 % solution SWISH AND SPIT 15 MLS BY MOUTH TWICE A DAY - START 24 HOURSAFTER SURGERY 12/04/2023 04/19/2024 Discontinued (Therapy completed)deutetrabenazine 9 mg oral tablet (15 sources) End: 14-99-5394kcgeyeavgbxoerxq (Austedo) 9 MG tablet 24mg and 12mg 05/05/2024 Discontinued (Therapy completed)deutetrabenazine (Austedo) 9 MG tablet 2 tablets 0 ActiveFLUoxetine 20 mg oral capsule (20 sources)Serotonin Reuptake InhibitorStart: 06-64-4051SVButkjuba 20 mg Cap 20 mg = 1 cap(s) Start Date: 05/08/25 Status: Ordered Repeat number: 1Start: 11-30-2024 End: 92-84-0108huqr 1 capsule by mouth once dailyFLUoxetine (PROzac) 20 MG capsule Indications: SAMRA (generalized anxiety disorder) , Tardive dyskinesia Take 1 capsule (20 mg) by mouth Daily 30 capsule 5 03/29/2025 04/28/2025 Active lamoTRIgine 25 mg oral tablet (20 sources)Mood Stabilizer, Anti-epileptic AgentStart: 74-82-7701yholdmziqbq 25 mg Tab 25 mg = 1 tab(s) Start Date: 05/08/25 Status: Ordered Repeat number: 1 Start: 11-09-2024 End: 20-44-5365ysbt 2 tablets by mouth once dailylamoTRIgine (LaMICtal) 25 MG tablet Indications: Bipolar 2 disorder (HCC) , Tardive dyskinesia Take2 tablets (50 mg) by mouth Daily 60 tablet 5 03/29/2025 04/28/2025 ActiveStart: 10-19-2024 End: 27-68-1424hswc 1 tablet by mouth once daily, then [...] release oral tablet (3 sources)alpha-Adrenergic Agonist End: 83-48-7484cxjy 10-240 mg by mouth every twenty-four hoursloratadine- pseudoephedrine ER (Claritin-D 24-hour) 10-240 MG 24 hr tablet Take 1 tablet by mouth Daily Do not crush, chew, or split. 04/19/2024 Discontinued (Therapy completed)Lumateperone Tosylate (Caplyta) 10.5 MG capsule (2 sources)Start: 09-14-2024 End: 93-62-9549crvw 1 capsule by mouth once dailyLumateperone Tosylate (Caplyta) 10.5 MG capsule Indications: Bipolar 2 disorder (CMS/HCC) Take 10.5mg by mouth Daily 30 capsule 09/14/2024 10/14/2024 ActiveLumateperone Tosylate (Caplyta) 21 MG capsule (4 sources)Start: 10-05-2024 End: 01-91-2357aayn 1 capsule by mouth at mealtimeLumateperone Tosylate (Caplyta) 21 MG capsule Indications: Bipolar 2 disorder (CMS/HCC) Take 21 mg by mouth in the evening. Take with meals 30 capsule 10/05/2024 10/19/2024 Discontinued (Side effects)Start: 10-05-2024 End: 75-85-0137pwmq 1 capsule by mouth at mealtimeLumateperone Tosylate (Caplyta) 21 MG capsule Indications: Bipolar 2 disorder (CMS/HCC) Take 21 mg by mouth in the evening. Take with meals 30 capsule 10/05/2024 11/04/2024 Active montelukast 10 mg oral tablet (3 sources)Leukotriene Receptor Antagonist End: 18-08-0586ynup 1 tablet by mouth at bedtimemontelukast (Singulair) 10 MG tablet Take 10 mg by mouth at bedtime 04/19/2024 Discontinued (Therapy completed)naproxen 500 mg oral tablet (1 source)Nonsteroidal Anti-inflammatory Drugtake 1 tablet by mouth in the morningnaproxen (Naprosyn) 500 MG tablet Take 1 tablet by mouth in the morning and 1 tablet in the evening. Take with meals. 0 Activepolyethylene glycol 3350 77255 mg powder for oral solution (2 sources)Osmotic LaxativeStart: 06-29-2024 End: 11-72-0841otjs 17 g by mouth oncepolyethylene glycol, PEG, 3350 (Glycolax) 17 GM/SCOOP powder Indications: Colonoscopy Take 238 g bymouth 1 (one) time for 1 dose Take as detailed from clinic hand out for colonoscopy prep 238 g 06/2906/29/2024 Ndgavp60 hr propranolol hydrochloride 60 mg extended release oral capsule (20 sources)beta-Adrenergic BlockerStart: 08-15-2024 End: 11-75-7621slkg 1 capsule by mouth once dailypropranolol LA (Inderal LA) 60 MG 24 hr capsule Indications: Tremor Take 1 capsule (60 mg) by mouthDaily Do not crush, chew, or split. 90 capsule 11/30/2024 02/22/2025 Discontinued (Therapy completed)valbenazine 80 mg oral capsule (20 sources)Start: 75-80-2750pdro 1 capsule by mouth once dailyIngrezza 80 mg oral capsule 80 mg = 1 cap(s), Oral, Daily Start Date: 05/08/25 Status: Ordered Repeat number: 1Start: 03-29-2025 End: 17-79-9769wgiv 1 capsule by mouth once dailyvalbenazine tosylate (Ingrezza) 80 MG capsule Indications: Bipolar 2 disorder (HCC) , SAMRA (generalized anxiety disorder) Take 1 capsule (80 mg) by mouth Daily 30 capsule 1 03/29/2025 03/29/2025 Discontinued (Reorder)Start: 01-25-2025 End: 94-26-5841emeuhqkjnoo (INGREZZA) 40 mg capsule Take 40 mg by mouth. 01/25/2025 ActiveStart: 07-19-2024 End: 21-42-9252ulyo 1 capsule by mouth once dailyvalbenazine tosylate (Ingrezza) 40 MG capsule Indications: Tardive dyskinesia Take 1 capsule (40 mg) by mouth Daily 30 capsule 07/19/2024 10/19/2024 Discontinued (Dose adjustment)Valbenazine Tosylate (Ingrezza) 60 MG capsule (19 sources)Start: 02-22-2025 End: 49-35-6042xkff 1 capsule by mouth once daily in the morningValbenazine Tosylate (Ingrezza) 60 MG capsule Indications: Tardive dyskinesia Take 1 capsule by mouth Daily in the Morning 90 capsule 3 02/22/2025 03/29/2025 Discontinued (Dose adjustment)Start: 02-22-2025 End: 90-41-5505nshi 1 capsule by mouth once daily in the morningValbenazine Tosylate (Ingrezza) 60 MG capsule Indications: Tardive dyskinesia Take 1 capsule by mouth Daily in the Morning 90 capsule 3 02/22/2025 05/23/2025 ActiveStart: 11-30-2024 End: 29-86-2270ojzv 1 capsule by mouth once dailyValbenazine Tosylate (Ingrezza) 60 MG capsule Indications: Tardive dyskinesia Take 1 capsule by mouth Daily 30 capsule 10 11/30/2024 01/25/2025 DiscontinuedStart: 84-58-2009sibg 1 capsule by mouth once dailyValbenazine Tosylate (Ingrezza) 60 MG capsule Indications: Tardive dyskinesia Take 1 capsule by mouth Daily 30 capsule 10 11/30/2024 Active Start: 11-30-2024 End: 79-33-4747awpr 1 capsule by mouth once dailyValbenazine Tosylate (Ingrezza) 60 MG capsule Indications: Tardive dyskinesia Take 1 capsule by mouth Daily 30 capsule 10 11/30/2024 12/30/2024 ActiveStart: 11-02-2024 End: 80-59-0581cdxf 1 capsule by mouth once dailyValbenazine Tosylate (Ingrezza) 60 MG capsule Indications: Tardive dyskinesia Take 1 capsule by mouth Daily 30 capsule 10 11/02/2024 11/30/2024 Discontinued (Reorder)Start: 11-02-2024 End: 41-81-3827hspc 1 capsule by mouth once dailyValbenazine Tosylate (Ingrezza) 60 MG capsule Indications: Tardive dyskinesia Take 1 capsule by mouth Daily 30 capsule 10 11/02/2024 12/02/2024 ActiveStart: 10-19-2024 End: 54-62-9575llui 1 capsule by mouth once dailyValbenazine Tosylate (Ingrezza) 60 MG capsule Indications: Tardive dyskinesia Take 60 mg by mouth Daily 30 capsule 1 10/19/2024 11/18/2024 Active Completed/Discontinued Medications MedicationDrug Class(es)DatesSig (Normalized)Sig (Original)Deutetrabenazine ER (Austedo XR) 12 MG tablet sustained-release 24 hour (11 sources) End: 97-14-7566xfhu 1 tablet by mouth once daily, then [...] tablet sustained-release 24 hour (11 sources) End: 80-52-6792gonb 1 tablet by mouth once daily, then [...] sustained-release 24 hour (8 sources)Start: 06-22-2024 End: 70-01-2878wrgf 1 tablet by mouth once daily, then take 1 tablet by mouth every twenty-four hoursDeutetrabenazine ER (Austedo XR) 42 MG tablet sustained- release 24 hour Indications: Tardive dyskinesia Take 42 mg by mouth Daily 30 tablet 11 06/22/2024 07/19/2024 Discontinued (Side effects)Start: 06-22-2024 End: 86-47-9457eflp 1 tablet by mouth once daily, then [...] disorder with mixed anxiety and depressed mood] 97-96-7884ZxnzwxxRgmtgqs disorders (20 sources)Generalized anxiety disorder; Translations: [Generalized anxiety disorder]Onset: 011703-29-0257XqtqlytQlqibxtk of urinary tract (2 sources)Kidney stone; Translations: [Calculus of kidney]Onset: 05-08-2025 EpisodicDisorders of teeth and jaw (1 source)Loss of teeth due to odntleljog53-62-1468XlgdrlkJvts disorders (20 sources)Bipolar I disorder; Translations: [Bipolar disorder, unspecified] Onset: 09-08-2023 Resolved: 764411-60-6691LcysvlwFevyy gastrointestinal disorders (1 source)Vesyunpk57-44-7964CijrqvqcVqxhv hereditary and degenerative nervous system conditions (9 sources)Functional movement disorder; Translations: [Extrapyramidal and movement disorder, unspecified]86-39-5641CsrtyfeLwfwi hereditary and degenerative nervous system conditions (1 source)Extrapyramidal and movement disorder, unspecified; Translations: [Functional movement disorder]Onset: 37-07-6582FarfoxqStaar hereditary and degenerative nervous system conditions (1 source)Drug induced subacute dyskinesia; Translations: [Dyskinesia, tardive] Onset: 05-45-3657VazytdryFkgdu nervous system disorders (2 sources)Parkinsonism due to drug; Translations: [Other drug induced secondary parkinsonism]63-48-3932LpitizePplip nervous system disorders (1 source)Other drug induced secondary parkinsonism; 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)]Onset: 71-07-1329ZarmefaUlxhm nervous system disorders (5 sources)Ataxia; Translations: [Ataxia, unspecified]51-47-9081KzedfhjbPucoo non-traumatic joint disorders (20 sources)Derangement of right shoulder joint; Translations: [Other specific joint derangements of right shoulder, not elsewhere classified]Onset: 06-10-2023 16-67-9523StnkcihAqgaa screening for suspected conditions (not mental disorders or infectious disease) (1 source)Encounter for screening for malignant neoplasm of prostate; Translations: [Screening for malignant neoplasm done]Onset: 81-28-8623Bqczsrut Other upper respiratory disease (1 source)Seasonal wdoavvo96-36-8823AplhwzyYcydhxsusbov (1 source)Patient encounter onqnqs15-99-0773 Past or Other Problems Problem ClassificationProblemDateDocumented DateEpisodic/ChronicCardiac dysrhythmias (4 sources)Palpitations; Translations: [PALPITATIONS]Onset: 63-37-4374Ypdvojhc Gastrointestinal hemorrhage (20 sources)Rectal hemorrhage; Translations: [Hemorrhage of anus and rectum] Onset: 06-13-2024 Resolved: 287377-23-9480IdorvqmqDaznwctuvvcze symptoms and ill-defined conditions (17 sources)Polyuria; Translations: [Polyuria]Onset: EpisodicMood disorders (20 sources)Mood disordersOnset: 09-14-2024 Resolved: Other hereditary and degenerative nervous system conditions (20 sources)Tardive dyskinesia; Translations: [Drug induced subacute dyskinesia] Onset: 524670-53-8925GvjeizlmYcnnw lower respiratory disease (1 source)Dyspnea, unspecified; Translations: [DYSPNEA UNSPECIFIED]Onset: 38-90-0633TjkrrxdoJbtzy lower respiratory disease (20 sources)Dyspnea; Translations: [Dyspnea, unspecified]Onset: 09-08-2023 Resolved: 427313-98-2799XzqeviebJiemi lower respiratory disease (20 sources)Wheezing; Translations: [Wheezing]Onset: 09-08-2023 Resolved: 937409-09-0768KxvdznbsZnrkr nervous system disorders (20 sources)Tremor; Translations: [Tremor, unspecified]Onset: 04-19-2024 73-67-2435RywwftivLocqx non-traumatic joint disorders (15 sources)Joint stiffness; Translations: [Stiffness of unspecified joint, not elsewhere classified]Onset: 889136-02-3273ErstxjwoYmlpt nutritional; endocrine; and metabolic disorders (20 sources)Body mass index 25-29 - overweight; Translations: [Overweight]Onset: 735484-64-9931CnbrkiusRgkrb nutritional; endocrine; and metabolic disorders (16 sources)Unintentional weight loss; Translations: [Abnormal weight loss] Onset: 540196-17-1939KihmtyzwLbdcm skin disorders (20 sources)Eruption; Translations: [Rash and other nonspecific skin eruption] Onset: 06-13-2024 Resolved: 112822-92-2272IahoanfxVpcqo skin disorders (15 sources)Excessive sweating; Translations: [Generalized hyperhidrosis]Onset: 326481-54-0095RlwidonlMxfvomee codes; unclassified (20 sources)History of arthroscopic procedure on shoulder; Translations: [Other specified postprocedural states]Onset: 752744-24-2756Livgtxxh Results Test NameValueInterpretationReference RangeFacilityAmbulatory Visit Summaryon 05-01-0249Zypqqeziih Visit SummaryAmbulatory Visit Summary TAHIRA AGUSTIN :1980 Visit Date:05/08/2025 Ambulatory Visit Instructions Your Diagnosis Kidney stones Urinary frequency Screening PSA (prostate specific antigen) Your Care Team Attending Physician - Taras STUART MD Primary Care Physician - GEROGIA DAVEY CNP This Is Your Medications List [...] the Following Appointments Follow Up with SADE EMI, [place], [place] When: Comments: sched cysto, L URS, laser litho, poss stent placement Where: [address] [place] [address] Medications What How Much When Instructions Unchanged [...] these instructions at home: Medicines ??? Take oyly-had-uayttmy and prescription medicines only as told by [...] to prevent or treat constipation: ? Take ezmz-lhq-utlbtru or prescription medicines. ? Eat foods that [...] that contain nicoti (more content not included)...[facility] 17-01-9654LVMXUKEONSG/PT/Speech Visit (PHYTMN) TAHIRA AGUSTIN ([id number]) 1980 M Date Time Provider Department 02/16/25 7:45 AM MYRIAM LUIS Date Time Provider Department Center 02/16/2025 7:45 AM [id number] LUIS Reason for Visit: PT Discharge [752] [...] 25 mg tablet Take 50 mg by mouth.NormalMercy Health West HospitalOV 14-89-5631OIAUDksvhf Visit (NREUS2) TAHIRA AGUSTIN ([id number]) 1980 M Date Time Provider Department 02/15/25 8:00 AM STEVO GARCIA NREUS2 During your visit today, we recorded the following information about you: Stevo Garcia PSYD 03/06/2025 10:38 PM Signed The [facility] Psychology Evaluation Time of Service: 8:05 am [...] Social History: Mr. Agustin was raised in [place]. He has one half brother who is [...] psychotropic medication at the (more content not included)...NormalMercy Health West HospitalOVon 95-37-4692LLJBRuadzh Visit (NREUS2) TAHIRA AGUSTIN ([id number]) 1980 M Date Time Provider Department 02/03/25 [...] tardive dyskinesia and tremor. He is from [facility] and follows with a local psychiatry team. Chart Review: Per records he is currently on fluoxetine, lamotrigine, propranolol, and valbenazine. He saw his psychiatry TUTOR on 01/25/2025 where he asked for a [...] note at this visit he observed abnormal pstvwg-tg-mtle testing indicating ataxia for which MRI brain [...] Valbenazine Bneztropine Questionnaires Revi (more content not included)...NormalCleveland Clinic Marymount HospitalI HEAD/BRAIN WO/W CONTRon 19-88-3778[place]xfPort [place] [address] Magnetic Resonance Report Signed Patient: TAHIRA AGUSTIN MR#: [id number] : 1980 Acct:[id number] Age/Sex: 43 / M ADM Date: 05/18/24 Loc: MRI Attending Dr: Nadia Swift D.O. Ordering Physician: Nadia Swift D.O. Date of Service: 05/18/24 Procedure(s): MR head/brain wo/w con Accession Number(s): [id number] cc: [place] Davey TUTOR; Nadia Swift D.O. [place] [address] Patient Name: TAHIRA AGUSTIN MRN: [id number] date: 1980 Sex: M Assigned Patient Location: MRI Current Patient Location: MRI Accession/Order Number: [id number] Exam Date: 05/18/2024 08:00 Report Date: 05/18/2024 [...] M.D. Signed By: 05/18/241422 DD/ 19 TD/TT: Green Building Design Specialist:TBHRadiology, Radiologist, MD - 05/18/2024 [place] [address] Magnetic Resonance Report Signed Patient: TAHIRA AGUSTIN MR#: [id number] : 1980 Acct:[id number] Age/Sex: 43 / M ADM Date: 05/18/24 Loc: MRI Attending Dr: Nadia Swift D.O. Ordering Physician: Nadia Swift D.O. Date of Service: 05/18/24 Procedure(s): MR head/brain wo/w con Accession Number(s): [id number] cc: [place] Davey NP; Nadia Swift D.O. [place] [address] Patient Name: TAHIRA AGUSTIN MRN: [id number] date: 1980 Sex: M Assigned Patient Location: MRI Current Patient Location: MRI Accession/Order Number: [id number] Exam Date: 05/18/2024 08:00 Report Date: 05/18/2024 [...] M.D. Signed By: 05/18/241422 DD/ 19 TD/TT: Green Building Design Specialist: AUGUSTIN HealthcareRadiology Study observation (narrative)[facility] HospitalI HEAD/BRAIN WO/W CONTROrdered By: Radiologist Radiology on 91-55-7891EQFR Healthcare Work Phone: rt PULMONARY FUNCTION TESTon 72-47-8728GklPort [place] [address] Respiratory Report Signed Patient: TAHIRA AGUSTIN MR#: [id number] : 1980 Acct:[id number] Age/Sex: 42 / M ADM Date: 09/18/23 Loc: CARD Attending Dr: Georgia Davey NP Ordering Physician: Georgia Davey NP Date of Service: 09/18/23 Procedure(s): RT pulmonary function test Accession Number(s): [id number] cc: [facility] Test Date: 2023-09-18 Pat Name: TAHIRA AGUSTIN Department: Room: - Gender: Male Silk Snapper: Milton Cline RRT : 1980 Requested By: GE[place] DAVEY Order Number: [id number] Ania MD: Neftaly Alba Interpretive Statements Pulmonary [...] D.O. Signed By: 09/23/23706 DD/ 6 TD/TT: Green Building Design Specialist:TBHRadiology, Radiologist, - 09/23/2023 [place] [address] Respiratory Report Signed Patient: TAHIRA AGUSTIN MR#: [id number] : 1980 Acct:[id number] Age/Sex: 42 / M ADM Date: 09/18/23 Loc: CARD Attending Dr: [place] Davey NP Ordering Physician: Georgia Davey NP Date of Service: 09/18/23 Procedure(s): RT pulmonary function test Accession Number(s): [id number] cc: [facility] Test Date: 2023-09-18 Pat Name: TAHIRA AGUSTIN Department: Room: - Gender: Male Silk Snapper: Milton Cline RRT : 1980 Requested By: GE[place]IA DAVEY Order Number: [id number] Reading MD: Neftaly Alba Interpretive Statements Pulmonary [...] D.O. Signed By: 09/23/23706 DD/ 6 TD/TT: Green Building Design Specialist: AUGUSTIN ClearApp PULMONARY FUNCTION TESTOrdered By: Radiologist Radiology on 07-92-2716SLLI [facility] Work Phone: RT PULMONARY FUNCTION TESTon 50-86-2172Kogkmoecy Study observation (narrative)[facility] ClearAppXR CHEST 2Von 88-96-8461FboPort [place] [address] XRay Report Signed Patient: TAHIRA AGUSTIN MR#: [id number] : 1980 Acct:[id number] Age/Sex: 42 / M ADM Date: 09/18/23 Loc: CARD Attending Dr: [place] Davey NP Ordering Physician: Georgia Davey NP Date of Service: 09/18/23 Procedure(s): XR chest 2V Accession Number(s): [id number] cc: [place] Davey NP [place] [id number] Patient Name: TAHIRA AGUSTIN MRN: [id number] date: 1980 Sex: M Assigned Patient Location: CARD Current Patient Location: CARD Accession/Order Number: [id number] Exam Date: 09/18/2023 10:17 Report Date: 09/18/2023 [...] Signed By: 09/18/23 1051 DD/ 1048 TD/TT: Green Building Design Specialist:TBHRadiology, Radiologist, - 09/18/2023 [place] [address] XRay Report Signed Patient: TAHIRA AGUSTIN MR#: [id number] : 1980 Acct:[id number] Age/Sex: 42 / M ADM Date: 09/18/23 Loc: CARD Attending Dr: Georgia Davey NP Ordering Physician: Georgia Davey NP Date of Service: 09/18/23 Procedure(s): XR chest 2V Accession Number(s): [id number] cc: Georgia Davey NP [place] [id number] Patient Name: TAHIRA AGUSTIN MRN: [id number] date: 1980 Sex: M Assigned Patient Location: CARD Current Patient Location: CARD Accession/Order Number: [id number] Exam Date: 09/18/2023 10:17 Report Date: 09/18/2023 [...] Signed By: 09/18/23 1051 DD/ 1048 TD/TT: Green Building Design Specialist: AUGUSTIN HealthcareRadiology Study observation (narrative)[facility] HealthcareXR CHEST 2V Ordered By: Radiologist Radiology on 25-41-9598IDBKCedar County Memorial Hospital Work Phone: cbc AUTO DIFFon 75-21-6712HPER #0.1 103/ulNormal 0.0-0.1[facility] HospitalComment on above:Performed By: #### CBC #### [facility] [address] [place] [address] [address] Lazara MottBasophils/100 WBC (Bld)1.4 %Normal0.2-2.0[facility] Comment on above:Performed By: #### CBC #### [facility] [address] [place] [address] Dr. Lazara Wilks #0.3 103/ulNormal0.0-0.7The [facility] HospitalComment on above: Performed By: #### CBC #### [facility] [address] [place] [address] [address] Lazara Quanosinophils/100 WBC (Bld)3.1 %Normal0.9-7.0[facility] Comment on above:Performed By: #### CBC #### [facility] [address] [place] [address] Dr. Lazara Quanrythrocyte distribution width (RBC) [Ratio]12.2 %Hvveey52.0-15.0 [facility] HospitalComment on above:Performed By: #### CBC #### [facility] [address] [place] [address] Dr. Lazara MottHematocrit (Bld) [Volume fraction]45.0 %Qgbbis35.0-54.0[facility] HospitalComment on above:Performed By: #### CBC #### [facility] [address] [place] [address] Dr. Lazara MottHemoglobin (Bld) [Mass/Vol]15.2 g/uXGuxief96.0-18.0The [facility] HospitalComment on above:Performed By: #### CBC #### [facility] [address] [address] [address] Lazara Valdes #0.06 10e3/ulCritically high0.00-0.03The [facility] Comment on above:Performed By: #### CBC #### [facility] [address] [place] [address] Dr. Lazara Valdes %0.7 %Critically high0.0-0.5The [facility] HospitalComment on above:Performed By: #### CBC #### [facility] [address] [place] [address] Dr. Lazara Live #2.5 103/ulNormal1.2-3.8The [facility] HospitalComment on above:Performed By: #### CBC #### [facility] [address] [place] [address] Dr. Lazara Sheppardhocytes/100 WBC (Bld)31.5 %Ptftyn46.5-60.0The [facility] HospitalComment on above:Performed By: #### CBC #### [facility] [address] [place] [address] Dr. Lazara KingUAL DIFF REQNONormalThe [facility] HospitalComment on above: Performed By: #### CBC #### [facility] [address] [place] [address] Dr. Lazara Pichardo (RBC) [Entitic mass]30.6 geSuxtwp01.9-34.0The [facility] HospitalComment on above:Performed By: #### CBC #### [facility] [address] [place] [address] Dr. Lazara Pichardo (RBC) [Mass/Vol]33.8 g/kZUzoiod58.9-35.2The [facility] HospitalComment on above:Performed By: #### CBC #### [facility] [address] [place] [address] Dr. Lazara Pichardo (RBC) [Entitic vol]90.7 fQJirynb79.0-94.0The [facility] HospitalComment on above:Performed By: #### CBC #### [facility] [address] [address] [address] Lazara Colmenares #0.7 103/ulNormal0.3-0.8The [facility] HospitalComment on above:Performed By: #### CBC #### [facility] [address] [place] [address] Dr. Lazara Christiansenocytes/100 WBC (Bld)8.7 %Normal1.7-12.0The [facility] Comment on above:Performed By: #### CBC #### [facility] [address] [place] [address] Dr. Lazara Keating #4.4 103/ulNormal1.4-6.5The [facility] HospitalComment on above:Performed By: #### CBC #### [facility] [address] [place] [address] Dr. Lazara Ferrerutrophils/100 WBC (Bld)54.6 %Achkhj53.0-75.0The [facility] HospitalComment on above:Performed By: #### CBC #### [facility] [address] [place] [address] Dr. Lazara Lai mean volume (Bld) [Entitic vol]9.9 fLNormal9.5-13.5The [facility] HospitalComment on above:Performed By: #### CBC #### [facility] [address] [place] [address] Dr. Lazara MottPLT297 103/dkOqsglt607-717Xwr [facility] HospitalComment on above: Performed By: #### CBC #### [facility] [address] [place] [address] Dr. Lazara MottRBC4.96 106/ulNormal4.70-6.10The [facility] HospitalComment on above:Performed By: #### CBC #### [facility] [address] [place] [address] Dr. Lazara MottWBC8.0 103/ulNormal4.0-11.0The [facility] HospitalComment on above: Performed By: #### CBC #### [facility] [address] [address] [address] Lazara VerasID PROFILEon [id number]-HDL RATIO NORMSKettering Health MiamisburgComment on above:Result Comment: 3.3 - 4.4 LOW RISK 4.4 - 7.1 AVERAGE RISK 7.1 - 11.0 MODERATE RISK >11.0 HIGH RISKPerformed By: #### TSH, LIPID, CMP #### [facility] [address] [address] [address] Lazara MottCholesterol [Mass/Vol]145 mg/dLNormal<=200[facility] Comment on above:Performed By: #### TSH, LIPID, CMP #### [facility] [address] [address] [address] Lazara MottCholesterol in HDL [Mass/Vol]43 mg/zPTcgzee81-64QtjMartin Memorial HospitalComment on above:Performed By: #### TSH, LIPID, CMP #### [facility] [address] [address] [address] Lazara MottCholesterol in LDL [Mass/Vol]62.0 mg/dLOhioHealth Grant Medical CenterComment on above:Performed By: #### TSH, LIPID, CMP #### [facility] [address] [address] [address] Lazara Andersonesterambrosio.total/Cholesterol in HDL [Mass ratio]3.4 {ratio} NormalMartin Memorial HospitalComment on above:Performed By: #### TSH, LIPID, CMP #### [facility] [address] [address] [address] Lazara MottHDL NORMAL> or = 60 mg/dl - LOW CARDIOVASCULAR RISK <40 mg/dl - HIGH CARDIOVASCULAR RISKOhioHealth Grant Medical CenterComment on above:Performed By: #### TSH, LIPID, CMP #### [facility] [address] [address] [address] Lazara MottLDL CALC NORMALSEE [facility] HospitalComment on above:Result Comment: <100 mg/dl OPTIMAL 100 - 129 mg/dl NEAR OR ABOVE OPTIMAL 130 - 159 mg/dl BORDERLINE HIGH 160 - 189 mg/dl HIGH >190 mg/dl VERY HIGH Performed By: #### TSH, LIPID, CMP #### [facility] [address] [address] [address] Lazara MottTriglyceride [Mass/Vol]200 mg/dLCritically high<=150The [facility] Hospitalment on above:Performed By: #### TSH, LIPID, CMP #### [facility] [address] [address] [address] Lazara MottVLDL CALC40.0 mg/dLNormalThe [facility] HospitalComment on above: Performed By: #### TSH, LIPID, CMP #### [facility] [address] [place] [address] Dr. Lazara Sylvester 14(COMP METB)on [id number] [Mass/Vol]4.0 g/dLNormal 3.4-5.0The [facility] HospitalComment on above:Performed By: #### TSH, LIPID, CMP #### [facility] [address] [place] [address] Dr. Lazara MottAlbumin/Globulin [Mass ratio]1.2 {ratio}NormalThe [facility]Health Berger Hospitalment on above:Performed By: #### TSH, LIPID, CMP #### [facility] [address] [place] [address] Dr. Lazara Irving [Catalytic activity/Vol]80 U/FUtlcdc49-101Mor [facility] on above:Performed By: #### TSH, LIPID, CMP #### [facility] [address] [address] [address] Lazara Savage [Catalytic activity/Vol]67 U/LCritically blbd77-61Kpz [facility] on above:Performed By: #### TSH, LIPID, CMP #### [facility] [address] [address] [address] Lazara Acosta gap [Moles/Vol]13.9 mmol/LNormalThe [facility] Comment on above:Performed By: #### TSH, LIPID, CMP #### [facility] [address] [address] [address] Lazara MottAST [Catalytic activity/Vol]26 U/XOuyvkm47-87Sug [facility] HospitalComment on above:Performed By: #### TSH, LIPID, CMP #### [facility] [address] [address] [address] Lazara MottBilirubin [Mass/Vol]0.6 mg/dLNormal0.2-1.0[facility] Comment on above:Performed By: #### TSH, LIPID, CMP #### [facility] [address] [address] [address] Lazara MottCalcium [Mass/Vol]8.9 mg/dLNormal8.5-10.1The [facility] Comment on above:Performed By: #### TSH, LIPID, CMP #### [facility] [address] [place] [address] Dr. Lazara MottChloride [Moles/Vol]102 mmol/HFxwpyu36-150Baj [facility] Comment on above:Performed By: #### TSH, LIPID, CMP #### [facility] [address] [address] [address] Lazara MottCO2 [Moles/Vol]24.9 mmol/NTfzgbg45.0-32.0The [facility] Comment on above:Performed By: #### TSH, LIPID, CMP #### [facility] [address] [address] [address] Lazara MottCreatinine [Mass/Vol]1.13 mg/dLNormal0.70-1.30The [facility] HospitalComment on above:Performed By: #### TSH, LIPID, CMP #### [facility] [address] [place] [address] Dr. Lazara QuanGFR-AF CHILEAN>60Normal>=60The [facility] HospitalComment on above:Performed By: #### TSH, LIPID, CMP #### [facility] [address] [address] [address] Lazara QuanGFR-NON AF CHILEAN>60Normal>=60The [facility] HospitalComment on above:Performed By: #### TSH, LIPID, CMP #### [facility] [address] [address] [address] Lazara MottGlobulin (S) [Mass/Vol]3.3 g/dLNormSt. Charles HospitalComment on above:Performed By: #### TSH, LIPID, CMP #### [facility] [address] [address] [address] Lazara MottGlucose [Mass/Vol]87 mg/cUPbsxtc46-053YdzMartin Memorial Hospital Comment on above:Performed By: #### TSH, LIPID, CMP #### [facility] [address] [place] [address] Dr. Lazara MottPotassium [Moles/Vol]3.8 mmol/LNormal3.5-5.1[facility] Comment on above:Performed By: #### TSH, LIPID, CMP #### [facility] [address] [place] [address] Dr. Lazara MottProtein [Mass/Vol]7.3 g/dLNormal6.4-8.2[facility] Comment on above:Performed By: #### TSH, LIPID, CMP #### [facility] [address] [place] [address] Dr. Lazara MottSodium [Moles/Vol]137 mmol/IFelfeq020-913RctMartin Memorial Hospital Comment on above:Performed By: #### TSH, LIPID, CMP #### [facility] [address] [place] [address] Dr. Lazara MottUrea nitrogen [Mass/Vol]9.0 mg/dLNormal7.0-18.0[facility] HospitalComment on above:Performed By: #### TSH, LIPID, CMP #### [facility] [address] [place] [address] Dr. Lazara MottUrea nitrogen/Creatinine [Mass ratio]8.0 mg/mgNormSt. Charles HospitalComment on above:Performed By: #### TSH, LIPID, CMP #### [facility] [address] [place] [address] Dr. Lazara Kruse 24-28-3161UUN5.148 uIU/mLNormal0.358-3.740The [facility] HospitalComment on above:Performed By: #### TSH, LIPID, CMP #### [facility] [address] [address] [address] Lazara [place] RANDOM W/MICROSCOPICon [id number] CRYSTALSMODERATE NormalThe [facility] HospitalComment on above:Performed By: #### UAMIC #### [facility] [address] [address] [address] Lazara MottBACTERIANONE SEENNormalNONE SEENThe [facility] HospitalComment on above:Performed By: #### UAMIC #### [facility] [address] [address] [address] Lazara Rivera Ql (U)NegativeNormalNEGATIVEThe [facility] Comment on above:Performed By: #### UAMIC #### [facility] [address] [address] [address] Lazara MottCASTNONE SEENNormalNONE SEENMartin Memorial HospitalComment on above:Performed By: #### UAMIC #### [facility] [address] [address] [address] Lazara Andrade (U)SL CLOUDYAbnormalCLEARThe [facility] HospitalComment on above:Performed By: #### UAMIC #### [facility] [address] [address] [address] Lazara Weston (U)LT. YELLOWNormalYELLOWMartin Memorial HospitalComment on above:Performed By: #### UAMIC #### [facility] [address] [address] [address] Lazara Young LM Nom (Urine sed)SEENAbnormalNONE SEENThe [facility] HospitalComment on above:Performed By: #### UAMIC #### [facility] [address] [address] [address] Haile ChangEpithelial cells LM Ql (Urine sed)NONE SEENNormalNONE SEEN /RARE The [facility] HospitalComment on above:Performed By: #### UAMIC #### [facility] [address] [address] [address] Lazara MottGlucose Ql (U)NegativeNormalNEGATIVEMartin Memorial HospitalComment on above:Performed By: #### UAMIC #### [facility] [address] [address] [address] Lazara MottHemoglobin Ql (U)NegativeNormalNEGATIVEParkview Health on above:Performed By: #### UAMIC #### [facility] [address] [address] [address] Lazara MottKetones Ql (U)NegativeNormalNEGATIVEMartin Memorial HospitalComment on above:Performed By: #### UAMIC #### [facility] [address] [place] [address] Dr. Lazara MottLEUKOCYTESNegativeNormalNEGATIVEMartin Memorial HospitalComment on above:Performed By: #### UAMIC #### [facility] [address] [address] [address] Lazara MottMUCOUSNONE SEENNormalNONE SEENMartin Memorial HospitalComment on above:Performed By: #### UAMIC #### [facility] [address] [place] [address] Dr. Lazara MottNitrite Ql (U)NegativeNormalNEGATIVEMartin Memorial HospitalComment on above:Performed By: #### UAMIC #### [facility] [address] [address] [address] Lazara MottpH (U)8.5 [pH]Normal5-9The [facility] HospitalComment on above: Performed By: #### UAMIC #### [facility] [address] [place] [address] Dr. Lazara MottUroybWVI7-4Bwriwd2-6Ufw [facility] HospitalComment on above:Performed By: #### UAMIC #### [facility] [address] [address] [address] Lazara MottSPEC GRAVITY1.937Ufzbsr7.005-<=1.025The [facility] HospitalComment on above:Performed By: #### UAMIC #### [facility] [address] [place] [address] Dr. Lazara [place] PROTEINNegativeNormalNEGATIVE/ TRACEThe [facility] Comment on above:Performed By: #### UAMIC #### [facility] [address] [place] [address] Dr. Lazara Mcknightbilantonina Qn (U)0.2 {Anum'U}/dLNormal0.2 - 1.0The [facility] HospitalComment on above:Performed By: #### UAMIC #### [facility] [address] [place] [address] Dr. Lazara StricklandBC0-2AbnormalNONE SEENMartin Memorial HospitalComment on above: Performed By: #### UAMIC #### [facility] [address] [place] [address] Dr. Lazara Alex AUTO DIFFon [id number] #0.1 103/ulNormal0.0-0.1[facility] HospitalComment on above:Performed By: #### CMP, TSH, LIPID, FT3 #### [facility] [address] [place] [address] Dr. Lazara MottBasophils/100 WBC (Bld)1.1 %Normal0.2-2.0[facility] Comment on above:Performed By: #### CMP, TSH, LIPID, FT3 #### [facility] [address] [place] [address] Dr. Lazara Wilks #0.2 103/ulNormal0.0-0.7The [facility] HospitalComment on above: Performed By: #### CMP, TSH, LIPID, FT3 #### [facility] [address] [place] [address] Dr. Lazara Quanosinophils/100 WBC (Bld)2.3 %Normal0.9-7.0[facility] Comment on above:Performed By: #### CMP, TSH, LIPID, FT3 #### [facility] [address] [place] [address] Dr. Lazara uQanrythrocyte distribution width (RBC) [Ratio]12.1 %Kvdmql16.0-15.0 The [facility] HospitalComment on above:Performed By: #### CMP, TSH, LIPID, FT3 #### [facility] [address] [place] [address] Dr. Lazara MottHematocrit (Bld) [Volume fraction]42.4 %Moonxi18.0-54.0The [facility] HospitalComment on above:Performed By: #### CMP, TSH, LIPID, FT3 #### [facility] [address] [place] [address] Dr. Lazara MottHemoglobin (Bld) [Mass/Vol]14.5 g/vRXcijgl74.0-18.0The [facility] HospitalComment on above:Performed By: #### CMP, TSH, LIPID, FT3 #### [facility] [address] [place] [address] Dr. Lazara Valdes #0.04 10e3/ulCritically high0.00-0.03The [facility] Comment on above:Performed By: #### CMP, TSH, LIPID, FT3 #### [facility] [address] [place] [address] Dr. Lazara Valdes %0.5 %Normal0.0-0.5The [facility] HospitalComment on above: Performed By: #### CMP, TSH, LIPID, FT3 #### [facility] [address] [place] [address] Dr. Lazara Live #2.5 103/ulNormal1.2-3.8The [facility] HospitalComment on above:Performed By: #### CMP, TSH, LIPID, FT3 #### [facility] [address] [place] [address] Dr. Lazara Mayermphocytes/100 WBC (Bld)31.3 %Bodcvh16.5-60.0The [facility] HospitalComment on above:Performed By: #### CMP, TSH, LIPID, FT3 #### [facility] [address] [place] [address] Dr. Lazara KingUAL DIFF REQNONormalThe [facility] HospitalComment on above: Performed By: #### CMP, TSH, LIPID, FT3 #### [facility] [address] [place] [address] Dr. Lazara Pichardo (RBC) [Entitic mass]30.7 nzBukrev59.9-34.0The [facility] HospitalComment on above:Performed By: #### CMP, TSH, LIPID, FT3 #### [facility] [address] [place] [address] Dr. Lazara Pichardo (RBC) [Mass/Vol]34.2 g/vBIhazqs19.9-35.2The [facility] HospitalComment on above:Performed By: #### CMP, TSH, LIPID, FT3 #### [facility] [address] [place] [address] Dr. Lazara Pichardo (RBC) [Entitic vol]89.6 oDDczyhu54.0-94.0The [facility] HospitalComment on above:Performed By: #### CMP, TSH, LIPID, FT3 #### [facility] [address] [place] [address] Dr. Lazara Colmenares #0.8 103/ulNormal0.3-0.8The [facility] HospitalComment on above:Performed By: #### CMP, TSH, LIPID, FT3 #### [facility] [address] [place] [address] Dr. Lazara Christiansenocytes/100 WBC (Bld)10.2 %Normal1.7-12.0The [facility] Comment on above:Performed By: #### CMP, TSH, LIPID, FT3 #### [facility] [address] [place] [address] Dr. Lazara Keating #4.3 103/ulNormal1.4-6.5The [facility] HospitalComment on above:Performed By: #### CMP, TSH, LIPID, FT3 #### [facility] [address] [address] [address] Lazara Ferrerutrophils/100 WBC (Bld)54.6 %Bnnssj86.0-75.0The [facility] Hospitalment on above:Performed By: #### CMP, TSH, LIPID, FT3 #### [facility] [address] [place] [address] Dr. Lazara Lai mean volume (Bld) [Entitic vol]9.3 fLCritically low 9.5-13.5The [facility] Hospitalment on above:Performed By: #### CMP, TSH, LIPID, FT3 #### [facility] [address] [place] [address] Dr. Lazara MottPLT294 103/dnOtnmtx579-928Uvc [facility] on above: Performed By: #### CMP, TSH, LIPID, FT3 #### [facility] [address] [place] [address] Dr. Lazara MottRBC4.73 106/ulNormal4.70-6.10The [facility] on above:Performed By: #### CMP, TSH, LIPID, FT3 #### [facility] [address] [place] [address] Dr. Lazara MottWBC7.9 103/ulNormal4.0-11.0The [facility] on above: Performed By: #### CMP, TSH, LIPID, FT3 #### [facility] [address] [place] [address] Dr. Lazara Cervantes T3on 97-88-4251XOAG T33.42 pg/mlLNormal2.77-5.27The [facility] on above:Performed By: #### CMP, TSH, LIPID, FT3 #### [facility] [address] [place] [address] Dr. Lazara Cervantes T4on 71-82-8613Acxr T4 [Mass/Vol]0.95 ng/dLNormal0.78-2.19 The [facility] Hospitalment on above:Performed By: #### CMP, TSH, LIPID, FT3 #### [facility] [address] [address] [address] Lazara MottLIPID PROFILEon [id number]-HDL RATIO NORMSKettering Health MiamisburgComment on above:Result Comment: 3.3 - 4.4 LOW RISK 4.4 - 7.1 AVERAGE RISK 7.1 - 11.0 MODERATE RISK >11.0 HIGH RISKPerformed By: #### CMP, TSH, LIPID, FT3 #### [facility] [address] [address] [address] Lazara MottCholesterol [Mass/Vol]159 mg/dLNormal<=200[facility] Comment on above:Performed By: #### CMP, TSH, LIPID, FT3 #### [facility] [address] [place] [address] Dr. Lazara MottCholesterol in HDL [Mass/Vol]41 mg/dLOhioHealth Grant Medical Center Comment on above:Performed By: #### CMP, TSH, LIPID, FT3 #### [facility] [address] [place] [address] Dr. Lazara MottCholesterol in LDL [Mass/Vol]94.0 mg/dLOhioHealth Grant Medical CenterComment on above:Performed By: #### CMP, TSH, LIPID, FT3 #### [facility] [address] [place] [address] Dr. Lazara Andersonesterambrosio.total/Cholesterol in HDL [Mass ratio]3.9 {ratio} NormalMartin Memorial HospitalComment on above:Performed By: #### CMP, TSH, LIPID, FT3 #### [facility] [address] [place] [address] Dr. Lazara MottHDMary NORMAL> or = 60 mg/dl - LOW CARDIOVASCULAR RISK <40 mg/dl - HIGH CARDIOVASCULAR RISKOhioHealth Grant Medical CenterComkalamazoo psychiatric hospital on above:Performed By: #### CMP, TSH, LIPID, FT3 #### [facility] [address] [place] [address] Dr. Lazara MottLDL CALC NORMALSEE [facility] HospitalComment on above:Result Comment: <100 mg/dl OPTIMAL 100 - 129 mg/dl NEAR OR ABOVE OPTIMAL 130 - 159 mg/dl BORDERLINE HIGH 160 - 189 mg/dl HIGH >190 mg/dl VERY HIGH Performed By: #### CMP, TSH, LIPID, FT3 #### [facility] [address] [place] [address] Dr. Lazara MottTriglyceride [Mass/Vol]120 mg/dLNormal<=150The [facility] Comment on above:Performed By: #### CMP, TSH, LIPID, FT3 #### [facility] [address] [place] [address] Dr. Lazara MottVLDL CALC24.0 mg/dLNormalThe [facility] HospitalComment on above: Performed By: #### CMP, TSH, LIPID, FT3 #### [facility] [address] [place] [address] Dr. Lazara Sylvester 14(COMP METB)on [id number] [Mass/Vol]4.1 g/dLNormal 3.5-5.0The [facility] HospitalComment on above:Performed By: #### CMP, TSH, LIPID, FT3 #### [facility] [address] [place] [address] Dr. Lazara MottAlbumin/Globulin [Mass ratio]1.2 {ratio}NormalThe [facility] on above:Performed By: #### CMP, TSH, LIPID, FT3 #### [facility] [address] [place] [address] Dr. Lazara Irving [Catalytic activity/Vol]79 U/ZNpxqbn27-463Oxu [facility] HospitalComment on above:Performed By: #### CMP, TSH, LIPID, FT3 #### [facility] [address] [place] [address] Dr. Lazara Savage [Catalytic activity/Vol]76 U/LCritically aoaw20-13Yqc [facility] on above:Performed By: #### CMP, TSH, LIPID, FT3 #### [facility] [address] [place] [address] Dr. Lazara Acosta gap [Moles/Vol]10.6 mmol/LNormalMartin Memorial Hospital Comment on above:Performed By: #### CMP, TSH, LIPID, FT3 #### [facility] [address] [address] [address] Lazara MottAST [Catalytic activity/Vol]21 U/HKuhvsm70-72Wmo [facility] HospitalComment on above:Performed By: #### CMP, TSH, LIPID, FT3 #### [facility] [address] [place] [address] Dr. Lazara MottBilirubin [Mass/Vol]0.4 mg/dLNormal0.2-1.3The [facility] Comment on above:Performed By: #### CMP, TSH, LIPID, FT3 #### [facility] [address] [place] [address] Dr. Lazara MottCalcium [Mass/Vol]9.0 mg/dLNormal8.4-10.2[facility] Comment on above:Performed By: #### CMP, TSH, LIPID, FT3 #### [facility] [address] [place] [address] Dr. Lazara MottChloride [Moles/Vol]104 mmol/IFmqlnt05-039JlvMartin Memorial Hospital Comment on above:Performed By: #### CMP, TSH, LIPID, FT3 #### [facility] [address] [place] [address] Dr. Lazara MottCO2 [Moles/Vol]27.1 mmol/PCdwhue17.0-30.0The [facility] Comment on above:Performed By: #### CMP, TSH, LIPID, FT3 #### [facility] [address] [place] [address] Dr. Lazara MottCreatinine [Mass/Vol]1.13 mg/dLNormal0.66-1.25The [facility] HospitalComment on above:Performed By: #### CMP, TSH, LIPID, FT3 #### [facility] [address] [place] [address] Dr. Haile ChangEGFR-AF CHILEAN>60Normal>=60The [facility] HospitalComment on above:Performed By: #### CMP, TSH, LIPID, FT3 #### [facility] [address] [place] [address] Dr. Lazara QuanGFR-NON AF CHILEAN>60Normal>=60The [facility] HospitalComment on above:Performed By: #### CMP, TSH, LIPID, FT3 #### [facility] [address] [place] [address] Dr. Lazara MottGlobulin (S) [Mass/Vol]3.3 g/dLNormalThe [facility]ull [facility] HospitalComment on above:Performed By: #### CMP, TSH, LIPID, FT3 #### [facility] [address] [place] [address] Dr. Lazara MottGlucose [Mass/Vol]95 mg/hENfsnxu36-282BdxMartin Memorial Hospital Comment on above:Performed By: #### CMP, TSH, LIPID, FT3 #### [facility] [address] [place] [address] Dr. Lazara MottPotassium [Moles/Vol]3.7 mmol/LNormal3.4-5.0[facility] Comment on above:Performed By: #### CMP, TSH, LIPID, FT3 #### [facility] [address] [place] [address] Dr. Lazara MottProtein [Mass/Vol]7.4 g/dLNormal6.1-8.2[facility] Comment on above:Performed By: #### CMP, TSH, LIPID, FT3 #### [facility] [address] [place] [address] Dr. Lazara MottSodium [Moles/Vol]138 mmol/MLlaumc308-560MaiMartin Memorial Hospital Comment on above:Performed By: #### CMP, TSH, LIPID, FT3 #### [facility] [address] [place] [address] Dr. Lazara MottUrea nitrogen [Mass/Vol]13.0 mg/dLNormal9.0-20.0The [facility] HospitalComment on above:Performed By: #### CMP, TSH, LIPID, FT3 #### [facility] [address] [address] [address] Lazara MottUrea nitrogen/Creatinine [Mass ratio]11.5 mg/mgOhioHealth Grant Medical CenterComment on above:Performed By: #### CMP, TSH, LIPID, FT3 #### [facility] [address] [place] [address] Dr. Lazara GranadosHon 52-47-8635COU8.329 uIU/mLNormal0.470-4.680The [facility] HospitalComment on above:Performed By: #### CMP, TSH, LIPID, FT3 #### [facility] [address] [place] [address] Dr. Lazara GranadosCOOPER COUNTY MEM[facility]IAL [facility] BELOWOhioHealth Grant Medical CenterComment on above: Result Comment: <0.34 UIU/ml HYPERTHYROID 0.34-5.60 UIU/ml EUTHYROID >5.60 UIU/ml HYPOTHYROIDPerformed By: #### CMP, TSH, LIPID, FT3 #### [facility] [address] [place] [address] Dr. Lazara MottXR CHEST 2 Von 34-41-2546ZV CHEST 2 VEXAMINATION: XR CHEST 2 V [...] Electronically authenticated by: LISSETH SANTOS Date: 2021-08-20 10:06[facility] Vital Signs Date TimeVital SignValuePerforming YcangquhdAswakukd76-86-9223 07:52-0400Body mass index (BMI) [Ratio]25.5 kg/g4Osnvdaby Marcos [facility]- Work Phone: [facility] HospitalQxdzribwjs44-09-6615 07:52-0400Body .28 kgKwame Rodríguez [facility] Work Phone: [facility] HospitalSytwcmpelr27-76-1393 07:52-0400Diastolic blood kkkxtanf21 mm[Hg]Kwame Rodríguez PMHNP-BC Work Phone: 1(982)[facility] [place], [place] [address]Hobrlviqbv99-11-1995 07:52-0400Heart rate71 /min Kwame Rodríguez PMHNP-BC Work Phone: 1(118)[address] [place], [place] 3204408-06-2025 07:52-0400Systolic blood nlnkcheh235 mm[Hg]Kwame Rodríguez PMHNP-BC Work Phone: 1(416)[address] [place], [place] 3204407-18-2025 09:28-0400Diastolic blood ajdsrxku81 mm[Hg]Olena Gomez MD Work Phone: [facility]07-18-2025 09:28-0400Heart rate71 /min Olena Gomez MD Work Phone: [facility]07-18-2025 09:28-0666WwA6% (BldA) [Mass fraction]99 %Olena Gomez MD Work Phone: [facility]07-18-2025 09:28-0400Systolic blood mm[Hg]Olena Gomez MD Work Phone: [facility]07-09-2025 07:56-0400Body mass index (BMI) [Ratio]26.04 kg/l1UihaiqwcKwame Rodríguez PMHNP-BC Work Phone: 1(495)681-[facility] HospitalRmidinkcbe47-72-1186 07:56-0400Body ehvkxu52.09 kgKwame Rodríguez PMHNP-BC Work Phone: 1(665)[address]07-09-2025 07:56-0400Diastolic blood erjnagxm06 mm[Hg]Kwame Rodríguez PMHNP-BC Work Phone: 1(993)968-[address] [place], [place] [address]Nsnhvfjepv26-23-7661 07:56-0400Heart rate67 /min Kwame Rodríguez PMHNP-BC Work Phone: 1(096)[facility] [place], [place] [address]Rplennkhqm91-74-0322 07:56-0400Systolic blood ccijzate672 mm[Hg]Kwame Rodríguez PMHNP-BC Work Phone: [facility] HospitalRpyqtfvptc29-62-9512 08:32-0400Body mass index (BMI) [Ratio]26.04 kg/m2Georgia Davey TUTOR Work Phone: noSac-[facility] HospitalUpndhgpjhf60-21-8482 08:32-0400Body temperature 97.81 [degF]Georgia Davey TUTOR Work Phone: [facility] HospitalZdxlflcbfc48-42-5910 08:32-0400Body .09 kgGeorgia Davey TUTOR Work Phone: [facility] HospitalXdpvwwtgqs16-27-3025 08:32-0400Diastolic blood abxiqlwt18 mm[Hg]Georgia Davey TUTOR Work Phone: [facility] HospitalTtyzihovnm68-03-9879 08:32-0400Heart rate71 /min Georgia Davey TUTOR Work Phone: [facility] HospitalYlkogohdcs13-76-7370 08:32-0400Respiratory rate18 /minLisa Davey TUTOR Work Phone: [facility] HospitalEscbenksxh03-86-8351 08:32-8401ViU7% (BldA) [Mass fraction]97 %Georgia Davey TUTOR Work Phone: [facility] HospitalPyfetwkbur74-35-6704 08:32-0400Systolic blood fcryievy893 mm[Hg]Georgia Davey TUTOR Work Phone: [facility] HospitalKoqkmgspot56-34-5792 07:49-0400Body mass index (BMI) [Ratio]26.99 kg/q4JxnkwopeKwame Rodríguez PMHNP-BC Work Phone: [facility] HospitalEqakouzvwd70-39-0051 07:49-0400Body nwdyii31.27 kgKwame Rodríguez PMHNP-BC Work Phone: noSac-[facility] HospitalKjlybveqdz96-68-5956 07:49-0400Diastolic blood butlnxng21 mm[Hg]Kwame Rodríguez PMHNP-BC Work Phone: 1(347)[address] [place], [place] 3204405-14-2025 07:49-0400Heart rate86 /min Kwame Rodríguez PMHNP-BC Work Phone: 1(624)[address] [place], [place] 3204405-14-2025 07:49-0400Systolic blood btcmlfuf559 mm[Hg]Kwame Rodríguez PMHNP-BC Work Phone: 1(468)[address] [place], [place] 3204404-23-2025 07:55-0400Body mass index (BMI) [Ratio]26.99 kg/c8NewqedkeKwame Rodríguez PMHNP-BC Work Phone: 1(158)[address] [place], [place] 3204404-23-2025 07:55-0400Body ijdrkb50.27 kgKwame Rodríguez PMHNP-BC Work Phone: 1(754)[address] [place], [place] 3204404-23-2025 07:55-0400Diastolic blood gjwfaovw47 mm[Hg]Kwame Rodríguez PMHNP-BC Work Phone: 1(608)[address] [place], [place] 3204404-23-2025 07:55-0400Heart rate67 /min Kwame Rodríguez PMHNP-BC Work Phone: 1(346)[address] [place], [place] 3204404-23-2025 07:55-0400Systolic blood mm[Hg]Kwame Rodríguez PMHNP-BC Work Phone: 1(540)[address] [place], [place] 3204404-02-2025 07:49-0400Body mass index (BMI) [Ratio]27.53 kg/w9WfyaojvkKwame Rodríguez PMHNP-BC Work Phone: 1(582)[address] [place], [place] 3204404-02-2025 07:49-0400Body .08 kgKwame Rodríguez PMHNP-BC Work Phone: 1(300)[address] [place] [address]-02-2025 07:49-0400Diastolic blood lichpwot72 mm[Hg]Kwame Rodríguez PMHNP-BC Work Phone: 1(720)[address] [place], [place] 3204404-02-2025 07:49-0400Heart rate68 /min Kwame Rodríguez PMHNP-BC Work Phone: 1(445)[address] [place], [place] 3204404-02-2025 07:49-0400Systolic blood kqervrol810 mm[Hg]Kwame Rodríguez PMHNP-BC Work Phone: 1(786)[address] [place], [place] 3204402-26-2025 10:30-0500Body mass index (BMI) [Ratio]28.48 kg/d1XkcfupptKwame Rodríguez PMHNP-BC Work Phone: 1(677)[address] [place], [place] 3204402-26-2025 10:30-0500Body yfkaep42.25 kgKwame Rodríguez PMHNP-BC Work Phone: 1(315)[address] [place], [place] 3204402-26-2025 10:30-0500Diastolic blood hyiwchli72 mm[Hg]Kwame Rodríguez PMHNP-BC Work Phone: 1(015)[address] [place], [place] 3204402-26-2025 10:30-0500Heart rate67 /min Kwame Rodríguez PMHNP-BC Work Phone: 1(350)[address] [place], [place] 3204402-26-2025 10:30-0500Systolic blood usukjylg243 mm[Hg]Kwame Rodríguez PMHNP-BC Work Phone: 1(698)[address] [place], [place] 3204401-22-2025 09:18-0500Body mass index (BMI) [Ratio]28.48 kg/i5YlkmdwhuKwame Rodríguez TUTOR Work Phone: 1(212)[address] [place], [place] 3204401-22-2025 09:18-0500Body qhzysb34.25 kgKwame Rodríguez TUTOR Work Phone: 1(274)[address] [place], [place] 3204401-22-2025 09:18-0500Diastolic blood fjoabimf55 mm[Hg]Kwame Keyeston TUTOR Work Phone: 1(885)[address] [place], [place] 3204401-22-2025 09:18-0500Heart rate74 /min Kwame Keyeston TUTOR Work Phone: 1(456)[address] [place], [place] 3204401-22-2025 09:18-0500Systolic blood dqcnuksm309 mm[Hg]Kwame Keyeston TUTOR Work Phone: 1(298)[address] [place], [place] 3204412-31-2024 08:52-0500Body mass index (BMI) [Ratio]28.48 kg/e6TgkabawpKwame Rodríguez TUTOR Work Phone: [facility] HospitalKompcfdbtk85-14-7550 08:52-0500Body uunlju60.25 kgKwame Rodríguez TUTOR Work Phone: 1(642)[facility]-[address] [place], [place] [address]Lxlpxivnya64-27-1123 08:52-0500Diastolic blood jewamxnf26 mm[Hg]Kwame Rodríguez TUTOR Work Phone: 1(779)[facility] [place], [place] [address]Wjmprxnoay71-60-0830 08:52-0500Heart rate68 /min Kwame Rodríguez TUTOR Work Phone: 1(393)[facility] [place], [place] [address]Xrevmvndyt44-31-9492 08:52-0500Systolic blood wmaiwqsa504 mm[Hg]Kwame Rodríguez TUTOR Work Phone: 1(547)942-[address] [place], [place] [address]Kizzeiagiu64-73-4864 08:48-0500Body .9 cmJn Mccullough DO Work Phone: 1(510)[address] [place], [place] 3986212-11-2024 08:48-0500Body mass index (BMI) [Ratio]28.54 kg/m2Jn Mccullough DO Work Phone: 1(640)[facility] [place], [place] [address]Osjvoifdag45-75-7925 08:48-0500Body tzmsgo18.44 kgJn Mccullough DO Work Phone: 1(010)[facility] [place], [place] [address]Ozjwzepoah79-53-7311 08:48-0500Diastolic blood qevseeem81 mm[Hg]Jn Mccullough DO Work Phone: 1(384)[facility] [place], [place] [address]Nueaafbsnr20-49-2711 08:48-0500Heart rate78 /min Jn Mccullough DO Work Phone: 1(026)[facility] [place], [place] [address]Cyvmyybznz97-96-3583 08:48-0500Respiratory rate12 /minJn Mccullough DO Work Phone: 1(510)[facility] [place], [place] [address]Nxingqxrol96-46-2800 08:48-5580NiN1% (BldA) [Mass fraction]99 %Jn Mccullough DO Work Phone: 1(189)[facility] [place], [place] [address]Oeduuzamre51-00-0909 08:48-0500Systolic blood mm[Hg]Jn Mccullough DO Work Phone: noS[facility] HospitalJxxdhzxzbm42-55-6898 08:14-0500Body mass index (BMI) [Ratio]28.48 kg/q9MpnttuchKwame Rodríguez TUTOR Work Phone: noS[facility] HospitalGfsjmplynq87-12-4760 08:14-0500Body usnepy16.25 kgKwame Rodríguez TUTOR Work Phone: noS[facility] HospitalDzltwdxlzb01-97-2462 08:14-0500Diastolic blood lhbgefrn53 mm[Hg]Kwame Rodríguez TUTOR Work Phone: [facility] HospitalAmhzfltbrb94-12-1803 08:14-0500Heart rate73 /min Kwame Rodríguez TUTOR Work Phone: noS[facility] HospitalNbpnouslsq83-32-7789 08:14-0500Systolic blood lfbvhimk425 mm[Hg]Kwame Rodríguez TUTOR Work Phone: [facility] HospitalZhjzwykixf39-21-6674 08:44-0500Body .9 Tarijae Tamica TUTOR Work Phone: [address] [address]Iifwfucava47-96-0986 08:44-0500Body mass index (BMI) [Ratio]28.21 kg/m2Sherrill Tamica TUTOR Work Phone: [facility] HospitalXfjdguxxjh95-87-5607 08:44-0500Body temperature 97.81 [degF]Georgia Tamica TUTOR Work Phone: [facility] HospitalIdzgopwyae04-30-6412 08:44-0500Body ibuimb39.35 kgLisa Tamica TUTOR Work Phone: [address] [address]Zeambgbiko11-43-7816 08:44-0500Diastolic blood xxumatpa63 mm[Hg]Georgia Tamica TUTOR Work Phone: [address] [address]Rkauuyficu48-51-5141 08:44-0500Heart rate78 /min Georgia Tamica TUTOR Work Phone: [address] [address]Nvvvwlhske36-27-0791 08:44-0500Respiratory rate20 /minLisa Tamica TUTOR Work Phone: [facility] HospitalOjjxtstagf52-96-7206 08:44-4816UdT7% (BldA) [Mass fraction]96 %Georgia Davey TUTOR Work Phone: [facility] HospitalLswnwbeupb86-88-4955 08:44-0500Systolic blood znnrhpti881 mm[Hg]Georgia Davey TUTOR Work Phone: [facility] HospitalRfjvsyltfd40-53-3567 08:49-0500Body mass index (BMI) [Ratio]28.89 kg/d1CgbjpzJim Wilde TUTOR Work Phone: NOSac-Osage HospitalDfbzolfvcl26-63-6201 08:49-0500Body .62 kgJim Wilde TUTOR Work Phone: [facility] HospitalLujjjkntwo41-62-7386 08:49-0500Diastolic blood slymxgwc91 mm[Hg]Jim Wilde TUTOR Work Phone: [facility] HospitalWawcsxaaen80-33-6393 08:49-0500Heart rate96 /min Jim Wilde TUTOR Work Phone: [address] [address]Cakvadnscv85-16-8630 08:49-0500Systolic blood szjieezz835 mm[Hg]Jim Wilde TUTOR Work Phone: [facility] HospitalWdouyibgaa89-65-9171 07:51-0400Body .9 cmChristopher Jamison DO Work Phone: [facility] HospitalNpunuermbs99-50-4722 07:51-0400Body mass index (BMI) [Ratio]28.86 kg/o8Rkckcqvaahj Jamison DO Work Phone: [address] [address]Eozomtwexw39-92-0184 07:51-0400Body vlksuc05.53 kgChristopher Jamison DO Work Phone: [address] [address]Cnjcfxehzl44-77-5069 07:51-0400Diastolic blood kjoalcoe90 mm[Hg]Christopher Jamison DO Work Phone: [address] [address]Cjyxokvzwl62-85-8670 07:51-0400Heart rate84 /min Christopher Jamison DO Work Phone: noSac-Osage HospitalCztmbsjoru29-41-8228 07:51-8903AcY0% (BldA) [Mass fraction]97 %Nadia Swift DO Work Phone: noS[facility] HospitalQfizmhfcpd98-99-8420 07:51-0400Systolic blood vsaypmxh195 mm[Hg]Nadia Swift DO Work Phone: noSac-Os[facility] HospitalFsagtqmpdy81-07-0614 11:15-0400Body .9 cmLisa Yogeshz TUTOR Work Phone: [facility] HospitalSakkiltgkk24-35-7450 11:15-0400Body mass index (BMI) [Ratio]28.48 kg/m2Lisa Racielholz TUTOR Work Phone: [facility] HospitalShmavuynae53-62-1287 11:15-0400Body temperature 98.71 [degF]Georgia Tamica TUTOR Work Phone: [facility] HospitalLaqsoskavk56-47-1621 11:15-0400Body fqobob89.25 kgLisa Goodhholz TUTOR Work Phone: [facility] HospitalOexekavibj55-27-1608 11:15-0400Diastolic blood mm[Hg]Georgia Racielvidalz TUTOR Work Phone: [facility] HospitalEdfnzcolpi13-98-4471 11:15-0400Heart rate86 /min Georgia Racielholz TUTOR Work Phone: [facility] HospitalSowlqdvcms75-28-1950 11:15-0400Respiratory rate18 /minLisa Goodhholz TUTOR Work Phone: [facility] HospitalXfijkjtgmj25-78-9183 11:15-2962EdH4% (BldA) [Mass fraction]97 %Georgia Racielholz TUTOR Work Phone: [facility] HospitalOkkxbopxfq12-50-1279 11:15-0400Systolic blood apnleamq213 mm[Hg]Georgia Goodhholz TUTOR Work Phone: [facility] Healthcare Encounters Encounter DateEncounter TypeCare ProviderFacilityStart: 22-75-6068wmmoyowhnk [place] SADEFacility:CD:[id number]: 05-08-2025 End: 17-14-7598udlrefsifyXmybfgo R WATERSFacility:EU EugeniaueStart: 05-08-2025 End: 94-81-7718Qgrusjg encounter procedureCaitieroc [facility] [place] start: 85-24-8058otvdhszukyItdauas WATERSFacility:EU [place]Start: 03-29-2025 End: 20-49-3422Ntkxyp outpatient visit 15 minutesKwame Rodríguez [facility]- Work Phone: noms [facility]al HealthComment on above:Bipolar 2 disorder (HCC); SAMRA (generalized anxiety disorder) ; Tardive dyskinesiaStart: 03-29-2025 End: 01-26-9078Iorofd OnlyKwame Rodríguez [facility]- Work Phone: noms [facility] HealthComment on above:Bipolar 2 disorder (HCC); SAMRA (generalized anxiety disorder)Start: 02-22-2025 End: 99-18-6096Zvspcg flowsValerie Rodríguez HNP-BC Work Phone: noms [facility] HealthStart: 02-22-2025 End: 33-89-6518Llscau flowsValerie Rodríguez HNP-BC Work Phone: noms [facility] HealthStart: 02-22-2025 End: 57-27-3216Hvvhaa outpatient visit 15 minutesKwame Rodríguez HNP-BC Work Phone: noms [facility] HealthComment on above:Tardive dyskinesia (Primary Dx); SAMRA (generalized anxiety disorder) ; Bipolar 2 disorder (HCC)Start: 02-22-2025 End: 71-96-7699oceafnogytQMXSALNS MARCOSNot AvailableStart: 02-16-2025 End: 21-67-7552GJ/PT/Speech VisitRickalee Luis PT Work Phone: [facility] Physical TherapyComment on above:Functional movement disorder; Dyskinesia, tardiveStart: 02-15-2025 End: 13-02-8036Flbhzya encounter procedureStevo Garcia PSYD Work Phone: [facility] RestorationComment on above:Adjustment disorder with mixed anxiety and depressed mood (Primary Dx); Functional movement disorder; Dyskinesia, tardiveStart: 02-15-2025 End: 80-92-6858fvamgiefgjATWEF HASNIEFacility:Community [facility] Hospitaltart: 02-03-2025 End: 27-41-9372U-mail encounter from Leslie Ramos MD Work Phone: [facility] RestorationStart: 02-03-2025 End: 17-08-3849Xqnzqa outpatient new 45 minutesOlena Gomez MD Work Phone: Neurological RestorationComment on above:Functional movement disorder (Primary Dx); Dyskinesia, tardive; Drug-induced parkinsonism (HCC)Start: 02-03-2025 End: 70-20-5629cdrnitbetyMakt A Shuaib MD Work Phone: [facility] RestorationStart: 01-25-2025 End: 85-89-6526Ytjjxy outpatient visit 25 minutesKwame Rodríguez PMHNP-BC Work Phone: [facility] CI BHComment on above:Current episode of major depressive disorder without prior episode, unspecified depression episode s everity ; Bipolar 2 disorder (HCC); SAMRA (generalized anxiety disorder) ; Tremor; Tardive dyskinesiaStart: 01-25-2025 End: 96-04-2326lgkirfasojNAOPTZHI BRITTONNot AvailableStart: 01-24-2025 End: 04-70-8030Ttrjmn flowsheetLisa Aichholz TUTOR Work Phone: NOBU CWM FMStart: 01-24-2025 End: 72-99-2582Pdmyba flowsheetLisa Aichholz TUTOR Work Phone: noms CWM FMStart: 01-24-2025 End: 06-80-0774Nfwnat outpatient visit 25 minutesLisa Racielholz TUTOR Work Phone: noms CWM FMComment on above:Weight loss, unintentional (Primary Dx); Tardive dyskinesia; Mixed bipolar affective disorder, mild (HCC)Start: 01-24-2025 End: 53-18-0069alwygmjpkoQNCG AICHHOLZNot AvailableStart: 12-08-2024 End: 12-12-8657byzobkxnjdMBZE AICHHOLZNot AvailableStart: 11-30-2024 End: 63-91-1382Phguqf flowsheetKwame Rodríguez PMHNP-BC Work Phone: [facility] CI BHStart: 11-30-2024 End: 73-38-0961Bcakie flowsheetKwame Rodríguez PMHNP-BC Work Phone: [facility] CI BHStart: 11-30-2024 End: 36-64-3954Ufvyww outpatient visit 25 minutesKwame Rodríguez PMHNP-BC Work Phone: [facility] CI BHComment on above:Bipolar 2 disorder (CMS/HCC); SAMRA (generalized anxiety disorder) (CMS/HCC); Tremor; Tardive dyskinesia; Current episode of major depressive disorder without prior episode, unspecified depression episode severity (CMS/HCC)Start: 11-30-2024 End: 80-56-4669vvsslyhsyqXANWCNIM BRITTONNot AvailableStart: 11-09-2024 End: 79-52-1591Kzdwit flowsheetKwame Rodríguez PMHNP-BC Work Phone: [facility] CI BHStart: 11-09-2024 End: 36-25-5441Nipphh flowsheetKwame Rodríguez PMHNP-BC Work Phone: [facility] CI BHStart: 11-09-2024 End: 13-09-3718Hcidkk outpatient visit 25 minutesKwame Rodríguez PMHNP-BC Work Phone: [facility] CI BHComment on above:Bipolar 2 disorder (CMS/HCC); SAMRA (generalized anxiety disorder) (CMS/HCC); Tardive dyskinesia; TremorStart: 11-09-2024 End: 30-16-0647dkttknbhouSSBDZKVL BRITDANYNot AvailableStart: 10-19-2024 End: 39-27-1441Hwqfsv flowsheetKwame Rodríguez PMHNP-BC Work Phone: [facility] CI BHStart: 10-19-2024 End: 56-66-2067Pohsel flowsheetMerflex Rodríguez PMHNP-BC Work Phone: [facility] CI BHStart: 10-19-2024 End: 50-26-5266Ybwlqe outpatient visit 25 minutesMerflex Rodríguez PMHNP-BC Work Phone: [facility] CI BHComment on above:Tardive dyskinesia; Bipolar 2 disorder (CMS/HCC); SAMRA (generalized anxiety disorder) (CMS/HCC)Start: 10-19-2024 End: 91-56-9441yyykckjvdcGTJJKWQU BRITTONNot AvailableStart: 10-17-2024 End: 36-79-3533Lpufnxysi encounterMerflex Rodríguez PMHNP-BC Work Phone: [facility] CI BHComment on above:Advice OnlyStart: 10-05-2024 End: 98-49-6996sxlfuxrnfeNIOGFEAE BRITDANYNot AvailableStart: 09-14-2024 End: 21-12-7016Lysmkk flowsheetKwame Rodríguez PMHNP-BC Work Phone: [facility] CI BHStart: 09-14-2024 End: 08-14-3275Zjelxf flowsheetKwame Rodríguez PMHNP-BC Work Phone: [facility] CI BHStart: 09-14-2024 End: 68-48-4262Ugulsn outpatient visit 25 minutesMerflex Rodríguez PMHNP-BC Work Phone: [facility] CI BHComment on above:Bipolar 2 disorder (CMS/HCC); Tardive dyskinesia; TremorStart: 09-14-2024 End: 05-61-2633ammvuirvlwZWFINNVB BRITTONNot AvailableStart: 08-22-2024 End: 38-46-4627Rfbhwy flowsheetBayley Malicki LPCNOMS CI BHStart: 08-22-2024 End: 49-34-2065Ftuytb flowsheetBayley Malicki LPCNOMS CI BHStart: 08-22-2024 End: 33-19-3595tufusdxfjgJAFFWG MALICKINot AvailableStart: 08-10-2024 End: 76-07-0004Njccvn flowsheetMeredarcelia Rodríguez TUTOR Work Phone: [facility] CI BHStart: 08-10-2024 End: 16-99-9485Gtdogt flowsheetMeredarcelia Rodríguez TUTOR Work Phone: [facility] CI BHStart: 08-10-2024 End: 66-56-0510Ircdpp outpatient visit 25 minutesKwame Rodríguez TUTOR Work Phone: [facility] CI BHComment on above:Bipolar 2 disorder (CMS/HCC); Tardive dyskinesiaStart: 08-10-2024 End: 72-81-5360wggnpxbyciYOCVYKUF BRITTONNot AvailableStart: 07-19-2024 End: 80-07-9800Rasdaa flowsheetMeredarcelia Rodríguez TUTOR Work Phone: [facility] CI BHStart: 07-19-2024 End: 81-27-9017Pemeih flowsheetMerflex Rodríguez TUTOR Work Phone: [facility] CI BHStart: 07-19-2024 End: 31-17-3613Uxawrf outpatient visit 25 minutesKwame Rodríguez TUTOR Work Phone: [facility] CI BHComment on above:Bipolar 2 disorder (CMS/HCC); Tardive dyskinesiaStart: 07-19-2024 End: 93-42-8846wzkxlxamhrSZJLZUGG BRITTONNot AvailableStart: 06-29-2024 End: 32-19-9301Tpxoyh flowsheetJn Mccullough DO Work Phone: [facility] BWM GENSStart: 06-29-2024 End: 59-15-5208Offoug flowsheetJn Mccullough DO Work Phone: [facility] BWM GENSStart: 06-29-2024 End: 99-82-5502Aldbxi outpatient new 45 minutesKyle Cecilia DO Work Phone: [facility] BWM GENSComment on above:Rectal bleeding (Primary Dx)Start: 06-29-2024 End: 61-97-2140dxacqjuhscAFZH TRINIDADETTNot AvailableStart: 06-22-2024 End: 67-03-9541Eckdqq Gloria Rodríguez TUTOR Work Phone: [facility] CI BHStart: 06-22-2024 End: 56-76-1231Pknhrd Gloria Rodríguez TUTOR Work Phone: [facility] CI BHStart: 06-22-2024 End: 49-35-7153Hftmfu outpatient visit 40 minutesKwame Rodríguez TUTOR Work Phone: [facility] CI BHComment on above:Bipolar 2 disorder (CMS/HCC); Tardive dyskinesiaStart: 06-22-2024 End: 82-95-7843koezfdwxwdBFNGJZBM BRITTONNot AvailableStart: 06-13-2024 End: 30-26-6022Lwljcz flowsheetGeorgia Davey TUTOR Work Phone: [facility] FMStart: 06-13-2024 End: 48-74-5208Csamxb flowsheetGeorgia Davey TUTOR Work Phone: [facility] FMStart: 06-13-2024 End: 72-97-8054Hjncpjz encounter statusLisa Tamica TUTOR Work Phone: [facility] HealthcareStart: 06-13-2024 End: 11-76-0092Jqqhtlhw preventive med est patient 40-64yrsLisa Davey TUTOR Work Phone: [facility] FMComment on above:Encounter for wellness examination in adult (Primary Dx); Tremor, unspecified; Overweight (BMI 25.0-29.9); Bipolar 1 disorder ([facility] RashStart: 06-13-2024 End: 66-06-6453oygdvlltodFQZT Kelechi AvailableStart: 06-02-2024 End: 68-85-6175Hwelag Tony Wilde TUTOR Work Phone: [facility]TEStart: 06-02-2024 End: 21-70-4456Muwzsm Tony Wilde TUTOR Work Phone: [facility]TEStart: 06-02-2024 End: 49-64-9874gwoxnznkojDZUKSO MORRISNot AvailableStart: 06-02-2024 End: 31-30-4162Wvyefb outpatient visit 25 minutesJim Wiled TUTOR Work Phone: [facility] ROUTEComment on above:Tardive dyskinesia (Primary Dx); Tremor, unspecifiedStart: 05-18-2024 End: 05-47-9892Szupcadmm Result EncounterChristopher Jamison DO Work Phone: [facility] External Department UnsolicitedStart: 05-18-2024 End: 42-67-1142Pnyxgvohj Result EncounterChristopher Jamison DO Work Phone: [facility] External Department UnsolicitedStart: 05-05-2024 End: 63-18-1987Ayvuyp flowsheetChristopher Jamison DO Work Phone: [facility]TEStart: 05-05-2024 End: 51-10-4553Otbznu flowsheetChristopher Jamison DO Work Phone: [facility]TEStart: 05-05-2024 End: 58-57-1370Fptugv outpatient new 45 minutesChristopher Jamison DO Work Phone: [facility] ROUTEComment on above:Ataxia (Primary Dx); Tremor, unspecified; Tardive dyskinesiaStart: 05-05-2024 End: 25-41-4434wwvodeunhbJZOREPICYPE HASSETTNot AvailableStart: 04-19-2024 End: 94-57-4795Edzyhn Stephon Davey TUTOR Work Phone: NOMS CWM FMStart: 04-19-2024 End: 18-48-0148Yiraeq Stephon Davey TUTOR Work Phone: NOAH CWM FMStart: 04-19-2024 End: 51-68-6787Uwxknm outpatient visit 25 minutesGeorgia Davey TUTOR Work Phone: NORL CWM FMComment on above:Tremor, unspecified (Primary Dx); Overweight (BMI 25.0-29.9)Start: 04-19-2024 End: 83-93-7823aqospmvbudMPHK AICHHOLZNot AvailableStart: 09-18-2023 End: 19-07-5768Dsaigovxm Result EncounterGeorgia Davey TUTOR Work Phone: noms External Department UnsolicitedStart: 09-18-2023 End: 74-76-5122Elrywguku Result EncounterGeorgia Davey TUTOR Work Phone: noms External Department UnsolicitedStart: 09-02-2023 End: 04-44-3054kllyccfdiqYidawf T Blackston PT Work Phone: NOMS CI PTComment on above:Internal derangement of right shoulder (Primary Dx); S/P arthroscopy of right shoulderStart: 98-28-3794Fchqhc flowsChanaremle T Blackston PT Work Phone: NOMS CI PTStart: 22-19-3408Sznpnd flowsheetJeremy T Blackston PT Work Phone: NOMS CI PTStart: 08-31-2023 End: 47-24-1916laudfsnkftWmmkwe T Blackston PT Work Phone: NOMS CI PTComment on above:Internal derangement of right shoulder (Primary Dx); S/P arthroscopy of right shoulderStart: 08-28-2023 End: 04-76-0393abibhcapugLgfnitfElen Solomon PTANOMS CI PTComment on above:Internal derangement of right shoulder (Primary Dx); S/P arthroscopy of right shoulderStart: 05-50-2093Lgwvaz Saud Solomon PTANOMS CI PTStart: 09-52-3194Qvfids Saud Solomon PTANOMS CI PTStart: 08-26-2023 End: 08-59-0330rmkvdcfunoQvyrijd Lawrence PTANOMS CI PTComment on above:Internal derangement of right shoulder (Primary Dx); S/P arthroscopy of right shoulderStart: 46-21-0000Ncayij Tripp Maza PTANOMS CI PTStart: 70-52-0156Mypiyk Tripp Maza IT APPLICATION ARCHITECT NOMS CI PTStart: 08-24-2023 End: 51-86-3988xxbogocmwqZeqjpj Tattersall PTANOMS CI PTComment on above: Internal derangement of right shoulder (Primary Dx); S/P arthroscopy of right shoulderStart: 44-33-2209Rbjhq abstractingGio BLOOD Work Phone: noms ORTHOPAEDICSStart: 61-53-9841Vuvhbtilt for general adult medical examination without abnormal findingsCNP [place] [facility]Start: 04-23-2022 End: 93-88-0042qsmsmhjucsQJV GEOR[place]IA DAVEYFacility:D5Zbgmk: 04-23-2022 End: 06-75-8911Aqguwzgio for general adult medical examination without abnormal findingsCNP GEORGIA TAMICAFacility:N9Tpamt: 75-95-4435camfzeuuazGPK GEOR[place]IA DAVEY Facility:G7Eadus: 08-30-2021 End: 78-92-9666jqwaashrbuQGV GEORGIA TAMICAFacility:E2Alnwl: 08-20-2021 End: 08-72-8829qhhwoeyjkbINV GEOR[place]IA TAMICAFacility:H1 Procedures DateProcedureProcedure DetailPerforming ClinicianStart: 08-22-2024 End: 89-07-3989Swwaeomekpj diagnostic evaluationBipolar 2 disorder (CMS/HCC) Armen Hernández LPCComment on above:Bipolar 2 disorder (CMS/HCC)Start: 05-18-2024 MRI HEAD/BRAIN WO/W CONTRChristopher Jamison DO Work Phone: Start: 84-22-6963IZ CHEST 2VLisa Tamica TUTOR Work Phone: Start: 06-57-2705XH PULMONARY FUNCTION TESTLisa Aichluis TUTOR Work Phone: H/O: vasectomyPatrick STUART History of cholecystectomyPatrick STUART History of repair of musculotendinous cuff of shoulder Taras SADE Plan of Treatment DateCare ActivityDetailAuthorStart: 08-07-2025 End: 38-21-2497Bmcxxvy encounter /19/2026 3:30 PM EST [facility] [address] [place] [address] Kwame Rodríguez [facility] [address] [place] [address] [facility] Start: 06-06-2025 End: 92-62-9999Vrdijdq encounter kuadnrosu90/18/2025 9:00 AM EST Office Visit [facility] [address] [place] [address] Sudha Soto, MEDICAID PLAN COMPLIANCE DIRECTOR.KICKING MACHINE OPERATOR [address] [place] [address] follow upNeurological RestorationComment on above:follow up Start: 04-10-2025 End: 06-72-2423Pkilpbl encounter htwybdqnd64/22/2025 9:40 AM EDT Office Visit [facility] [address] [place] [address] Georgia Davey, JA [address] [place] [address] [facility]S [facility] – TULSAtart: 03-29-2025 End: 74-11-9761Ikcqgmh encounter nfkegxcvv70/10/2025 8:00 AM EDT Office Visit [facility] [address] [facility] [address] [place] [address] Kwame Rodríguez [facility] [address] [facility] [address] [place] [address] [facility] Start: 58-12-1429AAYDQ-19 Vaccine ( season)COVID-19 Vaccine ( season)NOMS HealthcareStart: 42-67-8330Nilkkrlnh vaccinationInfluenza Vaccine (#1)[facility]art: 02-22-2025 End: 38-37-5552Hmedjfb encounter molgcycxv11/06/2025 8:00 AM EDT Office Visit [facility] [address] [facility] [address] [place] [address] Kwame Rodríguez [facility] [address] [facility] [address] [place] [address] ArrivedNOMS [facility] Behavioral HealthComment on above:ArrivedStart: 02-20-2025 End: 66-60-7422Pdthsrw encounter powyvgqds74/04/2025 8:00 AM EDT Office Visit NOMS CI BH [address] [facility] [address] [place] [address] Kwame Rodríguez [facility] [address] [facility] [address] [place] [address] NOMS CI BHStart: 02-16-2025 End: 49-82-7051YH/PT/Speech Visit02/16/2025 7:45 AM EDT OT/PT/Speech Visit [facility] [address] [place] [address] [place] [address] [place] [address] 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]; Dyskinesia, tardive [G24.01][facility] Physical TherapyComment on above: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]; Dyskinesia, tardive [G24.01] Start: 02-15-2025 End: 22-54-1799Pwlqkqb encounter vxwgdpqjo88/30/2025 8:00 AM EDT Office Visit [facility] [address] [place] [address] Stevo Garcia PSYD [address] [place] [address] 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]; Dyskinesia, tardive [G24.01]Neurological RestorationComment on above: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]; Dyskinesia, tardive [G24.01]Start: 01-25-2025 End: 93-63-7817Uwxvryd encounter vqmfaoeue33/09/2025 8:00 AM EDT Office Visit [facility] [address] [facility] [address] [place] [address] Kwame Rodríguez [facility]- [address] [facility] [address] [place] [address] NOMS CI BHStart: 01-24-2025 End: 47-60-3505Jtwdpsl encounter qbvapzbou33/08/2025 8:40 AM EDT Office Visit [facility] [address] [place] [address] Georgia Davey, JA [address] [place] [address] Weight loss, unintentional (Primary Dx)NOMS CWM FMComment on above:Weight loss, unintentional (Primary Dx)Start: 12-08-2024 End: 59-41-8319Yxuxtjq encounter pwyzajodd94/22/2025 8:40 AM EDT Office Visit [facility] [address] [place] [address] Georgia Davey, JA [address] [place] [address] NOMS CWM FMStart: 11-30-2024 End: 07-91-5246Xtxselu encounter procedureNOMS CI BHComment on above:Bipolar 2 disorder (CMS/HCC); SAMRA (generalized anxiety disorder) (CMS/HCC); Tremor; Tardive dyskinesiaStart: 11-09-2024 End: 48-86-0431Crrqhzf encounter procedureNOMS CI BHComment on above:Bipolar 2 disorder (CMS/HCC); SAMRA (generalized anxiety disorder) (CMS/HCC); Tardive dyskinesia; TremorStart: 11-02-2024 End: 12-94-6887Wkiwxea encounter /16/2025 8:00 AM EDT Office Visit [facility] CI [facility] [address] [facility] [address] [place] [address] Kwame Rodríguez PMP-BC [address] [facility] [address] [place] [address] NOMS CI BHStart: 10-19-2024 End: 36-13-8402Icxcfak encounter procedureNOMS CI BHComment on above:Arrived Start: 10-05-2024 End: 88-04-2538Splquje encounter /19/2025 8:00 AM EDT Office Visit [facility] [address] [facility] [address] [place] [address] Kwame Rodríguez, HNP-BC [address] [facility] [address] [place] [address] NOMS CI BHStart: 09-28-2024 End: 24-94-9414Anspus Work09/28/2024 9:30 AM EDT Social Work [facility] CI [facility] [address] [place] [address] Armen Hernández LPC NOMS CI BHStart: 09-14-2024 End: 69-56-5176Ymbnwip encounter qyngedevy19/26/2025 10:30 AM EST Office Visit [facility] [address] [place] [address] Kwame Rodríguez, PMHNP-BC [address] [place] [address] Bipolar 2 disorder (CMS/HCC); Tardive dyskinesia; TremorNOMS CI BHComment on above:Bipolar 2 disorder (CMS/HCC); Tardive dyskinesia; TremorStart: 09-07-2024 End: 69-58-2616Xfmgkff encounter /19/2025 10:00 AM EST Office Visit [facility] [address] [place] [address] Kwame Rodríguez, TUTOR [address] [place] [address] NOMS CI BHStart: 08-22-2024 End: 87-08-5570Lsmbmi WorkNOMS CI BHComment on above:ArrivedStart: 08-10-2024 End: 90-30-3593Zfmzbas encounter procedureNOMS CI BHComment on above:Bipolar 2 disorder (CMS/HCC); Tardive dyskinesiaStart: 07-25-2024 End: 13-77-5223Uqwcfd Work07/25/2024 9:30 AM EST Social Work [facility] CI BH [address] [place] [address] Armen Hernández LPC NOMS CI BHStart: 07-19-2024 End: 70-15-1423Fgjxcnc encounter procedureNOMS CI BHComment on above:Bipolar 2 disorder (CMS/HCC); Tardive dyskinesiaStart: 06-29-2024 End: 27-10-5535Lzmljxj encounter procedureNOMS BWM GENSComment on above:Arrived Start: 06-22-2024 End: 03-73-0119Rsowpym encounter procedureNOMS CI BHComment on above:Tardive dyskinesia; Tremor, unspecifiedStart: 06-13-2024 End: 66-64-1017KPY W Auto Differential panel - BloodCBC and differential Lab Routine Encounter for wellness examination in adult Expected: 06/13/2024 (A pproximate), Expires: 06/13/2025[facility] Work Phone: Comment on above:Expected: 06/13/2024 (Approximate), Expires: 06/13/2025Start: 06-13-2024 End: 09-82-3820Sgacmfdxfkczf metabolic 2000 panel - Serum or PlasmaComprehensive metabolic panel Lab Routine Encounter for wellness examination in adult Expected: 06/13/2024 (Approximate), Expires: 06/13/2025[facility] HealthcareComment on above:Expected: 06/13/2024 (Approximate), Expires: 06/13/2025Start: 06-13-2024 End: 54-69-0934Qgjgd 1996 panel - Serum or PlasmaLipid panel Lab Routine Encounter for wellness examination in adult Expected: 06/13/2024 (Approximate), Expires: 06/13/2025[place] HealthcareComment on above:Expected: 06/13/2024 (Approximate), Expires: 06/13/2025Start: 06-13-2024 End: 31-63-6681Usxatmtyjbh [Units/volume] in Serum or PlasmaTSH Lab Routine Encounter for wellness examination in adult Expected: 06/13/2024 (Approximate), Expires: 06/13/2025[place] HealthcareComment on above:Expected: 06/13/2024 (Approximate), Expires: 06/13/2025Start: 06-13-2024 End: 82-67-7495Rlnsmqheks complete panel - UrineUrinalysis with reflex microscopic (clean catch) Lab Routine Encounter for wellness examination in a dult Expected: 06/13/2024 (Approximate), Expires: 06/13/2025[facility] Comment on above:Expected: 06/13/2024 (Approximate), Expires: 06/13/2025Start: 06-13-2024 End: 27-48-4057Lpabolx encounter procedureNOMS [facility] FMComment on above:Encounter for wellness examination in adult (Primary Dx); Tremor, unspecified; Overweight (BMI 25.0-29.9); Bipolar 1 disorder ([facility])Start: 06-02-2024 End: 68-62-9259Kzxydno encounter xasyfmhfn47/14/2024 8:40 AM EST Office Visit [facility] [place] [address] [place] [address] Jim Wilde NP [address] [place], [place] [address] NOMS [facility] ROUTEStart: 05-05-2024 End: 24-19-3303AR Brain WO and W contrast IVMR brain w and wo contrast routine Imaging Routine Ataxia Expected: 05/05/2024, Expires: 05/05/2025[facility] Work Phone: comment on above:Expected: 05/05/2024, Expires: 05/05/2025Start: 05-05-2024 End: 14-75-9868Jsaqeox encounter dwsbscqib55/17/2024 8:00 AM EDT Office Visit [facility] [place] [address] [place] [address] Nadia Swift DO [address] [place] [address] Tremor, unspecifiedNOMS VAHE STATE ROUTEComment on above:Tremor, unspecifiedStart: 04-19-2024 End: 40-21-4456Aaaizkf encounter cpkehfcul14/01/2024 11:00 AM EDT Office Visit [facility] [address] [place] [address] Georgia Davey NP [address] [place] [address] [facility]MOUNT[facility] CWM FMComment on above:ArrivedStart: 03-20-2024 Covid-19 Vaccine ( season)Covid-19 Vaccine ( season) [facility]: 09-11-2023 End: 57-14-5677Lwieohi encounter uqdytfatp11/23/2024 10:45 AM EST Office Visit [facility] [address] [facility] [address] [place] [address] Gio Nova PA [address] [place] [address] NOMS CI ORTHOPAEDICSStart: 09-11-2023 End: 16-62-8030jgleuhkwqu31/23/2024 9:30 AM EST Treatment [facility] CI PT [address] [facility] [address] [place] [address] Gaudencio Solomon PTANOMS CI PTStart: 09-09-2023 End: 78-21-4311emsudcfhxe24/21/2024 11:00 AM EST Treatment NOM[facility] CI PT [address] [facility] [address] [place] [address] Mikey Wilson, PT [address] [facility] [address] [place] [address] NOMS CI PTStart: 09-08-2023 End: 30-14-9474Slbzlva encounter ryonhqpuv09/20/2024 9:00 AM EST Office Visit [facility] [address] [place] [address] Georgia Davey, JA [address] [place] [address] NOMS CWM FMStart: 09-07-2023 End: 81-00-2875gmyfjxfjukFTYE CI PTStart: 09-07-2023 End: 15-57-1989Sdabaxm encounter jmnlgywyh05/19/2024 10:00 AM EST Office Visit [facility] [address] [facility] [address] [place] [address] Gio Nova PA [address] [facility] [address] [place] [address] NOMS CI ORTHOPAEDICSStart: 09-04-2023 End: 63-05-6259fhfrucrgwh00/16/2024 11:00 AM EST Treatment NOMS CI PT [address] [facility] [address] [place] [address] Gaudencio Solomon PTANOMS CI PTStart: 09-02-2023 End: 22-98-7396egpqeczswcWHGI CI PTStart: 08-31-2023 End: 15-20-9985ypsbiisogxNBFP CI PTComment on above:ArrivedStart: 08-28-2023 End: 26-22-1752ypqnhcyrom23/09/2024 11:00 AM EST Treatment N[facility] CI PT [address] [facility] [address] [place] [address] Gaudencio Solomon PTANOMS CI PTStart: 08-26-2023 End: 27-83-7542eptgjxpuxwWTZP CI PTComment on above:Internal derangement of right shoulder (Primary Dx); S/P arthroscopy of right shoulderStart: 08-24-2023 End: 57-76-9152oldufoogze94/05/2024 10:00 AM EST Treatment NOMS CI PT [address] [facility] [address] [place] [address] Desire Maza PTA ArrivedNOMS CI PTComment on above:ArrivedStart: 29-03-1133Svnwghntl vaccinationInfluenza Vaccine (#1)NOMS HealthcareStart: 99-97-4881Hkptz panel Lipid ScreeningDiley Ridge Medical Centertart: 96-62-2064SKA Vaccine (1 - 3-dose SCDM series)HPV Vaccine (1 - 3-dose SCDM series)[facility]art: 95-74-7401KKV Vaccines (1 - 3-dose SCDM series)HPV Vaccines (1 - 3-dose SCDM series)NOM HealthcareStart: 97-02-2568Gqdnebknw B Vaccine (1 of 3 - 19+ 3-dose series) Hepatitis B Vaccine (1 of 3 - 19+ 3-dose series)[facility] Cent[facility]art: 20-36-2467Nfgzkrvxj B Vaccines (1 of 3 - 19+ 3-dose series)Hepatitis B Vaccines (1 of 3 - 19+ 3-dose series)NOM HealthcareStart: 79-97-9676Qupfd microalbumin profileDTaP,Tdap,Td Vaccine (1 - Tdap)[facility] Centertart: 40-29-7632Ptxwjhc ScreeningAnxiety ScreeningDiley Ridge Medical Centertart: 45-50-1618Ivoybibipv Screening Depression ScreeningDiley Ridge Medical Centertart: 37-21-5874Moolovdmn C screening Hepatitis C ScreeningDiley Ridge Medical Centertart: 26-87-6057EKK screeningHIV Screening [facility] Centertart: 98-80-5964[place] of varicella vaccinationVaricella Vaccines (1 of 2 - 13+ 2-dose series)NOM HealthcareStart: 1989 DTaP/Tdap/Td Vaccines (1 - Tdap)DTaP/Tdap/Td Vaccines (1 - Tdap)[facility] Start: 24-51-0208EJL Vaccines (1 of 1 - Standard series)MMR Vaccines (1 of 1 - Standard series)[facility] Healthcare Payers DatePayer CategoryPayerPolicy [id number] Health Insurance [id number] [employer] [id number] 2022-Present [phone] [address] [address] [place] [id number] [id number] 2.16.840.1.153497.3.579.2. [id number] 2..1.312539.3.579.2.36363-47-6320Tyvgpmt8653214 2..1.824865.3.579.2.21191-18-2605Fqotfht9533714 2..1.114369.3.57[id number] 2..1.361880.3.579.2.044687-91-6550Qmjvxjw96764624 2..1.311104.3.579.2.[id number] 2..1.109174.3.579.2.217100-78-8169Svsuyjp13075695 2..1.479705.3.579.2.669106-86-5148Jmlwebr4693730 2..1.145777.3.579.2.381248-46-4979Wbjmqkh8150111 2..1.036558.3.579.2.856145-55-4471Droqlsf4361050 2..1.011213.3.579.2.658030-45-6799Xxxjjpn6908565 2..1.077537.3.579.2.842343-65-2769Tmmarmk2575921 2..1.157319.3.579.2.551191-43-5031Wxgcrfd0902943 2..1.997275.3.579.2.990094-36-6279Bjfqtsq8664799 2..1.378697.3.579.2.931513-70-8603Pdqntsu7357628 2..1.735444.3.579.2.106336-43-6439Xwddmzb7830667 2..840.1.011816.3.579.2.433686-95-1323Vhifcsk1263260 2.16.840.1.959935.3.579.2.810161-19-0049Njerhyx4991102 2.16.840.1.477716.3.579.2.700673-61-8708Irfllxc4103169 2.16.840.1.198297.3.579.2.219198-13-3330Naxpvsl6102886 2..840.1.207174.3.579.2.601665-43-3530Tqlnive7213579 2..840.1.755907.3.579.2.528256-12-8345Xdhbvnv6832892 2.0.1.361962.3.579.2.320322-61-8612Bucrebo02084791 2..840.1.479252.3.579.2.93830-24-2327Gljh-uhw34734550974-64-2370Lpfiwxx [id number] Social History DateTypeDetailFacilityStart: 03-16-2023 End: 60-55-4185Gjhgokk smoking status NHISNever smoked tobaccoNOMS Healthcare Start: 08-07-2023 End: 82-62-1091Bqhdjve intakeCurrent drinker of alcohol (finding)[facility] Start: 05-27-2023 End: 16-84-2991Flhdyca of Social functionNOMS HealthcareStart: 05-27-2023 End: 33-65-2082Dbpvrit Use Disorder Identification Test - Consumption [AUDIT-C] NOMS HealthcareHow often to you have a drink containing alcohol?Monthly or less NOMS HealthcareHow many standard drinks containing alcohol do you have on a typical day?1 or 2NOMS HealthcareHow often do you have 6 or more drinks on 1 occasion?NeverNOMS HealthcareStart: 22-60-5490Xsavfov Comment1-2 drinks, monthly or less.[facility] HealthcareStart: 08-08-9310Sry Assigned At BirthNot on fileNOMS HealthcareStart: 03-16-2023 End: 43-28-1366Gracnsy intakeEx-drinker (finding)[facility] HealthcareStart: 05-17-2023 End: 62-82-6817Cijtmhrg to SARS-CoV-2 (event)Not sureNOMS HealthcareStart: 10-01-2022 End: 82-39-5465Qm you belong to any clubs or organizations such as alevism groups, unions, fraternal or athletic groups, or school groups?Patient declined [facility] HealthcareAre you now , , , [...] or rent on time?NoNOMS HealthcareStart: 06-22-2024 End: 47-86-0254Lrlywbc use and exposureSmokeless tobacco non-userNOMS Healthcare Start: 28-19-5455Ztlccqkra94NRUI HealthcareStart: 85-81-7651Mpprqzc Comment caffiene- 3 sweet tea and occasion popNOMS HealthcareStart: 63-57-1566Jjgijlr CommentrareCleveland ClinicSexual OrientationExecutive Urology of The [facility] Hospital sexMale (finding)[facility] Functional Status JkahTawrqyamyfObqxtsVfomvjti88-58-3552Fdk difficult have these problems made it for you to do your work, take care of things at home, or get along with other people?Very difficult 10/19/2024 7:52 AM Juliana Josue LPN Very difficult [facility] HospitalIzfhmejyux42-15-8476Mtrmbzfdnuq anxiety disorder 7 item (SAMRA-7)[facility] HospitalOwobitpibg10-34-9741Hfnyjhl Health Questionnaire 2 item (PHQ-2) [Reported][facility] HospitalSyihpiynke50-60-2257AVF-4 quick depression assessment panel [Reported.PHQ][facility] HospitalJsxqyofqpp28-40-5482Tolno score [AUDIT-C]1 06/22/2024 8:16 AM Juliana Daniels LPNNOMS Zonhurmhnl28-70-4387Qvrafnn Health Questionnaire 2 item (PHQ-2) [Reported][facility] HospitalRigodvjitd48-97-3198QET-6 quick depression assessment panel [Reported.PHQ][facility] Clinical Notes 08-31-2023 to 05-08-2025 Note Date & AnkkEvcvYzouwuab41-90-4242 Hospital Discharge instructions Patient Education 05/08/2025 15:13:48 [...] Follow these instructions at home: Medicines Take fkuv-zxx-thrffak and prescription medicines only as told by [...] actions to prevent or treat constipation: ?Take titf-alr-pktkaxx or prescription medicines. ?Eat foods that are [...] last for up to 1 week. Take zhxj-dne-sxukihg and prescription medicines only as told by [...] provider. Document Revised: 08/11/2022 Document Reviewed: 08/11/2022 [employer] Patient Education 2023 [employer]. 05/08/2025 15:13:47 Ureteral Stent Implantation Ureteral Stent [...] including vitamins, herbs, eye drops, creams, and kqhr-vwc-zdjjchp medicines. Any problems you or family members [...] health care provider tells you to. Taking kepu-xpb-gksunfk medicines, vitamins, herbs, and supplements. When to [...] provider. Document Revised: 08/11/2022 Document Reviewed: 08/11/2022 [employer] Patient Education 2023 [employer]. 05/08/2025 15:13:43 Laser Therapy for Kidney Stones, [...] Follow these instructions at home: Medicines Take vtwe-lwd-uabpwyx and prescription medicines only as told by [...] to keep your pee pale yellow. ?Take eqne-jhr-oegrnlu or prescription medicines. ?Eat foods that are [...] provider. Document Revised: 03/06/2023 Document Reviewed: 03/06/2023 [employer] Patient Education 2023 [employer]. 05/08/2025 15:13:42 Laser Therapy for Kidney Stones [...] including vitamins, herbs, eye drops, creams, and djjt-nzk-ofdaaos medicines. Any problems you or family members [...] unless your provider tells you to. ?Taking sxmz-ssb-tsxlrca medicines, vitamins, herbs, and supplements. Tests You [...] provider. Document Revised: 03/06/2023 Document Reviewed: 03/06/2023 [employer] Patient Education 2023 [employer]. Follow Up Care 04/14/2025 13:58:00 With:SADE MEI, [place], URL Address: [address] [place] [phone] When: Unknown Comments:sched cysto, L URS, laser litho, poss stent placement [facility] 10-20-2025 NoteUrology Office/Clinic Note Chief Complaint [...] kidney stone. 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 1. Kidney stones (N20.0: Calculus of kidney) [...] MD, URL [address] [place] [address] [place] [address] Additional Instructions: sched cysto, L URS, laser [...] History Ongoing Ataxia B (more content not included)...[facility]: Result Comment: Electronically Signed By: Taras STUART MD\.br\Date and Time Signed: 05/08/25 15:24 EDT\.br\Electronically Co-Signed By: Misty Pablo\.br\Date and Time Co-Signed: 05/08/25 15:22 [id number] NotePatient Education Nephrology Laser Therapy for Kidney [...] these instructions at home: Medicines ??? Take frsi-anv-aiifzfh and prescription medicines only as told by [...] keep your pee pale yellow. ? Take zokv-idm-mhvtykn or prescription medicines. ? Eat foods that [...] provider. Document Revised: 03/06/2023 Document Reviewed: 03/06/2023 [employer] Patient Education ? 2023 [employer]. Laser Therapy for Kidney Stones Laser therapy [...] including vitamins, herbs, eye drops, creams, and gtdu-ejp-feseyyp medicines. ??? Any problems you or family [...] eat and drink. Thes (more content not included)...[facility]10[facility]10-2025 NoteHNO ID: [id number] Author: MYRIAM LUIS PT Service: ? Author Type: Physical Therapist Type: Progress Notes Filed: 04/28/2025 12:38 Note Text: 04/28/2025 [facility] THERAPY PHYSICAL THERAPY [...] scheduled additional follow-up appointments. Myriam Luis, PT, DPTCLakeHealth [facility]09-10-[facility] History of Present illness Narrative* ISMAEL Worely - 03/29/2025 8:20 AM EDT Rx [facility] documented in this encounterCedar County Memorial HospitalMsysryrcem37-12-6515 History of Present illness Narrative* ISMAEL Worley - 03/29/2025 8:00 AM EDT Images from the original note were not included. HPI: Tahira Agustin is a 44 y.o. male with a history of bipolar affective disorder, MDD, SAMRA, tremors, and tardive dyskinesia. Patient is here today for follow-up via telehealth. Location of patient: Home; located in [place] Location of provider: Office; located in [place], [place] Patient seen via: [facility]; audio and video utilized Reason for [...] multiple sclerosis Hx of psychiatric hospitalization [facility] 1 south in his [...] care as described above. documented in this encounterCedar County Memorial HospitalSdiwozbyci99-31-5161 History of Present illness Narrative* ISMAEL Worley [...] better assessment. [facility] 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 He states if he gets this, he will be doing 4 years of swing shift and schooling to get his [employer] card. He states stress has decreased at [...] multiple sclerosis Hx of psychiatric hospitalization [facility] 1 south in his [...] to follow with specialists at [facility] for additional care of his [...] care as described above. documented in this encounterCedar County Memorial HospitalZpezkkfptm38-10-4079 NoteHNO ID: [id number] Author: MYRIAM LUIS PT Service: ? 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, physical [...] UE Strength: Grossly 5/5 Hand Strength R Coordinator Volunteer Services Position 1 (lbs): 90 lbs R Coordinator Volunteer Services Position 2 (lbs): 90 lbs L Coordinator Volunteer Services Position 1 (lbs): 105 lbs L Coordinator Volunteer Services Position 2 (lbs): 110 lbs LE Strength [...] Education on benefits o (more content not included)...[facility]07-31-2025 History of Present illness Narrative* Myriam Luis, [...] Planned: 1 Planned Treatment Interventions: Therapeutic exercise (82550), Neuromuscular re- education (82633), Manual therapy (27116), Therapeutic activities (89092), Self- senior living management (29494), Gait Training (27375), Patient/Family/Caregiver Education, Body Mechanics Training, Functional training, [...] with patient no issues were identified 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 Author Type: Physician Type: Progress Notes Filed: 03/06/2025 22:38 Note Text: [facility] Clinical Health Psychology Evaluation Time of Service: [...] Social History: Mr. Agustin was raised in [place]. He has one half brother who is [...] is recommended that the (more content not included)...[facility]07-30-2025 History of Present illness Narrative* Stevo Garcia PSYD - 02/15/2025 8:05 AM EDT [facility] Clinical Health Psychology Evaluation Time of Service: [...] were discussed. Identification and Presenting Problem: Mr. Agusitn is a 44 year old male who was referred by Dr. 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 He presents with a history of involuntary movement symptoms. Symptom onset: 1 year Most bothersome symptoms: tremor Aggravating factors: stress Alleviating factors: distraction Social History: Mr. Agustin was raised in [place]. He has one half brother who is [...] Stevo Garcia Psy.D. Staff, [facility] documented in this encounterUniversity [facility]07-[facility]-2025 Telephone encounter Note * Telephone Encounter - Deana Betancourt RN - 02/03/2025 11:54 AM EDT FMD welcome message emailed to patient. [facility]07-18-2025 Miscellaneous Notes* Telephone Encounter - Deana Betancourt RN - 02/03/2025 11:54 AM EDT FMD welcome message emailed to patient. documented in this encounterUniversity Hospitals Cleveland [facility] Center07-18-2025 Instructions* Patient Instructions* Olena Gomez MD - [...] If urgent issues arise, contact us via [employer] for guidance or to schedule an earlier [...] these. Physical, Occupational, and/or Speech Therapy Call: [phone] or schedule through a ticket in [employer]. Psychology Therapy Call: [phone], ask to be scheduled with Dr. Shirin Morgan, Dr. Elizabeth Barrera, or Dr. Stevo Garcia. Virtual Shared Medical Appointment for FMD Education Call: [phone] or schedule through a ticket in [employer] Follow-up with Cheyenne Ortiz PA-C, who will help support you through your care. Call: [phone] or schedule through a ticket in [employer]. How can I learn more about FND? www.neurosymptoms.org www.fndhope.org documented in this encounterUniversity [facility]als [facility] Center07-18-2025 History of Present illness Narrative* Willow Ramos [...] tardive dyskinesia and tremor. He is from [facility] and follows with a local psychiatry team. Chart Review: Per records he is currently on fluoxetine, lamotrigine, propranolol, and valbenazine. He saw his psychiatry TUTOR on 01/25/2025 where he asked for a [...] note at this visit he observed abnormal ntnjxm-xf-wkhg testing indicating ataxia for which MRI brain [...] Plantar: downgoing Left Plantar: downgoing Coordination Right: Isjrgl-bg-wfyi normal. Rapid alternating movement normal. Jnrl-yc-emlw normal.Left: Psedxj-hn-ygrm normal. Rapid alternating movement normal. Wsns-kq-zdkz normal. Mild tremulousness in BL hands (L>R) [...] Associate Staff Movement disorders [facility] Olena Gomez MD MS Movement Disorder Fellow, PGY-6 [facility] documented in this encounterUniversity Hospitals Cleveland [facility] Center07-18-2025 NoteHNO ID: [id number] Author: WILLOW RAMOS MD Service: ? Author [...] tardive dyskinesia and tremor. He is from [facility] and follows with a local psychiatry team. Chart Review: Per records he is currently on fluoxetine, lamotrigine, propranolol, and valbenazine. He saw his psychiatry TUTOR on 01/25/2025 where he asked for a [...] note at this visit he observed abnormal mtpnof-ep-snef testing indicating ataxia for which MRI brain [...] cough Genitourinary: (+) n (more content not included)...[facility] 01-25-2025 History of Present illness Narrative* Kwame [...] went on vacation with his family to [place], [place]. He states he was able to drive down there and back without any issues or exacerbation of his tremors. He is seeing movement disorder specialist at [facility] on February 03. He is [...] multiple sclerosis Hx of psychiatric hospitalization [facility] 1 south in his [...] Prozac. He is meeting with [facility] movement disorder specialist on February [...] care as described above. documented in this encounterCedar County Memorial HospitalFqipovrhha25-00-4315 History of Present illness Narrative* Georgia Davey [...] has an appt with movement specialist at [facility] on 02/03/25 SUBJECTIVE: MEDICATIONS: Current Outpatient [...] multiple sclerosis Hx of psychiatric hospitalization [facility] 1 south in his [...] eats since no gallbladder documented in this encounterCedar County Memorial HospitalKqlbacudku68-38-3282 History of Present illness Narrative* Kwame Rodríguez, [...] a movement disorder specialist at [facility] on February 03. SUBJECTIVE: PAST MEDICAL HISTORY: Past Medical History: Diagnosis Date Arthralgia Asymptomatic microscopic hematuria Bipolar disorder Bursitis of shoulder, right Cyst of tendon sheath Dyspnea 09/08/2023 Family history of multiple sclerosis Hx of psychiatric hospitalization [facility] 1 south in his [...] Davey NP as Referring Physician (Family Medicine) IMSAEL Worley as Nurse Practitioner (Behavioral Health) Nadia Swift DO as Neurologist (Neurology) Armen Hernández LPC as Engine Room Operator (Behavioral Health) PSYCHIATRIC REVIEW OF SYMPTOMS [...] they will keep appointment with [facility] that is scheduled in January. [...] care as described above. documented in this encounterCedar County Memorial HospitalTdrjptzwab60-94-7216 History of Present illness Narrative* ISMAEL Worley [...] multiple sclerosis Hx of psychiatric hospitalization [facility] 1 south in his [...] NP as Referring Physician (Family Medicine) [facility] as [facility] Practitioner (Behavioral Health) Nadia Swift DO as Neurologist (Neurology) Armen Hernández LPC as Engine Room Operator (Behavioral Health) PSYCHIATRIC REVIEW OF SYMPTOMS [...] orders for this visit: Bipolar 2 disorder (CMS/[facility]) - lamoTRIgine (LaMICtal) 25 MG tablet; Take 2 tablets (50 mg) by mouth Daily SAMRA (generalized anxiety disorder) (CMS/[facility]) Tardive dyskinesia Tremor - propranolol LA (Inderal [...] care as described above. documented in this [facility]04-02-2025 History of Present illness Narrative* ISMAEL Worley [...] multiple sclerosis Hx of psychiatric hospitalization [facility] 1 [facility] in his 20s Lumbar back pain [...] as Neurologist (Neurology) Armen Hernández LPC as Engine Room Operator (Behavioral Health) PSYCHIATRIC REVIEW OF SYMPTOMS [...] mg by mouth Daily Bipolar 2 disorder (CMS/[facility]) - lamoTRIgine (LaMICtal) 25 MG tablet; Take 1 tablet (25 mg) by mouth Daily for 14 days, THEN 2 tablets (50 mg) Daily for 14 days. SAMRA (generalized anxiety disorder) (CMS/[facility]) Treatment Plan/Recommendations: - Increase Ingrezza to 60 [...] care as described above. documented in this encounterCedar County Memorial HospitalGwwjoivpgm24-80-1472 Telephone encounter Note* Telephone Encounter - ISMAEL Worley - 10/17/2024 10:18 AM EDT Spoke to patient. He stopped Caplyta on Thursday. Reports that side effects have improved a little but still having some. He is agreeable to come in Thursday to follow-up. Informed him to stay off Caplyta until we see him. Patient verbalized understanding. [facility] Memorial HospitalWtggmeuplq03-22-4394 Miscellaneous Notes* Telephone Encounter - ISMAEL Worley - 10/17/2024 10:18 AM EDT Spoke to patient. He stopped Caplyta on Thursday. Reports that side effects have improved a little but still having some. He is agreeable to come in Thursday to follow-up. Informed him to stay off Caplyta until we see him. Patient verbalized understanding. * Telephone Encounter - Kirsten Mckeon - 10/17/2024 [...] is still experiencing symptoms. documented in this encounterCedar County Memorial HospitalFbxtoitkdu71-70-7432 Telephone encounter Note* Telephone Encounter - Kirsten [...] 10/14 and is still experiencing symptoms. [facility] [id number] History of Present illness Narrative* Kwame Rodríguez, [...] of multiple sclerosis Hx of psychiatric hospitalization [address] in his 20s Lumbar back pain [...] as Neurologist (Neurology) Armen Hernández LPC as Engine Room Operator (Behavioral Health) PSYCHIATRIC REVIEW OF SYMPTOMS [...] orders for this visit: Bipolar 2 disorder ([facility]) - Lumateperone Tosylate (Caplyta) 10.5 MG capsule; [...] care as described above. documented in this encounterCedar County Memorial HospitalMoboiwxlzr51-64-6102 History of Present illness Narrative* Kwame Rodríguez [...] multiple sclerosis Hx of psychiatric hospitalization [facility] 1 south in his [...] PHQ-2 Score: 0 Patient Care Team: Montrell Serraon MD as PCP - General (Family Medicine) [...] to age Memory/Concentration Short term intact and moth exterminator intact Insight/Judgement Good OBJECTIVE: Visit Vitals BP [...] care as described above. documented in this encounterCedar County Memorial HospitalHexlngplja46-26-2264 History of Present illness Narrative* Kwame Rodríguez [...] to age Memory/Concentration Short term intact and moth exterminator intact Insight/Judgement Fair OBJECTIVE: Visit Vitals BP [...] orders for this visit: Bipolar 2 disorder ([facility]) Tardive dyskinesia Treatment Plan/Recommendations: - Stop Austedo [...] care as described above. documented in this encounterCedar County Memorial HospitalZzjourqink20-66-0922 History of Present illness Narrative* Jn Mccullough, [...] multiple sclerosis Hx of psychiatric hospitalization [facility] 1 south in his [...] you, Kelly Mccullough DO documented in this [facility]12-04-2024 History of Present illness Narrative* Kwame Rodríguez [...] He states he is transferring care to [facility] because his previous psychiatric provider left [...] has never done therapy. Reports seeing De[facility] prior to her leaving. Reports doing his [...] he was hospitalized in 20s at [facility] and that is when [...] grandmother earlier this year. Education: Graduated from [employer]. Reports being bullied his entire life. States he alsowent to [employer] and did some college classes after high [...] Arthralgia Asymptomatic microscopic hematuria Bipolar 1 disorder ([facility]/HCC) 09/08/2023 Bursitis of shoulder, right Cyst of tendon sheath Dyspnea 09/08/2023 Family history of multiple sclerosis Hx of psychiatric hospitalization [address] in his 20s Lumbar back pain [...] upcoming December. 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 Reports marriage is good. Children: None Living situation: Lives with . Reports his djmzpd-si-evp and niece temporarily moved in with them recently Occupation: Has been working at [employer] for the past 11-12 years. Has been [...] to age Memory/Concentration Short term intact and moth exterminator intact Insight/Judgement Good OBJECTIVE: Visit Vitals BP [...] orders for this visit: Bipolar 2 disorder ([facility]) - ARIPiprazole (Abilify) 10 MG tablet; Take [...] the local ER or call Suicide Hotline (261) for any psychosis, suicidal or homicidal ideation, [...] care as described above. documented in this encounterCedar County Memorial HospitalNoohypvuyu70-19-0312 History of Present illness Narrative* Georgia Davey [...] 6:16 AM ESTAssociated Problem(s): Bipolar 1 disorder ([facility]) Will have pt continue to follow with Psych provider for management of symptoms * Georgia Davey NP - 06/13/2024 6:15 AM ESTAssociated Problem(s): Tremor, unspecified Had evaluation with neurology , also had MRI I have reviewed the MRI brain w and w/o: normal Reviewed Neurology notes as well documented in this [facility]11-25-2024 Instructions* Patient Instructions* Georgia Davey NP - 06/13/2024 9:00 AM EST Trial lotrisone cream twice a day for 4 weeks, if not better call office documented in this [facility]11-14-2024 History of Present illness Narrative* Jim Wilde [...] more locally. He has been traveling from [place] to [place]. He states that his Abilifywas reduced as [...] Arthralgia Asymptomatic microscopic hematuria Bipolar 1 disorder ([facility]) 09/08/2023 Bursitis of shoulder, right Cyst of [...] , wrist extensors , wrist flexor , lace burn out tender strength 5/5. LUE Strength deltoid , biceps , triceps , wrist extensors , wrist flexor , lace burn out tender strength 5/5. RLE Strength illopsoas, quadriceps, tibialis [...] the brain with and without contrast at [facility] on 05/18/24: Unremarkable brain MRI performed [...] normal. PLAN: - Referral to psychiatry at [facility] in [place] per patient request - We have discussed [...] plan, and return instructions documented in this encounterCedar County Memorial HospitalRxkxcmknxq47-13-2317 History of Present illness Narrative* Nadia Swift, - 05/05/2024 8:00 AM EDT Images from the original note were not included. Chief Complaint Patient presents with Tremors Subjective Tahira Agustin, 43 y.o., male Patient is here with tremors. 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 LUE Strength deltoid , biceps , triceps , wrist extensors , wrist flexor , lace burn out tender strength 5/5. RLE Strength illopsoas, quadriceps, tibialis [...] my impression that the patient has abnormal dlxbrc-eq-sbvt testing indicating ataxia. The patient is 43 [...] plan, and return instructions documented in this encounterCedar County Memorial HospitalSkmqxrwkfn19-58-1277 History of Present illness Narrative* Georgia Davey [...] Arthralgia Asymptomatic microscopic hematuria Bipolar 1 disorder ([facility]) 09/08/2023 Pt has a hx of bipolar [...] Ambulatory referral to Neurology documented in this encounterCedar County Memorial HospitalKpcizwhaaz53-99-5219 History of Present illness Narrative* Mikey Wilson, [...] to don/doff sling Extracurricular Activities: Golf 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 Good compliance with use of sling Functional Limitations: 28/80 points, 65% impairment Custodial Goals: AA/AROM R shoulder to 160 flexion [...] below. 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 Good compliance with use of sling Functional Limitations: 28/80 points, 65% impairment Calender Machine Operator Goals: AA/AROM R shoulder to 160 flexion [...] below. Physician Signature: Date: [facility] Healthcare[facility] + Plan note No data available for this section [facility] evaluation note* Diagnosis Internal derangement of right shoulder- Primary S/P arthroscopy of right shoulder documented in this encounter [facility] HealthcareEvaluation note* Diagnosis Internal derangement of right shoulder- Primary S/P arthroscopy of right shoulder documented in this encounter [facility] HealthcareEvaluation note* Diagnosis Internal derangement of right shoulder- Primary S/P arthroscopy of right shoulder documented in this encounter [facility] HealthcareEvaluation note* Diagnosis Tremor, unspecified- Primary Overweight (BMI 25.0-29.9) Overweight documented in this encounter [facility] HealthcareEvaluation note* Diagnosis Dyspnea, unspecified type- Primary Wheezing Bipolar 1 disorder (CMS/HCC) Overweight (BMI 25.0-29.9) Overweight Dyspnea, unspecified type- Primary Overweight (BMI 25.0-29.9) Overweight Bipolar 1 disorder (CMS/HCC) Dyspnea, unspecified type- Primary Overweight (BMI 25.0-29.9) Overweight Tremor, unspecified- Primary Overweight (BMI 25.0-29.9) Overweight Ataxia- Primary Lack of coordination Tremor, unspecified Tardive dyskinesia Subacute dyskinesia due to drugs documented in this encounter [facility] HealthcareEvaluation note* Diagnosis Dyspnea, unspecified type- Primary Wheezing Bipolar 1 disorder ([facility]/HCC) Overweight (BMI 25.0-29.9) Overweight Dyspnea, unspecified type- Primary Overweight (BMI 25.0-29.9) Overweight Bipolar 1 disorder ([facility]/HCC) Dyspnea, unspecified type- Primary Overweight (BMI 25.0-29.9) Overweight Tremor, unspecified- Primary Overweight (BMI 25.0-29.9) Overweight Tardive dyskinesia- Primary Subacute dyskinesia due to drugs Tremor, unspecified documented in this encounter [facility] HealthcareEvaluation note* Diagnosis Dyspnea, unspecified type- Primary Wheezing Bipolar 1 disorder ([facility]/HCC) Overweight (BMI 25.0-29.9) Overweight Dyspnea, unspecified type- Primary Overweight (BMI 25.0-29.9) Overweight Bipolar 1 disorder ([facility]/HCC) Dyspnea, unspecified type- Primary Overweight (BMI 25.0-29.9) Overweight Tremor, unspecified- Primary Overweight (BMI 25.0-29.9) Overweight Encounter for wellness examination in adult- Primary Tremor, unspecified Overweight (BMI 25.0-29.9) Overweight Bipolar 1 disorder ([facility]) Rash Rash and other nonspecific skin eruption documented in this encounter [facility] HealthcareEvaluation note* Diagnosis Dyspnea, unspecified type- Primary Wheezing Bipolar 1 disorder ([facility]/HCC) Overweight (BMI 25.0-29.9) Overweight Dyspnea, unspecified type- Primary Overweight (BMI 25.0-29.9) Overweight Bipolar 1 disorder ([facility]) Dyspnea, unspecified type- Primary Overweight (BMI 25.0-29.9) Overweight Tremor, unspecified- Primary Overweight (BMI 25.0-29.9) Overweight Encounter for wellness examination in adult- Primary Tremor, unspecified Overweight (BMI 25.0-29.9) Overweight Bipolar 1 disorder ([facility] [facility] Rash Rash and other nonspecific skin eruption Rectal bleeding Hemorrhage of rectum and anus Bipolar 2 disorder ([facility]) Other bipolar disorders Tardive dyskinesia Subacute dyskinesia due to drugs documented in this encounter [facility]* Diagnosis Dyspnea, unspecified type- Primary Wheezing Bipolar 1 disorder ([facility]) Overweight (BMI 25.0-29.9) Overweight Dyspnea, unspecified type- Primary Overweight (BMI 25.0-29.9) Overweight Bipolar 1 disorder ([facility]) Dyspnea, unspecified type- Primary Overweight (BMI 25.0-29.9) Overweight Tremor, unspecified- Primary Overweight (BMI 25.0-29.9) Overweight Encounter for wellness examination in adult- Primary Tremor, unspecified Overweight (BMI 25.0-29.9) Overweight Bipolar 1 disorder ([facility]) Rash Rash and other nonspecific skin eruption Rectal bleeding Hemorrhage of rectum and anus Rectal bleeding- Primary Hemorrhage of rectum and anus documented in this encounter [facility]* Diagnosis Dyspnea, unspecified type- Primary Wheezing Bipolar 1 disorder ([facility]) Overweight (BMI 25.0-29.9) Overweight Dyspnea, unspecified type- Primary Overweight (BMI 25.0-29.9) Overweight Bipolar 1 disorder ([facility]) Dyspnea, unspecified type- Primary Overweight (BMI 25.0-29.9) Overweight Tremor, unspecified- Primary Overweight (BMI 25.0-29.9) Overweight Encounter for wellness examination in adult- Primary Tremor, unspecified Overweight (BMI 25.0-29.9) Overweight Bipolar 1 disorder ([facility]) Rash Rash and other nonspecific skin eruption Rectal bleeding Hemorrhage of rectum and anus Bipolar 2 disorder ([facility]) Other bipolar disorders Tardive dyskinesia Subacute dyskinesia due to drugs documented in this encounter [facility]* Diagnosis Dyspnea, unspecified type- Primary Wheezing Bipolar 1 disorder ([facility]) Overweight (BMI 25.0-29.9) Overweight Dyspnea, unspecified type- Primary Overweight (BMI 25.0-29.9) Overweight Bipolar 1 disorder ([facility]) Dyspnea, unspecified type- Primary Overweight (BMI 25.0-29.9) Overweight Tremor, unspecified- Primary Overweight (BMI 25.0-29.9) Overweight Encounter for wellness examination in adult- Primary Tremor, unspecified Overweight (BMI 25.0-29.9) Overweight Bipolar 1 disorder ([facility]) Rash Rash and other nonspecific skin eruption Rectal bleeding Hemorrhage of rectum and anus Bipolar 2 disorder ([facility]) Other bipolar disorders Tardive dyskinesia Subacute dyskinesia due to drugs documented in this encounter [facility]* Diagnosis Dyspnea, unspecified type- Primary Wheezing Bipolar 1 disorder ([facility]) Overweight (BMI 25.0-29.9) Overweight Dyspnea, unspecified type- Primary Overweight (BMI 25.0-29.9) Overweight Bipolar 1 disorder ([facility]) Dyspnea, unspecified type- Primary Overweight (BMI 25.0-29.9) Overweight Tremor, unspecified- Primary Overweight (BMI 25.0-29.9) Overweight Encounter for wellness examination in adult- Primary Tremor, unspecified Overweight (BMI 25.0-29.9) Overweight Bipolar 1 disorder ([facility]) Rash Rash and other nonspecific skin eruption Rectal bleeding Hemorrhage of rectum and anus Bipolar 2 disorder ([facility]) Other bipolar disorders documented in this encounter [facility]* Diagnosis Dyspnea, unspecified type- Primary Wheezing Bipolar 1 disorder ([facility]) Overweight (BMI 25.0-29.9) Overweight Dyspnea, unspecified type- Primary Overweight (BMI 25.0-29.9) Overweight Bipolar 1 disorder ([facility]) Dyspnea, unspecified type- Primary Overweight (BMI 25.0-29.9) Overweight Tremor, unspecified- Primary Overweight (BMI 25.0-29.9) Overweight Encounter for wellness examination in adult- Primary Tremor, unspecified Overweight (BMI 25.0-29.9) Overweight Bipolar 1 disorder ([facility]) Rash Rash and other nonspecific skin eruption Rectal bleeding Hemorrhage of rectum and anus Bipolar 2 disorder ([facility]) Other bipolar disorders Tardive dyskinesia Subacute dyskinesia due to drugs Tremor Abnormal involuntary movements documented in this encounter [facility]* Diagnosis Dyspnea, unspecified type- Primary Wheezing Bipolar 1 disorder ([facility]) Overweight (BMI 25.0-29.9) Overweight Dyspnea, unspecified type- Primary Overweight (BMI 25.0-29.9) Overweight Bipolar 1 disorder ([facility]) Dyspnea, unspecified type- Primary Overweight (BMI 25.0-29.9) Overweight Tremor, unspecified- Primary Overweight (BMI 25.0-29.9) Overweight Encounter for wellness examination in adult- Primary Tremor, unspecified Overweight (BMI 25.0-29.9) Overweight Bipolar 1 disorder ([facility]) Rash Rash and other nonspecific skin eruption Rectal bleeding Hemorrhage of rectum and anus Tardive dyskinesia Subacute dyskinesia due to drugs Bipolar 2 disorder ([facility]) Other bipolar disorders SAMRA (generalized anxiety disorder) ([facility]) Generalized anxiety disorder documented in this encounter [facility]* Diagnosis Dyspnea, unspecified type- Primary Wheezing Bipolar 1 disorder ([facility]) Overweight (BMI 25.0-29.9) Overweight Dyspnea, unspecified type- Primary Overweight (BMI 25.0-29.9) Overweight Bipolar 1 disorder ([facility]) Dyspnea, unspecified type- Primary Overweight (BMI 25.0-29.9) Overweight Tremor, unspecified- Primary Overweight (BMI 25.0-29.9) Overweight Encounter for wellness examination in adult- Primary Tremor, unspecified Overweight (BMI 25.0-29.9) Overweight Bipolar 1 disorder ([facility]) Rash Rash and other nonspecific skin eruption Rectal bleeding Hemorrhage of rectum and anus Bipolar 2 disorder ([facility]) Other bipolar disorders SAMRA (generalized anxiety disorder) ([facility]) Generalized anxiety disorder Tardive dyskinesia Subacute dyskinesia due to drugs Tremor Abnormal involuntary movements documented in this encounter [facility]* Diagnosis Tremor, unspecified- Primary Overweight (BMI 25.0-29.9) Overweight Encounter for wellness examination in adult- Primary Tremor, unspecified Overweight (BMI 25.0-29.9) Overweight Bipolar 1 disorder ([facility]) Rash Rash and other nonspecific skin eruption Rectal bleeding Hemorrhage of rectum and anus Bipolar 2 disorder ([facility]) Other bipolar disorders SAMRA (generalized anxiety disorder) ([facility]) Generalized anxiety disorder Tremor Abnormal involuntary movements Tardive dyskinesia Subacute dyskinesia due to drugs Current episode of major depressive disorder without prior episode, unspecified depression episode severity ([facility]) documented in this encounter [facility] note* Diagnosis Tremor, unspecified- Primary Overweight (BMI 25.0-29.9) Overweight Encounter for wellness examination in adult- Primary Tremor, unspecified Overweight (BMI 25.0-29.9) Overweight Bipolar 1 disorder ([facility]) Rash Rash and other nonspecific skin eruption Rectal bleeding Hemorrhage of rectum and anus Weight loss, unintentional- Primary Loss of weight Overweight (BMI 25.0-29.9) Overweight Bipolar 2 disorder ([facility]) Other bipolar disorders Tardive dyskinesia Subacute dyskinesia [...] due to drugs documented in this encounter [facility] note* Diagnosis Tremor, unspecified- Primary [...] due to drugs documented in this encounter [facility]* Diagnosis 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 Dyskinesia, tardive Subacute dyskinesia due to drugs 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 Parkinsonism [facility] Diagnosis 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 Dyskinesia, tardive Subacute dyskinesia due to drugs [facility] Diagnosis Tremor, unspecified- Primary [...] Other bipolar disorders documented in this encounter [facility] note* Diagnosis Adjustment disorder with mixed anxiety and depressed mood- Primary 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 Dyskinesia, tardive Subacute dyskinesia due to drugs [facility] Diagnosis Tremor, unspecified- Primary [...] due to drugs documented in this encounter [facility]* Diagnosis Tremor, unspecified- Primary [...] available for this section [facility] reason for referral (narrative)* Consultation (Routine) - Pending ReviewSpecialtyDiagnoses / ProceduresReferred By ContactReferred To ContactNeurology Diagnoses Tremor, unspecified Procedures [place] OFFICE/OUTPATIENT NEW HIGH MDM 60 MINUTES Georgia Davey NP [address] [place] [address] Estefania Sherman NP [address] [place] [address] Ref[facility]Status[facility] DateExpiration DateVisits RequestedVisits [id number] Review Specialty Services Required / [facility]Reason for [facility] Narrative* Consultation (Routine) - Authorized SpecialtyDiagnoses / ProceduresReferred By ContactReferred To ContactPhysical Therapy Diagnoses S/P arthroscopy of right shoulder Procedures [place] OFFICE/OUTPATIENT NEW HIGH MDM 60 MINUTES Gio Nova PA [address] [place] [address] Norah Cardenas, PT [address] [place] [address] Referral IDStatSumma Health DateExpiration DateVisits RequestedVisits [id number] Consult and Treat / [facility] Healthcare Summary Purpose Family History No [...] section and content) DATE CREATED AUTHOR 04/26/2022 [facility] DATE CREATED AUTHOR AUTHOR'S ORGANIZ ATION 03/31/2025 [facility] DATE CREATED AUTHOR AUTHOR'S ORGANIZ ATION 04/30/2025 [facility] DATE CREATED AUTHOR AUTHOR'S ORGANIZ ATION 05/09/2025 [facility] Care Teams (unrecognized sec tion and content) Team MemberRelationshipSpecialtyStart DateEnd Date Montrell Serrano MD [address] [place] [address] [facility] - [facility]08/10/23 Georgia Davey NP [address] [place] [address] Nurse Practitionermily Medicine07/20/22 Georgia Davey NP [address] [place] [address] Referring PhysicianFamily Hiseqnpy25/16/23Team MemberRelationshipSpecialtyStart DateEnd Date Montrell Serrano MD [address] [place] [address] PCP - Generalmily Medicine08/10/23 Georgia Davey NP [address] [place] [address] Nurse PractitionerFamily Medicine07/20/22 Georgia Davey NP [address] [place] [address] Referring Physicianmily Vgzqqdhm51/16/23Team MemberRelationshipSpecialtyStart DateEnd Date Montrell Serrano MD [address] [place] [address] PCP - Generalmily Medicine08/10/23 Georgia Davey NP [address] [place] [address] Nurse Pract[facility]erCharl[facility] Medicine07/20/22 Georgia Davey NP [address] [place] [address] Referring PhysicianP[facility]05/04/23Team MemberRelationshipSpecialtyStart DateEnd Date Montrell Serrano MD [address] [place] [address] P[facility] - [facility]Van [facility]ally [facility]08/10/23 Georgia Davey NP [address] [place] [address] Nurse PractitionerCharl[facility] Medicine07/20/22 Georgia Davey NP [address] [place] [address] Referring PhysicianCharl[facility] Hospital Mjpchigy57/16/23Team MemberRelationshipSpecialtyStart DateEnd Date Montrell Serrano MD [address] [place] [address] PCP - Generalmily Medicine08/10/23 Georgia Davey NP [address] [place] [address] Nurse PractitionerVan [facility]ally Medicine07/20/22 Georgia Davey NP [address] [place] [address] Referring PhysicianCharl[facility] Hospital Avdtines55/16/23Team MemberRelationshipSpecialtyStart DateEnd Date Montrell Serrano MD [address] [place] [address] PCP - Generalmily Mxrjflag50/16/231 Montrell Serrano MD [address] [place] [address] PCP - [facility] Medicine08/10/23 Georgia Davey NP [address] [place] [address] Nurse PractitionerCharl[facility] Medicine07/20/22 Georgia Davey NP [address] [place] [address] Referring PhysicianCharl[facility] Hospital Bizqnmed00/16/23Team MemberRelationshipSpecialtyStart DateEnd Date Montrell Serrano MD [address] [place] [address] PCP - GeneralFamily Medicine08/10/23 Georgia Davey NP [address] [place] [address] Nurse PractitionerVan [facility]ren [facility] Hospitally Medicine07/20/22 Georgia Davey NP [address] [place] [address] Referring PhysicianCharl[facility] Hospital Apyepdex54/16/23Team MemberRelationshipSpecialtyStart DateEnd Date Montrell Serrano MD [address] [place] [address] PCP - [facility] Medicine08/10/23 Georgia Davey NP [address] [place] [address] Nurse PractitionerCharl[facility] Medicine07/20/22 Georgia Davey NP [address] [place] [address] Referring PhysicianCharlton Memorial Hospital Lmncxmmb65/16/23Team MemberRelationshipSpecialtyStart DateEnd Date Montrell Serrano MD [address] [place] [address] PCP - [facility] Medicine08/10/23 Georgia Davey NP [address] [place] [address] Nurse PractitionerCharl[facility] Medicine07/20/22 Georgia Davey NP [address] [place] [address] Referring PhysicianCharl[facility] Hospital Uscyyehi18/16/23Team MemberRelationshipSpecialtyStart DateEnd Date Montrell Serrano MD [address] [place] [address] PCP - [facility] Medicine08/10/23 Georgia Davey NP [address] [place] [address] Nurse Pract[facility]erP[facility]07/20/22 Georgia Davey NP [address] [place] [address] Referring PhysicianP[facility]05/04/23Team MemberRelationshipSpecialtyStart DateEnd Date Montrell Serrano MD [address] [place] [address] PCP - [facility] Medicine08/10/23 Georgia Davey NP [address] [place] [address] Nurse Pract[facility]Charl[facility] Medicine07/20/22 Georgia Davey NP [address] [place] [address] Referring PhysicianCharl[facility] Hospital Esvbanwy89/16/23Team MemberRelationshipSpecialtyStart DateEnd Date Montrell Serrano MD [address] [place] [address] PCP - [facility] Medicine08/10/23 Georgia Davey NP [address] [place] [address] Nurse Pract[facility] Medicine07/20/22 Georgia Davey NP [address] [place] [address] Referring PhysicianP[facility]05/04/23Team MemberRelationshipSpecialtyStart DateEnd Date Montrell Serrano MD [address] [place] [address] PCP - [facility]08/10/23 Georgia Davey NP [address] [place] [address] Nurse Pract[facility]erP[facility]07/20/22 Georgia Davey NP [address] [place] [address] Referring PhysicianP[facility]05/04/23Team MemberRelationshipSpecialtyStart DateEnd Date Montrell Serrano MD [address] [place] [address] PCP - [facility] Medicine08/10/23 Georgia Davey NP [address] [place] [address] Nurse Pract[facility] Medicine07/20/22 Georgia Davey NP [address] [place] [address] Referring PhysicianP[facility]05/04/23Te MemberRelationshipSpecialtyStart DateEnd Date Montrell Serrano MD [address] [place] [address] PCP - [facility]08/10/23 Georgia Davey NP [address] [place] [address] Nurse PractitionerP[facility]07/20/22 Georgia Davey NP [address] [place] [address] Referring PhysicianP[facility]05/04/23Te MemberRelationshipSpecialtyStart DateEnd Date Montrell Serrano MD [address] [place] [address] PCP - [facility]08/10/23 Georgia Davey NP [address] [place] [address] Referring PhysicianP[facility]05/04/23 Kwame Rodríguez NP [address] [facility] [place] [address] Nurse PractitionerGe[facility]06/22/24 Nadia Swift DO [address] [address] DejcfivefevBmyvuuoll30/4/24Team MemberRelationshipSpecialtyStart DateEnd Date Montrell Serrano MD [address] [place] [address] PCP - GeneralFamily Medicine08/10/23 Georgia Davey NP [address] [place] [address] Referring PhysicianCharlton Memorial Hospital Nvrpdsut79/16/23 Kwame Rodríguez NP [address] [facility] [address] [place] [address] [facility]06/22/24 Nadia Swift DO [address] [address] CxmhoqxyqnxGoykcizfr20/4/24Team MemberRelationshipSpecialtyStart DateEnd Date Montrell Serrano MD [address] [place] [address] PCP - GeneralFami Medicine08/10/23 Georgia Davey NP [address] [place] [address] Referring PhysicianCharlton Memorial Hospital Uolajikj20/16/23 Kwame Rodríguez NP [address] [address] Nurse PractitionerBehavioral Cvgiwo73/4/24 Nadia Swift DO [address] [address] XtliatlavfgOavtfxsbq85/4/24Team MemberRelationshipSpecialtyStart DateEnd Date Montrell Serrano MD [address] [place] [address] PCP - GeneralFamily Medicine08/10/23 Georgia Davey NP [address] [place] [address] Referring PhysicianFamily Qhvwznib62/16/23 Kwame Rodríguez NP [address] [place] [address] Nurse PractitionerBehavioral Ymhzbj64/4/24 Nadia Swift DO [address] [address] FrveebpiwobWniwrkpsg52/4/24Te MemberRelationshipSpecialtyStart DateEnd Date Montrell Serrano MD [address] [place] [address] PCP - GeneralFamily Medicine08/10/23 Georgia Davey NP [address] [place] [address] Referring PhysicianFamily Dxntoyts03/16/23 Kwame Rodríguez NP 112 [facility] [address] [place] [address] [facility]06/22/24 Nadia Swift DO [address] [phone] WyryjavvxwhVutxkcbsh12/4/24Te MemberRelationshipSpecialtyStart DateEnd Date Montrell Serrano MD [address] [place] [address] PCP - [facility] Medicine08/10/23 Georgia Davey NP [address] [place] [address] Referring Physicianmi Uovrhpha76/16/23 Kwame Rodríguez NP [address] [place] [address] [facility]06/22/24 Nadia Swift DO [address] [address] UexvnivcrceLsfadrevq46/4/24Te MemberRelationshipSpecialtyStart DateEnd Date Montrell Serrano MD [address] [place] [address] PCP - [facility] Medicine08/10/23 Georgia Davey NP [address] [place] [address] Referring PhysicianFamily Xpucsmfe74/16/23 Kwame Rodríguez, JA [address] [facility] [address] [place] [address] Nurse PractitionerBehavioral Ydiggz02/4/24 Nadia Swift DO [address] [address] ItbcxehscqqGkpimwifc65/4/24Team MemberRelationshipSpecialtyStart DateEnd Date Montrell Serrano MD [address] [place] [address] PCP - Generalmily Medicine08/10/23 Georgia Davey, JA [address] [place] [address] Referring PhysicianFamily Oqroyzxj75/16/23 Kwame Rodríguez, [facility] [address] [facility] [address] [place] [address] Nurse PractitionerBehavioral Uldefp50/4/24 Nadia Swift DO [address] [address] [place] [address] RpjoadvnyvaXonlhidht71/4/24 Armen Hernández LPC Social Workerhavioral [facility]08/24/24Team MemberRelationshipSpecialtyStart Date End Date Montrell Serrano MD [address] [place] [address] PCP - GeneralFamily Medicine08/10/23 Georgia Davey, JA [address] [place] [address] Referring PhysicianFamily Umdxqqja76/16/23 Kwame Rodríguez [facility] [address] [facility] [address] [place] [address] Nurse Practitionerhavioral Ujcdxa97/4/24 Nadia Swift DO [address] [place] [phone] SqdugunezadShquxzevk54/4/24 Armen Hernández LPC Social WorkerGeisinger St[facility]08/24/24Team MemberRelationshipSpecialtyStart Date End Date Montrell Serrano MD [address] [place] [address] PCP - [facility]08/10/23 Georgia Davey NP [address] [place] [address] Referring Physicianmily Iklthecl05/16/23 Kwame Rodríguez [facility] 112 [facility] [address] [place] [address] [facility]06/22/24 Nadia Swift DO [address] [place] [phone] RkpuwfylbpdGvmywzlqx16/4/24 Azaelmagdalene Armen [facility] Social Workerhavioral Health08/24/24Team MemberRelationshipSpecialtyStart Date End Date Montrell Serrano MD [address] [place] [address] PCP - GeneralFamily Medicine08/10/23 Georgia Davey, JA [address] [place] [address] Referring PhysicianCharlton Memorial Hospital Zxegkyxh72/16/23 Kwame Rodríguez [facility] [address] [address] [place] [phone] Nurse Practitionerhavioral Ulpehi13/4/24 Nadia Swift DO [address] [phone] FiqeojdycyeZcfomgisn55/4/24 Eriktamiko Armen [facility] Social WorkerGeisinger St[facility]08/24/24Team MemberRelationshipSpecialtyStart Date End Date Montrell Serrano MD [address] [place] [phone] PCP - Generalmily Medicine08/10/23 Georgia Davey, JA [address] [place] [phone] Referring PhysicianCharl[facility] Gcxkjbpg79/16/23 Kwame Rodríguez [facility] [address] [facility] [address] [place] [address] Nurse PractitionerBehavioral Rxrkvc74/4/24 Nadia Swift DO [address] [place] [phone] TblhejxclzvYkikmwhdy59/4/24 Armen Hernández LPC Social WorkerBehavioral Health08/24/24Team MemberRelationshipSpecialtyStart Date End Date Montrell Serrano MD [address] [place] [phone] PCP - GeneralFamily Medicine08/10/23 Georgia Davey NP [address] [place] [phone] Referring Physicianmily Mcdhtexr35/16/23 Kwame Rodríguez [facility] [address] [place] [address] [place] [address] Nurse PractitionerBehavioral Tpmxfr88/4/24 Nadia Swift DO [address] [place] [phone] KinfmnnxjeeTjnwpohjx70/4/24 Armen Hernández [employer] SOFTWARE DEVELOPER Social WorkerBehavioral Health08/24/24Te MemberRelationshipSpecialtyStart Date End Date Montrell Serrano MD [address] [place] [phone] PCP - GeneralFamily Medicine08/10/23 Georgia Davey NP [address] [place] [address] Referring PhysicianFamily Ytypwugz04/16/23 [facility] [address] [facility] [address] [place] [address] Nurse PractitionerBehavioral Mfavwv05/4/24 Nadia Swift DO [address] [phone] EpwezftpuepAtfkjigco28/4/24 Armen Hernández LPC Social WorkerCharl[facility] Health08/24/24Team MemberRelationshipSpecialtyStart Date End Date Montrell Serrano MD [address] [place] [address] PCP - GeneralFamily Medicine08/10/23 Georgia Davey, JA [address] [place] [phone] Referring PhysicianFamily Cgtcpngz15/16/23 [facility] 112 [facility] [address] [place] [address] Nurse PractitionerBehavioral Niiapa79/4/24 Nadia Swift DO [address] [phone] GugtibirajvTyjixpswd03/4/24Team MemberRelationshipSpecialtyStart DateEnd Date Montrell Serrano MD [address] [place] [phone] PCP - Generalmily Medicine08/10/23 Georgia Davey, JA [address] [place] [phone] [facility]05/04/23 [facility] [address] [facility] [address] [place] [address] [facility]06/22/24 Nadia Swift DO [address] [place] [phone] AdizbnidhduNhtzzewcd51/4/24Team MemberRelationshipSpecialtyStart DateEnd Date Montrell Serrano MD [address] [place] [phone] PCP - [facility]08/10/23 Georgia Davey, JA [address] [place] [phone] Referring PhysicianP[facility]05/04/23 [facility] [address] [facility] [address] [place] [address] [facility]06/22/24 Nadia Swift DO [address] [place] [phone] HmnhhlyrdqpZkgxcberz87/4/24Team MemberRelationshipSpecialtyStart DateEnd Date Montrell Serrano MD [address] [place] [phone] PCP - Generalmily Medicine08/10/23 Georgia Davey NP [address] [place] [phone] Referring PhysicianP[facility]05/04/23 [facility] 112 [facility] [address] [place] [address] [facility]06/22/24 Nadia Swift DO [address] [place] [phone] SovpfvydmldKggecagox25/4/24Team MemberRelationshipSpecialtyStart DateEnd Date Montrell Serrano MD PCP - [facility]08/10/23 Georgia Davey NP Referring PhysicianP[facility]05/04/23 Kwame Rodríguez [facility] [address] [place] [address] [facility]06/22/24 Nadia Swift DO [address] [place] [phone] OropjjlequuFahwugkmi56/4/24Team MemberRelationshipSpecialtyStart DateEnd Date Montrell Serrano MD PCP - GeneralFamily Medicine08/10/23 Georgia Davey NP Referring Physicianmily Pggsfivy25/16/23 [facility] [address] [facility] 160 [place] [address] [facility]06/22/24 Nadia Swift DO [address] [place] [phone] XnpebuzkmfhBelaoocwv37/4/24Team MemberRelationshipSpecialtyStart DateEnd Date Montrell Serrano MD PCP - Generalmily Medicine08/10/23 Georgia Davey NP Nurse PractitionerVan Buren County Hospitally Medicine07/20/2311 Georgia Davey NP Referring PhysicianP[facility]05/04/23 Kwame Rodríguez, [facility] [address] [facility] [address] [place] [address] [facility]06/22/24 Nadia Swift DO [address] [place] [phone] VkalkyupdpsQoylszjsa79/4/24 Armen Hernández LPC Social WorkerBehavioral Health Reason for Visit (unrecogniz ed section and content) ReasonCommentsTremorsSpecialtyDiagnoses / ProceduresReferred By ContactReferred To ContactNeurology Diagnoses Tremor, unspecified Procedures [place] OFFICE/OUTPATIENT [facility] 60 MINUTES Georgia Davey NP [address] [place] [address] Phone: tel: fax: Galindo Sen MD [address] [place] [address] Phone: tel: fax: Referral IDStatusReasonStart DateExpiration DateVisits RequestedVisits [id number] Specialty Services Required [id number] DyskinesiaTremorsReasonComments Psychiatric EvaluationSpecialtyDiagnoses / ProceduresReferred By ContactReferred To ContactBehavioral Health Diagnoses Tardive dyskinesia Tremor, unspecified Procedures [place] OFFICE/OUTPATIENT [facility] Jim Wilde NP [address] [place] [address] Phone: tel: fax: Kwame Rodríguez NP 112 [facility] 160 [place] [address] Phone: tel: fax: Referral IDStatusReasonStart DateExpiration DateVisits RequestedVisits [id number] Specialty Services Required [id number]eBp presents today for a colonoscopy consult. Pt [...] ContactBehavioral Health Diagnoses Counseling Procedures Counseling [facility] 112 [facility] 160 [place] [address] Phone: tel: fax: [facility] [address] [facility] [address] [place] [address] Phone: tel: fax: Referral IDStatusReasonStart DateExpiration DateVisits RequestedVisits [id number]qfgeer Diagnoses / ProceduresReferred By ContactReferred To ContactBehavioral Health Diagnoses Counseling Procedures Counseling [facility] [address] [address] Phone: tel: fax: [facility] [address] [address] Phone: tel: fax: ReasonOnset DateCommentsAdvice Only10/17/2024ReasonCommentsWeight CheckReason CommentsNew PatientMovement Disorder (Tardive Dyskinesia; Tremors)ReasonComments PT EvalSpecialtyDiagnoses / ProceduresReferred By ContactReferred To Contact [facility] Diagnoses Functional movement disorder Dyskinesia, tardive Procedures CONSULT TO PHYSICAL THERAPY PHYSICAL THERAPY EVALUATION HIGH COMPLEX 45 MINS THERAPEUTIC EXERCISES RE, EA 15 MIN. Olena Gomez MD [address] [place] [address] Phone: tel: fax: [facility] [address] [phone] Referral IDStatusReasonStart DateExpiration DateVisits RequestedVisits [id number] Auto-Generated Referral [id number]pvucmoBjkmnwtbe / Procedures Referred By ContactReferred To ContactPsychology / NEUROLOGICAL SIKHISM Diagnoses Functional movement disorder Dyskinesia, tardive Procedures OFFICE/OUTPATIENT [facility] 60 MINUTES Olena Gomez MD [address] [phone] Phone: tel: fax: [facility] [address] [phone] Phone: tel: Referral IDStatusReasonStart DateExpiration DateVisits RequestedVisits [id number] PCP Requested Referral [id number]-oqCbq ManagementBipolarAnxiety Source Comments (unrecognize d section and content) In the event this informatio n is protected by the Federal Confidentiality of Alcohol and Drug Abuse Patient Records regulations: The Federal rules restrict any use of the information to criminally investigate or prosecute any alcohol or drug abuse patient.[facility] CenterIn the event this information is protected by the Federal Confidentiality of Alcohol and Drug Abuse Patient Records regulations: The Federal rules restrict any use of the information to criminally investigate or prosecute any alcohol or drug abuse patient.[facility] CenterIn the event this information is protected by the Federal Confidentiality of Alcohol and Drug Abuse Patient Records regulations: The Federal rules restrict any use of the information to criminally investigate or prosecute any alcohol or drug abuse patient.[facility] CenterIn the event this information is protected by the Federal Confidentiality of Alcohol and Drug Abuse Patient Records regulations: The Federal rules restrict any use of the information to criminally investigate or prosecute any alcohol or drug abuse patient.[facility] FOR RECORDS PERTAINING TO PATIENTS [...] BE BASED ON THE PRIMARY CLINICAL RECORDS. [employer] [facility]. provides no warranty or guarantee of the accuracy or completeness of information in this document.
--- OUTSIDE RECORDS SUMMARY | 2025-06-06 07:07 | XMS_ITS | Clinical Summary ---
Author Organization Address [address] [place], [place] [phone] Care Team Providers Care Pharmacy Grad Intern Name Role Phone Unavailable Primary Care Provider Unavailabl e Allergies Active AllergyReactionsCriticalityNoted DateCommentsMorphineHives,Unknown 09/16/2018 Severe itching QsjrzzjjzknNsqfFhg91/14/2024 Medications MedicationSigDispense QuantityRefillsLast FilledStart DateEnd DateStatus FLUoxetine [...] drink = 0.6 oz pure alcohol)rarePHQ-2AnswerDate RecordedPHQ-2 lheqs128Sex and Gender InformationValueDate RecordedSex Assigned at BirthNot on fileLegal SexMale 11/29/2024 8:44 AM EDTGender IdentityNot on fileSexual OrientationNot on file Last Filed Vital Signs Vital SignReadingTime TakenCommentsBlood Nrneukcu154/8007 9:28 AM EDT Sqkzz1865 9:28 AM EDTTemperature--Respiratory Rate--Oxygen Hyywsgmtgd87% 02/03/2025 9:28 AM EDTInhaled Oxygen Concentration--Weight--Height--Body Mass Index-- Plan of Treatment Health MaintenanceDue DateLast DoneCommentsAnxiety Mayofowii99/12/2001Depression Kdfadcixs00/12/2001HIV Ringffmfn12/12/2001Hepatitis C Mfnwccsxt45/12/2001 DTaP,Tdap,Td Vaccine (1 - Tdap)2001Hepatitis B Vaccine (1 of 3 - 19+ 3- dose series)2001HPV Vaccine (1 - 3-dose SCDM series)2009Lipid Tcohusfah73/12/2018Covid-19 Vaccine ( - 2024- season)2025Influenza Vaccine (#1)2025 Insurance [place] [id number]
--- OUTSIDE RECORDS SUMMARY | 2025-06-06 07:07 | XMS_ITS | Clinical Summary ---
Author Organization Charge Payment [facility] tem Address [facility] [id number] [address] [place] [address] Care Team Providers Care Manager Pediatric Name Role Phone Amari Holloway MD Primary Care Provider [phone] Allergies Active AllergyReactionsCriticalityNoted KmceKtiteomkLoysvhtr60/28/2019 Severe itching Medications MedicationSigDispense QuantityRefillsLast FilledStart DateEnd [...] of Binge DrinkingNot on file09/16/2018ChildcareAnswerDate RecordedChildcareUnknown 2018EmploymentAnswerDate KelxvydfFktjhculodSbmunfo98/12/2019Purpose - Life AnswerDate RecordedPurpose and direction in jaifFblnikg51/11/2021Sex and Gender InformationValueDate RecordedSex Assigned at BirthNot on fileLegal SexMale 02/22/2015 11:36 AM EDTGender IdentityNot on fileSexual OrientationNot on file Last Filed Vital Signs Vital SignReadingTime TakenCommentsBlood Pressure--Pulse--Temperature-- Respiratory Rate--Oxygen Saturation--Inhaled Oxygen Concentration--Npvnwr18.2 kg (190 lb)09/16/2018 10:04 AM JQINgtuwe992.9 cm (6')09/16/2018 10:04 AM ESTBody Mass Index25.77009/16/2018 10:04 AM EST Plan of Treatment Health MaintenanceDue DateLast DoneCommentsDepression Pahblcgls92/12/1995Tobacco Jmwtybfqp84/12/1995Adult BMI Bjrqiqtuj47/12/2001DTaP,Tdap and Td Vaccines (1 - Tdap)2001Influenza Gftaknm1303/20/2025 Medical Devices Not on file Insurance Care Teams Team MemberRelationshipSpecialtyStart DateEnd Date Amari Holloway MD [address] [place] [address] PCP - GeneralFamily Medicine09/16/18
[2025-06-06] MEDS: CIPROFLOXACIN 400 MG/200 ML D5W PREMIX 200 MG IV (08:19)
--- NOTE | 2025-06-06 09:41 | P.URON_ITS ---
Urology Surgery Operative Note Operative Note Procedure Date: 06/06/25 Time Out Performed: yes Pre-op Diagnosis: Left nephrolithiasis Post-op Diagnosis: same as pre-op Procedures performed: 1. Cystoscopy. 2. Left ureteroscopy. 3. Left pyeloscopy. 4. Thulium laser lithotripsy of the large left renal calculi. 5. Placement of 6 [place] variable length left ureteral stent Anesthesia: FELICIANO Primary Surgeon: Taras Hernandez Complications: None Estimated blood loss (mL): 2 Findings: 1. 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 2. A 1 cm left midpole stone. A 1.8 to 2 cm left lower pole stone. Specimens: None Drains: 6 [place] variable length left ureteral stent Indications for Procedures: This gentleman has 2 sizable left renal calculi that are nonobstructing. He now presents for definitive ureteroscopic laser lithotripsy and probable stent placement. He has signed an informed consent for these procedures after risks were explained. Detailed description of Procedure: The patient was brought to the operating room and placed on the operating room table in the supine position. SCDs were placed on the lower extremities and turned on and functioning during the entire case. Timeout was done by all parties in the room. We all agreed upon the patient's identification and the planned procedures for this patient. Genn. anesthesia was then administered. The patient was then repositioned into the modified dorsal lithotomy position. All pressure points were satisfactorily padded. Genitalia were sterilely prepped and draped in usual fashion. I started by passing a 22 [place] Olympus cystoscope per urethra and into the bladder. His urethral meatus was a bit narrow but I was able to eventually get the scope through it. Anterior urethra was normal. Prostatic urethra showed bilobar hypertrophy. Panendoscopy in the bladder revealed no evidence of any tumors stones or foreign bodies. Mild trabeculation was noted. I then passed a Glidewire through the scope and cannulated the left ureter and got the wire up into the kidney. The scope was removed and I then passed a 10/12 [place] ureteral access sheath over the wire and slid it up to the L5 level. The stylette and wire were then removed. I then passed a flexible ureteroscope through the sheath and into the ureter. I ascended up the ureter and then went into the kidney. I scoped into the upper mid and lower pole calyces. I found several Shashi's plaques in the upper and mid pole calyces. The smaller of the 2 sizable stones was located in the midpole. In the lower pole there was just the 1 large stone. I started in the lower pole and passed a 270 Angstrom laser fiber through the scope. I then made contact with the stone and used the thulium laser at 7 W then 10 and ultimately 15 W on the dusting mode. I was able to entirely dust this stone. I then went to the mid pole and similarly entirely dusted that stone. Upon completion, the stones we could see by fluoroscopy preop were absent postop. The scope was then removed. I then passed the Glidewire through the sheath into the kidney and removed the sheath. The cystoscope was backloaded over the wire and passed into the bladder and then a 6 [place] variable length stent was fed over the wire to the kidney. The wire was removed and there were good curls in the kidney and in the bladder. The bladder was drained of its contents and the scope was removed. The anesthetic was then reversed. He was then transferred to PACU in stable condition.
[2025-06-06] MEDS: SOLIFENACIN SUCCINATE 10 MG TABLET PO (10:02)
--- NOTE | 2025-06-06 11:46 | PC.NURSE ---
patient states he was having pain with urination and was nauseated. patient laid back down and nausea is better. requesting to eat a candy bar
== END 2025-06-06 12:10 | disposition home or self-care (01) ==
PROVIDERS: PCP Nurse Practitioner; Visit Provider Urology
PROC: (CPT 918; principal; 2025-06-06 08:30)
DX: N20.0 Calculus of kidney (principal); N32.89 Other specified disorders of bladder; G24.01 Drug induced subacute dyskinesia; F31.9 Bipolar disorder, unspecified; J30.2 Other seasonal allergic rhinitis
CPT/HCPCS: 52356; 36415; 76000; J0744; J1100; J1885; J2250; J2405; J2704; J3010

== ENCOUNTER 2025-07-14 08:42 | Outpatient (OUT) | payer OTHER, SELFPAY ==
--- OUTSIDE RECORDS SUMMARY | 2025-07-12 09:24 | XMS_ITS | Clinical Summary ---
Author Organization [facility] tem Address [facility] [id number] [address] [place] [address] Care Team Providers Care Ciaio Lumite Injector Name Role Phone Amari Holloway MD Primary Care Provider [phone] Allergies Active AllergyReactionsCriticalityNoted ZttyUoyzmxqqTewsycps82/28/2019 Severe itching Medications MedicationSigDispense QuantityRefillsLast FilledStart DateEnd [...] of Binge DrinkingNot on file09/16/2018ChildcareAnswerDate RecordedChildcareUnknown 2018EmploymentAnswerDate FgemjjndOtgapwutotXbywysm16/12/2019Purpose - Life AnswerDate RecordedPurpose and direction in esxlPxjydxn19/11/2021Sex and Gender InformationValueDate RecordedSex Assigned at BirthNot on fileLegal SexMale 02/22/2015 11:36 AM EDTGender IdentityNot on fileSexual OrientationNot on file Last Filed Vital Signs Vital SignReadingTime TakenCommentsBlood Pressure--Pulse--Temperature-- Respiratory Rate--Oxygen Saturation--Inhaled Oxygen Concentration--Sritra51.2 kg (190 lb)09/16/2018 10:04 AM IPYQzxygh272.9 cm (6')09/16/2018 10:04 AM ESTBody Mass Index25.77009/16/2018 10:04 AM EST Plan of Treatment Health MaintenanceDue DateLast DoneCommentsDepression Uuhrulknf58/12/1995Tobacco Ntrqgegap66/12/1995Adult BMI Skrqzdynn54/12/2001DTaP,Tdap and Td Vaccines (1 - Tdap)2001Influenza Zkvzryh7503/20/2025 Medical Devices [place] [address] Care Teams Team MemberRelationshipSpecialtyStart DateEnd Date Amari Holloway MD [address] [place] [address] PCP - GeneralFamily Medicine09/16/18
--- OUTSIDE RECORDS SUMMARY | 2025-07-12 09:24 | XMS_ITS | Clinical Summary ---
Author Organization [facility] Address [address] [facility] [place] [address] Care Team Providers Care Clinical Appeals Rn Name Role Phone Georgia Davey NP Unavailable [phone] Montrell Serrano MD Primary Care Provider [phone] Eunice Rodríguez PMHNP- Unavailable Jj Swift DO Unavailable [phone] Allergies Active AllergyReactionsCriticalityNoted WrwjMuqftylnGtjmwwuaOokib97/28/2019 Severe itching MdsogqaeorrXzoaIru70/14/2024 Medications MedicationSigDispense QuantityRefillsLast FilledStart DateEnd DateStatus lamoTRIgine [...] (80 mg) by mouth Daily 90 capsule 6Active Active Problems ProblemNoted DateDiagnosed DateMixed bipolar affective disorder, mild12/08/2024 Assessment & Plan (01/24/2025 9:02 AM EDT): Continue with psych Joint abcmxkblj17/22/2025 Assessment & Plan (12/08/2024 9:32 AM EDT): Family hx RA Excessive nzkklicz81/22/2025 Assessment & Plan (12/08/2024 9:32 AM EDT): Check labs ??side effect meds?? Dpyexyag31/22/2025Weight loss, dqjlirkdlibqk73/22/2025 Assessment & Plan (01/24/2025 9:01 AM EDT): [...] as well ? Psych related? Bipolar 2 deieafaz16/14/2025 Assessment & Plan (12/08/2024 6:11 AM EDT): Under the care of psychological aide Current meds: fluoxetine, lamictal, inderal, ingrezza SAMRA (generalized anxiety disorder)11/30/2024Tardive yzsiftyudq13/14/2025 Assessment & Plan (01/24/2025 8:58 AM EDT): Working w psych Also has movement disorder Assessment & Plan (12/08/2024 6:11 AM EDT): Taking ingrezza Follow w psych Current episode of major depressive disorder without prior rtgvuht1111/30/2024 Foktgs2804/19/2024 Assessment & Plan (12/08/2024 9:32 AM EDT): [...] EST): Recommend exercise S/P arthroscopy of right efbwsjvw46/29/2024Internal derangement of right /22/2023 Resolved Problems ProblemNoted DateDiagnosed DateResolved DateEncounter for wellness examination in adult/ Assessment & Plan (06/13/2024 6:17 AM EST): [...] cream If not better contact office Rectal wqxkefjj44/ Assessment & Plan (06/13/2024 10:05 AM EST): When returning to room to give AVS, pt states that he has had rectal bleeding for the last several weeks. He believes he has an internal hemorrhoid Will refer to General surgeon for eval Bipolar 1 pggijgdg74/ Overview (09/08/2023): Pt has a hx of [...] AM EST): Continue with psych for managment Rcofgag59/ Overview (09/23/2023): Had normal CXR 10/10, 09/18/2023: [...] first with psych provider Deana Zaman in [place] to make sure ok to use with psych diagnosis [phone] 10/07/23 message regarding this , will await a call back No smoking history, however he has had second hand smoke exposure for many years Fu in 6 weeks 10/08/23 10:23 Trinh from Deana Zaman's office called back ok to trial singulair, just monitor for worsening in mood [place] Assessment & Plan (09/08/2023 9:36 AM EST): Check xray and pft Discussed other differentials: cardiac, and anxiety Fu in 4 weeks Srkkbwoi85/ Assessment & Plan (09/08/2023 9:36 AM EST): No hx of asthma, no smoking hx +family hx COPD/Emphysema, however members are smokers Check cxr and pft Fu in 4 weeks Encounters DateTypeDepartmentCare UawxRbauukptrif42/29/2025Refill [facility] [address] [facility] [address] [place] [address] Juliana Tillman LPN Bipolar 2 disorder (HCC); SAMRA (generalized anxiety disorder)05/11/2025Refill [facility] [address] [facility] [address] [place] [address] Eunice Rodríguez, JEFFERYP-BC Bipolar 2 disorder (HCC); SAMRA (generalized anxiety disorder)from Last 3 Months Family History Medical HistoryRelationNameCommentsDiabetesBrotherDrew HenryMultiple sclerosis FatherRickie HenryVision lossFatherRickie HenryArthritisMaternal Grandmother Brinda ShearnHearing lossMaternal GrandmotherCarolyn ShearnVision lossMother Sandra sorgCOPDOthermothers sideFibromyalgiaOthermothers sideRheum arthritisOther mothers sideRelationNameStatusCommentsBrotherDrew HenryFatherRickie HenryAlive Maternal GrandmotherCarolyn ShearnMotherPenny sorgAliveOthermothers side Social History Tobacco UseTypesPacks/DayYears [...] a week 09/07/2023How often do you attend mandaen or church services?More than 4 times per year09/07/2023o you belong to any clubs or organizations such as mandaen groups, unions, fraternal or athletic groups, or school groups?Patient declined 09/07/2023How often do you attend meetings of the clubs or organizations you belong to?Patient /19/2024re you , , , , never , or living with a partner?Sdufuet0509/07/2023UDIT-C AnswerDate RecordedQ1: How often do you have [...] heating?Not hard at all09/07/2023HQ-2AnswerDate RecordedPatient Health Questionnaire-2 Hitnc919[facility] [place] of [facility]ational Health - Occupational Stress QuestionnaireAnswerDate [...] InformationValueDate RecordedSex Assigned at BirthNot on fileLegal KlbTrum9710/01/2022 7:11 PM EDTGender IdentityNot on fileSexual OrientationNot on file Last Filed Vital Signs Vital SignReadingTime TakenCommentsBlood Zjudrjxt392/7208 7:52 AM EDT Rhepq6647 7:52 AM UGEFzgwvyjmsme28.6 ??C (97.8 ??F)01/24/2025 8:32 AM EDTRespiratory Wkhk0589 8:32 AM EDTOxygen Ssebrkzccq09%01/24/2025 8:32 AM EDTInhaled Oxygen Concentration--Rrdqax85.3 kg (188 lb)02/22/2025 7:52 AM EDT Isnwbp905.9 cm (6')06/29/2024 8:48 AM ESTBody Mass Index25. 8:48 AM EST Plan of Treatment DateTypeDepartmentCare Team (Latest Contact Info)Zotqiciinfx93/19/2026 3:30 PM ESTOffice Visit [facility] [address] [facility] [address] [place] [address] Eunice Rod[facility]guez, [facility] [address] [facility] [address] [place] [address] Health MaintenanceDue DateLast DoneCommentsInfluenza VaccineDiscontinued Pneumococcal Vaccine: Pediatrics (0 to 5 Years) and At-Risk Patients (6 to 64 Years)Aged OutNo longer eligible based on patient's age to complete this topic Insurance Care Teams Team MemberRelationshipSpecialtyStart DateEnd Date Montrell Serrano MD PCP - GeneralFamily Medicine08/10/23 Georgia Davey NP Referring PhysicianFamily Rhiciwnw69/16/23 Eunice Rodríguez PMHNPDECAT[facility] [address] [facility] [address] [place] [address] Nurse PractitionerEncompass [facility] Hospital Ujfsko12/4/24 Jj Swift DO [address] [facility] [address] [place] [address] FvxuxjhcixrUuycbfxzc95/4/24
--- OUTSIDE RECORDS SUMMARY | 2025-07-12 09:24 | XMS_ITS | Patient Health Record ---
Author Organization [facility] es Address [address] [address] Care Team Providers Care Smokehouse Worker Name Role Phone Isaias Grady Primary Care Provider Allergies Allergen (clinical drug ingredient) Drug/Non Drug Allergy documented on EMR Reaction Allergy Type Onset Date Status morphine Morphine Unknown Drug Allergy Active Reason For Referral No Information Medications Medication SIG (Take, Route, Frequency, Duration) Notes Start Date End Date Status hydrOXYzine HCl 25 MG Tablet 1-2 tablet as needed Orally at bedtime; Duration: 30 day(s) 05/23/2021Not-Taking/PRNAustedo XR 12 MG Tablet Extended Release 24 HourTAKE 1 TABLET BY MOUTH ONCE DAILY; Duration: 60 daysActivetraZODone HCl 50 MG Tablet1 tablet at bedtime as needed Orally Once a day; Duration: 30 day(s)09/11/2021 Not-Taking/PRNSingulair 10 MG Tablet1 tablet Orally Once a dayNot-Taking/PRN CeleXA 10 MG Tablet1 tablet Orally once a day; Duration: 30 day(s)Not-Taking/PRN Austedo XR 24 MG Tablet Extended Release 24 HourTAKE 1 TABLET BY MOUTH ONCE DAILY; Duration: 60 daysActiveARIPiprazole 30 MG TabletTAKE 1 TABLET BY MOUTH EVERY DAY; Duration: 30 day(s)Not-Taking/PRNRozerem 8 MG Tablet1 tablet at bedtime as needed Orally Once a day; Duration: 30 days11/25/2022Not-Taking/PRN Benztropine Mesylate 1 MG Tablet1 tablet Orally once a day in the evening; Duration: 90 daysto take with 2mg in the morningNot-Taking/PRNBenztropine Mesylate 2 MG TabletTAKE 1 TABLET BY MOUTH EVERY DAY; Duration: 90Not-Taking/PRN ARIPiprazole 10 MG TabletTAKE 1 TABLET BY MOUTH EVERY DAY; Duration: 30 days ActiveRamelteon 8 MG Tablet1 tablet at bedtime as needed Orally Once a day; Duration: 30 daysNot-Taking/PRN Social History Tobacco Use: Social History Observation Description Date Details (start date - stop date) Never Smoker NA - NA Social History GeneralSocial InfoQuestionAnswerNotesDepression Screening (PHQ-9):Little interest or pleasure in doing thingsNot at allFeeling down, depressed, or hopelessNot at allTrouble falling or staying asleep, or sleeping too muchSeveral daysFeeling tired or having little energySeveral daysPoor appetite or overeating Several daysFeeling bad about yourself-or that you are a failure or have let yourself or your family downNot at allTrouble concentrating on things, such as reading the newspaper or watching televisionSeveral daysMoving or speaking so slowly that other people could have noticed. Or the opposite being so fidgetyor restless that you have been moving around a lot more than usualNot at all Thoughts that you would be better off , or of hurting yourself in some way Not at allTotal Ognej7WrjwiyexabihgFqmhozm DepressionTobacco Screen:Are you a: never smokerAlcohol Screening:Did you have a drink containing alcohol in the past year?FjQbvudh2FofwsrymxqdvcwFiejqhty Problems Problem Type SNOMED Code ICD Code Onset Dates Problem Status W/U Status Risk Notes Problem Mixed bipolar affect kayla disorder, mild (853524840) Bipolar disorder, current episode mixed, mild (F31.61) ActiveconfirmedProblemTardive dyskinesia (921182154)Tardive dyskinesia (G24.01) Activeconfirmed Plan Of Treatment No Information Insurance Providers Payer Name Payer Address Payer Phone Subscriber Number Group Number Insured Name Patient Relationship to Insured Coverage Start Date Coverage End Date [employer] [address] [address] [place] [address] [id number] TAHIRA IVEY Self - patient is the insured 2 [employer] [address] [address] [place] [id number] Jm ANDINO - patient is the mexfxsl32/02/2022 Medical (General) History Medical History History ICD Code Bipolar Surgical History Surgery Date(Month/Year) Cholecystectomy Rotator cuff1/24Hospitalization History Reason Date(Month/Year) After Cholecystectomy Psych x1
--- OUTSIDE RECORDS SUMMARY | 2025-07-12 09:24 | XMS_ITS | Clinical Summary ---
Author Organization [facility] Address [address] [place], [place] [address] Care Team Providers Care User Interface Designer Name Role Phone Unavailable Primary Care Provider Unavailabl e Allergies Active AllergyReactionsCriticalityNoted DateCommentsMorphineHives,Unknown 09/16/2018 Severe itching SkwdmmztdddFhwkBip87/14/2024 Medications MedicationSigDispense QuantityRefillsLast FilledStart DateEnd DateStatus FLUoxetine [...] drink = 0.6 oz pure alcohol)rarePHQ-2AnswerDate RecordedPHQ-2 lgmvv373Sex and Gender InformationValueDate RecordedSex Assigned at BirthNot on fileLegal SexMale 11/29/2024 8:44 AM EDTGender IdentityNot on fileSexual OrientationNot on file Last Filed Vital Signs Vital SignReadingTime TakenCommentsBlood Oofjvopi195/8007 9:28 AM EDT Tktbs9912 9:28 AM EDTTemperature--Respiratory Rate--Oxygen Sumbgytuix59% 02/03/2025 9:28 AM EDTInhaled Oxygen Concentration--Weight--Height--Body Mass Index-- Plan of Treatment Health MaintenanceDue DateLast DoneCommentsAnxiety Gimzzswjh64/12/2001Depression Aqysrybyf59/12/2001HIV Tnfpodxca79/12/2001Hepatitis C Lnkgjgjmg89/12/2001 DTaP,Tdap,Td Vaccine (1 - Tdap)2001Hepatitis B Vaccine (1 of 3 - 19+ 3- dose series)2001HPV Vaccine (1 - 3-dose SCDM series)2009Lipid Fnvunyibk50/12/2018Covid-19 Vaccine ( - 2024- season)2025Influenza Vaccine (#1)2025 Insurance [place] [id number]
--- OUTSIDE RECORDS SUMMARY | 2025-07-14 08:45 | XMS_ITS | Patient Health Record ---
Author Organization [facility] es Address [address] [address] Care Team Providers Care Business Performance Advisor Name Role Phone Isaias Grady Primary Care [...] yourself in some way Not at allTotal Mfvkf1RrohsukyfpyfhBnsdljq DepressionTobacco Screen:Are you a: never smokerAlcohol Screening:Did you have a drink containing alcohol in the past year?NmIlzwrt7WlqohfucovywnpCfxbpout Problems Problem Type SNOMED Code ICD Code Onset Dates Problem Status W/U Status Risk Notes Problem Mixed bipolar affect kayla disorder, mild (224008232) Bipolar disorder, current episode mixed, mild (F31.61) ActiveconfirmedProblemTardive dyskinesia (114477441)Tardive dyskinesia (G24.01) Activeconfirmed Plan Of Treatment No Information Insurance Providers Payer Name Payer Address Payer Phone Subscriber Number Group Number Insured Name Patient Relationship to Insured Coverage Start Date Coverage End Date [employer] [address] [address] [place] [address] [id number] TAHIRA IVEY Self - patient is the insured 2 [employer] [address] [place] [id number] Jm ANDINO - patient is the ngcrigv34/02/2022 Medical (General) History Medical History History ICD Code Bipolar Surgical History Surgery Date(Month/Year) Cholecystectomy Rotator cuff1/24Hospitalization History Reason Date(Month/Year) After Cholecystectomy Psych x1
--- OUTSIDE RECORDS SUMMARY | 2025-07-14 08:45 | XMS_ITS | Clinical Summary ---
Author Organization [facility] Address [address] [facility] [place] [address] Care Team Providers Care Relief Salesperson Name Role Phone Georgia Davey NP Unavailable [phone] Montrell Serrano MD Primary Care Provider [phone] Eunice Rodríguez PMHNP- Unavailable Jj Swift DO Unavailable [phone] Allergies Active AllergyReactionsCriticalityNoted XrudOflgwmhxQqzcdeqoNnkcz23/28/2019 Severe itching ZcloouibxxnVwhjDww58/14/2024 Medications MedicationSigDispense QuantityRefillsLast FilledStart DateEnd DateStatus lamoTRIgine [...] 9:02 AM EDT): Continue with psych Joint xnuocczjr30/22/2025 Assessment & Plan (12/08/2024 9:32 AM EDT): Family hx RA Excessive qtiqhvzq73/22/2025 Assessment & Plan (12/08/2024 9:32 AM EDT): Check labs ??side effect meds?? Iyzegbsv02/22/2025Weight loss, tzdrdfsvcyozq05/22/2025 Assessment & Plan (01/24/2025 9:01 AM EDT): [...] as well ? Psych related? Bipolar 2 dzhamxum56/14/2025 Assessment & Plan (12/08/2024 6:11 AM EDT): Under the care of psychologist Current meds: fluoxetine, lamictal, inderal, ingrezza SAMRA (generalized anxiety disorder)11/30/2024Tardive nqzuuetdco16/14/2025 Assessment & Plan (01/24/2025 8:58 AM EDT): Working w psych Also has movement disorder Assessment & Plan (12/08/2024 6:11 AM EDT): Taking ingrezza Follow w psych Current episode of major depressive disorder without prior xapghuu3011/30/2024 Qtloxv7304/19/2024 Assessment & Plan (12/08/2024 9:32 AM EDT): [...] EST): Recommend exercise S/P arthroscopy of right uomkkeik51/29/2024Internal derangement of right oomvuqfh85/22/2023 Resolved Problems ProblemNoted DateDiagnosed DateResolved DateEncounter for [...] cream If not better contact office Rectal nvcedzlk92/ Assessment & Plan (06/13/2024 10:05 AM EST): When returning to room to give AVS, pt states that he has had rectal bleeding for the last several weeks. He believes he has an internal hemorrhoid Will refer to General surgeon for eval Bipolar 1 / Overview (09/08/2023): Pt has a hx of [...] AM EST): Continue with psych for managment Pnyvrfe84/ Overview (09/23/2023): Had normal CXR 10/10, 09/18/2023: [...] first with psych provider Deana Zaman in [place] to make sure ok to use with psych diagnosis [phone] 10/07/23 message regarding this , will await [...] cardiac, and anxiety Fu in 4 weeks Vmazefbe92/ Assessment & Plan (09/08/2023 9:36 AM EST): No hx of asthma, no smoking hx +family hx COPD/Emphysema, however members are smokers Check cxr and pft Fu in 4 weeks Encounters DateTypeDepartmentCare UjawHwkurtnckyp67/29/2025Refill [facility] [address] [facility] [address] [place] [address] Juliana Tillman LPN Bipolar 2 disorder (HCC); SAMRA (generalized anxiety disorder)05/11/2025Refill [facility] [address] [facility] [address] [place] [address] Eunice Rodríguez, JEFFERYP-BC Bipolar 2 disorder (HCC); [...] a week 09/07/2023How often do you attend yazdanism or jew services?More than 4 times per year09/07/2023o you belong to any clubs or organizations such as yazdanism groups, unions, fraternal or athletic groups, or school groups?Patient declined 09/07/2023How often do you attend meetings of the clubs or organizations you belong to?Patient sadjdwri72/19/2024re you , , , , never , or living with a partner?Xcgpopq8409/07/2023UDIT-C AnswerDate RecordedQ1: How often do you have [...] heating?Not hard at all09/07/2023HQ-2AnswerDate RecordedPatient Health Questionnaire-2 Unymo408Finut[facility] [place] of Occupational Health - Occupational Stress QuestionnaireAnswerDate [...] InformationValueDate RecordedSex Assigned at BirthNot on fileLegal VneXdwg1710/01/2022 7:11 PM EDTGender IdentityNot on fileSexual OrientationNot on file Last Filed Vital Signs Vital SignReadingTime TakenCommentsBlood Smwenrxv852/7208 7:52 AM EDT Ndipk5431 7:52 AM ISDKmpxirdlory08.6 ??C (97.8 ??F)01/24/2025 8:32 AM EDTRespiratory Fejm0878 8:32 AM EDTOxygen Vyihrfqozv07%01/24/2025 8:32 AM EDTInhaled Oxygen Concentration--Hxcnjx77.3 kg (188 lb)02/22/2025 7:52 AM EDT Isqbrp445.9 cm (6')06/29/2024 8:48 AM ESTBody Mass Index25. 8:48 AM EST Plan of Treatment DateTypeDepartmentCare Team (Latest Contact Info)Kgegbbjgpbi13/19/2026 3:30 PM ESTOffice Visit [facility] [address] [facility] [address] [place] [address] Eunice Rodríguez, [facility] [address] [facility] [address] [place] [address] Health MaintenanceDue DateLast DoneCommentsInfluenza VaccineDiscontinued Pneumococcal Vaccine: Pediatrics (0 to 5 Years) and At-Risk Patients (6 to 64 Years)Aged OutNo longer eligible based on patient's age to complete this topic Insurance Care Teams Team MemberRelationshipSpecialtyStart DateEnd Date Montrell Serrano MD PCP - GeneralFamily Medicine08/10/23 Georgia Davey NP Referring PhysicianFamily Aazlugvn21/16/23 Eunice Rodríguez [facility]PR[facility] [address] [facility] [address] [place] [address] Nurse PractitionerJewish Healthcare Center Jzbrsr73/4/24 Jj Swift DO [address] [facility] [address] [place] [address] RchphhrsaqmQfvuixxvi32/4/24
--- OUTSIDE RECORDS SUMMARY | 2025-07-14 08:45 | XMS_ITS | Clinical Summary ---
Author Organization [facility] Address [address] [place], [place] [address] Care Team Providers Care School Counselor Name Role Phone Unavailable Primary Care Provider Unavailabl e Allergies Active AllergyReactionsCriticalityNoted DateCommentsMorphineHives,Unknown 09/16/2018 Severe itching QsunnkgxyvySpaxApn23/14/2024 Medications MedicationSigDispense QuantityRefillsLast FilledStart DateEnd DateStatus FLUoxetine [...] drink = 0.6 oz pure alcohol)rarePHQ-2AnswerDate RecordedPHQ-2 xbxtq929Sex and Gender InformationValueDate RecordedSex Assigned at BirthNot on fileLegal SexMale 11/29/2024 8:44 AM EDTGender IdentityNot on fileSexual OrientationNot on file Last Filed Vital Signs Vital SignReadingTime TakenCommentsBlood Vhedpyql633/8007 9:28 AM EDT Sbcce8055 9:28 AM EDTTemperature--Respiratory Rate--Oxygen Scswbniqdm43% 02/03/2025 9:28 AM EDTInhaled Oxygen Concentration--Weight--Height--Body Mass Index-- Plan of Treatment Health MaintenanceDue DateLast DoneCommentsAnxiety Vsxghcxey86/12/2001Depression Ujkewhezg72/12/2001HIV Bqrjnmuim40/12/2001Hepatitis C Fqmteshxo24/12/2001 DTaP,Tdap,Td Vaccine (1 - Tdap)2001Hepatitis B Vaccine (1 of 3 - 19+ 3- dose series)2001HPV Vaccine (1 - 3-dose SCDM series)2009Lipid Gntbyvhpk39/12/2018Covid-19 Vaccine ( - 2024- season)2025Influenza Vaccine (#1)2025 Insurance [place] [id number]
[2025-07-14 09:35] LABS: Blood Urea Nitrogen 7.0 mg/dL (7.0-18.0); Calcium 8.8 mg/dL (8.5-10.1); Carbon Dioxide 29.4 mmol/L (21.0-32.0); Chloride 103 mmol/L (98-107); Estimated GFR (African America >60 (>=60 mL/min/1.73m^2); Estimated GFR (Non-African Ame >60 (>=60 mL/min/1.73m^2); Sodium 140 mmol/L (136-145); Uric Acid 5.0 mg/dL (3.5-7.2)
[2025-07-14 09:44] LABS: Calcium 24 Hour Urine 313.2 mg/24hr (100.0-300.0); Total Volume 24 Hour Urine 1800 mL/24hr
[2025-07-15 10:07] LABS: Magnesium, U 7.1 mg/dL (Not Estab.); Magnesium,Urine 24hr 127.8 mg/24 hr (12.0-293.0); Phosphorus, Urine 56.0 mg/dL (Not Estab.); Phosphorus,Urine 24h 1008 mg/24 hr (390-1425); Uric Acid, Urine 38.7 mg/dL (Not Estab.); Uric Acid,Urine 24hr 696.6 mg/24 hr (197.2-1078.7)
[2025-07-18 07:08] LABS: Citric Acid, U, 24hr 256 mg/24 hr (320-1240); Citric Acid, Urine 142 mg/L (Undefined)
[2025-07-18 10:21] LABS: BOX Test Reference Lab CLEVELAND CLINIC; BOX Test Sent Out 24 HR URINE OXALATE
== END 2025-07-14 08:43 | disposition home or self-care (01) ==
LOC: LAB 08:42
PROVIDERS: PCP Nurse Practitioner; Visit Provider Urology
DX: N20.0 Calculus of kidney (principal)
CPT/HCPCS: 36415; 82310; 82340; 82374; 82435; 82507; 82565; 82570; 83735; 83945; 83970; 84100; 84105; 84295; 84300; 84520; 84550; 84560